=== PATIENT | female | born 1940 | race Caucasian/White ===

== ENCOUNTER 2016-12-08 23:11 | Inpatient (IN) | payer OTHER ==
--- NOTE | 2016-12-08 23:58 | PDOC ---
History of Present Illness - General History Source: Patient Exam Limitations: No Limitations - History of Present Illness Initial Comments: 12/09/16 00:34 The patient is a 76 year old female with significant past medical history of hypertension, hyperlipidemia, diabetes, and COPD who presents to the ED with few days of nonradiating left-sided chest pain with SOB. Patient states her SOB is exacerbated with exertion and alleviated while lying supine with rest. She takes ventolin every night, but for the past few days she felt no improvement with the treatment. She states her SOB is not consistent with her COPD exacerbation. Patient denies lightheadedness, diaphoresis, arm pain, shoulder pain, and jaw pain. Patient reports she is normally active and is able to ambulate with cane. However, for the past days she has been feeling tired and complains of generalized weakness and slight nonproductive cough. Upon arrival patient had one episode of nonbloody vomit. The patient denies fever, chills, abdominal pain and diarrhea. Allergies: NKDA Social History: No alcohol, tobacco, or drug use reported. Past Surgical History: appendectomy, cholecystectomy, right ankle ORIF, umbilical hernia repair PCP: Dr. Cody Adorno <Chrissy Kinsey - Last Filed: 12/09/16 01:53> - General History Source: Patient <Shiraz Green - Last Filed: 12/09/16 01:58> - General Chief Complaint: Shortness of Breath Stated Complaint: SOB Time Seen by Provider: 12/08/16 23:58 Past History <Chrissy Kinsey - Last Filed: 12/09/16 01:53> - Past Medical History Anemia: Yes Asthma: No Cancer: No Cardiac Disorders: No CVA: No COPD: No CHF: No Dementia: No Diabetes: Yes (NIDDM) GI Disorders: Yes (diverticulosis,constipation) Disorders: No HTN: Yes Hypercholesterolemia: Yes Liver Disease: No Seizures: No - Surgical History Abdominal Surgery: Yes (repair umbilical hernia) Appendectomy: Yes Cardiac Surgery: No Cholecystectomy: Yes Lung Surgery: No Neurologic Surgery: No Orthopedic Surgery: Yes (ORIF, RIGHT ANKLE) - Immunization History Immunization Up to Date: Yes - Psycho/Social/Smoking Cessation Hx Anxiety: No Suicidal Ideation: No Smoking History: Never smoked Have you smoked in the past 12 months: No If you are a former smoker, when did you quit?: 2010 Information on smoking cessation initiated: No 'Breaking Loose' booklet given: 05/04/12 Hx Alcohol Use: No Drug/Substance Use Hx: No Substance Use Type: None Hx Substance Use Treatment: No <Jacklyn Greenan - Last Filed: 12/09/16 01:58> - Past Medical History Allergies/Adverse Reactions: Allergies Allergy/AdvReac Type Severity Reaction Status Date / Time No Known Drug Allergies Allergy Verified 12/08/16 23:20 Home Medications: Ambulatory Orders Aspirin Coated [Ecotrin -] 81 mg PO DAILY 05/03/12 Ezetimibe/Simvastatin [Vytorin 10-20 mg Tablet] 1 each PO HS 05/03/12 Ferrous Gluconate 325 mg PO DAILY 05/03/12 Glyburide 2.5 mg PO BID 05/03/12 Metoprolol Succinate [Toprol XL -] 50 mg PO HS 05/03/12 Pregabalin [Lyrica] 100 mg PO HS 05/03/12 Budesonide/Formeterol Fumarate [SYMBICORT 160/4.5mcg -] 2 inh PO DAILY 12/31/13 Metformin HCl [Glucophage -] 500 mg PO DAILY 12/31/13 Meclizine HCl [Antivert -] 25 mg PO Q6H PRN #0 tablet 01/02/14 Tiotropium [place] [Spiriva] 1 inh PO DAILY #1 01/02/14 Cholecalciferol (Vitamin D3) [Vitamin D3] 1,000 unit PO DAILY 06/18/14 Cyanocobalamin [Vitamin B12 -] 1,000 mcg PO DAILY 06/18/14 Review of Systems - Review of Systems Able to Perform ROS?: Yes Comments:: 12/09/16 00:34 CONSTITUTIONAL: +generalized weakness Absent: fever, chills, diaphoresis, malaise, loss of appetite HEENT: Absent: rhinorrhea, nasal congestion, throat pain, throat swelling, difficulty swallowing, mouth swelling, ear pain, eye pain, visual Changes CARDIOVASCULAR: +left-sided chest pain Absent: syncope, palpitations, irregular heart rate, lightheadedness, peripheral edema RESPIRATORY: +SOB, cough Absent: orthopnea, wheezing, stridor, hemoptysis GASTROINTESTINAL: +vomit Absent: abdominal pain, abdominal distension, diarrhea, constipation, melena, hematochezia GENITOURINARY: Absent: dysuria, frequency, urgency, hesitancy, hematuria, flank pain, genital pain MUSCULOSKELETAL: Absent: myalgia, arthralgia, joint swelling SKIN: Absent: rash, itching, pallor NEUROLOGIC: Absent: headache, focal weakness or paresthesias, dizziness, unsteady gait, seizure, mental status changes, bladder or bowel incontinence <Chrissy Kinsey - Last Filed: 12/09/16 01:53> *Physical Exam - Vital Signs Last Vital Signs Temp Pulse Resp BP Pulse Ox 99.7 F H 122 H 20 121/58 95 12/08/16 23:14 12/08/16 23:14 12/08/16 23:14 12/08/16 23:14 12/08/16 23:14 - Physical Exam Comments: 12/09/16 00:34 GENERAL: Well developed, well nourished. Awake and alert. No acute distress. HEENT: Normocephalic, atraumatic. PERRLA, EOMI. No conjunctival pallor. Sclera are non- icteric. Moist mucous membranes. Oropharynx is clear. NECK: Supple. Full ROM. No JVD. Carotid pulses 2+ and symmetric, without bruits. No thyromegaly. No lymphadenopathy. CARDIOVASCULAR: Tachycardia. Regular rhythm. No murmurs, rubs, or gallops. Distal pulses are 2+ and symmetric. PULMONARY: No evidence of respiratory distress. Lungs clear to auscultation bilaterally. No wheezing, rales or rhonchi. ABDOMINAL: Soft. Non-tender. Non-distended. No rebound or guarding. No organomegaly. Normoactive bowel sounds. MUSCULOSKELETAL Normal range of motion at all joints. No bony deformities or tenderness. No CVA tenderness. EXTREMITIES: No cyanosis. No clubbing. No edema. No calf tenderness. SKIN: Warm and dry. Normal capillary refill. No rashes. No jaundice. NEUROLOGICAL: Alert, awake, appropriate. Cranial nerves 2-12 intact. Moving all extremities. No gross focal neurological deficits. PSYCHIATRIC: Cooperative. Good eye contact. Appropriate mood and affect. <Chrissy Kinsey - Last Filed: 12/09/16 01:53> - Vital Signs Last Vital Signs Temp Pulse Resp BP Pulse Ox 99.7 F H 122 H 20 121/58 95 12/08/16 23:14 12/08/16 23:14 12/08/16 23:14 12/08/16 23:14 12/08/16 23:14 <Shiraz Green - Last Filed: 12/09/16 01:58> Heart Score/ECG Review - ECG Impressions Comment:: 12/09/16 01:02 Sinus tachycardia @116bpm RBBB Abnormal ECG <Chrissy Kinsey - Last Filed: 12/09/16 01:53> ED Treatment Course - LABORATORY CBC & Chemistry Diagram: 12/09/16 00:50 12/09/16 00:50 <Chrissy Kinsey - Last Filed: 12/09/16 01:53> - LABORATORY CBC & Chemistry Diagram: 12/09/16 00:50 12/09/16 00:50 <Shiraz Green - Last Filed: 12/09/16 01:58> Medical Decision Making - Medical Decision Making 12/09/16 01:46 Dr. Green: The scribe's documentation has been prepared under my direction and personally reviewed by me in its entirery. I confirm that the note above accurately reflects all work, treatment, procedures, and medical decision making performed by me. patient's H&H are 6.5 and 20.We will admit for transfusion of packed RBCs. <Shiraz Green - Last Filed: 12/09/16 01:58> *DC/Admit/Observation/Transfer - Attestations Scribe Attestion: 12/09/16 00:34 Documentation prepared by Chrissy Kinsey, acting as medical observer for Shiraz Green MD <Chrissy Kinsey - Last Filed: 12/09/16 01:53> - Discharge Dispostion Admit: Yes <Shiraz Green - Last Filed: 12/09/16 01:58> Diagnosis at time of Disposition: SOB (shortness of breath) Anemia Qualifiers: Anemia type: other cause - Discharge Dispostion Condition at time of disposition: Stable - Referrals Referrals: Cody Adorno MD [Primary Care Provider] -
[2016-12-09] MEDS ORDERED: ALBUTEROL SO4 2.5/IPRATROPIUM 0.5 INH SOL 3 ML VIAL.NEB. NEB STA (00:08)
[2016-12-09 01:12] LABS: BASOPHIL 0.4 % (0-2.0); EOSINOPHIL 0.7 % (0-4.5); MCH 33.2 pg (25.7-33.7); MCHC 32.5 g/dl (32.0-36.0); MEAN CELL VOLUME 102.4 fl (80-96); NEUTROPHILS 80.3 % (42.8-82.8); RDW 18.3 % (11.6-15.6)
[2016-12-09 01:28] LABS: INR 1.42 (0.82-1.09); PROTHROMBIN TIME (PATIENT) 15.7 SEC (9.98-11.88)
[2016-12-09 01:41] LABS: ALBUMIN 2.9 g/dl (3.4-5.0); CALCIUM 8.2 mg/dL (8.5-10.1); MAGNESIUM 1.7 mg/dL (1.8-2.4)
[2016-12-09 01:47] LABS: BILIRUBIN,TOTAL 0.7 mg/dL (0.2-1.0); CREATININE 1.2 mg/dL (0.55-1.02); TROPONIN I 0.05 ng/ml (0.00-0.05)
[2016-12-09] MEDS ORDERED: ALBUTEROL SO4 2.5/IPRATROPIUM 0.5 INH SOL 3 ML VIAL.NEB. NEB ONE (02:02)
[2016-12-09 02:13] LABS: MEAN PLT VOLUME 6.7 fl (7.5-11.1); PLATELET COMMENT2 NO CLOTTING DETECTED; PLATELET COUNT 84 K/MM3 (134-434)
[2016-12-09 02:14] LABS: PLATELET ESTIMATE DECREASED (NORMAL)
--- NOTE | 2016-12-09 02:43 | PN ---
<Brittney Zaragoza - Last Filed: 12/09/16 04:20> Teaching Attending Note ATTENDING PHYSICIAN STATEMENT I saw and evaluated the patient. I reviewed the resident's note and discussed the case with the resident. I agree with the resident's findings and plan as documented. Imaging data and chart reviewed SUBJECTIVE: Patient is a 76 yo F with a PMHx of hypertension, hyperlipidemia, diabetes, and COPD who presents with SOB and exercise intolerance which worsened over the past 1-2 days. Patient notes her SOB is exacerbated by exertion and alleviated when she is at rest. She notes that that her SOB is not consistent with her typical COPD symptoms. Patient also reports an associated dry cough. Patient also vomited once upon arrival to the ED. Patient reports there was no blood in the vomit. She denies bleeding anywhere recently. Patient reports chronic arthritic shoulder pain in addition to her chief complaint of SOB. Denies: fever, chills, abdominal pain and diarrhea. Allergies: NKDA Social History: Former smoker, quit 10 years ago, 2 ppd from ages [age] yo. No alcohol, or drug use reported. Past Surgical History: appendectomy, cholecystectomy, right ankle ORIF, umbilical hernia repair, endarterectomy, PCP: Dr. Cody Adorno OBJECTIVE: Last Vital Signs Temp Pulse Resp BP Pulse Ox 98.1 F 122 H 20 121/58 95 12/09/16 04:04 12/08/16 23:14 12/08/16 23:14 12/08/16 23:14 12/08/16 23:14 GENERAL: Awake, alert, and fully oriented, in no acute distress. HEENT: Atraumatic. Moist mucosa. Normocephalic. No sinus tenderness. No LAD. Pale sclera bilaterally. NECK: No JVD. No thyroid masses. Supple. Left oblique neck scar. LUNGS: Slight bilateral crackles L more than R. HEART: Regular rate and rhythm, normal S1 and S2, hollow systolic murmur noted, peripheral pulses normal and equal bilaterally. ABDOMEN: Obese, soft, nontender, normoactive bowel sounds. No guarding, no rebound. No Masses. No hepatosplenomegaly noted. MUSCULOSKELETAL: No joint tenderness or erythema. No muscle tenderness. Normal muscle bulk and tone. EXTREMITIES: Normal inspection, No edema. No clubbing or cyanosis. Moves all extremities. NEUROLOGICAL: Normal speech, no focal sensorimotor deficits. SKIN: Warm, dry, normal turgor, no rashes or lesions noted. CBCD WBC 6.0 K/mm3 (4.0-10.0) D 12/09/16 00:50 RBC 1.95 M/mm3 (3.60-5.2) L D 12/09/16 00:50 Hgb 6.5 GM/dL (10.7-15.3) L* D 12/09/16 00:50 Hct 20.0 % (32.4-45.2) L D 12/09/16 00:50 MCV 102.4 fl (80-96) H 12/09/16 00:50 MCHC 32.5 g/dl (32.0-36.0) 12/09/16 00:50 RDW 18.3 % (11.6-15.6) H D 12/09/16 00:50 Plt Count 84 K/MM3 (134-434) L D 12/09/16 00:50 MPV 6.7 fl (7.5-11.1) L 12/09/16 00:50 CMP Sodium 142 mmol/L (136-145) 12/09/16 00:50 Potassium 3.7 mmol/L (3.5-5.1) 12/09/16 00:50 Chloride 108 mmol/L (98-107) H 12/09/16 00:50 Carbon Dioxide 19 mmol/L (21-32) L D 12/09/16 00:50 Anion Gap 15 (8-16) 12/09/16 00:50 BUN 31 mg/dL (7-18) H D 12/09/16 00:50 Creatinine 1.2 mg/dL (0.55-1.02) H 12/09/16 00:50 Creat Clearance w eGFR 43.56 (>60) 12/09/16 00:50 Calcium 8.2 mg/dL (8.5-10.1) L 12/09/16 00:50 Total Bilirubin 0.7 mg/dL (0.2-1.0) 12/09/16 00:50 AST 21 U/L (15-37) 12/09/16 00:50 ALT 17 U/L (12-78) D 12/09/16 00:50 Alkaline Phosphatase 43 U/L (45-117) L D 12/09/16 00:50 Total Protein 6.0 g/dl (6.4-8.2) L 12/09/16 00:50 Albumin 2.9 g/dl (3.4-5.0) L D 12/09/16 00:50 Chest X-ray Impression: Left small pleural effusion vs atelectasis. No obvious consolidations noted. Pending official report. ASSESSMENT AND PLAN: Patient is a 76 yo F with a PMHx of hypertension, hyperlipidemia, diabetes, and COPD who was admitted for symptomatic anemia. 1.) Symptomatic Macrocytic Anemia uncertain etiology. Denies ETOH abuse or thyroid disorders. -Send Vitamin B12 level -TSH -Send ferritin -Send iron studies -Send haptoglobin -Send josesito test -Peripheral RBC smear -G6 PD level -Send fecal culture blood test in stool -Hematology eval in AM -Vitamin B12 and folate supplementation -Transfuse 1 unit of PRBC 2.) Thrombocytopenia of undetermined etiology should rule out splenomegaly and medication induced causes -Abdominal US -Send hepatitis panel -Send HIV serology if pt agrees 3.) WAYNE -Send urine lytes -UA -Gentle IV fluid hydration 4.) DM -Insulin Sliding scale -Diabetic diet 5.) COPD controlled. No signs of current exacerbation. -Continue albuterol PRN -Continue home meds 6.) DVT ppx avoid heparin in light of thrombocytopenia and anemia. -Intermittent compression stockings Documentation prepared by Brittney Zaragoza, acting as medical doctor for Macario Davies M.D. <Macario Davies - Last Filed: 02/13/17 07:02> Teaching Attending Note Name of Resident: Tiffanie Nunez ATTENDING PHYSICIAN STATEMENT I saw and evaluated the patient. I reviewed the resident's note and discussed the case with the resident. I agree with the resident's findings and plan as documented. SUBJECTIVE: OBJECTIVE: ASSESSMENT AND PLAN:
--- NOTE | 2016-12-09 02:49 | HP ---
CHIEF COMPLAINT: Shortness of breath PCP: Dr. Cody Adorno HISTORY OF PRESENT ILLNESS: Patient is a 76 year old female with a PMHx of HTN, HLD, DMII, and COPD who presents for increasing shortness of breath for the last week that worsened in the last two days. Patient reports the shortness of breath is exacerbated on exertion. Patient states when she walks through the hallway of her house or goes up the stairs, after 7 steps, she begins to have shortness of breath. Patient also reports chronic left neck and shoulder pain due to nerve damage that is causing her to have reproducible left chest soreness. Patient does report she had one episode of nonbloody nonbilious vomiting when arriving to the ED as well as a dry cough. Patient reports these symptoms are not typical COPD symptoms. Otherwise, patient denies any fever, chills, nausea, abdominal pain, palpitations, headaches, diaphoresis, acute visual changes, dizziness, loss of consciousness. ER course was notable for: (1) Chest x-ray (2) DuoNeb x1 (3) Recent Travel: Denies PAST MEDICAL HISTORY: HTN, HLD, DMII, and COPD PAST SURGICAL HISTORY: appendectomy, cholecystectomy, right ankle ORIF, umbilical hernia repair, endarterectomy Social History: Smoking: Former smoker, quit 10 years ago. Smoked 2PPD from age [age]. Alcohol: Denies Drugs: Denies Family History: Denies Allergies: No Known Drug Allergies Allergy (Verified 12/08/16 23:20) HOME MEDICATIONS: Medication Instructions Recorded Aspirin Coated [Ecotrin -] 81 mg PO DAILY 05/03/12 Ezetimibe/Simvastatin [Vytorin 1 each PO HS 05/03/12 10-20 mg Tablet] Ferrous Gluconate 325 mg PO DAILY 05/03/12 Glyburide 2.5 mg PO BID 05/03/12 Metoprolol Succinate [Toprol XL -] 50 mg PO HS 05/03/12 Pregabalin [Lyrica] 100 mg PO HS 05/03/12 Budesonide/Formeterol Fumarate 2 inh PO DAILY 12/31/13 [SYMBICORT 160/4.5mcg -] Metformin HCl [Glucophage -] 500 mg PO DAILY 12/31/13 Meclizine HCl [Antivert -] 25 mg PO Q6H PRN #0 tablet 01/02/14 Tiotropium [place] [Spiriva] 1 inh PO DAILY #1 01/02/14 Cholecalciferol (Vitamin D3) 1,000 unit PO DAILY 06/18/14 [Vitamin D3] Cyanocobalamin [Vitamin B12 -] 1,000 mcg PO DAILY 06/18/14 REVIEW OF SYSTEMS CONSTITUTIONAL: Absent: fever, chills, diaphoresis, generalized weakness, malaise, loss of appetite, weight change HEENT: Absent: rhinorrhea, nasal congestion, throat pain, throat swelling, difficulty swallowing, mouth swelling, ear pain, eye pain, visual changes CARDIOVASCULAR: Absent: chest pain, syncope, palpitations, irregular heart rate, lightheadedness , peripheral edema RESPIRATORY: Absent: cough, shortness of breath, dyspnea with exertion, orthopnea, wheezing, stridor, hemoptysis GASTROINTESTINAL: Absent: abdominal pain, abdominal distension, nausea, vomiting, diarrhea, constipation, melena, hematochezia GENITOURINARY: Absent: dysuria, frequency, urgency, hesitancy, hematuria, flank pain, genital pain MUSCULOSKELETAL: Absent: myalgia, arthralgia, joint swelling, back pain, neck pain SKIN: Absent: rash, itching, pallor HEMATOLOGIC/IMMUNOLOGIC: Absent: easy bleeding, easy bruising, lymphadenopathy, frequent infections ENDOCRINE: Absent: unexplained weight gain, unexplained weight loss, heat intolerance, cold intolerance NEUROLOGIC: Absent: headache, focal weakness or paresthesias, dizziness, unsteady gait, seizure, mental status changes, bladder or bowel incontinence PSYCHIATRIC: Absent: anxiety, depression, suicidal or homicidal ideation, hallucinations. PHYSICAL EXAMINATION Vital Signs - 24 hr 12/08/16 23:14 Temperature 99.7 F H Pulse Rate 122 H Respiratory 20 Rate Blood Pressure 121/58 O2 Sat by Pulse 95 Oximetry (%) GENERAL: Awake, alert, and fully oriented, in no acute distress. HEAD: Normal with no signs of trauma. EYES: Pupils equal, round and reactive to light, extraocular movements intact, sclera anicteric, conjunctiva clear. No lid lag. EARS, NOSE, THROAT: Ears normal, nares patent, oropharynx clear without exudates. Moist mucous membranes. NECK: Supple without lymphadenopathy, thyromegaly, JVD, or masses. LUNGS: Bibasilar crackles, no wheezes. No accessory muscle use. HEART: Regular rate and rhythm, normal S1 and S2 without murmur, rub or gallop. ABDOMEN: Obese, Soft, nontender, not distended, normoactive bowel sounds, no guarding, no rebound, no masses. No hepatomegaly or splenomegaly. . EXTREMITIES: No calf tenderness. No peripheral edema. No clubbing or cyanosis. NEUROLOGICAL: No focal deficits. Normal speech. SKIN: Warm, dry, normal turgor, no rashes or lesions noted. Laboratory Results - last 24 hr 12/09/16 12/09/16 12/09/16 00:50 00:50 00:50 WBC 6.0 D RBC 1.95 L D Hgb 6.5 L* D Hct 20.0 L D MCV 102.4 H MCHC 32.5 RDW 18.3 H D Plt Count 84 L D MPV 6.7 L Neutrophils % 80.3 D Lymphocytes % 11.4 D Monocytes % 7.2 Eosinophils % 0.7 Basophils % 0.4 Platelet Estimate Decreased Platelet Comment No clotting detected INR 1.42 H Sodium 142 Potassium 3.7 Chloride 108 H Carbon Dioxide 19 L D Anion Gap 15 BUN 31 H D Creatinine 1.2 H Creat Clearance w eGFR 43.56 Random Glucose 182 H D Calcium 8.2 L Magnesium 1.7 L Total Bilirubin 0.7 AST 21 ALT 17 D Alkaline Phosphatase 43 L D Creatine Kinase 71 Troponin I 0.05 B-Natriuretic Peptide 205.43 Total Protein 6.0 L Albumin 2.9 L D Crossmatch 12/09/16 02:20 WBC RBC Hgb Hct MCV MCHC RDW Plt Count MPV Neutrophils % Lymphocytes % Monocytes % Eosinophils % Basophils % Platelet Estimate Platelet Comment INR Sodium Potassium Chloride Carbon Dioxide Anion Gap BUN Creatinine Creat Clearance w eGFR Random Glucose Calcium Magnesium Total Bilirubin AST ALT Alkaline Phosphatase Creatine Kinase Troponin I B-Natriuretic Peptide Total Protein Albumin Crossmatch See Detail EKG: Sinus tachycardia @116bpm RBBB Abnormal ECG Chest X-ray: Cardiomegaly with increased pulmonary markings. Left pleural effusion vs. atelectasis ASSESSMENT/PLAN: Patient is a 76 year old female with a PMHx of HTN, HLD, DMII, and COPD who presented to the ED complaining of shortness of breath and was found to have symptomatic anemia with a hemoglobin of 6.5 and thrombocytopenia. Patient admitted to med/surg for further monitoring and management. Symptomatic Macrocytic Anemia -Denies alcohol abuse or thyroid disorder -Ferritin, TIBC, FE, Haptoglobin, Reticulocyte, LDH ordered -TSH ordered -Vitamin B12 ordered -Acute Hepatitis Panel ordered -2 units of PRBC's ordered -Repeat CBC -Recommend ordering peripheral smear -Stool for occult blood ordered -Heme/Onco consult placed Thrombocytopenia of unknown etiology -Abdominal U/S to rule out splenomegaly -HIV panel ordered -Hepatitis panel ordered -Continue to monitor CBC Acute Kidney Injury -Creatinine of 1.2 with baseline of 1.0 -Light hydration with IV NS @50mls/hr -Urine electrolytes -U/A CAD -Continue ASA 81mg HTN -Continue Toprol XL 50mg daily -Continue to monitor BP DMII -Insulin sliding scale -BGM HLD -Continue Vytorin 10-20mg COPD -Continue Spiriva and Symbicort F/E/N -Light hydration with 50mls/hr -Electrolytes wnl -Diabetic and sodium controlled diet Prophylaxis -SCD's for DVT -No GI required Disposition -Full code -Admitted to med/surg. Awaiting Hematology evaluation Visit type - Emergency Visit Emergency Visit: Yes ED Registration Date: 12/09/16 Care time: The patient presented to the Emergency Department on the above date and was hospitalized for further evaluation of their emergent condition. - New Patient This patient is new to me today: Yes Date on this admission: 12/09/16 - Critical Care Critical Care patient: No
[2016-12-09] MEDS ORDERED: SODIUM CHLORIDE 1,000 ML IV SCH (03:00)
[2016-12-09] MEDS ORDERED: LIDOCAINE 5% TOPICAL PATCH TP SCH (04:00)
[2016-12-09 04:34] LABS: FERRITIN 22.868 ng/ml (6.9-282.5); THYROID STIMULATING HORMONE 3.51 uIU/ml (0.358-3.74)
[2016-12-09] MEDS ORDERED: ACETAMINOPHEN 325 MG TABLET (FP) PO PRN (06:34)
[2016-12-09] MEDS: SODIUM CHLORIDE 1,000 ML IV SCH ×2 (08:47→17:22)
[2016-12-09 08:57] LABS: BASOPHIL 0.6 % (0-2.0); EOSINOPHIL 1.4 % (0-4.5); MCH 33.1 pg (25.7-33.7); MCHC 32.7 g/dl (32.0-36.0); MEAN CELL VOLUME 101.4 fl (80-96); MEAN PLT VOLUME 6.7 fl (7.5-11.1); NEUTROPHILS 67.3 % (42.8-82.8); PLATELET COUNT 78 K/MM3 (134-434); RDW 18.3 % (11.6-15.6); WHITE BLOOD COUNT 4.3 K/mm3 (4.0-10.0)
[2016-12-09 09:44] LABS: CALCIUM 7.9 mg/dL (8.5-10.1); CREATININE 1.1 mg/dL (0.55-1.02); TOT PROT 5.8 g/dl (6.4-8.2); TROPONIN I 0.3 ng/ml (0.00-0.05)
[2016-12-09 10:42] LABS: HIV 1 & 2 AB NEGATIVE; HIV 1 AGp24 NEGATIVE
[2016-12-09] MEDS: TIOTROPIUM BROMIDE 18 MCG/INH (DEVICE W/ 5 CAPSULES) IH SCH (12:49)
[2016-12-09] MEDS: ASPIRIN 81 MG CHEWABLE TABLETS PO SCH (12:49)
[2016-12-09] MEDS: BUDESONIDE/FORMETEROL FUMARATE 160/4.5 mcg INHALER IH SCH (12:50)
[2016-12-09 14:07] VITALS: BMI 31.4
--- NOTE | 2016-12-09 14:12 | EKG ---
Test Reason : Blood Pressure : / mmHG Vent. Rate : 116 BPM Atrial Rate : 116 BPM P-R Int : 154 ms QRS Dur : 138 ms QT Int : 376 ms P-R-T Axes : 059 083 032 degrees QTc Int : 522 ms SINUS TACHYCARDIA RIGHT BUNDLE BRANCH BLOCK ABNORMAL ECG WHEN COMPARED WITH ECG OF 16-SEP-2016 18:26, BORDERLINE CRITERIA FOR LATERAL INFARCT ARE NO LONGER PRESENT Confirmed by CHRIS HU MD ([id number]) on 12/09/2016 2:12:11 PM Referred By: Confirmed By:CHRIS HU MD
[2016-12-09] MEDS: INSULIN SLIDING SCALE (NOVOLOG) 1 VIAL SQ SCH ×4 (14:47→21:53)
--- NOTE | 2016-12-09 16:32 | CONSULT ---
Consult - text type - Consultation Consultation Note: The patient is a 76 year old female with significant past medical history of hypertension, hyperlipidemia, diabetes, and COPD who presents to the ED with few days of nonradiating left-sided chest pain with SOB. Patient states her SOB is exacerbated with exertion and alleviated while lying supine with rest. Patient denies lightheadedness, diaphoresis, arm pain, shoulder pain, and jaw pain. Patient reports she is normally active and is able to ambulate with cane. However, for the past days she has been feeling tired and complains of generalized weakness and slight nonproductive cough. The patient denies fever, chills, abdominal pain and diarrhea. Allergies: NKDA Social History: No alcohol, tobacco, or drug use reported. Past Surgical History: appendectomy, cholecystectomy, right ankle ORIF, umbilical hernia repair - Past Medical History Anemia: Yes Diabetes: Yes (NIDDM) GI Disorders: Yes (diverticulosis,constipation) HTN: Yes Hypercholesterolemia: Yes - Surgical History Abdominal Surgery: Yes (repair umbilical hernia) Appendectomy: Yes Cholecystectomy: Yes Orthopedic Surgery: Yes (ORIF, RIGHT ANKLE) - Immunization History Immunization Up to Date: Yes - Psycho/Social/Smoking Cessation Hx Smoking History: Never smoked Allergies/Adverse Reactions: Allergies Allergy/AdvReac Type Severity Reaction Status Date / Time No Known Drug Allergies Allergy Verified 12/08/16 23:20 Home Medications: Ambulatory Orders Aspirin Coated [Ecotrin -] 81 mg PO DAILY 05/03/12 Ezetimibe/Simvastatin [Vytorin 10-20 mg Tablet] 1 each PO HS 05/03/12 Ferrous Gluconate 325 mg PO DAILY 05/03/12 Glyburide 2.5 mg PO BID 05/03/12 Metoprolol Succinate [Toprol XL -] 50 mg PO HS 05/03/12 Pregabalin [Lyrica] 100 mg PO HS 05/03/12 Budesonide/Formeterol Fumarate [SYMBICORT 160/4.5mcg -] 2 inh PO DAILY 12/31/13 Metformin HCl [Glucophage -] 500 mg PO DAILY 12/31/13 Meclizine HCl [Antivert -] 25 mg PO Q6H PRN #0 tablet 01/02/14 Tiotropium [place] [Spiriva] 1 inh PO DAILY #1 01/02/14 Cholecalciferol (Vitamin D3) [Vitamin D3] 1,000 unit PO DAILY 06/18/14 Cyanocobalamin [Vitamin B12 -] 1,000 mcg PO DAILY 06/18/14 Current Medications Acetaminophen (Tylenol -) 650 mg PO Q6H PRN PRN Reason: PAIN Aspirin (Asa -) 81 mg PO DAILY [facility] Last Admin: 12/09/16 12:49 Dose: 81 mg Atorvastatin Calcium (Lipitor -) 10 mg PO HS [facility] Budesonide/Formoterol Fumarate (Symbicort 160/4.5mcg -) 2 puff IH DAILY [facility] Last Admin: 12/09/16 12:50 Dose: 2 inh Ezetimibe (Zetia -) 10 mg PO HS [facility] Sodium Chloride (Normal Saline -) 1,000 mls @ 83 mls/hr IV ASDIR [facility] Last Admin: 12/09/16 07:05 Dose: Not Given Sodium Chloride (Normal Saline -) 1,000 mls @ 50 mls/hr IV ASDIR [facility] Stop: 12/10/16 05:48 Last Admin: 12/09/16 08:47 Dose: Not Given Insulin Aspart (Novolog Vial Sliding Scale -) 1 vial SQ ACHS [facility] PRN Reason: Protocol Last Admin: 12/09/16 14:48 Dose: Not Given Lidocaine (Lidoderm Patch -) 1 patch TP ASDIR [facility] Last Admin: 12/09/16 07:04 Dose: Not Given Metoprolol Succinate (Toprol Xl -) 50 mg PO [facility] Tiotropium [place] (Spiriva -) 1 puff IH DAILY [facility] Last Admin: 12/09/16 12:49 Dose: 1 puff - Vital Signs Last Vital Signs Temp Pulse Resp BP Pulse Ox 99.7 F H 122 H 20 121/58 95 12/08/16 23:14 12/08/16 23:14 12/08/16 23:14 12/08/16 23:14 12/08/16 23:14 HEENT: ALLEN, EOM Intact Cor: RSR, No murmurs, No gallops Lungs: Clear to P&A Abd: Soft, Normal bowel sounds, No organomegaly Ext:No significant edema Skin: No rashes, Integument intact Abnormal Lab Results 12/09/16 12/09/16 12/09/16 00:50 00:50 00:50 RBC 1.95 L D Hgb 6.5 L* D Hct 20.0 L D MCV 102.4 H RDW 18.3 H D Plt Count 84 L D MPV 6.7 L Retic Count INR 1.42 H Chloride 108 H Carbon Dioxide 19 L D BUN 31 H D Creatinine 1.2 H Random Glucose 182 H D Calcium 8.2 L Magnesium 1.7 L Alkaline Phosphatase 43 L D Troponin I Total Protein 6.0 L Albumin 2.9 L D Direct Antiglob Test Crossmatch 12/09/16 12/09/16 12/09/16 00:50 02:20 06:00 RBC 2.13 L Hgb 7.1 L Hct 21.6 L MCV 101.4 H RDW 18.3 H Plt Count 78 L MPV 6.7 L Retic Count 13.28 H* INR Chloride Carbon Dioxide BUN Creatinine Random Glucose Calcium Magnesium Alkaline Phosphatase Troponin I Total Protein Albumin Direct Antiglob Test Crossmatch See Detail 12/09/16 12/09/16 08:15 08:40 RBC Hgb Hct MCV RDW Plt Count MPV Retic Count INR Chloride 112 H Carbon Dioxide 20 L BUN 31 H Creatinine 1.1 H Random Glucose 125 H D Calcium 7.9 L Magnesium Alkaline Phosphatase 42 L Troponin I 0.30 H Total Protein 5.8 L Albumin 3.0 L Direct Antiglob Test Positive H Crossmatch A/P 76 y/o patient with HTN, DM. COPD, comes in with symptomatic anemia Macrocytic anemia-- chronic macrocytosis/new onset anemia acute onset ---nl hemoglobin 11/16 nl B12/TSH Liver U/S -- hepatosplenomegaly with coarse echotexture s/o liver disease vs fatty liver Will check stool occult ferritin --22 await iron saturation LDH--nlhaptoglobin pending. Edilia 1+ IgG/C3 neg. LDH nl hence brisk hemolysis unlikely Reticulocyte production index > 3% suggestive of normal marrow response to severe anemia Suspect liver disease/ and acute onset suggestive of gi bleed MDS in the differential but less likely Would get GI consult Thrombocytopenia -- chronic since 2010 ?--suspect liver disease MDS/ITP is in the differential but less likely Patient refusing any invasive w/u at this time. In the past refused liver biopsy. will follow
[2016-12-09] MEDS ORDERED: INSULIN (NOVOLOG) ASPART 100 UNITS/ML 10ML VIAL ONE (16:41)
--- NOTE | 2016-12-09 17:17 | PN ---
Physical Exam: SUBJECTIVE: Patient seen and examined at bedside in ER. Pt states she has had increasing sob for 1 week that has worsened over last 2 days and is exacerbated with exertion. She had 1 episode on non-bilious, non-bloody vomitus in ED this AM. Currently feels better after receiving 1st of 2 PRBCs. She did feel as though she had tachycardia at times during this week. Currently denies N/V/F/C , SOB at rest, CP, light-headedness, dizziness, palpitations. OBJECTIVE: Vital Signs Temperature 97.9 F 12/09/16 14:04 Pulse Rate 91 H 12/09/16 14:04 Respiratory Rate 16 12/09/16 14:04 Blood Pressure 105/57 12/09/16 14:04 O2 Sat by Pulse Oximetry (%) 97 12/09/16 13:09 GENERAL: The patient is awake, alert, and fully oriented, in no acute distress. HEAD: Normal with no signs of trauma. EYES: PERRL, extraocular movements intact, sclera anicteric, conjunctiva clear. No ptosis. ENT: Ears normal, nares patent, oropharynx clear without exudates, moist mucous membranes. NECK: Trachea midline, full range of motion, supple. LUNGS: Breath sounds equal, clear to auscultation bilaterally, no wheezes, no crackles, no accessory muscle use. HEART: Regular rate and rhythm, S1, S2 without murmur, rub or gallop. ABDOMEN: Soft, nontender, nondistended, normoactive bowel sounds, no guarding, no rebound, no hepatosplenomegaly, no masses. EXTREMITIES: 2+ pulses, warm, well-perfused, no edema. NEUROLOGICAL: . Normal speech, gait not observed. PSYCH: Normal mood, normal affect. SKIN: Warm, dry, normal turgor, no rashes or lesions noted Laboratory Results - last 24 hr 12/09/16 12/09/16 12/09/16 02:20 04:00 04:00 WBC RBC Hgb Hct MCV MCHC RDW Plt Count MPV Neutrophils % Lymphocytes % Monocytes % Eosinophils % Basophils % Haptoglobin Cancelled Sodium Potassium Chloride Carbon Dioxide Anion Gap BUN Creatinine Creat Clearance w eGFR Random Glucose Calcium Ferritin 22.868 Total Bilirubin AST ALT Alkaline Phosphatase LD Total 178 Troponin I Total Protein Albumin Vitamin B12 648 TSH 3.51 HIV 1&2 Antibody Screen HIV P24 Antigen Blood Type A POSITIVE Antibody Screen Negative Direct Antiglob Test Crossmatch See Detail 12/09/16 12/09/16 12/09/16 06:00 08:15 08:40 WBC 4.3 RBC 2.13 L Hgb 7.1 L Hct 21.6 L MCV 101.4 H MCHC 32.7 RDW 18.3 H Plt Count 78 L MPV 6.7 L Neutrophils % 67.3 Lymphocytes % 21.5 D Monocytes % 9.2 Eosinophils % 1.4 D Basophils % 0.6 Haptoglobin Sodium 145 Potassium 4.0 Chloride 112 H Carbon Dioxide 20 L Anion Gap 13 BUN 31 H Creatinine 1.1 H Creat Clearance w eGFR 48.16 Random Glucose 125 H D Calcium 7.9 L Ferritin Total Bilirubin 1.0 D AST 20 ALT 18 Alkaline Phosphatase 42 L LD Total Troponin I 0.30 H Total Protein 5.8 L Albumin 3.0 L Vitamin B12 TSH HIV 1&2 Antibody Screen HIV P24 Antigen Blood Type Antibody Screen Direct Antiglob Test Positive H Crossmatch 12/09/16 08:40 WBC RBC Hgb Hct MCV MCHC RDW Plt Count MPV Neutrophils % Lymphocytes % Monocytes % Eosinophils % Basophils % Haptoglobin Sodium Potassium Chloride Carbon Dioxide Anion Gap BUN Creatinine Creat Clearance w eGFR Random Glucose Calcium Ferritin Total Bilirubin AST ALT Alkaline Phosphatase LD Total Troponin I Total Protein Albumin Vitamin B12 TSH HIV 1&2 Antibody Screen Negative HIV P24 Antigen Negative Blood Type Antibody Screen Direct Antiglob Test Crossmatch Active Medications Generic Name Dose Route Start Last Admin Trade Name Freq PRN Reason Stop Dose Admin Acetaminophen 650 mg 12/09/16 06:34 Tylenol - PO Q6H PRN PAIN Aspirin 81 mg 12/09/16 10:00 12/09/16 12:49 Asa - PO 81 mg DAILY KRIS Administration Atorvastatin Calcium 10 mg 12/09/16 22:00 Lipitor - PO HS KRIS Budesonide/Formoterol Fumarate 2 puff 12/09/16 10:00 12/09/16 12:50 Symbicort 160/4.5mcg - IH 2 inh DAILY KRIS Administration Ezetimibe 10 mg 12/09/16 22:00 Zetia - PO HS KRIS Sodium Chloride 1,000 mls @ 50 mls/hr 12/09/16 06:00 12/09/16 08:47 Normal Saline - IV 12/10/16 05:48 Not Given ASDIR KRIS Insulin Aspart 1 vial 12/09/16 07:00 12/09/16 16:42 Novolog Vial Sliding Scale - SQ 2 units ACHS KRIS Administration Protocol Lidocaine 1 patch 12/09/16 04:00 12/09/16 07:04 Lidoderm Patch - TP Not Given ASDIR KRIS Metoprolol Succinate 50 mg 12/09/16 22:00 Toprol Xl - PO HS KRIS Tiotropium [place] 1 puff 12/09/16 10:00 12/09/16 12:49 Spiriva - IH 1 puff DAILY KRIS Administration ASSESSMENT/PLAN: 76 y/o F with PMH of HTN, HLD, DMII, and COPD who presented to the ED with progressively worsening SOB over 1 week and found to have macrocytic anemia with a Hgb of 6.5 -SOB secondary to macrocytic anemia -2 PRBCs transfused -f/u CBC after 2nd unit -f/u iron studies, haptoglobin, fobt -ferritin 22 -B12, TSH nl -retic 13 -GI consulted -Thrombocytopenia -Pt states she has a baseline of platelets in 70s and follows them with Dr. Adorno -heme/onc on board -abd u/s: hepatosplenomegaly with coarse echotexture s/o liver disease vs fatty liver -secondary to liver disease -HIV negative -f/u hep panel -WAYNE -Cr 1.1, baseline 1 -improving -NS @ 50ml/hr -CAD -c/w asa -HTN -c/w toprol xl 50 mg po qd -DMII -c/w ISS, BGMs -COPD -c/w spiriva and symbicort -HLD -c/w zetia 10 mg po qhs -DVT ppx -SCDs -FEN -NS@50ml/hr -Diabetic and sodium controlled diet Problem List - Problems (1) Anemia Code(s): D64.9 - ANEMIA, UNSPECIFIED Qualifiers: Anemia type: other cause (2) SOB (shortness of breath) Code(s): R06.02 - SHORTNESS OF BREATH (3) CAD (coronary artery disease) Code(s): I25.10 - ATHSCL HEART DISEASE OF [place] CORONARY ARTERY W/O ANG PCTRS Qualifiers: Coronary Disease-Associated Artery/Lesion type: [place] artery [place] vs. transplanted heart: [place] heart Associated angina: without angina Qualified Code(s): I25.10 - Atherosclerotic heart disease of [place] coronary artery without angina pectoris (4) COPD (chronic obstructive pulmonary disease) Code(s): J44.9 - CHRONIC OBSTRUCTIVE PULMONARY DISEASE, UNSPECIFIED Qualifiers : COPD type: unspecified COPD Qualified Code(s): J44.9 - Chronic obstructive pulmonary disease, unspecified (5) Diabetes Code(s): E11.9 - TYPE 2 DIABETES MELLITUS WITHOUT COMPLICATIONS Qualifiers: Diabetes mellitus type: type 2 Diabetes mellitus complication status: without complication Diabetes mellitus nursing home insulin use: without termite treater use Qualified Code(s): E11.9 - Type 2 diabetes mellitus without complications (6) HTN (hypertension) Code(s): I10 - ESSENTIAL (PRIMARY) HYPERTENSION Qualifiers: Hypertension type: essential hypertension Qualified Code(s): I10 - Essential (primary) hypertension (7) Hypercholesterolemia Code(s): E78.0 - PURE HYPERCHOLESTEROLEMIA * DO NOT USE * Visit type - Emergency Visit Emergency Visit: Yes ED Registration Date: 12/09/16 Care time: The patient presented to the Emergency Department on the above date and was hospitalized for further evaluation of their emergent condition. - New Patient This patient is new to me today: Yes Date on this admission: 12/09/16 - Critical Care Critical Care patient: No
[2016-12-09] MEDS ORDERED: LIDOCAINE 5% TOPICAL PATCH TP ONE (17:42)
[2016-12-09 18:07] LABS: URINE APPEARANCE CLEAR; URINE BILIRUBIN NEGATIVE (NEGATIVE); URINE BLOOD NEGATIVE (NEGATIVE); URINE COLOR LTYELLOW; URINE GLUCOSE (UA) NEGATIVE (NEGATIVE); URINE KETONE NEGATIVE (NEGATIVE); URINE NITRITE NEGATIVE (NEGATIVE); URINE PROTEIN NEGATIVE (NEGATIVE); URINE UROBILINOGEN NEGATIVE E.U./dl (0.2-1.0)
[2016-12-09 18:08] LABS: URINE LEUK ESTERASE TRACE (NEGATIVE)
[2016-12-09 18:10] LABS: BASOPHIL 1.1 % (0-2.0); EOSINOPHIL 1.8 % (0-4.5); MEAN CELL VOLUME 99.8 fl (80-96); MEAN PLT VOLUME 7.4 fl (7.5-11.1); NEUTROPHILS 62.2 % (42.8-82.8); PLATELET COUNT 77 K/MM3 (134-434); RDW 17.4 % (11.6-15.6); WHITE BLOOD COUNT 4.4 K/mm3 (4.0-10.0)
[2016-12-09 18:15] LABS: URINE BACTERIA RARE /hpf (NONE SEEN); URINE RBC 1 /hpf (0-3); URINE WBC 1 /hpf (3-5)
[2016-12-09 18:16] LABS: URINE CREATININE 83.8 mg/dL
--- NOTE | 2016-12-09 19:05 | PN ---
Teaching Attending Note Name of Resident: Mc Colon ATTENDING PHYSICIAN STATEMENT I saw and evaluated the patient. I reviewed the resident's note and discussed the case with the resident. I agree with the resident's findings and plan as documented. SUBJECTIVE:currently asymptomatic. denies CP, SOB,fever, chills, N/V/C/D, melena , BRBPR. states shes been having dark stools since shes been placed on iron for "long time". had colonoscopy/EGD several years ago which is negative as per pt. OBJECTIVE: Last Vital Signs Temp Pulse Resp BP Pulse Ox 97.9 F 91 H 16 105/57 97 12/09/16 14:04 12/09/16 14:04 12/09/16 14:04 12/09/16 14:04 12/09/16 13:09 General NAD, CV S1 S2 RRR +systolic murmur Lungs CTA B/L no wheezing/rales/rhonchi Abdomen soft NT/ND no rebound or guarding ASSESSMENT AND PLAN: 76yo F wtih PMH HTN, dyslipidemia, DM, and COPD presented to the ER and was admitted for further evaluation of their emergent condition 1. Symptomatic anemia- s/p 1 unit PRBC without appropriate response. currently transfusing 2nd unit. will check repeat and txn more if necessary. elevated retic count. therefore bone marrow working appropriately. hematology evaluated and full workup pending. will consult GI as FOBT + although low suspicion for GI cause of bleed. 2. Thrombocytopenia- hx of. will obtain old records from PMD to determine what workup has been done. HIV negative 3. WAYNE- dehydration. IVF given now resolved. avoid nephrotoxic medication 4. HTN- controlled 5. DM- controlled. hold oral agents. iss, Bgm 6. COPD- no sign of acute exacerbation. cont inhalers 7. DVT ppx- EAM
[2016-12-09] MEDS ORDERED: PT OWN MED DRAWER 7, Y5N ONE (21:13)
[2016-12-09] MEDS: ATORVASTATIN CA 10 MG TABLET (FP) PO SCH (21:54)
[2016-12-09] MEDS: EZETIMIBE 10 MG TABLET (FP) PO SCH (21:54)
[2016-12-09] MEDS ORDERED: METOPROLOL SUCCINATE 50 MG TAB.SR.24H (FP) PO SCH (22:00)
[2016-12-10] MEDS ORDERED: INSULIN (NOVOLOG) ASPART 100 UNITS/ML 10ML VIAL ONE (05:46)
[2016-12-10] MEDS: INSULIN SLIDING SCALE (NOVOLOG) 1 VIAL SQ SCH ×4 (06:13→22:12)
[2016-12-10 08:10] LABS: HAPTOGLOBIN 79 mg/dL (34-200); SERUM IRON 54 ug/dL (27-139); TOTAL IRON BINDING CAPACITY 424 ug/dL (250-450); UIBC 370 ug/dL (118-369)
[2016-12-10 08:22] LABS: MCHC 33.2 g/dl (32.0-36.0); MEAN CELL VOLUME 99.5 fl (80-96); MEAN PLT VOLUME 7.1 fl (7.5-11.1); PLATELET COUNT 66 K/MM3 (134-434); RDW 17.8 % (11.6-15.6); WHITE BLOOD COUNT 3.8 K/mm3 (4.0-10.0)
[2016-12-10 08:57] LABS: ALBUMIN 2.7 g/dl (3.4-5.0); ALK PHOS 37 U/L (45-117); ANION GAP 9 (8-16); BILIRUBIN,TOTAL 0.6 mg/dL (0.2-1.0); CALCIUM 7.7 mg/dL (8.5-10.1); CO2 22 mmol/L (21-32); CREATININE 0.9 mg/dL (0.55-1.02); GLUCOSE,RANDOM 146 mg/dL (74-106); LDH 153 U/L (84-246); SGOT/AST 20 U/L (15-37); SGPT/ALT 17 U/L (12-78); TOT PROT 5.2 g/dl (6.4-8.2)
[2016-12-10] MEDS ORDERED: PT OWN MED DRAWER 7, Y5N ONE ×2 (09:06→21:00)
[2016-12-10] MEDS: LIDOCAINE 5% TOPICAL PATCH TP SCH ×2 (09:20→22:13)
[2016-12-10] MEDS: BUDESONIDE/FORMETEROL FUMARATE 160/4.5 mcg INHALER IH SCH (09:20)
[2016-12-10] MEDS: TIOTROPIUM BROMIDE 18 MCG/INH (DEVICE W/ 5 CAPSULES) IH SCH (09:20)
--- NOTE | 2016-12-10 09:56 | EKG ---
Test Reason : Blood Pressure : / mmHG Vent. Rate : 081 BPM Atrial Rate : 081 BPM P-R Int : 138 ms QRS Dur : 148 ms QT Int : 422 ms P-R-T Axes : 072 011 025 degrees QTc Int : 490 ms NORMAL SINUS RHYTHM RIGHT BUNDLE BRANCH BLOCK ABNORMAL ECG NO PREVIOUS ECGS AVAILABLE Confirmed by JIMMY GALVEZ MD ([id number]) on 12/10/2016 9:56:29 AM Referred By: ARIEL ETIENNE Confirmed By:JIMMY GALVEZ MD
[2016-12-10 10:02] LABS: TROPONIN I 0.55 ng/ml (0.00-0.05)
--- NOTE | 2016-12-10 11:51 | CON.CARD ---
Consult Consult Specialty:: Cardiology Referred by:: Hospitalist Medicine Reason for Consultation:: Demand ischemia - History of Present Illness Chief Complaint: Chest pain History of Present Illness: The patient is a 76 year old female with significant past medical history of hypertension, hyperlipidemia, CAD s/p [place], diastolic dysfunction, carotid stenosis s/p CEA, diabetes, and COPD who presented to the ED with with SOB, light-headedness and fatigue. Patient states her SOB is exacerbated with exertion and alleviated while lying supine with rest. She reports chronic left shoulder pain which fluctuates with weather, denies true syncope, chest pain, palpitations, orthopnea, PND or LE edema. Found to have profound anemia, Hgb 6.5 denies melena, hematochezia or abd pain, planned for EGD. Allergies: NKDA Social History: No alcohol, tobacco, or drug use reported. 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 No: Alzheimer's, Seizure, Syncope, TIA Cardio/Vascular: Yes: HTN, Hyperlipdemia, [place] Pulmonary: Yes: COPD. 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), in apartment with 20 steps total to enter (3 into building, 4 to lobby, then 7x2 to apartment), previously Independent in ADLs, ambulated with SC) ADL: Independent History of Recent Travel: No Home Medications - Allergies Allergies/Adverse Reactions: Allergies Allergy/AdvReac Type Severity Reaction Status Date / Time No Known Drug Allergies Allergy Verified 12/08/16 23:20 - Home Medications Home Medications: Ambulatory Orders Aspirin Coated [Ecotrin -] 81 mg PO DAILY 05/03/12 Ezetimibe/Simvastatin [Vytorin 10-20 mg Tablet] 1 each PO HS 05/03/12 Ferrous Gluconate 325 mg PO DAILY 05/03/12 Glyburide 2.5 mg PO BID 05/03/12 Metoprolol Succinate [Toprol XL -] 50 mg PO HS 05/03/12 Pregabalin [Lyrica] 100 mg PO HS 05/03/12 Budesonide/Formeterol Fumarate [SYMBICORT 160/4.5mcg -] 2 inh PO DAILY 12/31/13 Metformin HCl [Glucophage -] 500 mg PO DAILY 12/31/13 Meclizine HCl [Antivert -] 25 mg PO Q6H PRN #0 tablet 01/02/14 Tiotropium [place] [Spiriva] 1 inh PO DAILY #1 01/02/14 Cholecalciferol (Vitamin D3) [Vitamin D3] 1,000 unit PO DAILY 06/18/14 Cyanocobalamin [Vitamin B12 -] 1,000 mcg PO DAILY 06/18/14 Acetaminophen [Tylenol] 650 mg PO Q6H PRN 12/09/16 Lidocaine 5% Patch [Lidoderm Patch -] 1 patch TP ASDIR 12/09/16 Review of Systems - Review of Systems Constitutional: reports: Weakness Cardiovascular: reports: Shortness of Breath Vital Signs: Vital Signs Temperature 98.2 F 12/10/16 08:39 Pulse Rate 82 12/10/16 08:39 Respiratory Rate 18 12/10/16 08:39 Blood Pressure 92/55 12/10/16 08:39 O2 Sat by Pulse Oximetry (%) 96 12/10/16 09:00 Constitutional: Yes: No Distress, Calm Neck: Yes: Supple Respiratory: Yes: Regular, CTA Bilaterally Gastrointestinal: Yes: Normal Bowel Sounds, Soft Cardiovascular: Yes: Regular Rate and Rhythm JVD: No Carotid Bruit: No Heart Sounds: Yes: S1, S2 Edema: No - Other Data Labs, Other Data: CBC, BMP 12/10/16 06:30 12/10/16 06:30 INR, PTT INR 1.42 (0.82-1.09) H 12/09/16 00:50 Troponin, BNP 12/10/16 12/10/16 06:30 08:44 Troponin I 0.55 H Cancelled Troponin, BNP 12/10/16 12/10/16 06:30 08:44 Troponin I 0.[address]@116 RBBB Ejection Fraction %: LVEF > or = 40 % Imaging - Results Chest X-ray: Report Reviewed (Right base ATX) Ultrasound: Report Reviewed (Fatty liver) Problem List - Problems (1) Anemia Code(s): D64.9 - ANEMIA, UNSPECIFIED Qualifiers: Anemia type: other cause (2) SOB (shortness of breath) Code(s): R06.02 - SHORTNESS OF BREATH (3) CAD (coronary artery disease) Code(s): I25.10 - ATHSCL HEART DISEASE OF [place] CORONARY ARTERY W/O ANG PCTRS Qualifiers: Coronary Disease-Associated Artery/Lesion type: [place] artery [place] vs. transplanted heart: [place] heart Associated angina: without angina Qualified Code(s): I25.10 - Atherosclerotic heart disease of [place] coronary artery without angina pectoris (4) COPD (chronic obstructive pulmonary disease) Code(s): J44.9 - CHRONIC OBSTRUCTIVE PULMONARY DISEASE, UNSPECIFIED Qualifiers : COPD type: unspecified COPD Qualified Code(s): J44.9 - Chronic obstructive pulmonary disease, unspecified (5) Diabetes Code(s): E11.9 - TYPE 2 DIABETES MELLITUS WITHOUT COMPLICATIONS Qualifiers: Diabetes mellitus type: type 2 Diabetes mellitus complication status: without complication Diabetes mellitus intermodal dispatcher insulin use: without longterm use Qualified Code(s): E11.9 - Type 2 diabetes mellitus without complications (6) HTN (hypertension) Code(s): I10 - ESSENTIAL (PRIMARY) HYPERTENSION Qualifiers: Hypertension type: essential hypertension Qualified Code(s): I10 - Essential (primary) hypertension (7) Hypercholesterolemia Code(s): E78.0 - PURE HYPERCHOLESTEROLEMIA * DO NOT USE * (8) Demand ischemia Code(s): I24.8 - OTHER FORMS OF ACUTE ISCHEMIC HEART DISEASE (9) Diastolic dysfunction without heart failure Code(s): I51.9 - HEART DISEASE, UNSPECIFIED (10) Sinus tachycardia Code(s): R00.0 - TACHYCARDIA, UNSPECIFIED Assessment/Plan 1. Dyspnea, light-headedness, fatigue referable to profound anemia etiology to be determined 2. CAD, demand ischemia 3. HTN/HCVD 4. Chronic neck and shoulder pain - due to osteoarthritis 5. Aortic valve disease/ 6. COPD 7. NIDDM 8. Hypercholesterolemia 9. Carotid artery disease s/p CEA 10. Vitamin D deficiency 11. Thrombocytopenia 12. WAYNE due to #1 improved 13. Diastolic dysfunction 14. Sinus tachycardia due to #1 PLAN: 1. Continue Metoprolol 50 qd as hemodynamics tolerates. 2. ASA 81 qd with caution, continue Lipitor 10 qd, Zetia 10 qd 3. F/u echo to assess LV and valve fxn, trend trops to document peak 4. BD, O2 as you are, DVT and GI prophylaxis 5. Despite evidence of demand ischemic injury due to profound anemia, benefits of diagnosis of persistent anemia despite transfusion via endoscopic w/u outweighs risk of florin-procedure CV events so would proceed. 6. Check post procedure EKG and trops 7. Thank you for consultative opportunity
--- NOTE | 2016-12-10 14:12 | PN ---
Physical Exam: SUBJECTIVE: Patient seen and examined at bedside. Pt denies chest pain, chest pressure, new pain in arms or jaw. Pt states she feels fine and her SOB is improving. Denies N/V/F/C, palpitations, abd pain. Pt states she has pain in her left shoulder and left side of neck (which she attributes to arthritis) but has had that pain chronically and is unchanged. OBJECTIVE: Vital Signs Temperature 98.2 F 12/10/16 08:39 Pulse Rate 82 12/10/16 08:39 Respiratory Rate 18 12/10/16 08:39 Blood Pressure 92/55 12/10/16 08:39 O2 Sat by Pulse Oximetry (%) 96 12/10/16 09:00 GENERAL: The patient is awake, alert, and fully oriented, in no acute distress. HEAD: Normal with no signs of trauma. EYES: PERRL, extraocular movements intact, sclera anicteric, conjunctiva clear. No ptosis. ENT: Ears normal, nares patent, oropharynx clear without exudates, moist mucous membranes. NECK: Trachea midline, full range of motion, supple. LUNGS: Breath sounds equal, clear to auscultation bilaterally, no wheezes, no crackles, no accessory muscle use. HEART: Regular rate and rhythm, S1, S2 without murmur, rub or gallop. ABDOMEN: Soft, nontender, nondistended, normoactive bowel sounds, no guarding, no rebound, no hepatosplenomegaly, no masses. EXTREMITIES: 2+ pulses, warm, well-perfused, no edema. NEUROLOGICAL: . Normal speech, gait not observed. PSYCH: Normal mood, normal affect. SKIN: Warm, dry, normal turgor, no rashes or lesions noted Laboratory Results - last 24 hr 12/09/16 12/09/16 12/09/16 02:20 04:00 08:15 WBC RBC Hgb Hct MCV MCHC RDW Plt Count MPV Neutrophils % Lymphocytes % Monocytes % Eosinophils % Basophils % Haptoglobin 79 Sodium Potassium Chloride Carbon Dioxide Anion Gap BUN Creatinine Creat Clearance w eGFR POC Glucometer Random Glucose Calcium Iron 54 TIBC 424 Iron Saturation 13 L Total Bilirubin AST ALT Alkaline Phosphatase LD Total Creatine Kinase Troponin I Total Protein Albumin Urine Color Urine Appearance Urine pH Ur Specific [place] Urine Protein Urine Glucose (UA) Urine Ketones Urine Blood Urine Nitrite Urine Bilirubin Urine Urobilinogen Ur Leukocyte Esterase Urine RBC Urine WBC Ur Epithelial Cells Urine Bacteria Ur Random Sodium Ur Random Potassium Ur Random Chloride Urine Creatinine Cold Agglutinins Hepatitis A IgM Ab Negative Hep Bs Antigen Negative Hep B Core IgM Ab Negative Blood Type A POSITIVE Antibody Screen Negative Crossmatch See Detail See Detail 12/09/16 12/09/16 12/09/16 16:35 17:30 17:30 WBC RBC Hgb Hct MCV MCHC RDW Plt Count MPV Neutrophils % Lymphocytes % Monocytes % Eosinophils % Basophils % Haptoglobin Sodium Potassium Chloride Carbon Dioxide Anion Gap BUN Creatinine Creat Clearance w eGFR POC Glucometer 197 Random Glucose Calcium Iron TIBC Iron Saturation Total Bilirubin AST ALT Alkaline Phosphatase LD Total Creatine Kinase Troponin I Total Protein Albumin Urine Color Ltyellow Urine Appearance Clear Urine pH 5.0 Ur Specific [place] 1.016 Urine Protein Negative Urine Glucose (UA) Negative Urine Ketones Negative Urine Blood Negative Urine Nitrite Negative Urine Bilirubin Negative Urine Urobilinogen Negative Ur Leukocyte Esterase Trace H D Urine RBC 1 Urine WBC 1 Ur Epithelial Cells Rare Urine Bacteria Rare Ur Random Sodium 51 Ur Random Potassium 19.4 Ur Random Chloride 53 Urine Creatinine 83.8 Cold Agglutinins Hepatitis A IgM Ab Hep Bs Antigen Hep B Core IgM Ab Blood Type Antibody Screen Crossmatch 12/09/16 12/09/16 12/09/16 17:30 17:30 21:03 WBC 4.4 RBC 2.28 L Hgb 7.5 L Hct 22.7 L MCV 99.8 H MCHC 33.0 RDW 17.4 H Plt Count 77 L MPV 7.4 L D Neutrophils % 62.2 Lymphocytes % 28.8 D Monocytes % 6.1 Eosinophils % 1.8 Basophils % 1.1 Haptoglobin Sodium Potassium Chloride Carbon Dioxide Anion Gap BUN Creatinine Creat Clearance w eGFR POC Glucometer 132 Random Glucose Calcium Iron TIBC Iron Saturation Total Bilirubin AST ALT Alkaline Phosphatase LD Total 166 Creatine Kinase Troponin I Total Protein Albumin Urine Color Urine Appearance Urine pH Ur Specific [place] Urine Protein Urine Glucose (UA) Urine Ketones Urine Blood Urine Nitrite Urine Bilirubin Urine Urobilinogen Ur Leukocyte Esterase Urine RBC Urine WBC Ur Epithelial Cells Urine Bacteria Ur Random Sodium Ur Random Potassium Ur Random Chloride Urine Creatinine Cold Agglutinins Hepatitis A IgM Ab Hep Bs Antigen Hep B Core IgM Ab Blood Type Antibody Screen Crossmatch 12/10/16 12/10/16 12/10/16 06:12 06:30 06:30 WBC RBC Hgb Hct MCV MCHC RDW Plt Count MPV Neutrophils % Lymphocytes % Monocytes % Eosinophils % Basophils % Haptoglobin Sodium 146 H Potassium 4.1 Chloride 115 H Carbon Dioxide 22 Anion Gap 9 BUN 27 H Creatinine 0.9 Creat Clearance w eGFR > 60 POC Glucometer 143 Random Glucose 146 H Calcium 7.7 L Iron TIBC Iron Saturation Total Bilirubin 0.6 D AST 20 ALT 17 Alkaline Phosphatase 37 L LD Total 153 Creatine Kinase 54 Troponin I 0.55 H Total Protein 5.2 L Albumin 2.7 L Urine Color Urine Appearance Urine pH Ur Specific [place] Urine Protein Urine Glucose (UA) Urine Ketones Urine Blood Urine Nitrite Urine Bilirubin Urine Urobilinogen Ur Leukocyte Esterase Urine RBC Urine WBC Ur Epithelial Cells Urine Bacteria Ur Random Sodium Ur Random Potassium Ur Random Chloride Urine Creatinine Cold Agglutinins Negative Hepatitis A IgM Ab Hep Bs Antigen Hep B Core IgM Ab Blood Type Antibody Screen Crossmatch 12/10/16 12/10/16 12/10/16 06:30 08:44 11:06 WBC 3.8 L RBC 2.13 L Hgb 7.0 L Hct 21.2 L MCV 99.5 H MCHC 33.2 RDW 17.8 H Plt Count 66 L MPV 7.1 L Neutrophils % Lymphocytes % Monocytes % Eosinophils % Basophils % Haptoglobin Sodium Potassium Chloride Carbon Dioxide Anion Gap BUN Creatinine Creat Clearance w eGFR POC Glucometer 141 Random Glucose Calcium Iron TIBC Iron Saturation Total Bilirubin AST ALT Alkaline Phosphatase LD Total Creatine Kinase Cancelled Troponin I Cancelled Total Protein Albumin Urine Color Urine Appearance Urine pH Ur Specific [place] Urine Protein Urine Glucose (UA) Urine Ketones Urine Blood Urine Nitrite Urine Bilirubin Urine Urobilinogen Ur Leukocyte Esterase Urine RBC Urine WBC Ur Epithelial Cells Urine Bacteria Ur Random Sodium Ur Random Potassium Ur Random Chloride Urine Creatinine Cold Agglutinins Hepatitis A IgM Ab Hep Bs Antigen Hep B Core IgM Ab Blood Type Antibody Screen Crossmatch Laboratory Tests 12/10/16 12/10/16 12/10/16 06:30 06:30 06:30 Hemoglobin A Hemoglobin A2 Hemoglobin C Hemoglobin S Variant Hemoglobin Hemoglobin Interpret Maternal Rh Hemoglobin Solubility Globulin Pending Albumin/Globulin Ratio Pending Uhvuj-0-Ohmotxoph Pending Udckt-1-Eeanmbbuh (%) Pending Hdsfl-6-Myxuivrhg Pending Ugiyb-3-Iotzyjixs (%) Pending Beta Globulins Pending Beta Globulins (%) Pending Gamma Globulins Pending Gamma Globulins (%) Pending M-Vinay % Pending Folate Folate Hemolysate LINA M-Vinay Pending Serum Cryoglobulins Pending Cold Agglutinins Negative Free [place] LC, Quant Pending Free Lambda LC, Quant Pending Free [place]/Lambda Ratio Pending 12/10/16 06:30 Hemoglobin A Pending Hemoglobin A2 Pending Hemoglobin C Pending Hemoglobin S Pending Variant Hemoglobin Pending Hemoglobin Interpret Pending Maternal Rh Pending Hemoglobin Solubility Pending Globulin Albumin/Globulin Ratio [id number]-7-Vlqkcgrou Rbujb-0-Mbfvmaavp (%) Ixzap-9-Olxkablha Frfwl-5-Gfcwhcftz (%) Beta Globulins Beta Globulins (%) Gamma Globulins Gamma Globulins (%) M-Vinay % Folate Pending Folate Hemolysate Pending LINA M-Vinay Serum Cryoglobulins Cold Agglutinins Free [place] LC, Quant Free Lambda LC, Quant Free [place]/Lambda Ratio Active Medications Generic Name Dose Route Start Last Admin Trade Name Freq PRN Reason Stop Dose Admin Acetaminophen 650 mg 12/09/16 06:34 Tylenol - PO Q6H PRN PAIN Aspirin 81 mg 12/09/16 10:00 12/09/16 12:49 Asa - PO 81 mg DAILY KRIS Administration Atorvastatin Calcium 10 mg 12/09/16 22:00 12/09/16 21:54 Lipitor - PO 10 mg HS KRIS Administration Budesonide/Formoterol Fumarate 2 puff 12/09/16 10:00 12/10/16 09:20 Symbicort 160/4.5mcg - IH 2 inh DAILY KRIS Administration Ezetimibe 10 mg 12/09/16 22:00 12/09/16 21:54 Zetia - PO 10 mg HS KRIS Administration Insulin Aspart 1 vial 12/09/16 07:00 12/10/16 11:07 Novolog Vial Sliding Scale - SQ Not Given ACHS [facility] Protocol Lidocaine 1 patch 12/10/16 09:08 12/10/16 09:20 Lidoderm Patch - TP Not Given DAILY KRIS Metoprolol Succinate 50 mg 12/10/16 12:19 Toprol Xl - PO HS KRIS Tiotropium [place] 1 puff 12/09/16 10:00 12/10/16 09:20 Spiriva - IH 1 puff DAILY KRIS Administration ASSESSMENT/PLAN: 76 y/o F with PMH of HTN, HLD, DMII, and COPD who presented to the ED with progressively worsening SOB over 1 week and found to have macrocytic anemia with a Hgb of 6.5 -Elevated trop -last trop 0.55, will continue to trend and monitor -most likely secondary to demand ischemia from anemia -cardiology on board -SOB secondary to macrocytic anemia -Hgb 7.0 today, will transfuse with 2 more units of PRBC today. f/u CBC after 2nd unit -s/p 2 PRBCs transfused already -f/u iron studies, haptoglobin, fobt -f/u heme workup -ferritin 22, iron, tibc wnl; iron sat 13% -B12, TSH nl -retic 13 -GI consulted -cardiology cleared for egd -Thrombocytopenia -Pt states she has a baseline of platelets in 70s and follows them with Dr. Adorno -heme/onc on board -abd u/s: hepatosplenomegaly with coarse echotexture s/o liver disease vs fatty liver -secondary to liver disease -HIV negative -f/u hep panel -WAYNE -improved -Cr 0.9 -NS @ 50ml/hr -CAD -c/w asa -HTN -c/w toprol xl 50 mg po qd -DMII -c/w ISS, BGMs -COPD -c/w spiriva and symbicort -HLD -c/w zetia 10 mg po qhs -DVT ppx -SCDs -FEN -NS@50ml/hr -Diabetic and sodium controlled diet Problem List - Problems (1) Anemia Code(s): D64.9 - ANEMIA, UNSPECIFIED Qualifiers: Anemia type: other cause (2) SOB (shortness of breath) Code(s): R06.02 - SHORTNESS OF BREATH (3) CAD (coronary artery disease) Code(s): I25.10 - ATHSCL HEART DISEASE OF [place] CORONARY ARTERY W/O ANG PCTRS Qualifiers: Coronary Disease-Associated Artery/Lesion type: [place] artery [place] vs. transplanted heart: [place] heart Associated angina: without angina Qualified Code(s): I25.10 - Atherosclerotic heart disease of [place] coronary artery without angina pectoris (4) COPD (chronic obstructive pulmonary disease) Code(s): J44.9 - CHRONIC OBSTRUCTIVE PULMONARY DISEASE, UNSPECIFIED Qualifiers : COPD type: unspecified COPD Qualified Code(s): J44.9 - Chronic obstructive pulmonary disease, unspecified (5) Diabetes Code(s): E11.9 - TYPE 2 DIABETES MELLITUS WITHOUT COMPLICATIONS Qualifiers: Diabetes mellitus type: type 2 Diabetes mellitus complication status: without complication 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: without [place] [facility] use Qualified Code(s): E11.9 - Type 2 diabetes mellitus without complications (6) HTN (hypertension) Code(s): I10 - ESSENTIAL (PRIMARY) HYPERTENSION Qualifiers: Hypertension type: essential hypertension Qualified Code(s): I10 - Essential (primary) hypertension (7) Hypercholesterolemia Code(s): E78.0 - PURE HYPERCHOLESTEROLEMIA * DO NOT USE * Visit type - Emergency Visit Emergency Visit: Yes ED Registration Date: 12/09/16 Care time: The patient presented to the Emergency Department on the above date and was hospitalized for further evaluation of their emergent condition. - New Patient This patient is new to me today: No - Critical Care Critical Care patient: No
--- NOTE | 2016-12-10 14:39 | PN ---
Progress Note (short form) - Note Progress Note: MEDICAL ATTENDING SUBJECTIVELY IMPROVED POST 2 UNITS PRBC'S HGB 6.5 TO 7 GMS POST TRANSFUSIONS MEGALOBLASTIC INDICES AND LOW PLATELETS WORK UP UNDERWAY AWAITING STOOL GUIAC/GI CONSULT HAVE ORDERED CT CHEST/ABD NO CONTRAST TUMOR MARKERS PENDING Sami LEE MD
--- NOTE | 2016-12-10 15:09 | PN ---
Teaching Attending Note Name of Resident: Mc Colon ATTENDING PHYSICIAN STATEMENT I saw and evaluated the patient. I reviewed the resident's note and discussed the case with the resident. I agree with the resident's findings and plan as documented. SUBJECTIVE:remains asymptomatic. states SOB has resolved but has not exerted herself much since arrival. denies CP, SOB,fever, chills, N/V/C/D, melena or BRBPR OBJECTIVE: Last Vital Signs Temp Pulse Resp BP Pulse Ox 98.2 F 82 18 92/55 96 12/10/16 08:39 12/10/16 08:39 12/10/16 08:39 12/10/16 08:39 12/10/16 09:00 General NAD, CV S1 S2 RRR +systolic murmur Lungs CTA B/L no wheezing/rales/rhonchi Abdomen soft NT/ND no rebound or guarding ASSESSMENT AND PLAN: 76yo F wtih PMH HTN, dyslipidemia, DM, and COPD presented to the ER and was admitted for further evaluation of their emergent condition 1. Acute macrocytic anemia- +JOSESITO s/p 2 units PRBC without appropriate response. NPO for EGD today. full workup sent by hematology. will need to consider mycoplasma as well in setting of +josesito. current medications not assoc. check post transfusion hgb. 2. Elevated troponin-possible demand ischemia from anemia. slight uptrend in troponin. repeat EKG obtained with ST changes (NSR with RBBB). check echo, trend troponins. as per pt has negative stress test a few years ago and had echo several months ago. will consult cardiology. 2. Thrombocytopenia- continues to slightly trend down. has workup in the past. has refused liver bx, only consentable if able to give anesthesia for bx. 3. WAYNE- dehydration.resolved. d/c IVF 4. HTN- controlled 5. DM- controlled. hold oral agents. iss, Bgm 6. COPD- no sign of acute exacerbation. cont inhalers 7. DVT ppx- EAM
--- NOTE | 2016-12-10 16:20 | HOSP ---
Subjective - Review of Symptoms Subjective: spoke with Dr Reed and requests to resume care of this patient at this time. Physical Examination Vital Signs: Vital Signs Temperature 98 F 12/10/16 14:00 Pulse Rate 90 12/10/16 14:00 Respiratory Rate 20 12/10/16 14:00 Blood Pressure 113/53 12/10/16 14:00 O2 Sat by Pulse Oximetry (%) 96 12/10/16 09:00 Labs: CBC, BMP 12/10/16 06:30 12/10/16 06:30
--- NOTE | 2016-12-10 17:32 | CON.GI ---
Consult Consult Specialty:: GASTROENTEROLOGY Reason for Consultation:: ANEMIA/THROMBOCYTOPENIA - History of Present Illness Chief Complaint: SOB History of Present Illness: 76 YEAR OLD FEMALE PATIENT THAT I HAVE NOT SEEN SINCE 2013. IN 2013 SHE HAD A COLONOSCOPY THAT REVEALED DIVERTICULOSIS, BENIGN POLYPS AND HEMORRHOIDS. SHE HAS HAD HEPATOSPLENOMEGALY AT THAT TIME AND HER PLATELET COUNT WAS 79 BUT SHE HAD NO ANEMIA. A CT SCAN REVEALED HSM AND THERE WAS A COUPLE OF GRANULOMA IN HER LIVER. AT THAT TIME I SUGGESTED A LIVER BIOPSY AND BONE MARROW BIOPSY BUT SHE REFUSED. SHE HAS BEEN IN HER USOH WHEN SHE DEVELOPED SOB WITH MINIMAL EXERTION AND CAME TO THE ER. IT WAS NOTED THAT SHE HAD A HGB OF 7 AND PLATELET COUNT OF 66! SHE HAS MACROCYTIC INDICES WITH A NORMAL B12. SHE HAS NOT HAD ANY ALCOHOL IN YEARS. ACUTRE AND CHRONIC HEPATITIS WORKUP UP IN 2013 WAS NEGATIVE. SHE DENIES ABDOMINAL PAIN MELENA OR RECTAL BLEEDING. 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 No: Alzheimer's, Seizure, Syncope, TIA Cardio/Vascular: Yes: HTN, Hyperlipdemia, [place] Pulmonary: Yes: COPD. No: O2 Dependent Gastrointestinal: Yes: Diverticulosis, Hemorrhoids Hepatobiliary: Yes: Other (HSM) ...: No Heme/Onc: Yes: Thrombocytopenia Infectious Disease: No: AIDS, C-Diff, Herpes Zoster, HIV, MRSA, STD's, Tuberculosis, VREF, Other Psych: No: Addictions, Anxiety, Bipolar, Depression, Panic, Psychosis, Schizophrenia, Other Musculoskeletal: Yes: Osteoarthritis. No: Bursitis, Chronic low back pain, Hemiparesis, Hemiplegia, Paraplegia, Other Rheumatology: No: Fibromyalgia, Gout, Lupus, Rheumatoid Arthritis, Sarcoidosis, Vasculitis, Other ENT: No: Allergic Rhinitis, Sinusitis, Other Endocrine: Yes: Diabetes Mellitus - Past Surgical History Past Surgical History: Yes: Colonoscopy - Alcohol/Substance Use Hx Alcohol Use: No History of Substance Use: reports: None - Smoking History Smoking history: Never smoked Have you smoked in the past 12 months: No If you are a former smoker, when did you quit?: 2010 - Social History Usual Living Arrangement: With Spouse (lives with who is disabled (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), in apartment with 20 steps total to enter (3 into building, 4 to lobby, then 7x2 to apartment), previously Independent in ADLs, ambulated with [place]) ADL: Independent History of Recent Travel: No Home Medications - Allergies Allergies/Adverse Reactions: Allergies Allergy/AdvReac Type Severity Reaction Status Date / Time No Known Drug Allergies Allergy Verified 12/08/16 23:20 - Home Medications Home Medications: Ambulatory Orders Aspirin Coated [Ecotrin -] 81 mg PO DAILY 05/03/12 Ezetimibe/Simvastatin [Vytorin 10-20 mg Tablet] 1 each PO HS 05/03/12 Ferrous Gluconate 325 mg PO DAILY 05/03/12 Glyburide 2.5 mg PO BID 05/03/12 Metoprolol Succinate [Toprol XL -] 50 mg PO HS 05/03/12 Pregabalin [Lyrica] 100 mg PO HS 05/03/12 Budesonide/Formeterol Fumarate [SYMBICORT 160/4.5mcg -] 2 inh PO DAILY 12/31/13 Metformin HCl [Glucophage -] 500 mg PO DAILY 12/31/13 Meclizine HCl [Antivert -] 25 mg PO Q6H PRN #0 tablet 01/02/14 Tiotropium [place] [Spiriva] 1 inh PO DAILY #1 01/02/14 Cholecalciferol (Vitamin D3) [Vitamin D3] 1,000 unit PO DAILY 06/18/14 Cyanocobalamin [Vitamin B12 -] 1,000 mcg PO DAILY 06/18/14 Acetaminophen [Tylenol] 650 mg PO Q6H PRN 12/09/16 Lidocaine 5% Patch [Lidoderm Patch -] 1 patch TP ASDIR 12/09/16 Family Disease History - Family Disease History Family History: Unremarkable Review of Systems - Review of Systems Constitutional: reports: Weakness Eyes: reports: No Symptoms HENT: reports: No Symptoms Neck: reports: No Symptoms Cardiovascular: reports: Shortness of Breath Respiratory: reports: SOB on Exertion Gastrointestinal: reports: Constipation Genitourinary: reports: No Symptoms Musculoskeletal: reports: No Symptoms Integumentary: reports: No Symptoms Neurological: reports: Dizziness Endocrine: reports: No Symptoms Hematology/Lymphatic: reports: No Symptoms Psychiatric: reports: No Symptoms Physical Exam-GI Vital Signs: Vital Signs Temperature 98 F 12/10/16 14:00 Pulse Rate 90 12/10/16 14:00 Respiratory Rate 20 12/10/16 14:00 Blood Pressure 113/53 12/10/16 14:00 O2 Sat by Pulse Oximetry (%) 96 12/10/16 09:00 Constitutional: Yes: Obese Eyes: Yes: Conjunctiva Clear HENT: Yes: Normocephalic Neck: Yes: Supple Cardiovascular: Yes: Regular Rate and Rhythm, Murmur Respiratory: Yes: WNL Gastrointestinal Inspection: Yes: WNL ...Auscultate: Yes: Normoactive Bowel Sounds ...Palpate: Yes: Hepatomegaly, Soft Musculoskeletal: Yes: WNL Extremities: Yes: WNL Integumentary: Yes: WNL Psychiatric: Yes: Alert, Oriented Labs: CBC, BMP 12/10/16 06:30 12/10/16 06:30 INR, PTT INR 1.42 (0.82-1.09) H 12/09/16 00:50 Laboratory Tests 12/09/16 12/09/16 12/09/16 00:50 04:00 06:00 WBC 4.3 RBC 2.13 L Hgb 7.1 L Hct 21.6 L MCV 101.4 H MCHC 32.7 RDW 18.3 H Plt Count 78 L MPV 6.7 L Neutrophils % 67.3 Lymphocytes % 21.5 D Monocytes % 9.2 Eosinophils % 1.4 D Basophils % 0.6 INR 1.42 H Prot Electrophoresis Serum Total Protein Albumin Globulin Albumin/Globulin Ratio Zkeee-5-Xhynywpdc Urine Blood Urine Total Protein Urine PEP Interpret LINA M-Vinay Serum Cryoglobulins Cold Agglutinins Free [place] LC, Quant Free Lambda LC, Quant Free [place]/Lambda Ratio Hepatitis A IgM Ab Negative Hep Bs Antigen Negative Hep B Core IgM Ab Negative Hepatitis C Antibody Pending HIV 1&2 Antibody Screen HIV P24 Antigen M.pneumoniae IgM Titer 12/09/16 12/09/16 12/10/16 08:40 17:30 06:30 WBC RBC Hgb Hct MCV MCHC RDW Plt Count MPV Neutrophils % Lymphocytes % Monocytes % Eosinophils % Basophils % INR Prot Electrophoresis Serum Total Protein Albumin Globulin Albumin/Globulin Ratio Nxtrl-5-Sklqjkzig Urine Blood Negative Urine Total Protein Urine PEP Interpret LINA M-Vinay Serum Cryoglobulins Pending Cold Agglutinins Free [place] LC, Quant Free Lambda LC, Quant Free [place]/Lambda Ratio Hepatitis A IgM Ab Hep Bs Antigen Hep B Core IgM Ab Hepatitis C Antibody HIV 1&2 Antibody Screen Negative HIV P24 Antigen Negative M.pneumoniae IgM Titer 12/10/16 12/10/16 12/10/16 06:30 06:30 06:30 WBC 3.8 L RBC 2.13 L Hgb 7.0 L Hct 21.2 L MCV 99.5 H MCHC 33.2 RDW 17.8 H Plt Count 66 L MPV 7.1 L Neutrophils % Lymphocytes % Monocytes % Eosinophils % Basophils % INR Prot Electrophoresis Pending Serum Total Protein Pending Albumin Pending Globulin Pending Albumin/Globulin Ratio Pending Lveck-1-Sknkjmbjc Pending Urine Blood Urine Total Protein Pending Urine PEP Interpret Pending LINA M-Vinay Pending Serum Cryoglobulins Cold Agglutinins Negative Free [place] LC, Quant Pending Free Lambda LC, Quant Pending Free [place]/Lambda Ratio Pending Hepatitis A IgM Ab Hep Bs Antigen Hep B Core IgM Ab Hepatitis C Antibody HIV 1&2 Antibody Screen HIV P24 Antigen M.pneumoniae IgM Titer 12/10/16 11:55 WBC RBC Hgb Hct MCV MCHC RDW Plt Count MPV Neutrophils % Lymphocytes % Monocytes % Eosinophils % Basophils % INR Prot Electrophoresis Serum Total Protein Albumin Globulin Albumin/Globulin Ratio Rgppt-2-Jprcktvta Urine Blood Urine Total Protein Urine PEP Interpret LINA M-Vinay Serum Cryoglobulins Cold Agglutinins Free [place] LC, Quant Free Lambda LC, Quant Free [place]/Lambda Ratio Hepatitis A IgM Ab Hep Bs Antigen Hep B Core IgM Ab Hepatitis C Antibody HIV 1&2 Antibody Screen HIV P24 Antigen M.pneumoniae IgM Titer Pending Imaging - Results Ultrasound: Image Reviewed Problem List - Problems (1) Anemia Assessment/Plan: WILL PLACE PATIENT ON SCHEDULE FOR EGD AND COLONOSCOPY ON TUESDAY. I WILL ASK HEMATOLOGY TO HELP BRING PLATELETS UP TO EQUAL OR EXCEED 90 FOR THE EXAMS. I STILL BELIEVE THAT SHE NEEDS A BONE MARROW EXAM I CAN NOT EXPLAIN HER ANEMIA OR SPLENOMEGALY. AGREE WITH BLOOD TRANSFUSIONS. I HAVE STARTED TO FEED THE PATIWNT BUT WILL SEE HER OVER WEEKEND TO START HER ON A PREP FOR TUESDAY. Code(s): D64.9 - ANEMIA, UNSPECIFIED Qualifiers: Anemia type: other cause (2) Thrombocytopenia Code(s): D69.6 - THROMBOCYTOPENIA, UNSPECIFIED (3) Hepatosplenomegaly Code(s): R16.2 - HEPATOMEGALY WITH SPLENOMEGALY, NOT ELSEWHERE CLASSIFIED (4) Demand ischemia Code(s): I24.8 - OTHER FORMS OF ACUTE ISCHEMIC HEART DISEASE (5) Diastolic dysfunction without heart failure Code(s): I51.9 - HEART DISEASE, UNSPECIFIED (6) CAD (coronary artery disease) Code(s): I25.10 - ATHSCL HEART DISEASE OF [place] CORONARY ARTERY W/O ANG PCTRS Qualifiers: Coronary Disease-Associated Artery/Lesion type: [place] artery [place] vs. transplanted heart: [place] heart Associated angina: without angina Qualified Code(s): I25.10 - Atherosclerotic heart disease of [place] coronary artery without angina pectoris (7) COPD (chronic obstructive pulmonary disease) Code(s): J44.9 - CHRONIC OBSTRUCTIVE PULMONARY DISEASE, UNSPECIFIED Qualifiers : COPD type: unspecified COPD Qualified Code(s): J44.9 - Chronic obstructive pulmonary disease, unspecified (8) Diabetes Code(s): E11.9 - TYPE 2 DIABETES MELLITUS WITHOUT COMPLICATIONS Qualifiers: Diabetes mellitus type: type 2 Diabetes mellitus complication status: without complication Diabetes mellitus usp insulin use: 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
--- NOTE | 2016-12-10 18:12 | PN ---
Progress Note (short form) - Note Progress Note: Patient seen and examined Feels better Last Vital Signs Temp Pulse Resp BP Pulse Ox 98 F 90 20 113/53 96 12/10/16 14:00 12/10/16 14:00 12/10/16 14:00 12/10/16 14:00 12/10/16 09:00 HEENT: ALLEN, EOM Intact Oropharynx: No thrush, No mucositis Neck: Supple Nodes: Without adenopathy Breasts: Without masses Cor: RSR, No murmurs, No gallops Lungs: Clear to P&A Abd: Soft, Normal bowel sounds, No organomegaly Ext:No significant edema Skin: No rashes, Integument intact Abnormal Lab Results 12/09/16 12/09/16 12/09/16 02:20 04:00 08:15 WBC RBC Hgb Hct MCV RDW Plt Count MPV Sodium Chloride BUN Random Glucose Calcium Iron Saturation 13 L Alkaline Phosphatase Troponin I Total Protein Albumin Crossmatch See Detail See Detail 12/10/16 12/10/16 06:30 06:30 WBC 3.8 L RBC 2.13 L Hgb 7.0 L Hct 21.2 L MCV 99.5 H RDW 17.8 H Plt Count 66 L MPV 7.1 L Sodium 146 H Chloride 115 H BUN 27 H Random Glucose 146 H Calcium 7.7 L Iron Saturation Alkaline Phosphatase 37 L Troponin I 0.55 H Total Protein 5.2 L Albumin 2.7 L Crossmatch Current Medications Acetaminophen (Tylenol -) 650 mg PO Q6H PRN PRN Reason: PAIN Aspirin (Asa -) 81 mg PO DAILY [facility] Last Admin: 12/09/16 12:49 Dose: 81 mg Atorvastatin Calcium (Lipitor -) 10 mg PO HS [facility] Last Admin: 12/09/16 21:54 Dose: 10 mg Budesonide/Formoterol Fumarate (Symbicort 160/4.5mcg -) 2 puff IH DAILY [facility] Last Admin: 12/10/16 09:20 Dose: 2 inh Ezetimibe (Zetia -) 10 mg PO HS [facility] Last Admin: 12/09/16 21:54 Dose: 10 mg Insulin Aspart (Novolog Vial Sliding Scale -) 1 vial SQ ACHS [facility] PRN Reason: Protocol Last Admin: 12/10/16 16:28 Dose: Not Given Lidocaine (Lidoderm Patch -) 1 patch TP DAILY [facility] Last Admin: 12/10/16 09:20 Dose: Not Given Metoprolol Succinate (Toprol Xl -) 50 mg PO HS [facility] Tiotropium [place] (Spiriva -) 1 puff IH DAILY [facility] Last Admin: 12/10/16 09:20 Dose: 1 puff A/P 6 y/o patient with HTN, DM. COPD, comes in with symptomatic anemia Macrocytic anemia-- chronic macrocytosis/new onset anemia acute onset ---nl hemoglobin 09/29 nl B12/TSH Liver U/S -- hepatosplenomegaly with coarse echotexture s/o liver disease vs fatty liver stool occult + ferritin --22 await iron saturation LDH--nlhaptoglobin pending. Edilia 1+ IgG/C3 neg. LDH nl hence brisk hemolysis unlikely Poor response to blood transfusion due to splenic sequestration? Reticulocyte production index > 3% suggestive of adequate marrow response to severe anemia Suspect liver disease/ and acute onset suggestive of gi bleed MDS in the differential but less likely Would get GI consult Thrombocytopenia -- chronic since 2010 ?--suspect liver disease MDS/ITP is in the differential but less likely GI consult appreciated For EGD/colonoscopy on Tuesday suspect liver disease and splenic sequestration . Poor response to transfusion due to splenic sequestration Will transfuse platelets prior to procedures on Tuesday but unsure if she will respond due to splenic sequestration
--- NOTE | 2016-12-10 19:53 | CONSULT ---
Consult - text type - Consultation Consultation Note: NEUROLOGY CONSULTATION is greatly appreciated: This 76 yo RH woman lives with her (disabled from Right arm fracture.) PMH sig for HTN, Chol, Diabetes (x 10 years) and COPD. On symbicort, spiriva, toprol, zetia, lipitor, insulin and meclizine at home. Now admitted after 1 week of worsening dyspnea and 3 days of weakness, lightheadedness, and tachycardia. Found to have profound macrocytic anemia. Much improved after 3 units pRBC's. Chronic dizziness for which she has been evaluated by Dr. Iglesias. Told "not vertigo." However, the patient does describe episodic spinning sometimes associated with head movements. Can occur turning in bed. Can feel like a "washing machine in her head." Few weeks of whooshing tinnitus, now improved. Meclizine +/- benefit. No hearing loss. ROS: Chronic R Ptosis (Dr. Felipe); s/p B/L Carpal tunnel repair; Chronic gait difficulty requiring cane. LION: No bruits. No head trauma, Cor Reg. Barrel chest. Reduced neck ROM. NEURO: MS/speech: Normal CN: R ptosis without fatigue. Full EOM's without Nystagmus. No facial. Hearing OK. Gag OK. Motor: No drift or tremor. Min cogwheeling. CHANTELL's OK. Absent AJ's. Toes downgoing Coord: No FTN dystaxia Sensory: Decreased vibration both feet. Romberg +/- Gait: Wide-based, shuffling, shortened strides. IMP: 1. Diabetic peripheral neuropathy. 2. Chronic ataxia. Exam suggests [employer] microvascular disease or midline cerebellar degeneration. 3. Chronic R ptosis, etiology uncertain. No fatigue to suggest Myasthenia gravis. Did prior w/u include [place]? 4. Chronic dizziness with features of labyrinthitis. R/o vertebrobasilar insufficiency. SUGGEST: Review prior neuroimaging, Ophthalmology and ENT evals. Repeat B12 with homocysteine and methylmalonic acid levels Consider MRI of cervical spine to r/o myelopathy Out patient EMG/NCS for neuropathy. PT for gait with walker. Thank you very much, Pete Stover MD
[2016-12-10 20:48] LABS: BASOPHIL 0.8 % (0-2.0); EOSINOPHIL 2.3 % (0-4.5); MCH 31.8 pg (25.7-33.7); MCHC 32.5 g/dl (32.0-36.0); MEAN CELL VOLUME 97.8 fl (80-96); MEAN PLT VOLUME 7.6 fl (7.5-11.1); NEUTROPHILS 66.3 % (42.8-82.8); PLATELET COUNT 74 K/MM3 (134-434); RDW 18.8 % (11.6-15.6); WHITE BLOOD COUNT 4.8 K/mm3 (4.0-10.0)
[2016-12-10] MEDS: ATORVASTATIN CA 10 MG TABLET (FP) PO SCH (22:11)
[2016-12-10] MEDS: METOPROLOL SUCCINATE 50 MG TAB.SR.24H (FP) PO SCH (22:11)
[2016-12-10] MEDS: EZETIMIBE 10 MG TABLET (FP) PO SCH (22:11)
[2016-12-11] MEDS: INSULIN SLIDING SCALE (NOVOLOG) 1 VIAL SQ SCH ×4 (06:34→21:40)
[2016-12-11 08:12] LABS: MCH 32.5 pg (25.7-33.7); MCHC 33.1 g/dl (32.0-36.0); MEAN CELL VOLUME 98.2 fl (80-96); MEAN PLT VOLUME 7.1 fl (7.5-11.1); PLATELET COUNT 63 K/MM3 (134-434); RDW 19.4 % (11.6-15.6); WHITE BLOOD COUNT 3.5 K/mm3 (4.0-10.0)
[2016-12-11 08:29] LABS: INR 1.45 (0.82-1.09); PROTHROMBIN TIME (PATIENT) 16.1 SEC (9.98-11.88)
[2016-12-11 08:58] LABS: CALCIUM 7.8 mg/dL (8.5-10.1)
[2016-12-11 09:00] LABS: CREATININE 0.9 mg/dL (0.55-1.02)
[2016-12-11] MEDS: LIDOCAINE 5% TOPICAL PATCH TP SCH ×2 (11:18→21:35)
--- NOTE | 2016-12-11 11:18 | PN ---
Progress Note (short form) - Note Progress Note: MEDICAL ATTENDING APPEARS STABLE HGB 6.5 TO 7.2 GMS POST 3 UNITS TRANSFUSED MACROCYTIC INDICES AND LOW PLATELETS WORK UP UNDERWAY STOOL GUIAC POSITIVE ECHO NOTED WILL HAVE EGD/COLONOSCOPY TUESDAY TUMOR MARKERS PENDING Sami LEE MD
[2016-12-11] MEDS ORDERED: INSULIN (NOVOLOG) ASPART 100 UNITS/ML 10ML VIAL ONE ×2 (11:19→17:37)
[2016-12-11] MEDS ORDERED: PT OWN MED DRAWER 7, Y5N ONE ×2 (11:20→20:55)
[2016-12-11] MEDS: TIOTROPIUM BROMIDE 18 MCG/INH (DEVICE W/ 5 CAPSULES) IH SCH (11:24)
[2016-12-11] MEDS: BUDESONIDE/FORMETEROL FUMARATE 160/4.5 mcg INHALER IH SCH (11:24)
--- NOTE | 2016-12-11 12:42 | PN ---
GI Progress Note Subjective: GASTROENTEROLOGY HGB STILL 7.0 DESPITE TRANSFUSIONS, HAD BM YESTERDAY WITH SMALL AMOUNT BLOOD ON STOOL THAT DID NOT TURN TOILET WATER RED OR PINK. SCHEDULE FOR EGD AND COLONOSCOPY TUESDAY AM - Objective Vital Signs: Vital Signs Temperature 97.8 F 12/11/16 06:00 Pulse Rate 85 12/11/16 06:00 Respiratory Rate 24 12/11/16 06:00 Blood Pressure 99/51 12/11/16 06:00 O2 Sat by Pulse Oximetry (%) 96 12/10/16 21:00 Constitutional: No Distress Eyes: Yes: Conjunctiva Clear HENT: Yes: Normocephalic Neck: Yes: Supple Cardiovascular: Yes: Regular Rate and Rhythm Respiratory: Yes: Regular Gastrointestinal Inspection: Yes: WNL ...Auscultate: Yes: Normoactive Bowel Sounds ...Palpate: Yes: Soft Extremities: Yes: WNL Labs: CBC, BMP 12/11/16 07:30 12/11/16 07:30 INR, PTT INR 1.45 (0.82-1.09) H 12/11/16 07:30 Fibrinogen 201.0 mg/dL (238-498) L 12/11/16 07:30 Laboratory Tests 12/09/16 12/09/16 12/10/16 00:50 17:30 06:30 WBC RBC Hgb Hct MCV MCHC RDW Plt Count MPV INR 1.42 H Sodium Potassium Chloride Carbon Dioxide Anion Gap BUN Creatinine POC Glucometer Random Glucose Calcium Troponin I Urine Blood Negative Stool Occult Blood LINA M-Vinay Serum Cryoglobulins Pending Cold Agglutinins Free [place] LC, Quant Free Lambda LC, Quant Free [place]/Lambda Ratio 12/10/16 12/10/16 12/10/16 06:30 06:30 20:15 WBC 4.8 RBC 2.48 L Hgb 7.9 L D Hct 24.3 L MCV 97.8 H MCHC 32.5 RDW 18.8 H Plt Count 74 L MPV INR Sodium Potassium Chloride Carbon Dioxide Anion Gap BUN Creatinine POC Glucometer Random Glucose Calcium Troponin I Urine Blood Stool Occult Blood LINA M-Vinay Pending Serum Cryoglobulins Cold Agglutinins Negative Free [place] LC, Quant Pending Free Lambda LC, Quant Pending Free [place]/Lambda Ratio Pending 12/10/16 12/11/16 12/11/16 21:00 01:00 06:33 WBC RBC Hgb Hct MCV MCHC RDW Plt Count MPV INR Sodium Potassium Chloride Carbon Dioxide Anion Gap BUN Creatinine POC Glucometer 148 Random Glucose Calcium Troponin I 0.34 H Urine Blood Stool Occult Blood Positive LINA M-Vinay Serum Cryoglobulins Cold Agglutinins Free [place] LC, Quant Free Lambda LC, Quant Free [place]/Lambda Ratio 12/11/16 12/11/16 12/11/16 07:30 07:30 07:30 WBC 3.5 L RBC 2.22 L Hgb 7.2 L Hct 21.7 L MCV 98.2 H MCHC 33.1 RDW 19.4 H Plt Count 63 L MPV 7.1 L INR 1.45 H Sodium 145 Potassium 3.8 Chloride 112 H Carbon Dioxide 23 Anion Gap 10 BUN 24 H Creatinine 0.9 POC Glucometer Random Glucose 150 H Calcium 7.8 L Troponin I Urine Blood Stool Occult Blood LINA M-Vinay Serum Cryoglobulins Cold Agglutinins Free [place] LC, Quant Free Lambda LC, Quant Free [place]/Lambda Ratio 12/11/16 12/11/16 07:30 11:27 WBC RBC Hgb Hct MCV MCHC RDW Plt Count MPV INR Sodium Potassium Chloride Carbon Dioxide Anion Gap BUN Creatinine POC Glucometer 130 Random Glucose Calcium Troponin I 0.24 H Urine Blood Stool Occult Blood LINA M-Vinay Serum Cryoglobulins Cold Agglutinins Free [place] LC, Quant Free Lambda LC, Quant Free [place]/Lambda Ratio Problem List - Problems (1) Anemia Assessment/Plan: WILL PLACE PATIENT ON SCHEDULE FOR EGD AND COLONOSCOPY ON TUESDAY. SPOKE WITH HEMATOLOGY ABOUT HELPING US IMPROVE PLT COUNT DURING PROCEDURES. I STILL BELIEVE THAT SHE NEEDS A BONE MARROW EXAM I CAN NOT EXPLAIN HER ANEMIA OR SPLENOMEGALY. SHE HAS REFUSED A RECTAL EXAM TODAY BUT SHE DESCRIBES THE RECTAL BLEEDING MINIMAL; AND BLOOD ON STOOL. THERE WAS NO RED OR PINK TOILET WATER. CLEAR LIQUID DIET TOMORROW, BOWEL PREP TUESDAY, EGD/COLONOSCOPY ABOUT 11:00 AM TUESDAY Code(s): D64.9 - ANEMIA, UNSPECIFIED Qualifiers: Anemia type: other cause (2) Thrombocytopenia Code(s): D69.6 - THROMBOCYTOPENIA, UNSPECIFIED (3) Hepatosplenomegaly Code(s): R16.2 - HEPATOMEGALY WITH SPLENOMEGALY, NOT ELSEWHERE CLASSIFIED (4) Demand ischemia Code(s): I24.8 - OTHER FORMS OF ACUTE ISCHEMIC HEART DISEASE (5) Diastolic dysfunction without heart failure Code(s): I51.9 - HEART DISEASE, UNSPECIFIED (6) CAD (coronary artery disease) Code(s): I25.10 - ATHSCL HEART DISEASE OF [place] CORONARY ARTERY W/O ANG PCTRS Qualifiers: Coronary Disease-Associated Artery/Lesion type: [place] artery [place] vs. transplanted heart: [place] heart Associated angina: without angina Qualified Code(s): I25.10 - Atherosclerotic heart disease of [place] coronary artery without angina pectoris (7) COPD (chronic obstructive pulmonary disease) Code(s): J44.9 - CHRONIC OBSTRUCTIVE PULMONARY DISEASE, UNSPECIFIED Qualifiers : COPD type: unspecified COPD Qualified Code(s): J44.9 - Chronic obstructive pulmonary disease, unspecified (8) Diabetes Code(s): E11.9 - TYPE 2 DIABETES MELLITUS WITHOUT COMPLICATIONS Qualifiers: Diabetes mellitus type: type 2 Diabetes mellitus complication status: without complication Diabetes mellitus intermediate manager insulin use: without intermediate manager use Qualified Code(s): E11.9 - Type 2 diabetes mellitus without complications (9) Dizziness Code(s): R42 - DIZZINESS AND GIDDINESS (10) HTN (hypertension) Code(s): I10 - ESSENTIAL (PRIMARY) HYPERTENSION Qualifiers: Hypertension type: essential hypertension Qualified Code(s): I10 - Essential (primary) hypertension (11) Hypercholesterolemia Code(s): E78.0 - PURE HYPERCHOLESTEROLEMIA * DO NOT USE * (12) Vertigo Code(s): R42 - DIZZINESS AND GIDDINESS
[2016-12-11] MEDS ORDERED: PHYTONADIONE 5 MG TABLET PO ONE ×2 (12:45→13:15)
--- NOTE | 2016-12-11 13:03 | PN ---
Progress Note (short form) - Note Progress Note: Patient seen and examined She reports of blood in stools Planning for an EGD/ Colonoscopy on Tuesday Vital Signs Period Temp Pulse Resp BP Sys/Rider Pulse Ox Last 24 Hr 97.2 F-98.1 F 85-92 20-24 99-115/49-59 96 HEENT: ALLEN, EOM Intact Oropharynx: No thrush, No mucositis Neck: Supple Nodes: Without adenopathy Breasts: Without masses Cor: RSR, No murmurs, No gallops Lungs: Clear to P&A Abd: Soft, Normal bowel sounds, No organomegaly Ext:No significant edema Skin: No rashes, Integument intact Active Medications Generic Name Dose Route Start Last Admin Trade Name Freq PRN Reason Stop Dose Admin Acetaminophen 650 mg 12/09/16 06:34 Tylenol - PO Q6H PRN PAIN Aspirin 81 mg 12/09/16 10:00 12/09/16 12:49 Asa - PO 81 mg DAILY [facility] Administration Atorvastatin Calcium 10 mg 12/09/16 22:00 12/10/16 22:11 Lipitor - PO 10 mg HS [facility] Administration Bisacodyl 20 mg 12/12/16 19:00 Dulcolax - PO 12/12/16 19:01 ONCE ONE Budesonide/Formoterol Fumarate 2 puff 12/09/16 10:00 12/11/16 11:24 Symbicort 160/4.5mcg - IH 2 inh DAILY [facility] Administration Ezetimibe 10 mg 12/09/16 22:00 12/10/16 22:11 Zetia - PO 10 mg HS [facility] Administration Insulin Aspart 1 vial 12/09/16 07:00 12/11/16 11:31 Novolog Vial Sliding Scale - SQ Not Given ACHS [facility] Protocol Lidocaine 1 patch 12/10/16 09:08 12/11/16 11:18 Lidoderm Patch - TP Not Given DAILY [facility] Metoprolol Succinate 50 mg 12/10/16 12:19 12/10/16 22:11 Toprol Xl - PO 50 mg HS [facility] Administration Polyethylene Glycol 255 gm 12/12/16 13:00 Miralax (For Bowel Prep) - PO 12/12/16 13:01 ONCE ONE Tiotropium [place] 1 puff 12/09/16 10:00 12/11/16 11:24 Spiriva - IH 1 puff DAILY [facility] Administration CBC, BMP 12/11/16 07:30 12/11/16 07:30 A/P 6 y/o patient with HTN, DM. COPD, comes in with symptomatic anemia Macrocytic anemia-- chronic macrocytosis/new onset anemia acute onset ---nl hemoglobin 09/29 nl B12/TSH Liver U/S -- hepatosplenomegaly with coarse echotexture s/o liver disease vs fatty liver stool occult + ferritin --22 await iron saturation LDH--nlhaptoglobin pending. Edilia 1+ IgG/C3 neg. LDH nl hence brisk hemolysis unlikely Poor response to blood transfusion due to splenic sequestration? Reticulocyte production index > 3% suggestive of adequate marrow response to severe anemia Suspect acute onset suggestive of gi bleed MDS in the differential but less likely Thrombocytopenia -- chronic since 2010 ?--suspect liver disease May be due to splenomegaly but ? hepatosplenomegaly GI consult appreciated For EGD/colonoscopy on Tuesday suspect liver disease and splenic sequestration . Poor response to transfusion due to splenic sequestration Will transfuse platelets prior to procedures on Tuesday but unsure if she will respond due to splenic sequestration can hold transfusions if Hb greater than 7 and hemodynamically stable as she is having a poor respose to blood transfusion Transfuse 1 unit of platelets on tuesday before and during the procedure to enable biopsies
[2016-12-11] MEDS ORDERED: PHYTONADIONE 5 MG TABLET PO SCH (13:15)
[2016-12-11] MEDS: ATORVASTATIN CA 10 MG TABLET (FP) PO SCH (21:34)
[2016-12-11] MEDS: EZETIMIBE 10 MG TABLET (FP) PO SCH (21:34)
[2016-12-11] MEDS: METOPROLOL SUCCINATE 50 MG TAB.SR.24H (FP) PO SCH (21:34)
[2016-12-12 02:47] LABS: TROPONIN I 0.22 ng/ml (0.00-0.05)
[2016-12-12 06:36] LABS: HEMATOCRIT 21.7 % (34.0-46.6)
[2016-12-12] MEDS: INSULIN SLIDING SCALE (NOVOLOG) 1 VIAL SQ SCH ×4 (07:39→22:04)
[2016-12-12] MEDS: LIDOCAINE 5% TOPICAL PATCH TP SCH ×2 (09:44→22:06)
[2016-12-12] MEDS: ASPIRIN 81 MG CHEWABLE TABLETS PO SCH (09:44)
[2016-12-12] MEDS ORDERED: PT OWN MED DRAWER 7, Y5N ONE ×2 (09:46→21:13)
[2016-12-12] MEDS: BUDESONIDE/FORMETEROL FUMARATE 160/4.5 mcg INHALER IH SCH (09:46)
[2016-12-12] MEDS: TIOTROPIUM BROMIDE 18 MCG/INH (DEVICE W/ 5 CAPSULES) IH SCH (09:46)
--- NOTE | 2016-12-12 10:33 | PN ---
Progress Note (short form) - Note Progress Note: Patient seen and examined She is fine today Planning for an EGD/ Colonoscopy on Tuesday Vital Signs Period Temp Pulse Resp BP Sys/Rider Pulse Ox Last 24 Hr 97.7 F-99 F 63-106 18-20 98-142/52-72 90 HEENT: ALLEN, EOM Intact Cor: RSR, No murmurs, No gallops Lungs: Clear to P&A Abd: Soft, Normal bowel sounds, No organomegaly Ext:No significant edema Skin: No rashes, Integument intact Active Medications Generic Name Dose Route Start Last Admin Trade Name Freq PRN Reason Stop Dose Admin Acetaminophen 650 mg 12/09/16 06:34 Tylenol - PO Q6H PRN PAIN Aspirin 81 mg 12/09/16 10:00 12/12/16 09:44 Asa - PO Not Given DAILY [facility] Atorvastatin Calcium 10 mg 12/09/16 22:00 12/11/16 21:34 Lipitor - PO 10 mg HS [facility] Administration Bisacodyl 20 mg 12/12/16 19:00 Dulcolax - PO 12/12/16 19:01 ONCE ONE Budesonide/Formoterol Fumarate 2 puff 12/09/16 10:00 12/12/16 09:46 Symbicort 160/4.5mcg - IH 2 inh DAILY [facility] Administration Ezetimibe 10 mg 12/09/16 22:00 12/11/16 21:34 Zetia - PO 10 mg HS [facility] Administration Insulin Aspart 1 vial 12/09/16 07:00 12/12/16 07:39 Novolog Vial Sliding Scale - SQ 2 units ACHS [facility] Administration Protocol Lidocaine 1 patch 12/10/16 09:08 12/12/16 09:44 Lidoderm Patch - TP Not Given DAILY [facility] Metoprolol Succinate 50 mg 12/10/16 12:19 12/11/16 21:34 Toprol Xl - PO 50 mg HS [facility] Administration Polyethylene Glycol 255 gm 12/12/16 13:00 Miralax (For Bowel Prep) - PO 12/12/16 13:01 ONCE ONE Tiotropium [place] 1 puff 12/09/16 10:00 12/12/16 09:46 Spiriva - IH 1 puff DAILY [facility] Administration CBC, BMP 12/11/16 07:30 12/11/16 07:30 A/P 6 y/o patient with HTN, DM. COPD, comes in with symptomatic anemia Macrocytic anemia-- chronic macrocytosis/new onset anemia acute onset ---nl hemoglobin 11/16 nl B12/TSH Liver U/S -- hepatosplenomegaly with coarse echotexture s/o liver disease vs fatty liver stool occult + ferritin --22 await iron saturation LDH--nlhaptoglobin pending. Edilia 1+ IgG/C3 neg. LDH nl hence brisk hemolysis unlikely I agree that a BM is indicated. She told me that proposed a BM biopsy 4 years ago and she declined. She still doesnt want to do it now as well. I will defer it to the primary hematologists /[place] to decide about this. Poor response to blood transfusion due to splenic sequestration? Reticulocyte production index > 3% suggestive of adequate marrow response to severe anemia Suspect acute onset suggestive of gi bleed MDS in the differential but less likely Thrombocytopenia -- chronic since 2010 ?--suspect liver disease May be due to splenomegaly but ? hepatosplenomegaly GI consult appreciated For EGD/colonoscopy on Tuesday suspect liver disease and splenic sequestration . Poor response to transfusion due to splenic sequestration Will transfuse platelets prior to procedures on Tuesday but unsure if she will respond due to splenic sequestration can hold transfusions if Hb greater than 7 and hemodynamically stable as she is having a poor respose to blood transfusion Transfuse 1 unit of platelets on tuesday before and during the procedure to enable biopsies
[2016-12-12] MEDS ORDERED: INSULIN (NOVOLOG) ASPART 100 UNITS/ML 10ML VIAL ONE ×2 (10:43→15:48)
--- NOTE | 2016-12-12 12:17 | PN ---
Progress Note (short form) - Note Progress Note: Chief Complaint: Events noted, notes reviewed, denies any chest pain or dyspnea History of Present Illness: Seen and examined. Events noted, notes reviewed, denies any chest pain or dyspnea To proceed with EGD and colonoscopy on Tuesday Echocardiography performed 12/10/16 revealed LVH with normal LV systolic function , LA dilatation, MAC, moderate with LUIS of 1.1 cm2, mild MR, moderate TR with RVSP of 40-50 mmHg Medications: Current Medications Acetaminophen (Tylenol -) 650 mg PO Q6H PRN PRN Reason: PAIN Aspirin (Asa -) 81 mg PO DAILY [facility] Last Admin: 12/12/16 09:44 Dose: Not Given Atorvastatin Calcium (Lipitor -) 10 mg PO [facility] Last Admin: 12/11/16 21:34 Dose: 10 mg Bisacodyl (Dulcolax -) 20 mg PO ONCE ONE Stop: 12/12/16 19:01 Budesonide/Formoterol Fumarate (Symbicort 160/4.5mcg -) 2 puff IH DAILY [facility] Last Admin: 12/12/16 09:46 Dose: 2 inh Ezetimibe (Zetia -) 10 mg PO [facility] Last Admin: 12/11/16 21:34 Dose: 10 mg Insulin Aspart (Novolog Vial Sliding Scale -) 1 vial SQ ACHS [facility] PRN Reason: Protocol Last Admin: 12/12/16 10:49 Dose: Not Given Lidocaine (Lidoderm Patch -) 1 patch TP DAILY [facility] Last Admin: 12/12/16 09:44 Dose: Not Given Metoprolol Succinate (Toprol Xl -) 50 mg PO [facility] Last Admin: 12/11/16 21:34 Dose: 50 mg Polyethylene Glycol (Miralax (For Bowel Prep) -) 255 gm PO ONCE ONE Stop: 12/12/16 13:01 Tiotropium [place] (Spiriva -) 1 puff IH DAILY [facility] Last Admin: 12/12/16 09:46 Dose: 1 puff Vital Signs: Last Vital Signs Temp Pulse Resp BP Pulse Ox 97.9 F 80 18 98/52 90 L 12/12/16 05:30 12/12/16 05:30 12/12/16 05:30 12/12/16 05:30 12/11/16 21:00 Constitutional: No Distress, Calm Neck: Supple Negative JVD Respiratory: Clear A&P Bilaterally Cardiovascular: S1 S2 Regular Rate and Rhythm Grade 2-3/6 JOSE Gastrointestinal: Soft Benign Normal Bowel Sounds Ext: No Edema Labs: CBC, BMP 12/11/16 07:30 12/11/16 07:30 Assessment/Plan ASSESSMENT: 1. Dyspnea and progressive fatigue referable to profound anemia etiology to be determined 2. CAD angina pectoris with evidence of demand ischemia 3. Diastolic dysfunction with class I NYHA classifiaction LV failure, compensated 4. Aortic valve disease/Aortic stenosis, moderate in severity 5. HTN 6. NIDDM 7. Hypercholesterolemia 8. Carotid artery disease post CEA 9. COPD 10. Thrombocytopenia 11. Acute renal insufficiency, resolved PLAN: 1. Continue Toprol XL 2. Continue ASA with caution 3. Continue Lipitor and Zetia 4. There are no absolute contraindications in proceeding with planned GI evaluation including EGD and colonoscopy despite evidence of a recent myocardial demand ischemic events related to the urgency involved in diagnosing source of symptomatic transfusion refractory anemia, source of bleed Mykel Cobb MD
[2016-12-12] MEDS ORDERED: POLYETHYLENE GLYCOL 3350 255 GM BTL PO ONE (13:00)
--- NOTE | 2016-12-12 13:39 | PN ---
Progress Note (short form) - Note Progress Note: MEDICAL ATTENDING APPEARS STABLE CBC PENDING FOR TODAY 4 UNITS TRANSFUSED MACROCYTIC INDICES AND LOW PLATELETS WORK UP UNDERWAY STOOL GUIAC POSITIVE ECHO NOTED WILL HAVE EGD/COLONOSCOPY TUESDAY TUMOR MARKERS PENDING Sami LEE MD
[2016-12-12 13:55] LABS: MCH 31.7 pg (25.7-33.7); MCHC 32.4 g/dl (32.0-36.0)
[2016-12-12 13:58] LABS: MEAN CELL VOLUME 97.7 fl (80-96); MEAN PLT VOLUME 7.7 fl (7.5-11.1); PLATELET COUNT 60 K/MM3 (134-434); RDW 19.9 % (11.6-15.6); WHITE BLOOD COUNT 3.4 K/mm3 (4.0-10.0)
[2016-12-12 14:08] LABS: INR 1.33 (0.82-1.09); PROTHROMBIN TIME (PATIENT) 14.7 SEC (9.98-11.88)
[2016-12-12 14:35] LABS: ANISOCYTOSIS 2+; HYPOCHROMIA 2+; MICROCYTOSIS 1+; POIKILOCYTOSIS 1+; POLYCHROMASIA 2+; TARGET CELLS 2+; TEAR DROP CELLS 1+
[2016-12-12] MEDS ORDERED: PHYTONADIONE 5 MG TABLET PO ONE (15:04)
--- NOTE | 2016-12-12 15:10 | PN ---
GI Progress Note Subjective: GASTROENTEROLOGY BOWEL PREP HAVING EFFECT, SHE IS TOLERATEING IT WELL, THERE IS NO BLEEDING SEEN. REPEAT CBC AND PLT STILL LOW , PLATELETS ORDERED BY HEMEATOLOGY, NEED FOR TRANSFUSION TODAY CALL OUT TO [facility] FOR EGD/COLON TUESDAY - Objective Vital Signs: Vital Signs Temperature 97.9 F 12/12/16 14:21 Pulse Rate 90 12/12/16 14:21 Respiratory Rate 20 12/12/16 08:00 Blood Pressure 114/52 12/12/16 14:21 O2 Sat by Pulse Oximetry (%) 94 L 12/12/16 08:00 Constitutional: No Distress HENT: Yes: WNL Neck: Yes: WNL Cardiovascular: Yes: WNL Respiratory: Yes: WNL Gastrointestinal Inspection: Yes: WNL ...Auscultate: Yes: Normoactive Bowel Sounds ...Palpate: Yes: Soft Extremities: Yes: WNL Labs: CBC, BMP 12/12/16 13:05 12/11/16 07:30 INR, PTT INR 1.33 (0.82-1.09) H 12/12/16 13:05 Fibrinogen 201.0 mg/dL (238-498) L 12/11/16 07:30 Laboratory Tests 12/09/16 12/11/16 12/12/16 00:50 07:30 13:05 WBC 3.4 L RBC 2.17 L Hgb 6.9 L* Hct 21.2 L MCV 97.7 H MCHC 32.4 RDW 19.9 H Plt Count 60 L INR 1.42 H 1.45 H 12/12/16 13:05 WBC RBC Hgb Hct MCV MCHC RDW Plt Count INR 1.33 H Problem List - Problems (1) Anemia Assessment/Plan: FOR EGD AND COLONOSCOPY TUESDAY [facility] ON BOARD AND ADJUSTING PLATELETS REPEAT LABS IN AM, GIVE ANOTHER DOSE OF ORAL VIT K TO IMPROVE INR REFRACTORY ANEMIA SECONDARY HYPERSPLENISM?? FURTHER WORKUP POST EGD AND COLONOSCOPY PATIENT HAS HAD THESE STUDIES BEFORE. RISKS AND BENEFIT S EXPLAINED AND SHE AGREES TO THE PROCEDURE AND SEDATION Code(s): D64.9 - ANEMIA, UNSPECIFIED Qualifiers: Anemia type: other cause (2) Thrombocytopenia Assessment/Plan: HYPERSPLENISM?? DOUBT PORTAL HTN Code(s): D69.6 - THROMBOCYTOPENIA, UNSPECIFIED (3) Hepatosplenomegaly Assessment/Plan: SEND OF FIBROSURE TESTING OUTPATIENT Code(s): R16.2 - HEPATOMEGALY WITH SPLENOMEGALY, NOT ELSEWHERE CLASSIFIED (4) Demand ischemia Code(s): I24.8 - OTHER FORMS OF ACUTE ISCHEMIC HEART DISEASE (5) Diastolic dysfunction without heart failure Code(s): I51.9 - HEART DISEASE, UNSPECIFIED (6) CAD (coronary artery disease) Code(s): I25.10 - ATHSCL HEART DISEASE OF [place] CORONARY ARTERY W/O ANG PCTRS Qualifiers: Coronary Disease-Associated Artery/Lesion type: [place] artery [place] vs. transplanted heart: [place] heart Associated angina: without angina Qualified Code(s): I25.10 - Atherosclerotic heart disease of [place] coronary artery without angina pectoris (7) COPD (chronic obstructive pulmonary disease) Code(s): J44.9 - CHRONIC OBSTRUCTIVE PULMONARY DISEASE, UNSPECIFIED Qualifiers : COPD type: unspecified COPD Qualified Code(s): J44.9 - Chronic obstructive pulmonary disease, unspecified (8) Diabetes Code(s): E11.9 - TYPE 2 DIABETES MELLITUS WITHOUT COMPLICATIONS Qualifiers: Diabetes mellitus type: type 2 Diabetes mellitus complication status: without complication Diabetes mellitus care home insulin use: without care home use Qualified Code(s): E11.9 - Type 2 diabetes mellitus without complications (9) Dizziness Code(s): R42 - DIZZINESS AND GIDDINESS (10) HTN (hypertension) Code(s): I10 - ESSENTIAL (PRIMARY) HYPERTENSION Qualifiers: Hypertension type: essential hypertension Qualified Code(s): I10 - Essential (primary) hypertension (11) Hypercholesterolemia Code(s): E78.0 - PURE HYPERCHOLESTEROLEMIA * DO NOT USE * (12) Vertigo Code(s): R42 - DIZZINESS AND GIDDINESS
[2016-12-12] MEDS ORDERED: BISACODYL 5 MG TABLET.DR (FP) PO ONE (19:00)
[2016-12-12] MEDS: EZETIMIBE 10 MG TABLET (FP) PO SCH (22:04)
[2016-12-12] MEDS: ATORVASTATIN CA 10 MG TABLET (FP) PO SCH (22:04)
[2016-12-12] MEDS: METOPROLOL SUCCINATE 50 MG TAB.SR.24H (FP) PO SCH (22:04)
[2016-12-13] MEDS: INSULIN SLIDING SCALE (NOVOLOG) 1 VIAL SQ SCH ×4 (06:17→21:23)
[2016-12-13 08:10] LABS: EOSINOPHIL 2.7 % (0-4.5); MCH 31.4 pg (25.7-33.7); MEAN CELL VOLUME 95.1 fl (80-96); MEAN PLT VOLUME 7.5 fl (7.5-11.1); NEUTROPHILS 66.5 % (42.8-82.8); PLATELET COUNT 68 K/MM3 (134-434); WHITE BLOOD COUNT 4.6 K/mm3 (4.0-10.0)
[2016-12-13 08:21] LABS: INR 1.32 (0.82-1.09); PROTHROMBIN TIME (PATIENT) 14.6 SEC (9.98-11.88)
[2016-12-13 08:55] LABS: CALCIUM 8.2 mg/dL (8.5-10.1); CREATININE 0.8 mg/dL (0.55-1.02)
[2016-12-13] MEDS: LIDOCAINE 5% TOPICAL PATCH TP SCH ×2 (09:33→21:24)
[2016-12-13] MEDS: BUDESONIDE/FORMETEROL FUMARATE 160/4.5 mcg INHALER IH SCH (09:34)
[2016-12-13] MEDS: TIOTROPIUM BROMIDE 18 MCG/INH (DEVICE W/ 5 CAPSULES) IH SCH (09:34)
[2016-12-13] MEDS ORDERED: LIDOCAINE HCL/PF 1% SDV 5ML VIAL ONE (10:25)
[2016-12-13] MEDS ORDERED: PROPOFOL 20 ML ONE ×2 (10:26)
--- NOTE | 2016-12-13 11:54 | PN ---
Progress Note (short form) - Note Progress Note: GASTROENTEROLOGY SEE ENDO NOTES DESPITE TRANSFUSION OF PLATELETS BRISK BLEEDING IN DUODENUM, S/P ENDOSCOPY NOW WITH GOOD HEMOSTASIS TRANSFUSE ON EUNIT BLOOD IV PROTONIX FULL LIQUID DIET FOLLOW CBC TODAY AND IN AM JOSE MARTEL MD Problem List - Problems (1) Anemia Code(s): D64.9 - ANEMIA, UNSPECIFIED Qualifiers: Anemia type: other cause (2) Thrombocytopenia Code(s): D69.6 - THROMBOCYTOPENIA, UNSPECIFIED (3) Hepatosplenomegaly Code(s): R16.2 - HEPATOMEGALY WITH SPLENOMEGALY, NOT ELSEWHERE CLASSIFIED (4) Demand ischemia Code(s): I24.8 - OTHER FORMS OF ACUTE ISCHEMIC HEART DISEASE (5) Diastolic dysfunction without heart failure Code(s): I51.9 - HEART DISEASE, UNSPECIFIED (6) CAD (coronary artery disease) Code(s): I25.10 - ATHSCL HEART DISEASE OF [place] CORONARY ARTERY W/O ANG PCTRS Qualifiers: Coronary Disease-Associated Artery/Lesion type: [place] artery [place] vs. transplanted heart: [place] heart Associated angina: without angina Qualified Code(s): I25.10 - Atherosclerotic heart disease of [place] coronary artery without angina pectoris (7) COPD (chronic obstructive pulmonary disease) Code(s): J44.9 - CHRONIC OBSTRUCTIVE PULMONARY DISEASE, UNSPECIFIED Qualifiers : COPD type: unspecified COPD Qualified Code(s): J44.9 - Chronic obstructive pulmonary disease, unspecified (8) Diabetes Code(s): E11.9 - TYPE 2 DIABETES MELLITUS WITHOUT COMPLICATIONS Qualifiers: Diabetes mellitus type: type 2 Diabetes mellitus complication status: without complication Diabetes mellitus detention insulin use: without intermediate project manager use Qualified Code(s): E11.9 - Type 2 diabetes mellitus without complications (9) Dizziness Code(s): R42 - DIZZINESS AND GIDDINESS (10) HTN (hypertension) Code(s): I10 - ESSENTIAL (PRIMARY) HYPERTENSION Qualifiers: Hypertension type: essential hypertension Qualified Code(s): I10 - Essential (primary) hypertension (11) Hypercholesterolemia Code(s): E78.0 - PURE HYPERCHOLESTEROLEMIA * DO NOT USE * (12) Vertigo Code(s): R42 - DIZZINESS AND GIDDINESS
--- NOTE | 2016-12-13 12:43 | PN ---
Progress Note, Physician History of Present Illness: Tolerated EGD and colonoscopy for anemia w/u without clinical sequelae, duodenal bleeding noted, epi injections, ASA d/lizzeth. - Current Medication List Current Medications: Active Medications Acetaminophen (Tylenol -) 650 mg PO Q6H PRN PRN Reason: PAIN Atorvastatin Calcium (Lipitor -) 10 mg PO HS [facility] Last Admin: 12/12/16 22:04 Dose: 10 mg Budesonide/Formoterol Fumarate (Symbicort 160/4.5mcg -) 2 puff IH DAILY [facility] Last Admin: 12/13/16 09:34 Dose: Not Given Ezetimibe (Zetia -) 10 mg PO HS [facility] Last Admin: 12/12/16 22:04 Dose: 10 mg Pantoprazole Sodium (Protonix 40mg Ivpb (Pre-Docked)) 100 mls @ 200 mls/hr IVPB BID [facility] Insulin Aspart (Novolog Vial Sliding Scale -) 1 vial SQ ACHS [facility] PRN Reason: Protocol Last Admin: 12/13/16 06:17 Dose: Not Given Lidocaine (Lidoderm Patch -) 1 patch TP DAILY [facility] Last Admin: 12/13/16 09:33 Dose: Not Given Metoprolol Succinate (Toprol Xl -) 50 mg PO HS [facility] Last Admin: 12/12/16 22:04 Dose: 50 mg Tiotropium [place] (Spiriva -) 1 puff IH DAILY [facility] Last Admin: 12/13/16 09:34 Dose: Not Given - Objective Vital Signs: Vital Signs Temperature 98.7 F 12/13/16 12:17 Pulse Rate 92 H 12/13/16 12:17 Respiratory Rate 20 12/13/16 12:17 Blood Pressure 118/47 12/13/16 12:17 O2 Sat by Pulse Oximetry (%) 100 12/13/16 12:17 Constitutional: Yes: No Distress, Calm Neck: Yes: Supple Cardiovascular: Yes: Regular Rate and Rhythm Respiratory: Yes: Regular, Diminished Gastrointestinal: Yes: Soft, Hypoactive Bowel Sounds Edema: No Labs: CBC, BMP 12/13/16 07:15 12/13/16 07:15 INR, PTT INR 1.32 (0.82-1.09) H 12/13/16 07:15 Fibrinogen 201.0 mg/dL (238-498) L 12/11/16 07:30 Problem List - Problems (1) Anemia Code(s): D64.9 - ANEMIA, UNSPECIFIED Qualifiers: Anemia type: iron deficiency Iron deficiency anemia type: chronic blood loss Qualified Code(s): D50.0 - Iron deficiency anemia secondary to blood loss (chronic) (2) SOB (shortness of breath) Code(s): R06.02 - SHORTNESS OF BREATH (3) CAD (coronary artery disease) Code(s): I25.10 - ATHSCL HEART DISEASE OF [place] CORONARY ARTERY W/O ANG PCTRS Qualifiers: Coronary Disease-Associated Artery/Lesion type: [place] artery [place] vs. transplanted heart: [place] heart Associated angina: without angina Qualified Code(s): I25.10 - Atherosclerotic heart disease of [place] coronary artery without angina pectoris (4) COPD (chronic obstructive pulmonary disease) Code(s): J44.9 - CHRONIC OBSTRUCTIVE PULMONARY DISEASE, UNSPECIFIED Qualifiers : COPD type: unspecified COPD Qualified Code(s): J44.9 - Chronic obstructive pulmonary disease, unspecified (5) Diabetes Code(s): E11.9 - TYPE 2 DIABETES MELLITUS WITHOUT COMPLICATIONS Qualifiers: Diabetes mellitus type: type 2 Diabetes mellitus complication status: without complication Diabetes mellitus usp insulin use: without termite treater use Qualified Code(s): E11.9 - Type 2 diabetes mellitus without complications (6) HTN (hypertension) Code(s): I10 - ESSENTIAL (PRIMARY) HYPERTENSION Qualifiers: Hypertension type: essential hypertension Qualified Code(s): I10 - Essential (primary) hypertension (7) Hypercholesterolemia Code(s): E78.0 - PURE HYPERCHOLESTEROLEMIA * DO NOT USE * (8) Demand ischemia Code(s): I24.8 - OTHER FORMS OF ACUTE ISCHEMIC HEART DISEASE (9) Diastolic dysfunction without heart failure Code(s): I51.9 - HEART DISEASE, UNSPECIFIED Assessment/Plan F/u echo to assess LV and valve fxn, trend trops to document peak 1. Dyspnea, light-headedness, fatigue referable to profound anemia -> duodenal bleeding post-epinephrine injections stable CV bryant post-procedure 2. CAD, demand ischemia 3. HTN/HCVD 4. Chronic neck and shoulder pain - due to osteoarthritis 5. Aortic valve disease/ - moderate 6. COPD 7. NIDDM 8. Hypercholesterolemia 9. Carotid artery disease s/p CEA 10. Vitamin D deficiency 11. Thrombocytopenia 12. WAYNE due to #1 resolved 13. Diastolic dysfunction PLAN: 1. Continue Metoprolol 50 qd as hemodynamics tolerates, monitor Hgb, advance diet as tolerated 2. Continue Lipitor 10 qd, Zetia 10 qd, ASA d/lizzeth. 3. BD, O2 as you are, DVT and protonix gtt
[2016-12-13] MEDS: PANTOPRAZOLE SODIUM 100 ML IVPB SCH ×2 (12:56→21:23)
--- NOTE | 2016-12-13 14:37 | PN ---
Progress Note (short form) - Note Progress Note: PULMONARY/MED s/p EGD/colonoscopy showing gastritis, duodenal AVMs s/p epinephrine injections and cautery. Last Vital Signs Temp Pulse Resp BP Pulse Ox 97.2 F L 95 H 20 125/64 94 L 12/13/16 12:45 12/13/16 12:45 12/13/16 12:45 12/13/16 12:45 12/13/16 12:45 Gen: NAD at rest Heart: RRR Lung: decreased breath sounds at the bases Abd: soft, nontender Ext: no edema CBC, BMP 12/13/16 07:15 12/13/16 07:15 Active Medications Acetaminophen (Tylenol -) 650 mg PO Q6H PRN PRN Reason: PAIN Atorvastatin Calcium (Lipitor -) 10 mg PO HS [facility] Last Admin: 12/12/16 22:04 Dose: 10 mg Budesonide/Formoterol Fumarate (Symbicort 160/4.5mcg -) 2 puff IH DAILY [facility] Last Admin: 12/13/16 09:34 Dose: Not Given Ezetimibe (Zetia -) 10 mg PO HS [facility] Last Admin: 12/12/16 22:04 Dose: 10 mg Pantoprazole Sodium (Protonix 40mg Ivpb (Pre-Docked)) 100 mls @ 200 mls/hr IVPB BID [facility] Last Admin: 12/13/16 12:56 Dose: 200 mls/hr Insulin Aspart (Novolog Vial Sliding Scale -) 1 vial SQ ACHS [facility] PRN Reason: Protocol Last Admin: 12/13/16 12:52 Dose: Not Given Lidocaine (Lidoderm Patch -) 1 patch TP DAILY [facility] Last Admin: 12/13/16 09:33 Dose: Not Given Metoprolol Succinate (Toprol Xl -) 50 mg PO HS [facility] Last Admin: 12/12/16 22:04 Dose: 50 mg Tiotropium [place] (Spiriva -) 1 puff IH DAILY [facility] Last Admin: 12/13/16 09:34 Dose: Not Given A/P GI Bleed from AVM s/p cautery/epi injections Acute Blood Loss Anemia CAD Aortic Stenosis HTN COPD DM Hypercholesterolemia LV Diastolic Dysfunction - monitor H/H - transfuse as needed - protonix - O2 as needed - PO per GI - inhaled bronchodilators - DVT prophylaxis
--- NOTE | 2016-12-13 14:44 | PN ---
Progress Note (short form) - Note Progress Note: Patient seen and examined Feels better Last Vital Signs Temp Pulse Resp BP Pulse Ox 98 F 90 20 113/53 96 12/10/16 14:00 12/10/16 14:00 12/10/16 14:00 12/10/16 14:00 12/10/16 09:00 HEENT: [place], EOM Intact Oropharynx: No thrush, No mucositis Cor: RSR, No murmurs, No gallops Lungs: Clear to P&A Abd: Soft, Normal bowel sounds, No organomegaly Ext:No significant edema Abnormal Lab Results 12/09/16 12/09/16 12/12/16 02:20 08:15 14:46 RBC Hgb Hct RDW Plt Count INR Chloride BUN Random Glucose Calcium Crossmatch See Detail See Detail See Detail 12/13/16 12/13/16 12/13/16 07:15 07:15 07:15 RBC 2.51 L Hgb 7.9 L D Hct 23.9 L RDW 18.0 H Plt Count 68 L INR 1.32 H Chloride 108 H BUN 23 H Random Glucose 154 H Calcium 8.2 L Crossmatch Current Medications Acetaminophen (Tylenol -) 650 mg PO Q6H PRN PRN Reason: PAIN Atorvastatin Calcium (Lipitor -) 10 mg PO HS [facility] Last Admin: 12/12/16 22:04 Dose: 10 mg Budesonide/Formoterol Fumarate (Symbicort 160/4.5mcg -) 2 puff IH DAILY [facility] Last Admin: 12/13/16 09:34 Dose: Not Given Ezetimibe (Zetia -) 10 mg PO HS [facility] Last Admin: 12/12/16 22:04 Dose: 10 mg Pantoprazole Sodium (Protonix 40mg Ivpb (Pre-Docked)) 100 mls @ 200 mls/hr IVPB BID [facility] Last Admin: 12/13/16 12:56 Dose: 200 mls/hr Insulin Aspart (Novolog Vial Sliding Scale -) 1 vial SQ ACHS [facility] PRN Reason: Protocol Last Admin: 12/13/16 12:52 Dose: Not Given Lidocaine (Lidoderm Patch -) 1 patch TP DAILY [facility] Last Admin: 12/13/16 09:33 Dose: Not Given Metoprolol Succinate (Toprol Xl -) 50 mg PO HS [facility] Last Admin: 12/12/16 22:04 Dose: 50 mg Tiotropium [place] (Spiriva -) 1 puff IH DAILY [facility] Last Admin: 12/13/16 09:34 Dose: Not Given A/P 76 y/o patient with HTN, DM. COPD, comes in with symptomatic anemia Macrocytic anemia-- chronic macrocytosis/new onset anemia acute onset ---nl hemoglobin 11/16 nl B12/TSH Liver U/S -- hepatosplenomegaly with coarse echotexture s/o liver disease vs fatty liver stool occult + ferritin --22 await iron saturation LDH--nlhaptoglobin pending. Edilia 1+ IgG/C3 neg. LDH nl hence brisk hemolysis unlikely Poor response to blood transfusion due to splenic sequestration? Reticulocyte production index > 3% suggestive of adequate marrow response to severe anemia Suspect liver disease/ and acute onset suggestive of gi bleed Thrombocytopenia -- chronic since 2010 ?--suspect liver disease MDS/ITP is in the differential but less likely GI consult appreciated s/p 2 units monodonor platelets s/p EGD today and clipping of bleeding AVM. hemostasis achieved Getting 1 unit PRBCs discussed with Dr. Reinoso Low fibrinogen also c/w liver disease--most likely fatty liver patient refusing invasive w/u at this time flowcytometry is pending but suspect liver disease
--- NOTE | 2016-12-13 16:15 | PATH ---
Surgical Pathology Report Patient Name: REINIER MOORE [facility]. Rec. #: [id number] /Age/Gender: 1940 (Age: 76) / F Account: [id number] Location: [address] [place] [address] Taken: 12/10/2016 Received: 12/10/2016 Reported: 12/13/2016 Physicians: Guerline Cloud M.D. Specimen(s) Received PERIPHERAL BLOOD Clinical History Macrocytic anemia Final Diagnosis FLOW CYTOMETRY PERFORMED AND INTERPRETED [facility] [place] ([id number]) SHOWED THE FOLLOWING: INTERPRETATION: In the sample analyzed there is no evidence of B or T-cell proliferative disorders or increased blasts. Phenotype: In the sample analyzed, there is a mixed population of granulocytes, monocytes and lymphoid cells. CD34+ myeloblasts are < 0.1%. Granulocytes are 63% of total cells. Monocytes are 8% of total cells. There is no overt abnormal myeloid antigen expression. The B-cells (6% of total) appear polytypic. The T-cells (19% of total) show no [place]illa T-cell antigenic deletion. The TLGLs are 2% of total, the NK cells are 2% of total events. MDS AND MPN FISH STUDIES PERFORMED AND INTERPRETED AT [place], [place] ([id number]) ARE FOLLOWS: INTERPRETATION: No evidence of deletion 5q or monosomy 5 is present. No evidence of deletion 7q or monosomy 7 is present. No evidence of trisomy8 (+8) is present. No evidence of deletion 13q14 is present. No evidence of a rearrangement of 11q23. No evidence of a deletion of the p53 (17p13) locus. No evidence of deletion 20q12 is present. No BCR/ABL1 t(9;22) translocation is detected. Comments: The study is negative for many of the most common recurrent genetic abnormalities in Myelodysplastic Syndrome. Correlation with pending cytogenetics ([id number]) is recommended. Electronically Signed Tuan Vieyra M.D. Addendum Reported: 12/15/2016 Addendum Diagnosis JAK2 V617F MUTATION ANALYSIS BY PCR PERFORMED AND INTERPRETED AT [employer] [place], [place] ([id number]) SHOWED THE FOLLOWING: RESULTS: ONLY THE WILD-TYPE JAK2 SEQUENCE WAS DETECTED. INTERPRETATION: NEGATIVE FOR JAK2 V617F MUTATION. BCR-ABL GENE REARRANGEMENT-QUANTITATIVE REAL TIME PCR ANALYSIS (IS) PERFORMED AND INTERPRETED AT [facility], [place], [place] ([id number]) SHOWED THE FOLLOWING: RESULTS: NEGATIVE BCR/ABL MAJOR BREAKPOINTS (b2a2 AND b3a2): NOT DETECTED. BCR/ABL MINOR BREAKPOINT (e1a2): NOT DETECTED. INTERPRETATION: NO BCR-ABL TRANSLOCATION WAS DETECTED IN THIS SAMPLE. Tuan Vieyra M.D. Gross Description Received are 2 purple top tubes and 2 green top tubes of blood which are sent to [facility]. 12/10/2016 saudi12/10/2016
[2016-12-13] MEDS ORDERED: PT OWN MED DRAWER 7, Y5N ONE (20:37)
[2016-12-13 20:39] LABS: MCHC 32.4 g/dl (32.0-36.0); MEAN CELL VOLUME 95.6 fl (80-96); MEAN PLT VOLUME 8.1 fl (7.5-11.1); PLATELET COUNT 85 K/MM3 (134-434); RDW 17.6 % (11.6-15.6); WHITE BLOOD COUNT 3.9 K/mm3 (4.0-10.0)
[2016-12-13] MEDS: ATORVASTATIN CA 10 MG TABLET (FP) PO SCH (21:23)
[2016-12-13] MEDS: EZETIMIBE 10 MG TABLET (FP) PO SCH (21:23)
[2016-12-13] MEDS: METOPROLOL SUCCINATE 50 MG TAB.SR.24H (FP) PO SCH (21:24)
[2016-12-14 00:06] LABS: A/G RATIO 1.2 (0.7-1.7); ALBUMIN 2.8 g/dL (2.9-4.4); GLOBULIN, TOTAL 2.4 g/dL (2.2-3.9); M-SPIKE Not Observed g/dL (Not Observed); TOTAL PROTEIN 5.2 g/dL (6.0-8.5)
[2016-12-14] MEDS: INSULIN SLIDING SCALE (NOVOLOG) 1 VIAL SQ SCH ×4 (06:05→22:45)
[2016-12-14 07:55] LABS: MCH 31.7 pg (25.7-33.7); MCHC 33.3 g/dl (32.0-36.0); MEAN CELL VOLUME 95.1 fl (80-96); PLATELET COUNT 76 K/MM3 (134-434); RDW 18.2 % (11.6-15.6); WHITE BLOOD COUNT 3.6 K/mm3 (4.0-10.0)
[2016-12-14] MEDS: PANTOPRAZOLE SODIUM 100 ML IVPB SCH (09:02)
[2016-12-14] MEDS: LIDOCAINE 5% TOPICAL PATCH TP SCH ×2 (09:08→21:37)
[2016-12-14 09:09] LABS: CREATININE 0.9 mg/dL (0.55-1.02); MAGNESIUM 1.9 mg/dL (1.8-2.4); PHOSPHOROUS 4.3 mg/dL (2.5-4.9)
--- NOTE | 2016-12-14 11:06 | PN ---
Progress Note (short form) - Note Progress Note: Results of EGD/colonoscopy noted : gastritis/duodenal AVMs -> S/P epinephrine injections and cautery. H/H stable from post-procedure CBC. Intake & Output 12/11/16 12/12/16 12/13/16 12/14/16 23:59 23:59 23:59 23:59 Intake Total 3100 1700 1928 200 Balance 3100 1700 1928 200 Last Vital Signs Temp Pulse Resp BP Pulse Ox 98.3 F 81 20 92/44 94 L 12/14/16 05:53 12/14/16 05:53 12/14/16 05:53 12/14/16 05:53 12/13/16 21:00 Active Medications Acetaminophen (Tylenol -) 650 mg PO Q6H PRN PRN Reason: PAIN Atorvastatin Calcium (Lipitor -) 10 mg PO HS [facility] Last Admin: 12/13/16 21:23 Dose: 10 mg Budesonide/Formoterol Fumarate (Symbicort 160/4.5mcg -) 2 puff IH DAILY [facility] Last Admin: 12/13/16 09:34 Dose: Not Given Ezetimibe (Zetia -) 10 mg PO HS [facility] Last Admin: 12/13/16 21:23 Dose: 10 mg Pantoprazole Sodium (Protonix 40mg Ivpb (Pre-Docked)) 100 mls @ 200 mls/hr IVPB BID [facility] Last Admin: 12/14/16 09:02 Dose: 200 mls/hr Insulin Aspart (Novolog Vial Sliding Scale -) 1 vial SQ ACHS [facility] PRN Reason: Protocol Last Admin: 12/14/16 06:05 Dose: Not Given Lidocaine (Lidoderm Patch -) 1 patch TP DAILY [facility] Last Admin: 12/14/16 09:08 Dose: Not Given Metoprolol Succinate (Toprol Xl -) 50 mg PO HS [facility] Last Admin: 12/13/16 21:24 Dose: 50 mg Tiotropium [place] (Spiriva -) 1 puff IH DAILY [facility] Last Admin: 12/13/16 09:34 Dose: Not Given Gen: NAD at rest Heart: RRR Lung: decreased breath sounds at the bases Abd: soft, nontender Ext: no edema Laboratory Results - last 24 hr 12/09/16 12/10/16 12/10/16 02:20 06:30 11:55 WBC RBC Hgb Hct MCV MCHC RDW Plt Count MPV Sodium Potassium Chloride Carbon Dioxide Anion Gap BUN Creatinine POC Glucometer Random Glucose Calcium Phosphorus Magnesium Prot Electrophoresis Serum Total Protein 5.2 L Albumin 2.8 L Globulin 2.4 Albumin/Globulin Ratio 1.2 Odvad-4-Emlmswkew 0.2 Fnift-5-Hjqstgsxs 0.5 Beta Globulins 0.8 Gamma Globulins 0.9 LINA M-Vinay Not observed M.pneumoniae IgM Titer <770 Blood Type A POSITIVE Antibody Screen Negative Crossmatch See Detail Spec Expiration Date 12/12/16 12/13/16 12/13/16 14:46 17:13 20:15 WBC 3.9 L RBC 2.48 L Hgb 7.7 L Hct 23.8 L MCV 95.6 MCHC 32.4 RDW 17.6 H Plt Count 85 L D MPV 8.1 Sodium Potassium Chloride Carbon Dioxide Anion Gap BUN Creatinine POC Glucometer 121 Random Glucose Calcium Phosphorus Magnesium Prot Electrophoresis Serum Total Protein Albumin Globulin Albumin/Globulin Ratio Umqby-8-Swgpniaak Keqnb-3-Zrtgrunep Beta Globulins Gamma Globulins LINA M-Vinay M.pneumoniae IgM Titer Blood Type A POSITIVE Antibody Screen Negative Crossmatch See Detail Spec Expiration Date 12/13/16 12/14/16 12/14/16 21:21 05:30 05:30 WBC 3.6 L RBC 2.42 L Hgb 7.7 L Hct 23.1 L MCV 95.1 MCHC 33.3 RDW 18.2 H Plt Count 76 L MPV 8.0 Sodium 144 Potassium 3.7 Chloride 109 H Carbon Dioxide 24 Anion Gap 11 BUN 15 D Creatinine 0.9 POC Glucometer 113 Random Glucose 129 H Calcium 8.0 L Phosphorus 4.3 Magnesium 1.9 Prot Electrophoresis Serum Total Protein Albumin Globulin Albumin/Globulin Ratio Alcrc-3-Ygcazplch Wwdtf-9-Hykcmeqgg Beta Globulins Gamma Globulins LINA M-Vinay M.pneumoniae IgM Titer Blood Type Antibody Screen Crossmatch Spec Expiration Date 12/14/16 06:04 WBC RBC Hgb Hct MCV MCHC RDW Plt Count MPV Sodium Potassium Chloride Carbon Dioxide Anion Gap BUN Creatinine POC Glucometer 144 Random Glucose Calcium Phosphorus Magnesium Prot Electrophoresis Serum Total Protein Albumin Globulin Albumin/Globulin Ratio Vawoc-9-Hghueweaq Cexgo-2-Weirtlycg Beta Globulins Gamma Globulins LINA M-Vinay M.pneumoniae IgM Titer Blood Type Antibody Screen Crossmatch Spec Expiration Date A/P GI Bleed due to gastritis/duodenal AVM -> S/P Cautery/epinephrine injections Acute Blood Loss Anemia CAD Aortic Stenosis HTN COPD DM Hypercholesterolemia LV Diastolic Dysfunction - monitor H/H - transfuse as needed - protonix - O2 as needed - PO as tolerated -> will advance when ok with GI - inhaled bronchodilators - SCDs Dr Marks
[2016-12-14] MEDS: TIOTROPIUM BROMIDE 18 MCG/INH (DEVICE W/ 5 CAPSULES) IH SCH (12:05)
[2016-12-14] MEDS: BUDESONIDE/FORMETEROL FUMARATE 160/4.5 mcg INHALER IH SCH (12:05)
[2016-12-14 14:22] LABS: Hgb A2 2.3 % (0.7-3.1)
[2016-12-14] MEDS ORDERED: PANTOPRAZOLE SODIUM 100 ML IVPB SCH (14:41)
--- NOTE | 2016-12-14 14:48 | PN ---
GI Progress Note Subjective: GASTROENTEROLOGY NO PAIN, NAUSEA, VOMITING NO BM H&H STABLE - Objective Vital Signs: Vital Signs Temperature 97.8 F 12/14/16 14:00 Pulse Rate 78 12/14/16 14:00 Respiratory Rate 18 12/14/16 14:00 Blood Pressure 90/50 12/14/16 09:00 O2 Sat by Pulse Oximetry (%) 94 L 12/13/16 21:00 Constitutional: No Distress Eyes: Yes: Conjunctiva Clear HENT: Yes: WNL Cardiovascular: Yes: WNL Respiratory: Yes: WNL Gastrointestinal Inspection: Yes: WNL ...Auscultate: Yes: Normoactive Bowel Sounds ...Palpate: Yes: Soft Extremities: Yes: WNL Labs: CBC, BMP 12/14/16 05:30 12/14/16 05:30 INR, PTT INR 1.32 (0.82-1.09) H 12/13/16 07:15 Fibrinogen 201.0 mg/dL (238-498) L 12/11/16 07:30 Laboratory Tests 12/10/16 12/11/16 12/12/16 20:15 07:30 13:05 Hgb 7.9 L D 7.2 L 6.9 L* Hct 24.3 L 21.7 L 21.2 L Plt Count 12/13/16 12/13/16 12/14/16 07:15 20:15 05:30 Hgb 7.9 L D 7.7 L 7.7 L Hct 23.9 L 23.8 L 23.1 L Plt Count 68 L 85 L D 76 L Problem List - Problems (1) GI (gastrointestinal hemorrhage) Assessment/Plan: GI BLEEDING FROM RECURRENT ARTERY IN THE DUODENUM NOW CAUTERIZED, INJECTED AND CLIPPED. IT SEEMS TO HAVE STOPPED BLEEDING. ADVANCE TO SOFT DIET TONIGHT, PROTONIX PO BID IN AM AND CONTINUE FOR TWO WEEKS THEN Q DAY. FOLLOW UP WITH PMD 2 WEEKS AND ME IN 4 WEEKS. CBC IN ONE WEEK OUTPATIENT Code(s): K92.2 - GASTROINTESTINAL HEMORRHAGE, UNSPECIFIED (2) Anemia Code(s): D64.9 - ANEMIA, UNSPECIFIED Qualifiers: Anemia type: iron deficiency Iron deficiency anemia type: chronic blood loss Qualified Code(s): D50.0 - Iron deficiency anemia secondary to blood loss (chronic) (3) Thrombocytopenia Code(s): D69.6 - THROMBOCYTOPENIA, UNSPECIFIED (4) Hepatosplenomegaly Code(s): R16.2 - HEPATOMEGALY WITH SPLENOMEGALY, NOT ELSEWHERE CLASSIFIED (5) Demand ischemia Code(s): I24.8 - OTHER FORMS OF ACUTE ISCHEMIC HEART DISEASE (6) Diastolic dysfunction without heart failure Code(s): I51.9 - HEART DISEASE, UNSPECIFIED (7) CAD (coronary artery disease) Code(s): I25.10 - ATHSCL HEART DISEASE OF [place] CORONARY ARTERY W/O ANG PCTRS Qualifiers: Coronary Disease-Associated Artery/Lesion type: [place] artery [place] vs. transplanted heart: [place] heart Associated angina: without angina Qualified Code(s): I25.10 - Atherosclerotic heart disease of [place] coronary artery without angina pectoris (8) COPD (chronic obstructive pulmonary disease) Code(s): J44.9 - CHRONIC OBSTRUCTIVE PULMONARY DISEASE, UNSPECIFIED Qualifiers : COPD type: unspecified COPD Qualified Code(s): J44.9 - Chronic obstructive pulmonary disease, unspecified (9) Diabetes Code(s): E11.9 - TYPE 2 DIABETES MELLITUS WITHOUT COMPLICATIONS Qualifiers: Diabetes mellitus type: type 2 Diabetes mellitus complication status: without complication Diabetes mellitus watermaster insulin use: without chcf use Qualified Code(s): E11.9 - Type 2 diabetes mellitus without complications (10) Dizziness Code(s): R42 - DIZZINESS AND GIDDINESS (11) HTN (hypertension) Code(s): I10 - ESSENTIAL (PRIMARY) HYPERTENSION Qualifiers: Hypertension type: essential hypertension Qualified Code(s): I10 - Essential (primary) hypertension (12) Hypercholesterolemia Code(s): E78.0 - PURE HYPERCHOLESTEROLEMIA * DO NOT USE * (13) Vertigo Code(s): R42 - DIZZINESS AND GIDDINESS
[2016-12-14] MEDS ORDERED: PT OWN MED DRAWER 7, Y5N ONE (20:52)
[2016-12-14] MEDS: EZETIMIBE 10 MG TABLET (FP) PO SCH (21:34)
[2016-12-14] MEDS: METOPROLOL SUCCINATE 50 MG TAB.SR.24H (FP) PO SCH (21:34)
[2016-12-14] MEDS: ATORVASTATIN CA 10 MG TABLET (FP) PO SCH (21:34)
--- NOTE | 2016-12-14 22:45 | PN ---
Progress Note, Physician Chief Complaint: Not in distress History of Present Illness: Patient was seen and examined. Awake and alert. Chart was reviewed Denies chest pain, SOB or palpitation GI input noted - Current Medication List Current Medications: Active Medications Acetaminophen (Tylenol -) 650 mg PO Q6H PRN PRN Reason: PAIN Atorvastatin Calcium (Lipitor -) 10 mg PO HS [facility] Last Admin: 12/14/16 21:34 Dose: 10 mg Budesonide/Formoterol Fumarate (Symbicort 160/4.5mcg -) 2 puff IH DAILY [facility] Last Admin: 12/14/16 12:05 Dose: Not Given Ezetimibe (Zetia -) 10 mg PO HS [facility] Last Admin: 12/14/16 21:34 Dose: 10 mg Pantoprazole Sodium (Protonix 40mg Ivpb (Pre-Docked)) 100 mls @ 200 mls/hr IVPB BID [facility] Stop: 12/15/16 10:00 Last Admin: 12/14/16 22:01 Dose: 200 mls/hr Insulin Aspart (Novolog Vial Sliding Scale -) 1 vial SQ ACHS [facility] PRN Reason: Protocol Last Admin: 12/14/16 17:04 Dose: 2 units Lidocaine (Lidoderm Patch -) 1 patch TP DAILY [facility] Last Admin: 12/14/16 21:37 Dose: 1 patch Metoprolol Succinate (Toprol Xl -) 50 mg PO HS [facility] Last Admin: 12/14/16 21:34 Dose: 50 mg Pantoprazole Sodium (Protonix -) 40 mg PO BID [facility] Tiotropium [place] (Spiriva -) 1 puff IH DAILY [facility] Last Admin: 12/14/16 12:05 Dose: Not Given - Objective Vital Signs: Vital Signs Temperature 97.8 F 12/14/16 14:00 Pulse Rate 78 12/14/16 14:00 Respiratory Rate 18 12/14/16 14:00 Blood Pressure 90/50 12/14/16 09:00 O2 Sat by Pulse Oximetry (%) 94 L 12/13/16 21:00 Neck: Yes: Supple Cardiovascular: Yes: Regular Rate and Rhythm, S1, S2 Respiratory: Yes: CTA Bilaterally Gastrointestinal: Yes: Normal Bowel Sounds, Soft. No: Tenderness Edema: No Labs: CBC, BMP 12/14/16 05:30 12/14/16 05:30 INR, PTT INR 1.32 (0.82-1.09) H 12/13/16 07:15 Fibrinogen 201.0 mg/dL (238-498) L 12/11/16 07:30 Problem List - Problems (1) Anemia Code(s): D64.9 - ANEMIA, UNSPECIFIED Qualifiers: Anemia type: iron deficiency Iron deficiency anemia type: chronic blood loss Qualified Code(s): D50.0 - Iron deficiency anemia secondary to blood loss (chronic) (2) Demand ischemia Code(s): I24.8 - OTHER FORMS OF ACUTE ISCHEMIC HEART DISEASE (3) Diastolic dysfunction without heart failure Code(s): I51.9 - HEART DISEASE, UNSPECIFIED (4) Thrombocytopenia Code(s): D69.6 - THROMBOCYTOPENIA, UNSPECIFIED (5) CAD (coronary artery disease) Code(s): I25.10 - ATHSCL HEART DISEASE OF [place] CORONARY ARTERY W/O ANG PCTRS Qualifiers: Coronary Disease-Associated Artery/Lesion type: [place] artery [place] vs. transplanted heart: [place] heart Associated angina: without angina Qualified Code(s): I25.10 - Atherosclerotic heart disease of [place] coronary artery without angina pectoris (6) COPD (chronic obstructive pulmonary disease) Code(s): J44.9 - CHRONIC OBSTRUCTIVE PULMONARY DISEASE, UNSPECIFIED Qualifiers : COPD type: unspecified COPD Qualified Code(s): J44.9 - Chronic obstructive pulmonary disease, unspecified (7) Diabetes Code(s): E11.9 - TYPE 2 DIABETES MELLITUS WITHOUT COMPLICATIONS Qualifiers: Diabetes mellitus type: type 2 Diabetes mellitus complication status: without complication Diabetes mellitus fpc insulin use: without roasterman use Qualified Code(s): E11.9 - Type 2 diabetes mellitus without complications (8) HTN (hypertension) Code(s): I10 - ESSENTIAL (PRIMARY) HYPERTENSION Qualifiers: Hypertension type: essential hypertension Qualified Code(s): I10 - Essential (primary) hypertension (9) Hypercholesterolemia Code(s): E78.0 - PURE HYPERCHOLESTEROLEMIA * DO NOT USE * Assessment/Plan 1. Dyspnea, light-headedness, fatigue referable to profound anemia - duodenal bleeding post-epinephrine injections 2. CAD with demand ischemia 3. HTN/HCVD 4. Chronic neck and shoulder pain - due to osteoarthritis 5. Aortic valve disease - - moderate 6. COPD 7. NIDDM 8. Hypercholesterolemia 9. Carotid artery disease s/p CEA 10. Vitamin D deficiency 11. Thrombocytopenia 12. WAYNE due to #1 resolved 13. Diastolic dysfunction PLAN: 1. Continue Metoprolol 50 mg QD as hemodynamics tolerates 2. Monitor CBC (H/H) and transfuse as needed. GI input noted as she had GI work up yesterday 3. Continue Lipitor and Zetia. ASA was stopped 4. Bronchodilator, O2, DVT and GI prophylaxis Further plans are to follow Noam Pereira MD
[2016-12-15] MEDS: INSULIN SLIDING SCALE (NOVOLOG) 1 VIAL SQ SCH (06:46)
[2016-12-15] MEDS ORDERED: PT OWN MED DRAWER 7, Y5N ONE (07:11)
[2016-12-15 07:59] LABS: MCH 31.3 pg (25.7-33.7); MCHC 32.1 g/dl (32.0-36.0); MEAN CELL VOLUME 97.3 fl (80-96); MEAN PLT VOLUME 7.7 fl (7.5-11.1); PLATELET COUNT 63 K/MM3 (134-434); RDW 17.9 % (11.6-15.6); WHITE BLOOD COUNT 2.9 K/mm3 (4.0-10.0)
[2016-12-15 08:06] VITALS: BP 108/50
[2016-12-15] MEDS: LIDOCAINE 5% TOPICAL PATCH TP SCH (09:14)
[2016-12-15] MEDS: BUDESONIDE/FORMETEROL FUMARATE 160/4.5 mcg INHALER IH SCH (09:29)
[2016-12-15] MEDS: TIOTROPIUM BROMIDE 18 MCG/INH (DEVICE W/ 5 CAPSULES) IH SCH (09:29)
[2016-12-15] MEDS ORDERED: PANTOPRAZOLE 40 MG TABLET (FP) PO SCH (10:00)
--- NOTE | 2016-12-15 11:40 | PN ---
Progress Note, Physician History of Present Illness: Tolerated EGD and colonoscopy for anemia w/u without clinical sequelae, duodenal bleeding noted, epi injections, ASA d/lizzeth. - Current Medication List Current Medications: Active Medications Acetaminophen (Tylenol -) 650 mg PO Q6H PRN PRN Reason: PAIN Atorvastatin Calcium (Lipitor -) 10 mg PO HS [facility] Last Admin: 12/14/16 21:34 Dose: 10 mg Budesonide/Formoterol Fumarate (Symbicort 160/4.5mcg -) 2 puff IH DAILY [facility] Last Admin: 12/15/16 09:29 Dose: 2 inh Ezetimibe (Zetia -) 10 mg PO HS [facility] Last Admin: 12/14/16 21:34 Dose: 10 mg Insulin Aspart (Novolog Vial Sliding Scale -) 1 vial SQ ACHS [facility] PRN Reason: Protocol Last Admin: 12/15/16 06:46 Dose: Not Given Lidocaine (Lidoderm Patch -) 1 patch TP DAILY [facility] Last Admin: 12/15/16 09:14 Dose: Not Given Metoprolol Succinate (Toprol Xl -) 50 mg PO HS [facility] Last Admin: 12/14/16 21:34 Dose: 50 mg Pantoprazole Sodium (Protonix -) 40 mg PO BID [facility] Last Admin: 12/15/16 09:13 Dose: 40 mg Tiotropium [place] (Spiriva -) 1 puff IH DAILY [facility] Last Admin: 12/15/16 09:29 Dose: 1 puff - Objective Vital Signs: Vital Signs Temperature 97.9 F 12/15/16 06:00 Pulse Rate 77 12/15/16 06:00 Respiratory Rate 20 12/15/16 06:00 Blood Pressure 108/50 12/15/16 06:00 O2 Sat by Pulse Oximetry (%) 94 L 12/14/16 21:00 Constitutional: Yes: No Distress, Calm Neck: Yes: Supple Cardiovascular: Yes: Regular Rate and Rhythm Respiratory: Yes: Regular, CTA Bilaterally Gastrointestinal: Yes: Normal Bowel Sounds, Soft, Abdomen, Obese Edema: No Labs: CBC, BMP 12/15/16 07:15 12/14/16 05:30 INR, PTT INR 1.32 (0.82-1.09) H 12/13/16 07:15 Fibrinogen 201.0 mg/dL (238-498) L 12/11/16 07:30 Problem List - Problems (1) Anemia Code(s): D64.9 - ANEMIA, UNSPECIFIED Qualifiers: Anemia type: iron deficiency Iron deficiency anemia type: chronic blood loss Qualified Code(s): D50.0 - Iron deficiency anemia secondary to blood loss (chronic) (2) SOB (shortness of breath) Code(s): R06.02 - SHORTNESS OF BREATH (3) CAD (coronary artery disease) Code(s): I25.10 - ATHSCL HEART DISEASE OF [place] CORONARY ARTERY W/O ANG PCTRS Qualifiers: Coronary Disease-Associated Artery/Lesion type: [place] artery [place] vs. transplanted heart: [place] heart Associated angina: without angina Qualified Code(s): I25.10 - Atherosclerotic heart disease of [place] coronary artery without angina pectoris (4) COPD (chronic obstructive pulmonary disease) Code(s): J44.9 - CHRONIC OBSTRUCTIVE PULMONARY DISEASE, UNSPECIFIED Qualifiers : COPD type: unspecified COPD Qualified Code(s): J44.9 - Chronic obstructive pulmonary disease, unspecified (5) Diabetes Code(s): E11.9 - TYPE 2 DIABETES MELLITUS WITHOUT COMPLICATIONS Qualifiers: Diabetes mellitus type: type 2 Diabetes mellitus complication status: without complication 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: without termite control service representative use Qualified Code(s): E11.9 - Type 2 diabetes mellitus without complications (6) HTN (hypertension) Code(s): I10 - ESSENTIAL (PRIMARY) HYPERTENSION Qualifiers: Hypertension type: essential hypertension Qualified Code(s): I10 - Essential (primary) hypertension (7) Hypercholesterolemia Code(s): E78.0 - PURE HYPERCHOLESTEROLEMIA * DO NOT USE * (8) Demand ischemia Code(s): I24.8 - OTHER FORMS OF ACUTE ISCHEMIC HEART DISEASE (9) Diastolic dysfunction without heart failure Code(s): I51.9 - HEART DISEASE, UNSPECIFIED Assessment/Plan 12/10/2015 Echo: Normal LV size and fxn, mild MR, mod TR, mild , mild PS, RVSO 40-50 mmHg 1. Dyspnea, light-headedness, fatigue referable to profound anemia -> duodenal bleeding post-epinephrine injections, cautery and endoclipping 2. CAD, demand ischemia 3. HTN/HCVD 4. Chronic neck and shoulder pain - due to osteoarthritis 5. Aortic valve disease/ - moderate 6. COPD 7. NIDDM 8. Hypercholesterolemia 9. Carotid artery disease s/p CEA 10. Vitamin D deficiency 11. Thrombocytopenia 12. WAYNE due to #1 resolved 13. Diastolic dysfunction PLAN: 1. Continue Metoprolol 50 qd as hemodynamics tolerates, monitor Hgb, advance diet as tolerated 2. Continue Lipitor 10 qd, Zetia 10 qd, ASA d/lizzeth. 3. BD as needed and protonix, d/c planning
--- NOTE | 2016-12-15 13:45 | PN ---
Progress Note, Physician History of Present Illness: PULMONARY ALERT,NAD,-SOB,-ABD PAIN,TOLERATING PO,H+H STABLE - Current Medication List Current Medications: Active Medications Acetaminophen (Tylenol -) 650 mg PO Q6H PRN PRN Reason: PAIN Atorvastatin Calcium (Lipitor -) 10 mg PO HS [facility] Last Admin: 12/14/16 21:34 Dose: 10 mg Budesonide/Formoterol Fumarate (Symbicort 160/4.5mcg -) 2 puff IH DAILY [facility] Last Admin: 12/15/16 09:29 Dose: 2 inh Ezetimibe (Zetia -) 10 mg PO HS [facility] Last Admin: 12/14/16 21:34 Dose: 10 mg Insulin Aspart (Novolog Vial Sliding Scale -) 1 vial SQ ACHS [facility] PRN Reason: Protocol Last Admin: 12/15/16 06:46 Dose: Not Given Lidocaine (Lidoderm Patch -) 1 patch TP DAILY [facility] Last Admin: 12/15/16 09:14 Dose: Not Given Metoprolol Succinate (Toprol Xl -) 50 mg PO [facility] Last Admin: 12/14/16 21:34 Dose: 50 mg Pantoprazole Sodium (Protonix -) 40 mg PO BID [facility] Last Admin: 12/15/16 09:13 Dose: 40 mg Tiotropium [place] (Spiriva -) 1 puff IH DAILY [facility] Last Admin: 12/15/16 09:29 Dose: 1 puff - Objective Vital Signs: Vital Signs Temperature 97.9 F 12/15/16 06:00 Pulse Rate 77 12/15/16 06:00 Respiratory Rate 20 12/15/16 06:00 Blood Pressure 108/50 12/15/16 06:00 O2 Sat by Pulse Oximetry (%) 94 L 12/14/16 21:00 Constitutional: Yes: Well Nourished, Calm Eyes: Yes: WNL HENT: Yes: WNL Neck: Yes: WNL Cardiovascular: Yes: Regular Rate and Rhythm, S1, S2 Respiratory: Yes: CTA Bilaterally Gastrointestinal: Yes: Normal Bowel Sounds, Soft Extremities: Yes: WNL Edema: No Labs: CBC, BMP 12/15/16 07:15 12/14/16 05:30 INR, PTT INR 1.32 (0.82-1.09) H 12/13/16 07:15 Fibrinogen 201.0 mg/dL (238-498) L 12/11/16 07:30 Assessment/Plan A/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
[2016-12-15 13:58] VITALS: PULSE 81; TEMP 98.1
== END 2016-12-15 15:17 | disposition home or self-care (01) | DRG 326 ==
LOC: JER 23:11 → JERBED 12-09 02:14 → J6S 12-09 13:45
PROVIDERS: ADMIT Specialist; ATTEND Specialist
PROC: 30233N1 Transfusion of Nonautologous Red Blood Cells into Peripheral Vein, Percutaneous Approach (ICD-10-PCS; 2016-12-10)
PROC: 0D598ZZ Destruction of Duodenum, Via Natural or Artificial Opening Endoscopic (ICD-10-PCS; 2016-12-13)
PROC: 3E0G8GC Introduction of Other Therapeutic Substance into Upper GI, Via Natural or Artificial Opening Endoscopic (ICD-10-PCS; 2016-12-13)
PROC: 0DJD8ZZ Inspection of Lower Intestinal Tract, Via Natural or Artificial Opening Endoscopic (ICD-10-PCS; 2016-12-13)
PROC: 30233R1 Transfusion of Nonautologous Platelets into Peripheral Vein, Percutaneous Approach (ICD-10-PCS; 2016-12-13)
PROC: 0DQ98ZZ Repair Duodenum, Via Natural or Artificial Opening Endoscopic (ICD-10-PCS; principal; 2016-12-13 10:00)
DX: K31.82 Dieulafoy lesion (hemorrhagic) of stomach and duodenum (principal); K29.61 Other gastritis with bleeding; N17.9 Acute kidney failure, unspecified; D62 Acute posthemorrhagic anemia; E78.5 Hyperlipidemia, unspecified; J44.9 Chronic obstructive pulmonary disease, unspecified; D69.6 Thrombocytopenia, unspecified; Z87.891 Personal history of nicotine dependence; D53.9 Nutritional anemia, unspecified; I25.10 Atherosclerotic heart disease of native coronary artery without angina pectoris; E86.0 Dehydration; I25.2 Old myocardial infarction; I35.0 Nonrheumatic aortic (valve) stenosis; E55.9 Vitamin D deficiency, unspecified; R00.0 Tachycardia, unspecified; I11.9 Hypertensive heart disease without heart failure; M19.019 Primary osteoarthritis, unspecified shoulder; M54.2 Cervicalgia; R16.2 Hepatomegaly with splenomegaly, not elsewhere classified; Z79.4 Long term (current) use of insulin; E11.40 Type 2 diabetes mellitus with diabetic neuropathy, unspecified; R27.0 Ataxia, unspecified; K44.9 Diaphragmatic hernia without obstruction or gangrene; K57.30 Diverticulosis of large intestine without perforation or abscess without bleeding; K64.8 Other hemorrhoids; K55.20 Angiodysplasia of colon without hemorrhage
CPT/HCPCS: 36415; 36430; 71010-TC; 76700-TC; 80048; 80053; 80074; 81003; 81015; 82136; 82272; 82378; 82436; 82550; 82570; 82595; 82607; 82728; 82747; 83010; 83021; 83540; 83550; 83615; 83735; 83880; 83883; 83918; 84100; 84133; 84155; 84156; 84157; 84165; 84300; 84443; 84484; 85014; 85025; 85027; 85044; 85384; 85610; 85660; 86157; 86301; 86304; 86738; 86850; 86880; 86900; 86901; 86922; 87389; 88300-TC; 93005; 93010; 93306-TC; 99284-25; P9034; P9038; P9058

== ENCOUNTER 2017-01-13 15:13 | Inpatient (IN) | payer OTHER ==
--- NOTE | 2017-01-13 15:21 | PDOC ---
Rapid Medical Evaluation Time Seen by Provider: 01/13/17 15:18 Medical Evaluation: Allergies Allergy/AdvReac Type Severity Reaction Status Date / Time No Known Drug Allergies Allergy Verified 12/08/16 23:20 01/13/17 15:19 I have performed a brief in-person evaluation of this patient. The patient presents from doctor's office with increase SOB and hypoxia for 2 weeks. After colonscopy had bleeding and transfusion Pertinent physical finding decreased breath sounds, VS noted I have ordered labs and CXR The patient will proceed to the ED for further evaluation
--- NOTE | 2017-01-13 15:43 | PDOC ---
History of Present Illness - General History Source: Patient Exam Limitations: No Limitations - History of Present Illness Initial Comments: 01/13/17 17:28 The patient is a 76-year-old female sent by Dr. Adorno with a significant past medical history of diabetes, HTN, HLD, COPD, and presents to the emergency department with intermittent shortness of breath for one month and left calf swelling. The patient reports that the shortness of breath started at the end of November s/p a colonoscopy and splenic laceration (given 7 units of blood, 2 units of platelets), and she was discharged early December. She states that the dyspnea is worsening, present at rest, and exacerbated by physical exertion. The severity of the dyspnea waxes and wanes, and she occasionally reaches 73% saturation. She uses inhalers once every morning, with some relief. She reports left calf swelling for one week, but denies any calf pain. She is experiencing a non-productive cough but feels sputum in her throat. She does not use any oxygen at home and denies any sick contacts. The patient denies chest pain, headache and dizziness. The patient denies fever , chills, nausea, vomit, diarrhea and constipation. The patient denies dysuria, frequency, urgency and hematuria. Allergies: NKDA Past Surgical History: appendectomy, cholecystectomy, right ankle ORIF, umbilical hernia repair Social History: former smoker (2 packs a day since age 12) Family PMHx: possible phlebitis (mother and sister) <Maame Mae - Last Filed: 01/13/17 18:31> - General History Source: Patient Exam Limitations: No Limitations <Rekha Jose - Last Filed: 01/14/17 19:33> - General Chief Complaint: Shortness of Breath Stated Complaint: PCP SENT FOR ADMIN, SOB Time Seen by Provider: 01/13/17 15:18 Past History <Maame Mae - Last Filed: 01/13/17 18:31> - Past Medical History Anemia: Yes Asthma: No Cancer: No Cardiac Disorders: No CVA: No COPD: No CHF: No Dementia: No Diabetes: Yes (NIDDM) GI Disorders: Yes (diverticulosis,constipation) Disorders: No HTN: Yes Hypercholesterolemia: Yes Liver Disease: No Seizures: No - Surgical History Abdominal Surgery: Yes (repair umbilical hernia) Appendectomy: Yes Cardiac Surgery: No Cholecystectomy: Yes Lung Surgery: No Neurologic Surgery: No Orthopedic Surgery: Yes (ORIF, RIGHT ANKLE) - Immunization History Immunization Up to Date: Yes - Psycho/Social/Smoking Cessation Hx Anxiety: No Suicidal Ideation: No Smoking History: Former smoker Have you smoked in the past 12 months: No If you are a former smoker, when did you quit?: 2010 Information on smoking cessation initiated: No 'Breaking Loose' booklet given: 05/04/12 Hx Alcohol Use: No Drug/Substance Use Hx: No Substance Use Type: None Hx Substance Use Treatment: No <Rekha Jose - Last Filed: 01/14/17 19:33> - Past Medical History Allergies/Adverse Reactions: Allergies Allergy/AdvReac Type Severity Reaction Status Date / Time No Known Drug Allergies Allergy Verified 01/13/17 15:20 Home Medications: Ambulatory Orders Aspirin Coated [Ecotrin -] 81 mg PO DAILY 05/03/12 Ezetimibe/Simvastatin [Vytorin 10-20 mg Tablet] 1 each PO HS 05/03/12 Ferrous Gluconate 325 mg PO DAILY 05/03/12 Glyburide 2.5 mg PO BID 05/03/12 Metoprolol Succinate [Toprol XL -] 50 mg PO HS 05/03/12 Pregabalin [Lyrica] 100 mg PO HS 05/03/12 Budesonide/Formeterol Fumarate [SYMBICORT 160/4.5mcg -] 2 inh PO DAILY 12/31/13 Metformin HCl [Glucophage -] 500 mg PO DAILY 12/31/13 Meclizine HCl [Antivert -] 25 mg PO Q6H PRN #0 tablet 01/02/14 Tiotropium [place] [Spiriva] 1 inh PO DAILY #1 01/02/14 Cholecalciferol (Vitamin D3) [Vitamin D3] 1,000 unit PO DAILY 06/18/14 Cyanocobalamin [Vitamin B12 -] 1,000 mcg PO DAILY 06/18/14 Acetaminophen [Tylenol] 650 mg PO Q6H PRN 12/09/16 Lidocaine 5% Patch [Lidoderm Patch -] 1 patch TP HS 12/09/16 Ascorbate Calcium [Vitamin C] 500 mg PO DAILY 01/13/17 Losartan Potassium 50 mg PO DAILY 01/13/17 Pantoprazole Sodium 40 mg PO DAILY 01/13/17 Review of Systems - Review of Systems Able to Perform ROS?: Yes Comments:: 01/13/17 17:28 GENERAL/CONSTITUTIONAL: No fever or chills. No weakness. HEAD, EYES, EARS, NOSE AND THROAT: No change in vision. No ear pain or discharge. No sore throat. CARDIOVASCULAR: No chest pain. RESPIRATORY: (+) Shortness of breath. (+) Cough. No wheezing, or hemoptysis. GASTROINTESTINAL: No nausea, vomiting, diarrhea or constipation. GENITOURINARY: No dysuria, frequency, or change in urination. MUSCULOSKELETAL: No joint or muscle pain. No neck or back pain. EXTREMITIES: (+) Left leg swelling. SKIN: No rash NEUROLOGIC: No headache, vertigo, loss of consciousness, or change in strength/ sensation. ENDOCRINE: No increased thirst. No abnormal weight change. HEMATOLOGIC/LYMPHATIC: No anemia, easy bleeding, or history of blood clots. ALLERGIC/IMMUNOLOGIC: No hives or skin allergy. <TuMaame - Last Filed: 01/13/17 18:31> *Physical Exam - Vital Signs Last Vital Signs Temp Pulse Resp BP Pulse Ox 97.9 F 104 H 18 156/72 95 01/13/17 15:20 01/13/17 15:20 01/13/17 16:00 01/13/17 15:20 01/13/17 16:00 - Physical Exam Comments: 01/13/17 18:08 GENERAL: Awake, alert, and fully oriented, in no acute distress HEAD: No signs of trauma EYES: PERRLA, EOMI, sclera anicteric, conjunctiva clear ENT: Auricles normal inspection, hearing grossly normal, nares patent, oropharynx clear without exudates. Moist mucosa NECK: Normal ROM, supple, no lymphadenopathy, JVD, or masses LUNGS: (+) Occasional wheezes on expiration in right lung more than the left. (+ ) Minor crackles at the right lower lung base. (+) Bibasilar rales. HEART: (+) Systolic murmur. Regular rhythm, normal S1 and S2, no rubs or gallops ABDOMEN: Soft, nontender, normoactive bowel sounds. No guarding, no rebound. No masses EXTREMITIES: (+) 1+ pitting edema in the left leg. Normal range of motion. No clubbing or cyanosis. No cords, erythema, or tenderness NEUROLOGICAL: Cranial nerves II through XII grossly intact. Normal speech, normal gait SKIN: Warm, Dry, normal turgor, no rashes or lesions noted. <TuMaame - Last Filed: 01/13/17 18:31> - Vital Signs Last Vital Signs Temp Pulse Resp BP Pulse Ox 97.9 F 104 H 18 156/72 93 L 01/13/17 15:20 01/13/17 15:20 01/13/17 15:20 01/13/17 15:20 01/13/17 15:20 <Rekha Jose - Last Filed: 01/14/17 19:33> Heart Score/ECG Review #1 ECG reviewed & interpreted by me at: 18:49 01/13/17 18:49 Twelve-lead EKG was performed and reviewed by me. There is normal sinus rhythm with a normal rate of 98 bpm. Right axis deviation. The intervals are normal - pr:136ms, QRS:132ms (prolonged), QTc:497ms. There are no ST elevations or depressions. RBBB. T waves nml. <Rekha Jose - Last Filed: 01/14/17 19:33> ED Treatment Course - LABORATORY CBC & Chemistry Diagram: 01/13/17 15:39 01/13/17 15:39 - ADDITIONAL ORDERS Additional order review: Laboratory Results 01/13/17 01/13/17 01/13/17 16:40 15:40 15:39 INR 1.28 H PTT (Actin FS) 40.0 H D-Dimer 2301 H Sodium 145 Potassium 3.4 L Chloride 106 Carbon Dioxide 26 Anion Gap 13 BUN 9 D Creatinine 0.9 Creat Clearance w eGFR > 60 Random Glucose 120 H Calcium 8.4 L Total Bilirubin 0.7 AST 20 ALT 12 D Alkaline Phosphatase 68 D Creatine Kinase 34 Troponin I 0.03 B-Natriuretic Peptide 774.89 H Total Protein 7.0 D Albumin 3.3 L D 01/13/17 15:39 RBC 3.61 D MCV 90.2 MCHC 31.1 L RDW 17.1 H MPV 7.8 Neutrophils % 78.2 Lymphocytes % 10.4 D Monocytes % 8.6 Eosinophils % 1.8 Basophils % 1.0 - RADIOLOGY Radiograph Interpretation: 01/13/17 17:44 CHEST XR portable Reviewed by: Dr. Rekha Jose Interpreted by: Dr. Dena Powers IMPRESSION: Interval mild pulmonary venous congestion with bibasal airspace disease, left more than right and small bilateral pleural effusion. 01/13/17 18:31 CHEST/ THORAX CTA Reviewed by: Dr. Rekha Jose Interpreted by: Dr. Carlos Kumar IMPRESSION: Interstitial pulmonary vascular congestion is noted. Small right and trace left pleural effusions are seen. Cardiomegaly. Dilated central pulmonary arterial vasculature suggestive of increased pulmonary arterial pressure. There is mild right basilar subpleural opacity posteriorly probably representing atelectasis, less likely a small infiltrate. Correlate clinically. In comparison to a [address] study interval development of a small to moderate amount of free fluid is noted within the upper abdomen bilaterally. 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 Splenomegaly is again seen. Small hepatic and splenic calcifications are noted consistent with granulomas. <Maame Mae - Last Filed: 01/13/17 18:31> - LABORATORY CBC & Chemistry Diagram: 01/13/17 15:39 01/13/17 15:39 <Rekha Jose - Last Filed: 01/14/17 19:33> Medical Decision Making - Medical Decision Making 01/13/17 15:43 A portion of this note was documented by scribe services under my direction. I have reviewed the details of the note, within reason, and agree with the documentation with the following case summary and management plan written by me. Nursing documentation reviewed and incorporated into medical decision making 01/13/17 17:03 This is a 76 yo F with a history of COPD, recent colonoscopy complicated by splenic laceration and GI bleed s/p 7 units PRBCs and 2 units Plts Pt was discharged on Since being in the hospital, pt states she became short of breath Pt states she has been weak, particularly with exertion She denies chest pain Has a cough, no wheezing, no sputum production Pt has had left lower extremity edema No palpitations DD: pneumonia, PE, ACS, CHF, Laboratory Tests 12/15/16 01/13/17 01/13/17 07:15 15:39 15:39 WBC 2.9 L 4.1 D Hgb 7.7 L 10.1 L D Hct 23.8 L 32.5 D Plt Count 63 L 95 L D Sodium 145 Potassium 3.4 L Chloride 106 Carbon Dioxide 26 BUN 9 D Creatinine 0.9 Random Glucose 120 H Creatine Kinase 34 Troponin I 0.03 B-Natriuretic Peptide 774.89 H 01/13/17 17:13 CXR: bilateral pleural effusion Pt was seen by Dr Adorno in the office today PT sent to the ER for admission Awaiting D Dimer Pt may need CTA Will admit to med surg CTA negative for PE Clinical impression: shortness of breath, effusion <Rekha Jose - Last Filed: 01/14/17 19:33> *DC/Admit/Observation/Transfer - Attestations Scribe Attestion: 01/13/17 17:30 Documentation prepared by Maame Mae, acting as medical management specialist for Rekha Jose MD. <Maame Mae - Last Filed: 01/13/17 18:31> - Discharge Dispostion Admit: Yes <Rekha Jose - Last Filed: 01/14/17 19:33> Diagnosis at time of Disposition: SOB (shortness of breath) - Discharge Dispostion Condition at time of disposition: Stable - Referrals
[2017-01-13 16:13] LABS: EOSINOPHIL 1.8 % (0-4.5); MCHC 31.1 g/dl (32.0-36.0); MEAN CELL VOLUME 90.2 fl (80-96); MEAN PLT VOLUME 7.8 fl (7.5-11.1); NEUTROPHILS 78.2 % (42.8-82.8); PLATELET COUNT 95 K/MM3 (134-434); RDW 17.1 % (11.6-15.6); WHITE BLOOD COUNT 4.1 K/mm3 (4.0-10.0)
--- NOTE | 2017-01-13 16:23 | EKG ---
Test Reason : Blood Pressure : / mmHG Vent. Rate : 098 BPM Atrial Rate : 098 BPM P-R Int : 136 ms QRS Dur : 132 ms QT Int : 390 ms P-R-T Axes : 049 100 000 degrees QTc Int : 497 ms NORMAL SINUS RHYTHM RIGHT BUNDLE BRANCH BLOCK INFERIOR INFARCT , AGE UNDETERMINED ABNORMAL ECG WHEN COMPARED WITH ECG OF 10-DEC-2016 08:57, NO SIGNIFICANT CHANGE WAS FOUND Confirmed by FRITZ SUTTON, CHRIS ([id number]) on 01/13/2017 4:22:52 PM Referred By: Confirmed By:CHRIS HU MD
[2017-01-13 16:28] LABS: ALBUMIN 3.3 g/dl (3.4-5.0); ANION GAP 13 (8-16); BILIRUBIN,TOTAL 0.7 mg/dL (0.2-1.0); CALCIUM 8.4 mg/dL (8.5-10.1); CO2 26 mmol/L (21-32); CREATININE 0.9 mg/dL (0.55-1.02); GLUCOSE,RANDOM 120 mg/dL (74-106); SGOT/AST 20 U/L (15-37); SGPT/ALT 12 U/L (12-78)
[2017-01-13 16:31] LABS: ALK PHOS 68 U/L (45-117); TROPONIN I 0.03 ng/ml (0.00-0.05)
[2017-01-13 16:37] LABS: INR 1.28 (0.82-1.09); PROTHROMBIN TIME (PATIENT) 14.2 SEC (9.98-11.88)
[2017-01-13] MEDS ORDERED: ACETAMINOPHEN 325 MG TABLET (FP) PO PRN (17:35)
[2017-01-13] MEDS ORDERED: MECLIZINE HCL 25 MG TABLET (FP) PO PRN (17:35)
[2017-01-13] MEDS ORDERED: TIOTROPIUM BROMIDE 18 MCG/INH (DEVICE W/ 30 CAPSULES) IH SCH (17:45)
[2017-01-13] MEDS ORDERED: LIDOCAINE 5% TOPICAL PATCH TP SCH (17:45)
[2017-01-13] MEDS ORDERED: glyBURIDE 2.5 MG TABLET (FP) PO SCH (22:00)
[2017-01-13 23:00] VITALS: BMI 32.8
[2017-01-13] MEDS: PREGABALIN 50 MG CAPSULE PO SCH (23:09)
[2017-01-13] MEDS: EZETIMIBE 10 MG TABLET (FP) PO SCH (23:10)
[2017-01-13] MEDS: ATORVASTATIN CA 10 MG TABLET (FP) PO SCH (23:10)
[2017-01-13] MEDS: METOPROLOL SUCCINATE 50 MG TAB.SR.24H (FP) PO SCH (23:10)
[2017-01-13] MEDS: BUDESONIDE/FORMETEROL FUMARATE 160/4.5 mcg INHALER IH SCH (23:11)
[2017-01-13] MEDS: LIDOCAINE 5% TOPICAL PATCH TP SCH (23:12)
[2017-01-13] MEDS: ACLIDINIUM BROMIDE 400 MCG/INH AERO.POWD IH SCH (23:12)
[2017-01-13] MEDS: FUROSEMIDE 40 MG TABLET (FP) PO SCH (23:13)
--- NOTE | 2017-01-14 07:12 | HP ---
Admitting History and Physical - Admission Chief Complaint: sob History of Present Illness: [place] MINIMAL EXERTION PROGRESSIVE SINCE BEING DISCHARGED FROM [facility] LAST MONTH. 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 No: Alzheimer's, Seizure, Syncope, TIA Cardiovascular: Yes: HTN, Hyperlipdemia, [place] Pulmonary: Yes: COPD. No: O2 Dependent Gastrointestinal: Yes: Diverticulosis, Hemorrhoids Hepatobiliary: Yes: Other (HSM) Heme/Onc: Yes: Thrombocytopenia Musculoskeletal: Yes: Osteoarthritis. No: Bursitis, Chronic low back pain, Hemiparesis, Hemiplegia, Paraplegia, Other Endocrine: Yes: Diabetes Mellitus - Past Surgical History Past Surgical History: Yes: Colonoscopy - Smoking History Smoking history: Former smoker Have you smoked in the past 12 months: No If you are a former smoker, when did you quit?: 2010 - Alcohol/Substance Use Hx Alcohol Use: No History of Substance Use: reports: None - Social History ADL: Independent History of Recent Travel: No Home Medications - Allergies Allergies/Adverse Reactions: Allergies Allergy/AdvReac Type Severity Reaction Status Date / Time No Known Drug Allergies Allergy Verified 01/13/17 15:20 - Home Medications Home Medications: Ambulatory Orders Aspirin Coated [Ecotrin -] 81 mg PO DAILY 05/03/12 Ezetimibe/Simvastatin [Vytorin 10-20 mg Tablet] 1 each PO HS 05/03/12 Ferrous Gluconate 325 mg PO DAILY 05/03/12 Glyburide 2.5 mg PO BID 05/03/12 Metoprolol Succinate [Toprol XL -] 50 mg PO HS 05/03/12 Pregabalin [Lyrica] 100 mg PO HS 05/03/12 Budesonide/Formeterol Fumarate [SYMBICORT 160/4.5mcg -] 2 inh PO DAILY 12/31/13 Metformin HCl [Glucophage -] 500 mg PO DAILY 12/31/13 Meclizine HCl [Antivert -] 25 mg PO Q6H PRN #0 tablet 01/02/14 Tiotropium [place] [Spiriva] 1 inh PO DAILY #1 01/02/14 Cholecalciferol (Vitamin D3) [Vitamin D3] 1,000 unit PO DAILY 06/18/14 Cyanocobalamin [Vitamin B12 -] 1,000 mcg PO DAILY 06/18/14 Acetaminophen [Tylenol] 650 mg PO Q6H PRN 12/09/16 Lidocaine 5% Patch [Lidoderm Patch -] 1 patch TP HS 12/09/16 Ascorbate Calcium [Vitamin C] 500 mg PO DAILY 01/13/17 Losartan Potassium 50 mg PO DAILY 01/13/17 Pantoprazole Sodium 40 mg PO DAILY 01/13/17 Family Disease History - Family Disease History Family History: Unremarkable Review of Systems - Review of Systems Constitutional: reports: Lethargy. denies: Fever, Unintentional Wgt. Loss Eyes: reports: No Symptoms HENT: reports: No Symptoms Neck: reports: No Symptoms Cardiovascular: reports: Shortness of Breath. denies: Chest Pain Respiratory: reports: Cough, SOB on Exertion. denies: Hemoptysis, Wheezing Gastrointestinal: reports: No Symptoms. denies: Melena, Rectal Bleeding Genitourinary: reports: No Symptoms Breasts: reports: No Symptoms Reported Musculoskeletal: reports: Back Pain Psychiatric: denies: No Symptoms Physical Examination Vital Signs: Vital Signs Temperature 98.0 F 01/13/17 18:55 Pulse Rate 97 H 01/13/17 18:55 Respiratory Rate 18 01/14/17 00:51 Blood Pressure 132/75 01/13/17 18:55 O2 Sat by Pulse Oximetry (%) 92 L 01/14/17 00:51 Constitutional: Yes: Calm Eyes: Yes: EOM Intact HENT: Yes: Normocephalic Neck: Yes: Trachea Midline Cardiovascular: Yes: Regular Rate and Rhythm Respiratory: Yes: Diminished Gastrointestinal: Yes: Normal Bowel Sounds ...Rectal Exam: Yes: Deferred Renal/: Yes: WNL Musculoskeletal: Yes: WNL Extremities: Yes: WNL Edema: No Imaging - Results Cat Scan: Report Reviewed Problem List - Problems (1) SOB (shortness of breath) Code(s): R06.02 - SHORTNESS OF BREATH (2) Anemia Code(s): D64.9 - ANEMIA, UNSPECIFIED Qualifiers: (3) CAD (coronary artery disease) Code(s): I25.10 - ATHSCL HEART DISEASE OF [place] CORONARY ARTERY W/O ANG PCTRS Qualifiers: (4) COPD (chronic obstructive pulmonary disease) Code(s): J44.9 - CHRONIC OBSTRUCTIVE PULMONARY DISEASE, UNSPECIFIED Qualifiers : (5) Diabetes Code(s): E11.9 - TYPE 2 DIABETES MELLITUS WITHOUT COMPLICATIONS Qualifiers: Assessment/Plan O2 SUPPLEMENTATION BRONCHODILATION CONTINUE HOME MEDS CARDIOLOGY EVALUATION PRE/POST AMB SPO2 ON R/A WILL LIKELY NEED HOME O2 Sami LEE MD
[2017-01-14] MEDS: glyBURIDE 2.5 MG TABLET (FP) PO SCH ×2 (08:31→17:12)
[2017-01-14] MEDS: metFORMIN HCL 500 MG TABLET (FP) PO SCH (08:45)
[2017-01-14] MEDS ORDERED: PT OWN MED DRAWER 7, Y5N ONE ×3 (08:47→17:11)
[2017-01-14] MEDS ORDERED: PATIENT'S OWN MEDICATION (NON-FORMULARY) (Ascorbate Calcium [Vitamin C] 500 MG) PO SCH (10:00)
[2017-01-14] MEDS ORDERED: metFORMIN HCL 500 MG TABLET (FP) PO SCH (10:00)
[2017-01-14] MEDS ORDERED: FERROUS GLUCONATE 325 MG PO SCH (10:00)
[2017-01-14] MEDS: LOSARTAN POTASSIUM 50 MG TABLET (FP) PO SCH (10:05)
[2017-01-14] MEDS: ASPIRIN 325 MG ENTERIC COATED TABLET (FP) PO SCH (10:06)
[2017-01-14] MEDS: CYANOCOBALAMIN 1,000 MCG TABLET (FP) PO SCH (10:07)
[2017-01-14] MEDS: FUROSEMIDE 40 MG TABLET (FP) PO SCH (10:07)
[2017-01-14] MEDS: CHOLECALCIFEROL (VITAMIN D3) 1,000 UNIT TABLET (FP) PO SCH (10:07)
[2017-01-14] MEDS: ASCORBIC ACID 500 MG TABLET (FP) PO SCH (10:07)
[2017-01-14] MEDS: LIDOCAINE 5% TOPICAL PATCH TP SCH (10:08)
[2017-01-14] MEDS: FERROUS GLUCONATE 324 MG TAB (FP) PO SCH (10:10)
[2017-01-14] MEDS: ACLIDINIUM BROMIDE 400 MCG/INH AERO.POWD IH SCH ×2 (10:11→21:30)
[2017-01-14] MEDS: BUDESONIDE/FORMETEROL FUMARATE 160/4.5 mcg INHALER IH SCH (10:11)
--- NOTE | 2017-01-14 15:39 | PN ---
Progress Note, Physician History of Present Illness: PULMONARY ALERT,LESS DYSPNEIC,O2 SAT 93% ON NASAL O2 - Current Medication List Current Medications: Active Medications Acetaminophen (Tylenol -) 650 mg PO Q6H PRN PRN Reason: PAIN Aclidinium [place] (Tudorza -) 1 puff IH BID [facility] Last Admin: 01/14/17 10:11 Dose: 1 puff Ascorbic Acid (Vitamin C -) 500 mg PO DAILY [facility] Last Admin: 01/14/17 10:07 Dose: 500 mg Aspirin (Ecotrin -) 81 mg PO DAILY [facility] Last Admin: 01/14/17 10:06 Dose: 81 mg Atorvastatin Calcium (Lipitor -) 10 mg PO HS [facility] Last Admin: 01/13/17 23:10 Dose: 10 mg Budesonide/Formoterol Fumarate (Symbicort 160/4.5mcg -) 2 puff IH DAILY [facility] Last Admin: 01/14/17 10:11 Dose: 2 puff Cholecalciferol (Vitamin D3 -) 1,000 unit PO DAILY [facility] Last Admin: 01/14/17 10:07 Dose: 1,000 unit Cyanocobalamin (Vitamin B12 -) 1,000 mcg PO DAILY [facility] Last Admin: 01/14/17 10:07 Dose: 1,000 mcg Ezetimibe (Zetia -) 10 mg PO HS [facility] Last Admin: 01/13/17 23:10 Dose: 10 mg Ferrous Gluconate (Fergon -) 324 mg PO DAILY [facility] Last Admin: 01/14/17 10:10 Dose: 324 mg Furosemide (Lasix -) 40 mg PO DAILY [facility] Last Admin: 01/14/17 10:07 Dose: 40 mg Glyburide (Diabeta -) 2.5 mg PO BIDAC [facility] Last Admin: 01/14/17 08:31 Dose: 2.5 mg Lidocaine (Lidoderm Patch -) 1 patch TP DAILY [facility] Last Admin: 01/14/17 10:08 Dose: 1 patch Losartan Potassium (Cozaar -) 50 mg PO DAILY [facility] Last Admin: 01/14/17 10:05 Dose: 50 mg Meclizine HCl (Antivert -) 25 mg PO Q6H PRN PRN Reason: BACK PAIN Metformin HCl (Glucophage -) 500 mg PO DAILY@0700 [facility] Last Admin: 01/14/17 08:45 Dose: Not Given Metoprolol Succinate (Toprol Xl -) [address] [facility] Last Admin: 01/13/17 23:10 Dose: 50 mg Pregabalin (Lyrica -) [address] [facility] Last Admin: 01/13/17 23:09 Dose: 100 mg - Objective Vital Signs: Vital Signs Temperature 98.3 F 01/14/17 14:11 Pulse Rate 83 01/14/17 14:11 Respiratory Rate 20 01/14/17 14:11 Blood Pressure 123/62 01/14/17 14:11 O2 Sat by Pulse Oximetry (%) 90 L 01/14/17 09:00 Constitutional: Yes: Well Nourished, Calm Eyes: Yes: WNL HENT: Yes: WNL Neck: Yes: WNL Cardiovascular: Yes: Regular Rate and Rhythm, S1, S2 Respiratory: Yes: Diminished Gastrointestinal: Yes: Normal Bowel Sounds, Soft Extremities: Yes: WNL Edema: Yes Edema: LLE: Trace Labs: INR, PTT INR 1.28 (0.82-1.09) H 01/13/17 15:40 - ....Imaging Cat Scan: Report Reviewed, Image Reviewed (+CONGESTION,JORDY EFFUSIONS) Assessment/Plan Problem List - Problems (1) SOB (shortness of breath) Code(s): R06.02 - SHORTNESS OF BREATH (2) Anemia Code(s): D64.9 - ANEMIA, UNSPECIFIED Qualifiers: (3) CAD (coronary artery disease) Code(s): I25.10 - ATHSCL HEART DISEASE OF [place] CORONARY ARTERY W/O ANG PCTRS Qualifiers: (4) COPD (chronic obstructive pulmonary disease) Code(s): J44.9 - CHRONIC OBSTRUCTIVE PULMONARY DISEASE, UNSPECIFIED Qualifiers : (5) Diabetes Code(s): E11.9 - TYPE 2 DIABETES MELLITUS WITHOUT COMPLICATIONS Qualifiers: CHF Assessment/Plan O2 SUPPLEMENTATION INHALED BRONCHODILATORS CONTINUE HOME MEDS PRE/POST AMB SPO2 ON R/A WILL LIKELY NEED HOME O2 CONSULT DR TIMMY SMITH
--- NOTE | 2017-01-14 16:20 | CON.CARD ---
Consult Consult Specialty:: Cardiology Referred by:: Cody Adorno MD Reason for Consultation:: Dyspnea - History of Present Illness Chief Complaint: Dyspnea History of Present Illness: The patient is a 76 year old female with significant past medical history of hypertension, hyperlipidemia, CAD s/p MS, diastolic dysfunction, carotid stenosis s/p CEA, diabetes, COPD recent admission for anemia referable to duodenal bleeding post cautery presented to the ED with with SOB exacerbated by exertion and orthopnea. She denies true syncope, chest pain, palpitations, PND or LE edema. CT scan shows pulm vascular congestion and pleural effusions. 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 No: Alzheimer's, Seizure, Syncope, TIA Cardio/Vascular: Yes: HTN, Hyperlipdemia, [place] Pulmonary: Yes: COPD. No: O2 Dependent Gastrointestinal: Yes: Diverticulosis, Hemorrhoids Hepatobiliary: Yes: Other (HSM) Musculoskeletal: Yes: Osteoarthritis. 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), in apartment with 20 steps total to enter (3 into building, 4 to lobby, then 7x2 to apartment), previously Independent in ADLs, ambulated with [place]) ADL: Independent History of Recent Travel: No Home Medications - Allergies Allergies/Adverse Reactions: Allergies Allergy/AdvReac Type Severity Reaction Status Date / Time No Known Drug Allergies Allergy Verified 01/13/17 15:20 - Home Medications Home Medications: Ambulatory Orders Aspirin Coated [Ecotrin -] 81 mg PO DAILY 05/03/12 Ezetimibe/Simvastatin [Vytorin 10-20 mg Tablet] 1 each PO HS 05/03/12 Ferrous Gluconate 325 mg PO DAILY 05/03/12 Glyburide 2.5 mg PO BID 05/03/12 Metoprolol Succinate [Toprol XL -] 50 mg PO HS 05/03/12 Pregabalin [Lyrica] 100 mg PO HS 05/03/12 Budesonide/Formeterol Fumarate [SYMBICORT 160/4.5mcg -] 2 inh PO DAILY 12/31/13 Metformin HCl [Glucophage -] 500 mg PO DAILY 12/31/13 Meclizine HCl [Antivert -] 25 mg PO Q6H PRN #0 tablet 01/02/14 Tiotropium [place] [Spiriva] 1 inh PO DAILY #1 01/02/14 Cholecalciferol (Vitamin D3) [Vitamin D3] 1,000 unit PO DAILY 06/18/14 Cyanocobalamin [Vitamin B12 -] 1,000 mcg PO DAILY 06/18/14 Acetaminophen [Tylenol] 650 mg PO Q6H PRN 12/09/16 Lidocaine 5% Patch [Lidoderm Patch -] 1 patch TP HS 12/09/16 Ascorbate Calcium [Vitamin C] 500 mg PO DAILY 01/13/17 Losartan Potassium 50 mg PO DAILY 01/13/17 Pantoprazole Sodium 40 mg PO DAILY 01/13/17 Review of Systems - Review of Systems Respiratory: reports: SOB on Exertion Vital Signs: Vital Signs Temperature 98.3 F 01/14/17 14:11 Pulse Rate 83 01/14/17 14:11 Respiratory Rate 20 01/14/17 14:11 Blood Pressure 123/62 01/14/17 14:11 O2 Sat by Pulse Oximetry (%) 90 L 01/14/17 09:00 Constitutional: Yes: No Distress, Calm Neck: Yes: Supple Respiratory: Yes: Regular, Diminished, On Nasal O2 Gastrointestinal: Yes: Normal Bowel Sounds, Soft, Abdomen, Obese Cardiovascular: Yes: Regular Rate and Rhythm JVD: No Carotid Bruit: No Heart Sounds: Yes: S1, S2 Edema: No - Other Data Labs, Other Data: INR, PTT INR 1.28 (0.82-1.09) H 01/13/17 15:40 NSR 98 RBBB Imaging - Results Cat Scan: Report Reviewed (Vascular congestion, small right effusion, cardiomegaly, pulm HTN, right basilar ATX, hepatic cirrhosis and splenomagaly) Problem List - Problems (1) SOB (shortness of breath) Code(s): R06.02 - SHORTNESS OF BREATH (2) CAD (coronary artery disease) Code(s): I25.10 - ATHSCL HEART DISEASE OF [place] CORONARY ARTERY W/O ANG PCTRS Qualifiers: Coronary Disease-Associated Artery/Lesion type: [place] artery [place] vs. transplanted heart: [place] heart Associated angina: without angina Qualified Code(s): I25.10 - Atherosclerotic heart disease of [place] coronary artery without angina pectoris (3) COPD (chronic obstructive pulmonary disease) Code(s): J44.9 - CHRONIC OBSTRUCTIVE PULMONARY DISEASE, UNSPECIFIED Qualifiers : Chronic bronchitis type: unspecified (4) Diabetes Code(s): E11.9 - TYPE 2 DIABETES MELLITUS WITHOUT COMPLICATIONS Qualifiers: Diabetes mellitus type: type 2 (5) HTN (hypertension) Code(s): I10 - ESSENTIAL (PRIMARY) HYPERTENSION Qualifiers: Hypertension type: essential hypertension Qualified Code(s): I10 - Essential (primary) hypertension (6) Hypercholesterolemia Code(s): E78.0 - PURE HYPERCHOLESTEROLEMIA * DO NOT USE * (7) Acute on chronic diastolic (congestive) heart failure Code(s): I50.33 - ACUTE ON CHRONIC DIASTOLIC (CONGESTIVE) HEART FAILURE Assessment/Plan 12/10/2015 Echo: Normal LV size and fxn, mild MR, mod TR, mild , mild PS, RVSO 40-50 mmHg 12/10/2016 Echo: Mod cLVH, normal LV fxn, mild LAE, mod TR, mild MR, mod , mild PS, RVSP 40-50 mmHg 1. Acute on chronic diastolic failure 2. Recent anemia referable to duodenal bleeding post-epinephrine injections, cautery and endoclipping 2. CAD h/o demand ischemia 3. HTN/HCVD 4. Aortic valve disease/ - moderate 5. COPD 6. NIDDM 7. Hypercholesterolemia 8. Carotid artery disease s/p CEA 9. Vitamin D deficiency 10. Thrombocytopenia PLAN: 1. IV diuresis with monitor diuretic response, renal fxn and electrolytes, replete K 2. Continue Metoprolol 50 qd and Losartan 50 qd as hemodynamics tolerates 3. Continue Lipitor 10 qd, Zetia 10 qd 4. BD as needed, O2 5. Thank you for consultative opportunity
[2017-01-14] MEDS: FUROSEMIDE 40 MG/4 ML INJECTABLE VIAL IVPUSH SCH (17:56)
[2017-01-14] MEDS: PREGABALIN 50 MG CAPSULE PO SCH (21:30)
[2017-01-14] MEDS: ATORVASTATIN CA 10 MG TABLET (FP) PO SCH (21:30)
[2017-01-14] MEDS: METOPROLOL SUCCINATE 50 MG TAB.SR.24H (FP) PO SCH (21:30)
[2017-01-14] MEDS: EZETIMIBE 10 MG TABLET (FP) PO SCH (21:30)
[2017-01-15] MEDS: glyBURIDE 2.5 MG TABLET (FP) PO SCH ×2 (06:45→19:03)
[2017-01-15] MEDS: FUROSEMIDE 40 MG/4 ML INJECTABLE VIAL IVPUSH SCH ×2 (06:45→14:00)
[2017-01-15] MEDS: metFORMIN HCL 500 MG TABLET (FP) PO SCH (06:46)
[2017-01-15 07:57] LABS: CALCIUM 8.3 mg/dL (8.5-10.1)
[2017-01-15 08:01] LABS: CREATININE 0.8 mg/dL (0.55-1.02); MAGNESIUM 1.7 mg/dL (1.8-2.4)
[2017-01-15] MEDS: CHOLECALCIFEROL (VITAMIN D3) 1,000 UNIT TABLET (FP) PO SCH (09:58)
[2017-01-15] MEDS: LIDOCAINE 5% TOPICAL PATCH TP SCH (09:58)
[2017-01-15] MEDS: POTASSIUM CHLORIDE TABS 10 MEQ TABLET.ER (FP) PO SCH (09:58)
[2017-01-15] MEDS: ASCORBIC ACID 500 MG TABLET (FP) PO SCH (09:58)
[2017-01-15] MEDS: BUDESONIDE/FORMETEROL FUMARATE 160/4.5 mcg INHALER IH SCH (10:04)
[2017-01-15] MEDS: CYANOCOBALAMIN 1,000 MCG TABLET (FP) PO SCH (10:04)
[2017-01-15] MEDS: LOSARTAN POTASSIUM 50 MG TABLET (FP) PO SCH (10:04)
[2017-01-15] MEDS: FERROUS GLUCONATE 324 MG TAB (FP) PO SCH (10:04)
[2017-01-15] MEDS: ASPIRIN 325 MG ENTERIC COATED TABLET (FP) PO SCH (10:04)
[2017-01-15] MEDS: ACLIDINIUM BROMIDE 400 MCG/INH AERO.POWD IH SCH ×2 (10:04→21:08)
--- NOTE | 2017-01-15 11:38 | PN ---
Progress Note (short form) - Note Progress Note: Breathing feels a little better today. Less SOB and cough. No CP. (+) frequent urination from Lasix. Intake & Output 01/12/17 01/13/17 01/14/17 01/15/17 23:59 23:59 23:59 23:59 Intake Total 300 1100 300 Balance 300 1100 300 Weight 209 lb 11.2 oz Last Vital Signs Temp Pulse Resp BP Pulse Ox 98.6 F 93 H 20 125/64 91 L 01/14/17 18:12 01/14/17 18:12 01/15/17 04:00 01/14/17 18:12 01/15/17 04:00 Active Medications Acetaminophen (Tylenol -) 650 mg PO Q6H PRN PRN Reason: PAIN Aclidinium [place] (Tudorza -) 1 puff IH BID [facility] Last Admin: 01/15/17 10:04 Dose: 1 puff Ascorbic Acid (Vitamin C -) 500 mg PO DAILY [facility] Last Admin: 01/15/17 09:58 Dose: 500 mg Aspirin (Ecotrin -) 81 mg PO DAILY [facility] Last Admin: 01/15/17 10:04 Dose: 81 mg Atorvastatin Calcium (Lipitor -) 10 mg PO HS [facility] Last Admin: 01/14/17 21:30 Dose: 10 mg Budesonide/Formoterol Fumarate (Symbicort 160/4.5mcg -) 2 puff IH DAILY [facility] Last Admin: 01/15/17 10:04 Dose: 2 puff Cholecalciferol (Vitamin D3 -) 1,000 unit PO DAILY [facility] Last Admin: 01/15/17 09:58 Dose: 1,000 unit Cyanocobalamin (Vitamin B12 -) 1,000 mcg PO DAILY [facility] Last Admin: 01/15/17 10:04 Dose: 1,000 mcg Ezetimibe (Zetia -) 10 mg PO HS [facility] Last Admin: 01/14/17 21:30 Dose: 10 mg Ferrous Gluconate (Fergon -) 324 mg PO DAILY [facility] Last Admin: 01/15/17 10:04 Dose: 324 mg Furosemide (Lasix Injection -) 40 mg IVPUSH BID@0600,1400 [facility] Last Admin: 01/15/17 06:45 Dose: 40 mg Glyburide (Diabeta -) 2.5 mg PO BIDAC [facility] Last Admin: 01/15/17 06:45 Dose: 2.5 mg Lidocaine (Lidoderm Patch -) 1 patch TP DAILY [facility] Last Admin: 01/15/17 09:58 Dose: 1 patch Losartan Potassium (Cozaar -) 50 mg PO DAILY [facility] Last Admin: 01/15/17 10:04 Dose: 50 mg Meclizine HCl (Antivert -) 25 mg PO Q6H PRN PRN Reason: BACK PAIN Metformin HCl (Glucophage -) 500 mg PO DAILY@0700 [facility] Last Admin: 01/15/17 06:46 Dose: Not Given Metoprolol Succinate (Toprol Xl -) 50 mg PO [facility] Last Admin: 01/14/17 21:30 Dose: 50 mg Potassium Chloride (K-Dur -) 30 meq PO DAILY [facility] Last Admin: 01/15/17 09:58 Dose: 30 meq Pregabalin (Lyrica -) 100 mg PO [facility] Last Admin: 01/14/17 21:30 Dose: 100 mg Constitutional: Yes: Well Nourished, NAD Eyes: Yes: WNL HENT: Yes: WNL Neck: Yes: WNL Cardiovascular: Yes: Regular Rate and Rhythm, S1, S2 Respiratory: Yes: Diminished, few rhonchi Gastrointestinal: Yes: Normal Bowel Sounds, Soft Extremities: Yes: WNL Edema: Yes Edema: LLE: Trace Labs: Laboratory Results - last 24 hr 01/14/17 01/15/17 01/15/17 21:35 06:00 06:16 Sodium 146 H Potassium 3.1 L Chloride 104 Carbon Dioxide 34 H D Anion Gap 8 BUN 9 Creatinine 0.8 POC Glucometer 121 140 Random Glucose 137 H Calcium 8.3 L Magnesium 1.7 L Assessment/Plan Problem List - Problems (1) SOB (shortness of breath) Code(s): R06.02 - SHORTNESS OF BREATH (2) Anemia Code(s): D64.9 - ANEMIA, UNSPECIFIED Qualifiers: (3) CAD (coronary artery disease) Code(s): I25.10 - ATHSCL HEART DISEASE OF [place] CORONARY ARTERY W/O ANG PCTRS Qualifiers: (4) COPD (chronic obstructive pulmonary disease) Code(s): J44.9 - CHRONIC OBSTRUCTIVE PULMONARY DISEASE, UNSPECIFIED Qualifiers : (5) Diabetes Code(s): E11.9 - TYPE 2 DIABETES MELLITUS WITHOUT COMPLICATIONS Qualifiers: CHF Assessment/Plan O2 SUPPLEMENTATION INHALED BRONCHODILATORS CONTINUE HOME MEDS PRE/POST AMB SPO2 ON R/A WILL LIKELY NEED HOME O2 CONSULT DR TIMMY Marks
[2017-01-15] MEDS ORDERED: MAGNESIUM SULF 50% (8.12 MEQ/2 ML-1 GM VIAL) IVPB ONE (12:00)
--- NOTE | 2017-01-15 13:42 | PN ---
Progress Note, Physician Chief Complaint: Events noted Feels better History of Present Illness: Patient was seen and examined. Awake and alert. Chart was reviewed Denies chest pain, less SOB , no palpitations - Current Medication List Current Medications: Active Medications Acetaminophen (Tylenol -) 650 mg PO Q6H PRN PRN Reason: PAIN Aclidinium [place] (Tudorza -) 1 puff IH BID [facility] Last Admin: 01/15/17 10:04 Dose: 1 puff Ascorbic Acid (Vitamin C -) 500 mg PO DAILY [facility] Last Admin: 01/15/17 09:58 Dose: 500 mg Aspirin (Ecotrin -) 81 mg PO DAILY [facility] Last Admin: 01/15/17 10:04 Dose: 81 mg Atorvastatin [place] (Lipitor -) 10 mg PO HS [facility] Last Admin: 01/14/17 21:30 Dose: 10 mg Budesonide/Formoterol Fumarate (Symbicort 160/4.5mcg -) 2 puff IH DAILY [facility] Last Admin: 01/15/17 10:04 Dose: 2 puff Cholecalciferol (Vitamin D3 -) 1,000 unit PO DAILY [facility] Last Admin: 01/15/17 09:58 Dose: 1,000 unit Cyanocobalamin (Vitamin B12 -) 1,000 mcg PO DAILY [facility] Last Admin: 01/15/17 10:04 Dose: 1,000 mcg Ezetimibe (Zetia -) 10 mg PO HS [facility] Last Admin: 01/14/17 21:30 Dose: 10 mg Ferrous Gluconate (Fergon -) 324 mg PO DAILY [facility] Last Admin: 01/15/17 10:04 Dose: 324 mg Furosemide (Lasix Injection -) 40 mg IVPUSH BID@0600,1400 [facility] Last Admin: 01/15/17 06:45 Dose: 40 mg Glyburide (Diabeta -) 2.5 mg PO BIDAC [facility] Last Admin: 01/15/17 06:45 Dose: 2.5 mg Lidocaine (Lidoderm Patch -) 1 patch TP DAILY [facility] Last Admin: 01/15/17 09:58 Dose: 1 patch Losartan Potassium (Cozaar -) 50 mg PO DAILY [facility] Last Admin: 01/15/17 10:04 Dose: 50 mg Meclizine HCl (Antivert -) 25 mg PO Q6H PRN PRN Reason: BACK PAIN Metformin HCl (Glucophage -) 500 mg PO DAILY@0700 [facility] Last Admin: 01/15/17 06:46 Dose: Not Given Metoprolol Succinate (Toprol Xl -) 50 mg PO [facility] Last Admin: 01/14/17 21:30 Dose: 50 mg Potassium Chloride (K-Dur -) 30 meq PO DAILY [facility] Last Admin: 01/15/17 09:58 Dose: 30 meq Potassium Chloride (K-Dur -) 40 meq PO ONCE ONE Stop: 01/15/17 18:01 Pregabalin (Lyrica -) 100 mg PO [facility] Last Admin: 01/14/17 21:30 Dose: 100 mg - Objective Vital Signs: Vital Signs Temperature 98.6 F 01/14/17 18:12 Pulse Rate 93 H 01/14/17 18:12 Respiratory Rate 20 01/15/17 04:00 Blood Pressure 125/64 01/14/17 18:12 O2 Sat by Pulse Oximetry (%) 91 L 01/15/17 04:00 Neck: Yes: Supple Cardiovascular: Yes: Regular Rate and Rhythm, S1, S2 Respiratory: Yes: Diminished Gastrointestinal: Yes: Normal Bowel Sounds, Soft. No: Tenderness Edema: No Labs: CBC, BMP 01/15/17 06:00 INR, PTT INR 1.28 (0.82-1.09) H 01/13/17 15:40 Problem List - Problems (1) Acute on chronic diastolic (congestive) heart failure Code(s): I50.33 - ACUTE ON CHRONIC DIASTOLIC (CONGESTIVE) HEART FAILURE (2) SOB (shortness of breath) Code(s): R06.02 - SHORTNESS OF BREATH (3) Anemia Code(s): D64.9 - ANEMIA, UNSPECIFIED Qualifiers: (4) CAD (coronary artery disease) Code(s): I25.10 - ATHSCL HEART DISEASE OF [place] CORONARY ARTERY W/O ANG PCTRS Qualifiers: Coronary Disease-Associated Artery/Lesion type: [place] artery [place] vs. transplanted heart: [place] heart Associated angina: without angina Qualified Code(s): I25.10 - Atherosclerotic heart disease of [place] coronary artery without angina pectoris (5) COPD (chronic obstructive pulmonary disease) Code(s): J44.9 - CHRONIC OBSTRUCTIVE PULMONARY DISEASE, UNSPECIFIED Qualifiers : Chronic bronchitis type: unspecified (6) Demand ischemia Code(s): I24.8 - OTHER FORMS OF ACUTE ISCHEMIC HEART DISEASE (7) Diabetes Code(s): E11.9 - TYPE 2 DIABETES MELLITUS WITHOUT COMPLICATIONS Qualifiers: Diabetes mellitus type: type 2 (8) HTN (hypertension) Code(s): I10 - ESSENTIAL (PRIMARY) HYPERTENSION Qualifiers: Hypertension type: essential hypertension Qualified Code(s): I10 - Essential (primary) hypertension (9) Hypercholesterolemia Code(s): E78.0 - PURE HYPERCHOLESTEROLEMIA * DO NOT USE * Assessment/Plan 1. Acute on chronic diastolic failure 2. Recent anemia referable to duodenal bleeding post-epinephrine injections, cautery and endoclipping 2. CAD h/o demand ischemia 3. HTN/HCVD 4. Aortic valve disease/ - moderate 5. COPD 6. NIDDM 7. Hypercholesterolemia 8. Carotid artery disease s/p CEA 9. Vitamin D deficiency 10. Thrombocytopenia PLAN: 1. IV diuresis with monitoring renal function and electrolytes and replete K 2. Continue Metoprolol 50 qd and Losartan 50 qd as hemodynamics tolerates 3. Continue Lipitor 10 qd and Zetia 10 qd 4. Bronchodilators as needed and O2 Further plans are to follow Noam Pereira MD
[2017-01-15] MEDS ORDERED: ASPIRIN COATED 81 MG TABLET.EC PO SCH (14:12)
[2017-01-15] MEDS ORDERED: POTASSIUM CHLORIDE TABS 20 MEQ TABLET.ER (FP) PO ONE (18:00)
[2017-01-15] MEDS: ASPIRIN COATED 81 MG TABLET.EC PO SCH (18:53)
[2017-01-15] MEDS: PREGABALIN 50 MG CAPSULE PO SCH (21:06)
[2017-01-15] MEDS: EZETIMIBE 10 MG TABLET (FP) PO SCH (21:06)
[2017-01-15] MEDS: METOPROLOL SUCCINATE 50 MG TAB.SR.24H (FP) PO SCH (21:06)
[2017-01-15] MEDS: ATORVASTATIN CA 10 MG TABLET (FP) PO SCH (21:06)
[2017-01-16] MEDS: metFORMIN HCL 500 MG TABLET (FP) PO SCH (06:50)
[2017-01-16] MEDS: FUROSEMIDE 40 MG/4 ML INJECTABLE VIAL IVPUSH SCH ×2 (06:50→17:43)
[2017-01-16] MEDS: glyBURIDE 2.5 MG TABLET (FP) PO SCH ×2 (06:50→17:36)
[2017-01-16 08:04] LABS: CALCIUM 8.2 mg/dL (8.5-10.1); CREATININE 0.7 mg/dL (0.55-1.02)
[2017-01-16] MEDS: CYANOCOBALAMIN 1,000 MCG TABLET (FP) PO SCH (09:45)
[2017-01-16] MEDS: POTASSIUM CHLORIDE TABS 10 MEQ TABLET.ER (FP) PO SCH (09:45)
[2017-01-16] MEDS: CHOLECALCIFEROL (VITAMIN D3) 1,000 UNIT TABLET (FP) PO SCH (09:45)
[2017-01-16] MEDS: ASPIRIN COATED 81 MG TABLET.EC PO SCH (09:45)
[2017-01-16] MEDS: ASCORBIC ACID 500 MG TABLET (FP) PO SCH (09:45)
[2017-01-16] MEDS: LOSARTAN POTASSIUM 50 MG TABLET (FP) PO SCH (09:46)
[2017-01-16] MEDS: FERROUS GLUCONATE 324 MG TAB (FP) PO SCH (09:46)
[2017-01-16] MEDS: LIDOCAINE 5% TOPICAL PATCH TP SCH (09:47)
[2017-01-16] MEDS: BUDESONIDE/FORMETEROL FUMARATE 160/4.5 mcg INHALER IH SCH (09:48)
[2017-01-16] MEDS: ACLIDINIUM BROMIDE 400 MCG/INH AERO.POWD IH SCH ×2 (09:48→21:01)
--- NOTE | 2017-01-16 11:10 | PN ---
Progress Note (short form) - Note Progress Note: Breathing feels a little better today. Less SOB and cough. No CP. Reports that saturation went down to 78% while ambulating on RA yesterday. Intake & Output 01/13/17 01/14/17 01/15/17 01/16/17 23:59 23:59 23:59 23:59 Intake Total 300 1100 300 Balance 300 1100 300 Weight 209 lb 11.2 oz Last Vital Signs Temp Pulse Resp BP Pulse Ox 98.2 F 77 20 102/61 92 L 01/16/17 07:52 01/16/17 07:52 01/16/17 07:52 01/16/17 07:52 01/16/17 06:00 Active Medications Acetaminophen (Tylenol -) 650 mg PO Q6H PRN PRN Reason: PAIN Aclidinium [place] (Tudorza -) 1 puff IH BID [facility] Last Admin: 01/16/17 09:48 Dose: 1 puff Ascorbic Acid (Vitamin C -) 500 mg PO DAILY [facility] Last Admin: 01/16/17 09:45 Dose: 500 mg Aspirin (Ecotrin -) 81 mg PO DAILY [facility] Last Admin: 01/16/17 09:45 Dose: 81 mg Atorvastatin Calcium (Lipitor -) 10 mg PO HS [facility] Last Admin: 01/15/17 21:06 Dose: 10 mg Budesonide/Formoterol Fumarate (Symbicort 160/4.5mcg -) 2 puff IH DAILY [facility] Last Admin: 01/16/17 09:48 Dose: 2 puff Cholecalciferol (Vitamin D3 -) 1,000 unit PO DAILY [facility] Last Admin: 01/16/17 09:45 Dose: 1,000 unit Cyanocobalamin (Vitamin B12 -) 1,000 mcg PO DAILY [facility] Last Admin: 01/16/17 09:45 Dose: 1,000 mcg Ezetimibe (Zetia -) 10 mg PO HS [facility] Last Admin: 01/15/17 21:06 Dose: 10 mg Ferrous Gluconate (Fergon -) 324 mg PO DAILY [facility] Last Admin: 01/16/17 09:46 Dose: 324 mg Furosemide (Lasix Injection -) 40 mg IVPUSH BID@0600,1400 [facility] Last Admin: 01/16/17 06:50 Dose: 40 mg Glyburide (Diabeta -) 2.5 mg PO BIDAC [facility] Last Admin: 01/16/17 06:50 Dose: 2.5 mg Lidocaine (Lidoderm Patch -) 1 patch TP DAILY [facility] Last Admin: 01/16/17 09:47 Dose: 1 patch Losartan Potassium (Cozaar -) 50 mg PO DAILY [facility] Last Admin: 01/16/17 09:46 Dose: 50 mg Meclizine HCl (Antivert -) 25 mg PO Q6H PRN PRN Reason: BACK PAIN Metformin HCl (Glucophage -) 500 mg PO DAILY@0700 [facility] Last Admin: 01/16/17 06:50 Dose: Not Given Metoprolol Succinate (Toprol Xl -) 50 mg PO HS [facility] Last Admin: 01/15/17 21:06 Dose: 50 mg Potassium Chloride (K-Dur -) 30 meq PO DAILY [facility] Last Admin: 01/16/17 09:45 Dose: 30 meq Pregabalin (Lyrica -) 100 mg PO HS [facility] Last Admin: 01/15/17 21:06 Dose: 100 mg Constitutional: Yes: Well Nourished, NAD Eyes: Yes: WNL HENT: Yes: WNL Neck: Yes: WNL Cardiovascular: Yes: Regular Rate and Rhythm, S1, S2 Respiratory: Yes: Diminished, few rhonchi Gastrointestinal: Yes: Normal Bowel Sounds, Soft Extremities: Yes: WNL Edema: Yes Edema: LLE: Trace Labs: Laboratory Results - last 24 hr 01/15/17 01/16/17 01/16/17 21:06 06:15 06:49 Sodium 147 H Potassium 3.5 Chloride 104 Carbon Dioxide 35 H Anion Gap 8 BUN 7 D Creatinine 0.7 POC Glucometer 142 127 Random Glucose 128 H Calcium 8.2 L Assessment/Plan Problem List - Problems (1) SOB (shortness of breath) Code(s): R06.02 - SHORTNESS OF BREATH (2) Anemia Code(s): D64.9 - ANEMIA, UNSPECIFIED Qualifiers: (3) CAD (coronary artery disease) Code(s): I25.10 - ATHSCL HEART DISEASE OF [place] CORONARY ARTERY W/O ANG PCTRS Qualifiers: (4) COPD (chronic obstructive pulmonary disease) Code(s): J44.9 - CHRONIC OBSTRUCTIVE PULMONARY DISEASE, UNSPECIFIED Qualifiers : (5) Diabetes Code(s): E11.9 - TYPE 2 DIABETES MELLITUS WITHOUT COMPLICATIONS Qualifiers: CHF Assessment/Plan O2 SUPPLEMENTATION SYMBICORT BID TUDORZA BID INHALED BRONCHODILATORS PRN CONTINUE HOME MEDS WILL LIKELY NEED HOME O2 LASIX BID SCDS DR CHAN
--- NOTE | 2017-01-16 16:09 | PN ---
Progress Note, Physician Chief Complaint: Events noted Clinically improving History of Present Illness: Patient was seen and examined. Awake and alert. Chart was reviewed Denies chest pain, less SOB and no palpitations - Current Medication List Current Medications: Active Medications Acetaminophen (Tylenol -) 650 mg PO Q6H PRN PRN Reason: PAIN Aclidinium [place] (Tudorza -) 1 puff IH BID [facility] Last Admin: 01/16/17 09:48 Dose: 1 puff Ascorbic Acid (Vitamin C -) 500 mg PO DAILY [facility] Last Admin: 01/16/17 09:45 Dose: 500 mg Aspirin (Ecotrin -) 81 mg PO DAILY [facility] Last Admin: 01/16/17 09:45 Dose: 81 mg Atorvastatin Calcium (Lipitor -) 10 mg PO HS [facility] Last Admin: 01/15/17 21:06 Dose: 10 mg Budesonide/Formoterol Fumarate (Symbicort 160/4.5mcg -) 2 puff IH DAILY [facility] Last Admin: 01/16/17 09:48 Dose: 2 puff Cholecalciferol (Vitamin D3 -) 1,000 unit PO DAILY [facility] Last Admin: 01/16/17 09:45 Dose: 1,000 unit Cyanocobalamin (Vitamin B12 -) 1,000 mcg PO DAILY [facility] Last Admin: 01/16/17 09:45 Dose: 1,000 mcg Ezetimibe (Zetia -) 10 mg PO HS [facility] Last Admin: 01/15/17 21:06 Dose: 10 mg Ferrous Gluconate (Fergon -) 324 mg PO DAILY [facility] Last Admin: 01/16/17 09:46 Dose: 324 mg Furosemide (Lasix Injection -) 40 mg IVPUSH BID@0600,1400 [facility] Last Admin: 01/16/17 06:50 Dose: 40 mg Glyburide (Diabeta -) 2.5 mg PO BIDAC [facility] Last Admin: 01/16/17 06:50 Dose: 2.5 mg Lidocaine (Lidoderm Patch -) 1 patch TP DAILY [facility] Last Admin: 01/16/17 09:47 Dose: 1 patch Losartan Potassium (Cozaar -) 50 mg PO DAILY [facility] Last Admin: 01/16/17 09:46 Dose: 50 mg Meclizine HCl (Antivert -) 25 mg PO Q6H PRN PRN Reason: BACK PAIN Metformin HCl (Glucophage -) 500 mg PO DAILY@0700 [facility] Last Admin: 01/16/17 06:50 Dose: Not Given Metoprolol Succinate (Toprol Xl -) 50 mg PO [facility] Last Admin: 01/15/17 21:06 Dose: 50 mg Potassium Chloride (K-Dur -) 30 meq PO DAILY [facility] Last Admin: 01/16/17 09:45 Dose: 30 meq Pregabalin (Lyrica -) 100 mg PO [facility] Last Admin: 01/15/17 21:06 Dose: 100 mg - Objective Vital Signs: Vital Signs Temperature 97.8 F 01/16/17 14:54 Pulse Rate 76 01/16/17 14:54 Respiratory Rate 20 01/16/17 14:54 Blood Pressure 126/74 01/16/17 14:54 O2 Sat by Pulse Oximetry (%) 92 L 01/16/17 10:00 Neck: Yes: Supple Cardiovascular: Yes: Regular Rate and Rhythm, S1, S2 Respiratory: Yes: CTA Bilaterally, Diminished Gastrointestinal: Yes: Normal Bowel Sounds, Soft. No: Tenderness Edema: No Labs: CBC, BMP 01/16/17 06:15 INR, PTT INR 1.28 (0.82-1.09) H 01/13/17 15:40 Problem List - Problems (1) Acute on chronic diastolic (congestive) heart failure Code(s): I50.33 - ACUTE ON CHRONIC DIASTOLIC (CONGESTIVE) HEART FAILURE (2) SOB (shortness of breath) Code(s): R06.02 - SHORTNESS OF BREATH (3) Anemia Code(s): D64.9 - ANEMIA, UNSPECIFIED Qualifiers: (4) CAD (coronary artery disease) Code(s): I25.10 - ATHSCL HEART DISEASE OF [place] CORONARY ARTERY W/O ANG PCTRS Qualifiers: Coronary Disease-Associated Artery/Lesion type: [place] artery [place] vs. transplanted heart: [place] heart Associated angina: without angina Qualified Code(s): I25.10 - Atherosclerotic heart disease of [place] coronary artery without angina pectoris (5) COPD (chronic obstructive pulmonary disease) Code(s): J44.9 - CHRONIC OBSTRUCTIVE PULMONARY DISEASE, UNSPECIFIED Qualifiers : Chronic bronchitis type: unspecified (6) Demand ischemia Code(s): I24.8 - OTHER FORMS OF ACUTE ISCHEMIC HEART DISEASE (7) Diabetes Code(s): E11.9 - TYPE 2 DIABETES MELLITUS WITHOUT COMPLICATIONS Qualifiers: Diabetes mellitus type: type 2 (8) HTN (hypertension) Code(s): I10 - ESSENTIAL (PRIMARY) HYPERTENSION Qualifiers: Hypertension type: essential hypertension Qualified Code(s): I10 - Essential (primary) hypertension (9) Hypercholesterolemia Code(s): E78.0 - PURE HYPERCHOLESTEROLEMIA * DO NOT USE * Assessment/Plan 1. Acute on chronic diastolic failure 2. Recent anemia referable to duodenal bleeding post-epinephrine injections, cautery and endoclipping 2. CAD h/o demand ischemia 3. HTN/HCVD 4. Aortic valve disease/ - moderate 5. COPD 6. NIDDM 7. Hypercholesterolemia 8. Carotid artery disease s/p CEA 9. Vitamin D deficiency 10. Thrombocytopenia PLAN: 1. IV diuresis with monitoring renal function and electrolytes and replete K - cosider switching to PO regimen 2. Continue Metoprolol 50 qd and Losartan 50 qd as hemodynamics tolerates 3. Continue Lipitor 10 qd and Zetia 10 qd 4. Bronchodilators as needed and O2 Further plans are to follow Noam Pereira MD
[2017-01-16] MEDS: ATORVASTATIN CA 10 MG TABLET (FP) PO SCH (21:00)
[2017-01-16] MEDS: EZETIMIBE 10 MG TABLET (FP) PO SCH (21:00)
[2017-01-16] MEDS: PREGABALIN 50 MG CAPSULE PO SCH (21:00)
[2017-01-16] MEDS: METOPROLOL SUCCINATE 50 MG TAB.SR.24H (FP) PO SCH (21:00)
[2017-01-17] MEDS: FUROSEMIDE 40 MG/4 ML INJECTABLE VIAL IVPUSH SCH (06:12)
[2017-01-17] MEDS: metFORMIN HCL 500 MG TABLET (FP) PO SCH (06:16)
[2017-01-17] MEDS: glyBURIDE 2.5 MG TABLET (FP) PO SCH ×2 (06:16→17:19)
[2017-01-17 08:27] LABS: CALCIUM 8.3 mg/dL (8.5-10.1); CREATININE 0.8 mg/dL (0.55-1.02)
--- NOTE | 2017-01-17 10:31 | PN ---
Progress Note, Physician History of Present Illness: Dyspnea, cough and orthopnea improving with diuresis. - Current Medication List Current Medications: Active Medications Acetaminophen (Tylenol -) 650 mg PO Q6H PRN PRN Reason: PAIN Aclidinium [place] (Tudorza -) 1 puff IH BID [facility] Last Admin: 01/16/17 21:01 Dose: 1 puff Ascorbic Acid (Vitamin C -) 500 mg PO DAILY [facility] Last Admin: 01/16/17 09:45 Dose: 500 mg Aspirin (Ecotrin -) 81 mg PO DAILY [facility] Last Admin: 01/16/17 09:45 Dose: 81 mg Atorvastatin Calcium (Lipitor -) 10 mg PO HS [facility] Last Admin: 01/16/17 21:00 Dose: 10 mg Budesonide/Formoterol Fumarate (Symbicort 160/4.5mcg -) 2 puff IH DAILY [facility] Last Admin: 01/16/17 09:48 Dose: 2 puff Cholecalciferol (Vitamin D3 -) 1,000 unit PO DAILY [facility] Last Admin: 01/16/17 09:45 Dose: 1,000 unit Cyanocobalamin (Vitamin B12 -) 1,000 mcg PO DAILY [facility] Last Admin: 01/16/17 09:45 Dose: 1,000 mcg Ezetimibe (Zetia -) 10 mg PO HS [facility] Last Admin: 01/16/17 21:00 Dose: 10 mg Ferrous Gluconate (Fergon -) 324 mg PO DAILY [facility] Last Admin: 01/16/17 09:46 Dose: 324 mg Furosemide (Lasix Injection -) 40 mg IVPUSH BID@0600,1400 [facility] Last Admin: 01/17/17 06:12 Dose: 40 mg Glyburide (Diabeta -) 2.5 mg PO BIDAC [facility] Last Admin: 01/17/17 06:16 Dose: 2.5 mg Lidocaine (Lidoderm Patch -) 1 patch TP DAILY [facility] Last Admin: 01/16/17 09:47 Dose: 1 patch Losartan Potassium (Cozaar -) 50 mg PO DAILY [facility] Last Admin: 01/16/17 09:46 Dose: 50 mg Meclizine HCl (Antivert -) 25 mg PO Q6H PRN PRN Reason: BACK PAIN Metformin HCl (Glucophage -) 500 mg PO DAILY@0700 [facility] Last Admin: 01/17/17 06:16 Dose: Not Given Metoprolol Succinate (Toprol Xl -) [address] [facility] Last Admin: 01/16/17 21:00 Dose: 50 mg Potassium Chloride (K-Dur -) 30 meq PO DAILY [facility] Last Admin: 01/16/17 09:45 Dose: 30 meq Pregabalin (Lyrica -) [address] [facility] Last Admin: 01/16/17 21:00 Dose: 100 mg - Objective Vital Signs: Vital Signs Temperature 97.8 F 01/17/17 06:00 Pulse Rate 73 01/17/17 06:00 Respiratory Rate 20 01/17/17 06:00 Blood Pressure 108/46 01/17/17 06:00 O2 Sat by Pulse Oximetry (%) 93 L 01/16/17 20:57 Constitutional: Yes: No Distress, Calm Neck: Yes: Supple Cardiovascular: Yes: Regular Rate and Rhythm Respiratory: Yes: Regular, Diminished Gastrointestinal: Yes: Normal Bowel Sounds, Soft Edema: No Labs: CBC, BMP 01/17/17 06:00 INR, PTT INR 1.28 (0.82-1.09) H 01/13/17 15:40 Problem List - Problems (1) SOB (shortness of breath) Code(s): R06.02 - SHORTNESS OF BREATH (2) CAD (coronary artery disease) Code(s): I25.10 - ATHSCL HEART DISEASE OF [place] CORONARY ARTERY W/O ANG PCTRS Qualifiers: Coronary Disease-Associated Artery/Lesion type: [place] artery [place] vs. transplanted heart: [place] heart Associated angina: without angina Qualified Code(s): I25.10 - Atherosclerotic heart disease of [place] coronary artery without angina pectoris (3) COPD (chronic obstructive pulmonary disease) Code(s): J44.9 - CHRONIC OBSTRUCTIVE PULMONARY DISEASE, UNSPECIFIED Qualifiers : Chronic bronchitis type: unspecified (4) Diabetes Code(s): E11.9 - TYPE 2 DIABETES MELLITUS WITHOUT COMPLICATIONS Qualifiers: Diabetes mellitus type: type 2 (5) HTN (hypertension) Code(s): I10 - ESSENTIAL (PRIMARY) HYPERTENSION Qualifiers: Hypertension type: essential hypertension Qualified Code(s): I10 - Essential (primary) hypertension (6) Hypercholesterolemia Code(s): E78.0 - PURE HYPERCHOLESTEROLEMIA * DO NOT USE * (7) Acute on chronic diastolic (congestive) heart failure Code(s): I50.33 - ACUTE ON CHRONIC DIASTOLIC (CONGESTIVE) HEART FAILURE Assessment/Plan 1. Acute on chronic diastolic failure resolving 2. Recent anemia referable to duodenal bleeding post-epinephrine injections, cautery and endoclipping 2. CAD h/o demand ischemia 3. HTN/HCVD 4. Aortic valve disease/ - moderate 5. COPD 6. NIDDM 7. Hypercholesterolemia 8. Carotid artery disease s/p CEA 9. Vitamin D deficiency 10. Thrombocytopenia PLAN: 1. Change to oral diuresis with monitoring renal function and electrolytes 2. Continue Metoprolol 50 qd and Losartan 50 qd as hemodynamics tolerates 3. Continue ASA 81 qd, Lipitor 10 qd and Zetia 10 qd 4. Bronchodilators as needed and O2
[2017-01-17] MEDS: LOSARTAN POTASSIUM 50 MG TABLET (FP) PO SCH (11:04)
[2017-01-17] MEDS: ASPIRIN COATED 81 MG TABLET.EC PO SCH (11:04)
[2017-01-17] MEDS: FERROUS GLUCONATE 324 MG TAB (FP) PO SCH (11:05)
[2017-01-17] MEDS: LIDOCAINE 5% TOPICAL PATCH TP SCH (11:06)
[2017-01-17] MEDS: POTASSIUM CHLORIDE TABS 10 MEQ TABLET.ER (FP) PO SCH (11:06)
[2017-01-17] MEDS: ACLIDINIUM BROMIDE 400 MCG/INH AERO.POWD IH SCH ×2 (11:08→22:10)
[2017-01-17] MEDS: BUDESONIDE/FORMETEROL FUMARATE 160/4.5 mcg INHALER IH SCH (11:08)
[2017-01-17] MEDS: ASCORBIC ACID 500 MG TABLET (FP) PO SCH (11:09)
[2017-01-17] MEDS: CHOLECALCIFEROL (VITAMIN D3) 1,000 UNIT TABLET (FP) PO SCH (11:09)
[2017-01-17] MEDS: CYANOCOBALAMIN 1,000 MCG TABLET (FP) PO SCH (11:10)
[2017-01-17] MEDS: FUROSEMIDE 20 MG TABLET (FP) PO SCH (11:56)
--- NOTE | 2017-01-17 14:58 | PN ---
Progress Note (short form) - Note Progress Note: Breathing feels about the same as yesterday. Less SOB and cough. No CP. Intake & Output 01/14/17 01/15/17 01/16/17 01/17/17 23:59 23:59 23:59 23:59 Intake Total 1100 300 100 500 Balance 1100 300 100 500 Last Vital Signs Temp Pulse Resp BP Pulse Ox 97.9 F 89 20 118/64 93 L 01/17/17 13:52 01/17/17 14:14 01/17/17 13:52 01/17/17 13:52 01/17/17 14:14 Active Medications Acetaminophen (Tylenol -) 650 mg PO Q6H PRN PRN Reason: PAIN Aclidinium [place] (Tudorza -) 1 puff IH BID [facility] Last Admin: 01/17/17 11:08 Dose: 1 puff Ascorbic Acid (Vitamin C -) 500 mg PO DAILY [facility] Last Admin: 01/17/17 11:09 Dose: 500 mg Aspirin (Ecotrin -) 81 mg PO DAILY [facility] Last Admin: 01/17/17 11:04 Dose: 81 mg Atorvastatin Calcium (Lipitor -) 10 mg PO HS [facility] Last Admin: 01/16/17 21:00 Dose: 10 mg Budesonide/Formoterol Fumarate (Symbicort 160/4.5mcg -) 2 puff IH DAILY [facility] Last Admin: 01/17/17 11:08 Dose: 2 puff Cholecalciferol (Vitamin D3 -) 1,000 unit PO DAILY [facility] Last Admin: 01/17/17 11:09 Dose: 1,000 unit Cyanocobalamin (Vitamin B12 -) 1,000 mcg PO DAILY [facility] Last Admin: 01/17/17 11:10 Dose: 1,000 mcg Ezetimibe (Zetia -) 10 mg PO HS [facility] Last Admin: 01/16/17 21:00 Dose: 10 mg Ferrous Gluconate (Fergon -) 324 mg PO DAILY [facility] Last Admin: 01/17/17 11:05 Dose: 324 mg Furosemide (Lasix -) 20 mg PO DAILY [facility] Last Admin: 01/17/17 11:56 Dose: 20 mg Glyburide (Diabeta -) 2.5 mg PO BIDAC [facility] Last Admin: 01/17/17 06:16 Dose: 2.5 mg Lidocaine (Lidoderm Patch -) 1 patch TP DAILY [facility] Last Admin: 01/17/17 11:06 Dose: 1 patch Losartan Potassium (Cozaar -) 50 mg PO DAILY [facility] Last Admin: 01/17/17 11:04 Dose: 50 mg Meclizine HCl (Antivert -) 25 mg PO Q6H PRN PRN Reason: BACK PAIN Metformin HCl (Glucophage -) 500 mg PO DAILY@0700 [facility] Last Admin: 01/17/17 06:16 Dose: Not Given Metoprolol Succinate (Toprol Xl -) [address] [facility] Last Admin: 01/16/17 21:00 Dose: 50 mg Potassium Chloride (K-Dur -) 30 meq PO DAILY [facility] Last Admin: 01/17/17 11:06 Dose: 30 meq Pregabalin (Lyrica -) [address] [facility] Last Admin: 01/16/17 21:00 Dose: 100 mg Constitutional: Yes: Well Nourished, NAD Eyes: Yes: WNL HENT: Yes: WNL Neck: Yes: WNL Cardiovascular: Yes: Regular Rate and Rhythm, S1, S2 Respiratory: Yes: Diminished, few rhonchi Gastrointestinal: Yes: Normal Bowel Sounds, Soft Extremities: Yes: WNL Edema: Yes Edema: LLE: Trace Labs: Laboratory Results - last 24 hr 01/16/17 01/17/17 01/17/17 17:34 06:00 06:15 Sodium 144 Potassium 3.9 Chloride 100 Carbon Dioxide 38 H Anion Gap 6 L BUN 9 D Creatinine 0.8 POC Glucometer 156 129 Random Glucose 118 H Calcium 8.3 L 01/17/17 11:55 Sodium Potassium Chloride Carbon Dioxide Anion Gap BUN Creatinine POC Glucometer 107 Random Glucose Calcium Assessment/Plan Problem List - Problems (1) SOB (shortness of breath) Code(s): R06.02 - SHORTNESS OF BREATH (2) Anemia Code(s): D64.9 - ANEMIA, UNSPECIFIED Qualifiers: (3) CAD (coronary artery disease) Code(s): I25.10 - ATHSCL HEART DISEASE OF [place] CORONARY ARTERY W/O ANG PCTRS Qualifiers: (4) COPD (chronic obstructive pulmonary disease) Code(s): J44.9 - CHRONIC OBSTRUCTIVE PULMONARY DISEASE, UNSPECIFIED Qualifiers : (5) Diabetes Code(s): E11.9 - TYPE 2 DIABETES MELLITUS WITHOUT COMPLICATIONS Qualifiers: CHF Assessment/Plan O2 SUPPLEMENTATION SYMBICORT BID TUDORZA BID INHALED BRONCHODILATORS PRN CONTINUE HOME MEDS WILL LIKELY NEED HOME O2 LASIX SCDS DR CHAN
[2017-01-17] MEDS ORDERED: PT OWN MED DRAWER 7, Y5N ONE (17:18)
[2017-01-17] MEDS: EZETIMIBE 10 MG TABLET (FP) PO SCH (22:09)
[2017-01-17] MEDS: PREGABALIN 50 MG CAPSULE PO SCH (22:09)
[2017-01-17] MEDS: METOPROLOL SUCCINATE 50 MG TAB.SR.24H (FP) PO SCH (22:09)
[2017-01-17] MEDS: ATORVASTATIN CA 10 MG TABLET (FP) PO SCH (22:10)
[2017-01-18] MEDS: glyBURIDE 2.5 MG TABLET (FP) PO SCH (06:31)
[2017-01-18] MEDS: metFORMIN HCL 500 MG TABLET (FP) PO SCH (06:31)
[2017-01-18 08:47] LABS: CALCIUM 8.5 mg/dL (8.5-10.1); CREATININE 0.8 mg/dL (0.55-1.02)
[2017-01-18] MEDS ORDERED: PT OWN MED DRAWER 7, Y5N ONE (09:59)
[2017-01-18] MEDS: POTASSIUM CHLORIDE TABS 10 MEQ TABLET.ER (FP) PO SCH (10:12)
[2017-01-18] MEDS: FUROSEMIDE 20 MG TABLET (FP) PO SCH (10:13)
[2017-01-18] MEDS: LOSARTAN POTASSIUM 50 MG TABLET (FP) PO SCH (10:13)
[2017-01-18] MEDS: ASCORBIC ACID 500 MG TABLET (FP) PO SCH (10:13)
[2017-01-18] MEDS: CHOLECALCIFEROL (VITAMIN D3) 1,000 UNIT TABLET (FP) PO SCH (10:14)
[2017-01-18] MEDS: CYANOCOBALAMIN 1,000 MCG TABLET (FP) PO SCH (10:14)
[2017-01-18] MEDS: FERROUS GLUCONATE 324 MG TAB (FP) PO SCH (10:14)
[2017-01-18] MEDS: ASPIRIN COATED 81 MG TABLET.EC PO SCH (10:15)
[2017-01-18] MEDS: LIDOCAINE 5% TOPICAL PATCH TP SCH (10:15)
[2017-01-18] MEDS: BUDESONIDE/FORMETEROL FUMARATE 160/4.5 mcg INHALER IH SCH (10:17)
[2017-01-18] MEDS: ACLIDINIUM BROMIDE 400 MCG/INH AERO.POWD IH SCH (10:17)
--- NOTE | 2017-01-18 11:08 | DS ---
Physical Examination Vital Signs: Vital Signs Temperature 98.2 F 01/18/17 06:00 Pulse Rate 79 01/18/17 06:00 Respiratory Rate 20 01/18/17 06:00 Blood Pressure 115/56 01/18/17 06:00 O2 Sat by Pulse Oximetry (%) 93 L 01/17/17 21:00 Constitutional: Yes: Well Nourished, No Distress, Calm Eyes: Yes: Conjunctiva Clear, EOM Intact HENT: Yes: Atraumatic, Normocephalic Neck: Yes: Supple, Trachea Midline Cardiovascular: Yes: Regular Rate and Rhythm Respiratory: Yes: Cough, Diminished, Rhonchi. No: Accessory Muscle Use, Rales, SOB on Exertion, Stridor, Tachypnea, Wheezes Gastrointestinal: Yes: Normal Bowel Sounds, Soft, Abdomen, Obese ...Rectal Exam: Yes: Deferred Renal/: Yes: WNL Musculoskeletal: Yes: WNL Extremities: Yes: WNL Edema: No Peripheral Pulses WNL: Yes Integumentary: Yes: WNL Neurological: Yes: WNL, Alert, Oriented ...Motor Strength: WNL Psychiatric: Yes: WNL, Alert, Oriented Labs: CBC, BMP 01/18/17 06:00 Discharge Summary Reason For Visit: SOB Current Active Problems Acute on chronic diastolic (congestive) heart failure (Acute) SOB (shortness of breath) (Acute) Hospital Course: Admitted via the ER due to progressive MULLIGAN and SOB. Found to be in volume overload/retention. Required treatment with IV Lasix. Clinically improved. Will require home O2 due to hypoxemia. Condition: Stable - Instructions Referrals: Cody Adorno MD [Primary Care Provider] - Disposition: HOME - Home Medications Comprehensive Discharge Medication List: Ambulatory Orders Aspirin Coated [Ecotrin -] 81 mg PO DAILY 05/03/12 Ezetimibe/Simvastatin [Vytorin 10-20 mg Tablet] 1 each PO HS 05/03/12 Ferrous Gluconate 325 mg PO DAILY 05/03/12 Glyburide 2.5 mg PO BID 05/03/12 Metoprolol Succinate [Toprol XL -] 50 mg PO HS 05/03/12 Pregabalin [Lyrica] 100 mg PO HS 05/03/12 Budesonide/Formeterol Fumarate [SYMBICORT 160/4.5mcg -] 2 inh PO DAILY 12/31/13 Metformin HCl [Glucophage -] 500 mg PO DAILY 12/31/13 Meclizine HCl [Antivert -] 25 mg PO Q6H PRN #0 tablet 01/02/14 Tiotropium [place] [Spiriva] 1 inh PO DAILY #1 01/02/14 Cholecalciferol (Vitamin D3) [Vitamin D3] 1,000 unit PO DAILY 06/18/14 Cyanocobalamin [Vitamin B12 -] 1,000 mcg PO DAILY 06/18/14 Acetaminophen [Tylenol] 650 mg PO Q6H PRN 12/09/16 Lidocaine 5% Patch [Lidoderm Patch -] 1 patch TP HS 12/09/16 Ascorbate Calcium [Vitamin C] 500 mg PO DAILY 01/13/17 Losartan Potassium 50 mg PO DAILY 01/13/17 Pantoprazole Sodium 40 mg PO DAILY 01/13/17
--- NOTE | 2017-01-18 11:15 | PN ---
Progress Note, Physician Chief Complaint: Events noted Clinically improved History of Present Illness: Patient was seen and examined. Awake and alert. Chart was reviewed Denies chest pain, less SOB and no palpitations - Current Medication List Current Medications: Active Medications Acetaminophen (Tylenol -) 650 mg PO Q6H PRN PRN Reason: PAIN Aclidinium [place] (Tudorza -) 1 puff IH BID [facility] Last Admin: 01/18/17 10:17 Dose: 1 puff Ascorbic Acid (Vitamin C -) 500 mg PO DAILY [facility] Last Admin: 01/18/17 10:13 Dose: 500 mg Aspirin (Ecotrin -) 81 mg PO DAILY [facility] Last Admin: 01/18/17 10:15 Dose: 81 mg Atorvastatin Calcium (Lipitor -) 10 mg PO HS [facility] Last Admin: 01/17/17 22:10 Dose: 10 mg Budesonide/Formoterol Fumarate (Symbicort 160/4.5mcg -) 2 puff IH DAILY [facility] Last Admin: 01/18/17 10:17 Dose: 2 puff Cholecalciferol (Vitamin D3 -) 1,000 unit PO DAILY [facility] Last Admin: 01/18/17 10:14 Dose: 1,000 unit Cyanocobalamin (Vitamin B12 -) 1,000 mcg PO DAILY [facility] Last Admin: 01/18/17 10:14 Dose: 1,000 mcg Ezetimibe (Zetia -) 10 mg PO HS [facility] Last Admin: 01/17/17 22:09 Dose: 10 mg Ferrous Gluconate (Fergon -) 324 mg PO DAILY [facility] Last Admin: 01/18/17 10:14 Dose: 324 mg Furosemide (Lasix -) 20 mg PO DAILY [facility] Last Admin: 01/18/17 10:13 Dose: 20 mg Glyburide (Diabeta -) 2.5 mg PO BIDAC [facility] Last Admin: 01/18/17 06:31 Dose: 2.5 mg Lidocaine (Lidoderm Patch -) 1 patch TP DAILY [facility] Last Admin: 01/18/17 10:15 Dose: 1 patch Losartan Potassium (Cozaar -) 50 mg PO DAILY [facility] Last Admin: 01/18/17 10:13 Dose: 50 mg Meclizine HCl (Antivert -) 25 mg PO Q6H PRN PRN Reason: BACK PAIN Metformin HCl (Glucophage -) 500 mg PO DAILY@0700 [facility] Last Admin: 01/18/17 06:31 Dose: 500 mg Metoprolol Succinate (Toprol Xl -) 50 mg PO HS [facility] Last Admin: 01/17/17 22:09 Dose: 50 mg Potassium Chloride (K-Dur -) 30 meq PO DAILY [facility] Last Admin: 01/18/17 10:12 Dose: 30 meq Pregabalin (Lyrica -) 100 mg PO HS [facility] Last Admin: 01/17/17 22:09 Dose: 100 mg - Objective Vital Signs: Vital Signs Temperature 98.2 F 01/18/17 06:00 Pulse Rate 79 01/18/17 06:00 Respiratory Rate 20 01/18/17 06:00 Blood Pressure 115/56 01/18/17 06:00 O2 Sat by Pulse Oximetry (%) 93 L 01/17/17 21:00 Neck: Yes: Supple Cardiovascular: Yes: Regular Rate and Rhythm, S1, S2 Respiratory: Yes: CTA Bilaterally Gastrointestinal: Yes: Normal Bowel Sounds, Soft. No: Tenderness Edema: No Labs: CBC, BMP 01/18/17 06:00 Problem List - Problems (1) Acute on chronic diastolic (congestive) heart failure Code(s): I50.33 - ACUTE ON CHRONIC DIASTOLIC (CONGESTIVE) HEART FAILURE (2) SOB (shortness of breath) Code(s): R06.02 - SHORTNESS OF BREATH (3) Anemia Code(s): D64.9 - ANEMIA, UNSPECIFIED Qualifiers: Anemia type: unspecified type Qualified Code(s): D64.9 - Anemia, unspecified (4) CAD (coronary artery disease) Code(s): I25.10 - ATHSCL HEART DISEASE OF [place] CORONARY ARTERY W/O ANG PCTRS Qualifiers: Coronary Disease-Associated Artery/Lesion type: [place] artery [place] vs. transplanted heart: [place] heart Associated angina: without angina Qualified Code(s): I25.10 - Atherosclerotic heart disease of [place] coronary artery without angina pectoris (5) COPD (chronic obstructive pulmonary disease) Code(s): J44.9 - CHRONIC OBSTRUCTIVE PULMONARY DISEASE, UNSPECIFIED Qualifiers : Chronic bronchitis type: unspecified (6) Demand ischemia Code(s): I24.8 - OTHER FORMS OF ACUTE ISCHEMIC HEART DISEASE (7) Diabetes Code(s): E11.9 - TYPE 2 DIABETES MELLITUS WITHOUT COMPLICATIONS Qualifiers: Diabetes mellitus type: type 2 (8) HTN (hypertension) Code(s): I10 - ESSENTIAL (PRIMARY) HYPERTENSION Qualifiers: Hypertension type: essential hypertension Qualified Code(s): I10 - Essential (primary) hypertension (9) Hypercholesterolemia Code(s): E78.0 - PURE HYPERCHOLESTEROLEMIA * DO NOT USE * Assessment/Plan 1. Acute on chronic diastolic failure - improved 2. Recent anemia referable to duodenal bleeding post-epinephrine injections, cautery and endoclipping 2. CAD h/o demand ischemia 3. HTN/HCVD 4. Aortic valve disease/ - moderate 5. COPD 6. NIDDM 7. Hypercholesterolemia 8. Carotid artery disease s/p CEA 9. Vitamin D deficiency 10. Thrombocytopenia PLAN: 1. PO diuretic 2. Continue Metoprolol 50 qd and Losartan 50 qd as hemodynamics tolerates 3. Continue Lipitor 10 qd and Zetia 10 qd 4. Bronchodilators as needed and O2 May discharge home cardiac standpoint Further plans are to follow Noam Pereira MD
[2017-01-18 14:05] VITALS: BP 101/64; PULSE 70; TEMP 98.3
== END 2017-01-18 14:08 | disposition home health service (06) | DRG 292 ==
LOC: JER 15:13 → JERBED 17:18 → J7W 19:12
PROVIDERS: ADMIT Specialist; ATTEND Specialist
DX: I11.0 Hypertensive heart disease with heart failure (principal); I24.8 Other forms of acute ischemic heart disease; J98.11 Atelectasis; I50.33 Acute on chronic diastolic (congestive) heart failure; Z87.891 Personal history of nicotine dependence; I25.10 Atherosclerotic heart disease of native coronary artery without angina pectoris; I35.0 Nonrheumatic aortic (valve) stenosis; E11.9 Type 2 diabetes mellitus without complications; E78.00 Pure hypercholesterolemia, unspecified; M19.90 Unspecified osteoarthritis, unspecified site; I25.2 Old myocardial infarction; I27.2 Other secondary pulmonary hypertension; E55.9 Vitamin D deficiency, unspecified; D69.6 Thrombocytopenia, unspecified; Z79.84 Long term (current) use of oral hypoglycemic drugs
CPT/HCPCS: 36415; 71010-TC; 71275-TC; 80048; 80053; 82550; 83735; 83880; 84484; 85025; 85379; 85610; 85730; 93005; 93010; 94761; 99284-25

== ENCOUNTER 2017-08-01 13:54 | Emergency (ER) | payer OTHER ==
[2017-08-01 14:02] VITALS: BP 148/62; PULSE 85; TEMP 98.6; BMI 31.3
[2017-08-01] MEDS ORDERED: morphine CARPU-JECT 2 MG/1 ML DISP.SYRIN IVPUSH ONE (15:39)
[2017-08-01] MEDS ORDERED: morphine CARPU-JECT 2 MG/1 ML DISP.SYRIN ONE (16:00)
[2017-08-01 16:05] LABS: BASOPHIL 1.1 % (0-2.0); EOSINOPHIL 2.4 % (0-4.5); MCH 33.9 pg (25.7-33.7); MCHC 34.1 g/dl (32.0-36.0); MEAN CELL VOLUME 99.6 fl (80-96); MEAN PLT VOLUME 7.5 fl (7.5-11.1); NEUTROPHILS 66.9 % (42.8-82.8); PLATELET COUNT 103 K/MM3 (134-434); RDW 14.9 % (11.6-15.6); WHITE BLOOD COUNT 5.2 K/mm3 (4.0-10.0)
--- NOTE | 2017-08-01 16:16 | PDOC ---
Attending Attestation - Resident Resident Name: CristobalBrynn - ED Attending Attestation I have performed the following: I have examined & evaluated the patient, The case was reviewed & discussed with the resident, I agree w/resident's findings & plan, Exceptions are as noted - Medical Decision Making 08/01/17 16:09 Vital Signs Temp Pulse Resp BP Pulse Ox 98.6 F 85 20 148/62 97 08/01/17 14:00 08/01/17 14:00 08/01/17 14:00 08/01/17 14:00 08/01/17 14:00 76 year old female with CHF, HTN, DM, COPD presents with lower back pain. Patient reports in the last two days of having thoracic and left flank pain. Pt denies any trauma or injury. States that she felt this pain worsening with lying down and improved with standing up. Denies dysuria, hematuria or fevers. Denies abdominal pain. Pt denies any prior history of known back history. Differential includes pyelonephritis, renal colic, muscle spasm, herniated thoracic disc. I agree with plan for labs, UA/UC, spiral CT and thoracic CT. Will attempt to control pain. If pain is uncontrollable, consider admission. <Partha Mccracken - Last Filed: 08/01/17 16:08> - HPI HPI: 08/01/17 16:20 76 year old female with CHF, HTN, DM, COPD presents with lower back pain. Patient reports in the last two days of having thoracic and left flank pain. Pt denies any trauma or injury. States that she felt this pain worsening with lying down and improved with standing up. Denies dysuria, hematuria or fevers. Denies abdominal pain. Pt denies any prior history of known back history. - Physicial Exam PE: 08/01/17 16:21 GENERAL: Awake, alert, and fully oriented, in no acute distress HEAD: No signs of trauma EYES: PERRLA, EOMI, sclera anicteric, conjunctiva clear ENT: Auricles normal inspection, hearing grossly normal, nares patent, oropharynx clear without exudates. Moist mucosa NECK: Normal ROM, supple, no lymphadenopathy, JVD, or masses LUNGS: Breath sounds equal, clear to auscultation bilaterally. No wheezes, and no crackles HEART: Regular rate and rhythm, normal S1 and S2, no murmurs, rubs or gallops ABDOMEN: +L CVA tenderness. Soft, nontender, normoactive bowel sounds. No guarding, no rebound. No masses EXTREMITIES: Normal range of motion, no edema. No clubbing or cyanosis. No cords, erythema, or tenderness. +T9-T11 tenderness to palpation.+No step off NEUROLOGICAL: Cranial nerves II through XII grossly intact. Normal speech, normal gait SKIN: Warm, Dry, normal turgor, no rashes or lesions noted. - Medical Decision Making 08/01/17 16:22 Documentation prepared by Bere Vazquez, acting as medical engineer for Partha Mccracken MD <Bere Vazquez - Last Filed: 08/01/17 16:22>
[2017-08-01 16:28] LABS: ALBUMIN 3.6 g/dl (3.4-5.0); ALK PHOS 59 U/L (45-117); ANION GAP 11 (8-16); BILIRUBIN,TOTAL 0.5 mg/dL (0.2-1.0); CALCIUM 8.9 mg/dL (8.5-10.1); CO2 23 mmol/L (21-32); CREATININE 1.2 mg/dL (0.55-1.02); GLUCOSE,RANDOM 108 mg/dL (74-106); SGOT/AST 20 U/L (15-37); SGPT/ALT 20 U/L (12-78); TOT PROT 6.6 g/dl (6.4-8.2)
[2017-08-01 17:46] LABS: URINE APPEARANCE CLEAR; URINE BILIRUBIN NEGATIVE (NEGATIVE); URINE BLOOD NEGATIVE (NEGATIVE); URINE COLOR YELLOW; URINE GLUCOSE (UA) NEGATIVE (NEGATIVE); URINE KETONE NEGATIVE (NEGATIVE); URINE NITRITE NEGATIVE (NEGATIVE); URINE PROTEIN NEGATIVE (NEGATIVE); URINE UROBILINOGEN NEGATIVE mg/dL (0.2-1.0)
[2017-08-01 17:51] LABS: URINE LEUK ESTERASE 1+ (NEGATIVE)
[2017-08-01 17:52] LABS: URINE BACTERIA RARE /hpf (NONE SEEN); URINE HYALINE CAST 1 /lpf; URINE RBC <1 /hpf (0-3); URINE WBC 3 /hpf (3-5)
[2017-08-01] MEDS ORDERED: IBUPROFEN 600 MG TABLET (FP) PO ONE ×2 (20:54→21:07)
--- NOTE | 2017-08-01 20:57 | PDOC ---
History of Present Illness - General Chief Complaint: Back Pain Stated Complaint: SENT BY PCP FOR WEANKESS Time Seen by Provider: 08/01/17 14:53 History Source: Patient Exam Limitations: No Limitations - History of Present Illness Initial Comments: 76yo F with PMH of dm, chf, hld, presents c/o Left mid-back pain x 2 days. Pain is intermittent, in the lower thoracic spine radiating to the Left flank, rated 9/10. Pain is worse with lying down. Pt took NSAIDs, Tylenol and her Lyrica which did not relieve the pain. Pt's PCP (Dr. Adorno) advised her to come to the ER. 08/02/17 00:38 Associated Symptoms: denies: chest pain, cough, diaphoresis, fever/chills, headaches, nausea/vomiting, rash, shortness of breath, syncope, weakness Past History - Past Medical History Allergies/Adverse Reactions: Allergies Allergy/AdvReac Type Severity Reaction Status Date / Time No Known Drug Allergies Allergy Verified 08/01/17 14:00 Home Medications: Ambulatory Orders Ezetimibe/Simvastatin [Vytorin 10-20 mg Tablet] 1 each PO HS 05/03/12 Ferrous Gluconate 325 mg PO DAILY 05/03/12 Glyburide 2.5 mg PO BID 05/03/12 Metoprolol Succinate [Toprol XL -] 50 mg PO HS 05/03/12 Pregabalin [Lyrica] 100 mg PO HS 05/03/12 Budesonide/Formeterol Fumarate [SYMBICORT 160/4.5mcg -] 2 inh PO DAILY 12/31/13 Metformin HCl [Glucophage -] 500 mg PO DAILY 12/31/13 Tiotropium [place] [Spiriva] 1 inh PO DAILY #1 01/02/14 Cholecalciferol (Vitamin D3) [Vitamin D3] 1,000 unit PO DAILY 06/18/14 Cyanocobalamin [Vitamin B12 -] 1,000 mcg PO DAILY 06/18/14 Ascorbate Calcium [Vitamin C] 500 mg PO DAILY 01/13/17 Aspirin Coated [Ecotrin -] 81 mg PO DAILY tablet.ec 01/18/17 Losartan Potassium [Cozaar -] 50 mg PO DAILY tablet 01/18/17 Acetaminophen [Tylenol] 650 mg PO PRN PRN 08/01/17 Folic Acid 1 mg PO DAILY 08/01/17 Furosemide [Lasix] 20 mg PO DAILY 08/01/17 Pantoprazole Sodium 40 mg PO DAILY 08/01/17 Anemia: Yes Asthma: No Cancer: No Cardiac Disorders: No CVA: No COPD: Yes CHF: No Dementia: No Diabetes: Yes (NIDDM) GI Disorders: Yes (diverticulosis,constipation) Disorders: No HTN: Yes Hypercholesterolemia: Yes Liver Disease: No Seizures: No Other medical history: shingles, thrombocytopenia - Surgical History Abdominal Surgery: Yes (repair umbilical hernia) Appendectomy: Yes Cardiac Surgery: No Cholecystectomy: Yes Lung Surgery: No Neurologic Surgery: No Orthopedic Surgery: Yes (ORIF, RIGHT ANKLE) - Immunization History Immunization Up to Date: Yes - Suicide/Smoking/Psychosocial Hx Smoking History: Former smoker Have you smoked in the past 12 months: No If you are a former smoker, when did you quit?: 2010 Information on smoking cessation initiated: No 'Breaking Loose' booklet given: 05/04/12 Hx Alcohol Use: No Drug/Substance Use Hx: No Substance Use Type: None Hx Substance Use Treatment: No Review of Systems - Review of Systems Able to Perform ROS?: Yes Is the patient limited Romanian proficient: No Constitutional: No: Chills, Diaphoresis, Fever HEENTM: No: Recent change in vision, Ear Pain, Nose Pain, Throat Pain Respiratory: Yes: Productive cough (sometimes brings up yellowish or clear phlegm). No: Cough, Shortness of Breath, Stridor, Wheezing, Hemoptysis Cardiac (ROS): No: Chest Pain, Edema, Irregular Heart Rate, Lightheadedness, Palpitations, Syncope, Chest Tightness ABD/GI: No: Abdominal Distended, Constipated, Diarrhea, Nausea, Rectal Bleeding , Vomiting, Abdominal cramping : No: Burning, Dysuria, Hematuria Musculoskeletal: Yes: Back Pain. No: Neck Pain Integumentary: No: Bruising, Lesions, Rash Neurological: No: Headache, Paresthesia, Unsteady Gait, Dizziness *Physical Exam - Vital Signs Last Vital Signs Temp Pulse Resp BP Pulse Ox 98.6 F 85 20 148/62 97 08/01/17 14:00 08/01/17 14:00 08/01/17 14:00 08/01/17 14:00 08/01/17 14:00 - Physical Exam General Appearance: Yes: Nourished, Appropriately Dressed. No: Apparent Distress HEENT: positive: EOMI, Normal Voice, Other (moist mucous membranes). negative: Pale Conjunctivae, Scleral Icterus (R), Scleral Icterus (L), Nasal Congestion, Rhinorrhea Neck: positive: Trachea midline, Supple Respiratory/Chest: positive: Lungs Clear, Normal Breath Sounds. negative: Respiratory Distress, Accessory Muscle Use Cardiovascular: positive: Regular Rhythm, Regular Rate, S1, S2. negative: Murmur Gastrointestinal/Abdominal: positive: Soft. negative: Distended, Guarding, Rebound, Tenderness Musculoskeletal: positive: CVA Tenderness (L), Vertebral Tenderness (T9-T11, no step off appreciated). negative: Decreased Range of Motion Extremity: negative: Swelling, Calf Tenderness, Erythema Integumentary: positive: Normal Color, Dry, Warm Neurologic: positive: Fully Oriented, Alert, Normal Mood/Affect, Normal Response , Motor Strength 03/18 ED Treatment Course - LABORATORY CBC & Chemistry Diagram: 08/01/17 15:45 08/01/17 15:45 - ADDITIONAL ORDERS Additional order review: Laboratory Results 08/01/17 08/01/17 17:35 15:45 Sodium 138 Potassium 4.9 D Chloride 104 Carbon Dioxide 23 D Anion Gap 11 BUN 26 H D Creatinine 1.2 H D Creat Clearance w eGFR 43.56 Random Glucose 108 H Calcium 8.9 Total Bilirubin 0.5 D AST 20 ALT 20 D Alkaline Phosphatase 59 Total Protein 6.6 Albumin 3.6 Urine Color Yellow Urine Appearance Clear Urine pH 5.0 Urine Protein Negative Urine Glucose (UA) Negative Urine Ketones Negative Urine Blood Negative Urine Nitrite Negative Urine Bilirubin Negative Urine Urobilinogen Negative Urine RBC <1 Urine WBC 3 Ur Epithelial Cells Rare Urine Bacteria Rare Hyaline Casts 1 08/01/17 15:45 RBC 2.51 L D MCV 99.6 H MCHC 34.1 RDW 14.9 D MPV 7.5 Neutrophils % 66.9 Lymphocytes % 21.0 D Monocytes % 8.6 Eosinophils % 2.4 Basophils % 1.1 - RADIOLOGY Radiology Studies Ordered: Category Date Time Status SPIRAL- RENAL-STONE CT [CT] Stat CT Scan 08/01/17 15:[address] W/O CONTRAST [CT] Stat CT Scan 08/01/17 15:40 Completed - Medications Given in the ED: ED Medications Discontinued Medications Generic Name Dose Route Start Last Admin Trade Name Freq PRN Reason Stop Dose Admin Morphine Sulfate 2 mg 08/01/17 15:39 08/01/17 16:03 Morphine Injection - IVPUSH 08/01/17 15:40 2 mg ONCE ONE Administration Medical Decision Making - Medical Decision Making 76yo F with PMH of dm, chf, hld, presets c/o Left mid-back pain x [address] sprial non-contrast -> no urolithiasis or obstructing uropathy. CT thoracic spine non-contrast -> no gross disc herniation. UA -> (-) for UTI urine culture CBC with diff -> anemia (H/H 8.5/25.0), thrombocytopenia (hx of, improved compared to baseline) CMP -> BUN/Cr slightly elevated Morphine 2mg given for pain Upon reassessment, pt ready to go home. Case discussed with Dr. Adorno, who agrees pt can go home. 08/02/17 01:01 *DC/Admit/Observation/Transfer Diagnosis at time of Disposition: Back pain - Discharge Dispostion Disposition: HOME Condition at time of disposition: Improved Admit: No - Referrals Referrals: Cody Adorno MD [Primary Care Provider] - - Patient Instructions Printed Discharge Instructions: DI for Thoracic Back Pain Additional Instructions: Please follow-up with your Primary Care Doctor. Please return to the hospital for persistent or worsening pain, or for any medical emergency such as chest pain, palpitations, difficulty breathing.
== END 2017-08-01 21:17 | disposition home or self-care (01) ==
LOC: JER 13:54
DX: M54.6 Pain in thoracic spine (principal); I10 Essential (primary) hypertension; E11.9 Type 2 diabetes mellitus without complications; Z79.84 Long term (current) use of oral hypoglycemic drugs; E78.00 Pure hypercholesterolemia, unspecified; D69.6 Thrombocytopenia, unspecified; I50.9 Heart failure, unspecified; K57.90 Diverticulosis of intestine, part unspecified, without perforation or abscess without bleeding; J44.9 Chronic obstructive pulmonary disease, unspecified; Z87.891 Personal history of nicotine dependence
CPT/HCPCS: 36415; 72128-TC; 74176; 80053; 81003; 81015; 85025; 87086; 99284-25

== ENCOUNTER 2017-08-05 18:29 | Inpatient (IN) | payer OTHER ==
[2017-08-05 18:39] VITALS: BMI 31.3
--- NOTE | 2017-08-05 19:26 | PDOC ---
Attending Attestation - Resident Resident Name: Brynn Jain - ED Attending Attestation I have performed the following: I have examined & evaluated the patient, The case was reviewed & discussed with the resident, I agree w/resident's findings & plan, Exceptions are as noted - HPI HPI: 08/05/17 19:24 Dyspnea on Exertion (new), Low Back pain more remote, recently evaluated and treated it this ED for it. - Physicial Exam PE: 08/05/17 19:25 No Acute or Respiratory Distress VSS - Medical Decision Making 08/05/17 19:[address] Jain's Assessment and Plan
[2017-08-05] MEDS ORDERED: SODIUM CHLORIDE 500 ML IV STA (19:47)
[2017-08-05] MEDS ORDERED: METHOCARBAMOL 500 MG TABLET PO ONE (19:52)
--- NOTE | 2017-08-05 20:01 | PDOC ---
History of Present Illness - General Chief Complaint: Pain Stated Complaint: WEAKNESS Time Seen by Provider: 08/05/17 19:15 History Source: Patient, Family (son at bedside) Exam Limitations: No Limitations - History of Present Illness Initial Comments: 76yo F with PMH of anemia, COPD, thrombocytopenia, niddm, presents c/o continued back and neck pain. Pt was in ER on Tuesday for same complaint. Pain started Tuesday and has been getting worse. On Tuesday in ER pt described pain in the thoracic spine radiating to the Left flank, she reports this pain persists. She also c/o of neck pain now, localized to the trapesius muscle in the suprascapular region. Pain is described as sharp, intermittent, non- radiating, rated 9/10. Pain is worse with movement. Pt took Acetaminophen/ Codeine prescribed by PCP (Dr. Adorno), but did not eat much today (toast and coffee) and is now having nausea and nbnb vomiting. PCP also prescribed Carisoprodol, but pt did not take this medication yet. Pt sleeps with air conditioner aimed at her back. Pt c/o dyspnea and dizziness on exertion. PCP: Dr. Adorno 08/05/17 19:55 Timing/Duration: 1 week Severity: severe Associated Symptoms: reports: nausea/vomiting. denies: chest pain, cough, diaphoresis, fever/chills, headaches, rash Past History - Past Medical History Allergies/Adverse Reactions: Allergies Allergy/AdvReac Type Severity Reaction Status Date / Time No Known Drug Allergies Allergy Verified 08/05/17 18:39 Home Medications: Ambulatory Orders Ezetimibe/Simvastatin [Vytorin 10-20 mg Tablet] 1 each PO HS 05/03/12 Ferrous Gluconate 325 mg PO DAILY 05/03/12 Glyburide 2.5 mg PO BID 05/03/12 Metoprolol Succinate [Toprol XL -] 50 mg PO HS 05/03/12 Pregabalin [Lyrica] 100 mg PO HS 05/03/12 Budesonide/Formeterol Fumarate [SYMBICORT 160/4.5mcg -] 2 inh PO DAILY 12/31/13 Metformin HCl [Glucophage -] 500 mg PO DAILY 12/31/13 Tiotropium [place] [Spiriva] 1 inh PO DAILY #1 01/02/14 Cholecalciferol (Vitamin D3) [Vitamin D3] 1,000 unit PO DAILY 06/18/14 Cyanocobalamin [Vitamin B12 -] 1,000 mcg PO DAILY 06/18/14 Ascorbate Calcium [Vitamin C] 500 mg PO DAILY 01/13/17 Aspirin Coated [Ecotrin -] 81 mg PO DAILY tablet.ec 01/18/17 Losartan Potassium [Cozaar -] 50 mg PO DAILY tablet 01/18/17 Acetaminophen [Tylenol] 650 mg PO PRN PRN 08/01/17 Folic Acid 1 mg PO DAILY 08/01/17 Furosemide [Lasix] 20 mg PO DAILY 08/01/17 Pantoprazole Sodium 40 mg PO DAILY 08/01/17 Anemia: Yes Asthma: No Cancer: No Cardiac Disorders: No CVA: No COPD: Yes CHF: No Dementia: No Diabetes: Yes (NIDDM) GI Disorders: Yes (diverticulosis,constipation) Disorders: No HTN: Yes Hypercholesterolemia: Yes Liver Disease: No Seizures: No Other medical history: shingles, thrombocytopenia - Surgical History Abdominal Surgery: Yes (repair umbilical hernia) Appendectomy: Yes Cardiac Surgery: No Cholecystectomy: Yes Lung Surgery: No Neurologic Surgery: No Orthopedic Surgery: Yes (ORIF, RIGHT ANKLE) - Immunization History Immunization Up to Date: Yes - Suicide/Smoking/Psychosocial Hx Smoking History: Former smoker Have you smoked in the past 12 months: No If you are a former smoker, when did you quit?: 14 yrs Information on smoking cessation initiated: No 'Breaking Loose' booklet given: 05/04/12 Hx Alcohol Use: No Drug/Substance Use Hx: No Substance Use Type: None Hx Substance Use Treatment: No Review of Systems - Review of Systems Able to Perform ROS?: Yes Is the patient limited Mexican proficient: No Constitutional: No: Chills, Diaphoresis, Fever HEENTM: No: Nose Congestion, Throat Pain Respiratory: Yes: SOB with Exertion. No: Cough, Stridor, Wheezing, Hemoptysis Cardiac (ROS): No: Chest Pain, Edema, Lightheadedness, Palpitations, Chest Tightness ABD/GI: No: Abdominal Distended, Constipated, Diarrhea, Nausea, Rectal Bleeding , Vomiting, Abdominal cramping : No: Dysuria, Hematuria Musculoskeletal: Yes: Back Pain, Neck Pain Integumentary: Yes: Bruising (eccymosis to lower abdomen where she accidentally hit herself with a door). No: Rash Neurological: Yes: Dizziness (on exertion). No: Headache Hematologic/Lymphatic: Yes: Easy Bruising. No: Easy Bleeding *Physical Exam - Vital Signs Last Vital Signs Temp Pulse Resp BP Pulse Ox 98.4 F 99 H 20 112/72 94 L 08/05/17 18:30 08/05/17 18:30 08/05/17 18:30 08/05/17 18:30 08/05/17 18:30 - Physical Exam General Appearance: Yes: Nourished, Appropriately Dressed, Moderate Distress HEENT: positive: EOMI, Normal Voice, Pale Conjunctivae, Other (moist mucous membranes). negative: Scleral Icterus (R), Scleral Icterus (L), Nasal Congestion, Rhinorrhea Neck: positive: Trachea midline, Supple Respiratory/Chest: positive: Lungs Clear, Normal Breath Sounds. negative: Respiratory Distress, Accessory Muscle Use Cardiovascular: positive: Regular Rhythm, Regular Rate, S1, S2 Gastrointestinal/Abdominal: positive: Soft. negative: Distended, Guarding, Rebound, Tenderness Musculoskeletal: positive: Normal Inspection. negative: Decreased Range of Motion Extremity: positive: Normal Inspection. negative: Swelling, Calf Tenderness, Erythema Integumentary: positive: Normal Color, Dry, Warm Neurologic: positive: Fully Oriented, Alert, Normal Mood/Affect, Normal Response , Motor Strength 5/5 ED Treatment Course - LABORATORY CBC & Chemistry Diagram: 08/05/17 20:08/05/17 20:25 Medical Decision Making - Medical Decision Making 76yo F with PMH of anemia, COPD, thrombocytopenia, niddm, presents c/o continued back and neck pain. On exam, muscle knots are appreciated to Left trapesius muscle in suprascapular region. Pt was in ER on Tuesday for back pain , localized to the thoracic spine radiating to the Left flank. Spiral CT on Tuesday revealed no obstructive uropathy or urolithiasis. Thoracic spine CT on Tuesday revealed no disk herniation. 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 CMP -> unremarkable CBC with diff -> Hgb 6.3, Hct 19.2, platelets 72 (hx of thrombocytopenia noted) Pt needs to be admitted for blood transfusion. PRBCs 2U ordered. Dr. Adorno's service called. Dr. Espinal premium cancellation clerk. Per Dr. Espinal admission should go to hospitalists. [facility] accepted adm. *DC/Admit/Observation/Transfer Diagnosis at time of Disposition: Thrombocytopenia Anemia Qualifiers: Anemia type: unspecified type Qualified Code(s): D64.9 - Anemia, unspecified - Discharge Dispostion Condition at time of disposition: Guarded Admit: Yes - Referrals Referrals: Cody Adorno MD [Primary Care Provider] -
[2017-08-05] MEDS ORDERED: METHOCARBAMOL 500 MG TABLET ONE (20:11)
[2017-08-05 20:35] LABS: BASOPHIL 0.9 % (0-2.0); EOSINOPHIL 1.2 % (0-4.5); MCH 34.4 pg (25.7-33.7); MCHC 32.9 g/dl (32.0-36.0); MEAN CELL VOLUME 104.4 fl (80-96); MEAN PLT VOLUME 6.6 fl (7.5-11.1); NEUTROPHILS 74.8 % (42.8-82.8); PLATELET COUNT 72 K/MM3 (134-434); RDW 18.1 % (11.6-15.6); WHITE BLOOD COUNT 4.5 K/mm3 (4.0-10.0)
[2017-08-05] MEDS ORDERED: ONDANSETRON 4 MG/2 ML VIAL IVPUSH ONE (20:35)
[2017-08-05 21:13] LABS: ANION GAP 6 (8-16); CALCIUM 8.5 mg/dL (8.5-10.1); CO2 23 mmol/L (21-32); GLUCOSE,RANDOM 133 mg/dL (74-106); SGOT/AST 20 U/L (15-37); SGPT/ALT 18 U/L (12-78)
[2017-08-05 21:15] LABS: ALK PHOS 51 U/L (45-117); BILIRUBIN,TOTAL 0.6 mg/dL (0.2-1.0); TOT PROT 5.9 g/dl (6.4-8.2)
--- NOTE | 2017-08-05 22:27 | HP ---
CHIEF COMPLAINT: low hemoglobin, neck pain and shoulder pain PCP: Dr. Adorno HISTORY OF PRESENT ILLNESS: 76yo F with PMH of anemia, HTN,COPD, thrombocytopenia, NIDDM,duodenal ulcer presents c/o continued back and neck pain. Pt was in ER on Tuesday for same complaint. Pain started Tuesday and has been getting worse. On Tuesday in ER pt described pain in the thoracic spine radiating to the Left flank, she reports this pain persists. She also c/o of neck pain now, localized to the trapesius muscle in the suprascapular region. Pain is described as sharp, intermittent, non-radiating, rated 9/10. Pain is worse with movement. Pt took Acetaminophen/ Codeine prescribed by PCP (Dr. Adorno), but did not eat much today (toast and coffee) and is now having nausea and nbnb vomiting. PCP also prescribed Carisoprodol, but pt did not take this medication yet. Pt sleeps with air conditioner aimed at her back. Pt c/o dyspnea and dizziness on exertion. ER course was notable for: (1) NS 500ml bolus,Zofran 4mg IVpush for nausea, Robaxin 1,000mg PO for muscle relaxant (2)2 PRBCP transfusion, (3)EKG:NSR, RBBB with new Left anterior fascicular block Recent Travel:No PAST MEDICAL HISTORY: anemia, COPD, thrombocytopenia, NIDDM,HTN, dCHF, duodenal ulcer( s/p epi injection, cautery and endoclipping), 5 units of PRBCs, and 2 Units Platelets. PAST SURGICAL HISTORY: Cataract, Hernia, cholecystectomy, duodenal ulcer( s/p epi injection, cautery and endoclipping). Social History: Smokinpack/year, quit 14 years ago Alcohol:socially Drugs: never Family History: Non contributory Allergies No Known Drug Allergies Allergy (Verified 08/05/17 18:39) HOME MEDICATIONS: Home Medications Medication Instructions Recorded Ezetimibe/Simvastatin [Vytorin 1 each PO HS 05/03/12 10-20 mg Tablet] Ferrous Gluconate 325 mg PO DAILY 05/03/12 Glyburide 2.5 mg PO BID 05/03/12 Metoprolol Succinate [Toprol XL -] 50 mg PO HS 05/03/12 Pregabalin [Lyrica] 100 mg PO HS 05/03/12 Budesonide/Formeterol Fumarate 2 inh PO DAILY 12/31/13 [SYMBICORT 160/4.5mcg -] Metformin HCl [Glucophage -] 500 mg PO DAILY 12/31/13 Tiotropium [place] [Spiriva] 1 inh PO DAILY #1 01/02/14 Cholecalciferol (Vitamin D3) 1,000 unit PO DAILY 06/18/14 [Vitamin D3] Cyanocobalamin [Vitamin B12 -] 1,000 mcg PO DAILY 06/18/14 Ascorbate Calcium [Vitamin C] 500 mg PO DAILY 01/13/17 Aspirin Coated [Ecotrin -] 81 mg PO DAILY tablet.ec 01/18/17 Losartan Potassium [Cozaar -] 50 mg PO DAILY tablet 01/18/17 Acetaminophen [Tylenol] 650 mg PO PRN PRN 08/01/17 Folic Acid 1 mg PO DAILY 08/01/17 Furosemide [Lasix] 20 mg PO DAILY 08/01/17 Pantoprazole Sodium 40 mg PO DAILY 08/01/17 REVIEW OF SYSTEMS CONSTITUTIONAL: Absent: fever, chills, diaphoresis, generalized weakness, malaise, loss of appetite, weight change HEENT: Absent: rhinorrhea, nasal congestion, throat pain, throat swelling, difficulty swallowing, mouth swelling, ear pain, eye pain, visual changes CARDIOVASCULAR: Absent: chest pain, syncope, palpitations, irregular heart rate, lightheadedness , peripheral edema RESPIRATORY: Absent: cough, shortness of breath, dyspnea with exertion, orthopnea, wheezing, stridor, hemoptysis GASTROINTESTINAL: Absent: abdominal pain, abdominal distension, nausea, vomiting, diarrhea, constipation, melena, hematochezia, dark stool GENITOURINARY: Absent: dysuria, frequency, urgency, hesitancy, hematuria, flank pain, genital pain MUSCULOSKELETAL: Absent: myalgia, arthralgia, joint swelling, back pain, neck pain SKIN: Absent: rash, itching, pallor HEMATOLOGIC/IMMUNOLOGIC: Absent: easy bleeding, easy bruising, lymphadenopathy, frequent infections ENDOCRINE: Absent: unexplained weight gain, unexplained weight loss, heat intolerance, cold intolerance NEUROLOGIC: Absent: headache, focal weakness or paresthesias, dizziness, unsteady gait, seizure, mental status changes, bladder or bowel incontinence PSYCHIATRIC: Absent: anxiety, depression, suicidal or homicidal ideation, hallucinations. PHYSICAL EXAMINATION Vital Signs - 24 hr 08/05/17 18:30 Temperature 98.4 F Pulse Rate 99 H Respiratory 20 Rate Blood Pressure 112/72 O2 Sat by Pulse 94 L Oximetry (%) GENERAL: Awake, alert, and fully oriented, in no acute distress. HEAD: Normal with no signs of trauma. EYES: Pupils equal, round and reactive to light, sclera anicteric, conjunctiva pallor. EARS, Dry mucous membranes. NECK: Normal range of motion, supple without lymphadenopathy, JVD, or masses. LUNGS: Breath sounds equal, clear to auscultation bilaterally. No wheezes, and no crackles. No accessory muscle use. HEART: Regular rate and rhythm, normal S1 and S2, 2/6 blowing murmur radiated to neck ,no rub or gallop. ABDOMEN: Obese,soft, nontender, not distended, normoactive bowel sounds, no guarding, no rebound. MUSCULOSKELETAL: Normal range of motion at all joints. No bony deformities or tenderness. No CVA tenderness. UPPER EXTREMITIES: warm, well-perfused. No cyanosis. No clubbing. No peripheral edema. LOWER EXTREMITIES: warm, well-perfused. No calf tenderness. No peripheral edema. NEUROLOGICAL: Cranial nerves II-XII intact. Normal speech. Normal gait. PSYCHIATRIC: Cooperative. Good eye contact. Appropriate mood and affect. SKIN: Warm, dry, no rashes or lesions noted, normal capillary refill. Laboratory Results - last 24 hr 08/05/17 08/05/17 20:09 20:25 WBC 4.5 RBC 1.84 L D Hgb 6.3 L* D Hct 19.2 L D MCV 104.4 H MCH 34.4 H MCHC 32.9 RDW 18.1 H D Plt Count 72 L D MPV 6.6 L D Neutrophils % 74.8 Lymphocytes % 14.1 D Monocytes % 9.0 Eosinophils % 1.2 Basophils % 0.9 Sodium 140 Potassium 4.6 Chloride 111 H Carbon Dioxide 23 Anion Gap 6 L BUN 24 H Creatinine 1.0 Creat Clearance w eGFR 53.76 Random Glucose 133 H D Calcium 8.5 Total Bilirubin 0.6 AST 20 ALT 18 Alkaline Phosphatase 51 Total Protein 5.9 L Albumin 3.0 L CBC, [facility] 08/05/17 20:09 08/05/17 20:25 ASSESSMENT/PLAN: 76yo F with PMH of anemia, HTN, DCHF, ,COPD (on home O2 2L), thrombocytopenia , NIDDM,duodenal ulcer( s/p epi injection, cautery and endoclipping)chronic neck and shoulder pain, cirrhosis presents with c/o acute exacerbation of back and neck pain.She was found in Ed to have Hemoglobin of 6.3 and was admitted to med-surg for further evaluation. # sever symptomatic anemia, acute on chronic , * Likely secondary to acute blood loss from GI system ( duodenal ulcer vs AVM, VS diverticulosis) most likely vs anemia of chronic disease vs iron deficiency anemia * 2 large IV pore * 2 units PRBCPs, started in ED, consider lasix for more transfusion. * GI consult, consider EGD/colonoscopy * Protonix drip * b12 , Folate WNL from previous studies * check [place] , * refuse GURJIT * Check coags now * Check orthostatic vital signs * Follow post-transfusion CBC * Avoid ASA, Nsaids * * #elevated troponin, * likely troponin leak in setting of acute anemia. 0.1. * no signs of chest pain. * unlikely cardiac event. will check 2nd troponin * repeat cbc # lower back pain , neck Pain , Acute on chronic likely 2/2 degenerative arthritis * Physical exam WNL * Pain killer , muscle relaxant * monitor clinically * Improved in ER after robaxan # Constipation , * Last BM * Start Miralax #Thrombocytopenia, * PLT 72 * Chronic,had h/O platelets transfusion last November in setting of GI bleeding * Likely 2/2 liver cirrhosis * consider platelet transfusion * Monitor CBC # DM2, * Hold home meds * ISS * BGM * * # COPD, stable * no acute exacerbation * Duoneb * 2L O2 NC at home #CHF, diastolic, * Stable, no sign of volum overloaded * Strict I/O , daily weight * evaluate fluid volum after transfusion * consider lasix if more transfusion is needed * # HTN, * continue toprol 25 PO per her PCP (half of original dose 50 PO daily ) * hold other BP med valsartan, furosemide per PCP * # FEN * F: IV fluids 500 CC bolus ,hold fluids due to DCHF * E monitor * N: NPO till GI see her * # Proph: * DVT : High risk , SCDs , hold pharmalogical anticoagulation due to possible GI bleed * GI: Protonix drip * # Dispo * Admit to med-surg * Visit type - Emergency Visit Emergency Visit: Yes ED Registration Date: 08/06/17 Care time: The patient presented to the Emergency Department on the above date and was hospitalized for further evaluation of their emergent condition. - New Patient This patient is new to me today: Yes Date on this admission: 08/06/17 - Critical Care Critical Care patient: No
--- NOTE | 2017-08-05 22:27 | HP ---
Admitting History and Physical - Primary Care Physician PCP: Cody Adorno - Admission Chief Complaint: Neck and Back pain History of Present Illness: Briefly, 76 yo F h/o anemia, duodenal bleed s/p epi injection, cautery and endoclipping, liver cirrhosis, CAD, diastolic CHF, HTN, Chronic neck and shoulder pain, Aortic stenosis, COPD home O2 2L presented to the ED with worsening neck and back pain. The pain has been chronic but worsening. Prior imaging workup including thoracic spine CT and shoulder X-ray show degenerative changes but no acute pathology. In the ED, patient's symptom is greatly relieved with robaxin. However, Hgb was found to be 6.3 requiring admission for PRBC transfusion. - Past Medical History AND [employer]: Yes: Vertigo. No: Alzheimer's, Seizure, Syncope, TIA Cardiovascular: Yes: HTN, Hyperlipdemia, [place] Pulmonary: Yes: COPD. No: O2 Dependent Gastrointestinal: Yes: Diverticulosis, Hemorrhoids Hepatobiliary: Yes: Other (HSM) Heme/Onc: Yes: Thrombocytopenia Musculoskeletal: Yes: Osteoarthritis. No: Bursitis, Chronic low back pain, Hemiparesis, Hemiplegia, Paraplegia, Other Endocrine: Yes: Diabetes Mellitus - Past Surgical History Past Surgical History: Yes: Colonoscopy - Smoking History Smoking history: Former smoker Have you smoked in the past 12 months: No If you are a former smoker, when did you quit?: 14 yrs - Alcohol/Substance Use Hx Alcohol Use: No History of Substance Use: reports: None - Social History ADL: Independent History of Recent Travel: No Home Medications - Allergies Allergies/Adverse Reactions: Allergies Allergy/AdvReac Type Severity Reaction Status Date / Time No Known Drug Allergies Allergy Verified 08/05/17 18:39 - Home Medications Home Medications: Ambulatory Orders Ezetimibe/Simvastatin [Vytorin 10-20 mg Tablet] 1 each PO HS 05/03/12 Ferrous Gluconate 325 mg PO DAILY 05/03/12 Glyburide 2.5 mg PO BID 05/03/12 Metoprolol Succinate [Toprol XL -] 50 mg PO HS 05/03/12 Pregabalin [Lyrica] 100 mg PO HS 05/03/12 Budesonide/Formeterol Fumarate [SYMBICORT 160/4.5mcg -] 2 inh PO DAILY 12/31/13 Metformin HCl [Glucophage -] 500 mg PO DAILY 12/31/13 Tiotropium [place] [Spiriva] 1 inh PO DAILY #1 01/02/14 Cholecalciferol (Vitamin D3) [Vitamin D3] 1,000 unit PO DAILY 06/18/14 Cyanocobalamin [Vitamin B12 -] 1,000 mcg PO DAILY 06/18/14 Ascorbate Calcium [Vitamin C] 500 mg PO DAILY 01/13/17 Aspirin Coated [Ecotrin -] 81 mg PO DAILY tablet.ec 01/18/17 Losartan Potassium [Cozaar -] 50 mg PO DAILY tablet 01/18/17 Acetaminophen [Tylenol] 650 mg PO PRN PRN 08/01/17 Folic Acid 1 mg PO DAILY 08/01/17 Furosemide [Lasix] 20 mg PO DAILY 08/01/17 Pantoprazole Sodium 40 mg PO DAILY 08/01/17 Review of Systems - Review of Systems Constitutional: reports: No Symptoms Cardiovascular: reports: Shortness of Breath Respiratory: reports: SOB on Exertion Musculoskeletal: reports: Back Pain Neurological: reports: Dizziness. denies: Syncope Physical Examination Vital Signs: Vital Signs Temperature 98.4 F 08/05/17 18:30 Pulse Rate 99 H 08/05/17 18:30 Respiratory Rate 20 08/05/17 18:30 Blood Pressure 112/72 08/05/17 18:30 O2 Sat by Pulse Oximetry (%) 94 L 08/05/17 18:30 Constitutional: Yes: No Distress, Calm Cardiovascular: Yes: Regular Rate and Rhythm, S1, S2. No: JVD Respiratory: Yes: CTA Bilaterally Gastrointestinal: Yes: Normal Bowel Sounds, Soft Extremities: Yes: WNL Edema: No Peripheral Pulses WNL: Yes Neurological: Yes: Alert, Oriented Labs: CBC, BMP 08/05/17 20:09 08/05/17 20:25 Assessment/Plan 76 yo F h/o anemia, duodenal bleed s/p epi injection, cautery and endoclipping, liver cirrhosis, CAD, diastolic CHF, Chronic neck and shoulder pain, Aortic stenosis, COPD home O2 2L admitted for symptomatic anemia. Acute on chronic anemia - Symptomatic - Likely new duodenal bleed in the setting of chronic macrocytic anemia * normal B12/folate level and retic count on previous workup - Protonix gtt - Received 500ml IVF in ED - Maintain IV accesses - T&T and coag - Transfuse 2 PRBC - GI consult Neck/shoulder/back pain - Chronic 2/2 arthritic change - Resolved in ED after robaxin Thrombocytopenia - Chronic - Likely 2/2 liver cirrhosis NIDDM - BGM and SSI CHF, diastolic - Stable - Strict I/O and daily weight - Reassess fluid status after blood transfusion COPD - Stable - On home O2 2L FEN - High treshold for IVF due to dCHF - Cont. to monitor lytes - NPO Prophylaxis - DVT: SCDs - GI: on home PPI Dispo - Cont. to monitor on med-surg Yusuf Boyd Medicine PGY2 Pager:[phone] Visit type - Emergency Visit Emergency Visit: Yes ED Registration Date: 08/06/17 Care time: The patient presented to the Emergency Department on the above date and was hospitalized for further evaluation of their emergent condition. - New Patient This patient is new to me today: Yes Date on this admission: 08/06/17 - Critical Care Critical Care patient: No
[2017-08-06] MEDS ORDERED: ACETAMINOPHEN 325 MG TABLET (FP) PO PRN (00:30)
[2017-08-06] MEDS ORDERED: PANTOPRAZOLE SODIUM 80 MG in SODIUM CHLORIDE 100 ML IVPB SCH (00:30)
[2017-08-06] MEDS ORDERED: ONDANSETRON 8 MG TABLET (FP) PO PRN (01:37)
[2017-08-06] MEDS ORDERED: METHOCARBAMOL 500 MG TABLET PO ONE (01:39)
[2017-08-06] MEDS: PANTOPRAZOLE SODIUM 80 MG in SODIUM CHLORIDE 100 ML IVPB SCH ×4 (03:15→23:35)
--- NOTE | 2017-08-06 03:32 | PN ---
Teaching Attending Note Name of Resident: Yusuf Boyd ATTENDING PHYSICIAN STATEMENT I saw and evaluated the patient. I reviewed the resident's note and discussed the case with the resident. I agree with the resident's findings and plan as documented. OBJECTIVE: Last Vital Signs Temp Pulse Resp BP Pulse Ox 97.9 F 91 H 16 104/72 100 08/06/17 01:50 08/06/17 01:50 08/06/17 01:50 08/06/17 01:50 08/06/17 01:50 Laboratory Tests 01/13/17 08/01/17 08/05/17 15:39 15:45 20:09 WBC 4.1 D 5.2 4.5 RBC 3.61 D Hgb 10.1 L D 8.5 L D 6.3 L* D Hct 25.0 L D 19.2 L D Plt Count 95 L D 103 L 72 L D Room has melanic smell ASSESSMENT AND PLAN: The patient is a 76 year old female with a significant past medical history of chronic anemia, UGIB (duodenal bleed s/p epi injection, cautery and endoclipping ) CAD, HTN, diastolic CHF, aortic stenosis, chronic neck and shoulder pain, COPD (on home O2 2L), cirrhosis, who presented to the ED with an acute exacerbation of her chronic shoulder pain and was found to be anemic with compaints of increased chronic dyspnea. She is being admitted to inpatient services with symptomatic anemia. #Symptomatic anemia Suspected UGIB She is hemodynamically stable She has a chronic thrombocytopenia Transfuse 2 units now (already started in ED) Guiac stools now -- she adamantly refused rectal exam but will provide stool specimen Check coags now Check orthostatic vital signs Follow post-transfusion CBC NPO GI consult Protonix #Chronic pain Resolved in ED after Robaxin See resident note for full details
[2017-08-06] MEDS ORDERED: SENNOSIDES 8.6MG TABLET (FP) PO PRN (04:10)
[2017-08-06 07:22] LABS: MCH 33.6 pg (25.7-33.7); MCHC 33.1 g/dl (32.0-36.0); MEAN CELL VOLUME 101.6 fl (80-96); MEAN PLT VOLUME 6.9 fl (7.5-11.1); PLATELET COUNT 65 K/MM3 (134-434); RDW 17.6 % (11.6-15.6); WHITE BLOOD COUNT 3.4 K/mm3 (4.0-10.0)
[2017-08-06 07:52] LABS: INR 1.28 (0.82-1.09); PROTHROMBIN TIME (PATIENT) 14.1 SEC (9.98-11.88)
[2017-08-06] MEDS: INSULIN SLIDING SCALE (NOVOLOG) 1 VIAL SQ SCH ×4 (08:13→22:31)
[2017-08-06 08:26] LABS: ANION GAP 6 (8-16); CALCIUM 8.2 mg/dL (8.5-10.1); CO2 22 mmol/L (21-32); GLUCOSE,RANDOM 135 mg/dL (74-106); MAGNESIUM 1.8 mg/dL (1.8-2.4); PHOSPHOROUS 4.2 mg/dL (2.5-4.9); SGPT/ALT 18 U/L (12-78)
[2017-08-06 08:31] LABS: ALK PHOS 50 U/L (45-117); BILIRUBIN,TOTAL 0.6 mg/dL (0.2-1.0); CPK 49 IU/L (26-192); CREATININE 0.9 mg/dL (0.55-1.02); SGOT/AST 19 U/L (15-37); TOT PROT 5.8 g/dl (6.4-8.2)
[2017-08-06] MEDS: ACETAMINOPHEN 325 MG TABLET (FP) PO PRN (08:59)
[2017-08-06] MEDS: CYANOCOBALAMIN 1,000 MCG TABLET (FP) PO SCH (09:00)
[2017-08-06] MEDS: FOLIC ACID 1 MG TABLET (FP) PO SCH (09:00)
[2017-08-06] MEDS: ASCORBIC ACID 500 MG TABLET (FP) PO SCH (09:00)
[2017-08-06] MEDS: CHOLECALCIFEROL (VITAMIN D3) 1,000 UNIT TABLET (FP) PO SCH (09:00)
[2017-08-06] MEDS ORDERED: FLU VACCINE QUAD 60 MCG/0.5 ML (MDV 17-18) IM ONE (09:00)
--- NOTE | 2017-08-06 09:47 | PN ---
Progress Note (short form) - Note Progress Note: currently asymptomatic. s/p she was feeling short of breath the past week but contributed it to her shoulder pain. states this resolved with the blood transfusion. states her shoulder pain was bothering her all week which prompted her to take aleive 200mg x3 and asa 325mg x1 on top of her daily baby asa. did have a black BM on but is also on iron supplements and does experience intermittent black BM. states she has intermittent constipation and has intermittent straining. denies CP, SOB< fever, chills, N/V/C/D, BRBPR, hemoptysis, hemetemesis or hematuria, or fatigue. no BM since . has not had repeat EGD since 11/2016 Current Medications Generic Name Dose Route Start Last Admin Trade Name Freq PRN Reason Stop Dose Admin Acetaminophen 650 mg 08/06/17 04:44 08/06/17 08:59 Tylenol - PO 650 mg Q6H PRN Administration PAIN Aclidinium [place] 1 puff 08/06/17 10:00 Tudorza - IH BID KRIS Ascorbic Acid 500 mg 08/06/17 10:00 08/06/17 09:00 Vitamin C - PO 500 mg DAILY KRIS Administration Atorvastatin Calcium 10 mg 08/06/17 22:00 Lipitor - PO HS KRIS Budesonide/Formoterol Fumarate 2 puff 08/06/17 10:00 Symbicort 160/4.5mcg - IH BID KRIS Cholecalciferol 1,000 unit 08/06/17 10:00 08/06/17 09:00 Vitamin D3 - PO 1,000 unit DAILY KRIS Administration Cyanocobalamin 1,000 mcg 08/06/17 10:00 08/06/17 09:00 Vitamin B12 - PO 1,000 mcg DAILY KRIS Administration Ezetimibe 10 mg 08/06/17 22:00 Zetia - PO HS KRIS Ferrous Gluconate 324 mg 08/06/17 10:00 Fergon - PO DAILY KRIS Folic Acid 1 mg 08/06/17 10:00 08/06/17 09:00 Folic Acid - PO 1 mg DAILY KRIS Administration Pantoprazole Sodium 80 mg/ 100 mls @ 10 mls/hr 08/06/17 00:45 08/06/17 03:15 Sodium Chloride IVPB Not Given Q10H KRIS 8 MG/HR Insulin Aspart 1 vial 08/06/17 07:00 08/06/17 08:13 Novolog Vial Sliding Scale - SQ Not Given ACHS KRIS Protocol Metoprolol Succinate 25 mg 08/06/17 22:00 Toprol Xl - PO HS KRIS Ondansetron HCl 8 mg 08/06/17 01:37 Zofran - PO Q8H PRN NAUSEA AND/OR VOMITING Pregabalin 100 mg 08/06/17 22:00 Lyrica - PO HS KRIS Senna 2 tab 08/06/17 04:10 Senna - PO HS PRN CONSTIPATION Last Vital Signs Temp Pulse Resp BP Pulse Ox 97.5 F L 92 H 18 125/67 100 08/06/17 09:10 08/06/17 09:10 08/06/17 09:10 08/06/17 09:10 08/06/17 03:00 General NAD CV S1 S2 +mumur Lungs CTA B/L no wheezing/rales/rhonchi Abdomen soft NT/ND obese Extremities no pedal edema CBCD WBC 3.4 K/mm3 (4.0-10.0) L 08/06/17 06:00 RBC 2.12 M/mm3 (3.60-5.2) L 08/06/17 06:00 Hgb 7.1 GM/dL (10.7-15.3) L D 08/06/17 06:00 Hct 21.5 % (32.4-45.2) L 08/06/17 06:00 MCV 101.6 fl (80-96) H 08/06/17 06:00 MCHC 33.1 g/dl (32.0-36.0) 08/06/17 06:00 RDW 17.6 % (11.6-15.6) H 08/06/17 06:00 Plt Count 65 K/MM3 (134-434) L 08/06/17 06:00 MPV 6.9 fl (7.5-11.1) L 08/06/17 06:00 CMP Sodium 142 mmol/L (136-145) 08/06/17 06:00 Potassium 4.8 mmol/L (3.5-5.1) 08/06/17 06:00 Chloride 114 mmol/L (98-107) H 08/06/17 06:00 Carbon Dioxide 22 mmol/L (21-32) 08/06/17 06:00 Anion Gap 6 (8-16) L 08/06/17 06:00 BUN 21 mg/dL (7-18) H 08/06/17 06:00 Creatinine 0.9 mg/dL (0.55-1.02) 08/06/17 06:00 Creat Clearance w eGFR > 60 (>60) 08/06/17 06:00 Random Glucose 135 mg/dL (74-106) H 08/06/17 06:00 Calcium 8.2 mg/dL (8.5-10.1) L 08/06/17 06:00 Total Bilirubin 0.6 mg/dL (0.2-1.0) 08/06/17 06:00 AST 19 U/L (15-37) 08/06/17 06:00 ALT 18 U/L (12-78) 08/06/17 06:00 Alkaline Phosphatase 50 U/L (45-117) 08/06/17 06:00 Total Protein 5.8 g/dl (6.4-8.2) L 08/06/17 06:00 Albumin 3.0 g/dl (3.4-5.0) L 08/06/17 06:00 CARDIAC ENZYMES Creatine Kinase 49 IU/L (26-192) 08/06/17 06:00 Troponin I 0.10 ng/ml (0.00-0.05) H 08/06/17 06:00 76 year old female with a significant past medical history of chronic anemia, UGIB (duodenal bleed s/p epi injection, cautery and endoclipping) CAD, HTN, diastolic CHF, aortic stenosis, chronic neck and shoulder pain, COPD (on home O2 2L), cirrhosis, who presented to the ED with an acute exacerbation of her chronic shoulder pain and was found to be anemic with complaints of increased chronic dyspnea. 1. symptomatic anemia- currently transfusing 2nd PRBC. will check CBC post-txn. if more blood products needed will consider lasix prior. concern for re- bleeding dieulafoy lesion from November 2016 vs gastric ulcer with increase NSAID use however did not take significant amount. NPO, PPI ggt, GI evaluation for possible repeat EGD. pt adamantly refused GURJIT or evaluation. offers to give stool sample. check FOBT. hold asa and NSAID products 2. Constipation- miralax x1. 3. Chronic thrombocytopenia- lower than previous baseline. as per pt was recently checked in office and told it was "higher than usual". in setting of bleeding opted to transfuse but will check on repeat cbc if needed 4. elevated troponin-likely troponin leak in setting of acute anemia. 0.1. no signs of chest pain. had elevated troponin during previous hospital course with no intervention. unlikely cardiac event. will check 2nd troponin with repeat cbc 5. Shoulder pain- chronic pain worse this past week. now resolved. cont muscle relaxer prn 6. COPD on home O2- no signs of exacerbation. cont inhalers. supplemental o2 7. diastolic CHF- no sign of volume overload. monitor closely with blood transfusions. lasix prn. hold asa 8. DVT ppx- SCD Visit type - Emergency Visit Emergency Visit: Yes ED Registration Date: 08/06/17 Care time: The patient presented to the Emergency Department on the above date and was hospitalized for further evaluation of their emergent condition. - New Patient This patient is new to me today: Yes Date on this admission: 08/06/17 - Critical Care Critical Care patient: No - Discharge Referral [facility]erred to [facility] No
[2017-08-06] MEDS ORDERED: POLYETHYLENE GLYCOL 3350 119 GM BTL PO ONE (10:10)
[2017-08-06] MEDS: FERROUS GLUCONATE 324 MG TAB (FP) PO SCH (12:00)
[2017-08-06] MEDS: ACLIDINIUM BROMIDE 400 MCG/INH AERO.POWD IH SCH ×2 (12:44→22:31)
[2017-08-06] MEDS: BUDESONIDE/FORMETEROL FUMARATE 160/4.5 mcg INHALER IH SCH ×2 (12:45→22:31)
--- NOTE | 2017-08-06 12:54 | CON.GI ---
Consult Consult Specialty:: Gastroenterology ( covering Dr Reinoso) Referred by:: Dr Adorno Reason for Consultation:: Anemia - History of Present Illness Chief Complaint: Back pain History of Present Illness: 76F is admitted for neck and back pain and is found to have Hb 6. 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 Colonoscopy on 12/13/16 revealed a right colon angiodysplasia and left colon diverticulosis. She has not had a BM since 08/04 which was dark. She is taking iron and didn't think it looked any different than her other recent stools. She did vomit bilious material yesterday after getting a narcotic analgesic but not since. 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), Cholecystitis (had GB surgery), Other (HSM) ...: No Heme/Onc: Yes: Anemia, Thrombocytopenia Musculoskeletal: Yes: Osteoarthritis Endocrine: Yes: Diabetes Mellitus - Past Surgical History Past Surgical History: Yes: Appendectomy (during cholecystectomy ?), Carotid Endarterectomy (left), Cataract Removal, Cholecystectomy, Colonoscopy, Hernia Repair (Umbilical hernia repair), Tonsillectomy, Upper Endoscopy Additional Surgical History: Left carotid endarterectomy - Alcohol/Substance Use Hx Alcohol Use: No History of Substance Use: reports: None - Smoking History Smoking history: Former smoker Have you smoked in the past 12 months: No If you are a former smoker, when did you quit?: 14 yrs- 2002 - Social History Usual Living Arrangement: With Spouse (lives with who is disabled (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), in apartment with 20 steps total to enter (3 into building, 4 to lobby, then 7x2 to apartment), previously Independent in ADLs, ambulated with SC) ADL: Independent 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 Place of : [place] History of Recent Travel: No Home Medications - Allergies Allergies/Adverse Reactions: Allergies Allergy/AdvReac Type Severity Reaction Status Date / Time No Known Drug Allergies Allergy Verified 08/05/17 18:39 - Home Medications Home Medications: Ambulatory Orders Ezetimibe/Simvastatin [Vytorin 10-20 mg Tablet] 1 each PO HS 05/03/12 Ferrous Gluconate 325 mg PO DAILY 05/03/12 Glyburide 2.5 mg PO BID 05/03/12 Metoprolol Succinate [Toprol XL -] 50 mg PO HS 05/03/12 Pregabalin [Lyrica] 100 mg PO HS 05/03/12 Budesonide/Formeterol Fumarate [SYMBICORT 160/4.5mcg -] 2 inh PO DAILY 12/31/13 Metformin HCl [Glucophage -] 500 mg PO DAILY 12/31/13 Tiotropium [place] [Spiriva] 1 inh PO DAILY #1 01/02/14 Cholecalciferol (Vitamin D3) [Vitamin D3] 1,000 unit PO DAILY 06/18/14 Cyanocobalamin [Vitamin B12 -] 1,000 mcg PO DAILY 06/18/14 Ascorbate Calcium [Vitamin C] 500 mg PO DAILY 01/13/17 Aspirin Coated [Ecotrin -] 81 mg PO DAILY tablet.ec 01/18/17 Losartan Potassium [Cozaar -] 50 mg PO DAILY tablet 01/18/17 Acetaminophen [Tylenol] 650 mg PO PRN PRN 08/01/17 Folic Acid 1 mg PO DAILY 08/01/17 Furosemide [Lasix] 20 mg PO DAILY 08/01/17 Pantoprazole Sodium 40 mg PO DAILY 08/01/17 Family Disease History - Family Disease History Family Disease History: CA: Father (asbestos related lung cancer), Other: Mother ( don her 80s on inanition) Review of Systems - Review of Systems Constitutional: reports: No Symptoms Eyes: reports: No Symptoms HENT: reports: Other (neck pain) Neck: reports: No Symptoms Cardiovascular: reports: No Symptoms Respiratory: reports: No Symptoms Gastrointestinal: reports: No Symptoms Genitourinary: reports: No Symptoms Musculoskeletal: reports: Back Pain Neurological: reports: No Symptoms Physical Exam-GI Vital Signs: Vital Signs Temperature 97.5 F L 08/06/17 09:10 Pulse Rate 92 H 08/06/17 09:10 Respiratory Rate 18 08/06/17 09:10 Blood Pressure 125/67 08/06/17 09:10 O2 Sat by Pulse Oximetry (%) 100 08/06/17 03:00 CBC,CMP WBC 3.4 K/mm3 (4.0-10.0) L 08/06/17 06:00 RBC 2.12 M/mm3 (3.60-5.2) L 08/06/17 06:00 Hgb 7.1 GM/dL (10.7-15.3) L D 08/06/17 06:00 Hct 21.5 % (32.4-45.2) L 08/06/17 06:00 MCV 101.6 fl (80-96) H 08/06/17 06:00 MCH 33.6 pg (25.7-33.7) 08/06/17 06:00 MCHC 33.1 g/dl (32.0-36.0) 08/06/17 06:00 RDW 17.6 % (11.6-15.6) H 08/06/17 06:00 Plt Count 65 K/MM3 (134-434) L 08/06/17 06:00 MPV 6.9 fl (7.5-11.1) L 08/06/17 06:00 Neutrophils % 74.8 % (42.8-82.8) 08/05/17 20:09 Lymphocytes % 14.1 % (8-40) D 08/05/17 20:09 Monocytes % 9.0 % (3.8-10.2) 08/05/17 20:09 Eosinophils % 1.2 % (0-4.5) 08/05/17 20:09 Basophils % 0.9 % (0-2.0) 08/05/17 20:09 Sodium 142 mmol/L (136-145) 08/06/17 06:00 Potassium 4.8 mmol/L (3.5-5.1) 08/06/17 06:00 Chloride 114 mmol/L (98-107) H 08/06/17 06:00 Carbon Dioxide 22 mmol/L (21-32) 08/06/17 06:00 Anion Gap 6 (8-16) L 08/06/17 06:00 BUN 21 mg/dL (7-18) H 08/06/17 06:00 Creatinine 0.9 mg/dL (0.55-1.02) 08/06/17 06:00 Creat Clearance w eGFR > 60 (>60) 08/06/17 06:00 POC Glucometer 164 UNITS (()) 08/06/17 08:12 Random Glucose 135 mg/dL (74-106) H 08/06/17 06:00 Calcium 8.2 mg/dL (8.5-10.1) L 08/06/17 06:00 Phosphorus 4.2 mg/dL (2.5-4.9) 08/06/17 06:00 Magnesium 1.8 mg/dL (1.8-2.4) 08/06/17 06:00 Total Bilirubin 0.6 mg/dL (0.2-1.0) 08/06/17 06:00 AST 19 U/L (15-37) 08/06/17 06:00 ALT 18 U/L (12-78) 08/06/17 06:00 Alkaline Phosphatase 50 U/L (45-117) 08/06/17 06:00 Creatine Kinase 49 IU/L (26-192) 08/06/17 06:00 Troponin I 0.10 ng/ml (0.00-0.05) H 08/06/17 06:00 Total Protein 5.8 g/dl (6.4-8.2) L 08/06/17 06:00 Albumin 3.0 g/dl (3.4-5.0) L 08/06/17 06:00 Current Medications Generic Name Dose Route Start Last Admin Trade Name Freq PRN Reason Stop Dose Admin Acetaminophen 650 mg 08/06/17 04:44 08/06/17 08:59 Tylenol - PO 650 mg Q6H PRN Administration PAIN Aclidinium [place] 1 puff 08/06/17 10:00 08/06/17 12:44 Tudorza - IH 1 puff BID KRIS Administration Ascorbic Acid 500 mg 08/06/17 10:00 08/06/17 09:00 Vitamin C - PO 500 mg DAILY KRIS Administration Atorvastatin Calcium 10 mg 08/06/17 22:00 Lipitor - PO [facility] Budesonide/Formoterol Fumarate 2 puff 08/06/17 10:00 08/06/17 12:45 Symbicort 160/4.5mcg - IH 2 puff BID KRIS Administration Cholecalciferol 1,000 unit 08/06/17 10:00 08/06/17 09:00 Vitamin D3 - PO 1,000 unit DAILY KRIS Administration Cyanocobalamin 1,000 mcg 08/06/17 10:00 08/06/17 09:00 Vitamin B12 - PO 1,000 mcg DAILY KRIS Administration Ezetimibe 10 mg 08/06/17 22:00 Zetia - PO HS KRIS Ferrous Gluconate 324 mg 08/06/17 10:00 Fergon - PO DAILY KRIS Folic Acid 1 mg 08/06/17 10:00 08/06/17 09:00 Folic Acid - PO 1 mg DAILY KRIS Administration Pantoprazole Sodium 80 mg/ 100 mls @ 10 mls/hr 08/06/17 00:45 08/06/17 03:15 Sodium Chloride IVPB Not Given Q10H KRIS 8 MG/HR Insulin Aspart 1 vial 08/06/17 07:00 08/06/17 12:49 Novolog Vial Sliding Scale - SQ Not Given ACHS [facility] Protocol Metoprolol Succinate 25 mg 08/06/17 22:00 Toprol Xl - PO HS KRIS Ondansetron HCl 8 mg 08/06/17 01:37 Zofran - PO Q8H PRN NAUSEA AND/OR VOMITING Pregabalin 100 mg 08/06/17 22:00 Lyrica - PO HS KRIS Senna 2 tab 08/06/17 04:10 Senna - PO HS PRN CONSTIPATION Constitutional: Yes: No Distress Eyes: Yes: Conjunctiva Clear HENT: Yes: Normocephalic Neck: Yes: Trachea Midline, Other (left neck inicison and bruit) Cardiovascular: Yes: Regular Rate and Rhythm, Murmur (3/6 JOSE at Base and 2/6 holosystolic murmur at apex) Respiratory: Yes: CTA Bilaterally Gastrointestinal Inspection: Yes: Scars (periumbilical and oblique RUQ) ...Auscultate: Yes: Normoactive Bowel Sounds ...Palpate: Yes: Soft, Other (nontender) ...Rectal Exam: Yes: Guaiac Positive (black pasty strongly guaiaic positive stool) Edema: No Neurological: Yes: Alert, Oriented Psychiatric: Yes: Alert Labs: CBC, BMP 08/06/17 06:00 08/06/17 06:00 INR, PTT INR 1.28 (0.82-1.09) H 08/06/17 06:00 Laboratory Tests 08/05/17 08/05/17 08/06/17 20:09 20:25 06:00 Hgb 6.3 L* D MCV 104.4 H Plt Count 72 L D BUN 24 H Creatinine 1.0 Total Bilirubin 0.6 AST 19 ALT 18 Alkaline Phosphatase 50 Albumin 3.0 L 08/06/17 06:00 Hgb 7.1 L D MCV Plt Count 65 L BUN Creatinine Total Bilirubin AST ALT Alkaline Phosphatase Albumin Problem List - Problems (1) Dieulafoy lesion of duodenum Code(s): K31.82 - DIEULAFOY LESION (HEMORRHAGIC) OF STOMACH AND DUODENUM (2) Cirrhosis of liver Code(s): K74.60 - UNSPECIFIED CIRRHOSIS OF LIVER (3) Diverticulosis of colon Code(s): K57.30 - DVRTCLOS OF LG INT W/O PERFORATION OR ABSCESS W/O BLEEDING (4) Angiodysplasia of colon Code(s): K55.20 - ANGIODYSPLASIA OF COLON WITHOUT HEMORRHAGE Assessment/Plan Bev's anemia is due to recurrent bleeding. Will need to stop her aspirin and repeat an EGD to exclude recurrent Dieulafoy, portal gastropathy and varices. Will do emergently if necessary but given indolent nature of bleeding hope to defer until Dr Reinoso returns on 08/08.
[2017-08-06 13:35] LABS: MCH 32.8 pg (25.7-33.7); MCHC 32.9 g/dl (32.0-36.0); MEAN CELL VOLUME 99.7 fl (80-96); MEAN PLT VOLUME 6.6 fl (7.5-11.1); PLATELET COUNT 75 K/MM3 (134-434); RDW 17.5 % (11.6-15.6); WHITE BLOOD COUNT 4.6 K/mm3 (4.0-10.0)
[2017-08-06] MEDS ORDERED: LIDOCAINE 5% TOPICAL PATCH TP ONE (18:44)
[2017-08-06] MEDS ORDERED: PREGABALIN 100 MG CAPSULE PO SCH (22:00)
[2017-08-06] MEDS ORDERED: LIDOCAINE PATCH REMOVAL MC SCH (22:00)
[2017-08-06] MEDS ORDERED: PT OWN MED DRAWER 7, Y5N ONE (22:13)
[2017-08-06] MEDS: PREGABALIN 50 MG CAPSULE PO SCH (22:26)
[2017-08-06] MEDS: EZETIMIBE 10 MG TABLET (FP) PO SCH (22:26)
[2017-08-06] MEDS: ATORVASTATIN CA 10 MG TABLET (FP) PO SCH (22:26)
[2017-08-06] MEDS: METOPROLOL SUCCINATE 25 MG TAB.SR.24H (FP) PO SCH (22:26)
[2017-08-07] MEDS: INSULIN SLIDING SCALE (NOVOLOG) 1 VIAL SQ SCH ×4 (06:58→22:50)
[2017-08-07] MEDS: PANTOPRAZOLE SODIUM 80 MG in SODIUM CHLORIDE 100 ML IVPB SCH ×2 (06:59→16:58)
[2017-08-07 07:22] LABS: FIBROSURE ASH COMMENT SEE FILE COPY
[2017-08-07 07:39] LABS: EOSINOPHIL 3.8 % (0-4.5); MCH 33.7 pg (25.7-33.7); MCHC 33.8 g/dl (32.0-36.0); MEAN CELL VOLUME 99.4 fl (80-96); MEAN PLT VOLUME 6.8 fl (7.5-11.1); NEUTROPHILS 60.1 % (42.8-82.8); PLATELET COUNT 57 K/MM3 (134-434); RDW 19.3 % (11.6-15.6); WHITE BLOOD COUNT 2.7 K/mm3 (4.0-10.0)
[2017-08-07 07:47] LABS: INR 1.29 (0.82-1.09); PROTHROMBIN TIME (PATIENT) 14.3 SEC (9.98-11.88)
[2017-08-07 08:15] LABS: ANION GAP 5 (8-16); CALCIUM 8.3 mg/dL (8.5-10.1); CO2 25 mmol/L (21-32); CREATININE 0.9 mg/dL (0.55-1.02); FERRITIN 32.777 ng/ml (6.9-282.5); GLUCOSE,RANDOM 140 mg/dL (74-106)
--- NOTE | 2017-08-07 08:44 | EKG ---
Test Reason : Blood Pressure : / mmHG Vent. Rate : 094 BPM Atrial Rate : 094 BPM P-R Int : 140 ms QRS Dur : 146 ms QT Int : 394 ms P-R-T Axes : 073 -63 051 degrees QTc Int : 492 ms NORMAL SINUS RHYTHM RIGHT BUNDLE BRANCH BLOCK LEFT ANTERIOR FASCICULAR BLOCK BIFASCICULAR BLOCK ABNORMAL ECG Confirmed by MD SAI, JAMES ([id number]) on 08/07/2017 8:44:05 AM Referred By: Confirmed By:JAMES GIBBS MD
[2017-08-07] MEDS: ASCORBIC ACID 500 MG TABLET (FP) PO SCH (10:53)
[2017-08-07] MEDS: FERROUS GLUCONATE 324 MG TAB (FP) PO SCH (10:53)
[2017-08-07] MEDS: CHOLECALCIFEROL (VITAMIN D3) 1,000 UNIT TABLET (FP) PO SCH (10:53)
[2017-08-07] MEDS: ACETAMINOPHEN 325 MG TABLET (FP) PO PRN ×2 (10:53→20:57)
[2017-08-07] MEDS: CYANOCOBALAMIN 1,000 MCG TABLET (FP) PO SCH (10:54)
[2017-08-07] MEDS: FOLIC ACID 1 MG TABLET (FP) PO SCH (10:54)
[2017-08-07] MEDS: ACLIDINIUM BROMIDE 400 MCG/INH AERO.POWD IH SCH ×2 (10:55→22:25)
[2017-08-07] MEDS: BUDESONIDE/FORMETEROL FUMARATE 160/4.5 mcg INHALER IH SCH ×2 (10:56→22:25)
--- NOTE | 2017-08-07 11:24 | PN ---
Physical Exam: SUBJECTIVE: Patient seen and examined She has no new complaints. Denies new episodes of vomiting , denies blood in stool . Denies dizziness OBJECTIVE: Vital Signs Period Temp Pulse Resp BP Sys/Rider Pulse Ox Last 24 Hr 97.5 F-98.2 F 84-89 20-20 109-126/61-73 94 GENERAL: The patient is awake, alert, and fully oriented, in no acute distress. HEAD: Normal with no signs of trauma. EYES: PERRL, extraocular movements intact, sclera anicteric, conjunctiva clear. No ptosis. ENT: Ears normal, nares patent, oropharynx clear without exudates, moist mucous membranes. NECK: Trachea midline, full range of motion, supple. LUNGS: Breath sounds equal, clear to auscultation bilaterally, no wheezes, no crackles, no accessory muscle use. HEART: Regular rate and rhythm, S1, S2 without murmur, rub or gallop. ABDOMEN: Soft, nontender, nondistended, normoactive bowel sounds, no guarding, no rebound, no hepatosplenomegaly, no masses. EXTREMITIES: 2+ pulses, warm, well-perfused, no edema. NEUROLOGICAL: Cranial nerves II through XII grossly intact. Normal speech, gait not observed. PSYCH: Normal mood, normal affect. SKIN: Warm, dry, normal turgor, no rashes or lesions noted Laboratory Results - last 24 hr 08/06/17 08/06/17 08/06/17 11:18 13:30 13:30 WBC 4.6 D RBC 2.62 L D Hgb 8.6 L D Hct 26.1 L D MCV 99.7 H MCH 32.8 MCHC 32.9 RDW 17.5 H Plt Count 75 L MPV 6.6 L Neutrophils % Lymphocytes % Monocytes % Eosinophils % Basophils % Retic Count PT with INR INR Sodium Potassium Chloride Carbon Dioxide Anion Gap BUN Creatinine POC Glucometer 153 Random Glucose Calcium Ferritin Troponin I 0.09 H 08/06/17 08/06/17 08/07/17 17:10 22:30 06:20 WBC 2.7 L D RBC 2.37 L Hgb 8.0 L Hct 23.6 L MCV 99.4 H MCH 33.7 MCHC 33.8 RDW 19.3 H D Plt Count 57 L D MPV 6.8 L Neutrophils % 60.1 Lymphocytes % 26.0 D Monocytes % 9.1 Eosinophils % 3.8 D Basophils % 1.0 Retic Count 9.06 H D PT with INR INR Sodium Potassium Chloride Carbon Dioxide Anion Gap BUN Creatinine POC Glucometer 134 111 Random Glucose Calcium Ferritin Troponin I 08/07/17 08/07/17 08/07/17 06:20 06:20 06:58 WBC RBC Hgb Hct MCV MCH MCHC RDW Plt Count MPV Neutrophils % Lymphocytes % Monocytes % Eosinophils % Basophils % Retic Count PT with INR 14.30 H INR 1.29 H Sodium 144 Potassium 4.5 Chloride 114 H Carbon Dioxide 25 Anion Gap 5 L BUN 16 D Creatinine 0.9 POC Glucometer 148 Random Glucose 140 H Calcium 8.3 L Ferritin 32.777 Troponin I Active Medications Generic Name Dose Route Start Last Admin Trade Name Freq PRN Reason Stop Dose Admin Acetaminophen 650 mg 08/06/17 04:44 08/07/17 10:53 Tylenol - PO 650 mg Q6H PRN Administration PAIN Aclidinium [place] 1 puff 08/06/17 10:00 08/07/17 10:55 Tudorza - IH 1 puff BID KRIS Administration Ascorbic Acid 500 mg 08/06/17 10:00 08/07/17 10:53 Vitamin C - PO 500 mg DAILY KRIS Administration Atorvastatin Calcium 10 mg 08/06/17 22:00 08/06/17 22:26 Lipitor - PO 10 mg HS KRIS Administration Budesonide/Formoterol Fumarate 2 puff 08/06/17 10:00 08/07/17 10:56 Symbicort 160/4.5mcg - IH 2 puff BID KRIS Administration Cholecalciferol 1,000 unit 08/06/17 10:00 08/07/17 10:53 Vitamin D3 - PO 1,000 unit DAILY KRIS Administration Cyanocobalamin 1,000 mcg 08/06/17 10:00 08/07/17 10:54 Vitamin B12 - PO 1,000 mcg DAILY KRIS Administration Ezetimibe 10 mg 08/06/17 22:00 08/06/17 22:26 Zetia - PO 10 mg HS KRIS Administration Ferrous Gluconate 324 mg 08/06/17 10:00 08/07/17 10:53 Fergon - PO 324 mg DAILY KRIS Administration Folic Acid 1 mg 08/06/17 10:00 08/07/17 10:54 Folic Acid - PO 1 mg DAILY KRIS Administration Pantoprazole Sodium 80 mg/ 100 mls @ 10 mls/hr 08/06/17 00:45 08/07/17 06:59 Sodium Chloride IVPB Not Given Q10H KRIS 8 MG/HR Insulin Aspart 1 vial 08/06/17 07:00 08/07/17 11:01 Novolog Vial Sliding Scale - SQ Not Given ACHS KRIS Protocol Metoprolol Succinate 25 mg 08/06/17 22:00 08/06/17 22:26 Toprol Xl - PO 25 mg HS KRIS Administration Miscellaneous 1 each 08/06/17 22:00 08/06/17 23:02 Lidoderm Patch Removal MC Not Given DAILY@2200 KRIS Ondansetron HCl 8 mg 08/06/17 01:37 Zofran - PO Q8H PRN NAUSEA AND/OR VOMITING Pregabalin 100 mg 08/06/17 22:30 08/06/17 22:26 Lyrica - PO 100 mg HS KRIS Administration Senna 2 tab 08/06/17 04:10 Senna - PO HS PRN CONSTIPATION ASSESSMENT/PLAN: 76 year old female with prior history of Dieulafoy lesion of the duodenum and colonic angiodysplasia diagnosed in 11/2016 that presented on 08/05 with back pain and was found to have HB pf 6.2. 1. GI bleed - possibly due to bleeding Dieulafoy lesion. S/p 2 units of PRBC - for endoscopy in AM - hold aspirin 2. Constipation - resolved 3. Back and shoulder pain - improved on muscle relaxants 4. COPD - stable Dispo : EGD on 08/08 Visit type - Emergency Visit Emergency Visit: No - New Patient This patient is new to me today: Yes Date on this admission: 08/07/17 - Critical Care Critical Care patient: No
--- NOTE | 2017-08-07 17:48 | PN ---
GI Progress Note Subjective: GI NOte( covering Dr Reinoso) Hb slightly decreased but no BM overnight. NO vomiting. - Objective Vital Signs: Vital Signs Temperature 98 F 08/07/17 14:31 Pulse Rate 78 08/07/17 14:31 Respiratory Rate 20 08/07/17 14:31 Blood Pressure 121/70 08/07/17 14:31 O2 Sat by Pulse Oximetry (%) 94 L 08/06/17 21:00 Laboratory Tests 08/05/17 08/06/17 08/06/17 20:09 06:00 13:30 Hgb 6.3 L* D 7.1 L D 8.6 L D Retic Count 08/07/17 06:20 Hgb 8.0 L Retic Count 9.06 H D Constitutional: Calm ...Auscultate: Yes: Normoactive Bowel Sounds ...Palpate: Yes: Soft, Other (nontender) Labs: CBC, BMP 08/07/17 06:20 08/07/17 06:20 INR, PTT INR 1.29 (0.82-1.09) H 08/07/17 06:20 Assessment/Plan Bev's anemia is due to recurrent bleeding. Anticipate EGD to exclude recurrent Dieulafoy, portal gastropathy and varices when Dr Reinoso returns on 08/08. Continue PPI Problem List - Problems (1) Dieulafoy lesion of duodenum Code(s): K31.82 - DIEULAFOY LESION (HEMORRHAGIC) OF STOMACH AND DUODENUM (2) Cirrhosis of liver Code(s): K74.60 - UNSPECIFIED CIRRHOSIS OF LIVER (3) Diverticulosis of colon Code(s): K57.30 - DVRTCLOS OF LG INT W/O PERFORATION OR ABSCESS W/O BLEEDING (4) Angiodysplasia of colon Code(s): K55.20 - ANGIODYSPLASIA OF COLON WITHOUT HEMORRHAGE
[2017-08-07] MEDS ORDERED: PT OWN MED DRAWER 7, Y5N ONE (20:23)
[2017-08-07] MEDS ORDERED: LIDOCAINE 5% TOPICAL PATCH TP ONE (21:54)
[2017-08-07] MEDS: METOPROLOL SUCCINATE 25 MG TAB.SR.24H (FP) PO SCH (22:12)
[2017-08-07] MEDS: ATORVASTATIN CA 10 MG TABLET (FP) PO SCH (22:12)
[2017-08-07] MEDS: EZETIMIBE 10 MG TABLET (FP) PO SCH (22:12)
[2017-08-07] MEDS: PREGABALIN 50 MG CAPSULE PO SCH (22:12)
[2017-08-08] MEDS: PANTOPRAZOLE SODIUM 80 MG in SODIUM CHLORIDE 100 ML IVPB SCH ×4 (03:09→23:00)
[2017-08-08] MEDS: INSULIN SLIDING SCALE (NOVOLOG) 1 VIAL SQ SCH ×4 (06:06→21:37)
[2017-08-08 08:11] LABS: SERUM IRON 20 ug/dL (27-139); TOTAL IRON BINDING CAPACITY 357 ug/dL (250-450); UIBC 337 ug/dL (118-369)
[2017-08-08 09:17] LABS: MCH 33.1 pg (25.7-33.7); MEAN CELL VOLUME 100.1 fl (80-96); MEAN PLT VOLUME 7.2 fl (7.5-11.1); PLATELET COUNT 50 K/MM3 (134-434); RDW 18.6 % (11.6-15.6); WHITE BLOOD COUNT 2.8 K/mm3 (4.0-10.0)
[2017-08-08] MEDS ORDERED: PROPOFOL 20 ML ONE (09:42)
[2017-08-08] MEDS ORDERED: LIDOCAINE PATCH REMOVAL MC SCH ×2 (10:00→22:00)
[2017-08-08] MEDS ORDERED: PT OWN MED DRAWER 7, Y5N ONE ×2 (12:07→22:55)
[2017-08-08] MEDS: FOLIC ACID 1 MG TABLET (FP) PO SCH (12:13)
[2017-08-08] MEDS: FERROUS GLUCONATE 324 MG TAB (FP) PO SCH (12:13)
[2017-08-08] MEDS: BUDESONIDE/FORMETEROL FUMARATE 160/4.5 mcg INHALER IH SCH ×2 (12:13→21:35)
[2017-08-08] MEDS: ACLIDINIUM BROMIDE 400 MCG/INH AERO.POWD IH SCH ×2 (12:14→21:35)
[2017-08-08] MEDS: CYANOCOBALAMIN 1,000 MCG TABLET (FP) PO SCH (12:15)
[2017-08-08] MEDS: ASCORBIC ACID 500 MG TABLET (FP) PO SCH (12:15)
[2017-08-08] MEDS: CHOLECALCIFEROL (VITAMIN D3) 1,000 UNIT TABLET (FP) PO SCH (12:15)
--- NOTE | 2017-08-08 13:38 | PN ---
Teaching Attending Note Name of Resident: Seven Durbin ATTENDING PHYSICIAN STATEMENT I saw and evaluated the patient. I reviewed the resident's note and discussed the case with the resident. I agree with the resident's findings and plan as documented. SUBJECTIVE:states she feels nauseated since EGD this AM. but denies pain. reports no BM since tuesday. denies CP, SOB< fever, chills, N/V/C/D OBJECTIVE: Last Vital Signs Temp Pulse Resp BP Pulse Ox 98.4 F 82 18 132/59 100 08/08/17 10:27 08/08/17 10:59 08/08/17 10:59 08/08/17 10:59 08/08/17 10:59 refused physical exam at this time as she is nauseated ASSESSMENT AND PLAN: 76 year old female with a significant past medical history of chronic anemia, UGIB (duodenal bleed s/p epi injection, cautery and endoclipping) CAD, HTN, diastolic CHF, aortic stenosis, chronic neck and shoulder pain, COPD (on home O2 2L), cirrhosis, who presented to the ED with an acute exacerbation of her chronic shoulder pain and was found to be anemic with complaints of increased chronic dyspnea. 1. symptomatic anemia- s/p 2 units PRBC. S/p EGD this AM. as per RN report showed esophagitis/gastritis/dieulafoy lesion which was treated with epi and clipping x2. (same as In November 2016) Hgb has dropped this AM. will tranfuse 1 unit PRBC. and repeat. diet advance to clear liquid diet. txn as needed. iron studies pending. GI on board. hold asa and NSAID products 2. Constipation- resolved. stool softeners prn. 3. Chronic thrombocytopenia- lower than previous baseline. states she has had full workup with Dr Ramsey in the past and that all her workup was negative. that next step was bone marrow bx which she adamantly refuses. suggested getting different referral rn to evaluate to get 2nd opinion adn she refuses. states "whatever the workup shows I do not want chemo or surgery". will not consult hematology at this time. 4. elevated troponin-likely troponin leak in setting of acute anemia. no signs of chest pain. tropnin stable. 5. Shoulder pain- chronic pain worse this past week. now resolved. cont muscle relaxer prn 6. COPD on home O2- no signs of exacerbation. cont inhalers. supplemental o2 7. diastolic CHF- no sign of volume overload. monitor closely with blood transfusions. lasix prn. hold asa 8. DVT ppx- SCD 9. will monitor overnight and monitor that Hgb remains stable.
--- NOTE | 2017-08-08 20:19 | PN ---
Physical Exam: SUBJECTIVE: Patient seen and examined at bedside. NO acute events over night. She is NPO for EGD today . She kia any fever, chills, lightheadedness, dizziness, plapitation, sob , fatigue, N/V/D/C. OBJECTIVE: Vital Signs Period Temp Pulse Resp BP Sys/Rider Pulse Ox Last 24 Hr 97.4 F-98.4 F 66-89 16-20 106-148/57-76 93-100 GENERAL: The patient is awake, alert, and fully oriented, in no acute distress. HEAD: Normal with no signs of trauma. EYES: sclera anicteric, conjunctiva pallor.. ENT: dry mucous membranes. LUNGS: Breath sounds equal, clear to auscultation bilaterally, no wheezes, no crackles, no accessory muscle use. HEART: Regular rate and rhythm, S1, S2, 2/6 blowing murmur on RSB radiat to carotid ,no rub or gallop. ABDOMEN: Soft, nontender, nondistended, normoactive bowel sounds, no guarding, no rebound. EXTREMITIES: warm, well-perfused, no edema. NEUROLOGICAL: with good mentation SKIN: Warm, dry, no rashes or lesions noted Laboratory Results - last 24 hr 08/07/17 08/07/17 08/08/17 06:20 22:18 06:06 WBC RBC Hgb Hct MCV MCH MCHC RDW Plt Count MPV POC Glucometer 108 154 Iron 20 L TIBC 357 Iron Saturation 6 L 08/08/17 08/08/17 08/08/17 08:10 11:53 17:00 WBC 2.8 L RBC 2.26 L Hgb 7.5 L Hct 22.6 L MCV 100.1 H MCH 33.1 MCHC 33.0 RDW 18.6 H Plt Count 50 L MPV 7.2 L POC Glucometer 151 158 Iron TIBC Iron Saturation Active Medications Generic Name Dose Route Start Last Admin Trade Name Freq PRN Reason Stop Dose Admin Acetaminophen 650 mg 08/06/17 04:44 08/07/17 20:57 Tylenol - PO 650 mg Q6H PRN Administration PAIN Aclidinium Leon 1 puff 08/06/17 10:00 08/08/17 12:14 Tudorza - IH 1 puff BID KRIS Administration Ascorbic Acid 500 mg 08/06/17 10:00 08/08/17 12:15 Vitamin C - PO 500 mg DAILY KRIS Administration Atorvastatin Calcium 10 mg 08/06/17 22:00 08/07/17 22:12 Lipitor - PO 10 mg HS KRIS Administration Budesonide/Formoterol Fumarate 2 puff 08/06/17 10:00 08/08/17 12:13 Symbicort 160/4.5mcg - IH 2 puff BID KRIS Administration Cholecalciferol 1,000 unit 08/06/17 10:00 08/08/17 12:15 Vitamin D3 - PO 1,000 unit DAILY KRIS Administration Cyanocobalamin 1,000 mcg 08/06/17 10:00 08/08/17 12:15 Vitamin B12 - PO 1,000 mcg DAILY KRIS Administration Ezetimibe 10 mg 08/06/17 22:00 08/07/17 22:12 Zetia - PO 10 mg HS KRIS Administration Ferrous Gluconate 324 mg 08/06/17 10:00 08/08/17 12:13 Fergon - PO 324 mg DAILY KRIS Administration Folic Acid 1 mg 08/06/17 10:00 08/08/17 12:13 Folic Acid - PO 1 mg DAILY KRIS Administration Pantoprazole Sodium 80 mg/ 100 mls @ 10 mls/hr 08/06/17 00:45 08/08/17 13:00 Sodium Chloride IVPB Not Given Q10H KRIS 8 MG/HR Insulin Aspart 1 vial 08/06/17 07:00 08/08/17 17:01 Novolog Vial Sliding Scale - SQ Not Given ACHS [facility] Protocol Metoprolol Succinate 25 mg 08/06/17 22:00 08/07/17 22:12 Toprol Xl - PO 25 mg HS KRIS Administration Ondansetron HCl 8 mg 08/06/17 01:37 Zofran - PO Q8H PRN NAUSEA AND/OR VOMITING Pregabalin 100 mg 08/06/17 22:30 08/07/17 22:12 Lyrica - PO 100 mg HS KRIS Administration Senna 2 tab 08/06/17 04:10 Senna - PO HS PRN CONSTIPATION CBC, BMP 08/08/17 08:10 08/07/17 06:20 ASSESSMENT/PLAN: 76yo F with PMH of anemia, HTN, DCHF, ,COPD (on home O2 2L), thrombocytopenia , NIDDM,duodenal ulcer( s/p epi injection, cautery and endoclipping)chronic neck and shoulder pain, cirrhosis presents with c/o acute exacerbation of back and neck pain.She was found in Ed to have Hemoglobin of 6.3 and was admitted to med-surg for further evaluation. # sever symptomatic anemia, acute on chronic , * Likely secondary to acute blood loss from GI system ( duodenal ulcer vs AVM, VS diverticulosis vs recurrent Dieulafoy ) most likely vs anemia of chronic disease vs iron deficiency anemia * 2 large IV pore * S/P 2 units PRBCPs, started in ED, consider lasix for more transfusion. * GI consult, EGD today morning showed esophagitis/gastritis/dieulafoy lesion which was treated with epi and clipping x2 * transfuse another unit of blood with H/H 7.5/22.6 after transfusion * Protonix drip * b12 , Folate WNL from previous studies * Iron studies * check Guiack , * refuse GURJIT * Check coags now * Check orthostatic vital signs * Follow post-transfusion CBC * Avoid ASA, NSAIDS * Repeat CBC and 8 pm and transfuse PLT if less than 80 and PRBC if Hgb less than 7 * # Constipation ,resolved * Last BM * Start Miralax PRN * had BM last night #Thrombocytopenia, * PLT 72 drop to 50 * Chronic,had h/O platelets transfusion last November in setting of GI bleeding * Likely 2/2 liver cirrhosis vs malignancy * consider platelet transfusion as needed * Monitor CBC * had previous work up with but she refused any 2nd opinion , bone biopsy or any malignancy work up (I am 76 i don't want to deal with any chemo or surgery patient answer) #elevated troponin, * likely troponin leak in setting of acute anemia. * no signs of chest pain. trend trop * unlikely cardiac event. * repeat cbc # lower back pain , neck Pain , Sholder pain Acute on chronic likely 2/2 degenerative arthritis * Physical exam WNL * Pain killer , muscle relaxant * monitor clinically * Improved in ER after robaxan # DM2, * Hold home meds * ISS * BGM * * # COPD, stable * no acute exacerbation * Duoneb * 2L O2 NC at home #CHF, diastolic, * Stable, no sign of volum overloaded * Strict I/O , daily weight * evaluate fluid volum after transfusion * consider lasix if more transfusion is needed * Hold ASA * # HTN, * continue toprol 25 PO per her PCP (half of original dose 50 PO daily ) * hold other BP med valsartan, furosemide per PCP * # FEN * F: IV fluids 500 CC bolus in ED ,hold fluids due to DCHF * E monitor * N: on clear liquid diet * # Proph: * DVT : High risk , SCDs , hold pharmalogical anticoagulation due to possible GI bleed * GI: Protonix drip * # Dispo * Admit to med-surg * Visit type - Emergency Visit Emergency Visit: Yes ED Registration Date: 08/06/17 Care time: The patient presented to the Emergency Department on the above date and was hospitalized for further evaluation of their emergent condition. - New Patient This patient is new to me today: No - Critical Care Critical Care patient: No
[2017-08-08] MEDS: ATORVASTATIN CA 10 MG TABLET (FP) PO SCH (21:28)
[2017-08-08] MEDS: EZETIMIBE 10 MG TABLET (FP) PO SCH (21:28)
[2017-08-08] MEDS: PREGABALIN 50 MG CAPSULE PO SCH (21:28)
[2017-08-08] MEDS: METOPROLOL SUCCINATE 25 MG TAB.SR.24H (FP) PO SCH (21:29)
[2017-08-08 21:48] LABS: MCH 32.6 pg (25.7-33.7); MCHC 32.8 g/dl (32.0-36.0); MEAN CELL VOLUME 99.3 fl (80-96); PLATELET COUNT 58 K/MM3 (134-434); RDW 18.5 % (11.6-15.6); WHITE BLOOD COUNT 3.7 K/mm3 (4.0-10.0)
[2017-08-08] MEDS ORDERED: LIDOCAINE 5% TOPICAL PATCH TP ONE (21:48)
[2017-08-08] MEDS: LIDOCAINE 5% TOPICAL PATCH TP SCH (22:16)
[2017-08-09] MEDS: INSULIN SLIDING SCALE (NOVOLOG) 1 VIAL SQ SCH ×4 (06:25→21:32)
[2017-08-09 07:56] LABS: MCH 31.9 pg (25.7-33.7); MCHC 32.5 g/dl (32.0-36.0); MEAN CELL VOLUME 98.3 fl (80-96); PLATELET COUNT 49 K/MM3 (134-434); RDW 17.8 % (11.6-15.6); WHITE BLOOD COUNT 2.8 K/mm3 (4.0-10.0)
--- NOTE | 2017-08-09 08:20 | PN ---
Physical Exam: SUBJECTIVE: Patient seen and examined at bedside. NO acute events over night. She is NPO for EGD today . She kia any fever, chills, lightheadedness, dizziness, palpitation, sob , fatigue, N/V/C. She had multiple episode of bloody diarrhea. OBJECTIVE: Vital Signs Period Temp Pulse Resp BP Sys/Rider Pulse Ox Last 24 Hr 97.4 F-98.8 F 64-89 16-20 98-148/44-76 93-100 GENERAL: The patient is awake, alert, and fully oriented, in no acute distress. HEAD: Normal with no signs of trauma. EYES: sclera anicteric, conjunctiva pallor.. ENT: dry mucous membranes. LUNGS: Breath sounds equal, clear to auscultation bilaterally, no wheezes, no crackles, no accessory muscle use. HEART: Regular rate and rhythm, S1, S2, 2/6 blowing murmur on RSB radiat to carotid ,no rub or gallop. ABDOMEN: Soft, nontender, nondistended, normoactive bowel sounds, no guarding, no rebound. EXTREMITIES: warm, well-perfused, no edema. NEUROLOGICAL: with good mentation SKIN: Warm, dry, no rashes or lesions noted Laboratory Results - last 24 hr 08/07/17 08/08/17 08/08/17 06:20 08:10 11:53 WBC 2.8 L RBC 2.26 L Hgb 7.5 L Hct 22.6 L MCV 100.1 H MCH 33.1 MCHC 33.0 RDW 18.6 H Plt Count 50 L MPV 7.2 L POC Glucometer 151 Iron 20 L TIBC 357 Iron Saturation 6 L Tumor Marker AFP 1.9 08/08/17 08/08/17 08/08/17 17:00 21:30 21:36 WBC 3.7 L D RBC 2.67 L Hgb 8.7 L D Hct 26.5 L D MCV 99.3 H MCH 32.6 MCHC 32.8 RDW 18.5 H Plt Count 58 L MPV 7.0 L POC Glucometer 158 120 Iron TIBC Iron Saturation Tumor Marker AFP 08/09/17 08/09/17 06:24 07:30 WBC 2.8 L RBC 2.46 L Hgb 7.8 L D Hct 24.2 L MCV 98.3 H MCH 31.9 MCHC 32.5 RDW 17.8 H Plt Count 49 L MPV 7.0 L POC Glucometer 140 Iron TIBC Iron Saturation Tumor Marker AFP Active Medications Generic Name Dose Route Start Last Admin Trade Name Francisco PRN Reason Stop Dose Admin Acetaminophen 650 mg 08/06/17 04:44 08/07/17 20:57 Tylenol - PO 650 mg Q6H PRN Administration PAIN Aclidinium Edison 1 puff 08/06/17 10:00 08/08/17 21:35 Tudorza - IH 1 puff BID KRIS Administration Ascorbic Acid 500 mg 08/06/17 10:00 08/08/17 12:15 Vitamin C - PO 500 mg DAILY KRIS Administration Atorvastatin Calcium 10 mg 08/06/17 22:00 08/08/17 21:28 Lipitor - PO 10 mg HS KRIS Administration Budesonide/Formoterol Fumarate 2 puff 08/06/17 10:00 08/08/17 21:35 Symbicort 160/4.5mcg - IH 2 puff BID KRIS Administration Cholecalciferol 1,000 unit 08/06/17 10:00 08/08/17 12:15 Vitamin D3 - PO 1,000 unit DAILY KRIS Administration Cyanocobalamin 1,000 mcg 08/06/17 10:00 08/08/17 12:15 Vitamin B12 - PO 1,000 mcg DAILY KRIS Administration Ezetimibe 10 mg 08/06/17 22:00 08/08/17 21:28 Zetia - PO 10 mg HS KRIS Administration Ferrous Gluconate 324 mg 08/06/17 10:00 08/08/17 12:13 Fergon - PO 324 mg DAILY KRIS Administration Folic Acid 1 mg 08/06/17 10:00 08/08/17 12:13 Folic Acid - PO 1 mg DAILY KRIS Administration Pantoprazole Sodium 80 mg/ 100 mls @ 10 mls/hr 08/06/17 00:45 08/08/17 23:00 Sodium Chloride IVPB 10 mls/hr Q10H KRIS Administration 8 MG/HR Insulin Aspart 1 vial 08/06/17 07:00 08/09/17 06:25 Novolog Vial Sliding Scale - SQ Not Given ACHS KRIS Protocol Lidocaine 1 patch 08/08/17 22:15 08/08/17 22:16 Lidoderm Patch - TP 1 patch HS KRIS Administration Metoprolol Succinate 25 mg 08/06/17 22:00 08/08/17 21:29 Toprol Xl - PO Not Given HS KRIS Miscellaneous 1 each 08/09/17 10:00 Lidoderm Patch Removal MC DAILY KRIS Ondansetron HCl 8 mg 08/06/17 01:37 Zofran - PO Q8H PRN NAUSEA AND/OR VOMITING Pregabalin 100 mg 08/06/17 22:30 08/08/17 21:28 Lyrica - PO 100 mg HS KRIS Administration Senna 2 tab 08/06/17 04:10 Senna - PO HS PRN CONSTIPATION CBC, BMP 08/09/17 15:30 08/09/17 07:30 ASSESSMENT/PLAN: 76yo F with PMH of anemia, HTN, DCHF, ,COPD (on home O2 2L), thrombocytopenia , NIDDM,duodenal ulcer( s/p epi injection, cautery and endoclipping)chronic neck and shoulder pain, cirrhosis presents with c/o acute exacerbation of back and neck pain.She was found in Ed to have Hemoglobin of 6.3 and was admitted to med-surg for further evaluation. # sever symptomatic anemia, acute on chronic , * Likely secondary to acute blood loss from GI system ( duodenal ulcer vs AVM, VS diverticulosis vs recurrent Dieulafoy ) most likely vs anemia of chronic disease vs iron deficiency anemia * 2 large IV pore * S/P 2 units PRBCPs, started in ED, consider lasix for more transfusion. * GI consult, EGD today morning showed esophagitis/gastritis/dieulafoy lesion which was treated with epi and clipping x2 * transfuse another unit of blood with H/H 7.5/22.6 after transfusion * Protonix drip * b12 , Folate WNL from previous studies * Iron studies * check Guiack , * refuse GURJIT * Check coags now * Check orthostatic vital signs * Follow post-transfusion CBC * Avoid ASA, NSAIDS * transfuse one unit PLT and then repeat CBC * # Constipation ,resolved * Last BM * Start Miralax PRN * had BM last night #Thrombocytopenia, * PLT 72 drop to 50 * Chronic,had h/O platelets transfusion last November in setting of GI bleeding * Likely 2/2 liver cirrhosis vs malignancy * consider platelet transfusion as needed * Monitor CBC * had previous work up with but she refused any 2nd opinion , bone biopsy or any malignancy work up (I am 76 i don't want to deal with any chemo or surgery patient answer) #elevated troponin, * likely troponin leak in setting of acute anemia. * no signs of chest pain. trend trop * unlikely cardiac event. * repeat cbc # lower back pain , neck Pain , Sholder pain Acute on chronic likely 2/2 degenerative arthritis * Physical exam WNL * Pain killer Tylenol 650 mg PO Q6hr , muscle relaxant Robaxan * monitor clinically * Improved in ER after robaxan # DM2, * Hold home meds * ISS * BGM * * # COPD, stable * no acute exacerbation * Duoneb * 2L O2 NC at home #CHF, diastolic, * Stable, no sign of volum overloaded * Strict I/O , daily weight * evaluate fluid volum after transfusion * consider lasix if more transfusion is needed * Hold ASA * # HTN, * continue toprol 25 PO per her PCP (half of original dose 50 PO daily ) * hold other BP med valsartan, furosemide per PCP * # FEN * F: IV fluids 500 CC bolus in ED ,hold fluids due to DCHF * E monitor * N: on clear liquid diet * # Proph: * DVT : High risk , SCDs , hold pharmalogical anticoagulation due to possible GI bleed * GI: Protonix drip * # Dispo * Admit to med-surg * Visit type - Emergency Visit Emergency Visit: Yes ED Registration Date: 08/06/17 Care time: The patient presented to the Emergency Department on the above date and was hospitalized for further evaluation of their emergent condition. - New Patient This patient is new to me today: No - Critical Care Critical Care patient: No
[2017-08-09 08:47] LABS: CREATININE 0.8 mg/dL (0.55-1.02); GLUCOSE,RANDOM 129 mg/dL (74-106)
[2017-08-09 08:48] LABS: ANION GAP 8 (8-16); CALCIUM 7.9 mg/dL (8.5-10.1); CO2 25 mmol/L (21-32)
[2017-08-09] MEDS: PANTOPRAZOLE SODIUM 80 MG in SODIUM CHLORIDE 100 ML IVPB SCH ×2 (09:05→20:44)
--- NOTE | 2017-08-09 09:58 | PN ---
GI Progress Note Subjective: GASTROENTEROLOGY S/P EGD AND CONTROL BLEEDING LARGE BM LAST NIGHT WITH BLOOD, BROWN STOOL THIS AM WITH TRACES OF BLOOD, PLT COUNT LESS THAN 50 THIS AM, HGB 7.8, STILL NPO ON IV PROTONIX DRIP, FEELS GOOD WANTS TO GO HOME - Objective Vital Signs: Vital Signs Temperature 98 F 08/09/17 05:47 Pulse Rate 64 08/09/17 05:47 Respiratory Rate 20 08/09/17 05:47 Blood Pressure 98/52 08/09/17 05:47 O2 Sat by Pulse Oximetry (%) 96 08/08/17 21:00 Constitutional: No Distress, Calm Eyes: Yes: Conjunctiva Clear Neck: Yes: Supple Cardiovascular: Yes: Regular Rate and Rhythm Respiratory: Yes: Regular Gastrointestinal Inspection: Yes: WNL ...Auscultate: Yes: Normoactive Bowel Sounds ...Palpate: Yes: Soft, Other (NIONTENDER) Extremities: Yes: WNL Labs: CBC, BMP 08/09/17 07:30 08/09/17 07:30 INR, PTT INR 1.29 (0.82-1.09) H 08/07/17 06:20 Problem List - Problems (1) GI (gastrointestinal hemorrhage) Assessment/Plan: STILL WITH SOME BLEEDING , HGB 7.8 PLT LESS THAN 50 HEMATOLOGY CONSULT? CONSIDER TRANSFUSON OF PLT IF CONTINUED BLEEDING NPO X MEDS, NO ASA, NO NSAIDS IV PROTONIX DRIP CBC LATER TODAY IF STABLE OR IMPROVED START CLEAR LIQUID DIET BLEEDING MAY NOT BE FROM LESION IN DUODENUM CAN BE DIVERTICULAR OR AVM IN OTHER AREA OF GI TRACT NEXT LARGE BLEEDING EPISODE SUGGEST CTA Code(s): K92.2 - GASTROINTESTINAL HEMORRHAGE, UNSPECIFIED (2) Anemia due to blood loss, acute Code(s): D62 - ACUTE POSTHEMORRHAGIC ANEMIA (3) Dieulafoy lesion of duodenum Code(s): K31.82 - DIEULAFOY LESION (HEMORRHAGIC) OF STOMACH AND DUODENUM (4) Diverticulosis of colon Code(s): K57.30 - DVRTCLOS OF LG INT W/O PERFORATION OR ABSCESS W/O BLEEDING (5) Thrombocytopenia Code(s): D69.6 - THROMBOCYTOPENIA, UNSPECIFIED
[2017-08-09 10:04] LABS: EOSINOPHIL 4.8 % (0-4.5); MCH 32.5 pg (25.7-33.7); MCHC 32.9 g/dl (32.0-36.0); MEAN CELL VOLUME 98.8 fl (80-96); MEAN PLT VOLUME 7.4 fl (7.5-11.1); NEUTROPHILS 57.8 % (42.8-82.8); PLATELET COUNT 51 K/MM3 (134-434); RDW 17.7 % (11.6-15.6); WHITE BLOOD COUNT 2.8 K/mm3 (4.0-10.0)
[2017-08-09] MEDS ORDERED: PT OWN MED DRAWER 7, Y5N ONE ×2 (10:19→21:18)
[2017-08-09] MEDS: FOLIC ACID 1 MG TABLET (FP) PO SCH (10:21)
[2017-08-09] MEDS: CHOLECALCIFEROL (VITAMIN D3) 1,000 UNIT TABLET (FP) PO SCH (10:21)
[2017-08-09] MEDS: ASCORBIC ACID 500 MG TABLET (FP) PO SCH (10:21)
[2017-08-09] MEDS: BUDESONIDE/FORMETEROL FUMARATE 160/4.5 mcg INHALER IH SCH ×2 (10:21→21:32)
[2017-08-09] MEDS: CYANOCOBALAMIN 1,000 MCG TABLET (FP) PO SCH (10:21)
[2017-08-09] MEDS: FERROUS GLUCONATE 324 MG TAB (FP) PO SCH (10:21)
[2017-08-09] MEDS: LIDOCAINE PATCH REMOVAL MC SCH (10:22)
[2017-08-09] MEDS: ACLIDINIUM BROMIDE 400 MCG/INH AERO.POWD IH SCH ×2 (10:22→21:32)
[2017-08-09 16:40] LABS: MCH 32.5 pg (25.7-33.7); MCHC 33.1 g/dl (32.0-36.0); MEAN PLT VOLUME 6.8 fl (7.5-11.1); PLATELET COUNT 67 K/MM3 (134-434); WHITE BLOOD COUNT 3.1 K/mm3 (4.0-10.0)
--- NOTE | 2017-08-09 18:12 | PN ---
Teaching Attending Note Name of Resident: Seven Durbin ATTENDING PHYSICIAN STATEMENT I saw and evaluated the patient. I reviewed the resident's note and discussed the case with the resident. I agree with the resident's findings and plan as documented. SUBJECTIVE: Patient reports having rectal bleeding last night and this morning. OBJECTIVE: Vital Signs Period Temp Pulse Resp BP Sys/Rider Pulse Ox Last 24 Hr 97.9 F-98.8 F 64-93 20-20 98-148/44-72 96-96 HEART: S1S2, RRR LUNGS: Clear ABDOMEN: Soft, non-tender, non-distended, normal BS EXTREMITIES: No edema Current Medications Generic Name Dose Route Start Last Admin Trade Name Freq PRN Reason Stop Dose Admin Acetaminophen 650 mg 08/06/17 04:44 08/07/17 20:57 Tylenol - PO 650 mg Q6H PRN Administration PAIN Aclidinium Chamberlain 1 puff 08/06/17 10:00 08/09/17 10:22 Tudorza - IH 1 puff BID KRIS Administration Ascorbic Acid 500 mg 08/06/17 10:00 08/09/17 10:21 Vitamin C - PO 500 mg DAILY KRIS Administration Atorvastatin Calcium 10 mg 08/06/17 22:00 08/08/17 21:28 Lipitor - PO 10 mg HS KRIS Administration Budesonide/Formoterol Fumarate 2 puff 08/06/17 10:00 08/09/17 10:21 Symbicort 160/4.5mcg - IH 2 puff BID KRIS Administration Cholecalciferol 1,000 unit 08/06/17 10:00 08/09/17 10:21 Vitamin D3 - PO 1,000 unit DAILY KRIS Administration Cyanocobalamin 1,000 mcg 08/06/17 10:00 08/09/17 10:21 Vitamin B12 - PO 1,000 mcg DAILY KRIS Administration Ezetimibe 10 mg 08/06/17 22:00 08/08/17 21:28 Zetia - PO 10 mg HS KRIS Administration Ferrous Gluconate 324 mg 08/06/17 10:00 08/09/17 10:21 Fergon - PO 324 mg DAILY KRIS Administration Folic Acid 1 mg 08/06/17 10:00 08/09/17 10:21 Folic Acid - PO 1 mg DAILY KRIS Administration Pantoprazole Sodium 80 mg/ 100 mls @ 10 mls/hr 08/06/17 00:45 08/09/17 09:05 Sodium Chloride IVPB 10 mls/hr Q10H KRIS Administration 8 MG/HR Insulin Aspart 1 vial 08/06/17 07:00 08/09/17 17:34 Novolog Vial Sliding Scale - SQ Not Given ACHS KRIS Protocol Lidocaine 1 patch 08/08/17 22:15 08/08/17 22:16 Lidoderm Patch - TP 1 patch HS KRIS Administration Metoprolol Succinate 25 mg 08/06/17 22:00 08/08/17 21:29 Toprol Xl - PO Not Given HS KRIS Miscellaneous 1 each 08/09/17 10:00 08/09/17 10:22 Lidoderm Patch Removal MC 1 each DAILY KRIS Administration Ondansetron HCl 8 mg 08/06/17 01:37 Zofran - PO Q8H PRN NAUSEA AND/OR VOMITING Pregabalin 100 mg 08/06/17 22:30 08/08/17 21:28 Lyrica - PO 100 mg HS KRIS Administration Senna 2 tab 08/06/17 04:10 Senna - PO HS PRN CONSTIPATION ASSESSMENT AND PLAN: This is a 76 year old woman with a history of anemia, duodenal upper GI bleed, CAD, HTN, diastolic HF, aortic stenosis, type 2 DM, chronic neck and shoulder pain, oxygen dependent COPD, cirrhosis who presented to the ED with shoulder pain and was found to be anemic. 1. Symptomatic anemia - Transfused 2 units PRBCs - EGD 08/08 showed distal esophagitis, antral gastritis, Dieulafoy lesion which was injected with epinephrine and clipped - No aspirin, NSAIDs - Continue iron, folate, B12 supplementation - Continue to monitor hemoglobin 2. Chronic thrombocytopenia - Transfuse 1 unit platelets as platelet count continues to decrease and patient is noting rectal bleeding - Refuses bone marrow biopsy as she does not want any treatment 3. Chronic hypoxic respiratory failure secondary to COPD - Stable - Continue oxygen, Symbicort, Tudorza 4. Chronic diastolic heart failure - Stable 5. CAD - Continue Toprol XL, Lipitor, Zetia - No aspirin secondary to GI bleeding 6. Esophagitis/gastritis - Continue Protonix 7. HTN - Continue Toprol XL 8. Type 2 DM - Continue Novolog sliding scale
[2017-08-09] MEDS ORDERED: INSULIN (NOVOLOG) ASPART 100 UNITS/ML 10ML VIAL ONE (21:17)
[2017-08-09] MEDS: PREGABALIN 50 MG CAPSULE PO SCH (21:25)
[2017-08-09] MEDS: EZETIMIBE 10 MG TABLET (FP) PO SCH (21:26)
[2017-08-09] MEDS: ATORVASTATIN CA 10 MG TABLET (FP) PO SCH (21:26)
[2017-08-09] MEDS: ACETAMINOPHEN 325 MG TABLET (FP) PO PRN (21:28)
[2017-08-09] MEDS: LIDOCAINE 5% TOPICAL PATCH TP SCH (21:28)
[2017-08-09] MEDS: METOPROLOL SUCCINATE 25 MG TAB.SR.24H (FP) PO SCH (21:32)
[2017-08-10] MEDS: INSULIN SLIDING SCALE (NOVOLOG) 1 VIAL SQ SCH ×4 (06:11→22:09)
[2017-08-10] MEDS: PANTOPRAZOLE SODIUM 80 MG in SODIUM CHLORIDE 100 ML IVPB SCH ×3 (06:11→15:17)
[2017-08-10 07:43] LABS: MCH 32.4 pg (25.7-33.7); MCHC 32.9 g/dl (32.0-36.0); MEAN CELL VOLUME 98.6 fl (80-96); MEAN PLT VOLUME 7.1 fl (7.5-11.1); PLATELET COUNT 62 K/MM3 (134-434); RDW 17.8 % (11.6-15.6); WHITE BLOOD COUNT 2.5 K/mm3 (4.0-10.0)
[2017-08-10 08:07] LABS: ALPHA 2 MACROGLOBULINS,QN 172 mg/dL (110-276); BILIRUBIN TOTAL 0.3 mg/dL (0.0-1.2); FIBROSIS STAGE F1-F2 (.); GGT= 17 IU/L (0-60); GLUCOSE SERUM 143 mg/dL (65-99); HAPTOGLOBIN= 74 mg/dL (34-200); HEIGHT 67 Inches (.); TRIGLYCERIDES= 164 mg/dL (0-149)
[2017-08-10] MEDS: ASCORBIC ACID 500 MG TABLET (FP) PO SCH (09:35)
[2017-08-10] MEDS: FOLIC ACID 1 MG TABLET (FP) PO SCH (09:35)
[2017-08-10] MEDS: CHOLECALCIFEROL (VITAMIN D3) 1,000 UNIT TABLET (FP) PO SCH (09:35)
[2017-08-10] MEDS: CYANOCOBALAMIN 1,000 MCG TABLET (FP) PO SCH (09:36)
[2017-08-10] MEDS: BUDESONIDE/FORMETEROL FUMARATE 160/4.5 mcg INHALER IH SCH ×2 (09:36→22:05)
[2017-08-10] MEDS: ACLIDINIUM BROMIDE 400 MCG/INH AERO.POWD IH SCH ×2 (09:36→22:05)
[2017-08-10] MEDS: FERROUS GLUCONATE 324 MG TAB (FP) PO SCH (09:36)
[2017-08-10] MEDS: LIDOCAINE PATCH REMOVAL MC SCH (09:37)
--- NOTE | 2017-08-10 10:33 | PN ---
Physical Exam: SUBJECTIVE: Patient seen and examined at bedside. NO acute events over night. She is still on clear liquid . She kia any fever, chills, lightheadedness, dizziness, palpitation, sob , fatigue, N/V/C. She had multiple episode of bloody diarrhea. OBJECTIVE: Vital Signs Period Temp Pulse Resp BP Sys/Rider Pulse Ox Last 24 Hr 97.9 F-97.9 F 79-93 20-20 94-127/49-57 97 GENERAL: The patient is awake, alert, and fully oriented, in no acute distress. HEAD: Normal with no signs of trauma. EYES: sclera anicteric, conjunctiva pallor.. ENT: dry mucous membranes. LUNGS: Breath sounds equal, clear to auscultation bilaterally, no wheezes, no crackles, no accessory muscle use. HEART: Regular rate and rhythm, S1, S2, 2/6 blowing murmur on RSB radiated to carotid ,no rub or gallop. ABDOMEN: Soft, nontender, nondistended, normoactive bowel sounds, no guarding, no rebound. EXTREMITIES: warm, well-perfused, no edema. NEUROLOGICAL: with good mentation SKIN: Warm, dry, no rashes or lesions noted Laboratory Results - last 24 hr 08/07/17 08/09/17 08/09/17 06:20 11:36 15:30 WBC 3.1 L RBC 2.55 L Hgb 8.3 L Hct 25.0 L MCV 98.0 H MCH 32.5 MCHC 33.1 RDW 18.0 H Plt Count 67 L D MPV 6.8 L Haptoglobin 74 Glucose 143 H POC Glucometer 124 Iron 20 L TIBC 357 Iron Saturation 6 L Total Bilirubin 0.3 GGT 17 AST 22 ALT 13 Liver Fibrosis Score 0.31 H Liver Fibrosis Stage F1-f2 Lcucb-8-[id number] 172 Triglycerides 164 H Cholesterol 104 Apolipoprotein A-1 97 L Tumor Marker AFP 1.9 Patient Height (cm) 67 Patient Weight (kg) 200 CSF IgG Interpretation 08/09/17 08/09/17 08/10/17 16:53 21:22 06:00 WBC 2.5 L RBC 2.34 L Hgb 7.6 L Hct 23.1 L MCV 98.6 H MCH 32.4 MCHC 32.9 RDW 17.8 H Plt Count 62 L MPV 7.1 L Haptoglobin Glucose POC Glucometer 116 121 Iron TIBC Iron Saturation Total Bilirubin GGT AST ALT Liver Fibrosis Score Liver Fibrosis Stage Qfzbg-5-[id number] Triglycerides Cholesterol Apolipoprotein A-1 Tumor Marker AFP Patient Height (cm) Patient Weight (kg) CSF IgG Interpretation 08/10/17 06:04 WBC RBC Hgb Hct MCV MCH MCHC RDW Plt Count MPV Haptoglobin Glucose POC Glucometer 145 Iron TIBC Iron Saturation Total Bilirubin GGT AST ALT Liver Fibrosis Score Liver Fibrosis Stage Nbhgh-6-Xwympcfmtjfob Triglycerides Cholesterol Apolipoprotein A-1 Tumor Marker AFP Patient Height (cm) Patient Weight (kg) CSF IgG Interpretation Active Medications Generic Name Dose Route Start Last Admin Trade Name Freq PRN Reason Stop Dose Admin Acetaminophen 650 mg 08/06/17 04:44 08/09/17 21:28 Tylenol - PO 650 mg Q6H PRN Administration PAIN Aclidinium [place] 1 puff 08/06/17 10:00 08/10/17 09:36 Tudorza - IH 1 puff BID KRIS Administration Ascorbic Acid 500 mg 08/06/17 10:00 08/10/17 09:35 Vitamin C - PO 500 mg DAILY KRIS Administration Atorvastatin Calcium 10 mg 08/06/17 22:00 08/09/17 21:26 Lipitor - PO 10 mg HS KRIS Administration Budesonide/Formoterol Fumarate 2 puff 08/06/17 10:00 08/10/17 09:36 Symbicort 160/4.5mcg - IH 2 puff BID KRIS Administration Cholecalciferol 1,000 unit 08/06/17 10:00 08/10/17 09:35 Vitamin D3 - PO 1,000 unit DAILY KRIS Administration Cyanocobalamin 1,000 mcg 08/06/17 10:00 08/10/17 09:36 Vitamin B12 - PO 1,000 mcg DAILY KRIS Administration Ezetimibe 10 mg 08/06/17 22:00 08/09/17 21:26 Zetia - PO 10 mg HS KRIS Administration Ferrous Gluconate 324 mg 08/06/17 10:00 08/10/17 09:36 Fergon - PO 324 mg DAILY KRIS Administration Folic Acid 1 mg 08/06/17 10:00 08/10/17 09:35 Folic Acid - PO 1 mg DAILY KRIS Administration Pantoprazole Sodium 80 mg/ 100 mls @ 10 mls/hr 08/06/17 00:45 08/10/17 09:35 Sodium Chloride IVPB 10 mls/hr Q10H KRIS Administration 8 MG/HR Insulin Aspart 1 vial 08/06/17 07:00 08/10/17 06:11 Novolog Vial Sliding Scale - SQ Not Given ACHS KRIS Protocol Lidocaine 1 patch 08/08/17 22:15 08/09/17 21:28 Lidoderm Patch - TP 1 patch HS KRIS Administration Metoprolol Succinate 25 mg 08/06/17 22:00 08/09/17 21:32 Toprol Xl - PO Not Given HS KRIS Miscellaneous 1 each 08/09/17 10:00 08/10/17 09:37 Lidoderm Patch Removal MC 1 each DAILY KRIS Administration Ondansetron HCl 8 mg 08/06/17 01:37 Zofran - PO Q8H PRN NAUSEA AND/OR VOMITING Pregabalin 100 mg 08/06/17 22:30 08/09/17 21:25 Lyrica - PO 100 mg HS KRIS Administration Senna 2 tab 08/06/17 04:10 Senna - PO HS PRN CONSTIPATION CBC, BMP 08/10/17 06:00 08/09/17 07:30 ASSESSMENT/PLAN: 76yo F with PMH of anemia, HTN, DCHF, ,COPD (on home O2 2L), thrombocytopenia , NIDDM,duodenal ulcer( s/p epi injection, cautery and endoclipping)chronic neck and shoulder pain, cirrhosis presents with c/o acute exacerbation of back and neck pain.She was found in Ed to have Hemoglobin of 6.3 and was admitted to med-surg for further evaluation. # sever symptomatic anemia, acute on chronic , * Likely secondary to acute blood loss from GI system ( duodenal ulcer vs AVM, VS diverticulosis vs recurrent Dieulafoy ) most likely vs anemia of chronic disease vs iron deficiency anemia * 2 large IV pore * S/P PRBCPs, ,total of 2 units in ED consider lasix for more transfusion. * GI consult, EGD today morning showed esophagitis/gastritis/dieulafoy lesion which was treated with epi and clipping x2 * transfuse another unit of blood with H/H 7.5/22.6 after transfusion * Protonix 40 mg BID for 2 weeks , then once a day * b12 , Folate, WNL from previous studies * Iron studies * [place] + * refuse GURJIT * Check coags now * Check orthostatic vital signs * Follow post-transfusion CBC * Avoid ASA, NSAIDS * one unit PLT transfused, consider to transfuse other if continue to bleed * consider CTA if continue to bleed * Advance to soft high fiber diet per GI * # Constipation ,resolved * multiple bloody BM * continue Miralax PRN * #Thrombocytopenia, * PLT 72 drop to 50 * Chronic,had h/O platelets transfusion last November in setting of GI bleeding * Likely 2/2 liver cirrhosis vs malignancy * consider platelet transfusion as needed * Monitor CBC * had previous work up with but she refused any 2nd opinion , bone biopsy or any malignancy work up (I am 76 i don't want to deal with any chemo or surgery patient answer) #elevated troponin, * likely troponin leak in setting of acute anemia. * no signs of chest pain. trend trop * unlikely cardiac event. * repeat cbc # lower back pain , neck Pain , Sholder pain Acute on chronic likely 2/2 degenerative arthritis * Physical exam WNL * Pain killer Tylenol 650 mg PO Q6hr , muscle relaxant Robaxan * monitor clinically * Improved in ER after robaxan # DM2, * Hold home meds * ISS * BGM * * # COPD, stable * no acute exacerbation * Duoneb * 2L O2 NC at home #CHF, diastolic, * Stable, no sign of volum overloaded * Strict I/O , daily weight * evaluate fluid volum after transfusion * consider lasix if more transfusion is needed * Hold ASA * # HTN, * continue toprol 25 PO per her PCP (half of original dose 50 PO daily ) * hold other BP med valsartan, furosemide per PCP * # FEN * F: IV fluids 500 CC bolus in ED ,hold fluids due to DCHF * E monitor * N: on clear liquid diet * # Proph: * DVT : High risk , SCDs , hold pharmalogical anticoagulation due to possible GI bleed * GI: Protonix drip * # Dispo * Admit to med-surg * Visit type - Emergency Visit Emergency Visit: Yes ED Registration Date: 08/06/17 Care time: The patient presented to the Emergency Department on the above date and was hospitalized for further evaluation of their emergent condition. - New Patient This patient is new to me today: No - Critical Care Critical Care patient: No - Discharge Referral Referred to [facility] Med [facility] No
[2017-08-10 11:31] LABS: MCH 32.3 pg (25.7-33.7); MCHC 32.6 g/dl (32.0-36.0); MEAN CELL VOLUME 99.2 fl (80-96); MEAN PLT VOLUME 6.9 fl (7.5-11.1); PLATELET COUNT 77 K/MM3 (134-434); RDW 17.4 % (11.6-15.6); WHITE BLOOD COUNT 3.8 K/mm3 (4.0-10.0)
--- NOTE | 2017-08-10 13:23 | PN ---
Progress Note (short form) - Note Progress Note: PULMONARY PATIENT KNOWN TO OUR SERVICE FORMED STOOL WITH SOME BLOOD VSS ANICTERIC DISTANT BUT CLEAR BREATH SOUNDS S1S2 BS+ SOFT NO EDEMA LABS/MEDS/NOTES/PROCEDURES REVIEWED UGI BLEEDING WITH H/O THROMBOCYTOPENIA/HYPERSPLENISM MULTIPLE CO-MORBID CONDITIONS LISTED IN H/P HGB STEADY/PLTS ARE RISING WOULD CONTINUE TO MONITOR PARAMETERS PATIENT WANTS TO GO HOME (NOT ADVISABLE AT THE MOMENT) Sami LEE MD
--- NOTE | 2017-08-10 14:47 | PN ---
GI Progress Note Subjective: GASTROENTEROLOGY MINIMAL BLEEDING (PROBABLY RESIDUAL) BROWN STOOL CBC AND PLT IMPROVED PLT TRANSFUSION YESTERDAY STILL ON LIQUID DIET - Objective Vital Signs: Vital Signs Temperature 97.9 F 08/10/17 14:27 Pulse Rate 99 H 08/10/17 14:27 Respiratory Rate 18 08/10/17 14:27 Blood Pressure 105/51 08/10/17 14:27 O2 Sat by Pulse Oximetry (%) 96 08/10/17 09:00 Constitutional: No Distress Eyes: Yes: Conjunctiva Clear HENT: Yes: Normocephalic Neck: Yes: Supple Cardiovascular: Yes: Regular Rate and Rhythm Respiratory: Yes: Regular Gastrointestinal Inspection: Yes: WNL ...Auscultate: Yes: Normoactive Bowel Sounds ...Palpate: Yes: Soft Extremities: Yes: WNL Labs: CBC, BMP 08/10/17 11:17 08/09/17 07:30 INR, PTT INR 1.29 (0.82-1.09) H 08/07/17 06:20 Problem List - Problems (1) GI (gastrointestinal hemorrhage) Assessment/Plan: STILL WITH SOME BLEEDING , HGB 7.8 PLT LESS THAN 50 HEMATOLOGY CONSULT? CONSIDER TRANSFUSON OF PLT IF CONTINUED BLEEDING ABSOLUTLEY NO ASA, NO NSAIDS PROTONIX 40 MG PO BID FOR 2 WEEKS THEN ONCE A DAY SOFT DIET HIGH FIBER BLEEDING MAY NOT BE FROM LESION IN DUODENUM CAN BE DIVERTICULAR OR AVM IN OTHER AREA OF GI TRACT NEXT LARGE BLEEDING EPISODE SUGGEST CTA Code(s): K92.2 - GASTROINTESTINAL HEMORRHAGE, UNSPECIFIED (2) Anemia due to blood loss, acute Code(s): D62 - ACUTE POSTHEMORRHAGIC ANEMIA (3) Dieulafoy lesion of duodenum Code(s): K31.82 - DIEULAFOY LESION (HEMORRHAGIC) OF STOMACH AND DUODENUM (4) Diverticulosis of colon Code(s): K57.30 - DVRTCLOS OF LG INT W/O PERFORATION OR ABSCESS W/O BLEEDING (5) Thrombocytopenia Code(s): D69.6 - THROMBOCYTOPENIA, UNSPECIFIED
--- NOTE | 2017-08-10 17:44 | PN ---
Teaching Attending Note Name of Resident: Seven Durbin ATTENDING PHYSICIAN STATEMENT I saw and evaluated the patient. I reviewed the resident's note and discussed the case with the resident. I agree with the resident's findings and plan as documented. SUBJECTIVE: Patient continues to report having bloody bowel movements. OBJECTIVE: Vital Signs Period Temp Pulse Resp BP Sys/Rider Pulse Ox Last 24 Hr 97.9 F-98.0 F 79-99 18-20 94-121/49-66 96-97 HEART: S1S2, RRR LUNGS: Clear ABDOMEN: Soft, non-tender, non-distended, normal BS EXTREMITIES: No edema Current Medications Generic Name Dose Route Start Last Admin Trade Name Freq PRN Reason Stop Dose Admin Acetaminophen 650 mg 08/06/17 04:44 08/09/17 21:28 Tylenol - PO 650 mg Q6H PRN Administration PAIN Aclidinium [place] 1 puff 08/06/17 10:00 08/10/17 09:36 Tudorza - IH 1 puff BID KRIS Administration Ascorbic Acid 500 mg 08/06/17 10:00 08/10/17 09:35 Vitamin C - PO 500 mg DAILY KRIS Administration Atorvastatin Calcium 10 mg 08/06/17 22:00 08/09/17 21:26 Lipitor - PO 10 mg HS KRIS Administration Budesonide/Formoterol Fumarate 2 puff 08/06/17 10:00 08/10/17 09:36 Symbicort 160/4.5mcg - IH 2 puff BID KRIS Administration Cholecalciferol 1,000 unit 08/06/17 10:00 08/10/17 09:35 Vitamin D3 - PO 1,000 unit DAILY KRIS Administration Cyanocobalamin 1,000 mcg 08/06/17 10:00 08/10/17 09:36 Vitamin B12 - PO 1,000 mcg DAILY KRIS Administration Docusate Sodium 300 mg 08/10/17 22:00 Colace - PO HS KRIS Ezetimibe 10 mg 08/06/17 22:00 08/09/17 21:26 Zetia - PO 10 mg HS KRIS Administration Ferrous Gluconate 324 mg 08/06/17 10:00 08/10/17 09:36 Fergon - PO 324 mg DAILY KRIS Administration Folic Acid 1 mg 08/06/17 10:00 08/10/17 09:35 Folic Acid - PO 1 mg DAILY KRIS Administration Insulin Aspart 1 vial 08/06/17 07:00 08/10/17 17:37 Novolog Vial Sliding Scale - SQ Not Given ACHS [facility] Protocol Lidocaine 1 patch 08/08/17 22:15 08/09/17 21:28 Lidoderm Patch - TP 1 patch HS KRIS Administration Metoprolol Succinate 25 mg 08/06/17 22:00 08/09/17 21:32 Toprol Xl - PO Not Given HS KRIS Miscellaneous 1 each 08/09/17 10:00 08/10/17 09:37 Lidoderm Patch Removal MC 1 each DAILY KRIS Administration Ondansetron HCl 8 mg 08/06/17 01:37 Zofran - PO Q8H PRN NAUSEA AND/OR VOMITING Pantoprazole Sodium 40 mg 08/10/17 22:00 Protonix - PO BID KRIS Pregabalin 100 mg 08/06/17 22:30 08/09/17 21:25 Lyrica - PO 100 mg HS KRIS Administration ASSESSMENT AND PLAN: This is a 76 year old woman with a history of anemia, duodenal upper GI bleed, CAD, HTN, diastolic HF, aortic stenosis, type 2 DM, chronic neck and shoulder pain, oxygen dependent COPD, cirrhosis who presented to the ED with shoulder pain and was found to be anemic. 1. Symptomatic anemia - Transfused 2 units PRBCs - EGD 08/08 showed distal esophagitis, antral gastritis, Dieulafoy lesion which was injected with epinephrine and clipped - No aspirin, NSAIDs - Continue iron, folate, B12 supplementation - Continue to monitor hemoglobin 2. Chronic thrombocytopenia - Transfused 1 unit platelets - Refuses bone marrow biopsy as she does not want any treatment 3. Chronic hypoxic respiratory failure secondary to COPD - Stable - Continue oxygen, Symbicort, Tudorza 4. Chronic diastolic heart failure - Stable 5. CAD - Continue Toprol XL, Lipitor, Zetia - No aspirin secondary to GI bleeding 6. Esophagitis/gastritis - Continue Protonix - No aspirin, NSAIDs 7. HTN - Continue Toprol XL 8. Type 2 DM - Continue Novolog sliding scale 9. Hyperlipidemia - Continue Lipitor, Zetia
[2017-08-10] MEDS: DOCUSATE SODIUM 100 MG CAPSULE (FP) PO SCH (21:51)
[2017-08-10] MEDS: ACETAMINOPHEN 325 MG TABLET (FP) PO PRN (22:06)
[2017-08-10] MEDS: LIDOCAINE 5% TOPICAL PATCH TP SCH (22:07)
[2017-08-10] MEDS: PREGABALIN 50 MG CAPSULE PO SCH (22:09)
[2017-08-10] MEDS: ATORVASTATIN CA 10 MG TABLET (FP) PO SCH (22:09)
[2017-08-10] MEDS: EZETIMIBE 10 MG TABLET (FP) PO SCH (22:09)
[2017-08-10] MEDS: PANTOPRAZOLE 40 MG TABLET (FP) PO SCH (22:09)
[2017-08-10] MEDS: METOPROLOL SUCCINATE 25 MG TAB.SR.24H (FP) PO SCH (22:09)
[2017-08-11] MEDS: INSULIN SLIDING SCALE (NOVOLOG) 1 VIAL SQ SCH ×4 (06:21→23:03)
[2017-08-11 07:23] LABS: MCH 32.4 pg (25.7-33.7); MCHC 32.5 g/dl (32.0-36.0); MEAN CELL VOLUME 99.7 fl (80-96); MEAN PLT VOLUME 7.7 fl (7.5-11.1); PLATELET COUNT 63 K/MM3 (134-434); WHITE BLOOD COUNT 3.2 K/mm3 (4.0-10.0)
[2017-08-11] MEDS ORDERED: PT OWN MED DRAWER 7, Y5N ONE (09:07)
[2017-08-11] MEDS: PANTOPRAZOLE 40 MG TABLET (FP) PO SCH ×2 (09:15→22:56)
[2017-08-11] MEDS: CHOLECALCIFEROL (VITAMIN D3) 1,000 UNIT TABLET (FP) PO SCH (09:15)
[2017-08-11] MEDS: FOLIC ACID 1 MG TABLET (FP) PO SCH (09:16)
[2017-08-11] MEDS: CYANOCOBALAMIN 1,000 MCG TABLET (FP) PO SCH (09:16)
[2017-08-11] MEDS: FERROUS GLUCONATE 324 MG TAB (FP) PO SCH (09:16)
[2017-08-11] MEDS: LIDOCAINE PATCH REMOVAL MC SCH (09:16)
[2017-08-11] MEDS: ASCORBIC ACID 500 MG TABLET (FP) PO SCH (09:16)
[2017-08-11] MEDS: BUDESONIDE/FORMETEROL FUMARATE 160/4.5 mcg INHALER IH SCH ×2 (09:17→22:56)
[2017-08-11] MEDS: ACLIDINIUM BROMIDE 400 MCG/INH AERO.POWD IH SCH ×2 (09:17→23:02)
[2017-08-11] MEDS ORDERED: INSULIN (NOVOLOG) ASPART 100 UNITS/ML 10ML VIAL ONE (12:03)
--- NOTE | 2017-08-11 14:51 | PN ---
Progress Note (short form) - Note Progress Note: Patient seen and examined 76yo F with PMH of anemia, COPD, thrombocytopenia, niddm, presents c/o continued back and neck pain. Pt took Acetaminophen/Codeine and NSAIDS and comes in with nausea/vomiting and bleeding per rectum Patient with pancytopenia , chronic, presumed cirrhosis - Past Medical History Allergies/Adverse Reactions: Allergies Allergy/AdvReac Type Severity Reaction Status Date / Time No Known Drug Allergies Allergy Verified 08/05/17 18:39 Home Medications: Ambulatory Order Ezetimibe/Simvastatin [Vytorin 10-20 mg Tablet] 1 each PO HS 05/03/12 Ferrous Gluconate 325 mg PO DAILY 05/03/12 Glyburide 2.5 mg PO BID 05/03/12 Metoprolol Succinate [Toprol XL -] 50 mg PO HS 05/03/12 Pregabalin [Lyrica] 100 mg PO HS 05/03/12 Budesonide/Formeterol Fumarate [SYMBICORT 160/4.5mcg -] 2 inh PO DAILY 12/31/13 Metformin HCl [Glucophage -] 500 mg PO DAILY 12/31/13 Tiotropium [place] [Spiriva] 1 inh PO DAILY #1 01/02/14 Cholecalciferol (Vitamin D3) [Vitamin D3] 1,000 unit PO DAILY 06/18/14 Cyanocobalamin [Vitamin B12 -] 1,000 mcg PO DAILY 06/18/14 Ascorbate Calcium [Vitamin C] 500 mg PO DAILY 01/13/17 Aspirin Coated [Ecotrin -] 81 mg PO DAILY tablet.ec 01/18/17 Losartan Potassium [Cozaar -] 50 mg PO DAILY tablet 01/18/17 Acetaminophen [Tylenol] 650 mg PO PRN PRN 08/01/17 Folic Acid 1 mg PO DAILY 08/01/17 Furosemide [Lasix] 20 mg PO DAILY 08/01/17 Pantoprazole Sodium 40 mg PO DAILY 08/01/17 Past medical History Anemia: Yes COPD: Yes Diabetes: Yes (NIDDM) GI Disorders: Yes (diverticulosis,constipation) HTN: Yes Hypercholesterolemia: Yes Other medical history: shingles, thrombocytopenia - Surgical History Abdominal Surgery: Yes (repair umbilical hernia) Appendectomy: Yes Cholecystectomy: Yes Orthopedic Surgery: Yes (ORIF, RIGHT ANKLE) - Suicide/Smoking/Psychosocial Hx Smoking History: Former smoker - Vital Signs AFVSS Cor: RSR, No murmurs, No gallops Lungs: Clear to P&A Abd: Soft, Normal bowel sounds, No organomegaly Ext:No significant edema Skin: No rashes, Integument intact A/P 76 y/o patient with cirrhosis/splenomegaly on CT scan, h/o colonic AVMS, duodenal dileaufoy,HTN, CAD, ,CHF, COPD, pancytopenia comes in with upper GI bleed Transfuse PRBCs/platelets Transfuse cryoprecipitate/FFP as needed Monitor CBC/PT/PTT/fibrinogen Pancytopenia: suspect cirrhosis/splenomegaly given coexisting coagulopathy previously flow showed no e/o B/T cell lymphoproliferative disorder. increase TLGLs/NK cells. Nl FISH for MDS. JAK2/bcr;abl were negative will follow
--- NOTE | 2017-08-11 14:51 | PN ---
Progress Note (short form) - Note Progress Note: PULMONARY Had dark maroon bowel movement overnight. No shortness of breath or chest pain. Denies abdominal pain, nausea or vomiting. Last Vital Signs Temp Pulse Resp BP Pulse Ox 97.9 F 82 18 120/48 95 08/11/17 14:31 08/11/17 14:31 08/11/17 14:31 08/11/17 14:31 08/11/17 09:00 Gen: NAD at rest Heart: RRR, +systolic murmur Lung: decreased breath sounds at the bases Abd: soft, nontender Ext: no edema CBC, BMP 08/11/17 06:00 08/09/17 07:30 Active Medications Acetaminophen (Tylenol -) 650 mg PO Q6H PRN PRN Reason: PAIN Last Admin: 08/10/17 22:06 Dose: 650 mg Aclidinium [place] (Tudorza -) 1 puff IH BID [facility] Last Admin: 08/11/17 09:17 Dose: 1 puff Ascorbic Acid (Vitamin C -) 500 mg PO DAILY [facility] Last Admin: 08/11/17 09:16 Dose: 500 mg Atorvastatin Calcium (Lipitor -) 10 mg PO HS [facility] Last Admin: 08/10/17 22:09 Dose: 10 mg Budesonide/Formoterol Fumarate (Symbicort 160/4.5mcg -) 2 puff IH BID [facility] Last Admin: 08/11/17 09:17 Dose: 2 puff Cholecalciferol (Vitamin D3 -) 1,000 unit PO DAILY [facility] Last Admin: 08/11/17 09:15 Dose: 1,000 unit Cyanocobalamin (Vitamin B12 -) 1,000 mcg PO DAILY [facility] Last Admin: 08/11/17 09:16 Dose: 1,000 mcg Docusate Sodium (Colace -) 300 mg PO HS [facility] Last Admin: 08/10/17 21:51 Dose: Not Given Ezetimibe (Zetia -) 10 mg PO [facility] Last Admin: 08/10/17 22:09 Dose: 10 mg Ferrous Gluconate (Fergon -) 324 mg PO DAILY [facility] Last Admin: 08/11/17 09:16 Dose: 324 mg Folic Acid (Folic Acid -) 1 mg PO DAILY [facility] Last Admin: 08/11/17 09:16 Dose: 1 mg Insulin Aspart (Novolog Vial Sliding Scale -) 1 vial SQ ACHS [facility] PRN Reason: Protocol Last Admin: 08/11/17 12:15 Dose: 2 units Lidocaine (Lidoderm Patch -) 1 patch TP HS [facility] Last Admin: 08/10/17 22:07 Dose: 1 patch Metoprolol Succinate (Toprol Xl -) 25 mg PO HS [facility] Last Admin: 08/10/17 22:09 Dose: 25 mg Miscellaneous (Lidoderm Patch Removal) 1 each MC DAILY [facility] Last Admin: 08/11/17 09:16 Dose: 1 each Ondansetron HCl (Zofran -) 8 mg PO Q8H PRN PRN Reason: NAUSEA AND/OR VOMITING Pantoprazole Sodium (Protonix -) 40 mg PO BID [facility] Last Admin: 08/11/17 09:15 Dose: 40 mg Pregabalin (Lyrica -) 100 mg PO [facility] Last Admin: 08/10/17 22:09 Dose: 100 mg A/P Upper GI Bleed Duodenal Dieulafoy Lesion s/p endoclipping Acute Blood Loss Anemia Thrombocytopenia COPD LV Diastolic Dysfunction Aortic Stenosis HTN CAD - transfuse PRBC, platelets - monitor CBC - protonix - GI f/u - inhaled bronchodilators - PO per GI - DVT prophylaxis
--- NOTE | 2017-08-11 15:56 | PN ---
Physical Exam: SUBJECTIVE: Patient seen and examined at bedside. She has 2 episode of bloody diarrhea, she denies any fever, chills, N/V/ palpitation , fatigue, SOB, lightheadedness, dizziness. She is asking to go home. She is on soft diet with high fiber. she received another unit of blood today. OBJECTIVE: Vital Signs Period Temp Pulse Resp BP Sys/Rider Pulse Ox Last 24 Hr 97.8 F-98.8 F 74-95 18-18 95-122/48-60 94-95 GENERAL: The patient is awake, alert, and fully oriented, in no acute distress. HEAD: Normal with no signs of trauma. EYES: sclera anicteric, conjunctiva pallor.. ENT: dry mucous membranes. LUNGS: Breath sounds equal, clear to auscultation bilaterally, no wheezes, no crackles, no accessory muscle use. HEART: Regular rate and rhythm, S1, S2, 2/6 blowing murmur on RSB radiated to carotid ,no rub or gallop. ABDOMEN: Soft, nontender, nondistended, normoactive bowel sounds, no guarding, no rebound. EXTREMITIES: warm, well-perfused, no edema. NEUROLOGICAL: with good mentation SKIN: Warm, dry, no rashes or lesions noted Laboratory Results - last 24 hr 08/09/17 08/10/17 08/10/17 08:18 16:48 22:04 WBC RBC Hgb Hct MCV MCH MCHC RDW Plt Count MPV POC Glucometer 114 146 Blood Type TNP Antibody Screen TNP Crossmatch See Detail 08/11/17 08/11/17 08/11/17 06:00 11:55 14:30 WBC 3.2 L RBC 2.24 L Hgb 7.3 L D Hct 22.3 L MCV 99.7 H MCH 32.4 MCHC 32.5 RDW 18.0 H Plt Count 63 L MPV 7.7 D POC Glucometer 151 Blood Type Antibody Screen Crossmatch See Detail Active Medications Generic Name Dose Route Start Last Admin Trade Name Freq PRN Reason Stop Dose Admin Acetaminophen 650 mg 08/06/17 04:44 08/10/17 22:06 Tylenol - PO 650 mg Q6H PRN Administration PAIN Aclidinium [place] 1 puff 08/06/17 10:00 09/28/17 09:17 Tudorza - IH 1 puff BID KRIS Administration Ascorbic Acid 500 mg 08/06/17 10:00 08/11/17 09:16 Vitamin C - PO 500 mg DAILY KRIS Administration Atorvastatin Calcium 10 mg 08/06/17 22:00 08/10/17 22:09 Lipitor - PO 10 mg HS KRIS Administration Budesonide/Formoterol Fumarate 2 puff 08/06/17 10:00 08/11/17 09:17 Symbicort 160/4.5mcg - IH 2 puff BID KRIS Administration Cholecalciferol 1,000 unit 08/06/17 10:00 08/11/17 09:15 Vitamin D3 - PO 1,000 unit DAILY KRIS Administration Cyanocobalamin 1,000 mcg 08/06/17 10:00 08/11/17 09:16 Vitamin B12 - PO 1,000 mcg DAILY KRIS Administration Docusate Sodium 300 mg 08/10/17 22:00 08/10/17 21:51 Colace - PO Not Given HS KRIS Ezetimibe 10 mg 08/06/17 22:00 08/10/17 22:09 Zetia - PO 10 mg HS KRIS Administration Ferrous Gluconate 324 mg 08/06/17 10:00 08/11/17 09:16 Fergon - PO 324 mg DAILY KRIS Administration Folic Acid 1 mg 08/06/17 10:00 08/11/17 09:16 Folic Acid - PO 1 mg DAILY KRIS Administration Insulin Aspart 1 vial 08/06/17 07:00 08/11/17 12:15 Novolog Vial Sliding Scale - SQ 2 units ACHS KRIS Administration Protocol Lidocaine 1 patch 08/08/17 22:15 08/10/17 22:07 Lidoderm Patch - TP 1 patch HS KRIS Administration Metoprolol Succinate 25 mg 08/06/17 22:00 08/10/17 22:09 Toprol Xl - PO 25 mg HS KRIS Administration Miscellaneous 1 each 08/09/17 10:00 08/11/17 09:16 Lidoderm Patch Removal MC 1 each DAILY KRIS Administration Ondansetron HCl 8 mg 08/06/17 01:37 Zofran - PO Q8H PRN NAUSEA AND/OR VOMITING Pantoprazole Sodium 40 mg 08/10/17 22:00 08/11/17 09:15 Protonix - PO 40 mg BID KRIS Administration Pregabalin 100 mg 08/06/17 22:30 08/10/17 22:09 Lyrica - PO 100 mg HS KRIS Administration CBC, BMP 08/11/17 06:00 08/09/17 07:30 ASSESSMENT/PLAN: 76yo F with PMH of anemia, HTN, DCHF, ,COPD (on home O2 2L), thrombocytopenia , NIDDM,duodenal ulcer( s/p epi injection, cautery and endoclipping)chronic neck and shoulder pain, cirrhosis presents with c/o acute exacerbation of back and neck pain.She was found in Ed to have Hemoglobin of 6.3 and was admitted to med-surg for further evaluation. # sever symptomatic anemia, acute on chronic , * Likely secondary to acute blood loss from GI system ( duodenal ulcer vs AVM, VS diverticulosis vs recurrent Dieulafoy ) most likely vs anemia of chronic disease vs iron deficiency anemia * 2 large IV pore * S/P PRBCPs, ,total of 4 units in ED consider lasix for more transfusion. * GI consult, EGD today morning showed esophagitis/gastritis/dieulafoy lesion which was treated with epi and clipping x2 * transfuse another unit of blood today follow cbc * Protonix 40 mg BID for 2 weeks , then once a day * b12 , Folate, WNL from previous studies * Iron studies : ferritine 32.7, Iron sat 6 L, Iron 20, TIBC 357 * [place] + * refuse GURJIT * Check coags now * Check orthostatic vital signs * Follow post-transfusion CBC * Avoid ASA, NSAIDS * one unit PLT transfused, consider to transfuse other if continue to bleed * consider CTA if continue to bleed * Advance to soft high fiber diet per GI * # Constipation ,resolved * multiple bloody BM * continue Miralax PRN * #Thrombocytopenia, * PLT 72 drop to 63 , s/p one unit plt transfusion * Chronic,had h/O platelets transfusion last November in setting of GI bleeding * Likely 2/2 liver cirrhosis vs malignancy * consider platelet transfusion as needed * Monitor CBC * had previous work up with but she refused any 2nd opinion , bone biopsy or any malignancy work up (I am 76 i don't want to deal with any chemo or surgery patient answer) #elevated troponin, * likely troponin leak in setting of acute anemia. * no signs of chest pain. trend trop * unlikely cardiac event. * repeat cbc # lower back pain , neck Pain , Sholder pain Acute on chronic likely 2/2 degenerative arthritis * Physical exam WNL * Pain killer Tylenol 650 mg PO Q6hr , muscle relaxant Robaxan * monitor clinically * Improved in ER after robaxan # DM2, * Hold home meds * ISS * BGM * * # COPD, stable * no acute exacerbation * Duoneb * 2L O2 NC at home #CHF, diastolic, * Stable, no sign of volum overloaded * Strict I/O , daily weight * evaluate fluid volum after transfusion * consider lasix if more transfusion is needed * Hold ASA * # HTN, * continue toprol 25 PO per her PCP (half of original dose 50 PO daily ) * hold other BP med valsartan, furosemide per PCP * # FEN * F: IV fluids 500 CC bolus in ED ,hold fluids due to DCHF * E monitor * N: on soft diet, high fiber * # Proph: * DVT : High risk , SCDs , hold pharmalogical anticoagulation due to possible GI bleed * GI: Protonix drip * # Dispo * Admit to med-surg * Visit type - Emergency Visit Emergency Visit: Yes ED Registration Date: 08/06/17 Care time: The patient presented to the Emergency Department on the above date and was hospitalized for further evaluation of their emergent condition. - New Patient This patient is new to me today: No - Critical Care Critical Care patient: No - Discharge Referral Referred to [facility] Med P.C.: No
--- NOTE | 2017-08-11 18:12 | PN ---
Teaching Attending Note Name of Resident: Seven Durbin ATTENDING PHYSICIAN STATEMENT I saw and evaluated the patient. I reviewed the resident's note and discussed the case with the resident. I agree with the resident's findings and plan as documented. SUBJECTIVE: Patient says she had dark brown stool this morning. Wants to go home. OBJECTIVE: Vital Signs Period Temp Pulse Resp BP Sys/Rider Pulse Ox Last 24 Hr 97.8 F-98.8 F 74-95 18-18 95-137/48-60 94-95 HEART: S1S2, RRR LUNGS: Clear ABDOMEN: Soft, non-tender, non-distended, normal BS EXTREMITIES: No edema Current Medications Generic Name Dose Route Start Last Admin Trade Name Freq PRN Reason Stop Dose Admin Acetaminophen 650 mg 08/06/17 04:44 08/10/17 22:06 Tylenol - PO 650 mg Q6H PRN Administration PAIN Aclidinium [place] 1 puff 08/06/17 10:00 08/11/17 09:17 Tudorza - IH 1 puff BID KRIS Administration Ascorbic Acid 500 mg 08/06/17 10:00 08/11/17 09:16 Vitamin C - PO 500 mg DAILY KRIS Administration Atorvastatin Calcium 10 mg 08/06/17 22:00 08/10/17 22:09 Lipitor - PO 10 mg HS KRIS Administration Budesonide/Formoterol Fumarate 2 puff 08/06/17 10:00 08/11/17 09:17 Symbicort 160/4.5mcg - IH 2 puff BID KRIS Administration Cholecalciferol 1,000 unit 08/06/17 10:00 08/11/17 09:15 Vitamin D3 - PO 1,000 unit DAILY KRIS Administration Cyanocobalamin 1,000 mcg 08/06/17 10:00 08/11/17 09:16 Vitamin B12 - PO 1,000 mcg DAILY KRIS Administration Docusate Sodium 300 mg 08/10/17 22:00 08/10/17 21:51 Colace - PO Not Given HS KRIS Ezetimibe 10 mg 08/06/17 22:00 08/10/17 22:09 Zetia - PO 10 mg HS KRIS Administration Ferrous Gluconate 324 mg 08/06/17 10:00 08/11/17 09:16 Fergon - PO 324 mg DAILY KRIS Administration Folic Acid 1 mg 08/06/17 10:00 08/11/17 09:16 Folic Acid - PO 1 mg DAILY KRIS Administration Insulin Aspart 1 vial 08/06/17 07:00 08/11/17 16:42 Novolog Vial Sliding Scale - SQ Not Given ACHS [facility] Protocol Lidocaine 1 patch 08/08/17 22:15 08/10/17 22:07 Lidoderm Patch - TP 1 patch HS KRIS Administration Metoprolol Succinate 25 mg 08/06/17 22:00 08/10/17 22:09 Toprol Xl - PO 25 mg HS KRIS Administration Miscellaneous 1 each 08/09/17 10:00 08/11/17 09:16 Lidoderm Patch Removal MC 1 each DAILY KRIS Administration Ondansetron HCl 8 mg 08/06/17 01:37 Zofran - PO Q8H PRN NAUSEA AND/OR VOMITING Pantoprazole Sodium 40 mg 08/10/17 22:00 08/11/17 09:15 Protonix - PO 40 mg BID KRIS Administration Pregabalin 100 mg 08/06/17 22:30 08/10/17 22:09 Lyrica - PO 100 mg HS KRIS Administration ASSESSMENT AND PLAN: This is a 76 year old woman with a history of anemia, duodenal upper GI bleed, CAD, HTN, diastolic HF, aortic stenosis, type 2 DM, chronic neck and shoulder pain, oxygen dependent COPD, cirrhosis who presented to the ED with shoulder pain and was found to be anemic. 1. Symptomatic anemia - Transfused 2 units PRBCs - EGD 08/08 showed distal esophagitis, antral gastritis, Dieulafoy lesion which was injected with epinephrine and clipped - No aspirin, NSAIDs - Continue iron, folate, B12 supplementation - Hemoglobin 7.3 today - transfuse 1 unit PRBCs 2. Chronic thrombocytopenia - Transfused 1 unit platelets - Refusing bone marrow biopsy as she does not want any treatment 3. Chronic hypoxic respiratory failure secondary to COPD - Stable - Continue oxygen, Symbicort, Tudorza 4. Chronic diastolic heart failure - Stable 5. CAD - Continue Toprol XL, Lipitor, Zetia - No aspirin secondary to GI bleeding 6. Esophagitis/gastritis - Continue Protonix - No aspirin, NSAIDs 7. HTN - Continue Toprol XL 8. Type 2 DM - Continue Novolog sliding scale 9. Hyperlipidemia - Continue Lipitor, Zetia
--- NOTE | 2017-08-11 19:04 | PN ---
GI Progress Note Subjective: GASTROENTEROLOGY SEEN BY DR HURTADO TODAY STILL WITH PANCYTOPENIA HAD DARK BROWN STOOL TODAY GETTING UNIT PRBC TODAY AND PLATELETS - Objective Vital Signs: Vital Signs Temperature 98.4 F 08/11/17 17:50 Pulse Rate 89 08/11/17 17:50 Respiratory Rate 18 08/11/17 17:50 Blood Pressure 137/56 08/11/17 17:50 O2 Sat by Pulse Oximetry (%) 95 08/11/17 09:00 Constitutional: No Distress, Calm Eyes: Yes: Conjunctiva Clear HENT: Yes: Normocephalic Neck: Yes: Supple Cardiovascular: Yes: Regular Rate and Rhythm Respiratory: Yes: Regular Gastrointestinal Inspection: Yes: WNL ...Auscultate: Yes: Normoactive Bowel Sounds ...Palpate: Yes: Soft Extremities: Yes: WNL Labs: CBC, BMP 08/11/17 06:00 08/09/17 07:30 INR, PTT INR 1.29 (0.82-1.09) H 08/07/17 06:20 Problem List - Problems (1) GI (gastrointestinal hemorrhage) Assessment/Plan: STILL WITH SOME BLEEDING , HGB 7.8 PLT LESS THAN 50 HEMATOLOGY CONSULT? CONSIDER TRANSFUSON OF PLT IF CONTINUED BLEEDING ABSOLUTLEY NO ASA, NO NSAIDS PROTONIX 40 MG PO BID FOR 2 WEEKS THEN ONCE A DAY SOFT DIET HIGH FIBER BLEEDING MAY NOT BE FROM LESION IN DUODENUM CAN BE DIVERTICULAR OR AVM IN OTHER AREA OF GI TRACT BUT BLEEDING SEEMS TO HAVE SLOWED OR STOPPED WITH PLTS TRANSFUSIONS (NEXT LARGE BLEEDING EPISODE SUGGEST CTA) NO OFFICAL DOCUMENTATION OF CIRRHOSIS BUT CT SCAN SUGGEST IRREGULARITY OF HEPATIC SURFACE AND SOME SPLENOMEGALY. NO ESOPHAGEAL VARICES WERE SEEN DURING EGD. AWAIT HEMATOLOGY WORKUP REPAET EGD AND/OR COLON IF REBLEEDS Code(s): K92.2 - GASTROINTESTINAL HEMORRHAGE, UNSPECIFIED (2) Anemia due to blood loss, acute Code(s): D62 - ACUTE POSTHEMORRHAGIC ANEMIA (3) Dieulafoy lesion of duodenum Code(s): K31.82 - DIEULAFOY LESION (HEMORRHAGIC) OF STOMACH AND DUODENUM (4) Diverticulosis of colon Code(s): K57.30 - DVRTCLOS OF LG INT W/O PERFORATION OR ABSCESS W/O BLEEDING (5) Thrombocytopenia Code(s): D69.6 - THROMBOCYTOPENIA, UNSPECIFIED
[2017-08-11] MEDS: DOCUSATE SODIUM 100 MG CAPSULE (FP) PO SCH (22:54)
[2017-08-11] MEDS: LIDOCAINE 5% TOPICAL PATCH TP SCH (22:54)
[2017-08-11] MEDS: EZETIMIBE 10 MG TABLET (FP) PO SCH (22:55)
[2017-08-11] MEDS: PREGABALIN 50 MG CAPSULE PO SCH (22:56)
[2017-08-11] MEDS: METOPROLOL SUCCINATE 25 MG TAB.SR.24H (FP) PO SCH (22:56)
[2017-08-11] MEDS: ATORVASTATIN CA 10 MG TABLET (FP) PO SCH (22:56)
[2017-08-11] MEDS: ACETAMINOPHEN 325 MG TABLET (FP) PO PRN (23:00)
[2017-08-11 23:29] LABS: MCH 31.9 pg (25.7-33.7); MCHC 32.9 g/dl (32.0-36.0); MEAN CELL VOLUME 96.9 fl (80-96); MEAN PLT VOLUME 7.8 fl (7.5-11.1); PLATELET COUNT 61 K/MM3 (134-434); RDW 18.1 % (11.6-15.6); WHITE BLOOD COUNT 3.6 K/mm3 (4.0-10.0)
[2017-08-12] MEDS: INSULIN SLIDING SCALE (NOVOLOG) 1 VIAL SQ SCH ×4 (06:00→21:45)
[2017-08-12 07:06] LABS: EOSINOPHIL 4.8 % (0-4.5); MCH 31.6 pg (25.7-33.7); MCHC 32.6 g/dl (32.0-36.0); MEAN PLT VOLUME 7.5 fl (7.5-11.1); PLATELET COUNT 53 K/MM3 (134-434); RDW 18.7 % (11.6-15.6)
[2017-08-12 07:24] LABS: INR 1.31 (0.82-1.09); PROTHROMBIN TIME (PATIENT) 14.5 SEC (9.98-11.88)
[2017-08-12 07:27] LABS: ACTIVATED PTT 36.8 SECONDS (26.9-34.4)
[2017-08-12] MEDS: BUDESONIDE/FORMETEROL FUMARATE 160/4.5 mcg INHALER IH SCH ×2 (10:41→21:35)
[2017-08-12] MEDS: CYANOCOBALAMIN 1,000 MCG TABLET (FP) PO SCH (10:42)
[2017-08-12] MEDS: PANTOPRAZOLE 40 MG TABLET (FP) PO SCH ×2 (10:42→21:38)
[2017-08-12] MEDS: FERROUS GLUCONATE 324 MG TAB (FP) PO SCH (10:42)
[2017-08-12] MEDS: FOLIC ACID 1 MG TABLET (FP) PO SCH (10:42)
[2017-08-12] MEDS: ASCORBIC ACID 500 MG TABLET (FP) PO SCH (10:42)
[2017-08-12] MEDS: CHOLECALCIFEROL (VITAMIN D3) 1,000 UNIT TABLET (FP) PO SCH (10:42)
[2017-08-12] MEDS: ACLIDINIUM BROMIDE 400 MCG/INH AERO.POWD IH SCH ×2 (10:42→21:35)
[2017-08-12] MEDS: LIDOCAINE PATCH REMOVAL MC SCH (10:49)
--- NOTE | 2017-08-12 15:09 | PN ---
Progress Note (short form) - Note Progress Note: PULMONARY PATIENT KNOWN TO OUR SERVICE NO FURTHER BLEEDING HGB/PLTS STILL DROPPING VSS ANICTERIC DISTANT BUT CLEAR BREATH SOUNDS S1S2 BS+ SOFT NO EDEMA LABS/MEDS/NOTES/PROCEDURES REVIEWED S/P UGI BLEEDING WITH H/O THROMBOCYTOPENIA/HYPERSPLENISM MULTIPLE CO-MORBID CONDITIONS LISTED IN H/P HGB /PLTS ARE DROPPING WOULD CONTINUE TO MONITOR PARAMETERS 2 UNITS PRBC'S/1 UNIT PLTS Sami LEE MD
--- NOTE | 2017-08-12 16:06 | PN ---
GI Progress Note Subjective: GASTROENTEROLOGY NO BLEEDING TODAY - Objective Vital Signs: Vital Signs Temperature 98.0 F 08/12/17 14:28 Pulse Rate 95 H 08/12/17 14:28 Respiratory Rate 20 08/12/17 14:28 Blood Pressure 139/67 08/12/17 14:28 O2 Sat by Pulse Oximetry (%) 95 08/11/17 21:00 Constitutional: Calm Eyes: Yes: Conjunctiva Clear HENT: Yes: Normocephalic Cardiovascular: Yes: Regular Rate and Rhythm Respiratory: Yes: Regular Gastrointestinal Inspection: Yes: WNL ...Auscultate: Yes: Normoactive Bowel Sounds ...Palpate: Yes: Soft Extremities: Yes: WNL Labs: CBC, BMP 08/12/17 06:58 08/09/17 07:30 INR, PTT INR 1.31 (0.82-1.09) H 08/12/17 06:58 Fibrinogen 213.0 mg/dL (238-498) L 08/12/17 06:58 Problem List - Problems (1) GI (gastrointestinal hemorrhage) Assessment/Plan: STILL WITH SOME BLEEDING , HGB 7.8 PLT LESS THAN 50 HEMATOLOGY CONSULT: TRANSFUSON OF PLT AND 2 MORE UNITS PRBC TODA AND FOLLOW LEVELS ABSOLUTLEY NO ASA, NO NSAIDS PROTONIX 40 MG PO BID FOR 2 WEEKS THEN ONCE A DAY SOFT DIET HIGH FIBER BLEEDING MAY NOT BE FROM LESION IN DUODENUM CAN BE DIVERTICULAR OR AVM IN OTHER AREA OF GI TRACT BUT BLEEDING SEEMS TO HAVE STOPPED WITH PLTS TRANSFUSIONS ( NEXT LARGE BLEEDING EPISODE SUGGEST CTA) NO OFFICAL DOCUMENTATION OF CIRRHOSIS BUT CT SCAN SUGGEST IRREGULARITY OF HEPATIC SURFACE AND SOME SPLENOMEGALY. NO ESOPHAGEAL VARICES WERE SEEN DURING EGD. Code(s): K92.2 - GASTROINTESTINAL HEMORRHAGE, UNSPECIFIED (2) Anemia due to blood loss, acute Code(s): D62 - ACUTE POSTHEMORRHAGIC ANEMIA (3) Dieulafoy lesion of duodenum Code(s): K31.82 - DIEULAFOY LESION (HEMORRHAGIC) OF STOMACH AND DUODENUM (4) Diverticulosis of colon Code(s): K57.30 - DVRTCLOS OF LG INT W/O PERFORATION OR ABSCESS W/O BLEEDING (5) Thrombocytopenia Code(s): D69.6 - THROMBOCYTOPENIA, UNSPECIFIED
--- NOTE | 2017-08-12 17:27 | PN ---
Teaching Attending Note Name of Resident: Seven Durbin ATTENDING PHYSICIAN STATEMENT I saw and evaluated the patient. I reviewed the resident's note and discussed the case with the resident. I agree with the resident's findings and plan as documented. SUBJECTIVE: No complaints. She reports having brown stool this morning. OBJECTIVE: Vital Signs Period Temp Pulse Resp BP Sys/Rider Pulse Ox Last 24 Hr 98 F-98.4 F 77-95 18-20 89-139/45-78 95 HEART: S1S2, RRR LUNGS: Clear ABDOMEN: Soft, non-tender, non-distended, normal BS EXTREMITIES: No edema Current Medications Generic Name Dose Route Start Last Admin Trade Name Freq PRN Reason Stop Dose Admin Acetaminophen 650 mg 08/06/17 04:44 08/11/17 23:00 Tylenol - PO 650 mg Q6H PRN Administration PAIN Aclidinium [place] 1 puff 08/06/17 10:00 08/12/17 10:42 Tudorza - IH 1 puff BID KRIS Administration Ascorbic Acid 500 mg 08/06/17 10:00 08/12/17 10:42 Vitamin C - PO 500 mg DAILY KRIS Administration Atorvastatin Calcium 10 mg 08/06/17 22:00 08/11/17 22:56 Lipitor - PO 10 mg HS KRIS Administration Budesonide/Formoterol Fumarate 2 puff 08/06/17 10:00 08/12/17 10:41 Symbicort 160/4.5mcg - IH 2 puff BID KRIS Administration Cholecalciferol 1,000 unit 08/06/17 10:00 08/12/17 10:42 Vitamin D3 - PO 1,000 unit DAILY KRIS Administration Cyanocobalamin 1,000 mcg 08/06/17 10:00 08/12/17 10:42 Vitamin B12 - PO 1,000 mcg DAILY KRIS Administration Docusate Sodium 300 mg 08/10/17 22:00 08/11/17 22:54 Colace - PO Not Given HS KRIS Ezetimibe 10 mg 08/06/17 22:00 08/11/17 22:55 Zetia - PO 10 mg HS KRIS Administration Ferrous Gluconate 324 mg 08/06/17 10:00 08/12/17 10:42 Fergon - PO 324 mg DAILY KRIS Administration Folic Acid 1 mg 08/06/17 10:00 08/12/17 10:42 Folic Acid - PO 1 mg DAILY KRIS Administration Insulin Aspart 1 vial 08/06/17 07:00 08/12/17 12:14 Novolog Vial Sliding Scale - SQ Not Given ACHS [facility] Protocol Lidocaine 1 patch 08/08/17 22:15 08/11/17 22:54 Lidoderm Patch - TP 1 patch HS KRIS Administration Metoprolol Succinate 25 mg 08/06/17 22:00 08/11/17 22:56 Toprol Xl - PO 25 mg HS KRIS Administration Miscellaneous 1 each 08/09/17 10:00 08/12/17 10:49 Lidoderm Patch Removal MC 1 each DAILY KRIS Administration Ondansetron HCl 8 mg 08/06/17 01:37 Zofran - PO Q8H PRN NAUSEA AND/OR VOMITING Pantoprazole Sodium 40 mg 08/10/17 22:00 08/12/17 10:42 Protonix - PO 40 mg BID KRIS Administration Pregabalin 100 mg 08/06/17 22:30 08/11/17 22:56 Lyrica - PO 100 mg HS KRIS Administration ASSESSMENT AND PLAN: This is a 76 year old woman with a history of anemia, duodenal upper GI bleed, CAD, HTN, diastolic HF, aortic stenosis, type 2 DM, chronic neck and shoulder pain, oxygen dependent COPD, cirrhosis who presented to the ED with shoulder pain and was found to be anemic. 1. Symptomatic anemia - Transfused 3 units PRBCs this admission - Hgb 7.3 -> 8.0 -> 7.3 - EGD 08/08 showed distal esophagitis, antral gastritis, Dieulafoy lesion which was injected with epinephrine and clipped - No aspirin, NSAIDs - Continue iron, folate, B12 supplementation 2. Chronic thrombocytopenia - Transfused 1 unit platelets this admission - Platelets decreasing - Refusing bone marrow biopsy as she does not want any treatment 3. Chronic hypoxic respiratory failure secondary to COPD - Stable - Continue oxygen, Symbicort, Tudorza 4. Chronic diastolic heart failure - Stable 5. CAD - Continue Toprol XL, Lipitor, Zetia - No aspirin secondary to GI bleeding 6. Esophagitis/gastritis - Continue Protonix - No aspirin, NSAIDs 7. HTN - Continue Toprol XL 8. Type 2 DM - Continue Novolog sliding scale 9. Hyperlipidemia - Continue Lipitor, Zetia
--- NOTE | 2017-08-12 18:22 | PN ---
Progress Note (short form) - Note Progress Note: Patient seen and examined No further bleeding as per her. She denies any complains. AFVSS Cor: RSR, +murmur, No gallops Lungs: Clear to P&A Abd: Soft, Normal bowel sounds Ext:No significant edema Skin: No rashes, Integument intact Generic Name Dose Route Start Last Admin Trade Name Freq PRN Reason Stop Dose Admin Acetaminophen 650 mg 08/06/17 04:44 08/11/17 23:00 Tylenol - PO 650 mg Q6H PRN Administration PAIN Aclidinium [place] 1 puff 08/06/17 10:00 08/12/17 10:42 Tudorza - IH 1 puff BID KRIS Administration Ascorbic Acid 500 mg 08/06/17 10:00 08/12/17 10:42 Vitamin C - PO 500 mg DAILY KRIS Administration Atorvastatin Calcium 10 mg 08/06/17 22:00 08/11/17 22:56 Lipitor - PO 10 mg HS KRIS Administration Budesonide/Formoterol Fumarate 2 puff 08/06/17 10:00 08/12/17 10:41 Symbicort 160/4.5mcg - IH 2 puff BID KRIS Administration Cholecalciferol 1,000 unit 08/06/17 10:00 08/12/17 10:42 Vitamin D3 - PO 1,000 unit DAILY KRIS Administration Cyanocobalamin 1,000 mcg 08/06/17 10:00 08/12/17 10:42 Vitamin B12 - PO 1,000 mcg DAILY KRIS Administration Docusate Sodium 300 mg 08/10/17 22:00 08/11/17 22:54 Colace - PO Not Given HS KRIS Ezetimibe 10 mg 08/06/17 22:00 08/11/17 22:55 Zetia - PO 10 mg HS KRIS Administration Ferrous Gluconate 324 mg 08/06/17 10:00 08/12/17 10:42 Fergon - PO 324 mg DAILY KRIS Administration Folic Acid 1 mg 08/06/17 10:00 08/12/17 10:42 Folic Acid - PO 1 mg DAILY KRIS Administration Insulin Aspart 1 vial 08/06/17 07:00 08/12/17 17:47 Novolog Vial Sliding Scale - SQ Not Given ACHS KRIS Protocol Lidocaine 1 patch 08/08/17 22:15 08/11/17 22:54 Lidoderm Patch - TP 1 patch HS KRIS Administration Metoprolol Succinate 25 mg 08/06/17 22:00 08/11/17 22:56 Toprol Xl - PO 25 mg HS KRIS Administration Miscellaneous 1 each 08/09/17 10:00 08/12/17 10:49 Lidoderm Patch Removal MC 1 each DAILY KRIS Administration Ondansetron HCl 8 mg 08/06/17 01:37 Zofran - PO Q8H PRN NAUSEA AND/OR VOMITING Pantoprazole Sodium 40 mg 08/10/17 22:00 08/12/17 10:42 Protonix - PO 40 mg BID KRIS Administration Pregabalin 100 mg 08/06/17 22:30 08/11/17 22:56 Lyrica - PO 100 mg HS KRIS Administration INR, PTT INR 1.31 (0.82-1.09) H 08/12/17 06:58 Fibrinogen 213.0 mg/dL (238-498) L 08/12/17 06:58 Last Vital Signs Temp Pulse Resp BP Pulse Ox 98.1 F 94 H 18 119/50 95 08/12/17 18:04 08/12/17 18:04 08/12/17 18:04 08/12/17 18:04 08/11/17 21:00 CBC, BMP 08/12/17 06:58 08/09/17 07:30 Assessment/Plan; 76 y/o patient with cirrhosis/splenomegaly on CT scan, h/o colonic AVMS, duodenal dileaufoy,HTN, CAD, ,CHF, COPD, pancytopenia comes in with upper GI bleed Pancytopenia: suspect cirrhosis/splenomegaly given coexisting coagulopathy ,previously flow showed no e/o B/T cell lymphoproliferative disorder. increase TLGLs/NK cells. Nl FISH for MDS. JAK2/bcr;abl were negative. -platelets and PRBC today -no further bleeding -monitor for stable counts will follow
--- NOTE | 2017-08-12 19:01 | PN ---
Physical Exam: SUBJECTIVE: Patient seen and examined at bedside. has one bloody BM over night. her hgb drop again after transfuse one units of PRBBs .She denies any fever, chills, N/V, palpitation, CP, SOB, lightheadedness, dizziness. we will transfuse 2 units of PRBB and unit of platelets OBJECTIVE: Vital Signs Period Temp Pulse Resp BP Sys/Rider Pulse Ox Last 24 Hr 98 F-98.2 F 77-95 18-20 89-139/45-78 95-95 GENERAL: The patient is awake, alert, and fully oriented, in no acute distress. HEAD: Normal with no signs of trauma. EYES: sclera anicteric, conjunctiva pallor.. ENT: dry mucous membranes. LUNGS: Breath sounds equal, clear to auscultation bilaterally, no wheezes, no crackles, no accessory muscle use. HEART: Regular rate and rhythm, S1, S2, 2/6 blowing murmur on RSB radiated to carotid ,no rub or gallop. ABDOMEN: Soft, nontender, nondistended, normoactive bowel sounds, no guarding, no rebound. EXTREMITIES: warm, well-perfused, no edema. NEUROLOGICAL: with good mentation SKIN: Warm, dry, no rashes or lesions noted Laboratory Results - last 24 hr 08/09/17 08/11/17 08/11/17 08:18 14:30 22:49 WBC RBC Hgb Hct MCV MCH MCHC RDW Plt Count MPV Neutrophils % Lymphocytes % Monocytes % Eosinophils % Basophils % PT with INR INR PTT (Actin FS) Fibrinogen POC Glucometer 132 Blood Type TNP A POSITIVE Antibody Screen TNP Negative Crossmatch See Detail See Detail 08/11/17 08/12/17 08/12/17 23:05 05:42 06:58 WBC 3.6 L RBC 2.50 L Hgb 8.0 L Hct 24.2 L MCV 96.9 H MCH 31.9 MCHC 32.9 RDW 18.1 H Plt Count 61 L MPV 7.8 Neutrophils % Lymphocytes % Monocytes % Eosinophils % Basophils % PT with INR 14.50 H INR 1.31 H PTT (Actin FS) 36.8 H Fibrinogen 213.0 L POC Glucometer 161 Blood Type Antibody Screen Crossmatch 08/12/17 08/12/17 08/12/17 06:58 12:11 17:42 WBC 3.0 L RBC 2.31 L Hgb 7.3 L Hct 22.4 L MCV 97.0 H MCH 31.6 MCHC 32.6 RDW 18.7 H Plt Count 53 L MPV 7.5 Neutrophils % 62.0 Lymphocytes % 22.2 Monocytes % 10.0 Eosinophils % 4.8 H Basophils % 1.0 PT with INR INR PTT (Actin FS) Fibrinogen POC Glucometer 134 149 Blood Type Antibody Screen Crossmatch Active Medications Generic Name Dose Route Start Last Admin Trade Name Freq PRN Reason Stop Dose Admin Acetaminophen 650 mg 08/06/17 04:44 08/11/17 23:00 Tylenol - PO 650 mg Q6H PRN Administration PAIN Aclidinium [place] 1 puff 08/06/17 10:00 08/12/17 10:42 Tudorza - IH 1 puff BID KRIS Administration Ascorbic Acid 500 mg 08/06/17 10:00 08/12/17 10:42 Vitamin C - PO 500 mg DAILY KRIS Administration Atorvastatin Calcium 10 mg 08/06/17 22:00 08/11/17 22:56 Lipitor - PO 10 mg HS KRIS Administration Budesonide/Formoterol Fumarate 2 puff 08/06/17 10:00 08/12/17 10:41 Symbicort 160/4.5mcg - IH 2 puff BID KRIS Administration Cholecalciferol 1,000 unit 08/06/17 10:00 08/12/17 10:42 Vitamin D3 - PO 1,000 unit DAILY KRIS Administration Cyanocobalamin 1,000 mcg 08/06/17 10:00 08/12/17 10:42 Vitamin B12 - PO 1,000 mcg DAILY KRIS Administration Docusate Sodium 300 mg 08/10/17 22:00 08/11/17 22:54 Colace - PO Not Given HS KRIS Ezetimibe 10 mg 08/06/17 22:00 08/11/17 22:55 Zetia - PO 10 mg HS KRIS Administration Ferrous Gluconate 324 mg 08/06/17 10:00 08/12/17 10:42 Fergon - PO 324 mg DAILY KRIS Administration Folic Acid 1 mg 08/06/17 10:00 08/12/17 10:42 Folic Acid - PO 1 mg DAILY KRIS Administration Insulin Aspart 1 vial 08/06/17 07:00 08/12/17 17:47 Novolog Vial Sliding Scale - SQ Not Given ACHS KRIS Protocol Lidocaine 1 patch 08/08/17 22:15 08/11/17 22:54 Lidoderm Patch - TP 1 patch HS KRIS Administration Metoprolol Succinate 25 mg 08/06/17 22:00 08/11/17 22:56 Toprol Xl - PO 25 mg HS KRIS Administration Miscellaneous 1 each 08/09/17 10:00 08/12/17 10:49 Lidoderm Patch Removal MC 1 each DAILY KRIS Administration Ondansetron HCl 8 mg 08/06/17 01:37 Zofran - PO Q8H PRN NAUSEA AND/OR VOMITING Pantoprazole Sodium 40 mg 08/10/17 22:00 08/12/17 10:42 Protonix - PO 40 mg BID KRIS Administration Pregabalin 100 mg 08/06/17 22:30 08/11/17 22:56 Lyrica - PO 100 mg HS KRIS Administration ASSESSMENT/PLAN: 76yo F with PMH of anemia, HTN, DCHF, ,COPD (on home O2 2L), thrombocytopenia , NIDDM,duodenal ulcer( s/p epi injection, cautery and endoclipping)chronic neck and shoulder pain, cirrhosis presents with c/o acute exacerbation of back and neck pain.She was found in Ed to have Hemoglobin of 6.3 and was admitted to med-surg for further evaluation. # sever symptomatic anemia, acute on chronic , * Likely secondary to acute blood loss from GI system ( duodenal ulcer vs AVM, VS diverticulosis vs recurrent Dieulafoy ) most likely vs anemia of chronic disease vs iron deficiency anemia * 2 large IV pore * S/P PRBCPs, ,total of 6 units, consider lasix for more transfusion. * GI consult, EGD showed esophagitis/gastritis/dieulafoy lesion which was treated with epi and clipping x2 * Protonix 40 mg BID for 2 weeks , then once a day * b12 , Folate, WNL from previous studies * Iron studies : ferritine 32.7, Iron sat 6 L, Iron 20, TIBC 357 * Follow post-transfusion CBC * Avoid ASA, NSAIDS * one unit PLT transfused last night total of 2 , consider to transfuse other if continue to bleed * consider CTA if continue to bleed * Advance to soft high fiber diet per GI * # Constipation ,resolved * no bloody BM last night * continue Miralax PRN * #Thrombocytopenia, * PLT 72 drop to 53 , will transfuse another unit of plt * Chronic,had h/O platelets transfusion last November in setting of GI bleeding * Likely 2/2 liver cirrhosis vs malignancy, * consider platelet transfusion as needed * Monitor CBC * had previous work up with but she refused any 2nd opinion , bone biopsy or any malignancy work up (I am 76 i don't want to deal with any chemo or surgery patient answer) #elevated troponin, resolved * likely troponin leak in setting of acute anemia. * no signs of chest pain. trend trop * unlikely cardiac event. # lower back pain , neck Pain , Sholder pain Acute on chronic likely 2/2 degenerative arthritis * Physical exam WNL * Pain killer Tylenol 650 mg PO Q6hr , muscle relaxant Robaxan, avoid NSAIDS * monitor clinically * Improved in ER after robaxan # DM2, * Hold home meds * ISS * BGM * * # COPD, stable * no acute exacerbation * Duoneb * 2L O2 NC at home #CHF, diastolic, * Stable, no sign of volum overloaded * Strict I/O , daily weight * evaluate fluid volum after transfusion * consider lasix if more transfusion is needed * Hold ASA * # HTN, * continue toprol 25 PO per her PCP (half of original dose 50 PO daily ) * hold other BP med valsartan, furosemide per PCP * # FEN * F: IV fluids 500 CC bolus in ED ,hold fluids due to DCHF * E monitor * N: on soft diet, high fiber * # Proph: * DVT : High risk , SCDs , hold pharmalogical anticoagulation due to possible GI bleed * GI: Protonix drip * # Dispo * Admit to med-surg * Visit type - Emergency Visit Emergency Visit: Yes ED Registration Date: 08/06/17 Care time: The patient presented to the Emergency Department on the above date and was hospitalized for further evaluation of their emergent condition. - New Patient This patient is new to me today: No - Critical Care Critical Care patient: No - Discharge Referral Referred to [facility] Med P.C.: No
[2017-08-12] MEDS: DOCUSATE SODIUM 100 MG CAPSULE (FP) PO SCH (21:35)
[2017-08-12] MEDS: LIDOCAINE 5% TOPICAL PATCH TP SCH (21:36)
[2017-08-12] MEDS: EZETIMIBE 10 MG TABLET (FP) PO SCH (21:37)
[2017-08-12] MEDS: ATORVASTATIN CA 10 MG TABLET (FP) PO SCH (21:39)
[2017-08-12] MEDS: METOPROLOL SUCCINATE 25 MG TAB.SR.24H (FP) PO SCH (21:39)
[2017-08-12] MEDS: PREGABALIN 50 MG CAPSULE PO SCH (21:40)
[2017-08-12] MEDS: ACETAMINOPHEN 325 MG TABLET (FP) PO PRN (21:46)
[2017-08-13] MEDS ORDERED: INSULIN (NOVOLOG) ASPART 100 UNITS/ML 10ML VIAL ONE (06:53)
[2017-08-13] MEDS: INSULIN SLIDING SCALE (NOVOLOG) 1 VIAL SQ SCH ×4 (06:54→21:30)
[2017-08-13 07:29] LABS: INR 1.24 (0.82-1.09); PROTHROMBIN TIME (PATIENT) 13.7 SEC (9.98-11.88)
[2017-08-13 07:32] LABS: ACTIVATED PTT 37.3 SECONDS (26.9-34.4)
[2017-08-13 07:39] LABS: ALBUMIN 2.8 g/dl (3.4-5.0); ANION GAP 9 (8-16); CALCIUM 7.6 mg/dL (8.5-10.1); CO2 26 mmol/L (21-32); GLUCOSE,RANDOM 157 mg/dL (74-106); SGOT/AST 15 U/L (15-37); SGPT/ALT 15 U/L (12-78)
[2017-08-13 07:40] LABS: ALK PHOS 59 U/L (45-117); BILIRUBIN,TOTAL 1.5 mg/dL (0.2-1.0); TOT PROT 5.5 g/dl (6.4-8.2)
[2017-08-13 08:12] LABS: BASOPHIL 0.8 % (0-2.0); EOSINOPHIL 4.8 % (0-4.5); MCH 31.4 pg (25.7-33.7); MCHC 33.2 g/dl (32.0-36.0); MEAN CELL VOLUME 94.6 fl (80-96); NEUTROPHILS 64.6 % (42.8-82.8); PLATELET COUNT 67 K/MM3 (134-434); WHITE BLOOD COUNT 3.7 K/mm3 (4.0-10.0)
[2017-08-13] MEDS: CYANOCOBALAMIN 1,000 MCG TABLET (FP) PO SCH (10:42)
[2017-08-13] MEDS: CHOLECALCIFEROL (VITAMIN D3) 1,000 UNIT TABLET (FP) PO SCH (10:42)
[2017-08-13] MEDS: FOLIC ACID 1 MG TABLET (FP) PO SCH (10:42)
[2017-08-13] MEDS: PANTOPRAZOLE 40 MG TABLET (FP) PO SCH ×2 (10:43→21:32)
[2017-08-13] MEDS: ACLIDINIUM BROMIDE 400 MCG/INH AERO.POWD IH SCH ×2 (10:43→21:38)
[2017-08-13] MEDS: ASCORBIC ACID 500 MG TABLET (FP) PO SCH (10:43)
[2017-08-13] MEDS: BUDESONIDE/FORMETEROL FUMARATE 160/4.5 mcg INHALER IH SCH ×2 (10:43→21:38)
[2017-08-13] MEDS: FERROUS GLUCONATE 324 MG TAB (FP) PO SCH (10:44)
[2017-08-13] MEDS: LIDOCAINE PATCH REMOVAL MC SCH (10:44)
--- NOTE | 2017-08-13 11:02 | PN ---
Teaching Attending Note Name of Resident: Seven Durbin ATTENDING PHYSICIAN STATEMENT I saw and evaluated the patient. I reviewed the resident's note and discussed the case with the resident. I agree with the resident's findings and plan as documented. SUBJECTIVE: No complaints. Wants to go home. OBJECTIVE: Vital Signs Period Temp Pulse Resp BP Sys/Rider Pulse Ox Last 24 Hr 98.0 F-98.1 F 86-95 18-20 116-139/50-67 HEART: S1S2, RRR LUNGS: Clear ABDOMEN: Soft, non-tender, non-distended, normal BS EXTREMITIES: No edema Current Medications Generic Name Dose Route Start Last Admin Trade Name Freq PRN Reason Stop Dose Admin Acetaminophen 650 mg 08/06/17 04:44 08/12/17 21:46 Tylenol - PO 650 mg Q6H PRN Administration PAIN Aclidinium [place] 1 puff 08/06/17 10:00 08/13/17 10:43 Tudorza - IH 1 puff BID KRIS Administration Ascorbic Acid 500 mg 08/06/17 10:00 08/13/17 10:43 Vitamin C - PO 500 mg DAILY KRIS Administration Atorvastatin Calcium 10 mg 08/06/17 22:00 08/12/17 21:39 Lipitor - PO 10 mg HS KRIS Administration Budesonide/Formoterol Fumarate 2 puff 08/06/17 10:00 08/13/17 10:43 Symbicort 160/4.5mcg - IH 2 puff BID KRIS Administration Cholecalciferol 1,000 unit 08/06/17 10:00 08/13/17 10:42 Vitamin D3 - PO 1,000 unit DAILY KRIS Administration Cyanocobalamin 1,000 mcg 08/06/17 10:00 08/13/17 10:42 Vitamin B12 - PO 1,000 mcg DAILY KRIS Administration Docusate Sodium 300 mg 08/10/17 22:00 08/12/17 21:35 Colace - PO Not Given HS KRIS Ezetimibe 10 mg 08/06/17 22:00 08/12/17 21:37 Zetia - PO 10 mg HS KRIS Administration Ferrous Gluconate 324 mg 08/06/17 10:00 08/13/17 10:44 Fergon - PO 324 mg DAILY KRIS Administration Folic Acid 1 mg 08/06/17 10:00 08/13/17 10:42 Folic Acid - PO 1 mg DAILY KRIS Administration Insulin Aspart 1 vial 08/06/17 07:00 08/13/17 06:54 Novolog Vial Sliding Scale - SQ 2 units ACHS KRIS Administration Protocol Lidocaine 1 patch 08/08/17 22:15 08/12/17 21:36 Lidoderm Patch - TP 1 patch HS KRIS Administration Metoprolol Succinate 25 mg 08/06/17 22:00 08/12/17 21:39 Toprol Xl - PO 25 mg HS KRIS Administration Miscellaneous 1 each 08/09/17 10:00 08/13/17 10:44 Lidoderm Patch Removal MC 1 each DAILY KRIS Administration Ondansetron HCl 8 mg 08/06/17 01:37 Zofran - PO Q8H PRN NAUSEA AND/OR VOMITING Pantoprazole Sodium 40 mg 08/10/17 22:00 08/13/17 10:43 Protonix - PO 40 mg BID KRIS Administration Pregabalin 100 mg 08/06/17 22:30 08/12/17 21:40 Lyrica - PO 100 mg HS KRIS Administration ASSESSMENT AND PLAN: This is a 76 year old woman with a history of anemia, duodenal upper GI bleed, CAD, HTN, diastolic HF, aortic stenosis, type 2 DM, chronic neck and shoulder pain, oxygen dependent COPD, cirrhosis who presented to the ED with shoulder pain and was found to be anemic. 1. Symptomatic anemia - Transfused additional 2 units PRBCs yesterday (5 units this admission) - Hgb 9.6 this morning - EGD 08/08 showed distal esophagitis, antral gastritis, Dieulafoy lesion which was injected with epinephrine and clipped - No aspirin, NSAIDs - Continue iron, folate, B12 supplementation - Continue to monitor hemoglobin 2. Chronic thrombocytopenia - Transfused 2 units platelets this admission - Refusing bone marrow biopsy as she does not want any treatment - Continue to monitor platelet count 3. Chronic hypoxic respiratory failure secondary to COPD - Stable - Continue oxygen, Symbicort, Tudorza 4. Chronic diastolic heart failure - Stable 5. CAD - Continue Toprol XL, Lipitor, Zetia - No aspirin secondary to GI bleeding 6. Esophagitis/gastritis - Continue Protonix - No aspirin, NSAIDs 7. HTN - Continue Toprol XL 8. Type 2 DM - Continue Novolog sliding scale 9. Hyperlipidemia - Continue Lipitor, Zetia 10. Disposition - Discharge in AM if stable
--- NOTE | 2017-08-13 11:21 | PN ---
Physical Exam: SUBJECTIVE: Patient seen and examined at bedside. No acute events over night. She denies any fever, chills, N/V/D/C, No bloody BM, she denies any fatigue, lightheadedness, dizziness, Sob. 2 units of blood and one plt was transferred yesterday evening. OBJECTIVE: Vital Signs Period Temp Pulse Resp BP Sys/Rider Pulse Ox Last 24 Hr 98.0 F-98.1 F 86-95 18-20 116-139/50-67 GENERAL: The patient is awake, alert, and fully oriented, in no acute distress. HEAD: Normal with no signs of trauma. EYES: sclera anicteric, conjunctiva pallor.. ENT: dry mucous membranes. LUNGS: Breath sounds equal, clear to auscultation bilaterally, no wheezes, no crackles, no accessory muscle use. HEART: Regular rate and rhythm, S1, S2, 2/6 blowing murmur on RSB radiated to carotid ,no rub or gallop. ABDOMEN: Soft, nontender, nondistended, normoactive bowel sounds, no guarding, no rebound. EXTREMITIES: warm, well-perfused, no edema. NEUROLOGICAL: with good mentation SKIN: Warm, dry, no rashes or lesions noted Laboratory Results - last 24 hr 08/09/17 08/11/17 08/12/17 08:18 14:30 12:11 WBC RBC Hgb Hct MCV MCH MCHC RDW Plt Count MPV Neutrophils % Lymphocytes % Monocytes % Eosinophils % Basophils % PT with INR INR PTT (Actin FS) Sodium Potassium Chloride Carbon Dioxide Anion Gap BUN Creatinine Creat Clearance w eGFR POC Glucometer 134 Random Glucose Calcium Total Bilirubin AST ALT Alkaline Phosphatase Total Protein Albumin Blood Type TNP A POSITIVE Antibody Screen TNP Negative Crossmatch See Detail See Detail 08/12/17 08/12/17 08/13/17 17:42 21:44 06:00 WBC RBC Hgb Hct MCV MCH MCHC RDW Plt Count MPV Neutrophils % Lymphocytes % Monocytes % Eosinophils % Basophils % PT with INR 13.70 H INR 1.24 H PTT (Actin FS) 37.3 H Sodium Potassium Chloride Carbon Dioxide Anion Gap BUN Creatinine Creat Clearance w eGFR POC Glucometer 149 163 Random Glucose Calcium Total Bilirubin AST ALT Alkaline Phosphatase Total Protein Albumin Blood Type Antibody Screen Crossmatch 08/13/17 08/13/17 08/13/17 06:00 06:00 06:52 WBC 3.7 L RBC 3.04 L D Hgb 9.6 L D Hct 28.8 L D MCV 94.6 MCH 31.4 MCHC 33.2 RDW 19.0 H Plt Count 67 L D MPV 8.0 Neutrophils % 64.6 Lymphocytes % 20.1 Monocytes % 9.7 Eosinophils % 4.8 H Basophils % 0.8 PT with INR INR PTT (Actin FS) Sodium 143 Potassium 3.8 Chloride 108 H Carbon Dioxide 26 Anion Gap 9 BUN 9 D Creatinine 1.0 D Creat Clearance w eGFR 53.76 POC Glucometer 162 Random Glucose 157 H D Calcium 7.6 L Total Bilirubin 1.5 H D AST 15 D ALT 15 Alkaline Phosphatase 59 Total Protein 5.5 L Albumin 2.8 L Blood Type Antibody Screen Crossmatch Active Medications Generic Name Dose Route Start Last Admin Trade Name Freq PRN Reason Stop Dose Admin Acetaminophen 650 mg 08/06/17 04:44 08/12/17 21:46 Tylenol - PO 650 mg Q6H PRN Administration PAIN Aclidinium [place] 1 puff 08/06/17 10:00 08/13/17 10:43 Tudorza - IH 1 puff BID KRIS Administration Ascorbic Acid 500 mg 08/06/17 10:00 08/13/17 10:43 Vitamin C - PO 500 mg DAILY KRIS Administration Atorvastatin Calcium 10 mg 08/06/17 22:00 08/12/17 21:39 Lipitor - PO 10 mg HS KRIS Administration Budesonide/Formoterol Fumarate 2 puff 08/06/17 10:00 08/13/17 10:43 Symbicort 160/4.5mcg - IH 2 puff BID KRIS Administration Cholecalciferol 1,000 unit 08/06/17 10:00 08/13/17 10:42 Vitamin D3 - PO 1,000 unit DAILY KRIS Administration Cyanocobalamin 1,000 mcg 08/06/17 10:00 08/13/17 10:42 Vitamin B12 - PO 1,000 mcg DAILY KRIS Administration Docusate Sodium 300 mg 08/10/17 22:00 08/12/17 21:35 Colace - PO Not Given HS KRIS Ezetimibe 10 mg 08/06/17 22:00 08/12/17 21:37 Zetia - PO 10 mg HS KRIS Administration Ferrous Gluconate 324 mg 08/06/17 10:00 08/13/17 10:44 Fergon - PO 324 mg DAILY KRIS Administration Folic Acid 1 mg 08/06/17 10:00 08/13/17 10:42 Folic Acid - PO 1 mg DAILY KRIS Administration Insulin Aspart 1 vial 08/06/17 07:00 08/13/17 06:54 Novolog Vial Sliding Scale - SQ 2 units ACHS KRIS Administration Protocol Lidocaine 1 patch 08/08/17 22:15 08/12/17 21:36 Lidoderm Patch - TP 1 patch HS KRIS Administration Metoprolol Succinate 25 mg 08/06/17 22:00 08/12/17 21:39 Toprol Xl - PO 25 mg HS KRIS Administration Miscellaneous 1 each 08/09/17 10:00 08/13/17 10:44 Lidoderm Patch Removal MC 1 each DAILY KRIS Administration Ondansetron HCl 8 mg 08/06/17 01:37 Zofran - PO Q8H PRN NAUSEA AND/OR VOMITING Pantoprazole Sodium 40 mg 08/10/17 22:00 08/13/17 10:43 Protonix - PO 40 mg BID KRIS Administration Pregabalin 100 mg 08/06/17 22:30 08/12/17 21:40 Lyrica - PO 100 mg HS KRIS Administration CBC, BMP 08/13/17 06:00 08/13/17 06:00 ASSESSMENT/PLAN: 76yo F with PMH of anemia, HTN, DCHF, ,COPD (on home O2 2L), thrombocytopenia , NIDDM,duodenal ulcer( s/p epi injection, cautery and endoclipping)chronic neck and shoulder pain, cirrhosis presents with c/o acute exacerbation of back and neck pain.She was found in Ed to have Hemoglobin of 6.3 and was admitted to med-surg for further evaluation. # sever symptomatic anemia, acute on chronic , * Likely secondary to acute blood loss from GI system ( duodenal ulcer vs AVM, VS diverticulosis vs recurrent Dieulafoy ) most likely vs anemia of chronic disease vs iron deficiency anemia * 2 large IV pore * S/P PRBCPs, ,total of 6 units, consider lasix for more transfusion. * GI consult, EGD showed esophagitis/gastritis/dieulafoy lesion which was treated with epi and clipping x2 * Protonix 40 mg BID for 2 weeks , then once a day * b12 , Folate, WNL from previous studies * Iron studies : ferritine 32.7, Iron sat 6 L, Iron 20, TIBC 357 * Follow post-transfusion CBC * Avoid ASA, NSAIDS * one unit PLT transfused last night total of 2 , consider to transfuse other if continue to bleed * consider CTA if continue to bleed * Advance to soft high fiber diet per GI * # Constipation ,resolved * no bloody BM over night * continue Miralax PRN * #Thrombocytopenia, * PLT 72 drop to 67 , S/P unit of plt transfusion * suspected cirrhosis /splenomegaly per CT abdomen ,[facility] Myeloproliferative disordered malignancy work negative (no e/o B/T cell lymphoproliferative disorder. increase TLGLs/NK cells. Nl FISH for MDS. JAK2/bcr;abl were negative) * Chronic,had h/O platelets transfusion last November in setting of GI bleeding * consider platelet transfusion as needed * Monitor CBC * had previous work up with but she refused any 2nd opinion , bone biopsy or any malignancy work up (I am 76 i don't want to deal with any chemo or surgery patient answer) #elevated troponin, resolved * likely troponin leak in setting of acute anemia. * no signs of chest pain. trend trop * unlikely cardiac event. # lower back pain , neck Pain , Sholder pain Acute on chronic likely 2/2 degenerative arthritis , improved * Physical exam WNL * Pain killer Tylenol 650 mg PO Q6hr , muscle relaxant Robaxan, avoid NSAIDS * monitor clinically * Improved in ER after robaxan # DM2, * Hold home meds * ISS * BGM * * # COPD, stable * no acute exacerbation * Duoneb * 2L O2 NC at home #CHF, diastolic, * Stable, no sign of volum overloaded * Strict I/O , daily weight * evaluate fluid volume after transfusion * consider lasix if more transfusion is needed * Hold ASA * # HTN, * continue toprol 25 PO per her PCP (half of original dose 50 PO daily ) * hold other BP med valsartan, furosemide per PCP * # FEN * F: IV fluids 500 CC bolus in ED ,hold fluids due to DCHF * E monitor * N: on soft diet, high fiber * # Proph: * DVT : High risk , SCDs , hold pharmalogical anticoagulation due to possible GI bleed * GI: Protonix drip * # Dispo * Admit to med-surg * possible discharge tomorrow if CBC are stable Visit type - Emergency Visit Emergency Visit: Yes ED Registration Date: 08/06/17 Care time: The patient presented to the Emergency Department on the above date and was hospitalized for further evaluation of their emergent condition. - New Patient This patient is new to me today: No - Critical Care Critical Care patient: No - Discharge Referral Referred to [facility] Med P.C.: No
--- NOTE | 2017-08-13 12:53 | PN ---
Progress Note (short form) - Note Progress Note: PULMONARY NO FURTHER BLEEDING HGB/PLTS IMPROVED POST TRANSFUSIONS VSS ANICTERIC DISTANT BUT CLEAR BREATH SOUNDS S1S2 BS+ SOFT NO EDEMA LABS/MEDS/NOTES/PROCEDURES REVIEWED S/P UGI BLEEDING WITH H/O THROMBOCYTOPENIA/HYPERSPLENISM MULTIPLE CO-MORBID CONDITIONS LISTED IN H/P HGB /PLTS IMPROVED WOULD CONTINUE TO MONITOR PARAMETERS IF REMAINS STABLE HOPEFULLY DISCHARGE IN AM Sami LEE MD
--- NOTE | 2017-08-13 17:37 | PN ---
Progress Note (short form) - Note Progress Note: Patient seen and examined Feels better Last Vital Signs Temp Pulse Resp BP Pulse Ox 98.4 F 82 18 122/79 95 08/13/17 14:57 08/13/17 14:57 08/13/17 14:57 08/13/17 14:57 08/12/17 09:00 Cor: RSR, No murmurs, No gallops Lungs: Clear to P&A Abd: Soft, Normal bowel sounds, No organomegaly Ext:No significant edema Skin: No rashes, Integument intact A/P 76 y/o patient with cirrhosis/splenomegaly on CT scan, h/o colonic AVMS, duodenal dileaufoy,HTN, CAD, ,CHF, COPD, pancytopenia comes in with upper GI bleed s/p PRBCs/platelets counts improved Pancytopenia: suspect cirrhosis/splenomegaly given coexisting coagulopathy/ imaging findings previously flow showed no e/o B/T cell lymphoproliferative disorder. increase TLGLs/NK cells. Nl FISH for MDS. JAK2/bcr;abl were negative possible d/c in am if counts stable
[2017-08-13] MEDS: LIDOCAINE 5% TOPICAL PATCH TP SCH (21:31)
[2017-08-13] MEDS: DOCUSATE SODIUM 100 MG CAPSULE (FP) PO SCH (21:31)
[2017-08-13] MEDS: EZETIMIBE 10 MG TABLET (FP) PO SCH (21:32)
[2017-08-13] MEDS: METOPROLOL SUCCINATE 25 MG TAB.SR.24H (FP) PO SCH (21:32)
[2017-08-13] MEDS: ATORVASTATIN CA 10 MG TABLET (FP) PO SCH (21:32)
[2017-08-13] MEDS: ACETAMINOPHEN 325 MG TABLET (FP) PO PRN (21:33)
[2017-08-13] MEDS: PREGABALIN 50 MG CAPSULE PO SCH (21:33)
[2017-08-14] MEDS: INSULIN SLIDING SCALE (NOVOLOG) 1 VIAL SQ SCH ×2 (06:06→14:25)
[2017-08-14 07:18] LABS: BASOPHIL 1.1 % (0-2.0); EOSINOPHIL 5.1 % (0-4.5); MCH 31.5 pg (25.7-33.7); MCHC 33.2 g/dl (32.0-36.0); MEAN CELL VOLUME 94.9 fl (80-96); MEAN PLT VOLUME 8.4 fl (7.5-11.1); NEUTROPHILS 54.4 % (42.8-82.8); PLATELET COUNT 62 K/MM3 (134-434); RDW 18.2 % (11.6-15.6); WHITE BLOOD COUNT 3.2 K/mm3 (4.0-10.0)
[2017-08-14] MEDS: CYANOCOBALAMIN 1,000 MCG TABLET (FP) PO SCH (10:03)
[2017-08-14] MEDS: CHOLECALCIFEROL (VITAMIN D3) 1,000 UNIT TABLET (FP) PO SCH (10:03)
[2017-08-14] MEDS: PANTOPRAZOLE 40 MG TABLET (FP) PO SCH (10:03)
[2017-08-14] MEDS: FOLIC ACID 1 MG TABLET (FP) PO SCH (10:03)
[2017-08-14] MEDS: ASCORBIC ACID 500 MG TABLET (FP) PO SCH (10:03)
[2017-08-14] MEDS: FERROUS GLUCONATE 324 MG TAB (FP) PO SCH (10:04)
[2017-08-14] MEDS: ACLIDINIUM BROMIDE 400 MCG/INH AERO.POWD IH SCH (10:09)
[2017-08-14] MEDS: BUDESONIDE/FORMETEROL FUMARATE 160/4.5 mcg INHALER IH SCH (10:09)
[2017-08-14] MEDS: LIDOCAINE PATCH REMOVAL MC SCH (10:09)
--- NOTE | 2017-08-14 12:00 | PN ---
Progress Note (short form) - Note Progress Note: PULMONARY NO FURTHER BLEEDING HGB/PLTS IMPROVED POST TRANSFUSIONS AND ARE HOLDING STEADY VSS ANICTERIC DISTANT BUT CLEAR BREATH SOUNDS S1S2 BS+ SOFT NO EDEMA LABS/MEDS/NOTES/PROCEDURES REVIEWED S/P UGI BLEEDING WITH H/O THROMBOCYTOPENIA/HYPERSPLENISM MULTIPLE CO-MORBID CONDITIONS LISTED IN H/P HGB /PLTS IMPROVED WOULD CONTINUE TO MONITOR PARAMETERS AN OUTPATIENT Sami LEE MD
--- NOTE | 2017-08-14 12:36 | DS ---
Physical Exam: SUBJECTIVE: Patient seen and examined OBJECTIVE: Vital Signs Period Temp Pulse Resp BP Sys/Rider Pulse Ox Last 24 Hr 97.6 F-98.4 F 73-91 18-20 113-145/65-79 94 PHYSICAL EXAM GENERAL: The patient is awake, alert, and fully oriented, in no acute distress. HEAD: Normal with no signs of trauma. EYES: PERRL, extraocular movements intact, sclerae anicteric, conjunctivae clear. ENT: Ears normal, nares patent, oropharynx clear without exudates, moist mucous membranes. NECK: Trachea midline, full range of motion, supple. LUNGS: Breath sounds equal, clear to auscultation bilaterally, no wheezes, no crackles, no accessory muscle use. HEART: Regular rate and rhythm, S1, S2 without murmur, rub or gallop. ABDOMEN: Obese, soft, nontender, nondistended, normoactive bowel sounds, no guarding, no rebound. EXTREMITIES: 2+ pulses, warm, well-perfused, no edema. NEUROLOGICAL: Cranial nerves II through XII grossly intact. Normal speech, gait not observed. PSYCH: Normal mood, normal affect. SKIN: Warm, dry, normal turgor, no rashes or lesions noted. LABS Laboratory Results - last 24 hr 08/13/17 08/13/17 08/14/17 17:21 20:32 06:00 WBC 3.2 L RBC 3.04 L Hgb 9.6 L Hct 28.8 L MCV 94.9 MCH 31.5 MCHC 33.2 RDW 18.2 H Plt Count 62 L MPV 8.4 Neutrophils % 54.4 Lymphocytes % 29.7 D Monocytes % 9.7 Eosinophils % 5.1 H Basophils % 1.1 POC Glucometer 173 110 08/14/17 12:07 WBC RBC Hgb Hct MCV MCH MCHC RDW Plt Count MPV Neutrophils % Lymphocytes % Monocytes % Eosinophils % Basophils % POC Glucometer 121 HOSPITAL COURSE: Date of Admission:08/06/17 Date of Discharge: 08/14/17 Minutes to complete discharge: 45 Discharge Summary Reason For Visit: ANEMIA THROMBOCYTOPENIA Current Active Problems Anemia due to blood loss, acute (Acute) Dieulafoy lesion of duodenum (Acute) Esophagitis (Acute) Gastritis (Acute) Anemia (Chronic) Angiodysplasia of colon (Chronic) Back pain (Chronic) CAD (coronary artery disease) (Chronic) COPD (chronic obstructive pulmonary disease) (Chronic) Chronic diastolic heart failure (Chronic) Chronic respiratory failure with hypoxia (Chronic) Cirrhosis of liver (Chronic) Diabetes (Chronic) Diverticulosis of colon (Chronic) HTN (hypertension) (Chronic) Hepatosplenomegaly (Chronic) Hypercholesterolemia (Chronic) Neck pain (Chronic) Thrombocytopenia (Chronic) Hospital Course: This is a 76 year old woman with a history of anemia, thrombocytopenia, HTN, COPD, type 2 DM, duodenal ulcer who presented to the ER on 08/05 complaining of back and neck pain. She had been seen on 08/01 in the ER for same complaints. Pain had been worsening since 07/29. She took Tylenol w/codeine without eating much and developed nausea and vomiting. She also reported dyspnea and dizziness with exertion. She was found to have hemoglobin 6.3, platelets 72. She was transfused 2 units PRBCs. Aspirin was discontinued. She was seen by Dr. Robin for Dr. Reinoso. EGD was done on 08/08 revealing distal esophagitis, antral gastritis, and a Dieulafoy lesion which was treated with epinephrine and clipping. She had several bloody bowel movements. She was transfused platelets as needed. She previously had a hematologic work-up and refused bone marrow biopsy. She was seen by Dr. Cloud who recommended transfusions as needed. Rectal bleeding stopped. She was transfused a total of 5 units PRBCs and 2 units platelets during the hospitalization. on 08/13, hemoglobin was 9.6 and platelets 67. She remained stable and is being discharged on 08/14. She is advised to avoid aspirin and NSAIDs. She will follow-up with Dr. Adorno within 1 week, and with Dr. Reinoso and Dr. Cloud within 2 weeks. She is advised to return to the ER if she notes any further bleeding, dizziness, weakness, shortness of breath. Condition: Improved - Instructions Diet, Activity, Other Instructions: Please follow a high fiber, soft, diabetic diet. Aspirin has been discontinued and Protonix has been increased to twice a day because of bleeding. Please schedule follow-up appointments with Dr. Adorno, Dr. Cloud, and Dr. Reinoso. Return to the ER if you develop bloody bowel movements, abdominal pain, weakness , shortness of breath, chest pain. Referrals: Cody Adorno MD [Primary Care Provider] - 1 Week Guerline Cloud MD [Staff Physician] - 2 Weeks Miko Reinoso MD [Staff Physician] - 2 Weeks Disposition: HOME - Home Medications Comprehensive Discharge Medication List: Ambulatory Orders Ezetimibe/Simvastatin [Vytorin 10-20 mg Tablet] 1 each PO HS 05/03/12 Ferrous Gluconate 325 mg PO DAILY 05/03/12 Glyburide 2.5 mg PO BID 05/03/12 Metoprolol Succinate [Toprol XL -] 50 mg PO HS 05/03/12 Pregabalin [Lyrica] 100 mg PO HS 05/03/12 Budesonide/Formeterol Fumarate [SYMBICORT 160/4.5mcg -] 2 inh PO DAILY 12/31/13 Metformin HCl [Glucophage -] 500 mg PO DAILY 12/31/13 Tiotropium [place] [Spiriva] 1 inh PO DAILY #1 01/02/14 Cholecalciferol (Vitamin D3) [Vitamin D3] 1,000 unit PO DAILY 06/18/14 Cyanocobalamin [Vitamin B12 -] 1,000 mcg PO DAILY 06/18/14 Ascorbate Calcium [Vitamin C] 500 mg PO DAILY 01/13/17 Losartan Potassium [Cozaar -] 50 mg PO DAILY tablet 01/18/17 Acetaminophen [Tylenol] 650 mg PO PRN PRN 08/01/17 Folic Acid 1 mg PO DAILY 08/01/17 Furosemide [Lasix] 20 mg PO DAILY 08/01/17 Lidocaine 5% Patch [Lidoderm -] 1 patch TP HS #10 patch 08/14/17 Pantoprazole Sodium [Protonix -] 40 mg PO BID #60 tab 08/14/17 This patient is new to me today: No Emergency Visit: Yes ED Registration Date: 08/06/17 Care time: The patient presented to the Emergency Department on the above date and was hospitalized for further evaluation of their emergent condition. Critical Care patient: No - Discharge Referral Referred to [facility] Med P.C.: No
[2017-08-14 14:25] VITALS: BP 119/57; PULSE 78; TEMP 98.5
--- NOTE | 2017-08-15 14:58 | PATH ---
Surgical Pathology Report Patient Name: REINIER MOORE Med. Rec. #: [id number] /Age/Gender: 1940 (Age: 76) / F Account: [id number] Location: [facility] MED/SURG Taken: 08/12/2017 Received: 08/12/2017 Reported: 08/15/2017 Physicians: Guerline Cloud M.D. Specimen(s) Received PERIPHERAL BLOOD 2 GREEN TOPS Clinical History Pancytopenia, r/o LPD, r/o MDS Final Diagnosis FLOW CYTOMETRY PERFORMED AND INTERPRETED AT [place], [place] ([id number]) SHOWED THE FOLLOWING: INTERPRETATION: NO ATYPICAL FLOW CYTOMETRIC FINDINGS SEEN. Phenotype: Lymphocytes include polyclonal B cells, NK cells and immunophenotypically normal CD4+ and CD8+ T-cells in normal proportions. No evidence of a clonal lymphoid expansion. Granulocytes are immunophenotypically mature. Cytomorphology: Smears from flow sample show no increase in myeloblasts or atypical lymphocytes. Electronically Signed Tuan Vieyra M.D. Gross Description Received are two green top tubes. Forwarded for further studies.
== END 2017-08-14 17:00 | disposition home or self-care (01) | DRG 378 ==
LOC: JER 18:29 → JERBED 08-06 00:26 → J7W 08-06 04:03
PROVIDERS: ADMIT Internal Medicine; ATTEND Internal Medicine
PROC: 30233N1 Transfusion of Nonautologous Red Blood Cells into Peripheral Vein, Percutaneous Approach (ICD-10-PCS; 2017-08-06)
PROC: 3E0G8GC Introduction of Other Therapeutic Substance into Upper GI, Via Natural or Artificial Opening Endoscopic (ICD-10-PCS; 2017-08-08)
PROC: 0W3P8ZZ Control Bleeding in Gastrointestinal Tract, Via Natural or Artificial Opening Endoscopic (ICD-10-PCS; principal; 2017-08-08 09:30)
PROC: 30233R1 Transfusion of Nonautologous Platelets into Peripheral Vein, Percutaneous Approach (ICD-10-PCS; 2017-08-09)
DX: K92.2 Gastrointestinal hemorrhage, unspecified (principal); D62 Acute posthemorrhagic anemia; I50.32 Chronic diastolic (congestive) heart failure; J96.11 Chronic respiratory failure with hypoxia; D61.818 Other pancytopenia; K31.82 Dieulafoy lesion (hemorrhagic) of stomach and duodenum; K57.30 Diverticulosis of large intestine without perforation or abscess without bleeding; D69.6 Thrombocytopenia, unspecified; K20.9 Esophagitis, unspecified; I25.10 Atherosclerotic heart disease of native coronary artery without angina pectoris; E11.9 Type 2 diabetes mellitus without complications; K29.60 Other gastritis without bleeding; K44.9 Diaphragmatic hernia without obstruction or gangrene; K59.00 Constipation, unspecified; I11.0 Hypertensive heart disease with heart failure; E78.5 Hyperlipidemia, unspecified; I35.0 Nonrheumatic aortic (valve) stenosis
CPT/HCPCS: 36415; 36430; 36511; 80048; 80053; 82105; 82172; 82247; 82465; 82728; 82947; 82977; 83010; 83540; 83550; 83735; 83883; 84100; 84450; 84460; 84478; 84484; 85025; 85027; 85044; 85384; 85610; 85730; 86850; 86900; 86901; 86922; 88300-TC; 90688; 93005; 93010; 99285-25; G0008; P9034; P9038; P9058

== ENCOUNTER 2019-03-10 11:25 | Observation (INO) | payer OTHER, MEDICARE ==
[2019-03-10 11:36] VITALS: BMI 30.5
--- NOTE | 2019-03-10 12:23 | PDOC ---
History of Present Illness - General Stated Complaint: DIFFICULTY BREATHING Time Seen by Provider: 03/10/19 11:40 History Source: Patient Exam Limitations: No Limitations - History of Present Illness Initial Comments: 03/10/19 12:11 78 yo f w hx of thrombocytopenia, anemia pud (dueilafoy lesion) s/p clipping and epinephrine last admision. htn copd dm cirrhosis, here w c/o back pain and weakness. pt states she has been taking pain medication percocet and lyrica in the past . states she is feeling generalized weakness. also feels sob. no wheezing. no f/c no dark black stools, no mod factors. has had massive transfusions in the past for severe anemia requiring 5 units PrBC in 2017. see gi vinay humphrey pcp dr mclean is pcp 03/10/19 12:48 Past History - Past Medical History Allergies/Adverse Reactions: Allergies Allergy/AdvReac Type Severity Reaction Status Date / Time No Known Drug Allergies Allergy Verified 08/05/17 18:39 Home Medications: Ambulatory Orders Ezetimibe/Simvastatin [Vytorin 10-20 mg Tablet] 1 each PO HS 05/03/12 Ferrous Gluconate 325 mg PO DAILY 05/03/12 Glyburide 2.5 mg PO BID 05/03/12 Metoprolol Succinate [Toprol XL -] 50 mg PO HS 05/03/12 Pregabalin [Lyrica] 100 mg PO HS 05/03/12 Budesonide/Formeterol Fumarate [SYMBICORT 160/4.5mcg -] 2 inh PO DAILY 12/31/13 metFORMIN HCL [Glucophage -] 500 mg PO DAILY 12/31/13 Tiotropium [place] [Spiriva] 1 inh PO DAILY #1 01/02/14 Cholecalciferol (Vitamin D3) [Vitamin D3] 1,000 unit PO DAILY 06/18/14 Cyanocobalamin [Vitamin B12 -] 1,000 mcg PO DAILY 06/18/14 Ascorbate Calcium [Vitamin C] 500 mg PO DAILY 01/13/17 Losartan Potassium [Cozaar -] 50 mg PO DAILY tablet 01/18/17 Acetaminophen [Tylenol] 650 mg PO PRN PRN 08/01/17 Folic Acid 1 mg PO DAILY 08/01/17 Furosemide [Lasix] 20 mg PO DAILY 08/01/17 Lidocaine 5% Patch [Lidoderm -] 1 patch TP HS #10 patch 08/14/17 Pantoprazole Sodium [Protonix -] 40 mg PO BID #60 tab 08/14/17 Anemia: Yes Asthma: No Cancer: No Cardiac Disorders: No CVA: No COPD: Yes CHF: No Dementia: No Diabetes: Yes (NIDDM) GI Disorders: Yes (diverticulosis,constipation) Disorders: No HTN: Yes Hypercholesterolemia: Yes Liver Disease: No Seizures: No - Surgical History Abdominal Surgery: Yes (repair umbilical hernia) Appendectomy: Yes Cardiac Surgery: No Cholecystectomy: Yes Lung Surgery: No Neurologic Surgery: No Orthopedic Surgery: Yes (ORIF, RIGHT ANKLE) - Immunization History Immunization Up to Date: Yes - Suicide/Smoking/Psychosocial Hx Smoking History: Never smoked Have you smoked in the past 12 months: No If you are a former smoker, when did you quit?: 14 yrs- 2002 'Breaking Loose' booklet given: 05/04/12 Hx Alcohol Use: No Drug/Substance Use Hx: No Substance Use Type: None Hx Substance Use Treatment: No Review of Systems - Review of Systems Able to Perform ROS?: Yes Constitutional: No: Chills, Diaphoresis, Fever HEENTM: No: Blurred Vision Respiratory: Yes: Shortness of Breath. No: Cough, Wheezing Cardiac (ROS): No: Chest Pain, Edema All Other Systems: Reviewed and Negative *Physical Exam - Vital Signs Last Vital Signs Temp Pulse Resp BP Pulse Ox 97.9 F 85 17 116/44 L 96 03/10/19 11:26 03/10/19 11:26 03/10/19 11:26 03/10/19 11:26 03/10/19 11:26 - Physical Exam Comments: 03/10/19 12:23 awake alert lungs clear bilaterally mild tachypnea. heart systolic murmur 2/6. regular rate and rythym. abd soft nt nd. ext wwp no edema. no calf tenderness. skin warm and dry. Heart Score/ECG Review #1 General ECG Interpretation: Sinus Rhythm, Normal Rate, Normal Intervals, No acute ischemic changes Compared to previous ECG there are: No significant change (RBBB TWI V1 - V3. left axis no change comparison 08/05/17) ED Treatment Course - LABORATORY CBC & Chemistry Diagram: 03/10/19 12:26 03/10/19 12:26 - RADIOLOGY Radiology Studies Ordered: Category Date Time Status CHEST PA & LAT [RAD] Stat Radiology 03/10/19 11:47 Ordered Medical Decision Making - Medical Decision Making 03/10/19 12:24 78 yo F h/o copd dm anemia, thrombocytopenia here with c/o back pain sob and generlized weaknesss. concernss for differential of anemia, infection such as uti, secondary gi bleed, or mi. sob could be from copd, chf pna. plan ekg cbc cmp coags. cxr ekg. trop. stool occult. *DC/Admit/Observation/Transfer Diagnosis at time of Disposition: Anemia, Thrombocytopenia - Discharge Dispostion Decision to Admit order: Yes - Referrals Referrals: Cody Adorno MD [Primary Care Provider] - - Patient Instructions - Post Discharge Activity
[2019-03-10 12:50] LABS: BASO % 0.9 % (0-2.0); EOS % 1.5 % (0-4.5); HEMATOCRIT 22.8 % (32.4-45.2); HEMOGLOBIN 7.1 GM/dL (10.7-15.3); LYMPH % 14.7 % (8-40); MCH 32.8 pg (25.7-33.7); MCHC 31.3 g/dl (32.0-36.0); MONO % 9.1 % (3.8-10.2); NEUT % 73.8 % (42.8-82.8); PLATELET COUNT 100 K/MM3 (134-434); RBC 2.17 M/mm3 (3.60-5.2); RDW 16.3 % (11.6-15.6); WHITE BLOOD COUNT 2.7 K/mm3 (4.0-10.0)
[2019-03-10 13:50] LABS: ALBUMIN 3.1 g/dl (3.4-5.0); ALK PHOS 44 U/L (45-117); ANION GAP 7 MMOL/L (8-16); BILIRUBIN,TOTAL 0.8 mg/dL (0.2-1); BLOOD UREA NITROGEN 20 mg/dL (7-18); CALCIUM 8.4 mg/dL (8.5-10.1); CHLORIDE 109 mmol/L (98-107); CO2 24 mmol/L (21-32); CREATININE 1.1 mg/dL (0.55-1.3); GLUCOSE,RANDOM 145 mg/dL (74-106); N-TERMINAL BNP 786.5 pg/ml (5-450); POTASSIUM 5.2 mmol/L (3.5-5.1); SGOT/AST 60 U/L (15-37); SGPT/ALT 18 U/L (13-61); SODIUM 140 mmol/L (136-145); TOT PROT 6.3 g/dl (6.4-8.2)
[2019-03-10 14:45] LABS: INR 1.15 (0.83-1.09); PROTHROMBIN TIME (PATIENT) 13.6 SEC (9.7-13.0)
[2019-03-10 14:49] LABS: ACTIVATED PTT 37.3 SECONDS (25.2-36.5)
--- NOTE | 2019-03-10 15:01 | EKG ---
Test Reason : Blood Pressure : / mmHG Vent. Rate : 087 BPM Atrial Rate : 087 BPM P-R Int : 124 ms QRS Dur : 138 ms QT Int : 406 ms P-R-T Axes : 057 -56 045 degrees QTc Int : 488 ms NORMAL SINUS RHYTHM POSSIBLE LEFT ATRIAL ENLARGEMENT RIGHT BUNDLE BRANCH BLOCK LEFT ANTERIOR FASCICULAR BLOCK BIFASCICULAR BLOCK ABNORMAL ECG WHEN COMPARED WITH ECG OF 05-AUG-2017 20:22, NO SIGNIFICANT CHANGE WAS FOUND Confirmed by BETSEY WARNER MD ([id number]) on 03/10/2019 3:01:29 PM Referred By: Confirmed By:BETSEY WARNER MD
[2019-03-10 17:29] LABS: ANISOCYTOSIS 2+; MACROCYTOSIS 1+; PLATELET ESTIMATE DECREASED; TEAR DROP CELLS 1+
[2019-03-10] MEDS ORDERED: ACETAMINOPHEN 325 MG TABLET (FP) PO PRN (20:52)
[2019-03-10] MEDS ORDERED: oxyCODONE HCL 5 MG TABLET PO PRN (20:57)
--- NOTE | 2019-03-10 21:05 | HP ---
Admitting History and Physical - Primary Care Physician PCP: Cody Adorno - Admission Chief Complaint: Anemia History of Present Illness: Patient is a 78 y/o female with past medical history of Thrombocytopenia, Anemia , PUD (dueilafoy lesion s/p clipping and epinephrine), HTN, DM, Cirrhosis. Patient presented to ER with complaints of lower back pain and weakness that started 1 week ago. She complains of feeling SOB. In ER patient noted with Hg 7.1. History Source: Patient Limitations to Obtaining History: No Limitations - Past Medical History CHICK[employer] CLE[employer]ER: Yes: Vertigo Cardiovascular: Yes: CAD (had cardiac cath with a single completely occluded artery ( per patient)), HTN, Hyperlipdemia, [place], Other (left carotid endarterectomy, AAA 4.4cm) 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), Cholecystitis (had GB surgery), Other (HSM) Heme/Onc: Yes: Anemia, Thrombocytopenia Musculoskeletal: Yes: Osteoarthritis Endocrine: Yes: Diabetes Mellitus - Past Surgical History Past Surgical History: Yes: Appendectomy (during cholecystectomy ?), Carotid Endarterectomy (left), Cataract Removal, Cholecystectomy, Colonoscopy, Hernia Repair (Umbilical hernia repair), Tonsillectomy, Upper Endoscopy - Smoking History Smoking history: Former smoker Have you smoked in the past 12 months: No If you are a former smoker, when did you quit?: 14 yrs- 2002 - Alcohol/Substance Use Hx Alcohol Use: No History of Substance Use: reports: None - Social History Usual Living Arrangement: Yes: Alone ADL: Independent 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 History of Recent Travel: No Home Medications - Allergies Allergies/Adverse Reactions: Allergies Allergy/AdvReac Type Severity Reaction Status Date / Time No Known Drug Allergies Allergy Verified 08/05/17 18:39 - Home Medications Home Medications: Ambulatory Orders Ezetimibe/Simvastatin [Vytorin 10-20 mg Tablet] 1 each PO HS 05/03/12 Ferrous Gluconate 325 mg PO DAILY 05/03/12 Glyburide 2.5 mg PO BID 05/03/12 Metoprolol Succinate [Toprol XL -] 25 mg PO HS 05/03/12 Pregabalin [Lyrica] 100 mg PO HS 05/03/12 Budesonide/Formeterol Fumarate [SYMBICORT 160/4.5mcg -] 2 inh PO BID 12/31/13 metFORMIN HCL [Glucophage -] 500 mg PO DAILY 12/31/13 Tiotropium [place] [Spiriva] 1 inh PO DAILY #1 01/02/14 Cholecalciferol (Vitamin D3) [Vitamin D3] 1,000 unit PO DAILY 06/18/14 Cyanocobalamin [Vitamin B12 -] 1,000 mcg PO DAILY 06/18/14 Ascorbate Calcium [Vitamin C] 500 mg PO DAILY 01/13/17 Losartan Potassium [Cozaar -] 50 mg PO DAILY tablet 01/18/17 Acetaminophen [Tylenol] 650 mg PO PRN PRN 08/01/17 Folic Acid 1 mg PO DAILY 08/01/17 Lidocaine 5% Patch [Lidoderm -] 1 patch TP HS #10 patch 08/14/17 Pantoprazole Sodium [Protonix -] 40 mg PO BID #60 tab 08/14/17 Family Disease History - Family Disease History Family Disease History: [place]: Father (asbestos related lung cancer), Other: Mother ( don her 80s on inanition) Review of Systems - Review of Systems Constitutional: reports: Weakness Eyes: reports: No Symptoms HENT: reports: No Symptoms Neck: reports: No Symptoms Cardiovascular: reports: No Symptoms Respiratory: reports: No Symptoms Gastrointestinal: reports: Nausea Genitourinary: reports: No Symptoms Breasts: reports: No Symptoms Reported Musculoskeletal: reports: Back Pain, Muscle Weakness Integumentary: reports: No Symptoms Neurological: reports: No Symptoms Endocrine: reports: No Symptoms Hematology/Lymphatic: reports: No Symptoms Psychiatric: reports: No Symptoms Physical Examination Vital Signs: Vital Signs Temperature 98 F 03/10/19 19:30 Pulse Rate 80 03/10/19 19:30 Respiratory Rate 18 03/10/19 19:30 Blood Pressure 98/46 L 03/10/19 19:30 O2 Sat by Pulse Oximetry (%) 95 03/10/19 14:31 Constitutional: Yes: Well Nourished, No Distress, Calm Eyes: Yes: Conjunctiva Clear HENT: Yes: Atraumatic Neck: Yes: Supple Cardiovascular: Yes: Regular Rate and Rhythm Respiratory: Yes: Regular, CTA Bilaterally Gastrointestinal: Yes: Normal Bowel Sounds, Soft Musculoskeletal: Yes: Muscle Weakness Extremities: Yes: WNL Edema: No Neurological: Yes: Alert, Oriented Psychiatric: Yes: Alert, Oriented Labs: CBC, BMP 03/10/19 12:26 03/10/19 12:26 Imaging - Results Chest X-ray: Report Reviewed EKG: Report Reviewed Problem List - Problems (1) Anemia Assessment/Plan: -Hg 7.1 -2U PRBC ordered for transfusion -monitor Hg daily -transfuse if Hg <7.0 to avoid fluid overload -Ferrous Sulfate -GI consult -anemia profile, B12 Code(s): D64.9 - ANEMIA, UNSPECIFIED Qualifiers: (2) Thrombocytopenia Assessment/Plan: -PLT 100 -Heme consult Code(s): D69.6 - THROMBOCYTOPENIA, UNSPECIFIED (3) Gastritis Assessment/Plan: -Protonix 40mg BID Code(s): K29.70 - GASTRITIS, UNSPECIFIED, WITHOUT BLEEDING (4) Back pain Assessment/Plan: -pain management -PT -xray ordered Code(s): M54.9 - DORSALGIA, UNSPECIFIED (5) CAD (coronary artery disease) Assessment/Plan: -continue Zetia Code(s): I25.10 - ATHSCL HEART DISEASE OF [place] CORONARY ARTERY W/O ANG PCTRS Qualifiers: Coronary Disease-Associated Artery/Lesion type: [place] artery [place] vs. transplanted heart: [place] heart Associated angina: without angina Qualified Code(s): I25.10 - Atherosclerotic heart disease of [place] coronary artery without angina pectoris (6) COPD (chronic obstructive pulmonary disease) Assessment/Plan: -Spiriva + SYmbicort -O2 via NC -keep SpO2 >90% -CXR reviewed Code(s): J44.9 - CHRONIC OBSTRUCTIVE PULMONARY DISEASE, UNSPECIFIED Qualifiers: Chronic bronchitis type: unspecified (7) Cirrhosis of liver Assessment/Plan: -AST 60, Alk Phos 40 -monitor LFTs -GI consult Code(s): K74.60 - UNSPECIFIED CIRRHOSIS OF LIVER (8) Diabetes Assessment/Plan: -BGM ACHS -Metformin + Glyburide -ISS -HgA1c Code(s): E11.9 - TYPE 2 DIABETES MELLITUS WITHOUT COMPLICATIONS Qualifiers: Diabetes mellitus type: type 2 (9) HTN (hypertension) Assessment/Plan: -Cozaar and Metoprolol -Low Nad diet Code(s): I10 - ESSENTIAL (PRIMARY) HYPERTENSION Qualifiers: Hypertension type: essential hypertension Qualified Code(s): I10 - Essential (primary) hypertension Assessment/Plan see problem list SCDs PT
[2019-03-10] MEDS: PANTOPRAZOLE 40 MG TABLET (FP) PO SCH (22:11)
[2019-03-10] MEDS: PREGABALIN 100 MG CAPSULE PO SCH (22:11)
[2019-03-10] MEDS: BUDESONIDE/FORMETEROL FUMARATE 160/4.5 mcg INHALER IH SCH (22:11)
[2019-03-10] MEDS: metoPROLOL SUCCINATE 25 MG TAB.SR.24H (FP) PO SCH ×2 (22:11→23:07)
[2019-03-11] MEDS ORDERED: PT OWN MED DRAWER 7, Y5N ONE (05:55)
[2019-03-11] MEDS: glyBURIDE 2.5 MG TABLET (FP) PO SCH (06:23)
[2019-03-11] MEDS: metFORMIN HCL 500 MG TABLET (FP) PO SCH (06:23)
[2019-03-11 08:04] LABS: BASO % 0.9 % (0-2.0); HEMOGLOBIN 8.3 GM/dL (10.7-15.3); LYMPH % 18.5 % (8-40); MCH 32.2 pg (25.7-33.7); MCHC 31.9 g/dl (32.0-36.0); MEAN PLT VOLUME 7.7 fl (7.5-11.1); MONO % 9.4 % (3.8-10.2); NEUT % 68.2 % (42.8-82.8); PLATELET COUNT 50 K/MM3 (134-434); RBC 2.58 M/mm3 (3.60-5.2); RDW 17.7 % (11.6-15.6); WHITE BLOOD COUNT 2.5 K/mm3 (4.0-10.0)
[2019-03-11] MEDS: FERROUS SO4 325 MG TABLET (FP) PO SCH (08:29)
[2019-03-11 08:51] LABS: ALK PHOS 47 U/L (45-117); ANION GAP 7 MMOL/L (8-16); BILIRUBIN,TOTAL 1.3 mg/dL (0.2-1); BLOOD UREA NITROGEN 17 mg/dL (7-18); CALCIUM 8.3 mg/dL (8.5-10.1); CHLORIDE 111 mmol/L (98-107); CO2 25 mmol/L (21-32); GLUCOSE,RANDOM 151 mg/dL (74-106); MAGNESIUM 2.1 mg/dL (1.8-2.4); PHOSPHOROUS 4.5 mg/dL (2.5-4.9); POTASSIUM 4.4 mmol/L (3.5-5.1); SGOT/AST 14 U/L (15-37); SGPT/ALT 13 U/L (13-61); SODIUM 143 mmol/L (136-145); TOT PROT 5.9 g/dl (6.4-8.2)
--- NOTE | 2019-03-11 09:45 | PN ---
Progress Note, Physician Chief Complaint: Anemia Lower Back Pain History of Present Illness: Previous notes and events reviewed awake and alert NAD Hg 8.3 after 2U PRBC transfusion, Plt drop to 50 c/o lower back pain - Current Medication List Current Medications: Active Medications Acetaminophen (Tylenol -) 650 mg PO Q6H PRN PRN Reason: PAIN LEVEL 1-5 Ascorbic Acid (Vitamin C -) 500 mg PO DAILY [facility] Budesonide/Formoterol Fumarate (Symbicort 160/4.5mcg -) 2 puff IH BID [facility] Last Admin: 03/10/19 22:11 Dose: 2 puff Cholecalciferol (Vitamin D3 -) 1,000 unit PO DAILY [facility] Cyanocobalamin (Vitamin B12 -) 100 mcg PO DAILY [facility] Ezetimibe (Zetia -) 10 mg PO DAILY [facility] Ferrous Sulfate (Feosol -) 325 mg PO DAILY@0800 [facility] Last Admin: 03/11/19 08:29 Dose: 325 mg Folic Acid (Folic Acid -) 1 mg PO DAILY [facility] Glyburide (Diabeta -) 2.5 mg PO DAILY@0700 [facility] Last Admin: 03/11/19 06:23 Dose: 2.5 mg Lidocaine (Lidoderm Patch -) 1 patch TP DAILY [facility] Losartan Potassium (Cozaar -) 50 mg PO DAILY [facility] Metformin HCl (Glucophage -) 500 mg PO DAILY@0700 [facility] Last Admin: 03/11/19 06:23 Dose: 500 mg Metoprolol Succinate (Toprol Xl -) 25 mg PO [facility] Last Admin: 03/10/19 23:07 Dose: Not Given Miscellaneous (Lidoderm Patch Removal) 1 each MC DAILY@2200 [facility] Oxycodone/Acetaminophen (Percocet 5/325 -) 1 combo PO Q8H PRN PRN Reason: PAIN LEVEL 6-10 Last Admin: 03/10/19 23:47 Dose: 1 combo Pantoprazole Sodium (Protonix -) 40 mg PO BID [facility] Last Admin: 03/10/19 22:11 Dose: 40 mg Pregabalin (Lyrica -) 100 mg PO HS [facility] Last Admin: 03/10/19 22:11 Dose: 100 mg Tiotropium [place] (Spiriva Respimat) 2 puff IH DAILY [facility] - Objective Vital Signs: Vital Signs Temperature 98.0 F 03/11/19 06:33 Pulse Rate 85 03/11/19 06:33 Respiratory Rate 18 03/11/19 06:33 Blood Pressure 106/56 L 03/11/19 06:33 O2 Sat by Pulse Oximetry (%) 95 03/10/19 14:31 Constitutional: Yes: No Distress, Calm Eyes: Yes: Conjunctiva Clear HENT: Yes: Atraumatic Cardiovascular: Yes: Regular Rate and Rhythm Respiratory: Yes: Regular, CTA Bilaterally Gastrointestinal: Yes: Normal Bowel Sounds, Soft Musculoskeletal: Yes: Back Pain Extremities: Yes: WNL Edema: No Neurological: Yes: Alert, Oriented Psychiatric: Yes: Alert, Oriented Labs: CBC, BMP 03/11/19 06:30 03/11/19 06:30 INR, PTT INR 1.15 (0.83-1.09) H 03/10/19 12:26 Problem List - Problems (1) Anemia Assessment/Plan: -Hg 8.3 s/p PRBC transfusion -monitor Hg daily -transfuse if Hg <7.0 to avoid fluid overload -Ferrous Sulfate -GI consult -anemia profile, B12 Code(s): D64.9 - ANEMIA, UNSPECIFIED Qualifiers: (2) Thrombocytopenia Assessment/Plan: -PLT 50 -Heme consult Code(s): D69.6 - THROMBOCYTOPENIA, UNSPECIFIED (3) Gastritis Assessment/Plan: -Protonix 40mg BID Code(s): K29.70 - GASTRITIS, UNSPECIFIED, WITHOUT BLEEDING (4) Back pain Assessment/Plan: -pain management -PT -xray ordered Code(s): M54.9 - DORSALGIA, UNSPECIFIED (5) CAD (coronary artery disease) Assessment/Plan: -continue Zetia Code(s): I25.10 - ATHSCL HEART DISEASE OF [place] CORONARY ARTERY W/O ANG PCTRS Qualifiers: Coronary Disease-Associated Artery/Lesion type: [place] artery [place] vs. transplanted heart: [place] heart Associated angina: without angina Qualified Code(s): I25.10 - Atherosclerotic heart disease of [place] coronary artery without angina pectoris (6) COPD (chronic obstructive pulmonary disease) Assessment/Plan: -Spiriva + SYmbicort -O2 via NC -keep SpO2 >90% -CXR reviewed Code(s): J44.9 - CHRONIC OBSTRUCTIVE PULMONARY DISEASE, UNSPECIFIED Qualifiers: Chronic bronchitis type: unspecified (7) Cirrhosis of liver Assessment/Plan: -AST 14 -monitor LFTs -GI consult Code(s): K74.60 - UNSPECIFIED CIRRHOSIS OF LIVER (8) Diabetes Assessment/Plan: -BGM ACHS -Metformin + Glyburide -ISS -HgA1c 4.7 Code(s): E11.9 - TYPE 2 DIABETES MELLITUS WITHOUT COMPLICATIONS Qualifiers: Diabetes mellitus type: type 2 (9) HTN (hypertension) Assessment/Plan: -Cozaar and Metoprolol -Low Nad diet Code(s): I10 - ESSENTIAL (PRIMARY) HYPERTENSION Qualifiers: Hypertension type: essential hypertension Qualified Code(s): I10 - Essential (primary) hypertension Assessment/Plan see problem list SCDs PT
[2019-03-11] MEDS: LIDOCAINE 5% TOPICAL PATCH TP SCH (11:13)
[2019-03-11] MEDS: PANTOPRAZOLE 40 MG TABLET (FP) PO SCH ×2 (11:13→22:18)
[2019-03-11] MEDS: BUDESONIDE/FORMETEROL FUMARATE 160/4.5 mcg INHALER IH SCH ×2 (11:13→22:18)
[2019-03-11] MEDS: TIOTROPIUM BROMIDE 2.5 MCG (SPIRIVA) RESPIMAT INHALER IH SCH (11:13)
[2019-03-11] MEDS: FOLIC ACID 1 MG TABLET (FP) PO SCH (11:13)
[2019-03-11] MEDS: LOSARTAN POTASSIUM 50 MG TABLET (FP) PO SCH (11:13)
[2019-03-11] MEDS: CYANOCOBALAMIN (VITAMIN B-12) 100 MCG TABLET PO SCH (11:14)
[2019-03-11] MEDS: CHOLECALCIFEROL (VITAMIN D3) 1,000 UNIT TABLET (FP) PO SCH (11:14)
[2019-03-11] MEDS: ASCORBIC ACID 500 MG TABLET (FP) PO SCH (11:14)
[2019-03-11] MEDS: EZETIMIBE 10 MG TABLET (FP) PO SCH (11:14)
--- NOTE | 2019-03-11 12:19 | CONSULT ---
Consult Consult Specialty:: Hematology Referred by:: Medicine Reason for Consultation:: Anemia and thrombocytopenia - History of Present Illness Chief Complaint: Patient with known history of prior thrombocytopenia (3-4 years ago), presented with several days non-remitting lower back pain, found to have Hb circa 7, milf thrombocytopenia. Transfused 2 units, with lower in platelet count. History of Present Illness: Has been seen by hematology previously, when noted to have macrocytic anemia and thrombocytopenia. Likely MDS, but refused bone marrow biopsy. Conservative management then recommended. No subsequent interventions, and has generally been doing well, without bleeding manifestations, and without symptoms attributable to anemia - is active for her age. Denies change in color of stools. 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), Cholecystitis (had GB surgery), Other (HSM) Musculoskeletal: Yes: Osteoarthritis Endocrine: Yes: Diabetes Mellitus - Past Surgical History Past Surgical History: Yes: Appendectomy (during cholecystectomy ?), Carotid Endarterectomy (left), Cataract Removal, Cholecystectomy, Colonoscopy, Hernia Repair (Umbilical hernia repair), Tonsillectomy, Upper Endoscopy - Alcohol/Substance Use Hx Alcohol Use: No History of Substance Use: reports: None - Smoking History Smoking history: Former smoker Have you smoked in the past 12 months: No If you are a former smoker, when did you quit?: 14 yrs- 2002 - Social History Usual Living Arrangement: With Spouse (lives with who is disabled (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), in apartment with 20 steps total to enter (3 into building, 4 to lobby, then 7x2 to apartment), previously Independent in ADLs, ambulated with SC) ADL: Independent 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 History of Recent Travel: No Home Medications - Allergies Allergies/Adverse Reactions: Allergies Allergy/AdvReac Type Severity Reaction Status Date / Time No Known Drug Allergies Allergy Verified 08/05/17 18:39 - Home Medications Home Medications: Ambulatory Orders Ezetimibe/Simvastatin [Vytorin 10-20 mg Tablet] 1 each PO HS 05/03/12 Ferrous Gluconate 325 mg PO DAILY 05/03/12 Glyburide 2.5 mg PO BID 05/03/12 Metoprolol Succinate [Toprol XL -] 25 mg PO HS 05/03/12 Pregabalin [Lyrica] 100 mg PO HS 05/03/12 Budesonide/Formeterol Fumarate [SYMBICORT 160/4.5mcg -] 2 inh PO BID 12/31/13 metFORMIN HCL [Glucophage -] 500 mg PO DAILY 12/31/13 Tiotropium [place] [Spiriva] 1 inh PO DAILY #1 01/02/14 Cholecalciferol (Vitamin D3) [Vitamin D3] 1,000 unit PO DAILY 06/18/14 Cyanocobalamin [Vitamin B12 -] 1,000 mcg PO DAILY 06/18/14 Ascorbate Calcium [Vitamin C] 500 mg PO DAILY 01/13/17 Losartan Potassium [Cozaar -] 50 mg PO DAILY tablet 01/18/17 Acetaminophen [Tylenol] 650 mg PO PRN PRN 08/01/17 Folic Acid 1 mg PO DAILY 08/01/17 Lidocaine 5% Patch [Lidoderm -] 1 patch TP HS #10 patch 08/14/17 Pantoprazole Sodium [Protonix -] 40 mg PO BID #60 tab 08/14/17 Family Disease History - Family Disease History Family Disease History: [place]: Father (asbestos related lung cancer), Other: Mother ( don her 80s on inanition) Review of Systems - Review of Systems Constitutional: reports: No Symptoms. denies: Loss of Appetite, Unintentional Wgt. Loss Eyes: reports: No Symptoms HENT: reports: No Symptoms Neck: denies: Decreased ROM, Swollen Glands Respiratory: denies: Cough, Hemoptysis, SOB Gastrointestinal: denies: Abdominal Pain, Constipation, Diarrhea, Rectal Bleeding Genitourinary: denies: Vaginal Bleeding Breasts: reports: No Symptoms Reported Musculoskeletal: reports: Back Pain Integumentary: reports: No Symptoms. denies: Bruising Neurological: reports: No Symptoms Endocrine: reports: No Symptoms Hematology/Lymphatic: denies: Easily Bruised, Excessive Bleeding Psychiatric: reports: No Symptoms Physical Exam Vital Signs: Vital Signs Temperature 98.0 F 03/11/19 06:33 Pulse Rate 85 03/11/19 06:33 Respiratory Rate 18 03/11/19 06:33 Blood Pressure 106/56 L 03/11/19 06:33 O2 Sat by Pulse Oximetry (%) 95 03/10/19 14:31 Constitutional: Yes: Well Nourished, No Distress, Calm Eyes: Yes: Conjunctiva Clear. No: Sclera Icterus HENT: Yes: Normocephalic Neck: Yes: Supple, Trachea Midline. No: Decreased ROM, Lymphadenopathy Cardiovascular: Yes: Regular Rate and Rhythm, Murmur, S1, S2 (Guardado-systolic) Respiratory: Yes: Regular, CTA Bilaterally Gastrointestinal: Yes: Normal Bowel Sounds, Soft, Abdomen, Obese. No: Palpable Mass Musculoskeletal: No: Joint Stiffness, Joint Swelling Edema: No Neurological: Yes: Alert, Oriented ...Motor Strength: WNL Psychiatric: Yes: Alert, Oriented Labs: CBC, BMP 03/11/19 06:30 03/11/19 06:30 Assessment/Plan Elderly female with chronic mild thrombocytopenia and macrocytic anemia (since 2017), likely attributable to MDS, well compensated, and stable. Refusing bone marrow biopsy. Established splenomegaly - ?secondary chronic cirrhosis - contributing to thrombocytopenia. No platelet intervention warranted while platelet count >10 and not bleeding. Reticulocyte count higher than expected raising concern of additional etiology to her anemia - history of bleeding PUD noted - would screen stool for occult blood. Iron panel pending. Not a candidate for chemotherapy for MDS, but may benefit from Revlimid (if 5q-) , or from an GUILLE, if endogenous epo level low. Should follow up with hematology after discharge
--- NOTE | 2019-03-11 20:12 | PN ---
Progress Note (short form) - Note Progress Note: GI CONSULT DICTATED NPO MIDNIGHT FOR EGD TUESDAY KEEP PLATELET COUNT = OR GREATER THAN 50 K ; TRANSFUSE TO HG BETWEEN 9-10 PPI SERIAL CBC
--- NOTE | 2019-03-11 20:51 | CONS ---
DATE OF CONSULTATION: DATE OF DICTATION: 03/11/2019 Patient is a 78-year-old female with past medical history of thrombocytopenia, anemia, history of angiodysplasia of the right colon as well as peptic ulcer disease with a Dieulafoy lesion in the past that was clipped with epinephrine. This was in [address] Reinoso, also with a history of hypertension, diabetes, and liver disease. She states she was taking Advil and Aleve for back pain that started a couple of weeks ago and started to complain of shortness of breath and fatigue. She presented to the ER with these complaints and was noted to have a hemoglobin of 7.1. She denies any abdominal pain, nausea, vomiting, hematemesis, melena or hematochezia, or syncope. PAST MEDICAL AND SURGICAL HISTORY: As listed in the HPI with the addition of a hyperlipidemia, [place], and a carotid endarterectomy, also with COPD and a history of diverticulosis, cirrhosis, cholecystectomy in the past, and also an umbilical hernia repair. ALLERGIES: No known drug allergies. SOCIAL HISTORY: Smoked in the past, quit about 15 years ago. Does not drink or use drugs. Lives alone. FAMILY HISTORY: No history of GI or gynecological malignancy. REVIEW OF SYSTEMS: As per the HPI. HOME MEDICATIONS: Include Vytorin, ferrous gluconate, glyburide, metoprolol, Lyrica, budesonide, metformin, Spiriva, vitamin D, vitamin B12, vitamin C, Cozaar, Tylenol, folic acid, lidocaine, pantoprazole. REVIEW OF SYSTEMS: As per the HPI. PHYSICAL EXAMINATION: Vital Signs: Temperature 98, pulse 85, blood pressure 104/52, respiratory rate 12, 96% is her oxygen saturation on room air. General: No acute distress. Pleasant female. HEENT: Anicteric sclerae. Cardiovascular: S1, S2. Regular rate and rhythm. Lungs: Bilaterally clear to auscultation. Abdomen: Soft, nontender. Extremities: No edema. LABORATORY: White blood cell count 2.5, hemoglobin 8.3, hematocrit 26, MCV 101, platelet count 50. INR 1.15, sodium 143, potassium 4.4, BUN 17, creatinine 1. Glucose of 151, calcium 8.3, total bilirubin 1.3, AST 14, ALT 13, alkaline phosphatase 47. She had a lumbar spine x-ray, which revealed degenerative changes and persistent dilation of the lower abdominal aorta, which has been stable. Chest x-ray: Some atelectasis at the base. IMPRESSION: Symptomatic anemia in the setting of nonsteroidal anti-inflammatory drug use and a history of previous peptic ulcer disease and angiodysplasia. Upper gastrointestinal source of her anemia cannot be excluded at this time. She is hemodynamically stable. No sign of an upper gastrointestinal bleed. RECOMMENDATIONS: Clear liquid diet. Transfuse to a hemoglobin between 9 and 10. Serial CBCs q.12 hours. Start her on Protonix 40 mg IV daily. N.P.O. at midnight for diagnostic upper endoscopy on Tuesday. Goal hemoglobin is 9. Goal platelet count of 50 thousand or better. Risks and benefits of the endoscopy explained in detail including but not limited to perforation, bleeding, infection, anesthesia, risk of a tear in the bowel. DO LAMIN ELMORE/[id number]
[2019-03-11] MEDS: LIDOCAINE PATCH REMOVAL MC SCH (22:18)
[2019-03-11] MEDS: metoPROLOL SUCCINATE 25 MG TAB.SR.24H (FP) PO SCH (22:18)
[2019-03-11] MEDS: PREGABALIN 100 MG CAPSULE PO SCH (22:18)
[2019-03-12] MEDS ORDERED: PT OWN MED DRAWER 7, Y5N ONE (05:50)
[2019-03-12 06:09] LABS: SERUM IRON SATURATION 15 % (15-55); TOTAL IRON BINDING CAPACITY 401 ug/dL (250-450); UIBC 342 ug/dL (118-369)
[2019-03-12] MEDS: glyBURIDE 2.5 MG TABLET (FP) PO SCH (06:16)
[2019-03-12] MEDS: metFORMIN HCL 500 MG TABLET (FP) PO SCH (06:16)
[2019-03-12 07:28] LABS: HEMATOCRIT 25.7 % (32.4-45.2); HEMOGLOBIN 8.2 GM/dL (10.7-15.3); MCH 32.3 pg (25.7-33.7); MEAN CELL VOLUME 100.9 fl (80-96); MEAN PLT VOLUME 8.2 fl (7.5-11.1); PLATELET COUNT 53 K/MM3 (134-434); RBC 2.55 M/mm3 (3.60-5.2); RDW 17.4 % (11.6-15.6); WHITE BLOOD COUNT 2.8 K/mm3 (4.0-10.0)
[2019-03-12 07:32] LABS: ALK PHOS 49 U/L (45-117); ANION GAP 6 MMOL/L (8-16); BILIRUBIN,TOTAL 0.6 mg/dL (0.2-1); BLOOD UREA NITROGEN 17 mg/dL (7-18); CALCIUM 8.1 mg/dL (8.5-10.1); CHLORIDE 110 mmol/L (98-107); CO2 27 mmol/L (21-32); CREATININE 1.1 mg/dL (0.55-1.3); GLUCOSE,RANDOM 150 mg/dL (74-106); POTASSIUM 4.3 mmol/L (3.5-5.1); SGOT/AST 13 U/L (15-37); SGPT/ALT 11 U/L (13-61); SODIUM 143 mmol/L (136-145); TOT PROT 5.8 g/dl (6.4-8.2)
[2019-03-12] MEDS: LOSARTAN POTASSIUM 50 MG TABLET (FP) PO SCH (10:20)
[2019-03-12] MEDS: FERROUS SO4 325 MG TABLET (FP) PO SCH (10:20)
[2019-03-12] MEDS: FOLIC ACID 1 MG TABLET (FP) PO SCH (10:20)
[2019-03-12] MEDS: LIDOCAINE 5% TOPICAL PATCH TP SCH (10:20)
[2019-03-12] MEDS: PANTOPRAZOLE 40 MG TABLET (FP) PO SCH ×2 (10:21→21:18)
[2019-03-12] MEDS: CHOLECALCIFEROL (VITAMIN D3) 1,000 UNIT TABLET (FP) PO SCH (10:21)
[2019-03-12] MEDS: ASCORBIC ACID 500 MG TABLET (FP) PO SCH (10:21)
[2019-03-12] MEDS: CYANOCOBALAMIN (VITAMIN B-12) 100 MCG TABLET PO SCH (10:21)
[2019-03-12] MEDS: EZETIMIBE 10 MG TABLET (FP) PO SCH (10:21)
[2019-03-12] MEDS: BUDESONIDE/FORMETEROL FUMARATE 160/4.5 mcg INHALER IH SCH ×2 (10:57→21:18)
[2019-03-12] MEDS: TIOTROPIUM BROMIDE 2.5 MCG (SPIRIVA) RESPIMAT INHALER IH SCH (10:57)
--- NOTE | 2019-03-12 14:43 | PN ---
Progress Note, Physician Chief Complaint: patient seen nad examiend just got back form EGD - Current Medication List Current Medications: Active Medications Acetaminophen (Tylenol -) 650 mg PO Q6H PRN PRN Reason: PAIN LEVEL 1-5 Ascorbic Acid (Vitamin C -) 500 mg PO DAILY [facility] Last Admin: 03/12/19 10:21 Dose: Not Given Budesonide/Formoterol Fumarate (Symbicort 160/4.5mcg -) 2 puff IH BID [facility] Last Admin: 03/12/19 10:57 Dose: 2 puff Cholecalciferol (Vitamin D3 -) 1,000 unit PO DAILY [facility] Last Admin: 03/12/19 10:21 Dose: Not Given Cyanocobalamin (Vitamin B12 -) 100 mcg PO DAILY [facility] Last Admin: 03/12/19 10:21 Dose: Not Given Ezetimibe (Zetia -) 10 mg PO DAILY [facility] Last Admin: 03/12/19 10:21 Dose: Not Given Ferrous Sulfate (Feosol -) 325 mg PO DAILY@0800 [facility] Last Admin: 03/12/19 10:20 Dose: Not Given Folic Acid (Folic Acid -) 1 mg PO DAILY [facility] Last Admin: 03/12/19 10:20 Dose: Not Given Glyburide (Diabeta -) 2.5 mg PO DAILY@0700 [facility] Last Admin: 03/12/19 06:16 Dose: Not Given Lidocaine (Lidoderm Patch -) 1 patch TP DAILY [facility] Last Admin: 03/12/19 10:20 Dose: Not Given Losartan Potassium (Cozaar -) 50 mg PO DAILY [facility] Last Admin: 03/12/19 10:20 Dose: Not Given Metformin HCl (Glucophage -) 500 mg PO DAILY@0700 [facility] Last Admin: 03/12/19 06:16 Dose: Not Given Metoprolol Succinate (Toprol Xl -) 25 mg PO HS [facility] Last Admin: 03/11/19 22:18 Dose: 25 mg Miscellaneous (Lidoderm Patch Removal) 1 each MC DAILY@2200 [facility] Last Admin: 03/11/19 22:18 Dose: Not Given Oxycodone/Acetaminophen (Percocet 5/325 -) 1 combo PO Q8H PRN PRN Reason: PAIN LEVEL 6-10 Last Admin: 03/11/19 18:10 Dose: 1 combo Pantoprazole Sodium (Protonix -) 40 mg PO BID [facility] Last Admin: 03/12/19 10:21 Dose: Not Given Pregabalin (Lyrica -) 100 mg PO HS [facility] Last Admin: 03/11/19 22:18 Dose: 100 mg Tiotropium [place] (Spiriva Respimat) 2 puff IH DAILY [facility] Last Admin: 03/12/19 10:57 Dose: 2 puff - Objective Vital Signs: Vital Signs Temperature 98.6 F 03/12/19 14:28 Pulse Rate 80 03/12/19 14:28 Respiratory Rate 22 H 03/12/19 14:28 Blood Pressure 124/67 03/12/19 14:28 O2 Sat by Pulse Oximetry (%) 90 L 03/12/19 14:28 Constitutional: Yes: Calm Cardiovascular: Yes: Regular Rate and Rhythm, S1, S2 Respiratory: Yes: CTA Bilaterally Gastrointestinal: Yes: Normal Bowel Sounds, Soft Edema: No Neurological: Yes: Alert, Oriented Labs: CBC, BMP 03/12/19 06:40 03/12/19 06:40 INR, PTT INR 1.15 (0.83-1.09) H 03/10/19 12:26 Problem List - Problems (1) Anemia Assessment/Plan: s/p egd refusing bone marrow biopsy monitor h/h Code(s): D64.9 - ANEMIA, UNSPECIFIED Qualifiers: (2) Back pain Assessment/Plan: neurology PT eval lidocaine,oxycodone lyrica Code(s): M54.9 - DORSALGIA, UNSPECIFIED
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
--- NOTE | 2019-03-12 18:45 | PN ---
Progress Note (short form) - Note Progress Note: EGD performed today revealing multiple gastric antral polyps, largest 15mm was removed. Also with duodenal polyps, largest in bulb removed. Suspect source of chronic blood loss as oozing noted from one of the gastric polyps initially. Recommendations: -Monitor Hb and for evidence of bleeding -Aim plts >50 -Avoid NSAIDs for 5 days post procedure -Follow up pathology
[2019-03-12] MEDS: LIDOCAINE PATCH REMOVAL MC SCH (21:17)
[2019-03-12] MEDS: metoPROLOL SUCCINATE 25 MG TAB.SR.24H (FP) PO SCH (21:18)
[2019-03-12] MEDS: PREGABALIN 100 MG CAPSULE PO SCH (21:18)
[2019-03-13] MEDS: metFORMIN HCL 500 MG TABLET (FP) PO SCH (06:17)
[2019-03-13 07:33] LABS: ALBUMIN 2.7 g/dl (3.4-5.0); ALK PHOS 48 U/L (45-117); ANION GAP 5 MMOL/L (8-16); BASO % 0.8 % (0-2.0); BILIRUBIN,TOTAL 0.5 mg/dL (0.2-1); BLOOD UREA NITROGEN 17 mg/dL (7-18); CHLORIDE 110 mmol/L (98-107); CO2 26 mmol/L (21-32); EOS % 3.6 % (0-4.5); GLUCOSE,RANDOM 144 mg/dL (74-106); HEMATOCRIT 25.6 % (32.4-45.2); HEMOGLOBIN 8.1 GM/dL (10.7-15.3); LYMPH % 17.4 % (8-40); MCH 31.3 pg (25.7-33.7); MCHC 31.4 g/dl (32.0-36.0); MEAN CELL VOLUME 99.8 fl (80-96); MONO % 9.7 % (3.8-10.2); NEUT % 68.5 % (42.8-82.8); PLATELET COUNT 54 K/MM3 (134-434); POTASSIUM 4.6 mmol/L (3.5-5.1); RBC 2.57 M/mm3 (3.60-5.2); RDW 16.7 % (11.6-15.6); SGOT/AST 10 U/L (15-37); SGPT/ALT 16 U/L (13-61); SODIUM 141 mmol/L (136-145); TOT PROT 5.6 g/dl (6.4-8.2); WHITE BLOOD COUNT 3.6 K/mm3 (4.0-10.0)
[2019-03-13] MEDS: BUDESONIDE/FORMETEROL FUMARATE 160/4.5 mcg INHALER IH SCH ×2 (10:05→21:34)
[2019-03-13] MEDS: CHOLECALCIFEROL (VITAMIN D3) 1,000 UNIT TABLET (FP) PO SCH (11:01)
[2019-03-13] MEDS: FERROUS SO4 325 MG TABLET (FP) PO SCH (11:01)
[2019-03-13] MEDS: PANTOPRAZOLE 40 MG TABLET (FP) PO SCH (11:02)
[2019-03-13] MEDS: FOLIC ACID 1 MG TABLET (FP) PO SCH (11:02)
[2019-03-13] MEDS: ASCORBIC ACID 500 MG TABLET (FP) PO SCH (11:02)
[2019-03-13] MEDS: CYANOCOBALAMIN (VITAMIN B-12) 100 MCG TABLET PO SCH (11:02)
[2019-03-13] MEDS: LIDOCAINE 5% TOPICAL PATCH TP SCH (11:02)
[2019-03-13] MEDS: LOSARTAN POTASSIUM 50 MG TABLET (FP) PO SCH (11:03)
[2019-03-13] MEDS: EZETIMIBE 10 MG TABLET (FP) PO SCH (11:04)
[2019-03-13] MEDS: TIOTROPIUM BROMIDE 2.5 MCG (SPIRIVA) RESPIMAT INHALER IH SCH (11:04)
--- NOTE | 2019-03-13 11:52 | PN ---
Progress Note, Physician Chief Complaint: Anemia Lower Back Pain History of Present Illness: S/P EGD yesterday EGD revealing multiple gastric antral polyps, largest 15mm was removed. Also with duodenal polyps, largest in bulb removed. Suspect source of chronic blood loss as oozing noted from one of the gastric polyps initially. maintaining plt >50 - Current Medication List Current Medications: Active Medications Acetaminophen (Tylenol -) 650 mg PO Q6H PRN PRN Reason: PAIN LEVEL 1-5 Ascorbic Acid (Vitamin C -) 500 mg PO DAILY [facility] Last Admin: 03/13/19 11:02 Dose: 500 mg Budesonide/Formoterol Fumarate (Symbicort 160/4.5mcg -) 2 puff IH BID [facility] Last Admin: 03/12/19 21:18 Dose: 2 puff Cholecalciferol (Vitamin D3 -) 1,000 unit PO DAILY [facility] Last Admin: 03/13/19 11:01 Dose: 1,000 unit Cyanocobalamin (Vitamin B12 -) 100 mcg PO DAILY [facility] Last Admin: 03/13/19 11:02 Dose: 100 mcg Ezetimibe (Zetia -) 10 mg PO DAILY [facility] Last Admin: 03/13/19 11:04 Dose: 10 mg Ferrous Sulfate (Feosol -) 325 mg PO DAILY@0800 [facility] Last Admin: 03/13/19 11:01 Dose: 325 mg Folic Acid (Folic Acid -) 1 mg PO DAILY [facility] Last Admin: 03/13/19 11:02 Dose: 1 mg Lidocaine (Lidoderm Patch -) 1 patch TP DAILY [facility] Last Admin: 03/13/19 11:02 Dose: 1 patch Losartan Potassium (Cozaar -) 50 mg PO DAILY [facility] Last Admin: 03/13/19 11:03 Dose: 50 mg Metformin HCl (Glucophage -) 500 mg PO DAILY@0700 [facility] Last Admin: 03/13/19 06:17 Dose: Not Given Metoprolol Succinate (Toprol Xl -) 25 mg PO HS [facility] Last Admin: 03/12/19 21:18 Dose: 25 mg Miscellaneous (Lidoderm Patch Removal) 1 each MC DAILY@2200 [facility] Last Admin: 03/12/19 21:17 Dose: Not Given Oxycodone/Acetaminophen (Percocet 5/325 -) 1 combo PO Q8H PRN PRN Reason: PAIN LEVEL 6-10 Last Admin: 03/12/19 23:57 Dose: 1 combo Pantoprazole Sodium (Protonix -) 40 mg PO BID [facility] Last Admin: 03/13/19 11:02 Dose: 40 mg Pregabalin (Lyrica -) 100 mg PO HS [facility] Last Admin: 03/12/19 21:18 Dose: 100 mg Tiotropium [place] (Spiriva Respimat) 2 puff IH DAILY [facility] Last Admin: 03/13/19 11:04 Dose: 2 puff - Objective Vital Signs: Vital Signs Temperature 98.2 F 03/13/19 06:19 Pulse Rate 86 03/13/19 06:19 Respiratory Rate 18 03/13/19 06:19 Blood Pressure 101/51 L 03/13/19 06:19 O2 Sat by Pulse Oximetry (%) 94 L 03/12/19 21:00 Constitutional: Yes: Well Nourished, No Distress, Calm Cardiovascular: Yes: Regular Rate and Rhythm Respiratory: Yes: Regular Gastrointestinal: Yes: WNL Genitourinary: Yes: WNL Musculoskeletal: Yes: Back Pain Extremities: Yes: WNL Edema: No Peripheral Pulses WNL: Yes Neurological: Yes: Alert, Oriented Psychiatric: Yes: Alert, Oriented Labs: CBC, BMP 03/13/19 06:00 03/13/19 06:00 INR, PTT INR 1.15 (0.83-1.09) H 03/10/19 12:26 Assessment/Plan -(1) Anemia Assessment/Plan: -H/H stable -transfuse if Hg <7.0 to avoid fluid overload -Ferrous Sulfate -GI consult -anemia profile, B12 -EGD revealing multiple gastric antral polyps, largest 15mm was removed. Also with duodenal polyps, largest in bulb removed. Suspect source of chronic blood loss as oozing noted from one of the gastric polyps initially. Code(s): D64.9 - ANEMIA, UNSPECIFIED Qualifiers: (2) Thrombocytopenia Assessment/Plan: -PLT 50 -Heme consult Code(s): D69.6 - THROMBOCYTOPENIA, UNSPECIFIED (3) Gastritis Assessment/Plan: -Protonix 40mg BID Code(s): K29.70 - GASTRITIS, UNSPECIFIED, WITHOUT BLEEDING (4) Back pain Assessment/Plan: -pain management -Seen by Neurology -O/P imaging and EMG -PT -xray ordered Code(s): M54.9 - DORSALGIA, UNSPECIFIED (5) CAD (coronary artery disease) Assessment/Plan: -continue Zetia Code(s): I25.10 - ATHSCL HEART DISEASE OF [place] CORONARY ARTERY W/O ANG PCTRS Qualifiers: Coronary Disease-Associated Artery/Lesion type: [place] artery [place] vs. transplanted heart: [place] heart Associated angina: without angina Qualified Code(s): I25.10 - Atherosclerotic heart disease of [place] coronary artery without angina pectoris (6) COPD (chronic obstructive pulmonary disease) Assessment/Plan: -Spiriva + Symbicort -O2 via NC -keep SpO2 >90% -CXR reviewed Code(s): J44.9 - CHRONIC OBSTRUCTIVE PULMONARY DISEASE, UNSPECIFIED Qualifiers: Chronic bronchitis type: unspecified (7) Cirrhosis of liver Assessment/Plan: -monitor LFTs -GI consult Code(s): K74.60 - UNSPECIFIED CIRRHOSIS OF LIVER (8) Diabetes Assessment/Plan: -D/C BGM ACHS -Continue Metformin 500 mg po daily -D/C Glyburide -HgA1c 4.7 Code(s): E11.9 - TYPE 2 DIABETES MELLITUS WITHOUT COMPLICATIONS Qualifiers: Diabetes mellitus type: type 2 (9) HTN (hypertension) Assessment/Plan: -Cozaar and Metoprolol -Low Na diet Code(s): I10 - ESSENTIAL (PRIMARY) HYPERTENSION Qualifiers: Hypertension type: essential hypertension Qualified Code(s): I10 - Essential (primary) hypertension Code(s): D64.9 - ANEMIA, UNSPECIFIED Qualifiers: D/C home in AM
--- NOTE | 2019-03-13 13:15 | PATH ---
Surgical Pathology Report Patient Name: REINIER MOORE [facility]. Rec. #: [id number] /Age/Gender: 1940 (Age: 78) / F Account: [id number] Location: [address] [place] [address] Taken: 03/12/2019 Received: 03/12/2019 Reported: 03/13/2019 Physicians: Storm Nelson M.D. Specimen(s) Received A: DUODENUM B: DUODENUM C: GASTRIC ANTRUM D: 2ND PORTION DUODENAL POLYP E: GASTRIC POLYP Clinical History Anemia Postoperative diagnosis: Gastric and duodenal polyps Final Diagnosis A. DUODENAL POLYP, POLYPECTOMY: DUODENUM MUCOSA WITH CRISTOPHER GLAND HYPERPLASIA, FOCAL EPITHELIAL FOVEOLAR METAPLASIA, EDEMATOUS CHANGE, ACUTE AND CHRONIC INFALMMATION, CONSISTENT WITH PEPTIC DUODENITIS. B. DUODENUM POLYP, PARTIALLY REMOVED, POLYPECTOMY: DUODENUM MUCOSA WITH CRISTOPHER GLAND HYPERPLASIA. C. GASTRIC ANTRUM, BIOPSY: GASTRIC MUCOSA WITH REACTIVE GASTROPATHY. IMMUNOSTAIN FOR H. PYLORI IS NEGATIVE. NEGATIVE FOR INTESTINAL METAPLASIA. D. SECOND PORTION DUODENUM POLYP, BIOPSY: DUODENUM MUCOSA WITH CRISTOPHER'S GLAND OVERGROWTH IN THE LAMINA PROPRIA, FOCAL EPITHELIAL FOVEOLAR METAPLASIA, CONSISTENT WITH PEPTIC DUODENITIS. E. GASTRIC POLYP, POLYPECTOMY: HYPERPLASTIC POLYP WITH SURFACE EROSION, ACUTE AND CHRONIC INFLAMMATION. IMMUNOSTAIN FOR H. PYLORI IS NEGATIVE. NEGATIVE FOR INTESTINAL METAPLASIA. Electronically Signed Son Lobo M.D. Gross Description A. Received in formalin labeled "hot snare duodenal polypectomy," is a 1.0 x 0.7 x 0.6 cm gonzalez, polypoid portion of soft tissue. The specimen is bisected and entirely submitted in one cassette. B. Received in formalin, labeled "hot snare polypectomy partial biopsy polyp duodenum" are 2 gonzalez, irregular portions of soft tissue averaging 0.4 cm. in greatest dimension. The specimens are submitted in toto in one cassette. C. Received in formalin, labeled "biopsy gastric antrum" are 2 gonzalez, irregular portions of soft tissue measuring 0.4 and 0.6 cm. in greatest dimension. The specimens are submitted in toto in one cassette. D. Received in formalin, labeled "biopsy second portion of duodenal polyp" are 2 gonzalez, irregular portions of soft tissue measuring 0.2 and 0.3 cm. in greatest dimension. The specimens are submitted in toto in one cassette. E. Received in formalin labeled "hot snare gastric polypectomy," is a 1.0 x 0.8 x 0.6 cm gonzalez, polypoid portion of soft tissue. The specimen is bisected and entirely submitted in one cassette. 03/12/[address] [facility]03/12/2019
--- NOTE | 2019-03-13 17:53 | PN.GI ---
GI Progress Note Subjective: No acute events No overt bleeding EGD report reviewed and pathology: Hyperplastic gastric polyp and deshaun's gland hyperplasia. No adenomatous polyps Previous EGD 11/30 and 07/31 revealed duodenal dieulafoys and were treated (? if that was the cause of resultant deshaun's gland hyperplasia) Previous colonoscopy 2017 revealed AVM of the ascending colon. Was taking ibuprofen at home lately secondary to back pain. - Objective Vital Signs: Vital Signs Temperature 98.2 F 03/13/19 14:41 Pulse Rate 83 03/13/19 14:41 Respiratory Rate 18 03/13/19 06:19 Blood Pressure 129/55 L 03/13/19 14:41 O2 Sat by Pulse Oximetry (%) 94 L 03/12/19 21:00 Constitutional: Calm Eyes: Yes: Sclera Icterus Cardiovascular: Yes: Regular Rate and Rhythm, Murmur (systolic murmur) Respiratory: Yes: CTA Bilaterally Gastrointestinal Inspection: Yes: Scars (long oblique RUQ scar). No: Distention ...Auscultate: Yes: Normoactive Bowel Sounds ...Palpate: Yes: Soft. No: Hepatomegaly, Tenderness ...Percussion: No: Tympanitic Edema: No Neurological: Yes: Alert Labs: CBC, BMP 03/13/19 06:00 03/13/19 06:00 INR, PTT INR 1.15 (0.83-1.09) H 03/10/19 12:26 Problem List - Problems (1) Anemia Assessment/Plan: Benign polypoid findings on upper endoscopy with previous colonic ectasia noted on prior colonoscopy No significant iron deficiency Suspect multifactorial cause of pancytopenia. With platelets of 50k simply fro portal HTN, would think there would be more obvious upper gastrointestinal manifestations such as portal gastropathy / variceal disease Advised protonix 40mg daily Given recent polypectomies, keep platelet count >50K Heme evaluation Iron supplementation Monitor for overt bleeding Code(s): D64.9 - ANEMIA, UNSPECIFIED Qualifiers: Anemia type: unspecified type
--- NOTE | 2019-03-13 18:52 | PN ---
Progress Note (short form) - Note Progress Note: Patient seen and examined Complains of back pains Results of endoscopy noted Had taken NSAI at home because of back pain Last Vital Signs Temp Pulse Resp BP Pulse Ox 98.2 F 83 18 129/55 L 95 03/13/19 14:41 03/13/19 14:41 03/13/19 09:00 03/13/19 14:41 03/13/19 09:00 HEENT: ALLEN, EOM Intact Cor: RSR, No murmurs, No gallops Lungs: rhonchi Abd: Soft, Normal bowel sounds, No organomegaly Ext:No significant edema Skin: No rashes, Integument intact CBC, BMP 03/13/19 06:00 03/13/19 06:00 Current Medications Generic Name Dose Route Start Last Admin Trade Name Freq PRN Reason Stop Dose Admin Acetaminophen 650 mg 03/10/19 20:52 Tylenol - PO Q6H PRN PAIN LEVEL 1-5 Ascorbic Acid 500 mg 03/11/19 10:00 03/13/19 11:02 Vitamin C - PO 500 mg DAILY KRIS Administration Budesonide/Formoterol Fumarate 2 puff 03/10/19 22:00 03/13/19 10:05 Symbicort 160/4.5mcg - IH 2 puff BID KRIS Administration Cholecalciferol 1,000 unit 03/11/19 10:00 03/13/19 11:01 Vitamin D3 - PO 1,000 unit DAILY KRIS Administration Cyanocobalamin 100 mcg 03/11/19 10:00 03/13/19 11:02 Vitamin B12 - PO 100 mcg DAILY KRIS Administration Ezetimibe 10 mg 03/11/19 10:00 03/13/19 11:04 Zetia - PO 10 mg DAILY KRIS Administration Ferrous Sulfate 325 mg 03/11/19 08:00 03/13/19 11:01 Feosol - PO 325 mg DAILY@0800 KRIS Administration Folic Acid 1 mg 03/11/19 10:00 03/13/19 11:02 Folic Acid - PO 1 mg DAILY KRIS Administration Lidocaine 1 patch 03/11/19 10:00 03/13/19 11:02 Lidoderm Patch - TP 1 patch DAILY KRIS Administration Losartan Potassium 50 mg 03/11/19 10:00 03/13/19 11:03 Cozaar - PO 50 mg DAILY KRIS Administration Metformin HCl 500 mg 03/11/19 07:00 03/13/19 06:17 Glucophage - PO Not Given DAILY@0700 KRIS Metoprolol Succinate 25 mg 03/10/19 22:00 03/12/19 21:18 Toprol Xl - PO 25 mg HS KIRS Administration Miscellaneous 1 each 03/10/19 22:00 03/12/19 21:17 Lidoderm Patch Removal MC Not Given DAILY@2200 KRIS Oxycodone/Acetaminophen 1 combo 03/10/19 21:05 03/13/19 14:55 Percocet 5/325 - PO 1 combo Q8H PRN Administration PAIN LEVEL 6-10 Pantoprazole Sodium 40 mg 03/14/19 10:00 Protonix - PO DAILY [facility] Pregabalin 100 mg 03/10/19 22:00 03/12/19 21:18 Lyrica - PO 100 mg HS KRIS Administration Tiotropium [place] 2 puff 03/11/19 10:00 03/13/19 11:04 Spiriva Respimat IH 2 puff DAILY KRIS Administration Impression: Anemia- ? component of blood loss Elevated corrected reticulocyte count raises concern for component of increased rbc destruction Hypersplenism with leukopenia and thrombocytopenia likely secondary resultants.
[2019-03-13] MEDS: metoPROLOL SUCCINATE 25 MG TAB.SR.24H (FP) PO SCH (21:34)
[2019-03-13] MEDS: PREGABALIN 100 MG CAPSULE PO SCH (21:34)
[2019-03-13] MEDS: LIDOCAINE PATCH REMOVAL MC SCH (21:35)
[2019-03-14] MEDS: metFORMIN HCL 500 MG TABLET (FP) PO SCH (06:14)
[2019-03-14 09:19] VITALS: BP 104/50; TEMP 98.7
[2019-03-14] MEDS: FERROUS SO4 325 MG TABLET (FP) PO SCH (09:30)
[2019-03-14] MEDS: LOSARTAN POTASSIUM 50 MG TABLET (FP) PO SCH (09:31)
[2019-03-14] MEDS: CYANOCOBALAMIN (VITAMIN B-12) 100 MCG TABLET PO SCH (09:32)
[2019-03-14] MEDS: ASCORBIC ACID 500 MG TABLET (FP) PO SCH (09:32)
[2019-03-14] MEDS: LIDOCAINE 5% TOPICAL PATCH TP SCH (09:32)
[2019-03-14] MEDS: FOLIC ACID 1 MG TABLET (FP) PO SCH (09:32)
[2019-03-14] MEDS: CHOLECALCIFEROL (VITAMIN D3) 1,000 UNIT TABLET (FP) PO SCH (09:33)
[2019-03-14] MEDS: EZETIMIBE 10 MG TABLET (FP) PO SCH (09:33)
[2019-03-14] MEDS: BUDESONIDE/FORMETEROL FUMARATE 160/4.5 mcg INHALER IH SCH (09:35)
[2019-03-14] MEDS: TIOTROPIUM BROMIDE 2.5 MCG (SPIRIVA) RESPIMAT INHALER IH SCH (09:35)
[2019-03-14] MEDS ORDERED: PANTOPRAZOLE 40 MG TABLET (FP) PO SCH (10:00)
--- NOTE | 2019-03-14 10:55 | DS ---
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 Patient presented to ER with complaints of lower back pain and weakness that started 1 week ago. She complains of feeling SOB. In ER patient noted with Hg 7.1. Constitutional: Yes: Well Nourished, No Distress, Calm Cardiovascular: Yes: Regular Rate and Rhythm Respiratory: Yes: Regular Gastrointestinal: Yes: Normal Bowel Sounds Musculoskeletal: Yes: Back Pain (Spinal stenosis) Extremities: Yes: WNL Edema: No Peripheral Pulses WNL: Yes Neurological: Yes: Alert, Oriented Psychiatric: Yes: Alert, Oriented Labs: CBC, BMP 03/13/19 06:00 03/13/19 06:00 Discharge Summary Reason For Visit: ANEMIA Current Active Problems Anemia (Chronic) Thrombocytopenia (Chronic) Hospital Course: Laboratory Last Values WBC 3.6 K/mm3 (4.0-10.0) L 03/13/19 06:00 RBC 2.57 M/mm3 (3.60-5.2) L 03/13/19 06:00 Hgb 8.1 GM/dL (10.7-15.3) L 03/13/19 06:00 Hct 25.6 % (32.4-45.2) L 03/13/19 06:00 MCV 99.8 fl (80-96) H 03/13/19 06:00 MCH 31.3 pg (25.7-33.7) 03/13/19 06:00 MCHC 31.4 g/dl (32.0-36.0) L 03/13/19 06:00 RDW 16.7 % (11.6-15.6) H 03/13/19 06:00 Plt Count 54 K/MM3 (134-434) L 03/13/19 06:00 MPV 8.0 fl (7.5-11.1) 03/13/19 06:00 Absolute Neuts (auto) 2.4 K/mm3 (1.5-8.0) 03/13/19 06:00 Neutrophils % 68.5 % (42.8-82.8) 03/13/19 06:00 Lymphocytes % 17.4 % (8-40) 03/13/19 06:00 Monocytes % 9.7 % (3.8-10.2) 03/13/19 06:00 Eosinophils % 3.6 % (0-4.5) 03/13/19 06:00 Basophils % 0.8 % (0-2.0) 03/13/19 06:00 Nucleated RBC % 0 % (0-0) 03/13/19 06:00 Hypochromia 0 03/10/19 12:26 Platelet Estimate Decreased 03/10/19 12:26 Polychromasia 1+ 03/10/19 12:26 Basophilic Stippling 1+ 03/10/19 12:26 Anisocytosis 2+ 03/10/19 12:26 Microcytosis 1+ 03/10/19 12:26 Macrocytosis 1+ 03/10/19 12:26 Tear Drop Cells 1+ 03/10/19 12:26 Fragmented RBCs 1+ 03/10/19 12:26 Retic Count 5.52 % (0.5-1.5) H D 03/11/19 06:30 PT with INR 13.60 SEC (9.7-13.0) H 03/10/19 12:26 INR 1.15 (0.83-1.09) H 03/10/19 12:26 PTT ([place]in FS) 37.3 SECONDS (25.2-36.5) H 03/10/19 12:26 Sodium 141 mmol/L (136-145) 03/13/19 06:00 Potassium 4.6 mmol/L (3.5-5.1) 03/13/19 06:00 Chloride 110 mmol/L (98-107) H 03/13/19 06:00 Carbon Dioxide 26 mmol/L (21-32) 03/13/19 06:00 Anion Gap 5 MMOL/L (8-16) L 03/13/19 06:00 BUN 17 mg/dL (7-18) 03/13/19 06:00 Creatinine 1.0 mg/dL (0.55-1.3) 03/13/19 06:00 Creat Clearance w eGFR 53.48 (>60) 03/13/19 06:00 POC Glucometer 139 UNITS (80-120) 03/14/19 06:12 Random Glucose 144 mg/dL (74-106) H 03/13/19 06:00 Hemoglobin A1c % 4.7 % (4.2-6.3) 03/11/19 06:30 Calcium 8.0 mg/dL (8.5-10.1) L 03/13/19 06:00 Phosphorus 4.5 mg/dL (2.5-4.9) 03/11/19 06:30 Magnesium 2.1 mg/dL (1.8-2.4) 03/11/19 06:30 Iron 59 ug/dL (27-139) 03/11/19 06:30 TIBC 401 ug/dL (250-450) 03/11/19 06:30 Iron Saturation 15 % (15-55) 03/11/19 06:30 Ferritin 17.4 ng/ml (8-388) 03/11/19 06:30 Total Bilirubin 0.5 mg/dL (0.2-1) 03/13/19 06:00 AST 10 U/L (15-37) L 03/13/19 06:00 ALT 16 U/L (13-61) 03/13/19 06:00 Alkaline Phosphatase 48 U/L (45-117) 03/13/19 06:00 LD Total 177 U/L (84-246) 03/14/19 06:20 Creatine Kinase 76 U/L (26-192) 03/10/19 12:26 Troponin I < 0.02 ng/ml (0.00-0.05) 03/10/19 12:26 B-Natriuretic Peptide 786.5 pg/ml (5-450) H 03/10/19 12:26 Total Protein 5.6 g/dl (6.4-8.2) L 03/13/19 06:00 Albumin 2.7 g/dl (3.4-5.0) L 03/13/19 06:00 Vitamin B12 1106 pg/ml (193-986) H 03/13/19 06:00 TSH 1.44 uIU/ml (0.358-3.74) 03/11/19 06:30 Blood Type A POSITIVE 03/10/19 14:27 Antibody Screen Negative 03/10/19 14:27 Direct Antiglob Test Negative (NEGATIVE) 03/14/19 06:20 Crossmatch See Detail 03/10/19 14:27 Vital Signs Temp 98.7 F 03/14/19 08:00 Pulse 76 03/14/19 08:00 Resp 20 03/14/19 08:00 BP 104/50 L 03/14/19 08:00 Pulse Ox 93 L 03/14/19 09:00 Intake & Output 03/13/19 03/13/19 03/14/19 11:59 23:59 11:59 Intake Total 200 425 120 Balance 200 425 120 Weight 86.296 kg 85.389 kg Intake: Oral 200 425 120 Other: Voiding Method Toilet Toilet Toilet # Unmeasured Voids Void 1 2 Bowel Movement No Weight Measurement Method Built in Bedscale Built in Bedscale Condition: Stable - Instructions Diet, Activity, Other Instructions: Follwo up with Neurology- Pete Stover MD F/U with PCP Cody Adorno MD F/U with Gastroenterology Brittney Pozo MD all within 2 weeks Referrals: Cody Adorno MD [Primary Care Provider] - Pete Stover MD [Staff Physician] - Brittney Pozo DO [Staff Physician] - Disposition: HOME - Home Medications Comprehensive Discharge Medication List: Ambulatory Orders Ezetimibe/Simvastatin [Vytorin 10-20 mg Tablet] 1 each PO HS 05/03/12 Ferrous Gluconate 325 mg PO DAILY 05/03/12 Metoprolol Succinate [Toprol XL -] 25 mg PO HS 05/03/12 Pregabalin [Lyrica] 100 mg PO HS 05/03/12 Budesonide/Formeterol Fumarate [SYMBICORT 160/4.5mcg -] 2 inh PO BID 12/31/13 metFORMIN HCL [Glucophage -] 500 mg PO DAILY 12/31/13 Tiotropium [place] [Spiriva] 1 inh PO DAILY #1 01/02/14 Cholecalciferol (Vitamin D3) [Vitamin D3] 1,000 unit PO DAILY 06/18/14 Cyanocobalamin [Vitamin B12 -] 1,000 mcg PO DAILY 06/18/14 Ascorbate Calcium [Vitamin C] 500 mg PO DAILY 01/13/17 Losartan Potassium [Cozaar -] 50 mg PO DAILY tablet 01/18/17 Acetaminophen [Tylenol] 650 mg PO PRN PRN 08/01/17 Folic Acid 1 mg PO DAILY 08/01/17 Lidocaine 5% Patch [Lidoderm -] 1 patch TP HS #10 patch 08/14/17 Pantoprazole Sodium [Protonix -] 40 mg PO BID #60 tab 08/14/17 Oxycodone HCl/Acetaminophen [Percocet 5-325 mg Tablet] 1 combo PO Q8H PRN #15 tablet MDD 3 03/13/19
[2019-03-14 11:54] VITALS: PULSE 74
--- NOTE | 2019-03-14 15:33 | PN.GI ---
GI Progress Note Subjective: Pt seen/examined at bedside, feeling well, wants to go home. Denies abdominal pain, n/v, melena or hematochezia. Tolerating po. - Objective Vital Signs: Vital Signs Temperature 98.7 F 03/14/19 08:00 Pulse Rate 74 03/14/19 11:53 Respiratory Rate 20 03/14/19 08:00 Blood Pressure 104/50 L 03/14/19 08:00 O2 Sat by Pulse Oximetry (%) 93 L 03/14/19 11:53 Constitutional: Well Nourished, No Distress, Calm Cardiovascular: Yes: WNL, Regular Rate and Rhythm Respiratory: Yes: WNL, Regular, CTA Bilaterally Gastrointestinal Inspection: Yes: WNL ...Palpate: Yes: Other (abd soft, nt, nd) Labs: CBC, BMP 03/13/19 06:00 03/13/19 06:00 INR, PTT INR 1.15 (0.83-1.09) H 03/10/19 12:26 Problem List - Problems (1) Anemia Assessment/Plan: s/p EGD on 03/12 revealing multiple gastric and duodenum polyps. Pathology revealing hyperplastic gastric polyps and brunners gland hyperplasia. No adenoma or evidence of malignancy, HP negative.. No varices or portal htn changes seen on EGD. Source of anemia likely multifactorial in setting of pancytopenia though suspect component of chronic blood loss in setting of gastric polyps (one oozing intermittently) and h/o angioectasias. Hb stable, no overt bleeding. DC planning today per primary team. -Continue to monitor Hb and for evidence of bleeding -Iron supplementation -PPI daily -NSAID avoidance -Maintain plts >50 -Hematology follow up -If dc planning, recommend outpatient GI follow up Code(s): D64.9 - ANEMIA, UNSPECIFIED Qualifiers: Anemia type: unspecified type Qualified Code(s): D64.9 - Anemia, unspecified
== END 2019-03-14 15:25 | disposition home or self-care (01) ==
LOC: JER 11:25 → JERBED 13:42 → J6S 14:58
PROVIDERS: ADMIT Family Medicine; ATTEND Family Medicine
PROC: 0DB98ZX Excision of Duodenum, Via Natural or Artificial Opening Endoscopic, Diagnostic (ICD-10-PCS; principal; 2019-03-10)
PROC: 0DB68ZX Excision of Stomach, Via Natural or Artificial Opening Endoscopic, Diagnostic (ICD-10-PCS; 2019-03-10)
PROC: 0DB98ZX Excision of Duodenum, Via Natural or Artificial Opening Endoscopic, Diagnostic (ICD-10-PCS; 2019-03-10)
PROC: 0DB68ZX Excision of Stomach, Via Natural or Artificial Opening Endoscopic, Diagnostic (ICD-10-PCS; 2019-03-10)
PROC: 30233N1 Transfusion of Nonautologous Red Blood Cells into Peripheral Vein, Percutaneous Approach (ICD-10-PCS; 2019-03-10)
PROC: 3E0F7GC Introduction of Other Therapeutic Substance into Respiratory Tract, Via Natural or Artificial Opening (ICD-10-PCS; 2019-03-10)
DX: D53.9 Nutritional anemia, unspecified (principal); D69.6 Thrombocytopenia, unspecified; K29.70 Gastritis, unspecified, without bleeding; M54.9 Dorsalgia, unspecified; I25.10 Atherosclerotic heart disease of native coronary artery without angina pectoris; J44.9 Chronic obstructive pulmonary disease, unspecified; K74.60 Unspecified cirrhosis of liver; E11.9 Type 2 diabetes mellitus without complications; I10 Essential (primary) hypertension; E78.5 Hyperlipidemia, unspecified; K29.80 Duodenitis without bleeding; K31.89 Other diseases of stomach and duodenum; K31.9 Disease of stomach and duodenum, unspecified; K31.7 Polyp of stomach and duodenum; Z79.84 Long term (current) use of oral hypoglycemic drugs; I25.2 Old myocardial infarction; R26.2 Difficulty in walking, not elsewhere classified; Z99.89 Dependence on other enabling machines and devices; M47.896 Other spondylosis, lumbar region; M47.892 Other spondylosis, cervical region
CPT/HCPCS: 36415; 36430; 36511; 71046-TC-FY; 72100-TC-FY; 72131-TC; 73523-TC-FY; 76700-TC; 80053; 82550; 82607; 82728; 82962; 83010; 83036; 83540; 83550; 83615; 83735; 83880; 84100; 84436; 84443; 84484; 85025; 85027; 85044; 85610; 85730; 86850; 86880; 86900; 86901; 86922; 88305-TC; 88342-TC; 93005; 93010; 93880-TC; 94640; 94761; 97116-GP; 97161-GP; 99282-25; G0378; P9038; P9058

== ENCOUNTER 2019-06-27 14:06 | Inpatient (IN) | payer OTHER, MEDICARE | END 2019-06-30 13:47 | disposition home health service (06) | LOC: JER 14:06 → J8W 06-28 18:00 → JERBED 17:57 ==

== ENCOUNTER 2019-07-10 16:21 | Inpatient (IN) | payer OTHER, MEDICARE ==
[2019-07-10 16:39] VITALS: BMI 31.0
--- NOTE | 2019-07-10 16:41 | PDOC ---
Rapid Medical Evaluation Time Seen by Provider: 07/10/19 16:36 Medical Evaluation: Allergies Allergy/AdvReac Type Severity Reaction Status Date / Time No Known Drug Allergies Allergy Verified 06/27/19 14:22 07/10/19 16:36 Pt presents to the ER for hypoxia. Was seen in Dr. Reed's office and had an O2 Sat of 79%. The patient states she has been short of breath since March. Exam: Lungs CTAB, O2 Sat 91 Orders: Labs, CXR, EKG Pt to proceed to the ER for further evaluation Discharge Disposition - Diagnosis SOB (shortness of breath) - Referrals - Patient Instructions - Post Discharge Activity
[2019-07-10] MEDS ORDERED: ALBUTEROL SO4 2.5/IPRATROPIUM 0.5 INH SOL 3 ML VIAL.NEB. NEB ONE ×2 (17:06→17:51)
[2019-07-10 17:26] LABS: BASO % 0.9 % (0-2.0); EOS % 0.9 % (0-4.5); HEMATOCRIT 33.6 % (32.4-45.2); HEMOGLOBIN 10.3 GM/dL (10.7-15.3); LYMPH % 10.3 % (8-40); MCH 31.1 pg (25.7-33.7); MCHC 30.8 g/dl (32.0-36.0); MEAN CELL VOLUME 101.1 fl (80-96); MEAN PLT VOLUME 8.1 fl (7.5-11.1); MONO % 7.7 % (3.8-10.2); NEUT % 80.2 % (42.8-82.8); PLATELET COUNT 61 K/MM3 (134-434); RBC 3.32 M/mm3 (3.60-5.2); RDW 20.2 % (11.6-15.6); WHITE BLOOD COUNT 3.6 K/mm3 (4.0-10.0)
[2019-07-10 17:37] LABS: INR 1.29 (0.83-1.09); PROTHROMBIN TIME (PATIENT) 15.3 SEC (9.7-13.0)
[2019-07-10 17:54] LABS: ALBUMIN 3.3 g/dl (3.4-5.0); BILIRUBIN,TOTAL 0.8 mg/dL (0.2-1); BLOOD UREA NITROGEN 9.8 mg/dL (7-18); CALCIUM 7.9 mg/dL (8.5-10.1); CREATININE 0.9 mg/dL (0.55-1.3); N-TERMINAL BNP 3018.3 pg/ml (5-450); POTASSIUM 3.9 mmol/L (3.5-5.1); TOT PROT 6.3 g/dl (6.4-8.2)
--- NOTE | 2019-07-10 18:38 | PDOC ---
History of Present Illness - General Chief Complaint: Shortness of Breath Stated Complaint: SOB/WEAKNESS Time Seen by Provider: 07/10/19 16:36 - History of Present Illness Initial Comments: Ms. Becker is a 78 y/o female with extensive PMH including anemia, COPD, multiple neck and lower extremity surgeries, pericardial effusion, HTN, HLD, DM presenting today with generalized weakness and shortness of breath that started yesterday. Reports that she has had similar episodes in the past before. On home O2 2L PRN. Today, her O2 was 75% and was sent in by Dr. Adorno for admission. Denies chest pain, denies abdominal pain, fever, cough, dysuria, lower extremity swelling. Past History - Past Medical History Allergies/Adverse Reactions: Allergies Allergy/AdvReac Type Severity Reaction Status Date / Time No Known Drug Allergies Allergy Verified 07/10/19 16:39 Home Medications: Ambulatory Orders Ezetimibe/Simvastatin [Vytorin 10-20 mg Tablet] 1 each PO HS 05/03/12 Metoprolol Succinate [Toprol XL -] 25 mg PO HS 05/03/12 Pregabalin [Lyrica] 100 mg PO HS 05/03/12 Cyanocobalamin [Vitamin B12 -] 1,000 mcg PO DAILY 06/18/14 Pantoprazole Sodium [Protonix -] 40 mg PO BID #60 tab 08/14/17 Glyburide 2.5 mg PO BID 06/27/19 Metformin HCl [Glucophage] 500 mg PO DAILY 06/27/19 Tiotropium [place] [Spiriva Respimat] 1 inh IH DAILY 06/29/19 Anemia: Yes Asthma: No Cancer: No Cardiac Disorders: No CVA: No COPD: Yes CHF: No Dementia: No Diabetes: Yes (NIDDM) GI Disorders: Yes (diverticulosis,constipation) Disorders: No HTN: Yes Hypercholesterolemia: Yes Liver Disease: No Seizures: No - Surgical History Abdominal Surgery: Yes (repair umbilical hernia) Appendectomy: Yes Cardiac Surgery: No Cholecystectomy: Yes Lung Surgery: No Neurologic Surgery: No Orthopedic Surgery: Yes (ORIF, RIGHT ANKLE) - Immunization History Immunization Up to Date: Yes - Suicide/Smoking/Psychosocial Hx Smoking History: Never smoked Have you smoked in the past 12 months: No If you are a former smoker, when did you quit?: 14 yrs- 2002 'Breaking Loose' booklet given: 05/04/12 Hx Alcohol Use: Yes (socially in past) Drug/Substance Use Hx: No Substance Use Type: None Hx Substance Use Treatment: No Review of Systems - Review of Systems Comments:: GENERAL/CONSTITUTIONAL: No fever or chills. Reports generalized weakness. HEAD, EYES, EARS, NOSE AND THROAT: No change in vision. No change in hearing. No sore throat._ CARDIOVASCULAR: No chest pain. Reports shortness of breath. RESPIRATORY: Denies cough, hemoptysis. GASTROINTESTINAL: No nausea, vomiting, diarrhea or constipation. GENITOURINARY: No dysuria, frequency, or change in urination. MUSCULOSKELETAL: No joint or muscle swelling or pain. No neck or back pain. SKIN: No rash. NEUROLOGIC: No headache, vertigo, loss of consciousness, or change in strength/ sensation._ ENDOCRINE: No increased thirst. No abnormal weight change. HEMATOLOGIC/LYMPHATIC: No anemia, easy bleeding, or history of blood clots._ ALLERGIC/IMMUNOLOGIC: No hives or skin allergy. *Physical Exam - Vital Signs Last Vital Signs Temp Pulse Resp BP Pulse Ox 97.9 F 96 H 16 115/54 L 93 L 07/10/19 16:37 07/10/19 16:40 07/10/19 16:39 07/10/19 16:39 07/10/19 16:40 - Physical Exam Comments: GENERAL: Awake, alert, and oriented to person/place/time, in no acute distress_ HEAD: No signs of trauma, normocephalic, atraumatic _ EYES: PERRLA, EOMI, sclera anicteric, conjunctiva clear_ ENT: Hearing grossly normal, nares patent, oropharynx clear without exudates. No uvular deviation. Moist mucosa_ NECK: Normal ROM, supple, no lymphadenopathy, JVD, or masses_ LUNGS: No distress, speaks in full sentences, clear to auscultation bilaterally. No crackles or wheezes appreciated bilaterally. HEART: Regular rate and rhythm, normal S1 and S2, no murmurs appreciated, peripheral pulses normal and equal bilaterally._ ABDOMEN: Soft, nontender, normoactive bowel sounds. No guarding, no rebound. No masses_ EXTREMITIES: Normal inspection, Normal range of motion, no edema. No clubbing or cyanosis_ NEUROLOGICAL: Cranial nerves II through XII grossly intact. Normal speech, normal gait, no focal sensorimotor deficits _ SKIN: Warm, Dry, normal turgor, no rashes or lesions noted. ED Treatment Course - LABORATORY CBC & Chemistry Diagram: 07/10/19 17:15 07/10/19 17:15 - ADDITIONAL ORDERS Additional order review: Laboratory Results 07/10/19 07/10/19 17:15 17:15 PT with INR 15.30 H INR 1.29 H Sodium 142 Potassium 3.9 Chloride 109 H Carbon Dioxide 27 Anion Gap 6 L BUN 9.8 Creatinine 0.9 Est GFR (CKD-EPI)AfAm 70.48 Est GFR (CKD-EPI)NonAf 60.81 Random Glucose 124 H Calcium 7.9 L Total Bilirubin 0.8 AST 20 ALT 13 Alkaline Phosphatase 64 Creatine Kinase 27 Troponin I 0.02 B-Natriuretic Peptide 3018.3 H Total Protein 6.3 L Albumin 3.3 L 07/10/19 17:15 RBC 3.32 L MCV 101.1 H MCHC 30.8 L RDW 20.2 H MPV 8.1 Neutrophils % 80.2 D Lymphocytes % 10.3 D Monocytes % 7.7 Eosinophils % 0.9 Basophils % 0.9 - RADIOLOGY Radiology Studies Ordered: Category Date Time Status CHEST X-RAY PORTABLE* [RAD] Stat Radiology 07/10/19 18:14 Ordered - Medications Given in the ED: ED Medications Discontinued Medications Generic Name Dose Route Start Last Admin Trade Name Freq PRN Reason Stop Dose Admin Albuterol/Ipratropium 1 amp 07/10/19 17:51 07/10/19 17:56 Duoneb - NEB 07/10/19 17:52 1 amp ONCE ONE Administration Medical Decision Making - Medical Decision Making 78F with extensive PMH including COPD presenting today for 1 day of weakness and shortness of breath. Sent in by Dr. Adorno for admission. DDx includes CHF exacerbation vs COPD exacerbation Obtain CBC, CMP, trop, EKG, CXR, BNP, coags. Patient placed on supplemental NC, saturating well at 95% on 4L. Patient given duoneb treatment and improving. 07/10/19 1830 BNP elevated above baseline. 07/10/19 1845 Spoke with the hospitalist team who agrees to admit the patient. *DC/Admit/Observation/Transfer Diagnosis at time of Disposition: SOB (shortness of breath) - Discharge Dispostion Condition at time of disposition: Stable Decision to Admit order: Yes - Referrals - Patient Instructions - Post Discharge Activity
--- NOTE | 2019-07-10 20:13 | PN ---
Progress Note (short form) - Note Progress Note: Brief cardiology note: sent for admission by Dr. Adorno today for SOB and hypoxia Patient known from office, recently found to have mild to moderate pericardial effusion without clinical tamponade. Recent CT chest showed no thoracic mass or other pathology. Bloodwork to evaluate etiology of the effusion including ESR/ TSH and SAADIA were WNL. Echo /case had been reviewed with CT surgery and interventional cardiology and drainage (Window vs US guided pericardiocentesis) was discussed for purpose of diagnosis. As patient has chronic thrombocytopenia, was asx and clinically stable decision made to follow effusion with periodic echo and avoid any procedure. Patient was recently hospitalized here for GI bleeding and was now readmitted for relative hypoxia and SOB. 1. Repeat echo in AM 2. Continue tele. 3. Pulmonary to evaluate. 4. We will follow. Full consult to follow in AM Thank you.
[2019-07-10] MEDS ORDERED: ALBUTEROL SO4 2.5/IPRATROPIUM 0.5 INH SOL 3 ML VIAL.NEB. NEB PRN (20:57)
--- NOTE | 2019-07-10 21:02 | HP ---
CHIEF COMPLAINT: SOB/WEAKNESS PCP:Storm Nelson HISTORY OF PRESENT ILLNESS: 78 y/o female with PMH including anemia, COPD, pericardial effusion, HTN, HLD, DM arrived to ED with generalized weakness and shortness of breath that started yesterday.The patient reports taking home breathing treatments this morning provided little relief. Patient states she has nebulizer but ran out of her albuterol. Patient is on home O2 2L PRN. Today, her O2 was 75% and was sent in by Dr. Adorno for admission. Denies chest pain, denies abdominal pain, fever, cough, dysuria, lower extremity swelling. 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,OA,NIDDM,chronic thrombocytopenia PAST SURGICAL HISTORY: ORIF right ankle, Umbilical hernia, Appendectomy, Cholecystectomy, carotid endarterectomy,cataract removal Social History: Smoking:former smoker, quite 14 yrs ago Alcohol:no Drugs: no Family History:Son (HTN) Allergies: No Known Drug Allergies Allergy (Verified 07/10/19 16:39) HOME MEDICATIONS: Home Medications Medication Instructions Recorded Ezetimibe/Simvastatin [Vytorin 1 each PO HS 05/03/12 10-20 mg Tablet] Metoprolol Succinate [Toprol XL -] 25 mg PO HS 05/03/12 Pregabalin [Lyrica] 100 mg PO HS 05/03/12 Cyanocobalamin [Vitamin B12 -] 1,000 mcg PO DAILY 06/18/14 Pantoprazole Sodium [Protonix -] 40 mg PO BID #60 tab 08/14/17 Glyburide 2.5 mg PO BID 06/27/19 Metformin HCl [Glucophage] 500 mg PO DAILY 06/27/19 Tiotropium [place] [Spiriva 1 inh IH DAILY 06/29/19 Respimat] REVIEW OF SYSTEMS CONSTITUTIONAL: Absent: fever, chills, weight change, + weakness HEENT: Absent: rhinorrhea, nasal congestion, throat pain, throat swelling, difficulty swallowing, mouth swelling, ear pain, eye pain, visual changes CARDIOVASCULAR: Absent: chest pain, syncope, palpitations, irregular heart rate , lightheadedness, peripheral edema RESPIRATORY: + shortness of breath, dyspnea with exertion GASTROINTESTINAL:Absent: abdominal pain, abdominal distension, nausea, vomiting , diarrhea, constipation, melena, hematochezia GENITOURINARY: Absent: dysuria, frequency, urgency, hesitancy, hematuria, flank pain, genital pain MUSCULOSKELETAL: Absent: myalgia, arthralgia, joint swelling, back pain, neck pain SKIN: Absent: rash, itching, pallor NEUROLOGIC: Absent: headache, focal weakness or paresthesias, dizziness, unsteady gait, seizure, mental status changes, bladder or bowel incontinence PSYCHIATRIC: Absent: anxiety, depression, suicidal or homicidal ideation, hallucinations. PHYSICAL EXAMINATION Vital Signs - 24 hr 07/10/19 07/10/19 07/10/19 16:37 16:39 16:40 Temperature 97.9 F Pulse Rate 96 H 96 H Pulse Rate [ 96 H Left Apical] Respiratory 18 16 Rate Blood Pressure 108/52 L Blood Pressure 115/54 L [Left Arm] O2 Sat by Pulse 91 L 93 L 93 L Oximetry (%) 07/10/19 18:56 Temperature Pulse Rate Pulse Rate [ 90 Left Apical] Respiratory 16 Rate Blood Pressure Blood Pressure 91/44 L [Left Arm] O2 Sat by Pulse 94 L Oximetry (%) GENERAL: Awake, alert, and fully oriented, in no acute distress. HEENT: NC/AT, EOMI, PERRLA, No JVD LUNGS: Breath sounds equal, clear to auscultation bilaterally. No wheezes, and no crackles. HEART: Regular rate and rhythm, normal S1 and S2 without murmur, rub or gallop. ABDOMEN: Soft, nontender, not distended, normoactive bowel sounds, no guarding, no rebound, no masses. MUSCULOSKELETAL: Normal range of motion at all joints. No bony deformities or tenderness. No CVA tenderness. NEUROLOGICAL: Cranial nerves II-XII intact. Normal speech. Normal gait. PSYCHIATRIC: Cooperative. Good eye contact. Appropriate mood and affect. SKIN: Warm, dry Laboratory Results - last 24 hr 0807/10/19 07/10/19 17:15 17:15 17:15 WBC 3.6 L RBC 3.32 L Hgb 10.3 L Hct 33.6 D MCV 101.1 H MCH 31.1 MCHC 30.8 L RDW 20.2 H Plt Count 61 L MPV 8.1 Absolute Neuts (auto) 2.9 Neutrophils % 80.2 D Lymphocytes % 10.3 D Monocytes % 7.7 Eosinophils % 0.9 Basophils % 0.9 Nucleated RBC % 0 PT with INR 15.30 H INR 1.29 H Sodium 142 Potassium 3.9 Chloride 109 H Carbon Dioxide 27 Anion Gap 6 L BUN 9.8 Creatinine 0.9 Est GFR (CKD-EPI)AfAm 70.48 Est GFR (CKD-EPI)NonAf 60.81 Random Glucose 124 H Calcium 7.9 L Total Bilirubin 0.8 AST 20 ALT 13 Alkaline Phosphatase 64 Creatine Kinase 27 Troponin I 0.02 B-Natriuretic Peptide 3018.3 H Total Protein 6.3 L Albumin 3.3 L ASSESSMENT/PLAN: 78 y/o female with PMH including anemia, COPD, pericardial effusion, HTN, HLD, DM arrived to ED with generalized weakness and shortness of breath that started yesterday. Patient seen at Dr. Adorno office and sent for further evaluation. CHF vs COPD exacerbation BNP: 3018.3 last echo 05/18/2019 showed large pericaridal effusion, EF 50-55%, moderate , nl LV function - follow up ECHO in AM - follow up cardiology consult - follow up curbing stonecutter consult - continue with o2 via NC 3L - continue with nebulizer PRN - continue with spiriva DM -monitor FSBS - coverage with novolog sliding scale # HTN/HLD - Continue with Vytorin 10-20 mg Tablet 1 each PO HS - Continue with Metoprolol Succinate 25 mg PO HS #GRED - continue with Pantoprazole Sodium 40 mg PO BID DVT prophylaxis: SCD, early ambulation no Ac h/o GI bleed Diet: NPO after midnight, pendin ECHO in AM Problem List - Problem (1) SOB (shortness of breath) Code(s): R06.02 - SHORTNESS OF BREATH (2) COPD (chronic obstructive pulmonary disease) Code(s): J44.9 - CHRONIC OBSTRUCTIVE PULMONARY DISEASE, UNSPECIFIED Qualifiers: Chronic bronchitis type: unspecified (3) CHF (congestive heart failure) Code(s): I50.9 - HEART FAILURE, UNSPECIFIED (4) HLD (hyperlipidemia) Code(s): E78.5 - HYPERLIPIDEMIA, UNSPECIFIED (5) Diabetes Code(s): E11.9 - TYPE 2 DIABETES MELLITUS WITHOUT COMPLICATIONS Qualifiers: Diabetes mellitus type: type 2 (6) HTN (hypertension) Code(s): I10 - ESSENTIAL (PRIMARY) HYPERTENSION Qualifiers: Hypertension type: essential hypertension Qualified Code(s): I10 - Essential (primary) hypertension Visit type - Emergency Visit Emergency Visit: Yes ED Registration Date: 07/10/19 Care time: The patient presented to the Emergency Department on the above date and was hospitalized for further evaluation of their emergent condition. - New Patient This patient is new to me today: Yes Date on this admission: 07/10/19 - Critical Care Critical Care patient: No
[2019-07-10] MEDS: PANTOPRAZOLE 40 MG TABLET (FP) PO SCH (21:47)
[2019-07-10] MEDS: metoPROLOL SUCCINATE 25 MG TAB.SR.24H (FP) PO SCH (21:47)
[2019-07-10] MEDS: PREGABALIN 50 MG CAPSULE PO SCH (21:47)
[2019-07-10] MEDS: EZETIMIBE 10 MG TABLET (FP) PO SCH (21:47)
[2019-07-10] MEDS: ATORVASTATIN CA 10 MG TABLET (FP) PO SCH (21:47)
[2019-07-11] MEDS: INSULIN SLIDING SCALE (NOVOLOG) 1 VIAL SQ SCH ×3 (06:26→19:09)
[2019-07-11 06:47] LABS: HEMATOCRIT 35.8 % (32.4-45.2); HEMOGLOBIN 10.8 GM/dL (10.7-15.3); MCH 31.2 pg (25.7-33.7); MCHC 30.3 g/dl (32.0-36.0); MEAN PLT VOLUME 7.5 fl (7.5-11.1); PLATELET COUNT 60 K/MM3 (134-434); RBC 3.47 M/mm3 (3.60-5.2); RDW 20.9 % (11.6-15.6); WHITE BLOOD COUNT 4.2 K/mm3 (4.0-10.0)
[2019-07-11 06:59] LABS: BLOOD UREA NITROGEN 9.3 mg/dL (7-18); CALCIUM 8.2 mg/dL (8.5-10.1); CREATININE 0.9 mg/dL (0.55-1.3); POTASSIUM 4.4 mmol/L (3.5-5.1)
--- NOTE | 2019-07-11 08:02 | PN ---
Progress Note, Physician History of Present Illness: 78 y/o female with PMH including anemia, COPD, pericardial effusion, HTN, HLD, DM arrived to ED with generalized weakness and shortness of breath that started yesterday.The patient reports taking home breathing treatments this morning provided little relief. Patient states she has nebulizer but ran out of her albuterol. Patient is on home O2 2L PRN. Yesterday, her O2 was 75% and was sent in by Dr. Adorno for admission. Denies chest pain, denies abdominal pain, fever, cough, dysuria, lower extremity swelling. Patient last hospitalization this month 06/27-06/30 for GI bleed,anemia,copd Last echo 05/18/2019 showed large pericaridal effusion, EF 50-55%, moderate , nl LV function c/o fatigue - Current Medication List Current Medications: Active Medications Albuterol/Ipratropium (Duoneb -) 1 amp NEB Q6H PRN PRN Reason: SHORTNESS OF BREATH Atorvastatin Calcium (Lipitor -) 10 mg PO [facility] Last Admin: 07/10/19 21:47 Dose: 10 mg Cyanocobalamin (Vitamin B12 -) 1,000 mcg PO DAILY COUNT INCLUDES THE [facility] Ezetimibe (Zetia -) 10 mg PO [facility] Last Admin: 07/10/19 21:47 Dose: 10 mg Insulin Aspart (Novolog Vial Sliding Scale -) 1 vial SQ TIDAC COUNT INCLUDES THE [facility]; Protocol Last Admin: 07/11/19 06:26 Dose: Not Given Metoprolol Succinate (Toprol Xl -) 25 mg PO [facility] Last Admin: 07/10/19 21:47 Dose: 25 mg Pantoprazole Sodium (Protonix -) 40 mg PO BID COUNT INCLUDES THE [facility] Last Admin: 07/10/19 21:47 Dose: 40 mg Pregabalin (Lyrica -) 100 mg PO [facility] Last Admin: 07/10/19 21:47 Dose: 100 mg Tiotropium [place] (Spiriva Respimat) 2 puff IH DAILY COUNT INCLUDES THE [facility] - Objective Vital Signs: Vital Signs Temperature 98 F 07/11/19 06:00 Pulse Rate 87 07/11/19 06:00 Respiratory Rate 20 07/11/19 06:00 Blood Pressure 116/61 07/11/19 06:00 O2 Sat by Pulse Oximetry (%) 94 L 07/10/19 20:49 Cardiovascular: Yes: S1, S2 Respiratory: Yes: Diminished, On Nasal O2, Rales Gastrointestinal: Yes: Normal Bowel Sounds, Soft. No: Tenderness Labs: CBC, BMP 07/11/19 05:20 INR, PTT INR 1.29 (0.83-1.09) H 07/10/19 17:15 Problem List - Problems (1) Pericardial effusion Assessment/Plan: Repeat echo to asses if still large consider--window? cardio consult Code(s): I31.3 - PERICARDIAL EFFUSION (NONINFLAMMATORY) (2) CHF (congestive heart failure) Assessment/Plan: - follow up cardiology consult - continue with o2 via NC 3L - Low dose lasix -ct of chest to asses effusions Code(s): I50.9 - HEART FAILURE, UNSPECIFIED (3) Weakness Assessment/Plan: -as above -follow labs Code(s): R53.1 - WEAKNESS (4) COPD (chronic obstructive pulmonary disease) Assessment/Plan: nebs pulm Code(s): J44.9 - CHRONIC OBSTRUCTIVE PULMONARY DISEASE, UNSPECIFIED Qualifiers: Chronic bronchitis type: unspecified (5) Thrombocytopenia Assessment/Plan: maybe due to hepato-splenomegaly/cirrhosis monitor hem Code(s): D69.6 - THROMBOCYTOPENIA, UNSPECIFIED
--- NOTE | 2019-07-11 10:43 | EKG ---
Test Reason : Blood Pressure : / mmHG Vent. Rate : 102 BPM Atrial Rate : 102 BPM P-R Int : 140 ms QRS Dur : 132 ms QT Int : 358 ms P-R-T Axes : 058 -66 086 degrees QTc Int : 466 ms SINUS TACHYCARDIA POSSIBLE LEFT ATRIAL ENLARGEMENT RIGHT BUNDLE BRANCH BLOCK LEFT ANTERIOR FASCICULAR BLOCK BIFASCICULAR BLOCK POSSIBLE LATERAL INFARCT (CITED ON OR BEFORE 27-JUN-2019) INFERIOR INFARCT , AGE UNDETERMINED ABNORMAL ECG WHEN COMPARED WITH ECG OF 27-JUN-2019 14:10, NO SIGNIFICANT CHANGE WAS FOUND Confirmed by JEAN CLAUDE SUTTON, PATRICA ([id number]) on 07/11/2019 10:42:53 AM Referred By: Confirmed By:PATRICA SILVERIO MD
--- NOTE | 2019-07-11 11:29 | CON.CARD ---
Consult Consult Specialty:: Cardiology Referred by:: Medicine Reason for Consultation:: pericardial effusion, CHF - History of Present Illness Chief Complaint: shortness of breath, weakness History of Present Illness: 78F h/o anemia, thrombocytopenia, pericardial effusion, HTN, HLD p/w weakness, dyspnea for the last two days. Didn't improve with breathing treatments, saw Dr. Adorno in the office and was sent to ER, O2 sat was 75%. Sees Dr. Diaz for cardio. No chest pain, palps, edema. Has had abdominal swelling not sure how long and short of breath with walking. - Past Medical History CRUISE DIRECTOR: Yes: Vertigo Cardio/Vascular: Yes: CAD (had cardiac cath with a single completely occluded artery ( per patient)), HTN, Hyperlipdemia, [place], Other (AAA 4.4cm) 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 ?) Musculoskeletal: Yes: Osteoarthritis Endocrine: Yes: Diabetes Mellitus - Past Surgical History Past Surgical History: Yes: Appendectomy (during cholecystectomy ?), Carotid Endarterectomy (left), Cataract Removal, Cholecystectomy, Colonoscopy, Hernia Repair (Umbilical), Tonsillectomy, Upper Endoscopy - Alcohol/Substance Use Hx Alcohol Use: Yes (socially in past) History of Substance Use: reports: None - Smoking History Smoking history: Never smoked Have you smoked in the past 12 months: No If you are a former smoker, when did you quit?: 14 yrs- 2002 - Social History Usual Living Arrangement: With Spouse () ADL: Independent 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 History of Recent Travel: No Home Medications - Allergies Allergies/Adverse Reactions: Allergies Allergy/AdvReac Type Severity Reaction Status Date / Time No Known Drug Allergies Allergy Verified 07/10/19 16:39 - Home Medications Home Medications: Ambulatory Orders Ezetimibe/Simvastatin [Vytorin 10-20 mg Tablet] 1 each PO HS 05/03/12 Metoprolol Succinate [Toprol XL -] 25 mg PO HS 05/03/12 Pregabalin [Lyrica] 100 mg PO HS 05/03/12 Cyanocobalamin [Vitamin B12 -] 1,000 mcg PO DAILY 06/18/14 Pantoprazole Sodium [Protonix -] 40 mg PO BID #60 tab 08/14/17 Glyburide 2.5 mg PO BID 06/27/19 Metformin HCl [Glucophage] 500 mg PO DAILY 06/27/19 Tiotropium [place] [Spiriva Respimat] 1 inh IH DAILY 06/29/19 Family Disease History - Family Disease History Family Disease History: [place]: Father (: 80's: asbestos related lung cancer), Other: Mother ( in her 80s "old age". h/o anemia), Brother (1, secondary to obseity complications), Sister (1, : COPD complications), Son ( 1, healthy) Review of Systems - Review of Systems Constitutional: reports: No Symptoms Eyes: reports: No Symptoms HENT: reports: No Symptoms Neck: reports: No Symptoms Cardiovascular: reports: No Symptoms Respiratory: reports: No Symptoms Gastrointestinal: reports: No Symptoms Genitourinary: reports: No Symptoms Musculoskeletal: reports: No Symptoms Integumentary: reports: No Symptoms Neurological: reports: No Symptoms Endocrine: reports: No Symptoms Hematology/Lymphatic: reports: No Symptoms Vital Signs: Vital Signs Temperature 98 F 07/11/19 06:00 Pulse Rate 87 07/11/19 06:00 Respiratory Rate 20 07/11/19 06:00 Blood Pressure 116/61 07/11/19 06:00 O2 Sat by Pulse Oximetry (%) 94 L 07/10/19 20:49 Constitutional: Yes: Well Nourished, No Distress Eyes: Yes: Conjunctiva Clear, EOM Intact HENT: Yes: Atraumatic, Normocephalic Neck: Yes: Supple, Trachea Midline Respiratory: Yes: Regular, Diminished (bases arielle) Gastrointestinal: Yes: Normal Bowel Sounds, Soft Cardiovascular: Yes: Regular Rate and Rhythm JVD: No Heart Sounds: Yes: S1, S2 Extremities: No: Cold Edema: No Integumentary: No: Jaundice Neurological: Yes: Alert, Oriented Psychiatric: No: Agitated - Other Data Labs, Other Data: CBC, BMP 07/11/19 05:20 07/11/19 05:20 INR, PTT INR 1.29 (0.83-1.09) H 07/10/19 17:15 Troponin, BNP 07/10/19 17:15 Troponin I 0.02 B-Natriuretic Peptide 3018.3 H Troponin, BNP 07/10/19 17:15 Troponin I 0.02 B-Natriuretic Peptide 3018.3 H Assessment/Plan EKG: sinus tachy, RBBB, LAFB echo 05/2019 large pericardial effusion > 2 cm, nl EF, La mod dilated, severe MAC , mild MR, mild TR, mod CXR: congestive changes tele: sinus shortness of breath, acute diastolic CHF exacerbation, COPD - echo pending - h/o pericardial effusion, nl EF, mod - pulm consulted - CT chest pending - BNP elevated, congestion on CXR - cont IV lasix, monitor lytes, Cr, daily weights - monitoring on tele pericardial effusion - history of moderate pericardial effusion without clinical tamponade - normal ESR, TSH, SAADIA and no thoracic mass or other pathology per Dr. Diaz - case was reviewed with CTS and interventional cardiology in the past - window/ pericardiocentesis were deferred given thrombocytopenia - no signs of clinical tamponade here - repeat echo pending DM - manage per primary HLD - cont home meds HTN - cont metoprolol
[2019-07-11] MEDS: PANTOPRAZOLE 40 MG TABLET (FP) PO SCH ×2 (11:43→22:25)
[2019-07-11] MEDS: CYANOCOBALAMIN 1,000 MCG TABLET (FP) PO SCH (11:43)
[2019-07-11] MEDS: TIOTROPIUM BROMIDE 2.5 MCG (SPIRIVA) RESPIMAT INHALER IH SCH (11:44)
--- NOTE | 2019-07-11 12:29 | PN ---
Progress Note (short form) - Note Progress Note: PULMONARY CONSULTATION DICTATED 07/11/18 IMP ACUTE ON CHRONIC HYPOXEMEIC RESPIRATORY FAILURE ACUTE ON CHRONIC CHF COPD O2 DEPENDENT PERICARDIAL EFFUSION DM HTN THROMBOCYTOPENIA PLAN IV LASIX O2 TO MAINTAIN O2 SAT 90% OR GREATER INHALED BRONCHODILATORS DAILY WTS CHEST CT ECHO MONITOR PT CT HEMATOLOGY EVALUATION DR SMITH Problem List - Problems (1) Acute on chronic respiratory failure with hypoxemia Code(s): J96.21 - ACUTE AND CHRONIC RESPIRATORY FAILURE WITH HYPOXIA (2) CHF (congestive heart failure) Code(s): I50.9 - HEART FAILURE, UNSPECIFIED (3) Pericardial effusion Code(s): I31.3 - PERICARDIAL EFFUSION (NONINFLAMMATORY) (4) SOB (shortness of breath) Code(s): R06.02 - SHORTNESS OF BREATH (5) Weakness Code(s): R53.1 - WEAKNESS (6) Diabetes Code(s): E11.9 - TYPE 2 DIABETES MELLITUS WITHOUT COMPLICATIONS Qualifiers: Diabetes mellitus type: type 2 (7) HTN (hypertension) Code(s): I10 - ESSENTIAL (PRIMARY) HYPERTENSION Qualifiers: Hypertension type: essential hypertension Qualified Code(s): I10 - Essential (primary) hypertension (8) Thrombocytopenia Code(s): D69.6 - THROMBOCYTOPENIA, UNSPECIFIED (9) CHF (congestive heart failure) Code(s): I50.9 - HEART FAILURE, UNSPECIFIED (10) Acute on chronic respiratory failure with hypoxemia Code(s): J96.21 - ACUTE AND CHRONIC RESPIRATORY FAILURE WITH HYPOXIA
[2019-07-11] MEDS ORDERED: ALBUTEROL SO4 0.083% IH SOL 2.5 MG/3 ML VIAL.NEB. NEB PRN (12:30)
--- NOTE | 2019-07-11 13:18 | ECHO ---
Name: OSCAR REINIER Exam:Adult Echocardiogram Study Date: 07/11/2019 10:14 AM Age: 78 yrs Reason For Study: Pericardial Effusion C./W PRIOR STUDY Height: 67 in Weight: 198 lb BSA: 2.0 m2 MMode/2D Measurements & Calculations IVSd: 1.2 cm Ao root diam: 2.6 cm LVIDd: 6.0 cm LA dimension: 4.2 cm LVIDs: 4.7 cm LVPWd: 1.2 cm EDV(Teich): 183.4 ml LVOT diam: 2.0 cm ESV(Teich): 101.2 ml LAV (MOD-bp): 93.0 ml Doppler Measurements & Calculations MV E max nigel: 105.1 cm/sec Ao V2 max: 309.1 cm/sec MV A max nigel: 125.4 cm/sec Ao max P.5 mmHg MV E/A: 0.84 Ao V2 mean: 221.1 cm/sec MV dec time: 0.17 sec Ao mean P.1 mmHg Ao V2 VTI: 68.5 cm LUIS(I,D): 0.75 cm2 LUIS(V,D): 0.83 cm2 LV V1 max P.7 mmHg MR max nigel: 548.4 cm/sec LV V1 mean P.3 mmHg MR max P.5 mmHg LV V1 max: 82.6 cm/sec LV V1 mean: 52.2 cm/sec LV V1 VTI: 16.5 cm SV(LVOT): 51.3 ml TR max nigel: 291.7 cm/sec TR max P.1 mmHg Med Peak E' Nigel: 9.1 cm/sec Med E/e': 11.6 Lat Peak E' Nigel: 7.7 cm/sec Lat E/e': 13.7 Procedure A two-dimensional transthoracic echocardiogram with color flow and Doppler was performed. Left Ventricle The left ventricular size, thickness and function are normal. The left ventricular ejection fraction is normal. E/A reversal consistent with but not diagnostic of poor LV compliance. The left ventricular w all motion is normal. Right Ventricle The right ventricle is normal in size and function. Atria The left atrium is mildly dilated. The right atrium is mildly dilated. Mitral Valve There is mild mitral valve thickening. There is no mitral valve stenosis. There is mild mitral regurg itation. Tricuspid Valve There is mild tricuspid valve thickening. There is no tricuspid stenosis. There is severe tricuspid regurgitation. Right ventricular systolic pressure is elevated at 40-50mmHg. Aortic Valve The aortic valve is not well visualized. There is moderate aortic valve thickening. There is moderate aortic sclerosis.;. No hemodynamically significant valvular aortic stenosis. Moderate aortic regurgitation. Pericardium/Pleura Large pericardial effusion (>2 cm). The echo/Doppler findings are inconclusive for cardiac tamponade. Interpretation Summary Clinical correlation is recommended. The left ventricular size, thickness and function are normal The left ventricular ejection fraction is normal. The left ventricular wall motion is normal. Large pericardial effusion (>2 cm) The left atrium is mildly dilated. The right atrium is mildly dilated. There is severe tricuspid regurgitation. Right ventricular systolic pressure is elevated at 40-50mmHg. E/A reversal consistent with but not diagnostic of poor LV compliance There is moderate aortic valve thickening. There is moderate aortic sclerosis.; Moderate aortic regurgitation. The echo/Doppler findings are inconclusive for cardiac tamponade. Clinical correlation is recommended. MD Rodolfo Salvador 07/11/2019 01:17 PM
--- NOTE | 2019-07-11 15:40 | CONS ---
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 Admitted to [facility] with increasing shortness of breath and generalized weakness. Patient states the past couple of days has started developing generalized weakness. She started noticing increasing shortness of breath and dyspnea on exertion. Denied any chest pain, nausea, vomiting, or diaphoresis. Apparently , she ran out of her albuterol at home. She went to see Dr. Reed yesterday and was noted to be hypoxic with an O2 saturation of 75% and transferred to [facility] ER. In the ER, she had a chest x-ray performed showed pulmonary vascular congestion. She was evaluated by Cardiology earlier today and started on Lasix also, and she was started on inhaled bronchodilators. 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 REVIEW OF SYSTEMS: Positive orthopnea, positive dyspnea, positive weakness. No chest pain, no palpitations, no nausea, no vomiting, no lower extremity edema. CURRENT MEDICATIONS: Include Lasix 20 mg b.i.d., Lyrica, Spiriva 1 inhalation daily, DuoNeb, metoprolol, Zetia, Lipitor, NovoLog, Protonix, and vitamin B12. PHYSICAL EXAMINATION: General: Patient is a well-developed, well-nourished female awake, alert currently in no acute distress. Vital Signs: She is currently afebrile. Blood pressure is 116/61, respiratory rate is 20, O2 saturation is 94% on 3 L. HEENT: Normocephalic, atraumatic. Neck: Supple. Heart: Regular S1, S2. Chest: Diminished breath sounds bilaterally. A few bibasilar crackles. Abdomen: Soft. Bowel sounds are positive. Extremities: No cyanosis or edema. LABORATORIES: BUN is 9, creatinine is 0.9. BNP is 3018. WBCs 4.2, hemoglobin 10.8, hematocrit 35.8 with a platelet count of 60,000. Chest x-ray: Congestion bilaterally. Bibasilar atelectasis, and cardiomegaly. IMPRESSION: Acute on chronic hypoxemic respiratory failure secondary to: 1. Acute on chronic congestive heart failure. 2. Chronic obstructive pulmonary disease O2 dependent with exacerbation. 3. Pericardial effusion. 4. Aortic stenosis. 5. Diabetes. 6. Hypertension. 7. Thrombocytopenia. PLAN: IV Lasix. Supplemental O2. Inhaled bronchodilators. Daily weights. CT scan of the chest. Echocardiogram. CECILIA SMITH M.D. [id number] MTDD
[2019-07-11] MEDS: ALBUTEROL SO4 0.083% IH SOL 2.5 MG/3 ML VIAL.NEB. NEB SCH ×2 (15:55→20:28)
[2019-07-11] MEDS: FUROSEMIDE 40 MG/4 ML INJECTABLE VIAL IVPUSH SCH (19:09)
[2019-07-11] MEDS ORDERED: LIDOCAINE 5% TOPICAL PATCH TP ONE (20:38)
[2019-07-11] MEDS: LIDOCAINE 5% TOPICAL PATCH TP SCH (20:53)
[2019-07-11] MEDS ORDERED: LIDOCAINE PATCH REMOVAL MC SCH (22:00)
[2019-07-11] MEDS: metoPROLOL SUCCINATE 25 MG TAB.SR.24H (FP) PO SCH (22:25)
[2019-07-11] MEDS: PREGABALIN 50 MG CAPSULE PO SCH (22:25)
[2019-07-11] MEDS: EZETIMIBE 10 MG TABLET (FP) PO SCH (22:26)
[2019-07-11] MEDS: ATORVASTATIN CA 10 MG TABLET (FP) PO SCH (22:26)
[2019-07-12] MEDS: INSULIN SLIDING SCALE (NOVOLOG) 1 VIAL SQ SCH ×3 (06:25→16:24)
[2019-07-12] MEDS: FUROSEMIDE 40 MG/4 ML INJECTABLE VIAL IVPUSH SCH ×2 (06:27→15:00)
[2019-07-12 06:42] LABS: BASO % 0.8 % (0-2.0); EOS % 2.8 % (0-4.5); HEMATOCRIT 33.8 % (32.4-45.2); HEMOGLOBIN 10.3 GM/dL (10.7-15.3); MCH 31.4 pg (25.7-33.7); MCHC 30.6 g/dl (32.0-36.0); MEAN CELL VOLUME 102.5 fl (80-96); MEAN PLT VOLUME 7.5 fl (7.5-11.1); MONO % 11.1 % (3.8-10.2); NEUT % 67.3 % (42.8-82.8); PLATELET COUNT 50 K/MM3 (134-434); RDW 19.8 % (11.6-15.6); WHITE BLOOD COUNT 2.6 K/mm3 (4.0-10.0)
[2019-07-12 07:10] LABS: ALBUMIN 3.2 g/dl (3.4-5.0); BILIRUBIN,TOTAL 0.6 mg/dL (0.2-1); BLOOD UREA NITROGEN 11.8 mg/dL (7-18); CALCIUM 7.9 mg/dL (8.5-10.1); POTASSIUM 4.1 mmol/L (3.5-5.1); TOT PROT 6.1 g/dl (6.4-8.2)
[2019-07-12] MEDS: ALBUTEROL SO4 0.083% IH SOL 2.5 MG/3 ML VIAL.NEB. NEB SCH ×4 (08:24→21:00)
--- NOTE | 2019-07-12 10:16 | PN ---
Progress Note (short form) - Note Progress Note: s: no cp palps dizzy; sob better o: Vital Signs Period Temp Pulse Resp BP Sys/Rider Pulse Ox Last 24 Hr 97.9 F-98.3 F 75-90 20-20 98-115/46-62 90 Constitutional: Yes: Well Nourished, No Distress Eyes: Yes: Conjunctiva Clear, EOM Intact HENT: Yes: Atraumatic, Normocephalic Neck: Yes: Supple, Trachea Midline Respiratory: Yes: Regular, Diminished (bases arielle) Gastrointestinal: Yes: Normal Bowel Sounds, Soft Cardiovascular: Yes: Regular Rate and Rhythm JVD: No Heart Sounds: Yes: S1, S2 Extremities: No: Cold Edema: No Integumentary: No: Jaundice Neurological: Yes: Alert, Oriented Psychiatric: No: Agitated Current Medications Generic Name Dose Route Start Last Admin Trade Name Freq PRN Reason Stop Dose Admin Albuterol Sulfate 1 amp 07/11/19 16:00 07/12/19 08:24 Ventolin 0.083% Nebulizer Soln - NEB 1 amp RQID KRIS Administration Albuterol Sulfate 1 amp 07/11/19 12:30 Ventolin 0.083% Nebulizer Soln - NEB Q4H PRN SHORT OF BREATH/WHEEZING Atorvastatin Calcium 10 mg 07/10/19 22:00 07/11/19 22:26 Lipitor - PO 10 mg HS KRIS Administration Cyanocobalamin 1,000 mcg 07/11/19 10:00 07/11/19 11:43 Vitamin B12 - PO 1,000 mcg DAILY KRIS Administration Ezetimibe 10 mg 07/10/19 22:00 07/11/19 22:26 Zetia - PO 10 mg HS KRIS Administration Furosemide 20 mg 07/11/19 14:00 07/12/19 06:27 Lasix Injection - IVPUSH 20 mg BID@0600,1400 KRIS Administration Insulin Aspart 1 vial 07/11/19 07:00 07/12/19 06:25 Novolog Vial Sliding Scale - SQ Not Given TIDAC [facility] Protocol Lidocaine 1 patch 07/11/19 21:00 07/11/19 20:53 Lidoderm Patch - TP 1 patch DAILY@2100 KRIS Administration Metoprolol Succinate 25 mg 07/10/19 22:00 07/11/19 22:25 Toprol Xl - PO 25 mg HS KRIS Administration Miscellaneous 1 each 07/12/19 09:00 Lidoderm Patch Removal MC DAILY@0900 KRIS Pantoprazole Sodium 40 mg 07/10/19 22:00 07/11/19 22:25 Protonix - PO 40 mg BID KRIS Administration Pregabalin 100 mg 07/10/19 22:00 07/11/19 22:25 Lyrica - PO 100 mg HS KRIS Administration Tiotropium [place] 2 puff 07/11/19 10:00 07/11/19 11:44 Spiriva Respimat IH 2 puff DAILY KRIS Administration CBC, BMP 07/12/19 05:20 07/12/19 05:20 Assessment/Plan EKG: sinus tachy, RBBB, LAFB echo 05/2019 large pericardial effusion > 2 cm, nl EF, La mod dilated, severe MAC , mild MR, mild TR, mod echo 06/2019: nl lv/rv, carito, mod ar, sev tr, rvsp 40-50, large peric eff CXR: congestive changes tele: sinus shortness of breath, acute diastolic CHF exacerbation, COPD - repeat echo reviewed, pericardial effusion is moderate, no signs tamponade. - pulm consulted - CT chest pending - BNP elevated, congestion on CXR - cont IV lasix, monitor lytes, Cr, daily weights - monitoring on tele pericardial effusion - history of moderate pericardial effusion without clinical tamponade - normal ESR, TSH, SAADIA and no thoracic mass or other pathology per Dr. Diaz - case was reviewed with CTS and interventional cardiology in the past - window/ pericardiocentesis were deferred given thrombocytopenia - no signs of clinical tamponade here - repeat echo reviewed, pericardial effusion is moderate, no signs tamponade. DM - manage per primary HLD - cont home meds HTN - cont metoprolol
[2019-07-12] MEDS: PANTOPRAZOLE 40 MG TABLET (FP) PO SCH ×2 (10:47→21:58)
[2019-07-12] MEDS: CYANOCOBALAMIN 1,000 MCG TABLET (FP) PO SCH (10:47)
[2019-07-12] MEDS: TIOTROPIUM BROMIDE 2.5 MCG (SPIRIVA) RESPIMAT INHALER IH SCH (10:48)
[2019-07-12] MEDS: LIDOCAINE PATCH REMOVAL MC SCH (10:48)
--- NOTE | 2019-07-12 11:09 | PN ---
Progress Note, Physician History of Present Illness: pulmonary alert,feeling better,less dyspneic - Current Medication List Current Medications: Active Medications Albuterol Sulfate (Ventolin 0.083% Nebulizer Soln -) 1 amp NEB RQID [facility] Last Admin: 07/12/19 08:24 Dose: 1 amp Albuterol Sulfate (Ventolin 0.083% Nebulizer Soln -) 1 amp NEB Q4H PRN PRN Reason: SHORT OF BREATH/WHEEZING Atorvastatin Calcium (Lipitor -) 10 mg PO [facility] Last Admin: 07/11/19 22:26 Dose: 10 mg Cyanocobalamin (Vitamin B12 -) 1,000 mcg PO DAILY [facility] Last Admin: 07/12/19 10:47 Dose: 1,000 mcg Ezetimibe (Zetia -) 10 mg PO [facility] Last Admin: 07/11/19 22:26 Dose: 10 mg Furosemide (Lasix Injection -) 20 mg IVPUSH BID@0600,1400 [facility] Last Admin: 07/12/19 06:27 Dose: 20 mg Insulin Aspart (Novolog Vial Sliding Scale -) 1 vial SQ TIDAC [facility]; Protocol Last Admin: 07/12/19 06:25 Dose: Not Given Lidocaine (Lidoderm Patch -) 1 patch TP DAILY@2100 [facility] Last Admin: 07/11/19 20:53 Dose: 1 patch Metoprolol Succinate (Toprol Xl -) 25 mg PO [facility] Last Admin: 07/11/19 22:25 Dose: 25 mg Miscellaneous (Lidoderm Patch Removal) 1 each MC DAILY@0900 [facility] Last Admin: 07/12/19 10:48 Dose: 1 each Pantoprazole Sodium (Protonix -) 40 mg PO BID [facility] Last Admin: 07/12/19 10:47 Dose: 40 mg Pregabalin (Lyrica -) 100 mg PO [facility] Last Admin: 07/11/19 22:25 Dose: 100 mg Tiotropium [place] (Spiriva Respimat) 2 puff IH DAILY [facility] Last Admin: 07/12/19 10:48 Dose: 2 puff - Objective Vital Signs: Vital Signs Temperature 97.9 F 07/12/19 05:00 Pulse Rate 75 07/12/19 05:00 Respiratory Rate 20 07/12/19 05:00 Blood Pressure 104/62 07/12/19 05:00 O2 Sat by Pulse Oximetry (%) 90 L 07/11/19 21:00 Constitutional: Yes: Well Nourished, Calm Eyes: Yes: WNL HENT: Yes: WNL Neck: Yes: WNL Cardiovascular: Yes: Regular Rate and Rhythm, S1, S2 Respiratory: Yes: Diminished Gastrointestinal: Yes: Normal Bowel Sounds, Soft Extremities: Yes: WNL Edema: No Labs: CBC, BMP 07/12/19 05:20 07/12/19 05:20 INR, PTT INR 1.29 (0.83-1.09) H 07/10/19 17:15 - ....Imaging Other: Report Reviewed (echo large pericardial effusion,pulmonary htn) Problem List - Problems (1) Acute on chronic respiratory failure with hypoxemia Code(s): J96.21 - ACUTE AND CHRONIC RESPIRATORY FAILURE WITH HYPOXIA (2) CHF (congestive heart failure) Code(s): I50.9 - HEART FAILURE, UNSPECIFIED (3) Pericardial effusion Code(s): I31.3 - PERICARDIAL EFFUSION (NONINFLAMMATORY) (4) SOB (shortness of breath) Code(s): R06.02 - SHORTNESS OF BREATH (5) Weakness Code(s): R53.1 - WEAKNESS (6) Diabetes Code(s): E11.9 - TYPE 2 DIABETES MELLITUS WITHOUT COMPLICATIONS Qualifiers: Diabetes mellitus type: type 2 (7) HTN (hypertension) Code(s): I10 - ESSENTIAL (PRIMARY) HYPERTENSION Qualifiers: Hypertension type: essential hypertension Qualified Code(s): I10 - Essential (primary) hypertension (8) Thrombocytopenia Code(s): D69.6 - THROMBOCYTOPENIA, UNSPECIFIED (9) CHF (congestive heart failure) Code(s): I50.9 - HEART FAILURE, UNSPECIFIED (10) Acute on chronic respiratory failure with hypoxemia Code(s): J96.21 - ACUTE AND CHRONIC RESPIRATORY FAILURE WITH HYPOXIA Assessment/Plan IMP ACUTE ON CHRONIC HYPOXEMEIC RESPIRATORY FAILURE ACUTE ON CHRONIC CHF COPD O2 DEPENDENT PERICARDIAL EFFUSION DM HTN THROMBOCYTOPENIA PLAN IV LASIX O2 TO MAINTAIN O2 SAT 90% OR GREATER INHALED BRONCHODILATORS DAILY WTS MONITOR PT CT HEMATOLOGY EVALUATION THORACIC SURGERY EVALUATION DR SMITH Problem List - Problems (1) Acute on chronic respiratory failure with hypoxemia Code(s): J96.21 - ACUTE AND CHRONIC RESPIRATORY FAILURE WITH HYPOXIA (2) CHF (congestive heart failure) Code(s): I50.9 - HEART FAILURE, UNSPECIFIED (3) Pericardial effusion Code(s): I31.3 - PERICARDIAL EFFUSION (NONINFLAMMATORY) (4) SOB (shortness of breath) Code(s): R06.02 - SHORTNESS OF BREATH (5) Weakness Code(s): R53.1 - WEAKNESS (6) Diabetes Code(s): E11.9 - TYPE 2 DIABETES MELLITUS WITHOUT COMPLICATIONS Qualifiers: Diabetes mellitus type: type 2 (7) HTN (hypertension) Code(s): I10 - ESSENTIAL (PRIMARY) HYPERTENSION Qualifiers: Hypertension type: essential hypertension Qualified Code(s): I10 - Essential (primary) hypertension (8) Thrombocytopenia Code(s): D69.6 - THROMBOCYTOPENIA, UNSPECIFIED (9) CHF (congestive heart failure) Code(s): I50.9 - HEART FAILURE, UNSPECIFIED (10) Acute on chronic respiratory failure with hypoxemia Code(s): J96.21 - ACUTE AND CHRONIC RESPIRATORY FAILURE WITH HYPOXIA
--- NOTE | 2019-07-12 11:46 | CONSULT ---
Consultation: REQUESTING PROVIDER: Dr. Nelson CONSULT REQUEST: We have been asked to medically evaluate this patient for thrombocytopenia HISTORY OF PRESENT ILLNESS: This is a 78 year old female with a history of liver cirrhosis, COPD on 2L home O2, pericardial effusion, hypertension, hyperlipidemia, DM, CHF came to the hospital for 1 day of shortness of breath and weakness. She was admitted for exacerbation of COPD. Patient currently is on 4L nasal cannula and reports complete resolution of her symptoms. She has a chronic pancytopenia with platelet counts between 50-100 attributed to chronic liver disease. Previous flow cytometry and FISH analysis did not reveal myelodysplastia. REVIEW OF SYSTEMS: CONSTITUTIONAL: Absent: fever, chills, diaphoresis, generalized weakness, malaise, loss of appetite, weight change HEENT: Absent: rhinorrhea, nasal congestion, throat pain, throat swelling, difficulty swallowing, mouth swelling, ear pain, eye pain, visual changes CARDIOVASCULAR: Absent: chest pain, syncope, palpitations, irregular heart rate, lightheadedness , peripheral edema RESPIRATORY: Absent: cough, shortness of breath, dyspnea with exertion, orthopnea, wheezing, stridor, hemoptysis GASTROINTESTINAL: Absent: abdominal pain, abdominal distension, nausea, vomiting, diarrhea, constipation, melena, hematochezia GENITOURINARY: Absent: dysuria, frequency, urgency, hesitancy, hematuria, flank pain, genital pain MUSCULOSKELETAL: Absent: myalgia, arthralgia, joint swelling, back pain, neck pain SKIN: Absent: rash, itching, pallor HEMATOLOGIC/IMMUNOLOGIC: Absent: easy bleeding, easy bruising, lymphadenopathy, frequent infections ENDOCRINE: Absent: unexplained weight gain, unexplained weight loss, heat intolerance, cold intolerance NEUROLOGIC: Absent: headache, focal weakness or paresthesias, dizziness, unsteady gait, seizure, mental status changes, bladder or bowel incontinence PSYCHIATRIC: Absent: anxiety, depression, suicidal or homicidal ideation, hallucinations. PHYSICAL EXAMINATION Vital Signs - 24 hr 07/11/19 07/11/19 07/11/19 14:56 17:00 21:00 Temperature 97.9 F 98.1 F 98.3 F Pulse Rate 75 82 90 Respiratory 20 20 20 Rate Blood Pressure 115/46 L 106/56 L 110/53 L O2 Sat by Pulse 90 L Oximetry (%) 07/12/19 07/12/19 01:00 05:00 Temperature 98.2 F 97.9 F Pulse Rate 82 75 Respiratory 20 20 Rate Blood Pressure 98/50 L 104/62 O2 Sat by Pulse Oximetry (%) GENERAL: A&Ox3, no acute distress EYES: PERRLA, EOMI ENT: Moist mucus membranes NECK: No JVD LUNGS: CTA, no wheezes HEART: RRR, systolic murmur appreciated on exam ABDOMEN: Soft, nontender, BS present MUSCULOSKELETAL: No CVA Tenderness EXTREMITIES: 2+ pulses, no edema. NEUROLOGICAL: Cranial nerves II-XII intact. Laboratory Results - last 24 hr 07/11/19 07/11/19 07/12/19 12:54 18:45 05:20 WBC 2.6 L RBC 3.30 L Hgb 10.3 L Hct 33.8 MCV 102.5 H MCH 31.4 MCHC 30.6 L RDW 19.8 H Plt Count 50 L MPV 7.5 Absolute Neuts (auto) 1.8 Neutrophils % 67.3 Lymphocytes % 18.0 D Monocytes % 11.1 H Eosinophils % 2.8 D Basophils % 0.8 Nucleated RBC % 0 Sodium Potassium Chloride Carbon Dioxide Anion Gap BUN Creatinine Est GFR (CKD-EPI)AfAm Est GFR (CKD-EPI)NonAf POC Glucometer 122 134 Random Glucose Calcium Total Bilirubin AST ALT Alkaline Phosphatase Total Protein Albumin 07/12/19 07/12/19 05:20 06:24 WBC RBC Hgb Hct MCV MCH MCHC RDW Plt Count MPV Absolute Neuts (auto) Neutrophils % Lymphocytes % Monocytes % Eosinophils % Basophils % Nucleated RBC % Sodium 143 Potassium 4.1 Chloride 109 H Carbon Dioxide 31 Anion Gap 3 L BUN 11.8 Creatinine 1.0 Est GFR (CKD-EPI)AfAm 62.05 Est GFR (CKD-EPI)NonAf 53.54 POC Glucometer 139 Random Glucose 147 H Calcium 7.9 L Total Bilirubin 0.6 AST 17 ALT 12 L Alkaline Phosphatase 61 Total Protein 6.1 L Albumin 3.2 L Active Medications Generic Name Dose Route Start Last Admin Trade Name Freq PRN Reason Stop Dose Admin Albuterol Sulfate 1 amp 07/11/19 16:00 07/12/19 08:24 Ventolin 0.083% Nebulizer Soln - NEB 1 amp RQID KRIS Administration Albuterol Sulfate 1 amp 07/11/19 12:30 Ventolin 0.083% Nebulizer Soln - NEB Q4H PRN SHORT OF BREATH/WHEEZING Atorvastatin Calcium 10 mg 07/10/19 22:00 07/11/19 22:26 Lipitor - PO 10 mg HS KRIS Administration Cyanocobalamin 1,000 mcg 07/11/19 10:00 07/12/19 10:47 Vitamin B12 - PO 1,000 mcg DAILY KRIS Administration Ezetimibe 10 mg 07/10/19 22:00 07/11/19 22:26 Zetia - PO 10 mg HS KRIS Administration Furosemide 20 mg 07/11/19 14:00 07/12/19 06:27 Lasix Injection - IVPUSH 20 mg BID@0600,1400 KRIS Administration Insulin Aspart 1 vial 07/11/19 07:00 07/12/19 06:25 Novolog Vial Sliding Scale - SQ Not Given TIDAC [facility] Protocol Lidocaine 1 patch 07/11/19 21:00 07/11/19 20:53 Lidoderm Patch - TP 1 patch DAILY@2100 KRIS Administration Metoprolol Succinate 25 mg 07/10/19 22:00 07/11/19 22:25 Toprol Xl - PO 25 mg HS KRIS Administration Miscellaneous 1 each 07/12/19 09:00 07/12/19 10:48 Lidoderm Patch Removal MC 1 each DAILY@0900 KRIS Administration Pantoprazole Sodium 40 mg 07/10/19 22:00 07/12/19 10:47 Protonix - PO 40 mg BID KRIS Administration Pregabalin 100 mg 07/10/19 22:00 07/11/19 22:25 Lyrica - PO 100 mg HS KRIS Administration Tiotropium [place] 2 puff 07/11/19 10:00 07/12/19 10:48 Spiriva Respimat IH 2 puff DAILY KRIS Administration ASSESSMENT/PLAN: 78 year old female with a history of liver cirrhosis, COPD on 2L home O2, pericardial effusion, hypertension, hyperlipidemia, DM, CHF came to the hospital for 1 day of shortness of breath and weakness and admitted for COPD exacerbation #Anemia #Leukopenia #Thrombocytopenia #Leukopenia/Thrombocytopenia: this is chronic and has been evaluated before with flow/fish and cytogenetics. Patient is negative for myelodysplasia and JAK2 /BCR;ABL negative, no B or T cell lymphoproliferative disorders were found -likely still related to cardiac/hepatic cirrhosis and congestion/sequestration -monitor CBC -normal transfusion thresholds Timo Hutton D.O., PGY-[address] Cunha Visit type - Emergency Visit Emergency Visit: No - New Patient This patient is new to me today: Yes Date on this admission: 07/12/19 - Critical Care Critical Care patient: No ATTENDING PHYSICIAN STATEMENT I saw and evaluated the patient. I reviewed the resident's note and discussed the case with the resident. I agree with the resident's findings and plan as documented. SUBJECTIVE: OBJECTIVE: ASSESSMENT AND PLAN:
--- NOTE | 2019-07-12 13:55 | PN ---
Progress Note, Physician Chief Complaint: patient seen and examined and says she is feeling better - Current Medication List Current Medications: Active Medications Albuterol Sulfate (Ventolin 0.083% Nebulizer Soln -) 1 amp NEB RQID [facility] Last Admin: 07/12/19 08:24 Dose: 1 amp Albuterol Sulfate (Ventolin 0.083% Nebulizer Soln -) 1 amp NEB Q4H PRN PRN Reason: SHORT OF BREATH/WHEEZING Atorvastatin Calcium (Lipitor -) 10 mg PO [facility] Last Admin: 07/11/19 22:26 Dose: 10 mg Cyanocobalamin (Vitamin B12 -) 1,000 mcg PO DAILY [facility] Last Admin: 07/12/19 10:47 Dose: 1,000 mcg Ezetimibe (Zetia -) 10 mg PO [facility] Last Admin: 07/11/19 22:26 Dose: 10 mg Furosemide (Lasix Injection -) 20 mg IVPUSH BID@0600,1400 [facility] Last Admin: 07/12/19 06:27 Dose: 20 mg Insulin Aspart (Novolog Vial Sliding Scale -) 1 vial SQ TIDAC [facility]; Protocol Last Admin: 07/12/19 13:35 Dose: Not Given Lidocaine (Lidoderm Patch -) 1 patch TP DAILY@2100 [facility] Last Admin: 07/11/19 20:53 Dose: 1 patch Metoprolol Succinate (Toprol Xl -) 25 mg PO [facility] Last Admin: 07/11/19 22:25 Dose: 25 mg Miscellaneous (Lidoderm Patch Removal) 1 each MC DAILY@0900 [facility] Last Admin: 07/12/19 10:48 Dose: 1 each Pantoprazole Sodium (Protonix -) 40 mg PO BID [facility] Last Admin: 07/12/19 10:47 Dose: 40 mg Pregabalin (Lyrica -) 100 mg PO [facility] Last Admin: 07/11/19 22:25 Dose: 100 mg Tiotropium [place] (Spiriva Respimat) 2 puff IH DAILY [facility] Last Admin: 07/12/19 10:48 Dose: 2 puff - Objective Vital Signs: Vital Signs Temperature 97.9 F 07/12/19 05:00 Pulse Rate 92 H 07/12/19 09:00 Respiratory Rate 22 H 07/12/19 09:00 Blood Pressure 118/85 07/12/19 09:00 O2 Sat by Pulse Oximetry (%) 90 L 07/11/19 21:00 Constitutional: Yes: Calm Cardiovascular: Yes: Regular Rate and Rhythm, S1, S2 Respiratory: Yes: Diminished Gastrointestinal: Yes: Normal Bowel Sounds, Soft Neurological: Yes: Alert Labs: CBC, BMP 07/12/19 05:20 07/12/19 05:20 INR, PTT INR 1.29 (0.83-1.09) H 07/10/19 17:15 Problem List - Problems (1) CHF (congestive heart failure) Assessment/Plan: pericardial effusion CTS consult iv lasix Code(s): I50.9 - HEART FAILURE, UNSPECIFIED (2) Pericardial effusion Assessment/Plan: CTS consult Code(s): I31.3 - PERICARDIAL EFFUSION (NONINFLAMMATORY)
[2019-07-12] MEDS ORDERED: oxyCODONE HCL 5 MG TABLET PO PRN (14:11)
[2019-07-12] MEDS ORDERED: ACETAMINOPHEN 325 MG TABLET (FP) PO PRN (14:12)
[2019-07-12] MEDS: PREGABALIN 50 MG CAPSULE PO SCH (21:57)
[2019-07-12] MEDS: ATORVASTATIN CA 10 MG TABLET (FP) PO SCH (21:57)
[2019-07-12] MEDS: metoPROLOL SUCCINATE 25 MG TAB.SR.24H (FP) PO SCH (21:57)
[2019-07-12] MEDS: EZETIMIBE 10 MG TABLET (FP) PO SCH (21:58)
[2019-07-12] MEDS: LIDOCAINE 5% TOPICAL PATCH TP SCH (22:03)
--- NOTE | 2019-07-12 23:44 | PN ---
Teaching Attending Note Name of Resident: Timo Hutton ATTENDING PHYSICIAN STATEMENT I saw and evaluated the patient. I reviewed the resident's note and discussed the case with the resident. I agree with the resident's findings and plan as documented. ASSESSMENT AND PLAN: 78 year old female with a history of liver cirrhosis, COPD on 2L home O2, pericardial effusion, hypertension, hyperlipidemia, DM, CHF came to the hospital for 1 day of shortness of breath and weakness and admitted for COPD exacerbation #Anemia #Leukopenia #Thrombocytopenia #Leukopenia/Thrombocytopenia: this is chronic and has been evaluated before with flow/fish and cytogenetics. Patient is negative for myelodysplasia and JAK2 /BCR;ABL negative, no B or T cell lymphoproliferative disorders were found -likely still related to cardiac/hepatic cirrhosis and congestion/sequestration -monitor CBC small , stable pericardial effusin being moniored
[2019-07-13] MEDS: FUROSEMIDE 40 MG/4 ML INJECTABLE VIAL IVPUSH SCH ×2 (06:29→14:24)
[2019-07-13] MEDS: INSULIN SLIDING SCALE (NOVOLOG) 1 VIAL SQ SCH ×3 (06:29→17:05)
[2019-07-13] MEDS: ALBUTEROL SO4 0.083% IH SOL 2.5 MG/3 ML VIAL.NEB. NEB SCH ×4 (07:40→20:25)
[2019-07-13 08:33] LABS: ALBUMIN 3.2 g/dl (3.4-5.0); BILIRUBIN,TOTAL 0.6 mg/dL (0.2-1); BLOOD UREA NITROGEN 9.7 mg/dL (7-18); CALCIUM 8.1 mg/dL (8.5-10.1); CREATININE 0.8 mg/dL (0.55-1.3); POTASSIUM 4.1 mmol/L (3.5-5.1)
--- NOTE | 2019-07-13 09:35 | PN ---
Progress Note, Physician Chief Complaint: Personally reviewed echo. Look stable- moderate. No tamponade. TELE: NSR History of Present Illness: she is feeling "better" - Current Medication List Current Medications: Active Medications Acetaminophen (Tylenol -) 325 mg PO Q8H PRN PRN Reason: PAIN LEVEL 7 - 10 Albuterol Sulfate (Ventolin 0.083% Nebulizer Soln -) 1 amp NEB RQID [facility] Last Admin: 07/13/19 07:40 Dose: 1 amp Albuterol Sulfate (Ventolin 0.083% Nebulizer Soln -) 1 amp NEB Q4H PRN PRN Reason: SHORT OF BREATH/WHEEZING Atorvastatin Calcium (Lipitor -) 10 mg PO [facility] Last Admin: 07/12/19 21:57 Dose: 10 mg Cyanocobalamin (Vitamin B12 -) 1,000 mcg PO DAILY [facility] Last Admin: 07/12/19 10:47 Dose: 1,000 mcg Ezetimibe (Zetia -) 10 mg PO [facility] Last Admin: 07/12/19 21:58 Dose: 10 mg Furosemide (Lasix Injection -) 20 mg IVPUSH BID@0600,1400 [facility] Last Admin: 07/13/19 06:29 Dose: 20 mg Insulin Aspart (Novolog Vial Sliding Scale -) 1 vial SQ TIDAC [facility]; Protocol Last Admin: 07/13/19 06:29 Dose: Not Given Lidocaine (Lidoderm Patch -) 1 patch TP DAILY@2100 [facility] Last Admin: 07/12/19 22:03 Dose: 1 patch Metoprolol Succinate (Toprol Xl -) 25 mg PO [facility] Last Admin: 07/12/19 21:57 Dose: 25 mg Miscellaneous (Lidoderm Patch Removal) 1 each MC DAILY@0900 [facility] Last Admin: 07/12/19 10:48 Dose: 1 each Oxycodone HCl (Roxicodone -) 5 mg PO Q8H PRN PRN Reason: PAIN LEVEL 7 - 10 Pantoprazole Sodium (Protonix -) 40 mg PO BID [facility] Last Admin: 07/12/19 21:58 Dose: 40 mg Pregabalin (Lyrica -) 100 mg PO [facility] Last Admin: 07/12/19 21:57 Dose: 100 mg Tiotropium [place] (Spiriva Respimat) 2 puff IH DAILY [facility] Last Admin: 07/12/19 10:48 Dose: 2 puff - Objective Vital Signs: Vital Signs Temperature 97.9 F 07/13/19 06:00 Pulse Rate 80 07/13/19 06:00 Respiratory Rate 20 07/13/19 06:00 Blood Pressure 112/56 L 07/13/19 06:00 O2 Sat by Pulse Oximetry (%) 94 L 07/12/19 22:00 Constitutional: Yes: No Distress Cardiovascular: Yes: Regular Rate and Rhythm Respiratory: Yes: Other (decreased breath sounds, b/l; no active wheezing) Gastrointestinal: Yes: Soft Edema: No Neurological: Yes: Alert Labs: CBC, BMP 07/12/19 05:20 07/13/19 06:05 INR, PTT INR 1.29 (0.83-1.09) H 07/10/19 17:15 Assessment/Plan Shortness of breath, acute diastolic CHF exacerbation, COPD: - repeat echo reviewed, pericardial effusion is moderate, no signs tamponade, stable - pulm consulted - BNP elevated, congestion on CXR - cont IV lasix, monitor lytes, Cr, daily weights. Would switch to PO Lasix tomorrow. - monitoring on tele Pericardial effusion: chronic, unchanged. - history of moderate pericardial effusion without clinical tamponade - normal ESR, TSH, SAADIA and no thoracic mass - case was reviewed with CTS and interventional cardiology in the past - window/ pericardiocentesis were deferred given thrombocytopenia and clinical stability. - no signs of clinical tamponade here - repeat echo reviewed, pericardial effusion is moderate, no signs tamponade. DM: - manage per primary HLD: - cont home meds HTN: - cont metoprolol AAA: -4 to 4.4 cm on various imaging modalities previously. -Repeat Abd US
[2019-07-13] MEDS ORDERED: PT OWN MED DRAWER 7, Y5N ONE (09:54)
[2019-07-13] MEDS: LIDOCAINE PATCH REMOVAL MC SCH (10:19)
[2019-07-13] MEDS: TIOTROPIUM BROMIDE 2.5 MCG (SPIRIVA) RESPIMAT INHALER IH SCH (10:19)
[2019-07-13] MEDS: CYANOCOBALAMIN 1,000 MCG TABLET (FP) PO SCH (10:19)
[2019-07-13] MEDS: PANTOPRAZOLE 40 MG TABLET (FP) PO SCH ×2 (10:19→21:11)
--- NOTE | 2019-07-13 11:41 | PN ---
Progress Note, Physician History of Present Illness: pulmonary alert,no distress,-cp,less sob,hypoxic on ra - Current Medication List Current Medications: Active Medications Acetaminophen (Tylenol -) 325 mg PO Q8H PRN PRN Reason: PAIN LEVEL 7 - 10 Albuterol Sulfate (Ventolin 0.083% Nebulizer Soln -) 1 amp NEB RQID [facility] Last Admin: 07/13/19 07:40 Dose: 1 amp Albuterol Sulfate (Ventolin 0.083% Nebulizer Soln -) 1 amp NEB Q4H PRN PRN Reason: SHORT OF BREATH/WHEEZING Atorvastatin Calcium (Lipitor -) 10 mg PO [facility] Last Admin: 07/12/19 21:57 Dose: 10 mg Cyanocobalamin (Vitamin B12 -) 1,000 mcg PO DAILY [facility] Last Admin: 07/13/19 10:19 Dose: 1,000 mcg Ezetimibe (Zetia -) 10 mg PO [facility] Last Admin: 07/12/19 21:58 Dose: 10 mg Furosemide (Lasix Injection -) 20 mg IVPUSH BID@0600,1400 [facility] Last Admin: 07/13/19 06:29 Dose: 20 mg Insulin Aspart (Novolog Vial Sliding Scale -) 1 vial SQ TIDAC [facility]; Protocol Last Admin: 07/13/19 06:29 Dose: Not Given Lidocaine (Lidoderm Patch -) 1 patch TP DAILY@2100 [facility] Last Admin: 07/12/19 22:03 Dose: 1 patch Metoprolol Succinate (Toprol Xl -) 25 mg PO [facility] Last Admin: 07/12/19 21:57 Dose: 25 mg Miscellaneous (Lidoderm Patch Removal) 1 each MC DAILY@0900 [facility] Last Admin: 07/13/19 10:19 Dose: 1 each Oxycodone HCl (Roxicodone -) 5 mg PO Q8H PRN PRN Reason: PAIN LEVEL 7 - 10 Pantoprazole Sodium (Protonix -) 40 mg PO BID [facility] Last Admin: 07/13/19 10:19 Dose: 40 mg Pregabalin (Lyrica -) 100 mg PO [facility] Last Admin: 07/12/19 21:57 Dose: 100 mg Tiotropium [place] (Spiriva Respimat) 2 puff IH DAILY [facility] Last Admin: 07/13/19 10:19 Dose: 2 puff - Objective Vital Signs: Vital Signs Temperature 98.1 F 07/13/19 10:00 Pulse Rate 79 07/13/19 10:00 Respiratory Rate 20 07/13/19 10:00 Blood Pressure 130/64 07/13/19 10:00 O2 Sat by Pulse Oximetry (%) 94 L 07/13/19 09:00 Constitutional: Yes: Well Nourished, Calm Eyes: Yes: WNL HENT: Yes: WNL Neck: Yes: WNL Cardiovascular: Yes: Regular Rate and Rhythm, S1, S2 Respiratory: Yes: Diminished Gastrointestinal: Yes: Normal Bowel Sounds, Soft Extremities: Yes: WNL Edema: No Labs: Problem List - Problems (1) Acute on chronic respiratory failure with hypoxemia Code(s): J96.21 - ACUTE AND CHRONIC RESPIRATORY FAILURE WITH HYPOXIA (2) CHF (congestive heart failure) Code(s): I50.9 - HEART FAILURE, UNSPECIFIED (3) Pericardial effusion Code(s): I31.3 - PERICARDIAL EFFUSION (NONINFLAMMATORY) (4) SOB (shortness of breath) Code(s): R06.02 - SHORTNESS OF BREATH (5) Weakness Code(s): R53.1 - WEAKNESS (6) Diabetes Code(s): E11.9 - TYPE 2 DIABETES MELLITUS WITHOUT COMPLICATIONS Qualifiers: Diabetes mellitus type: type 2 (7) HTN (hypertension) Code(s): I10 - ESSENTIAL (PRIMARY) HYPERTENSION Qualifiers: Hypertension type: essential hypertension Qualified Code(s): I10 - Essential (primary) hypertension (8) Thrombocytopenia Code(s): D69.6 - THROMBOCYTOPENIA, UNSPECIFIED (9) CHF (congestive heart failure) Code(s): I50.9 - HEART FAILURE, UNSPECIFIED (10) Acute on chronic respiratory failure with hypoxemia Code(s): J96.21 - ACUTE AND CHRONIC RESPIRATORY FAILURE WITH HYPOXIA Assessment/Plan IMP ACUTE ON CHRONIC HYPOXEMIC RESPIRATORY FAILURE ACUTE ON CHRONIC CHF COPD O2 DEPENDENT PERICARDIAL EFFUSION STABLE DM HTN THROMBOCYTOPENIA PLAN IV LASIX O2 TO MAINTAIN O2 SAT 90% OR GREATER INHALED BRONCHODILATORS DAILY WTS MONITOR PT CT DR SMITH Problem List - Problems (1) Acute on chronic respiratory failure with hypoxemia Code(s): J96.21 - ACUTE AND CHRONIC RESPIRATORY FAILURE WITH HYPOXIA (2) CHF (congestive heart failure) Code(s): I50.9 - HEART FAILURE, UNSPECIFIED (3) Pericardial effusion Code(s): I31.3 - PERICARDIAL EFFUSION (NONINFLAMMATORY) (4) SOB (shortness of breath) Code(s): R06.02 - SHORTNESS OF BREATH (5) Weakness Code(s): R53.1 - WEAKNESS (6) Diabetes Code(s): E11.9 - TYPE 2 DIABETES MELLITUS WITHOUT COMPLICATIONS Qualifiers: Diabetes mellitus type: type 2 (7) HTN (hypertension) Code(s): I10 - ESSENTIAL (PRIMARY) HYPERTENSION Qualifiers: Hypertension type: essential hypertension Qualified Code(s): I10 - Essential (primary) hypertension (8) Thrombocytopenia Code(s): D69.6 - THROMBOCYTOPENIA, UNSPECIFIED (9) CHF (congestive heart failure) Code(s): I50.9 - HEART FAILURE, UNSPECIFIED (10) Acute on chronic respiratory failure with hypoxemia Code(s): J96.21 - ACUTE AND CHRONIC RESPIRATORY FAILURE WITH HYPOXIA
--- NOTE | 2019-07-13 12:30 | PN ---
Progress Note, Physician Chief Complaint: patient seen and examined feeling better says breathing is better - Current Medication List Current Medications: Active Medications Acetaminophen (Tylenol -) 325 mg PO Q8H PRN PRN Reason: PAIN LEVEL 7 - 10 Albuterol Sulfate (Ventolin 0.083% Nebulizer Soln -) 1 amp NEB RQID [facility] Last Admin: 07/13/19 11:58 Dose: 1 amp Albuterol Sulfate (Ventolin 0.083% Nebulizer Soln -) 1 amp NEB Q4H PRN PRN Reason: SHORT OF BREATH/WHEEZING Atorvastatin Calcium (Lipitor -) 10 mg PO [facility] Last Admin: 07/12/19 21:57 Dose: 10 mg Cyanocobalamin (Vitamin B12 -) 1,000 mcg PO DAILY [facility] Last Admin: 07/13/19 10:19 Dose: 1,000 mcg Ezetimibe (Zetia -) 10 mg PO [facility] Last Admin: 07/12/19 21:58 Dose: 10 mg Furosemide (Lasix Injection -) 20 mg IVPUSH BID@0600,1400 [facility] Last Admin: 07/13/19 06:29 Dose: 20 mg Insulin Aspart (Novolog Vial Sliding Scale -) 1 vial SQ TIDAC [facility]; Protocol Last Admin: 07/13/19 06:29 Dose: Not Given Lidocaine (Lidoderm Patch -) 1 patch TP DAILY@2100 [facility] Last Admin: 07/12/19 22:03 Dose: 1 patch Metoprolol Succinate (Toprol Xl -) 25 mg PO [facility] Last Admin: 07/12/19 21:57 Dose: 25 mg Miscellaneous (Lidoderm Patch Removal) 1 each MC DAILY@0900 [facility] Last Admin: 07/13/19 10:19 Dose: 1 each Oxycodone HCl (Roxicodone -) 5 mg PO Q8H PRN PRN Reason: PAIN LEVEL 7 - 10 Pantoprazole Sodium (Protonix -) 40 mg PO BID [facility] Last Admin: 07/13/19 10:19 Dose: 40 mg Pregabalin (Lyrica -) 100 mg PO [facility] Last Admin: 07/12/19 21:57 Dose: 100 mg Tiotropium [place] (Spiriva Respimat) 2 puff IH DAILY [facility] Last Admin: 07/13/19 10:19 Dose: 2 puff - Objective Vital Signs: Vital Signs Temperature 98.1 F 07/13/19 10:00 Pulse Rate 79 07/13/19 10:00 Respiratory Rate 20 07/13/19 10:00 Blood Pressure 130/64 07/13/19 10:00 O2 Sat by Pulse Oximetry (%) 94 L 07/13/19 09:00 Constitutional: Yes: Calm Cardiovascular: Yes: Regular Rate and Rhythm, S1, S2 Respiratory: Yes: Diminished Gastrointestinal: Yes: Normal Bowel Sounds, Soft Neurological: Yes: Alert, Oriented Labs: CBC, BMP 07/12/19 05:20 07/13/19 06:05 INR, PTT INR 1.29 (0.83-1.09) H 07/10/19 17:15 Problem List - Problems (1) CHF (congestive heart failure) Assessment/Plan: iv lasix Code(s): I50.9 - HEART FAILURE, UNSPECIFIED (2) Pericardial effusion Assessment/Plan: echo noted Code(s): I31.3 - PERICARDIAL EFFUSION (NONINFLAMMATORY) (3) Acute on chronic respiratory failure with hypoxemia Assessment/Plan: oxygen to keep sat > 90% bronchodilators Code(s): J96.21 - ACUTE AND CHRONIC RESPIRATORY FAILURE WITH HYPOXIA
--- NOTE | 2019-07-13 16:02 | CONSULT ---
Consult Consult Specialty:: Thoracic Surgery Referred by:: Medicine Reason for Consultation:: Pleural and pericardial effusion - History of Present Illness Chief Complaint: dyspnea History of Present Illness: 78F with MMP (COPD-oxygen dependent, cirrhosis, carotid stenosis s/p endarterectomy, HTN, hyperlipidemia, DM, p/w worsening SOB and hypoxia, sent from office to ED. 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) 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 ?) Musculoskeletal: Yes: Osteoarthritis Endocrine: Yes: Diabetes Mellitus - Past Surgical History Past Surgical History: Yes: Appendectomy (during cholecystectomy ?), Carotid Endarterectomy (left), Cataract Removal, Cholecystectomy, Colonoscopy, Hernia Repair (Umbilical), Tonsillectomy, Upper Endoscopy - Alcohol/Substance Use Hx Alcohol Use: Yes (socially in past) History of Substance Use: reports: None - Smoking History Smoking history: Never smoked Have you smoked in the past 12 months: No If you are a former smoker, when did you quit?: 14 yrs- 2002 - Social History Usual Living Arrangement: With Spouse () ADL: Independent 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 History of Recent Travel: No Home Medications - Allergies Allergies/Adverse Reactions: Allergies Allergy/AdvReac Type Severity Reaction Status Date / Time No Known Drug Allergies Allergy Verified 07/10/19 16:39 - Home Medications Home Medications: Ambulatory Orders Ezetimibe/Simvastatin [Vytorin 10-20 mg Tablet] 1 each PO HS 05/03/12 Metoprolol Succinate [Toprol XL -] 25 mg PO HS 05/03/12 Pregabalin [Lyrica] 100 mg PO HS 05/03/12 Cyanocobalamin [Vitamin B12 -] 1,000 mcg PO DAILY 06/18/14 Pantoprazole Sodium [Protonix -] 40 mg PO BID #60 tab 08/14/17 Glyburide 2.5 mg PO BID 06/27/19 Metformin HCl [Glucophage] 500 mg PO DAILY 06/27/19 Tiotropium [place] [Spiriva Respimat] 1 inh IH DAILY 06/29/19 Family Disease History - Family Disease History Family Disease History: [place]: Father (: 80's: asbestos related lung cancer), Other: Mother ( in her 80s "old age". h/o anemia), Brother (1, secondary to obseity complications), Sister (1, : COPD complications), Son ( 1, healthy) Review of Systems - Review of Systems Constitutional: reports: Weakness Eyes: denies: No Symptoms, Blind Spots, Blurred Vision, Double Vision, Eye Pain , Floaters, Photophobia, Recent Change in Vision, Other HENT: denies: No Symptoms, Difficult Swallowing, Ear Discharge, Ear Pain, Epistaxis, Gingival Bleeding, Hearing Loss, Mouth Swelling, Nasal Congestion, Ocular Prosthesis, Throat Pain, Toothache, Ringing in Ears, Other Neck: denies: No Symptoms, Decreased ROM, Lumps, Pain on Movement, Stiffness, Swollen Glands, Tenderness, Other Cardiovascular: denies: No Symptoms, Chest Pain, Edema, Palpitations, Shortness of Breath, Other Respiratory: reports: SOB Gastrointestinal: denies: No Symptoms, Abdominal Pain, Bloating, Constipation, Diarrhea, Dysphagia, Indigestion, Melena, Nausea, Rectal Bleeding, Vomiting, Vomiting Blood, Other Genitourinary: denies: No Symptoms, Burning, Discharge, Dysuria, Flank Pain, Frequency, Hematuria, Incontinence, Lesions, Menses, Pain, Testicular Mass, Testicular Pain, Testicular Swelling, Urgency, Vaginal Bleeding, Other Breasts: denies: No Symptoms Reported, See HPI, Breast Implants, Discharge from Nipple, Lumps, Pain, Skin Changes, Other Musculoskeletal: denies: No Symptoms, Back Pain, Crepitus, Decreased ROM, Extremity Pain, Joint Pain, Joint Swelling, Muscle Pain, Muscle Cramps, Muscle Weakness, Other Integumentary: denies: No Symptoms, Blister, Bruising, Change in Color, Eczema, Erythema, Incision, Lesions, Lump, Pallor, Pruritis, Rash, Wound, Other Neurological: denies: No Symptoms, Change in LOC, Change in Speech, Confusion, Dizziness, Headache, Incoordination, Numbness, Parasthesia, Pre-Existing Deficit , Seizure, Syncope, Tremors, Unsteady Gait, Weakness, Other Endocrine: denies: No Symptoms, Excessive Sweating, Flushing, Increased Hunger, Increased Thirst, Intolerance to Cold, Intolerance to Heat, Unexplained Weight Gain, Unexplained Weight Loss, Other Hematology/Lymphatic: denies: No Symptoms, Easily Bruised, Excessive Bleeding, Swollen Glands, Other Psychiatric: denies: No Symptoms, Altered Sleep Pattern, Anxiety, Depression, Hallucinations, Panic, Paranoia, Suicidal, Other Physical Exam Vital Signs: Vital Signs Temperature 98.1 F 07/13/19 14:00 Pulse Rate 89 07/13/19 14:00 Respiratory Rate 16 07/13/19 14:00 Blood Pressure 100/54 L 07/13/19 14:00 O2 Sat by Pulse Oximetry (%) 94 L 07/13/19 09:00 Constitutional: Yes: No Distress Eyes: Yes: WNL HENT: Yes: WNL Neck: Yes: WNL Cardiovascular: Yes: Regular Rate and Rhythm Respiratory: Yes: Other (decreased breath sounds right) Gastrointestinal: Yes: WNL Labs: CBC, BMP 07/12/19 05:20 07/13/19 06:05 Imaging - Results Cat Scan: Report Reviewed, Image Reviewed Problem List - Problems (1) Acute on chronic respiratory failure with hypoxemia Code(s): J96.21 - ACUTE AND CHRONIC RESPIRATORY FAILURE WITH HYPOXIA (2) CHF (congestive heart failure) Code(s): I50.9 - HEART FAILURE, UNSPECIFIED (3) Pericardial effusion Code(s): I31.3 - PERICARDIAL EFFUSION (NONINFLAMMATORY) (4) HLD (hyperlipidemia) Code(s): E78.5 - HYPERLIPIDEMIA, UNSPECIFIED (5) Anemia Code(s): D64.9 - ANEMIA, UNSPECIFIED Qualifiers: Anemia type: unspecified type Qualified Code(s): D64.9 - Anemia, unspecified (6) CAD (coronary artery disease) Code(s): I25.10 - ATHSCL HEART DISEASE OF [place] CORONARY ARTERY W/O ANG PCTRS Qualifiers: Coronary Disease-Associated Artery/Lesion type: [place] artery [place] vs. transplanted heart: [place] heart Associated angina: without angina Qualified Code(s): I25.10 - Atherosclerotic heart disease of [place] coronary artery without angina pectoris (7) Chronic diastolic heart failure Code(s): I50.32 - CHRONIC DIASTOLIC (CONGESTIVE) HEART FAILURE (8) Cirrhosis of liver Code(s): K74.60 - UNSPECIFIED CIRRHOSIS OF LIVER (9) Diabetes Code(s): E11.9 - TYPE 2 DIABETES MELLITUS WITHOUT COMPLICATIONS Qualifiers: Diabetes mellitus type: type 2 Assessment/Plan 78F with cirrhosis, heart disease, COPD that is oxygen dependent p/w worsening of dypsnea but is improving now with medical therapy. She has some atelectasis of her RLL secondary to a pleural effusion. I do not see cytology results in this system. Her pericardial effusion appears stable and possibly smaller. I recommend a thoracentesis of the right pleural effusion with cytology and a repeat CT scan (PE protocol). Since improving this is not urgent.
[2019-07-13] MEDS: PREGABALIN 50 MG CAPSULE PO SCH (21:10)
[2019-07-13] MEDS: LIDOCAINE 5% TOPICAL PATCH TP SCH (21:10)
[2019-07-13] MEDS: metoPROLOL SUCCINATE 25 MG TAB.SR.24H (FP) PO SCH (21:11)
[2019-07-13] MEDS: EZETIMIBE 10 MG TABLET (FP) PO SCH (21:12)
[2019-07-13] MEDS: ATORVASTATIN CA 10 MG TABLET (FP) PO SCH (21:12)
[2019-07-14] MEDS: INSULIN SLIDING SCALE (NOVOLOG) 1 VIAL SQ SCH ×3 (06:13→17:19)
[2019-07-14] MEDS: FUROSEMIDE 40 MG/4 ML INJECTABLE VIAL IVPUSH SCH ×2 (06:17→14:34)
[2019-07-14] MEDS: ALBUTEROL SO4 0.083% IH SOL 2.5 MG/3 ML VIAL.NEB. NEB SCH ×4 (07:45→20:15)
[2019-07-14 08:43] LABS: ALBUMIN 3.3 g/dl (3.4-5.0); BILIRUBIN,TOTAL 0.7 mg/dL (0.2-1); BLOOD UREA NITROGEN 7.8 mg/dL (7-18); CALCIUM 7.8 mg/dL (8.5-10.1); CREATININE 0.8 mg/dL (0.55-1.3); POTASSIUM 3.7 mmol/L (3.5-5.1); TOT PROT 6.2 g/dl (6.4-8.2)
[2019-07-14] MEDS: TIOTROPIUM BROMIDE 2.5 MCG (SPIRIVA) RESPIMAT INHALER IH SCH (10:10)
[2019-07-14] MEDS: LIDOCAINE PATCH REMOVAL MC SCH (10:10)
[2019-07-14] MEDS: CYANOCOBALAMIN 1,000 MCG TABLET (FP) PO SCH (10:10)
[2019-07-14] MEDS: PANTOPRAZOLE 40 MG TABLET (FP) PO SCH ×2 (10:10→23:04)
--- NOTE | 2019-07-14 11:08 | PN ---
Progress Note (short form) - Note Progress Note: s: no cp palps dizzy; sob better o: Vital Signs Period Temp Pulse Resp BP Sys/Rider Pulse Ox Last 24 Hr 97.3 F-98.1 F 77-89 16-20 100-115/52-67 92-92 Constitutional: Yes: Well Nourished, No Distress Eyes: Yes: Conjunctiva Clear, EOM Intact HENT: Yes: Atraumatic, Normocephalic Neck: Yes: Supple, Trachea Midline Respiratory: Yes: Regular, Diminished (bases arielle) Gastrointestinal: Yes: Normal Bowel Sounds, Soft Cardiovascular: Yes: Regular Rate and Rhythm JVD: No Heart Sounds: Yes: S1, S2 Extremities: No: Cold Edema: No Integumentary: No: Jaundice Neurological: Yes: Alert, Oriented Psychiatric: No: Agitated Current Medications Generic Name Dose Route Start Last Admin Trade Name Freq PRN Reason Stop Dose Admin Acetaminophen 325 mg 07/12/19 14:12 Tylenol - PO Q8H PRN PAIN LEVEL 7 - 10 Albuterol Sulfate 1 amp 07/11/19 16:00 07/14/19 07:45 Ventolin 0.083% Nebulizer Soln - NEB 1 amp RQID [facility] Administration Albuterol Sulfate 1 amp 07/11/19 12:30 Ventolin 0.083% Nebulizer Soln - NEB Q4H PRN SHORT OF BREATH/WHEEZING Atorvastatin Calcium 10 mg 07/10/19 22:00 07/13/19 21:12 Lipitor - PO 10 mg HS [facility] Administration Cyanocobalamin 1,000 mcg 07/11/19 10:00 07/14/19 10:10 Vitamin B12 - PO 1,000 mcg DAILY [facility] Administration Ezetimibe 10 mg 07/10/19 22:00 07/13/19 21:12 Zetia - PO 10 mg HS [facility] Administration Furosemide 20 mg 07/11/19 14:00 07/14/19 06:17 Lasix Injection - IVPUSH 20 mg BID@0600,1400 [facility] Administration Insulin Aspart 1 vial 07/11/19 07:00 07/14/19 06:13 Novolog Vial Sliding Scale - SQ Not Given TIDAC [facility] Protocol Lidocaine 1 patch 07/11/19 21:00 07/13/19 21:10 Lidoderm Patch - TP 1 patch DAILY@2100 [facility] Administration Metoprolol Succinate 25 mg 07/10/19 22:00 07/13/19 21:11 Toprol Xl - PO 25 mg HS [facility] Administration Miscellaneous 1 each 07/12/19 09:00 07/14/19 10:10 Lidoderm Patch Removal [facility] 1 each DAILY@0900 [facility] Administration Oxycodone HCl 5 mg 07/12/19 14:11 Roxicodone - PO Q8H PRN PAIN LEVEL 7 - 10 Pantoprazole Sodium 40 mg 07/10/19 22:00 07/14/19 10:10 Protonix - PO 40 mg BID [facility] Administration Pregabalin 100 mg 07/10/19 22:00 07/13/19 21:10 Lyrica - PO 100 mg HS [facility] Administration Tiotropium [place] 2 puff 07/11/19 10:00 07/14/19 10:10 Spiriva Respimat IH 2 puff DAILY [facility] Administration CBC, BMP 07/12/19 05:20 07/14/19 07:14 Assessment/Plan EKG: sinus tachy, RBBB, LAFB echo 05/2019 large pericardial effusion > 2 cm, nl EF, La mod dilated, severe MAC , mild MR, mild TR, mod echo 06/2019: nl lv/rv, carito, mod ar, sev tr, rvsp 40-50, large peric eff CXR: congestive changes tele: sinus shortness of breath, acute diastolic CHF exacerbation, COPD - repeat echo reviewed, pericardial effusion is moderate, no signs tamponade. - pulm and cts following-->rec'd possible pleural eff tap - will change to po lasix now pericardial effusion - history of moderate pericardial effusion without clinical tamponade - normal ESR, TSH, SAADIA and no thoracic mass or other pathology per Dr. Diaz - case was reviewed with CTS and interventional cardiology in the past - window/ pericardiocentesis were deferred given thrombocytopenia - no signs of clinical tamponade here - repeat echo reviewed, pericardial effusion is moderate, no signs tamponade. DM - manage per primary HLD - cont home meds HTN - cont metoprolol
--- NOTE | 2019-07-14 13:26 | PN ---
Progress Note, Physician - Current Medication List Current Medications: Active Medications Acetaminophen (Tylenol -) 325 mg PO Q8H PRN PRN Reason: PAIN LEVEL 7 - 10 Albuterol Sulfate (Ventolin 0.083% Nebulizer Soln -) 1 amp NEB RQID [facility] Last Admin: 07/14/19 11:57 Dose: 1 amp Albuterol Sulfate (Ventolin 0.083% Nebulizer Soln -) 1 amp NEB Q4H PRN PRN Reason: SHORT OF BREATH/WHEEZING Atorvastatin Calcium (Lipitor -) 10 mg PO [facility] Last Admin: 07/13/19 21:12 Dose: 10 mg Cyanocobalamin (Vitamin B12 -) 1,000 mcg PO DAILY [facility] Last Admin: 07/14/19 10:10 Dose: 1,000 mcg Ezetimibe (Zetia -) 10 mg PO [facility] Last Admin: 07/13/19 21:12 Dose: 10 mg Furosemide (Lasix Injection -) 20 mg IVPUSH BID@0600,1400 [facility] Stop: 07/14/19 23:00 Last Admin: 07/14/19 06:17 Dose: 20 mg Furosemide (Lasix -) 40 mg PO BID@0600,1400 [facility] Insulin Aspart (Novolog Vial Sliding Scale -) [facility] Protocol Last Admin: 07/14/19 12:40 Dose: 2 units Lidocaine (Lidoderm Patch -) 1 patch TP DAILY@2100 [facility] Last Admin: 07/13/19 21:10 Dose: 1 patch Metoprolol Succinate (Toprol Xl -) 25 mg PO [facility] Last Admin: 07/13/19 21:11 Dose: 25 mg Miscellaneous (Lidoderm Patch Removal) 1 each MC DAILY@0900 [facility] Last Admin: 07/14/19 10:10 Dose: 1 each Oxycodone HCl (Roxicodone -) 5 mg PO Q8H PRN PRN Reason: PAIN LEVEL 7 - 10 Pantoprazole Sodium (Protonix -) 40 mg PO BID [facility] Last Admin: 07/14/19 10:10 Dose: 40 mg Pregabalin (Lyrica -) 100 mg PO [facility] Last Admin: 07/13/19 21:10 Dose: 100 mg Tiotropium [place] (Spiriva Respimat) 2 puff IH DAILY [facility] Last Admin: 07/14/19 10:10 Dose: 2 puff - Objective Vital Signs: Vital Signs Temperature 98.1 F 07/14/19 09:00 Pulse Rate 77 07/14/19 09:00 Respiratory Rate 20 07/14/19 09:00 Blood Pressure 111/59 L 07/14/19 09:00 O2 Sat by Pulse Oximetry (%) 92 L 07/14/19 09:00 Cardiovascular: Yes: S1, S2 Respiratory: Yes: Regular, CTA Bilaterally, Diminished Gastrointestinal: Yes: Normal Bowel Sounds, Soft Labs: CBC, BMP 07/12/19 05:20 07/14/19 07:14 INR, PTT INR 1.29 (0.83-1.09) H 07/10/19 17:15 Problem List - Problems (1) Pericardial effusion Assessment/Plan: Repeat echo to asses if still large consider--window--TS consult noted cardio consult noted Code(s): I31.3 - PERICARDIAL EFFUSION (NONINFLAMMATORY) (2) CHF (congestive heart failure) Assessment/Plan: - follow up cardiology consult - continue with o2 via NC 3L - Low dose lasix -ct of chest to asses effusions Code(s): I50.9 - HEART FAILURE, UNSPECIFIED (3) Weakness Assessment/Plan: -as above -follow labs Code(s): R53.1 - WEAKNESS (4) COPD (chronic obstructive pulmonary disease) Assessment/Plan: nebs pulm Code(s): J44.9 - CHRONIC OBSTRUCTIVE PULMONARY DISEASE, UNSPECIFIED Qualifiers: Chronic bronchitis type: unspecified (5) Thrombocytopenia Assessment/Plan: maybe due to hepato-splenomegaly/cirrhosis monitor Code(s): D69.6 - THROMBOCYTOPENIA, UNSPECIFIED
--- NOTE | 2019-07-14 14:20 | PN ---
Progress Note (short form) - Note Progress Note: PULMONARY States breathing slightly better today. No chest pain. +nonproductive cough. Vital Signs Period Temp Pulse Resp BP Sys/Rider Pulse Ox Last 24 Hr 97.3 F-98.1 F 77-86 18-20 109-115/52-67 92-92 Gen: NAD at rest Heart: RRR Lung:decreased breath sounds at the bases Abd: soft, nontender Ext: no edema CBC, BMP 07/12/19 05:20 07/14/19 07:14 Active Medications Acetaminophen (Tylenol -) 325 mg PO Q8H PRN PRN Reason: PAIN LEVEL 7 - 10 Albuterol Sulfate (Ventolin 0.083% Nebulizer Soln -) 1 amp NEB RQID [facility] Last Admin: 07/14/19 11:57 Dose: 1 amp Albuterol Sulfate (Ventolin 0.083% Nebulizer Soln -) 1 amp NEB Q4H PRN PRN Reason: SHORT OF BREATH/WHEEZING Atorvastatin Calcium (Lipitor -) 10 mg PO [facility] Last Admin: 07/13/19 21:12 Dose: 10 mg Cyanocobalamin (Vitamin B12 -) 1,000 mcg PO DAILY [facility] Last Admin: 07/14/19 10:10 Dose: 1,000 mcg Ezetimibe (Zetia -) 10 mg PO [facility] Last Admin: 07/13/19 21:12 Dose: 10 mg Furosemide (Lasix Injection -) 20 mg IVPUSH BID@0600,1400 [facility] Stop: 07/14/19 23:00 Last Admin: 07/14/19 06:17 Dose: 20 mg Furosemide (Lasix -) 40 mg PO BID@0600,1400 [facility] Insulin Aspart (Novolog Vial Sliding Scale -) 1 vial SQ TIDAC [facility]; Protocol Last Admin: 07/14/19 12:40 Dose: 2 units Lidocaine (Lidoderm Patch -) 1 patch TP DAILY@2100 [facility] Last Admin: 07/13/19 21:10 Dose: 1 patch Metoprolol Succinate (Toprol Xl -) 25 mg PO [facility] Last Admin: 07/13/19 21:11 Dose: 25 mg Miscellaneous (Lidoderm Patch Removal) 1 each MC DAILY@0900 [facility] Last Admin: 07/14/19 10:10 Dose: 1 each Oxycodone HCl (Roxicodone -) 5 mg PO Q8H PRN PRN Reason: PAIN LEVEL 7 - 10 Pantoprazole Sodium (Protonix -) 40 mg PO BID [facility] Last Admin: 07/14/19 10:10 Dose: 40 mg Pregabalin (Lyrica -) 100 mg PO HS [facility] Last Admin: 07/13/19 21:10 Dose: 100 mg Tiotropium [place] (Spiriva Respimat) 2 puff IH DAILY [facility] Last Admin: 07/14/19 10:10 Dose: 2 puff A/P Acute on Chronic Hypoxic Respiratory Failure Acute on Chronic Diastolic Heart Failure COPD Pericardial Effusion Pleural Effusion Aortic Stenosis Pancytopenia HTN DM - continue lasix - monitor urine output, creatinine - daily weights - O2 to keep SpO2 >90% - inhaled bronchodilators - monitor CBC - DVT prophylaxis
[2019-07-14] MEDS ORDERED: ACETAMINOPHEN 325 MG TABLET (FP) ONE (21:36)
[2019-07-14] MEDS: PREGABALIN 50 MG CAPSULE PO SCH (23:03)
[2019-07-14] MEDS: metoPROLOL SUCCINATE 25 MG TAB.SR.24H (FP) PO SCH (23:03)
[2019-07-14] MEDS: EZETIMIBE 10 MG TABLET (FP) PO SCH (23:03)
[2019-07-14] MEDS: LIDOCAINE 5% TOPICAL PATCH TP SCH (23:04)
[2019-07-14] MEDS: ATORVASTATIN CA 10 MG TABLET (FP) PO SCH (23:04)
[2019-07-15] MEDS: FUROSEMIDE 40 MG TABLET (FP) PO SCH ×2 (06:36→15:00)
[2019-07-15] MEDS: INSULIN SLIDING SCALE (NOVOLOG) 1 VIAL SQ SCH ×2 (06:37→18:51)
[2019-07-15] MEDS: ALBUTEROL SO4 0.083% IH SOL 2.5 MG/3 ML VIAL.NEB. NEB SCH ×4 (07:35→20:39)
[2019-07-15 09:33] LABS: BASO % 0.9 % (0-2.0); EOS % 1.4 % (0-4.5); HEMATOCRIT 34.5 % (32.4-45.2); HEMOGLOBIN 10.6 GM/dL (10.7-15.3); LYMPH % 13.3 % (8-40); MCHC 30.8 g/dl (32.0-36.0); MEAN CELL VOLUME 100.5 fl (80-96); MEAN PLT VOLUME 7.4 fl (7.5-11.1); MONO % 8.5 % (3.8-10.2); NEUT % 75.9 % (42.8-82.8); PLATELET COUNT 42 K/MM3 (134-434); RBC 3.43 M/mm3 (3.60-5.2); RDW 19.4 % (11.6-15.6); WHITE BLOOD COUNT 2.2 K/mm3 (4.0-10.0)
[2019-07-15] MEDS: CYANOCOBALAMIN 1,000 MCG TABLET (FP) PO SCH (10:36)
[2019-07-15] MEDS: PANTOPRAZOLE 40 MG TABLET (FP) PO SCH ×2 (10:36→21:37)
[2019-07-15] MEDS: LIDOCAINE PATCH REMOVAL MC SCH (10:37)
[2019-07-15] MEDS: TIOTROPIUM BROMIDE 2.5 MCG (SPIRIVA) RESPIMAT INHALER IH SCH (10:38)
--- NOTE | 2019-07-15 10:56 | PN ---
Progress Note, Physician - Current Medication List Current Medications: Active Medications Acetaminophen (Tylenol -) 325 mg PO Q8H PRN PRN Reason: PAIN LEVEL 7 - 10 Albuterol Sulfate (Ventolin 0.083% Nebulizer Soln -) 1 amp NEB RQID [facility] Last Admin: 07/15/19 07:35 Dose: 1 amp Albuterol Sulfate (Ventolin 0.083% Nebulizer Soln -) 1 amp NEB Q4H PRN PRN Reason: SHORT OF BREATH/WHEEZING Atorvastatin Calcium (Lipitor -) 10 mg PO [facility] Last Admin: 07/14/19 23:04 Dose: 10 mg Cyanocobalamin (Vitamin B12 -) 1,000 mcg PO DAILY [facility] Last Admin: 07/15/19 10:36 Dose: 1,000 mcg Ezetimibe (Zetia -) 10 mg PO [facility] Last Admin: 07/14/19 23:03 Dose: 10 mg Furosemide (Lasix -) 40 mg PO BID@0600,1400 [facility] Last Admin: 07/15/19 06:36 Dose: 40 mg Insulin Aspart (Novolog Vial Sliding Scale -) [facility]; Protocol Last Admin: 07/15/19 06:37 Dose: Not Given Lidocaine (Lidoderm Patch -) 1 patch TP DAILY@2100 [facility] Last Admin: 07/14/19 23:04 Dose: 1 patch Metoprolol Succinate (Toprol Xl -) 25 mg PO [facility] Last Admin: 07/14/19 23:03 Dose: 25 mg Miscellaneous (Lidoderm Patch Removal) 1 each MC DAILY@0900 [facility] Last Admin: 07/15/19 10:37 Dose: 1 each Oxycodone HCl (Roxicodone -) 5 mg PO Q8H PRN PRN Reason: PAIN LEVEL 7 - 10 Last Admin: 07/15/19 10:36 Dose: 5 mg Pantoprazole Sodium (Protonix -) 40 mg PO BID [facility] Last Admin: 07/15/19 10:36 Dose: 40 mg Pregabalin (Lyrica -) 100 mg PO [facility] Last Admin: 07/14/19 23:03 Dose: 100 mg Tiotropium [place] (Spiriva Respimat) 2 puff IH DAILY [facility] Last Admin: 07/15/19 10:38 Dose: 2 puff - Objective Vital Signs: Vital Signs Temperature 98.2 F 07/15/19 09:17 Pulse Rate 92 H 07/15/19 09:17 Respiratory Rate 21 H 07/15/19 09:17 Blood Pressure 104/61 07/15/19 09:17 O2 Sat by Pulse Oximetry (%) 93 L 07/15/19 08:22 Cardiovascular: Yes: Regular Rate and Rhythm Respiratory: Yes: Regular, CTA Bilaterally Gastrointestinal: Yes: Normal Bowel Sounds, Soft Labs: CBC, BMP 07/15/19 09:10 07/14/19 07:14 INR, PTT INR 1.29 (0.83-1.09) H 07/10/19 17:15 Problem List - Problems (1) Pericardial effusion Assessment/Plan: Repeat echo to asses if still large consider--window--TS consult noted cardio consult noted Code(s): I31.3 - PERICARDIAL EFFUSION (NONINFLAMMATORY) (2) CHF (congestive heart failure) Assessment/Plan: - follow up cardiology consult - continue with o2 via NC 3L - Low dose lasix -ct of chest to asses effusions Code(s): I50.9 - HEART FAILURE, UNSPECIFIED (3) Weakness Assessment/Plan: -as above -follow labs Code(s): R53.1 - WEAKNESS (4) COPD (chronic obstructive pulmonary disease) Assessment/Plan: nebs pulm Code(s): J44.9 - CHRONIC OBSTRUCTIVE PULMONARY DISEASE, UNSPECIFIED Qualifiers: Chronic bronchitis type: unspecified (5) Thrombocytopenia Assessment/Plan: maybe due to hepato-splenomegaly/cirrhosis monitor Code(s): D69.6 - THROMBOCYTOPENIA, UNSPECIFIED
--- NOTE | 2019-07-15 11:00 | PN ---
Progress Note (short form) - Note Progress Note: s: no cp palps dizzy; sob better o: Vital Signs Period Temp Pulse Resp BP Sys/Rider Pulse Ox Last 24 Hr 97.7 F-98.6 F 83-92 20-22 104-130/52-64 90-93 Constitutional: Yes: Well Nourished, No Distress Eyes: Yes: Conjunctiva Clear, EOM Intact HENT: Yes: Atraumatic, Normocephalic Neck: Yes: Supple, Trachea Midline Respiratory: Yes: Regular, Diminished (bases arielle) Gastrointestinal: Yes: Normal Bowel Sounds, Soft Cardiovascular: Yes: Regular Rate and Rhythm JVD: No Heart Sounds: Yes: S1, S2 Extremities: No: Cold Edema: No Integumentary: No: Jaundice Neurological: Yes: Alert, Oriented Psychiatric: No: Agitated Current Medications Generic Name Dose Route Start Last Admin Trade Name Freq PRN Reason Stop Dose Admin Acetaminophen 325 mg 07/12/19 14:12 Tylenol - PO Q8H PRN PAIN LEVEL 7 - 10 Albuterol Sulfate 1 amp 07/11/19 16:00 07/15/19 07:35 Ventolin 0.083% Nebulizer Soln - NEB 1 amp RQID [facility] Administration Albuterol Sulfate 1 amp 07/11/19 12:30 Ventolin 0.083% Nebulizer Soln - NEB Q4H PRN SHORT OF BREATH/WHEEZING Atorvastatin Calcium 10 mg 07/10/19 22:00 07/14/19 23:04 Lipitor - PO 10 mg HS [facility] Administration Cyanocobalamin 1,000 mcg 07/11/19 10:00 07/15/19 10:36 Vitamin B12 - PO 1,000 mcg DAILY [facility] Administration Ezetimibe 10 mg 07/10/19 22:00 07/14/19 23:03 Zetia - PO 10 mg HS [facility] Administration Furosemide 40 mg 07/15/19 06:00 07/15/19 06:36 Lasix - PO 40 mg BID@0600,1400 [facility] Administration Insulin Aspart 1 vial 07/11/19 07:00 07/15/19 06:37 Novolog Vial Sliding Scale - SQ Not Given TIDAC [facility] Protocol Lidocaine 1 patch 07/11/19 21:00 07/14/19 23:04 Lidoderm Patch - TP 1 patch DAILY@2100 [facility] Administration Metoprolol Succinate 25 mg 07/10/19 22:00 07/14/19 23:03 Toprol Xl - PO 25 mg HS [facility] Administration Miscellaneous 1 each 07/12/19 09:00 07/15/19 10:37 Lidoderm Patch Removal MC 1 each DAILY@0900 [facility] Administration Oxycodone HCl 5 mg 07/12/19 14:11 07/15/19 10:36 Roxicodone - PO 5 mg Q8H PRN Administration PAIN LEVEL 7 - 10 Pantoprazole Sodium 40 mg 07/10/19 22:00 07/15/19 10:36 Protonix - PO 40 mg BID [facility] Administration Pregabalin 100 mg 07/10/19 22:00 07/14/19 23:03 Lyrica - PO 100 mg HS [facility] Administration Tiotropium [place] 2 puff 07/11/19 10:00 07/15/19 10:38 Spiriva Respimat IH 2 puff DAILY [facility] Administration Laboratory Last Values WBC 2.2 K/mm3 (4.0-10.0) L 07/15/19 09:10 RBC 3.43 M/mm3 (3.60-5.2) L 07/15/19 09:10 Hgb 10.6 GM/dL (10.7-15.3) L 07/15/19 09:10 Hct 34.5 % (32.4-45.2) 07/15/19 09:10 MCV 100.5 fl (80-96) H 07/15/19 09:10 MCH 31.0 pg (25.7-33.7) 07/15/19 09:10 MCHC 30.8 g/dl (32.0-36.0) L 07/15/19 09:10 RDW 19.4 % (11.6-15.6) H 07/15/19 09:10 Plt Count 42 K/MM3 (134-434) L 07/15/19 09:10 MPV 7.4 fl (7.5-11.1) L 07/15/19 09:10 Absolute Neuts (auto) 1.7 K/mm3 (1.5-8.0) 07/15/19 09:10 Neutrophils % 75.9 % (42.8-82.8) 07/15/19 09:10 Lymphocytes % 13.3 % (8-40) D 07/15/19 09:10 Monocytes % 8.5 % (3.8-10.2) 07/15/19 09:10 Eosinophils % 1.4 % (0-4.5) 07/15/19 09:10 Basophils % 0.9 % (0-2.0) 07/15/19 09:10 Nucleated RBC % 0 % (0-0) 07/15/19 09:10 PT with INR 15.30 SEC (9.7-13.0) H 07/10/19 17:15 INR 1.29 (0.83-1.09) H 07/10/19 17:15 Sodium 142 mmol/L (136-145) 07/14/19 07:14 Potassium 3.7 mmol/L (3.5-5.1) 07/14/19 07:14 Chloride 104 mmol/L (98-107) 07/14/19 07:14 Carbon Dioxide 35 mmol/L (21-32) H 07/14/19 07:14 Anion Gap 4 MMOL/L (8-16) L 07/14/19 07:14 BUN 7.8 mg/dL (7-18) 07/14/19 07:14 Creatinine 0.8 mg/dL (0.55-1.3) 07/14/19 07:14 Est GFR (CKD-EPI)AfAm 81.27 07/14/19 07:14 Est GFR (CKD-EPI)NonAf 70.12 07/14/19 07:14 POC Glucometer 134 UNITS (80-120) 07/15/19 05:58 Random Glucose 138 mg/dL (74-106) H 07/14/19 07:14 Hemoglobin A1c % 4.3 % (4.2-6.3) 07/13/19 06:05 Calcium 7.8 mg/dL (8.5-10.1) L 07/14/19 07:14 Iron 120 ug/dL (50-175) 07/11/19 05:20 TIBC 329 ug/dL (250-450) 07/11/19 05:20 Iron Saturation 36 % (17.5-39) 07/11/19 05:20 Unsaturated IBC 209 ug/dL (200-275) 07/11/19 05:20 Ferritin 528.7 ng/ml (8-388) H 07/11/19 05:20 Total Bilirubin 0.7 mg/dL (0.2-1) 07/14/19 07:14 AST 18 U/L (15-37) 07/14/19 07:14 ALT 11 U/L (13-61) L 07/14/19 07:14 Alkaline Phosphatase 66 U/L (45-117) 07/14/19 07:14 Creatine Kinase 27 U/L (26-192) 07/10/19 17:15 Troponin I 0.02 ng/ml (0.00-0.05) 07/10/19 17:15 B-Natriuretic Peptide 3018.3 pg/ml (5-450) H 07/10/19 17:15 Total Protein 6.2 g/dl (6.4-8.2) L 07/14/19 07:14 Albumin 3.3 g/dl (3.4-5.0) L 07/14/19 07:14 Vitamin B12 1396 pg/ml (193-986) H 07/11/19 05:20 TSH 1.18 uIU/ml (0.358-3.74) 07/11/19 05:20 Assessment/Plan EKG: sinus tachy, RBBB, LAFB echo 05/2019 large pericardial effusion > 2 cm, nl EF, La mod dilated, severe MAC , mild MR, mild TR, mod echo 06/2019: nl lv/rv, carito, mod ar, sev tr, rvsp 40-50, large peric eff CXR: congestive changes tele: sinus shortness of breath, acute diastolic CHF exacerbation, COPD - repeat echo reviewed, pericardial effusion is moderate, no signs tamponade. - pulm and cts following-->rec'd possible pleural eff tap - continue po lasix pericardial effusion - history of moderate pericardial effusion without clinical tamponade - normal ESR, TSH, SAADIA and no thoracic mass or other pathology per Dr. Diaz - case was reviewed with CTS and interventional cardiology in the past - window/ pericardiocentesis were deferred given thrombocytopenia - no signs of clinical tamponade here - repeat echo reviewed, pericardial effusion is moderate, no signs tamponade. DM - manage per primary HLD - cont home meds HTN - cont metoprolol dc tele
--- NOTE | 2019-07-15 13:00 | PN ---
Progress Note (short form) - Note Progress Note: PULMONARY Breathing continues to improve. No chest pain. +nonproductive cough. Vital Signs Period Temp Pulse Resp BP Sys/Rider Pulse Ox Last 24 Hr 97.7 F-98.6 F 83-92 20-22 104-130/52-64 90-93 Intake & Output 07/12/19 07/13/19 07/14/19 07/15/19 23:59 23:59 23:59 23:59 Intake Total 460 1185 390 Balance 460 1185 390 Gen: NAD at rest Heart: RRR Lung:decreased breath sounds at the bases Abd: soft, nontender Ext: no edema CBC, BMP 07/15/19 09:10 07/14/19 07:14 Active Medications Acetaminophen (Tylenol -) 325 mg PO Q8H PRN PRN Reason: PAIN LEVEL 7 - 10 Albuterol Sulfate (Ventolin 0.083% Nebulizer Soln -) 1 amp NEB RQID [facility] Last Admin: 07/15/19 12:17 Dose: 1 amp Albuterol Sulfate (Ventolin 0.083% Nebulizer Soln -) 1 amp NEB Q4H PRN PRN Reason: SHORT OF BREATH/WHEEZING Atorvastatin Calcium (Lipitor -) 10 mg PO [facility] Last Admin: 07/14/19 23:04 Dose: 10 mg Cyanocobalamin (Vitamin B12 -) 1,000 mcg PO DAILY [facility] Last Admin: 07/15/19 10:36 Dose: 1,000 mcg Ezetimibe (Zetia -) 10 mg PO [facility] Last Admin: 07/14/19 23:03 Dose: 10 mg Furosemide (Lasix -) 40 mg PO BID@0600,1400 [facility] Last Admin: 07/15/19 06:36 Dose: 40 mg Insulin Aspart (Novolog Vial Sliding Scale -) 1 vial SQ TIDAC [facility]; Protocol Last Admin: 07/15/19 06:37 Dose: Not Given Lidocaine (Lidoderm Patch -) 1 patch TP DAILY@2100 [facility] Last Admin: 07/14/19 23:04 Dose: 1 patch Metoprolol Succinate (Toprol Xl -) 25 mg PO [facility] Last Admin: 07/14/19 23:03 Dose: 25 mg Miscellaneous (Lidoderm Patch Removal) 1 each MC DAILY@0900 [facility] Last Admin: 07/15/19 10:37 Dose: 1 each Oxycodone HCl (Roxicodone -) 5 mg PO Q8H PRN PRN Reason: PAIN LEVEL 7 - 10 Last Admin: 07/15/19 10:36 Dose: 5 mg Pantoprazole Sodium (Protonix -) 40 mg PO BID [facility] Last Admin: 07/15/19 10:36 Dose: 40 mg Pregabalin (Lyrica -) 100 mg PO HS [facility] Last Admin: 07/14/19 23:03 Dose: 100 mg Tiotropium [place] (Spiriva Respimat) 2 puff IH DAILY [facility] Last Admin: 07/15/19 10:38 Dose: 2 puff A/P Acute on Chronic Hypoxic Respiratory Failure Acute on Chronic Diastolic Heart Failure COPD Pericardial Effusion Pleural Effusion Aortic Stenosis Pancytopenia HTN DM - continue lasix - monitor urine output, creatinine - daily weights - O2 to keep SpO2 >90% - inhaled bronchodilators - monitor CBC - PT eval - DVT prophylaxis
[2019-07-15] MEDS: LIDOCAINE 5% TOPICAL PATCH TP SCH (20:57)
[2019-07-15] MEDS: PREGABALIN 50 MG CAPSULE PO SCH (21:37)
[2019-07-15] MEDS: EZETIMIBE 10 MG TABLET (FP) PO SCH (21:37)
[2019-07-15] MEDS: metoPROLOL SUCCINATE 25 MG TAB.SR.24H (FP) PO SCH (21:37)
[2019-07-15] MEDS: ATORVASTATIN CA 10 MG TABLET (FP) PO SCH (21:37)
[2019-07-16] MEDS: INSULIN SLIDING SCALE (NOVOLOG) 1 VIAL SQ SCH ×3 (06:21→17:42)
[2019-07-16] MEDS: FUROSEMIDE 40 MG TABLET (FP) PO SCH ×2 (06:21→13:01)
[2019-07-16 06:49] LABS: EOS % 2.7 % (0-4.5); HEMATOCRIT 33.7 % (32.4-45.2); HEMOGLOBIN 10.3 GM/dL (10.7-15.3); LYMPH % 19.2 % (8-40); MCH 30.7 pg (25.7-33.7); MCHC 30.7 g/dl (32.0-36.0); MEAN PLT VOLUME 7.7 fl (7.5-11.1); MONO % 10.8 % (3.8-10.2); NEUT % 66.3 % (42.8-82.8); PLATELET COUNT 44 K/MM3 (134-434); RBC 3.37 M/mm3 (3.60-5.2); WHITE BLOOD COUNT 2.2 K/mm3 (4.0-10.0)
[2019-07-16] MEDS: ALBUTEROL SO4 0.083% IH SOL 2.5 MG/3 ML VIAL.NEB. NEB SCH ×2 (07:51→11:15)
--- NOTE | 2019-07-16 09:00 | PN ---
Progress Note, Physician History of Present Illness: pulmonary alert sitting up in bed dyspnea improving,o2 sat 82% on ra - Current Medication List Current Medications: Active Medications Acetaminophen (Tylenol -) 325 mg PO Q8H PRN PRN Reason: PAIN LEVEL 7 - 10 Albuterol Sulfate (Ventolin 0.083% Nebulizer Soln -) 1 amp NEB RQID [facility] Last Admin: 07/16/19 07:51 Dose: 1 amp Albuterol Sulfate (Ventolin 0.083% Nebulizer Soln -) 1 amp NEB Q4H PRN PRN Reason: SHORT OF BREATH/WHEEZING Atorvastatin Calcium (Lipitor -) 10 mg PO [facility] Last Admin: 07/15/19 21:37 Dose: 10 mg Cyanocobalamin (Vitamin B12 -) 1,000 mcg PO DAILY [facility] Last Admin: 07/15/19 10:36 Dose: 1,000 mcg Ezetimibe (Zetia -) 10 mg PO [facility] Last Admin: 07/15/19 21:37 Dose: 10 mg Furosemide (Lasix -) 40 mg PO BID@0600,1400 [facility] Last Admin: 07/16/19 06:21 Dose: 40 mg Insulin Aspart (Novolog Vial Sliding Scale -) 1 vial SQ TIDAC [facility]; Protocol Last Admin: 07/16/19 06:21 Dose: Not Given Lidocaine (Lidoderm Patch -) 1 patch TP DAILY@2100 [facility] Last Admin: 07/15/19 20:57 Dose: 1 patch Metoprolol Succinate (Toprol Xl -) 25 mg PO [facility] Last Admin: 07/15/19 21:37 Dose: 25 mg Miscellaneous (Lidoderm Patch Removal) 1 each MC DAILY@0900 [facility] Last Admin: 07/15/19 10:37 Dose: 1 each Oxycodone HCl (Roxicodone -) 5 mg PO Q8H PRN PRN Reason: PAIN LEVEL 7 - 10 Last Admin: 07/15/19 10:36 Dose: 5 mg Pantoprazole Sodium (Protonix -) 40 mg PO BID [facility] Last Admin: 07/15/19 21:37 Dose: 40 mg Pregabalin (Lyrica -) 100 mg PO [facility] Last Admin: 07/15/19 21:37 Dose: 100 mg Tiotropium [place] (Spiriva Respimat) 2 puff IH DAILY [facility] Last Admin: 07/15/19 10:38 Dose: 2 puff - Objective Vital Signs: Vital Signs Temperature 98 F 07/16/19 06:00 Pulse Rate 89 07/16/19 06:00 Respiratory Rate 18 07/16/19 08:00 Blood Pressure 135/69 07/16/19 06:00 O2 Sat by Pulse Oximetry (%) 94 L 07/16/19 08:00 Constitutional: Yes: Well Nourished, Calm Eyes: Yes: WNL HENT: Yes: WNL Neck: Yes: WNL Cardiovascular: Yes: Regular Rate and Rhythm, S1, S2 Respiratory: Yes: Rales (few crackles left base) Gastrointestinal: Yes: Normal Bowel Sounds, Soft Extremities: Yes: WNL Edema: No Labs: CBC, BMP 07/16/19 05:15 07/14/19 07:14 INR, PTT INR 1.29 (0.83-1.09) H 07/10/19 17:15 Problem List - Problems (1) Acute on chronic respiratory failure with hypoxemia Code(s): J96.21 - ACUTE AND CHRONIC RESPIRATORY FAILURE WITH HYPOXIA (2) CHF (congestive heart failure) Code(s): I50.9 - HEART FAILURE, UNSPECIFIED (3) Pericardial effusion Code(s): I31.3 - PERICARDIAL EFFUSION (NONINFLAMMATORY) (4) SOB (shortness of breath) Code(s): R06.02 - SHORTNESS OF BREATH (5) Weakness Code(s): R53.1 - WEAKNESS (6) Diabetes Code(s): E11.9 - TYPE 2 DIABETES MELLITUS WITHOUT COMPLICATIONS Qualifiers: Diabetes mellitus type: type 2 (7) HTN (hypertension) Code(s): I10 - ESSENTIAL (PRIMARY) HYPERTENSION Qualifiers: Hypertension type: essential hypertension Qualified Code(s): I10 - Essential (primary) hypertension (8) Thrombocytopenia Code(s): D69.6 - THROMBOCYTOPENIA, UNSPECIFIED (9) CHF (congestive heart failure) Code(s): I50.9 - HEART FAILURE, UNSPECIFIED (10) Acute on chronic respiratory failure with hypoxemia Code(s): J96.21 - ACUTE AND CHRONIC RESPIRATORY FAILURE WITH HYPOXIA Assessment/Plan IMP ACUTE ON CHRONIC HYPOXEMIC RESPIRATORY FAILURE ACUTE ON CHRONIC CHF COPD O2 DEPENDENT PERICARDIAL EFFUSION STABLE DM HTN THROMBOCYTOPENIA PLAN IV LASIX O2 TO MAINTAIN O2 SAT 90% OR GREATER INHALED BRONCHODILATORS DAILY WTS MONITOR PT CT DR SMITH Problem List - Problems (1) Acute on chronic respiratory failure with hypoxemia Code(s): J96.21 - ACUTE AND CHRONIC RESPIRATORY FAILURE WITH HYPOXIA (2) CHF (congestive heart failure) Code(s): I50.9 - HEART FAILURE, UNSPECIFIED (3) Pericardial effusion Code(s): I31.3 - PERICARDIAL EFFUSION (NONINFLAMMATORY) (4) SOB (shortness of breath) Code(s): R06.02 - SHORTNESS OF BREATH (5) Weakness Code(s): R53.1 - WEAKNESS (6) Diabetes Code(s): E11.9 - TYPE 2 DIABETES MELLITUS WITHOUT COMPLICATIONS Qualifiers: Diabetes mellitus type: type 2 (7) HTN (hypertension) Code(s): I10 - ESSENTIAL (PRIMARY) HYPERTENSION Qualifiers: Hypertension type: essential hypertension Qualified Code(s): I10 - Essential (primary) hypertension (8) Thrombocytopenia Code(s): D69.6 - THROMBOCYTOPENIA, UNSPECIFIED (9) CHF (congestive heart failure) Code(s): I50.9 - HEART FAILURE, UNSPECIFIED (10) Acute on chronic respiratory failure with hypoxemia Code(s): J96.21 - ACUTE AND CHRONIC RESPIRATORY FAILURE WITH HYPOXIA
[2019-07-16] MEDS: PANTOPRAZOLE 40 MG TABLET (FP) PO SCH ×2 (10:14→22:51)
[2019-07-16] MEDS: CYANOCOBALAMIN 1,000 MCG TABLET (FP) PO SCH (10:14)
[2019-07-16] MEDS: LIDOCAINE PATCH REMOVAL MC SCH (10:14)
[2019-07-16] MEDS: TIOTROPIUM BROMIDE 2.5 MCG (SPIRIVA) RESPIMAT INHALER IH SCH (10:15)
--- NOTE | 2019-07-16 11:03 | PN ---
Progress Note (short form) - Note Progress Note: s: no cp palps dizzy; sob better o: Vital Signs Period Temp Pulse Resp BP Sys/Rider Pulse Ox Last 24 Hr 97.7 F-98.7 F 84-96 18-22 93-135/47-69 91-94 Constitutional: Yes: Well Nourished, No Distress Eyes: Yes: Conjunctiva Clear, EOM Intact HENT: Yes: Atraumatic, Normocephalic Neck: Yes: Supple, Trachea Midline Respiratory: Yes: Regular, Diminished (bases arielle) Gastrointestinal: Yes: Normal Bowel Sounds, Soft Cardiovascular: Yes: Regular Rate and Rhythm JVD: No Heart Sounds: Yes: S1, S2 Extremities: No: Cold Edema: No Integumentary: No: Jaundice Neurological: Yes: Alert, Oriented Psychiatric: No: Agitated Current Medications Generic Name Dose Route Start Last Admin Trade Name Freq PRN Reason Stop Dose Admin Acetaminophen 325 mg 07/12/19 14:12 Tylenol - PO Q8H PRN PAIN LEVEL 7 - 10 Albuterol Sulfate 1 amp 07/11/19 16:00 07/16/19 07:51 Ventolin 0.083% Nebulizer Soln - NEB 1 amp RQID [facility] Administration Albuterol Sulfate 1 amp 07/11/19 12:30 Ventolin 0.083% Nebulizer Soln - NEB Q4H PRN SHORT OF BREATH/WHEEZING Atorvastatin Calcium 10 mg 07/10/19 22:00 07/15/19 21:37 Lipitor - PO 10 mg HS [facility]IS Administration Cyanocobalamin 1,000 mcg 07/11/19 10:00 07/16/19 10:14 Vitamin B12 - PO 1,000 mcg DAILY [facility] Administration Ezetimibe 10 mg 07/10/19 22:00 07/15/19 21:37 Zetia - PO 10 mg HS [facility]IS Administration Furosemide 40 mg 07/15/19 06:00 07/16/19 06:21 Lasix - PO 40 mg BID@0600,1400 [facility] Administration Insulin Aspart 1 vial 07/11/19 07:00 07/16/19 06:21 Novolog Vial Sliding Scale - SQ Not Given TIDAC [facility] Protocol Lidocaine 1 patch 07/11/19 21:00 07/15/19 20:57 Lidoderm Patch - TP 1 patch DAILY@2100 [facility] Administration Metoprolol Succinate 25 mg 07/10/19 22:00 07/15/19 21:37 Toprol Xl - PO 25 mg HS [facility]IS Administration Miscellaneous 1 each 07/12/19 09:00 07/16/19 10:14 Lidoderm Patch Removal MC 1 each DAILY@0900 [facility] Administration Oxycodone HCl 5 mg 07/12/19 14:11 07/15/19 10:36 Roxicodone - PO 5 mg Q8H PRN Administration PAIN LEVEL 7 - 10 Pantoprazole Sodium 40 mg 07/10/19 22:00 07/16/19 10:14 Protonix - PO 40 mg BID KRIS Administration Pregabalin 100 mg 07/10/19 22:00 07/15/19 21:37 Lyrica - PO 100 mg HS KRIS Administration Tiotropium [place] 2 puff 07/11/19 10:00 07/16/19 10:15 Spiriva Respimat IH 2 puff DAILY [facility]IS Administration CBC, BMP 07/16/19 05:15 07/14/19 07:14 Assessment/Plan EKG: sinus tachy, RBBB, 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 - pulm and cts following-->rec'd possible pleural eff tap - continue po lasix pericardial effusion - history of moderate pericardial effusion without clinical tamponade - normal ESR, TSH, SAADIA and no thoracic mass or other pathology per Dr. Diaz - case was reviewed with CTS and interventional cardiology in the past - window/ pericardiocentesis were deferred given thrombocytopenia - no signs of clinical tamponade here - repeat echo reviewed, pericardial effusion is moderate, no signs tamponade. DM - manage per primary HLD - cont home meds HTN - cont metoprolol
--- NOTE | 2019-07-16 11:32 | PN ---
Progress Note, Physician - Current Medication List Current Medications: Active Medications Acetaminophen (Tylenol -) 325 mg PO Q8H PRN PRN Reason: PAIN LEVEL 7 - 10 Albuterol Sulfate (Ventolin 0.083% Nebulizer Soln -) 1 amp NEB RQID [facility] Last Admin: 07/16/19 11:15 Dose: 1 amp Albuterol Sulfate (Ventolin 0.083% Nebulizer Soln -) 1 amp NEB Q4H PRN PRN Reason: SHORT OF BREATH/WHEEZING Atorvastatin Calcium (Lipitor -) 10 mg PO [facility] Last Admin: 07/15/19 21:37 Dose: 10 mg Cyanocobalamin (Vitamin B12 -) 1,000 mcg PO DAILY [facility] Last Admin: 07/16/19 10:14 Dose: 1,000 mcg Ezetimibe (Zetia -) 10 mg PO [facility] Last Admin: 07/15/19 21:37 Dose: 10 mg Furosemide (Lasix -) 40 mg PO BID@0600,1400 [facility] Last Admin: 07/16/19 06:21 Dose: 40 mg Insulin Aspart (Novolog Vial Sliding Scale -) [facility]; Protocol Last Admin: 07/16/19 06:21 Dose: Not Given Lidocaine (Lidoderm Patch -) 1 patch TP DAILY@2100 [facility] Last Admin: 07/15/19 20:57 Dose: 1 patch Metoprolol Succinate (Toprol Xl -) 25 mg PO [facility] Last Admin: 07/15/19 21:37 Dose: 25 mg Miscellaneous (Lidoderm Patch Removal) 1 each MC DAILY@0900 [facility] Last Admin: 07/16/19 10:14 Dose: 1 each Oxycodone HCl (Roxicodone -) 5 mg PO Q8H PRN PRN Reason: PAIN LEVEL 7 - 10 Last Admin: 07/15/19 10:36 Dose: 5 mg Pantoprazole Sodium (Protonix -) 40 mg PO BID [facility] Last Admin: 07/16/19 10:14 Dose: 40 mg Pregabalin (Lyrica -) 100 mg PO [facility] Last Admin: 07/15/19 21:37 Dose: 100 mg Tiotropium [place] (Spiriva Respimat) 2 puff IH DAILY [facility] Last Admin: 07/16/19 10:15 Dose: 2 puff - Objective Vital Signs: Vital Signs Temperature 98 F 07/16/19 06:00 Pulse Rate 89 07/16/19 06:00 Respiratory Rate 18 07/16/19 08:00 Blood Pressure 135/69 07/16/19 06:00 O2 Sat by Pulse Oximetry (%) 94 L 07/16/19 08:00 Cardiovascular: Yes: S1, S2 Respiratory: Yes: Regular, CTA Bilaterally Gastrointestinal: Yes: Normal Bowel Sounds, Soft Labs: CBC, BMP 07/16/19 05:15 07/14/19 07:14 INR, PTT INR 1.29 (0.83-1.09) H 07/10/19 17:15 Problem List - Problems (1) Pericardial effusion Assessment/Plan: Repeat echo to asses if still large consider--window--TS consult noted cardio consult noted Code(s): I31.3 - PERICARDIAL EFFUSION (NONINFLAMMATORY) (2) CHF (congestive heart failure) Assessment/Plan: - follow up cardiology consult - continue with o2 via NC 3L - Low dose lasix -ct of chest to asses effusions Code(s): I50.9 - HEART FAILURE, UNSPECIFIED (3) Weakness Assessment/Plan: -as above -follow labs Code(s): R53.1 - WEAKNESS (4) COPD (chronic obstructive pulmonary disease) Assessment/Plan: nebs pulm Code(s): J44.9 - CHRONIC OBSTRUCTIVE PULMONARY DISEASE, UNSPECIFIED Qualifiers: Chronic bronchitis type: unspecified (5) Thrombocytopenia Assessment/Plan: maybe due to hepato-splenomegaly/cirrhosis monitor Code(s): D69.6 - THROMBOCYTOPENIA, UNSPECIFIED
[2019-07-16] MEDS ORDERED: LIDOCAINE 5% TOPICAL PATCH TP SCH (21:30)
[2019-07-16] MEDS ORDERED: oxyCODONE HCL 5 MG TABLET PO PRN (21:31)
[2019-07-16] MEDS ORDERED: ACETAMINOPHEN 325 MG TABLET (FP) PO PRN (21:31)
[2019-07-16] MEDS ORDERED: LIDOCAINE PATCH REMOVAL MC SCH (22:00)
[2019-07-16] MEDS: PREGABALIN 50 MG CAPSULE PO SCH (22:50)
[2019-07-16] MEDS: LIDOCAINE 5% TOPICAL PATCH TP SCH ×2 (22:50→22:59)
[2019-07-16] MEDS: EZETIMIBE 10 MG TABLET (FP) PO SCH (22:50)
[2019-07-16] MEDS: metoPROLOL SUCCINATE 25 MG TAB.SR.24H (FP) PO SCH (22:51)
[2019-07-16] MEDS: ATORVASTATIN CA 10 MG TABLET (FP) PO SCH (22:51)
[2019-07-17] MEDS: INSULIN SLIDING SCALE (NOVOLOG) 1 VIAL SQ SCH ×3 (06:26→16:28)
[2019-07-17] MEDS: FUROSEMIDE 40 MG TABLET (FP) PO SCH ×2 (06:27→14:30)
[2019-07-17] MEDS ORDERED: PT OWN MED DRAWER 7, Y5N ONE ×2 (09:47→12:21)
[2019-07-17] MEDS: LIDOCAINE PATCH REMOVAL MC SCH (09:50)
[2019-07-17] MEDS: PANTOPRAZOLE 40 MG TABLET (FP) PO SCH ×2 (09:50→21:10)
[2019-07-17] MEDS: CYANOCOBALAMIN 1,000 MCG TABLET (FP) PO SCH (09:50)
--- NOTE | 2019-07-17 12:09 | PN ---
Progress Note (short form) - Note Progress Note: PULMONARY Breathing slowly improving. No chest pain. +nonproductive cough. Vital Signs Period Temp Pulse Resp BP Sys/Rider Pulse Ox Last 24 Hr 98 F-98.4 F 72-89 18-20 86-114/47-60 93-96 Gen: NAD at rest Heart: RRR Lung:decreased breath sounds at the bases Abd: soft, nontender Ext: no edema CBC, BMP 07/16/19 05:15 07/14/19 07:14 Active Medications Acetaminophen (Tylenol -) 325 mg PO Q8H PRN PRN Reason: PAIN LEVEL 7 - 10 Atorvastatin Calcium (Lipitor -) 10 mg PO [facility] Last Admin: 07/16/19 22:51 Dose: 10 mg Cyanocobalamin (Vitamin B12 -) 1,000 mcg PO DAILY [facility] Last Admin: 07/17/19 09:50 Dose: 1,000 mcg Ezetimibe (Zetia -) 10 mg PO [facility] Last Admin: 07/16/19 22:50 Dose: 10 mg Furosemide (Lasix -) 40 mg PO BID@0600,1400 [facility] Last Admin: 07/17/19 06:27 Dose: 40 mg Insulin Aspart (Novolog Vial Sliding Scale -) 1 vial SQ TIDAC [facility]; Protocol Last Admin: 07/17/19 11:34 Dose: Not Given Lidocaine (Lidoderm Patch -) 1 patch TP DAILY@2100 [facility] Last Admin: 07/16/19 22:50 Dose: 1 patch Metoprolol Succinate (Toprol Xl -) 25 mg PO [facility] Last Admin: 07/16/19 22:51 Dose: 25 mg Miscellaneous (Lidoderm Patch Removal) 1 each MC DAILY@0900 [facility] Last Admin: 07/17/19 09:50 Dose: 1 each Oxycodone HCl (Roxicodone -) 5 mg PO Q8H PRN PRN Reason: PAIN LEVEL 7 - 10 Pantoprazole Sodium (Protonix -) 40 mg PO BID [facility] Last Admin: 07/17/19 09:50 Dose: 40 mg Pregabalin (Lyrica -) 100 mg PO [facility] Last Admin: 07/16/19 22:50 Dose: 100 mg Tiotropium [place] (Spiriva Respimat) 2 puff IH DAILY [facility] A/P Acute on Chronic Hypoxic Respiratory Failure Acute on Chronic Diastolic Heart Failure COPD Pericardial Effusion Pleural Effusion Aortic Stenosis Pancytopenia HTN DM - continue lasix - monitor urine output, creatinine - daily weights - O2 to keep SpO2 >90% - inhaled bronchodilators - monitor CBC - DVT prophylaxis
[2019-07-17] MEDS: TIOTROPIUM BROMIDE 2.5 MCG (SPIRIVA) RESPIMAT INHALER IH SCH (12:25)
--- NOTE | 2019-07-17 12:49 | PN ---
Progress Note (short form) - Note Progress Note: s: no cp palps dizzy sob o: Vital Signs Period Temp Pulse Resp BP Sys/Rider Pulse Ox Last 24 Hr 98 F-98.4 F 72-89 18-20 86-114/47-60 93-96 Constitutional: Yes: Well Nourished, No Distress Eyes: Yes: Conjunctiva Clear, EOM Intact HENT: Yes: Atraumatic, Normocephalic Neck: Yes: Supple, Trachea Midline Respiratory: Yes: Regular, Diminished (bases arielle) Gastrointestinal: Yes: Normal Bowel Sounds, Soft Cardiovascular: Yes: Regular Rate and Rhythm JVD: No Heart Sounds: Yes: S1, S2 Extremities: No: Cold Edema: No Integumentary: No: Jaundice Neurological: Yes: Alert, Oriented Psychiatric: No: Agitated Current Medications Acetaminophen (Tylenol -) 325 mg PO Q8H PRN PRN Reason: PAIN LEVEL 7 - 10 Last Admin: 07/17/19 12:24 Dose: 325 mg Atorvastatin Calcium (Lipitor -) [address] [facility] Last Admin: 07/16/19 22:51 Dose: 10 mg Cyanocobalamin (Vitamin B12 -) 1,000 mcg PO DAILY [facility] Last Admin: 07/17/19 09:50 Dose: 1,000 mcg Ezetimibe (Zetia -) [address] [facility] Last Admin: 07/16/19 22:50 Dose: 10 mg Furosemide (Lasix -) 40 mg PO BID@0600,1400 [facility] Last Admin: 07/17/19 06:27 Dose: 40 mg Insulin Aspart (Novolog Vial Sliding Scale -) 1 vial SQ TIDAC [facility]; Protocol Last Admin: 07/17/19 11:34 Dose: Not Given Lidocaine (Lidoderm Patch -) 1 patch TP DAILY@2100 [facility] Last Admin: 07/16/19 22:50 Dose: 1 patch Metoprolol Succinate (Toprol Xl -) [address] [facility] Last Admin: 07/16/19 22:51 Dose: 25 mg Miscellaneous (Lidoderm Patch Removal) 1 each MC DAILY@0900 [facility] Last Admin: 07/17/19 09:50 Dose: 1 each Oxycodone HCl (Roxicodone -) 5 mg PO Q8H PRN PRN Reason: PAIN LEVEL 7 - 10 Last Admin: 07/17/19 12:26 Dose: 5 mg Pantoprazole Sodium (Protonix -) 40 mg PO BID [facility] Last Admin: 07/17/19 09:50 Dose: 40 mg Pregabalin (Lyrica -) 100 mg PO HS [facility] Last Admin: 07/16/19 22:50 Dose: 100 mg Tiotropium [place] (Spiriva Respimat) 2 puff IH DAILY [facility] Last Admin: 07/17/19 12:25 Dose: 2 puff Assessment/Plan EKG: sinus tachy, RBBB, 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 - pulm and cts following-->rec'd possible pleural eff tap - continue po lasix pericardial effusion - history of moderate pericardial effusion without clinical tamponade - normal ESR, TSH, SAADIA and no thoracic mass or other pathology per Dr. Diaz - case was reviewed with CTS and interventional cardiology in the past - window/ pericardiocentesis were deferred given thrombocytopenia - no signs of clinical tamponade here - repeat echo reviewed, pericardial effusion is moderate, no signs tamponade. DM - manage per primary HLD - cont home meds HTN - cont metoprolol
--- NOTE | 2019-07-17 14:01 | PN ---
Progress Note, Physician Chief Complaint: AWAKE ALERT EVENTS ANDNOTES REVIEED PATIENT IS FEELING BETTER DENIES SOB OR CP - Current Medication List Current Medications: Active Medications Acetaminophen (Tylenol -) 325 mg PO Q8H PRN PRN Reason: PAIN LEVEL 7 - 10 Last Admin: 07/17/19 12:24 Dose: 325 mg Atorvastatin Calcium (Lipitor -) 10 mg PO [facility] Last Admin: 07/16/19 22:51 Dose: 10 mg Cyanocobalamin (Vitamin B12 -) 1,000 mcg PO DAILY [facility] Last Admin: 07/17/19 09:50 Dose: 1,000 mcg Ezetimibe (Zetia -) 10 mg PO [facility] Last Admin: 07/16/19 22:50 Dose: 10 mg Furosemide (Lasix -) 40 mg PO BID@0600,1400 [facility] Last Admin: 07/17/19 06:27 Dose: 40 mg Insulin Aspart (Novolog Vial Sliding Scale -) 1 vial SQ TIDAC [facility]; Protocol Last Admin: 07/17/19 11:34 Dose: Not Given Lidocaine (Lidoderm Patch -) 1 patch TP DAILY@2100 [facility] Last Admin: 07/16/19 22:50 Dose: 1 patch Metoprolol Succinate (Toprol Xl -) 25 mg PO [facility] Last Admin: 07/16/19 22:51 Dose: 25 mg Miscellaneous (Lidoderm Patch Removal) 1 each MC DAILY@0900 [facility] Last Admin: 07/17/19 09:50 Dose: 1 each Oxycodone HCl (Roxicodone -) 5 mg PO Q8H PRN PRN Reason: PAIN LEVEL 7 - 10 Last Admin: 07/17/19 12:26 Dose: 5 mg Pantoprazole Sodium (Protonix -) 40 mg PO BID [facility] Last Admin: 07/17/19 09:50 Dose: 40 mg Pregabalin (Lyrica -) 100 mg PO [facility] Last Admin: 07/16/19 22:50 Dose: 100 mg Tiotropium [place] (Spiriva Respimat) 2 puff IH DAILY [facility] Last Admin: 07/17/19 12:25 Dose: 2 puff - Objective Vital Signs: Vital Signs Temperature 98.4 F 07/17/19 08:15 Pulse Rate 86 07/17/19 08:15 Respiratory Rate 20 07/17/19 08:15 Blood Pressure 103/55 L 07/17/19 08:15 O2 Sat by Pulse Oximetry (%) 93 L 07/17/19 09:00 Constitutional: Yes: No Distress Cardiovascular: Yes: Regular Rate and Rhythm Respiratory: Yes: Regular Gastrointestinal: Yes: WNL, Soft Genitourinary: Yes: WNL Musculoskeletal: Yes: WNL Edema: No Integumentary: Yes: WNL Wound/Incision: Yes: Clean/Dry Neurological: Yes: WNL ...Motor Strength: WNL Psychiatric: Yes: WNL Labs: CBC, BMP 07/16/19 05:15 07/14/19 07:14 INR, PTT INR 1.29 (0.83-1.09) H 07/10/19 17:15 Problem List - Problems (1) Acute on chronic respiratory failure with hypoxemia Code(s): J96.21 - ACUTE AND CHRONIC RESPIRATORY FAILURE WITH HYPOXIA (2) Pericardial effusion Code(s): I31.3 - PERICARDIAL EFFUSION (NONINFLAMMATORY) (3) Symptomatic anemia Code(s): D64.9 - ANEMIA, UNSPECIFIED Assessment/Plan PLEURAL EFFUSION ON DIURETICS CONTINUE DIURETICS PULM/CARDIO F/U APPRECIATED ECHO NO ACUTE CHANGES COMPARED TO PREVIOUS ECHO DC PLANNING POSSIBLY TOMORROW
--- NOTE | 2019-07-17 14:03 | CONSULT ---
Consult Consult Specialty:: Vascular Surgery Referred by:: Dr. Storm Nelson Reason for Consultation:: Infrarenal AAA 4.7CM - History of Present Illness Chief Complaint: None offered by patient History of Present Illness: Called to eval 78 yo female w/ PMHx of Anemia, Cirrhosis, COPD (on 2L home O2), Pericardial Effusion(chronic), HTN, HLD, DM and infrarenal AAA, Thrombocytopenia , GI Bleed, Left adrenal adenoma and Right colonic angiodysplasia. Patient currently admitted secondary to SOB due to COPD associated right pleural effusion being managed conservatively medically. She is resting comfortably in bed without complaint. 3L NC. Patient had an ABD U/S which identified a 4.7 CM infrarenal AAA. When to CT scan of 06/21/17 --> infrarenal AAA 4.5 CM. (slow growing 0.2 CM over 2 years). 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 Cardio/Vascular: Yes: CAD (had cardiac cath with a single completely occluded artery ( per patient)), HTN, Hyperlipdemia, [place], Other (AAA 4.4cm) 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 ?) Heme/Onc: Yes: Anemia, Thrombocytopenia Musculoskeletal: Yes: Osteoarthritis Endocrine: Yes: Diabetes Mellitus - Past Surgical History Past Surgical History: Yes: Appendectomy (during cholecystectomy ?), Carotid Endarterectomy (Left 2014), Cataract Removal, Cholecystectomy, Colonoscopy, Hernia Repair (Umbilical), Tonsillectomy, Upper Endoscopy - Alcohol/Substance Use Hx Alcohol Use: Yes (socially in past) History of Substance Use: reports: None - Smoking History Smoking history: Never smoked Have you smoked in the past 12 months: No If you are a former smoker, when did you quit?: 14 yrs- 2002 - Social History Usual Living Arrangement: Alone ( 7 months ago) ADL: Independent 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 History of Recent Travel: No <Gustavo Gaines P - Last Filed: 07/17/19 14:29> Home Medications <Gustavo Gaines P - Last Filed: 07/17/19 14:29> <Aman Flores - Last Filed: 07/18/19 14:05> - Allergies Allergies/Adverse Reactions: Allergies Allergy/AdvReac Type Severity Reaction Status Date / Time No Known Drug Allergies Allergy Verified 07/10/19 16:39 - Home Medications Home Medications: Ambulatory Orders Ezetimibe/Simvastatin [Vytorin 10-20 mg Tablet] 1 each PO HS 05/03/12 Metoprolol Succinate [Toprol XL -] 25 mg PO HS 05/03/12 Pregabalin [Lyrica] 100 mg PO HS 05/03/12 Cyanocobalamin [Vitamin B12 -] 1,000 mcg PO DAILY 06/18/14 Pantoprazole Sodium [Protonix -] 40 mg PO BID #60 tab 08/14/17 Glyburide 2.5 mg PO BID 06/27/19 Metformin HCl [Glucophage] 500 mg PO DAILY 06/27/19 Tiotropium [place] [Spiriva Respimat] 1 inh IH DAILY 06/29/19 Family Disease History - Family Disease History Family Disease History: [place]: Father (: 80's: asbestos related lung cancer), Other: Mother ( in her 80s "old age". h/o anemia), Brother (1, secondary to obseity complications), Sister (1, : COPD complications), Son ( 1, healthy) <Gustavo Gaines P - Last Filed: 07/17/19 14:29> Review of Systems - Review of Systems Constitutional: reports: No Symptoms Eyes: reports: No Symptoms HENT: reports: No Symptoms Neck: reports: No Symptoms Cardiovascular: reports: No Symptoms Respiratory: reports: No Symptoms Gastrointestinal: reports: No Symptoms Genitourinary: reports: No Symptoms Musculoskeletal: reports: No Symptoms Integumentary: reports: No Symptoms Neurological: reports: No Symptoms Endocrine: reports: No Symptoms Hematology/Lymphatic: reports: No Symptoms Psychiatric: reports: No Symptoms <Gustavo Gaines P - Last Filed: 07/17/19 14:29> Physical Exam Vital Signs: Vital Signs Temperature 98.4 F 07/17/19 08:15 Pulse Rate 86 07/17/19 08:15 Respiratory Rate 20 07/17/19 08:15 Blood Pressure 103/55 L 07/17/19 08:15 O2 Sat by Pulse Oximetry (%) 93 L 07/17/19 09:00 Constitutional: Yes: Well Nourished, No Distress, Calm Eyes: Yes: WNL HENT: Yes: WNL, Atraumatic, Normocephalic Neck: Yes: WNL, Supple, Trachea Midline Cardiovascular: Yes: WNL, Regular Rate and Rhythm Respiratory: Yes: WNL Gastrointestinal: Yes: WNL, Normal Bowel Sounds, Soft. No: Distention, Hernia, Pulsatile Mass, Tenderness Renal/: Yes: WNL Musculoskeletal: Yes: WNL Extremities: Yes: WNL Edema: No Peripheral Pulses WNL: Yes (Bilateral palpable Fem/Pop/DP/PT) Neurological: Yes: WNL, Alert, Oriented ...Motor Strength: WNL Psychiatric: Yes: WNL, Alert, Oriented Labs: CBC, [facility] 07/16/19 05:15 07/14/19 07:14 <Gustavo Gaines P - Last Filed: 07/17/19 14:29> Vital Signs: Vital Signs Temperature 98.8 F 07/18/19 10:00 Pulse Rate 76 07/18/19 10:00 Respiratory Rate 20 07/18/19 10:00 Blood Pressure 98/50 L 07/18/19 10:00 O2 Sat by Pulse Oximetry (%) 93 L 07/17/19 09:00 Labs: CBC, [facility] 07/18/19 05:40 07/18/19 05:40 <Aman Flores - Last Filed: 07/18/19 14:05> Imaging - Results Chest X-ray: Report Reviewed Cat Scan: Report Reviewed Ultrasound: Report Reviewed <Gustavo Gaines P - Last Filed: 07/17/19 14:29> Problem List - Problems (1) Aneurysm of infrarenal abdominal aorta Code(s): I71.4 - ABDOMINAL AORTIC ANEURYSM, WITHOUT RUPTURE (2) Acute on chronic respiratory failure with hypoxemia Code(s): J96.21 - ACUTE AND CHRONIC RESPIRATORY FAILURE WITH HYPOXIA (3) Pericardial effusion Code(s): I31.3 - PERICARDIAL EFFUSION (NONINFLAMMATORY) (4) SOB (shortness of breath) Code(s): R06.02 - SHORTNESS OF BREATH (5) HLD (hyperlipidemia) Code(s): E78.5 - HYPERLIPIDEMIA, UNSPECIFIED (6) Anemia Code(s): D64.9 - ANEMIA, UNSPECIFIED Qualifiers: Anemia type: unspecified type Qualified Code(s): D64.9 - Anemia, unspecified (7) COPD (chronic obstructive pulmonary disease) Code(s): J44.9 - CHRONIC OBSTRUCTIVE PULMONARY DISEASE, UNSPECIFIED Qualifiers: Chronic bronchitis type: unspecified (8) Diabetes Code(s): E11.9 - TYPE 2 DIABETES MELLITUS WITHOUT COMPLICATIONS Qualifiers: Diabetes mellitus type: type 2 (9) HTN (hypertension) Code(s): I10 - ESSENTIAL (PRIMARY) HYPERTENSION Qualifiers: Hypertension type: essential hypertension Qualified Code(s): I10 - Essential (primary) hypertension (10) Thrombocytopenia Code(s): D69.6 - THROMBOCYTOPENIA, UNSPECIFIED <Gustavo Gaines - Last Filed: 07/17/19 14:29> Assessment/Plan 78 yo female with multiple medical problems. Currently being managed for her COPD/SOB/pleural effusion. During an U/S study on this admission, her infrarenal AAA was measured at 4.7 AM. Compared to prior imaging from 06/21/[address] scan was measured at 4.5. Due to it's slow growth at 0.2 CM over 2 years and she remains asymptomatic, no planned surgical intervention until it is 5 CM or sooner if she becomes symptomatic. 1. Recommend routine surveillance q6 months 2. Cont medical management 3. No vascular surgery intervention. Above plan discussed with my attending and agrees. On behalf of Dr. Flores, thank you for the opportunity to participate in your patient's care. <Gustavo Gaines - Last Filed: 07/17/19 14:29> History reviewed and patient examined. Asymptomatic AAA 4.7 cm on current exam. rate of growth is slow and risk of complication from this aneurysm is low. No indication for surgical intervention at this time. repair usually recommended at 5 cm in women or if rate of growth more than 5 mm/year. She should have a repeat sonogram of aorta in 6 months to recheck size. <Aman Flores - Last Filed: 07/18/19 14:05> Visit type - Emergency Visit Emergency Visit: Yes ED Registration Date: 07/10/19 Care time: The patient presented to the Emergency Department on the above date and was hospitalized for further evaluation of their emergent condition. - New Patient This patient is new to me today: Yes Date on this admission: 07/17/19 - Critical Care Critical Care patient: No <Gustavo Gaines - Last Filed: 07/17/19 14:29>
[2019-07-17] MEDS ORDERED: ACETAMINOPHEN 325 MG TABLET (FP) PO PRN ×2 (18:10→18:38)
[2019-07-17] MEDS: LIDOCAINE 5% TOPICAL PATCH TP SCH (21:10)
[2019-07-17] MEDS: EZETIMIBE 10 MG TABLET (FP) PO SCH (21:11)
[2019-07-17] MEDS: metoPROLOL SUCCINATE 25 MG TAB.SR.24H (FP) PO SCH (21:11)
[2019-07-17] MEDS: ATORVASTATIN CA 10 MG TABLET (FP) PO SCH (21:11)
[2019-07-17] MEDS: PREGABALIN 50 MG CAPSULE PO SCH (21:12)
[2019-07-18] MEDS: INSULIN SLIDING SCALE (NOVOLOG) 1 VIAL SQ SCH (06:24)
[2019-07-18] MEDS: FUROSEMIDE 40 MG TABLET (FP) PO SCH (06:25)
[2019-07-18 06:35] LABS: HEMATOCRIT 34.9 % (32.4-45.2); HEMOGLOBIN 10.8 GM/dL (10.7-15.3); MCH 31.1 pg (25.7-33.7); MCHC 30.9 g/dl (32.0-36.0); MEAN CELL VOLUME 100.5 fl (80-96); MEAN PLT VOLUME 7.5 fl (7.5-11.1); PLATELET COUNT 42 K/MM3 (134-434); RBC 3.47 M/mm3 (3.60-5.2); RDW 18.4 % (11.6-15.6); WHITE BLOOD COUNT 2.2 K/mm3 (4.0-10.0)
[2019-07-18 06:47] LABS: BILIRUBIN,TOTAL 0.8 mg/dL (0.2-1); BLOOD UREA NITROGEN 9.8 mg/dL (7-18); CALCIUM 7.6 mg/dL (8.5-10.1); CREATININE 0.8 mg/dL (0.55-1.3); MAGNESIUM 1.9 mg/dL (1.8-2.4); POTASSIUM 3.8 mmol/L (3.5-5.1); TOT PROT 5.9 g/dl (6.4-8.2)
[2019-07-18] MEDS: PANTOPRAZOLE 40 MG TABLET (FP) PO SCH (09:25)
[2019-07-18] MEDS: CYANOCOBALAMIN 1,000 MCG TABLET (FP) PO SCH (09:26)
[2019-07-18] MEDS: LIDOCAINE PATCH REMOVAL MC SCH (09:27)
[2019-07-18] MEDS: TIOTROPIUM BROMIDE 2.5 MCG (SPIRIVA) RESPIMAT INHALER IH SCH (09:28)
[2019-07-18 10:29] VITALS: BP 98/50; PULSE 76; TEMP 98.8
--- NOTE | 2019-07-18 11:49 | PN ---
Progress Note (short form) - Note Progress Note: s: no cp palps dizzy sob o: Vital Signs Period Temp Pulse Resp BP Sys/Rider Pulse Ox Last 24 Hr 97.5 F-98.8 F 69-86 18-20 95-117/50-61 Constitutional: Yes: Well Nourished, No Distress Eyes: Yes: Conjunctiva Clear, EOM Intact HENT: Yes: Atraumatic, Normocephalic Neck: Yes: Supple, Trachea Midline Respiratory: Yes: Regular, Diminished (bases arielle) Gastrointestinal: Yes: Normal Bowel Sounds, Soft Cardiovascular: Yes: Regular Rate and Rhythm JVD: No Heart Sounds: Yes: S1, S2 Extremities: No: Cold Edema: No Integumentary: No: Jaundice Neurological: Yes: Alert, Oriented Psychiatric: No: Agitated Current Medications Acetaminophen (Tylenol -) 650 mg PO Q6H PRN PRN Reason: PAIN LEVEL 4 - 6 Atorvastatin Calcium (Lipitor -) 10 mg PO [facility] Last Admin: 07/17/19 21:11 Dose: 10 mg Cyanocobalamin (Vitamin B12 -) 1,000 mcg PO DAILY [facility] Last Admin: 07/18/19 09:26 Dose: 1,000 mcg Ezetimibe (Zetia -) 10 mg PO [facility] Last Admin: 07/17/19 21:11 Dose: 10 mg Furosemide (Lasix -) 40 mg PO BID@0600,1400 [facility] Last Admin: 07/18/19 06:25 Dose: 40 mg Insulin Aspart (Novolog Vial Sliding Scale -) 1 vial SQ TIDAC [facility]; Protocol Last Admin: 07/18/19 06:24 Dose: Not Given Lidocaine (Lidoderm Patch -) 1 patch TP DAILY@2100 [facility] Last Admin: 07/17/19 21:10 Dose: 1 patch Metoprolol Succinate (Toprol Xl -) 25 mg PO [facility] Last Admin: 07/17/19 21:11 Dose: Not Given Miscellaneous (Lidoderm Patch Removal) 1 each MC DAILY@0900 [facility] Last Admin: 07/18/19 09:27 Dose: 1 each Oxycodone HCl (Roxicodone -) 5 mg PO Q8H PRN PRN Reason: PAIN LEVEL 7 - 10 Last Admin: 07/17/19 12:26 Dose: 5 mg Pantoprazole Sodium (Protonix -) 40 mg PO BID [facility] Last Admin: 07/18/19 09:25 Dose: 40 mg Pregabalin (Lyrica -) 100 mg PO HS [facility] Last Admin: 07/17/19 21:12 Dose: 100 mg Tiotropium [place] (Spiriva Respimat) 2 puff IH DAILY [facility] Last Admin: 07/18/19 09:28 Dose: 2 puff Assessment/Plan EKG: sinus tachy, RBBB, 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 - pulm and cts following-->rec'd to consider pleural eff tap - continue po lasix pericardial effusion - history of moderate pericardial effusion without clinical tamponade - normal ESR, TSH, SAADIA and no thoracic mass or other pathology per Dr. Diaz - case was reviewed with CTS and interventional cardiology in the past - window/ pericardiocentesis were deferred given thrombocytopenia - no signs of clinical tamponade here - repeat echo reviewed, pericardial effusion is moderate, no signs tamponade. DM - manage per primary HLD - cont home meds HTN - cont metoprolol stable for dc from cardiac perspective
--- NOTE | 2019-07-18 13:27 | PN ---
Progress Note (short form) - Note Progress Note: PULMONARY Breathing slowly improving. No chest pain. Vital Signs Period Temp Pulse Resp BP Sys/Rider Pulse Ox Last 24 Hr 97.5 F-98.8 F 69-86 18-20 95-117/50-61 Gen: NAD at rest Heart: RRR Lung:decreased breath sounds at the bases Abd: soft, nontender Ext: no edema CBC, BMP 07/18/19 05:40 07/18/19 05:40 Active Medications Acetaminophen (Tylenol -) 650 mg PO Q6H PRN PRN Reason: PAIN LEVEL 4 - 6 Atorvastatin Calcium (Lipitor -) 10 mg PO [facility] Last Admin: 07/17/19 21:11 Dose: 10 mg Cyanocobalamin (Vitamin B12 -) 1,000 mcg PO DAILY [facility] Last Admin: 07/18/19 09:26 Dose: 1,000 mcg Ezetimibe (Zetia -) 10 mg PO [facility] Last Admin: 07/17/19 21:11 Dose: 10 mg Furosemide (Lasix -) 40 mg PO BID@0600,1400 [facility] Last Admin: 07/18/19 06:25 Dose: 40 mg Insulin Aspart (Novolog Vial Sliding Scale -) 1 vial SQ TIDAC [facility]; Protocol Last Admin: 07/18/19 06:24 Dose: Not Given Lidocaine (Lidoderm Patch -) 1 patch TP DAILY@2100 [facility] Last Admin: 07/17/19 21:10 Dose: 1 patch Metoprolol Succinate (Toprol Xl -) 25 mg PO [facility] Last Admin: 07/17/19 21:11 Dose: Not Given Miscellaneous (Lidoderm Patch Removal) 1 each MC DAILY@0900 [facility] Last Admin: 07/18/19 09:27 Dose: 1 each Oxycodone HCl (Roxicodone -) 5 mg PO Q8H PRN PRN Reason: PAIN LEVEL 7 - 10 Last Admin: 07/17/19 12:26 Dose: 5 mg Pantoprazole Sodium (Protonix -) 40 mg PO BID [facility] Last Admin: 07/18/19 09:25 Dose: 40 mg Pregabalin (Lyrica -) 100 mg PO [facility] Last Admin: 07/17/19 21:12 Dose: 100 mg Tiotropium [place] (Spiriva Respimat) 2 puff IH DAILY [facility] Last Admin: 07/18/19 09:28 Dose: 2 puff A/P Acute on Chronic Hypoxic Respiratory Failure Acute on Chronic Diastolic Heart Failure COPD Pericardial Effusion Pleural Effusion Aortic Stenosis Pancytopenia HTN DM - continue lasix - monitor urine output, creatinine - daily weights - O2 to keep SpO2 >90% - inhaled bronchodilators - monitor CBC - encouraged usage of home and portable O2 - DVT prophylaxis
--- NOTE | 2019-07-18 14:06 | DS ---
Physical Examination Vital Signs: Vital Signs Temperature 98.8 F 07/18/19 10:00 Pulse Rate 76 07/18/19 10:00 Respiratory Rate 20 07/18/19 10:00 Blood Pressure 98/50 L 07/18/19 10:00 O2 Sat by Pulse Oximetry (%) 93 L 07/17/19 09:00 Labs: CBC, BMP 07/18/19 05:40 07/18/19 05:40 Discharge Summary Reason For Visit: SHORTNESS OF BREATH,ANEMIA,COPD Current Active Problems Acute on chronic respiratory failure with hypoxemia (Acute) Acute on chronic respiratory failure with hypoxemia (Acute) Aneurysm of infrarenal abdominal aorta (Acute) CHF (congestive heart failure) (Acute) CHF (congestive heart failure) (Acute) Pericardial effusion (Acute) SOB (shortness of breath) (Acute) Hospital Course: Patient is a 78 y/o female with past medical history of Anemia, COPD, Pericardial effusion, HTN, HLD, DM. Patient presented to ER with complaints of generalized weakness and SOB. She was receiving breathing treatments at home but was not feeling relief. When patient was seen by PCP she was noted with SpO2 75% and was sent to ER for further evaluation. Patient was followed by Pulmonary and Cardiology while inpatient. Condition: Stable - Instructions Referrals: Joana Damon [Primary Care Provider] - Disposition: VNS/HOME HEALTH CARE - Home Medications Comprehensive Discharge Medication List: Ambulatory Orders Ezetimibe/Simvastatin [Vytorin 10-20 mg Tablet] 1 each PO HS 05/03/12 Metoprolol Succinate [Toprol XL -] 25 mg PO HS 05/03/12 Pregabalin [Lyrica] 100 mg PO HS 05/03/12 Cyanocobalamin [Vitamin B12 -] 1,000 mcg PO DAILY 06/18/14 Pantoprazole Sodium [Protonix -] 40 mg PO BID #60 tab 08/14/17 Glyburide 2.5 mg PO BID 06/27/19 Metformin HCl [Glucophage] 500 mg PO DAILY 06/27/19 Tiotropium [place] [Spiriva Respimat] 1 inh IH DAILY 06/29/19
== END 2019-07-18 15:01 | disposition home health service (06) | DRG 291 ==
LOC: JER 16:21 → JERBED 18:34 → J4W 19:41 → J8W 07-16 21:29
PROVIDERS: ADMIT Family Medicine; ATTEND Family Medicine
DX: I11.0 Hypertensive heart disease with heart failure (principal); J96.21 Acute and chronic respiratory failure with hypoxia; I31.3 Pericardial effusion (noninflammatory); I45.2 Bifascicular block; D61.818 Other pancytopenia; I50.33 Acute on chronic diastolic (congestive) heart failure; Z87.891 Personal history of nicotine dependence; K74.60 Unspecified cirrhosis of liver; E11.9 Type 2 diabetes mellitus without complications; K21.9 Gastro-esophageal reflux disease without esophagitis; R53.1 Weakness; J44.9 Chronic obstructive pulmonary disease, unspecified; D69.6 Thrombocytopenia, unspecified; D64.9 Anemia, unspecified; E78.5 Hyperlipidemia, unspecified; I35.0 Nonrheumatic aortic (valve) stenosis; D72.819 Decreased white blood cell count, unspecified
CPT/HCPCS: 36415; 71045-TC-FY; 71250-TC; 76775-TC; 80048; 80053; 82550; 82607; 82728; 82962; 83036; 83540; 83550; 83735; 83880; 84443; 84484; 85025; 85027; 85610; 93005; 93010; 93306-TC; 94640; 97116-GP; 97162-GP; 99285-25

== ENCOUNTER 2019-08-18 17:39 | Inpatient (IN) | payer OTHER, MEDICARE ==
--- NOTE | 2019-08-18 18:23 | PDOC ---
History of Present Illness - General Chief Complaint: Shortness of Breath Stated Complaint: SOB - History of Present Illness Initial Comments: The pt is a 78F w/ a history of HFpEF, pericardial effusion, COPD (2L NC), OA who presents for evaluation of 1 week of worsening SOB/MULLIGAN w/ associated generalized weakness. She reports chronic cough productive cough, denies fevers , chest pain, BLE swelling, N/V/C/D, dysuria, hematuria, or blood in her stool. She tried taking one of her late 's Lasix with no relief. She has been using her nebulizer at home with no relief (none today). 08/18/19 18:20 Past History - Past Medical History Allergies/Adverse Reactions: Allergies Allergy/AdvReac Type Severity Reaction Status Date / Time No Known Drug Allergies Allergy Verified 08/18/19 17:41 Home Medications: Ambulatory Orders Ezetimibe/Simvastatin [Vytorin 10-20 mg Tablet] 1 each PO HS 05/03/12 Metoprolol Succinate [Toprol XL -] 25 mg PO HS 05/03/12 Pregabalin [Lyrica] 100 mg PO HS 05/03/12 Cyanocobalamin [Vitamin B12 -] 1,000 mcg PO DAILY 06/18/14 Pantoprazole Sodium [Protonix -] 40 mg PO BID #60 tab 08/14/17 Glyburide 2.5 mg PO BID 06/27/19 Metformin HCl [Glucophage] 500 mg PO DAILY 06/27/19 Tiotropium [place] [Spiriva Respimat] 1 inh IH DAILY 06/29/19 Ferrous Sulfate [Iron] 325 mg PO DAILY 08/18/19 Anemia: Yes Asthma: No Cancer: No Cardiac Disorders: No CVA: No COPD: Yes CHF: No Dementia: No Diabetes: Yes (NIDDM) GI Disorders: Yes (diverticulosis,constipation) Disorders: No HTN: Yes Hypercholesterolemia: Yes Liver Disease: No Seizures: No - Surgical History Abdominal Surgery: Yes (repair umbilical hernia) Appendectomy: Yes Cardiac Surgery: No Cholecystectomy: Yes Lung Surgery: No Neurologic Surgery: No Orthopedic Surgery: Yes (ORIF, RIGHT ANKLE) - Immunization History Immunization Up to Date: Yes - Psycho Social/Smoking Cessation Hx Smoking History: Former smoker Have you smoked in the past 12 months: No If you are a former smoker, when did you quit?: 2001 Information on smoking cessation initiated: No 'Breaking Loose' booklet given: 05/04/12 Hx Alcohol Use: No Drug/Substance Use Hx: No Substance Use Type: None Hx Substance Use Treatment: No Review of Systems - Review of Systems Able to Perform ROS?: Yes Comments:: GENERAL/CONSTITUTIONAL: No fever or chills. +generalized weakness HEAD, EYES, EARS, NOSE AND THROAT: No change in vision. No change in hearing. No sore throat CARDIOVASCULAR: Denies CP; +SOB RESPIRATORY: +SOB, chronic cough; denies hemoptysis GASTROINTESTINAL: No nausea, vomiting, diarrhea or constipation GENITOURINARY: No dysuria, frequency, or change in urination MUSCULOSKELETAL: No joint or muscle swelling or pain. No neck or back pain SKIN: No rash NEUROLOGIC: No headache, vertigo, loss of consciousness, or change in strength/ sensation ENDOCRINE: No increased thirst. No abnormal weight change HEMATOLOGIC/LYMPHATIC: No anemia, easy bleeding, or history of blood clots ALLERGIC/IMMUNOLOGIC: No hives or skin allergy 08/18/19 18:18 Is the patient limited Algerian proficient: No *Physical Exam - Vital Signs Last Vital Signs Temp Pulse Resp BP Pulse Ox 97.9 F 105 H 20 147/73 89 L 08/18/19 17:41 08/18/19 17:41 08/18/19 17:41 08/18/19 17:41 08/18/19 17:41 - Physical Exam Comments: GENERAL: Awake, alert, and oriented to person/place/time, in no acute distress HEAD: No signs of trauma, normocephalic, atraumatic EYES: PERRLA, EOMI, sclera anicteric, conjunctiva clear ENT: Hearing grossly normal, nares patent, oropharynx clear without exudates. No uvular deviation LUNGS: on 2L NC (hypoxia w/ prolonged speech and w/o NC); No distress, speaks in full sentences, diminished breath sounds at b/l bases HEART: Regular rate and rhythm, normal S1 and S2, no murmurs appreciated, peripheral pulses normal and equal bilaterally ABDOMEN: Soft, nontender, normoactive bowel sounds. No guarding, no rebound EXTREMITIES: Normal inspection, Normal range of motion, no edema. No clubbing or cyanosis NEUROLOGICAL: Cranial nerves II through XII grossly intact. Normal speech, no focal sensorimotor deficits SKIN: Warm, Dry 08/18/19 18:19 ED Treatment Course - LABORATORY CBC & Chemistry Diagram: 08/18/19 18:41 08/18/19 18:41 - RADIOLOGY Radiology Studies Ordered: Category Date Time Status CHEST X-RAY PORTABLE* [RAD] Stat Radiology 08/18/19 18:17 Ordered Medical Decision Making - Medical Decision Making The pt is a 78F w/ a history of HFpEF, COPD (2L NC), HTN, HLD who presents for evaluation of 1 week of worsening shortness of breath and generalized weakness ED Course Labs sent ECG CXR 2L NC 08/18/19 18:23 CXR w/ b/l pulmonary vascular congestion -Will give Lasix 40mg IV once -BiPAP Trop I 0.08, likely demand -Pt w/o chest pain -Plt 48, will hold ASA BNP elevated at 2841 Mild leukopenia No anemia Mg 1.6, will replete ECG w/ RBBB; L ant fascicular block, left axis deviation; HR 99; QTc 500; TWI V1 -2, No acute change from previous ECG 08/18/19 19:57 Plan for admission CHF exacerbation Pt signed out to [facility] Admitting -Will admit to Med/Surg 08/18/19 22:00 Discharge - Discharge Information Problems reviewed: Yes Clinical Impression/Diagnosis: Thrombocytopenia CHF exacerbation Qualifiers: Heart failure type: diastolic Qualified Code(s): I50.33 - Acute on chronic diastolic (congestive) heart failure COPD (chronic obstructive pulmonary disease) Qualifiers: COPD type: unspecified COPD Qualified Code(s): J44.9 - Chronic obstructive pulmonary disease, unspecified Condition: Fair - Admission Yes - Follow up/Referral - Patient Discharge Instructions - Post Discharge Activity
[2019-08-18 18:59] LABS: BASO % 0.9 % (0-2.0); EOS % 0.8 % (0-4.5); HEMATOCRIT 39.7 % (32.4-45.2); HEMOGLOBIN 12.5 GM/dL (10.7-15.3); LYMPH % 10.7 % (8-40); MCHC 31.4 g/dl (32.0-36.0); MEAN CELL VOLUME 101.9 fl (80-96); MEAN PLT VOLUME 6.5 fl (7.5-11.1); NEUT % 79.6 % (42.8-82.8); PLATELET COUNT 48 K/MM3 (134-434); RBC 3.89 M/mm3 (3.60-5.2); RDW 17.1 % (11.6-15.6); WHITE BLOOD COUNT 3.4 K/mm3 (4.0-10.0)
[2019-08-18 19:13] LABS: INR 1.25 (0.83-1.09); PROTHROMBIN TIME (PATIENT) 14.8 SEC (9.7-13.0)
[2019-08-18 19:16] LABS: ACTIVATED PTT 46.5 SECONDS (25.2-36.5)
[2019-08-18 19:33] LABS: ALBUMIN 3.5 g/dl (3.4-5.0); BILIRUBIN,TOTAL 0.8 mg/dL (0.2-1); BLOOD UREA NITROGEN 15.8 mg/dL (7-18); CALCIUM 8.5 mg/dL (8.5-10.1); CREATININE 0.8 mg/dL (0.55-1.3); MAGNESIUM 1.6 mg/dL (1.8-2.4); N-TERMINAL BNP 2841.9 pg/ml (5-450); POTASSIUM 3.8 mmol/L (3.5-5.1); TOT PROT 6.8 g/dl (6.4-8.2)
[2019-08-18] MEDS ORDERED: FUROSEMIDE 40 MG/4 ML INJECTABLE VIAL IVPUSH ONE (19:33)
[2019-08-18] MEDS ORDERED: MAGNESIUM SULF 50% (8.12 MEQ/2 ML-1 GM VIAL) IVPB ONE (19:47)
--- NOTE | 2019-08-18 19:57 | PDOC ---
Attending Attestation - Resident Resident Name: Ayala Salinasan - ED Attending Attestation I have performed the following: I have examined & evaluated the patient, The case was reviewed & discussed with the resident, I agree w/resident's findings & plan - HPI HPI: 08/18/19 21:40 Pt comes with SOB and peripheral edema. CHF history - Physicial Exam PE: 08/18/19 21:40 Agree with resident exam - Medical Decision Making 08/18/19 21:40 CXR:Cardiomegaly; patchy effusions in the lung farrell. Pt improved on BiPAP. EKG: bifascicular block; sinus rhythm. Same as old EKG pattern 08/18/19 23:44 BNP slight elevation; trop elevation is chronic; pt has low MG+; she was repleted. 08/19/19 00:06 Pt is stable and she is awaiting a bed upstairs. Hospitalist team is aware of her
[2019-08-18] MEDS ORDERED: MAGNESIUM 1GM/D5W - 1 GM/100 ML IVPB IVPB ONE (20:01)
--- NOTE | 2019-08-18 21:32 | PN ---
Teaching Attending Note Name of Resident: Lauren Delgado ATTENDING PHYSICIAN STATEMENT I saw and evaluated the patient. I reviewed the resident's note and discussed the case with the resident. I agree with the resident's findings and plan as documented. SUBJECTIVE: 78 year old female with a history of liver cirrhosis, COPD on 2L home O2, pericardial effusion, hypertension, hyperlipidemia, DM, CHF reports feeling short of breath at home when she was not using her stationary oxygen tank. Reports dry cough, no sputum production. OBJECTIVE: Last Vital Signs Temp Pulse Resp BP Pulse Ox 97.9 F 90 24 H 156/78 98 08/18/19 17:46 08/18/19 20:10 08/18/19 20:10 08/18/19 20:10 08/18/19 22:18 general- comfortable, nad heent -moist oral mucosa neck -no jvd cv-s1+s2+rrr chest - distant breath sounds b/l ext - no clubbing or cyanosis, trace pedal edema Abnormal Lab Results 08/18/19 08/18/19 08/18/19 18:41 18:41 18:41 WBC 3.4 L MCV 101.9 H MCHC 31.4 L RDW 17.1 H Plt Count 48 L MPV 6.5 L D PT with INR 14.80 H INR 1.25 H PTT (Actin FS) 46.5 H Chloride Random Glucose Magnesium Troponin I 0.08 H B-Natriuretic Peptide 08/18/19 18:41 WBC MCV MCHC RDW Plt Count MPV PT with INR INR PTT (Actin FS) Chloride 108 H Random Glucose 111 H Magnesium 1.6 L Troponin I B-Natriuretic Peptide 2841.9 H ekg reviewed cxr reviewed ASSESSMENT AND PLAN: #Shortness of breath due to end stage COPD - was off oxygen while at home. Now feels fine and at her baseline after being placed on nasal cannula. Chest is clear. -med surg -social media senior associate intervention for portable oxygen -resume spiriva and duonebs prn if wheezing -supplemental oxygen via nasal canula -2L #CHF mild pulm vascular congestion, bnp decreased from previous-asymptomatic, does not appear to have exacerbation, denied orthopnea -resume metoprolol -furosemide 40mg daily -salt, free water restriction #History of pericardial effusion - asymptomatic -will repeat echo #Thrombocytopenia/anemia- Chronic likely still related to cardiac/hepatic cirrhosis and congestion/sequestration, evaluated by heme/onc before #tropinemia- no suspicion of acs, can be from demand ischemia, no chest pain, prior shortness of breath secondary to be off home o2 -repeat trop #DVT ppx scds
[2019-08-18] MEDS ORDERED: MAGNESIUM 1GM/D5W - 2 GM/200 ML IVPB IVPB ONE (21:47)
[2019-08-18] MEDS ORDERED: ALBUTEROL SO4 2.5/IPRATROPIUM 0.5 INH SOL 3 ML VIAL.NEB. NEB PRN (22:32)
[2019-08-18 22:58] LABS: ARTERIAL BLD GAS O2 SATURATION 93.3 % (95-98); ARTERIAL BLOOD GAS BASE EXCESS 3.6 meq/l (-2-2); ARTERIAL BLOOD GAS PCO2 50.1 mmHg (35-45); ARTERIAL BLOOD GAS pH 7.38 (7.35-7.45)
[2019-08-18 23:00] LABS: ALLENS TEST POSITIVE
--- NOTE | 2019-08-18 23:15 | HP ---
CHIEF COMPLAINT: SOB and general weakness PCP: HISTORY OF PRESENT ILLNESS: The pt is a 78F w/ a history of HFpEF, pericardial effusion, COPD (2L NC), OA who presents for evaluation of 1 week of worsening SOB/MULLIGAN w/ associated generalized weakness. She reports chronic cough productive cough, denies fevers , chest pain, BLE swelling, N/V/C/D, dysuria, hematuria, or blood in her stool. She tried taking one of her late 's Lasix with no relief. She has been using her nebulizer at home with no relief (none today). ER course was notable for: (1)CXR: Cardiomegaly; patchy effusions in the lung farrell. EKG: bifascicular block; sinus rhythm. 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,OA,NIDDM,chronic thrombocytopenia PAST SURGICAL HISTORY: ORIF right ankle, Umbilical hernia, Appendectomy, Cholecystectomy, carotid endarterectomy,cataract removal Social History: Smoking:former smoker, quite 14 yrs ago Alcohol:no Drugs: no Allergies No Known Drug Allergies Allergy (Verified 08/18/19 17:41) HOME MEDICATIONS: Home Medications Medication Instructions Recorded Ezetimibe/Simvastatin [Vytorin 1 each PO HS 05/03/12 10-20 mg Tablet] Metoprolol Succinate [Toprol XL -] 25 mg PO HS 05/03/12 Pregabalin [Lyrica] 100 mg PO HS 05/03/12 Cyanocobalamin [Vitamin B12 -] 1,000 mcg PO DAILY 06/18/14 Pantoprazole Sodium [Protonix -] 40 mg PO BID #60 tab 08/14/17 Glyburide 2.5 mg PO BID 06/27/19 Metformin HCl [Glucophage] 500 mg PO DAILY 06/27/19 Tiotropium [place] [Spiriva 1 inh IH DAILY 06/29/19 Respimat] Ferrous Sulfate [Iron] 325 mg PO DAILY 08/18/19 REVIEW OF SYSTEMS CONSTITUTIONAL: generalized weakness Absent: fever, chills, diaphoresis, malaise, loss of appetite, weight change HEENT: Absent: rhinorrhea, nasal congestion, throat pain, throat swelling, difficulty swallowing, mouth swelling, ear pain, eye pain, visual changes CARDIOVASCULAR: Absent: chest pain, syncope, palpitations, irregular heart rate, lightheadedness , peripheral edema RESPIRATORY: cough, shortness of breath, dyspnea with exertion Absent: orthopnea, wheezing, stridor, hemoptysis GASTROINTESTINAL: Absent: abdominal pain, abdominal distension, nausea, vomiting, diarrhea, constipation, melena, hematochezia GENITOURINARY: Absent: dysuria, frequency, urgency, hesitancy, hematuria, flank pain, genital pain MUSCULOSKELETAL: Absent: myalgia, arthralgia, joint swelling, back pain, neck pain SKIN: Absent: rash, itching, pallor HEMATOLOGIC/IMMUNOLOGIC: Absent: easy bleeding, easy bruising, lymphadenopathy, frequent infections ENDOCRINE: Absent: unexplained weight gain, unexplained weight loss, heat intolerance, cold intolerance NEUROLOGIC: Absent: headache, focal weakness or paresthesias, dizziness, unsteady gait, seizure, mental status changes, bladder or bowel incontinence PSYCHIATRIC: depression, Absent: anxiety, suicidal or homicidal ideation, hallucinations. PHYSICAL EXAMINATION Vital Signs - 24 hr 08/18/19 08/18/19 08/18/19 17:39 17:41 17:46 Temperature 97.9 F 97.9 F Pulse Rate 105 H Pulse Rate [ 97 H Right Brachial] Respiratory 20 18 Rate Blood Pressure 147/73 Blood Pressure 151/78 [Right Arm] O2 Sat by Pulse 91 L 89 L 91 L Oximetry (%) 08/18/19 08/18/19 08/18/19 18:21 20:10 22:18 Temperature Pulse Rate Pulse Rate [ 90 Right Brachial] Respiratory 24 H Rate Blood Pressure Blood Pressure 156/78 [Right Arm] O2 Sat by Pulse 91 L 93 L 98 Oximetry (%) GENERAL: Awake, alert, and fully oriented, in no acute distress. HEAD: Normal with no signs of trauma. EYES: Pupils equal, round and reactive to light, extraocular movements intact, sclera anicteric, conjunctiva clear. R eye ptosis EARS, NOSE, THROAT: Ears normal, nares patent, oropharynx clear without exudates. Dry mucous membranes. NECK: Normal range of motion, supple without lymphadenopathy, JVD, or masses. LUNGS: Breath sounds equal and distant, clear to auscultation bilaterally. No wheezes, and no crackles. No accessory muscle use. HEART: Regular rate and rhythm, normal S1 and S2 without murmur, rub or gallop. ABDOMEN: Soft, nontender, not distended, normoactive bowel sounds, no guarding, no rebound, no masses. No hepatomegaly or splenomegaly. MUSCULOSKELETAL: Normal range of motion at all joints. No bony deformities or tenderness. UPPER EXTREMITIES: 2+ pulses, warm, well-perfused. No cyanosis. No clubbing. No peripheral edema. LOWER EXTREMITIES: 2+ pulses, warm, well-perfused. No calf tenderness. 1+ peripheral edema to the mid gutierrez NEUROLOGICAL: Cranial nerves II-XII intact. Normal speech. Normal gait. PSYCHIATRIC: Cooperative. Good eye contact. Appropriate mood and affect. SKIN: Warm, dry, normal turgor, no rashes or lesions noted, normal capillary refill. Laboratory Results - last 24 hr 08/18/19 08/18/19 08/18/19 16:35 18:41 18:41 WBC RBC Hgb Hct MCV MCH MCHC RDW Plt Count MPV Absolute Neuts (auto) Neutrophils % Lymphocytes % Monocytes % Eosinophils % Basophils % Nucleated RBC % PT with INR 14.80 H INR 1.25 H PTT (Actin FS) 46.5 H Anticoagulation Therapy Puncture Site ABG pH ABG pCO2 at Pt Temp ABG pO2 at Pt Temp ABG HCO3 ABG O2 Sat (Measured) ABG O2 Content ABG Base Excess Nam Test O2 Delivery Device Oxygen Flow Rate Vent Mode Vent Rate Mechanical Rate Pressure Support Vent Sodium Potassium Chloride Carbon Dioxide Anion Gap BUN Creatinine Est GFR (CKD-EPI)AfAm Est GFR (CKD-EPI)NonAf Random Glucose Calcium Magnesium Total Bilirubin AST ALT Alkaline Phosphatase Creatine Kinase 29 Troponin I 0.08 H B-Natriuretic Peptide Cancelled Total Protein Albumin 08/18/19 08/18/19 08/18/19 18:41 18:41 18:41 WBC 3.4 L RBC 3.89 Hgb 12.5 Hct 39.7 MCV 101.9 H MCH 32.0 MCHC 31.4 L RDW 17.1 H Plt Count 48 L MPV 6.5 L D Absolute Neuts (auto) 2.7 Neutrophils % 79.6 D Lymphocytes % 10.7 D Monocytes % 8.0 Eosinophils % 0.8 Basophils % 0.9 Nucleated RBC % 0 PT with INR INR PTT (Actin FS) Anticoagulation Therapy Puncture Site ABG pH ABG pCO2 at Pt Temp ABG pO2 at Pt Temp ABG HCO3 ABG O2 Sat (Measured) ABG O2 Content ABG Base Excess Nam Test O2 Delivery Device Oxygen Flow Rate Vent Mode Vent Rate Mechanical Rate Pressure Support Vent Sodium 143 Potassium 3.8 Chloride 108 H Carbon Dioxide 27 Anion Gap 8 BUN 15.8 Creatinine 0.8 Est GFR (CKD-EPI)AfAm 81.27 Est GFR (CKD-EPI)NonAf 70.12 Random Glucose 111 H Calcium 8.5 Magnesium 1.6 L Cancelled Total Bilirubin 0.8 AST 20 ALT 13 Alkaline Phosphatase 68 Creatine Kinase Troponin I B-Natriuretic Peptide 2841.9 H Total Protein 6.8 Albumin 3.5 08/18/19 08/18/19 18:41 22:51 WBC RBC Hgb Hct MCV MCH MCHC RDW Plt Count MPV Absolute Neuts (auto) Neutrophils % Lymphocytes % Monocytes % Eosinophils % Basophils % Nucleated RBC % PT with INR Cancelled INR Cancelled PTT (Actin FS) Anticoagulation Therapy No Result Required. Puncture Site Right radial ABG pH 7.38 ABG pCO2 at Pt Temp 50.1 H ABG pO2 at Pt Temp 71.0 L ABG HCO3 29.0 H ABG O2 Sat (Measured) 93.3 L ABG O2 Content 14.7 ABG Base Excess 3.6 H Nam Test Positive O2 Delivery Device Bipap Oxygen Flow Rate [address] Vent Rate 14 Mechanical Rate No Result Required. Pressure Support Vent 12/4 Sodium Potassium Chloride Carbon Dioxide Anion Gap BUN Creatinine Est GFR (CKD-EPI)AfAm Est GFR (CKD-EPI)NonAf Random Glucose Calcium Magnesium Total Bilirubin AST ALT Alkaline Phosphatase Creatine Kinase Troponin I B-Natriuretic Peptide Total Protein Albumin ASSESSMENT/PLAN: The pt is a 78F w/ a history of HFpEF, pericardial effusion, COPD (2L NC), OA who presents for evaluation of 1 week of worsening SOB/MULLIGAN w/ associated generalized weakness. # Shortness of breath likely 2/2 COPD - off oxygen while at home because she states her tanks are too heavy to lift so she doesn't wear them around the house. - Now feels fine and at her baseline after being placed on nasal cannula. Chest is clear. - Conult social work instructor for portable oxygen - patient is otherwise active and mobile and feels depressed and like she can't do out and do activities without portable o2 as her tanks are too heavy to lift. -resume spiriva and duonebs prn if wheezing -supplemental oxygen via nasal canula -2L - BiPAP prn #CHF -asymptomatic, does not appear to have exacerbation, is not overtly volume overloaded on physical exam and breathing symptoms improved with supplemental O2 , patient reporting she feels back at her baseline. -resume metoprolol -furosemide 40mg po daily #History of pericardial effusion - asymptomatic -will repeat echo #Troponemia - slightly elevated troponin 0.08, likely 2/2 demand, will trend # Thrombocytopenia - chronic, was previously evaluated by Dr. Cunha - likely cause is 2/2 cirrhosis and splenomegaly related to her heart condition. #DVT ppx -heparin sc Visit type - Emergency Visit Emergency Visit: Yes ED Registration Date: 08/18/19 Care time: The patient presented to the Emergency Department on the above date and was hospitalized for further evaluation of their emergent condition. - New Patient This patient is new to me today: No - Critical Care Critical Care patient: No ATTENDING PHYSICIAN STATEMENT I saw and evaluated the patient. I reviewed the resident's note and discussed the case with the resident. I agree with the resident's findings and plan as documented. SUBJECTIVE: OBJECTIVE: ASSESSMENT AND PLAN:
[2019-08-19 01:36] VITALS: BMI 29.7
[2019-08-19] MEDS: INSULIN SLIDING SCALE (NOVOLOG) 1 VIAL SQ SCH ×4 (06:42→22:26)
[2019-08-19 06:50] LABS: HEMATOCRIT 35.9 % (32.4-45.2); HEMOGLOBIN 11.6 GM/dL (10.7-15.3); MCH 32.4 pg (25.7-33.7); MCHC 32.2 g/dl (32.0-36.0); MEAN CELL VOLUME 100.7 fl (80-96); MEAN PLT VOLUME 6.9 fl (7.5-11.1); PLATELET COUNT 47 K/MM3 (134-434); RBC 3.56 M/mm3 (3.60-5.2); RDW 16.7 % (11.6-15.6); WHITE BLOOD COUNT 2.2 K/mm3 (4.0-10.0)
[2019-08-19] MEDS ORDERED: FLU VACCINE QUAD 60 MCG/0.5 ML (MDV 19-20) IM ONE (07:00)
[2019-08-19 07:18] LABS: ALBUMIN 3.4 g/dl (3.4-5.0); BILIRUBIN,TOTAL 0.7 mg/dL (0.2-1); BLOOD UREA NITROGEN 12.5 mg/dL (7-18); CALCIUM 8.2 mg/dL (8.5-10.1); CREATININE 0.7 mg/dL (0.55-1.3); MAGNESIUM 1.7 mg/dL (1.8-2.4); PHOSPHOROUS 4.4 mg/dL (2.5-4.9); POTASSIUM 3.3 mmol/L (3.5-5.1); TOT PROT 6.1 g/dl (6.4-8.2)
[2019-08-19] MEDS ORDERED: PT OWN MED DRAWER 7, Y5N ONE ×2 (09:04→12:53)
[2019-08-19] MEDS: PANTOPRAZOLE 40 MG TABLET (FP) PO SCH (09:15)
[2019-08-19] MEDS: FUROSEMIDE 40 MG TABLET (FP) PO SCH (09:15)
[2019-08-19] MEDS: FERROUS SO4 325 MG TABLET (FP) PO SCH (09:15)
[2019-08-19] MEDS: CYANOCOBALAMIN 1,000 MCG TABLET (FP) PO SCH (09:15)
--- NOTE | 2019-08-19 09:46 | EKG ---
Test Reason : Blood Pressure : / mmHG Vent. Rate : 097 BPM Atrial Rate : 097 BPM P-R Int : 164 ms QRS Dur : 108 ms QT Int : 348 ms P-R-T Axes : 080 263 114 degrees QTc Int : 441 ms NORMAL SINUS RHYTHM WITH SINUS ARRHYTHMIA LEFT ANTERIOR FASCICULAR BLOCK INCOMPLETE RIGHT BUNDLE BRANCH BLOCK POOR R WAVE PROGRESSION CANNOT RULE OUT OLD ANTEROLATERAL INFARCT, AGE UNDETERMINED Confirmed by LENNY SUTTON, JIMMY ([id number]) on 08/19/2019 9:45:57 AM Referred By: Confirmed By:JIMMY GALVEZ MD
--- NOTE | 2019-08-19 09:48 | CON.CARD ---
Consult Consult Specialty:: Cardiology Referred by:: Dr. Nelson Reason for Consultation:: SOB - History of Present Illness Chief Complaint: SOB x 1 week History of Present Illness: 78F h/o anemia, thrombocytopenia, pericardial effusion, HTN, HLD, COPD, admitted with one week of increased MULLIGAN, exertional fatigue. Denies chest pain, orthopnea, edema, no fever, chills or change in cough. Afebrile and normotensive here. Has not been using her O2 consistently at home. From a cardiac standpoint, several recent echoes in May and June have shown Moderate , mild AR, normal EF with evidence of diastolic dysfx and a moderate , stable pericardial effusion (unchanged from May to June) with no evidence of tamponade. Echo was reviewed with both CT Surgery (Dr. Hatfield) and Interventional Cardiology (Dr. Quarles). Given the stability, absence of tamponade and low platelets conservative measures were recommended and we have been performing serial echo f/u. Rheum work up, TSH and chest CT have been unremarkable. A mammogram had been planned as well. 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 Flores, medical management and US surveillance. Left carotid stenosis s/p CEA. 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 Cardio/Vascular: Yes: CAD (had cardiac cath with a single completely occluded artery ( per patient)), HTN, Hyperlipdemia, ND, Other (AAA 4.4cm) 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 ?) ...: No Musculoskeletal: Yes: Osteoarthritis Endocrine: Yes: Diabetes Mellitus - Past Surgical History Past Surgical History: Yes: Appendectomy (during cholecystectomy ?), Carotid Endarterectomy (Left 2014), Cataract Removal, Cholecystectomy, Colonoscopy, Hernia Repair (Umbilical), Tonsillectomy, Upper Endoscopy - Alcohol/Substance Use Hx Alcohol Use: No History of Substance Use: reports: None - Smoking History Smoking history: Former smoker Have you smoked in the past 12 months: No If you are a former smoker, when did you quit?: 2001 - Social History Usual Living Arrangement: Alone ( 7 months ago) ADL: Independent 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 History of Recent Travel: No Home Medications - Allergies Allergies/Adverse Reactions: Allergies Allergy/AdvReac Type Severity Reaction Status Date / Time No Known Drug Allergies Allergy Verified 08/18/19 17:41 - Home Medications Home Medications: Ambulatory Orders Ezetimibe/Simvastatin [Vytorin 10-20 mg Tablet] 1 each PO HS 05/03/12 Metoprolol Succinate [Toprol XL -] 25 mg PO HS 05/03/12 Pregabalin [Lyrica] 100 mg PO HS 05/03/12 Cyanocobalamin [Vitamin B12 -] 1,000 mcg PO DAILY 06/18/14 Pantoprazole Sodium [Protonix -] 40 mg PO BID #60 tab 08/14/17 Glyburide 2.5 mg PO BID 06/27/19 Metformin HCl [Glucophage] 500 mg PO DAILY 06/27/19 Tiotropium [place] [Spiriva Respimat] 1 inh IH DAILY 06/29/19 Ferrous Sulfate [Iron] 325 mg PO DAILY 08/18/19 Family Medical History Family History: Unremarkable Review of Systems Findings/Remarks: see HPI - Review of Systems Constitutional: reports: Weakness Eyes: reports: No Symptoms HENT: reports: No Symptoms Neck: reports: No Symptoms Cardiovascular: reports: Shortness of Breath Respiratory: reports: Exercise Intolerance, SOB on Exertion Gastrointestinal: denies: No Symptoms, Abdominal Pain, Bloating, Constipation, Diarrhea, Dysphagia, Indigestion, Melena, Nausea, Rectal Bleeding, Vomiting, Vomiting Blood, Other Genitourinary: denies: No Symptoms, Burning, Discharge, Dysuria, Flank Pain, Frequency, Hematuria, Incontinence, Lesions, Menses, Pain, Testicular Mass, Testicular Pain, Testicular Swelling, Urgency, Vaginal Bleeding, Other Breasts: denies: No Symptoms Reported, See HPI, Breast Implants, Discharge from Nipple, Lumps, Pain, Skin Changes, Other Musculoskeletal: denies: No Symptoms, Back Pain, Crepitus, Decreased ROM, Extremity Pain, Joint Pain, Joint Swelling, Muscle Pain, Muscle Cramps, Muscle Weakness, Other Integumentary: denies: No Symptoms, Blister, Bruising, Change in Color, Eczema, Erythema, Incision, Lesions, Lump, Pallor, Pruritis, Rash, Wound, Other Neurological: denies: No Symptoms, Change in LOC, Change in Speech, Confusion, Dizziness, Headache, Incoordination, Numbness, Parasthesia, Pre-Existing Deficit , Seizure, Syncope, Tremors, Unsteady Gait, Weakness, Other Endocrine: denies: No Symptoms, Excessive Sweating, Flushing, Increased Hunger, Increased Thirst, Intolerance to Cold, Intolerance to Heat, Unexplained Weight Gain, Unexplained Weight Loss, Other Hematology/Lymphatic: denies: No Symptoms, Easily Bruised, Excessive Bleeding, Swollen Glands, Other Psychiatric: denies: No Symptoms, Altered Sleep Pattern, Anxiety, Depression, Hallucinations, Panic, Paranoia, Suicidal, Other - Risk Factors Known Risk Factors: Yes: Diabetes Mellitus, Hypertension, Smoking, Other (known CAD) Vital Signs: Vital Signs Temperature 98.0 F 08/19/19 05:50 Pulse Rate 80 08/19/19 08:27 Respiratory Rate 20 08/19/19 05:50 Blood Pressure 115/63 08/19/19 05:50 O2 Sat by Pulse Oximetry (%) 93 L 08/19/19 08:27 Constitutional: Yes: No Distress Eyes: Yes: Conjunctiva Clear, EOM Intact Respiratory: Yes: Other (decreased breath sounds b/l c/w COPD. No active wheezing. No rales) Gastrointestinal: Yes: Soft JVD: No Carotid Bruit: No Heart Sounds: Yes: S1, S2 (RRR, 2/6 JOSE RSB) Edema: No Peripheral Pulses WNL: Yes Neurological: Yes: Alert, Oriented ...Motor Strength: WNL Psychiatric: Yes: WNL - Other Data Labs, Other Data: CBC, BMP 08/19/19 06:10 08/19/19 06:10 INR, PTT INR 1.25 (0.83-1.09) H 10/05/19 18:41 Troponin, BNP 08/18/19 08/18/19 08/18/19 16:35 18:41 18:41 Troponin I 0.08 H B-Natriuretic Peptide Cancelled 2841.9 H 08/19/19 06:10 Troponin I 0.08 H B-Natriuretic Peptide Troponin, BNP 08/18/19 08/18/19 08/18/19 16:35 18:41 18:41 Troponin I 0.08 H B-Natriuretic Peptide Cancelled 2841.9 H 08/19/19 06:10 Troponin I 0.08 H B-Natriuretic Peptide Laboratory Tests 08/18/19 08/18/19 08/18/19 18:41 18:41 18:41 WBC Hgb Plt Count PT with INR 14.80 H INR 1.25 H PTT (Actin FS) 46.5 H ABG pH ABG pCO2 at Pt Temp ABG pO2 at Pt Temp Nam Test O2 Delivery Device Oxygen Flow Rate Sodium Potassium Creatinine Random Glucose Calcium Magnesium Creatine Kinase 29 Troponin I 0.08 H B-Natriuretic Peptide 2841.9 H 08/18/19 08/19/19 08/19/19 22:51 06:10 06:10 WBC 2.2 L Hgb 11.6 Plt Count 47 L PT with INR INR PTT (Actin FS) ABG pH 7.38 ABG pCO2 at Pt Temp 50.1 H ABG pO2 at Pt Temp 71.0 L Nam Test Positive O2 Delivery Device Bipap Oxygen Flow Rate 35 Sodium 145 Potassium 3.3 L Creatinine 0.7 Random Glucose 106 Calcium 8.2 L Magnesium 1.7 L Creatine Kinase Troponin I B-Natriuretic Peptide 08/19/19 06:10 WBC Hgb Plt Count PT with INR INR PTT (Actin FS) ABG pH ABG pCO2 at Pt Temp ABG pO2 at Pt Temp Nam Test O2 Delivery Device Oxygen Flow Rate Sodium Potassium Creatinine Random Glucose Calcium Magnesium Creatine Kinase Troponin I 0.08 H B-Natriuretic Peptide Laboratory Tests 06/27/19 07/10/19 08/18/19 15:06 17:15 18:41 B-Natriuretic Peptide 499.1 H 3018.3 H 2841.9 H Echo: Report Reviewed Prior Cardiac Procedures: Cardiac Catheterization Ejection Fraction %: LVEF > or = 40 % Imaging - Results Chest X-ray: Image Reviewed (Increased PVC, cardiomegaly, prob small b/l effusions) Cat Scan: Report Reviewed Assessment/Plan IMP: Probable acute on chronic exacerbation diastolic CHF Known chronic moderate pericardial effusion, no tamponade (-SAADIA/ESR/TSH, recent chest CT no mass) CAD s/p ND and prior cath (remote)- anatomy not amenable to revasc per her report Chronic COPD AAA of 4.5cm followed by Vascular DM Cirrhosis Chronic thrombocytopenia REC: 1. BNP is sig elevated June (previously 500 now close to 3K) w/ CXR showing congestion. Continue Lasix, received 40mg IV x1 now on PO. Clinically does not appear grossly volume overloaded, should improve further with continued standing oral dosing. 2. Repeat echo in AM to assess pericardial effusion; clinically does not appear to be in tamponade. Office records to be reviewed to review when last ischemic work up was. The mildly elevated/borderline flat TnI elevation is likely due to CHF and subendocardial ischemia due to elevated EDP; do not suspect ACS. 3. Continue Toprol for HTN/AAA which has been recently imaged here and is under Vascular surveillance (Sandra). 4. Not on ASA for CAD due to h/o GI, including recent admission for anemia and GIB. 5. Pulmonary evaluation pending for her COPD. Will follow. Thank you.
[2019-08-19] MEDS ORDERED: ENOXAPARIN NA (PORCINE) 40 MG/0.4 ML DISP.SYRIN SQ SCH (10:00)
--- NOTE | 2019-08-19 12:19 | CON.PULM ---
Consult - History of Present Illness History of Present Illness: The pt is a 78F w/ a history of HFpEF, pericardial effusion, COPD (2L NC), OA, chronic thrombocytopenia,splenomegaly, who presents for evaluation of 1 week of worsening SOB/MULLIGAN w/ associated generalized weakness. She reports chronic cough productive cough, denies fevers, chest pain, BLE swelling, N/V/C/D, dysuria, hematuria, or blood in her stool. She tried taking one of her late 's Lasix with no relief. She has been using her nebulizer at home with no relief ( none today). 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 No: Alzheimer's Cardio/Vascular: Yes: CAD (had cardiac cath with a single completely occluded artery ( per patient)), HTN, Hyperlipdemia, [place], Other (AAA 4.4cm). 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 ?) ...: No Musculoskeletal: Yes: Osteoarthritis Endocrine: Yes: Diabetes Mellitus - Past Surgical History Past Surgical History: Yes: Appendectomy (during cholecystectomy ?), Carotid Endarterectomy (Left 2014), Cataract Removal, Cholecystectomy, Colonoscopy, Hernia Repair (Umbilical), Tonsillectomy, Upper Endoscopy - Alcohol/Substance Use Hx Alcohol Use: No History of Substance Use: reports: None - Smoking History Smoking history: Former smoker Have you smoked in the past 12 months: No If you are a former smoker, when did you quit?: 2001 - Social History Usual Living Arrangement: Alone ( 7 months ago) ADL: Independent 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 History of Recent Travel: No Home Medications - Allergies Allergies/Adverse Reactions: Allergies Allergy/AdvReac Type Severity Reaction Status Date / Time No Known Drug Allergies Allergy Verified 08/18/19 17:41 - Home Medications Home Medications: Ambulatory Orders Ezetimibe/Simvastatin [Vytorin 10-20 mg Tablet] 1 each PO HS 05/03/12 Metoprolol Succinate [Toprol XL -] 25 mg PO HS 05/03/12 Pregabalin [Lyrica] 100 mg PO HS 05/03/12 Cyanocobalamin [Vitamin B12 -] 1,000 mcg PO DAILY 06/18/14 Pantoprazole Sodium [Protonix -] 40 mg PO BID #60 tab 08/14/17 Glyburide 2.5 mg PO BID 06/27/19 Metformin HCl [Glucophage] 500 mg PO DAILY 06/27/19 Tiotropium [place] [Spiriva Respimat] 1 inh IH DAILY 06/29/19 Ferrous Sulfate [Iron] 325 mg PO DAILY 08/18/19 Review of Systems - Review of Systems Constitutional: denies: Fever Eyes: denies: Blurred Vision HENT: denies: Difficult Swallowing Neck: denies: Decreased ROM Cardiovascular: reports: Shortness of Breath. denies: Chest Pain Respiratory: reports: Cough, Exercise Intolerance, SOB on Exertion. denies: Hemoptysis, Wheezing Physical Exam Vital Sings: Vital Signs Temperature 98.0 F 08/19/19 05:50 Pulse Rate 80 08/19/19 08:27 Respiratory Rate 20 08/19/19 05:50 Blood Pressure 115/63 08/19/19 05:50 O2 Sat by Pulse Oximetry (%) 93 L 08/19/19 08:27 Constitutional: Yes: Calm Eyes: Yes: EOM Intact HENT: Yes: Normocephalic Neck: Yes: Trachea Midline Cardiovascular: Yes: Regular Rate and Rhythm, S1, S2 Respiratory: Yes: Diminished (at bases) Gastrointestinal: Yes: Normal Bowel Sounds Edema: No Neurological: Yes: Alert Psychiatric: Yes: Alert Labs: CBC, BMP 08/19/19 06:10 08/19/19 06:10 ABG Results ABG pH 7.38 (7.35-7.45) 08/18/19 22:51 ABG pCO2 at Pt Temp 50.1 mmHg (35-45) H 08/18/19 22:51 ABG pO2 at Pt Temp 71.0 mmHg (80-100) L 08/18/19 22:51 ABG HCO3 29.0 mmol/L (22-27) H 08/18/19 22:51 ABG O2 Sat (Measured) 93.3 % (95-98) L 08/18/19 22:51 ABG O2 Content 14.7 % vol 08/18/19 22:51 ABG Base Excess 3.6 meq/l (-2-2) H 08/18/19 22:51 Imaging - Results Chest X-ray: Report Reviewed, Image Reviewed EKG: Report Reviewed, Image Reviewed Problem List - Problems (1) CHF exacerbation Code(s): I50.9 - HEART FAILURE, UNSPECIFIED Qualifiers: Heart failure type: diastolic Qualified Code(s): I50.33 - Acute on chronic diastolic (congestive) heart failure (2) COPD (chronic obstructive pulmonary disease) Code(s): J44.9 - CHRONIC OBSTRUCTIVE PULMONARY DISEASE, UNSPECIFIED Qualifiers: COPD type: unspecified COPD Qualified Code(s): J44.9 - Chronic obstructive pulmonary disease, unspecified (3) Thrombocytopenia Code(s): D69.6 - THROMBOCYTOPENIA, UNSPECIFIED (4) Acute on chronic respiratory failure with hypoxemia Code(s): J96.21 - ACUTE AND CHRONIC RESPIRATORY FAILURE WITH HYPOXIA (5) Dieulafoy lesion of duodenum Code(s): K31.82 - DIEULAFOY LESION (HEMORRHAGIC) OF STOMACH AND DUODENUM (6) HLD (hyperlipidemia) Code(s): E78.5 - HYPERLIPIDEMIA, UNSPECIFIED (7) Anemia Code(s): D64.9 - ANEMIA, UNSPECIFIED Qualifiers: Anemia type: unspecified type Qualified Code(s): D64.9 - Anemia, unspecified (8) Cirrhosis of liver Code(s): K74.60 - UNSPECIFIED CIRRHOSIS OF LIVER Assessment/Plan A/E CHF COPD STABLE POSSIBLE MILD BRONCHITIS RESOLVING PERICARDIAL EFFUSION APPEARS STABLE PLTS UPPER 40K HOLDING STEADY DM NO SIGNS OF GI BLEEDING AT THIS TIME AGREE WITH CURRENT PLAN FOR ECHO O2/BRONCHODILATORS NEEDED ? STRESS DURING THIS ADMISSION Sami LEE MD
[2019-08-19] MEDS ORDERED: INSULIN (NOVOLOG) ASPART 100 UNITS/ML 10ML VIAL ONE (12:50)
[2019-08-19] MEDS: TIOTROPIUM BROMIDE 2.5 MCG (SPIRIVA) RESPIMAT INHALER IH SCH (12:54)
[2019-08-19] MEDS: POTASSIUM CHLORIDE TABS 20 MEQ TABLET.ER (FP) PO SCH (12:54)
--- NOTE | 2019-08-19 13:34 | PN ---
Progress Note, Physician Chief Complaint: SOB CHF - Current Medication List Current Medications: Active Medications Acetaminophen (Tylenol -) 650 mg PO Q4H PRN PRN Reason: PAIN OR FEVER Albuterol/Ipratropium (Duoneb -) 1 amp NEB Q6H PRN PRN Reason: SHORTNESS OF BREATH Cyanocobalamin (Vitamin B12 -) 1,000 mcg PO DAILY [facility] Last Admin: 08/19/19 09:15 Dose: 1,000 mcg Ferrous Sulfate (Feosol -) 325 mg PO DAILY [facility] Last Admin: 08/19/19 09:15 Dose: 325 mg Furosemide (Lasix -) 40 mg PO DAILY [facility] Last Admin: 08/19/19 09:15 Dose: 40 mg Insulin Aspart (Novolog Vial Sliding Scale -) 1 vial SQ ACHS [facility]; Protocol Last Admin: 08/19/19 12:52 Dose: Not Given Metoprolol Succinate (Toprol Xl -) 25 mg PO HS [facility] Pantoprazole Sodium (Protonix -) 40 mg PO DAILY [facility] Last Admin: 08/19/19 09:15 Dose: 40 mg Potassium Chloride (K-Dur -) 20 meq PO DAILY [facility] Last Admin: 08/19/19 12:54 Dose: 20 meq Pregabalin (Lyrica -) 100 mg PO HS [facility] Tiotropium [place] (Spiriva Respimat) 2 puff IH DAILY [facility] Last Admin: 08/19/19 12:54 Dose: 2 puff - Objective Vital Signs: Vital Signs Temperature 98.0 F 08/19/19 05:50 Pulse Rate 80 08/19/19 08:27 Respiratory Rate 20 08/19/19 05:50 Blood Pressure 115/63 08/19/19 05:50 O2 Sat by Pulse Oximetry (%) 93 L 08/19/19 08:27 Labs: CBC, BMP 08/19/19 06:10 08/19/19 06:10 INR, PTT INR 1.25 (0.83-1.09) H 08/18/19 18:41
[2019-08-19] MEDS: ACETAMINOPHEN 325 MG TABLET (FP) PO PRN (20:10)
[2019-08-19] MEDS ORDERED: NYSTATIN POWDER 100,000 UNITS/GM - 15 GM TOPICAL POWDER TP ONE (22:10)
[2019-08-19] MEDS: metoPROLOL SUCCINATE 25 MG TAB.SR.24H (FP) PO SCH (22:18)
[2019-08-19] MEDS: PREGABALIN 100 MG CAPSULE PO SCH (22:18)
[2019-08-20] MEDS: INSULIN SLIDING SCALE (NOVOLOG) 1 VIAL SQ SCH ×4 (07:30→22:11)
[2019-08-20] MEDS: CYANOCOBALAMIN 1,000 MCG TABLET (FP) PO SCH (09:23)
[2019-08-20] MEDS: PANTOPRAZOLE 40 MG TABLET (FP) PO SCH (09:23)
[2019-08-20] MEDS: FERROUS SO4 325 MG TABLET (FP) PO SCH (09:23)
[2019-08-20] MEDS: POTASSIUM CHLORIDE TABS 20 MEQ TABLET.ER (FP) PO SCH (09:23)
[2019-08-20] MEDS: TIOTROPIUM BROMIDE 2.5 MCG (SPIRIVA) RESPIMAT INHALER IH SCH (09:24)
--- NOTE | 2019-08-20 10:38 | PN ---
Progress Note, Physician Chief Complaint: Acute on Chronic CHF Exacerbation SOB History of Present Illness: Previous notes and events reviewed awake and alert NAD sts her breathing is improving with O2 via NC productive cough with clear sputum c/o feeling weak - Current Medication List Current Medications: Active Medications Acetaminophen (Tylenol -) 650 mg PO Q4H PRN PRN Reason: PAIN OR FEVER Last Admin: 08/19/19 20:10 Dose: 650 mg Albuterol/Ipratropium (Duoneb -) 1 amp NEB Q6H PRN PRN Reason: SHORTNESS OF BREATH Cyanocobalamin (Vitamin B12 -) 1,000 mcg PO DAILY [facility] Last Admin: 08/20/19 09:23 Dose: 1,000 mcg Ferrous Sulfate (Feosol -) 325 mg PO DAILY [facility] Last Admin: 08/20/19 09:23 Dose: 325 mg Furosemide (Lasix -) 40 mg PO DAILY [facility] Last Admin: 08/19/19 09:15 Dose: 40 mg Insulin Aspart (Novolog Vial Sliding Scale -) 1 vial SQ [facility]; Protocol Last Admin: 08/20/19 07:30 Dose: Not Given Metoprolol Succinate (Toprol Xl -) 25 mg PO [facility] Last Admin: 08/19/19 22:18 Dose: 25 mg Pantoprazole Sodium (Protonix -) 40 mg PO DAILY [facility] Last Admin: 08/20/19 09:23 Dose: 40 mg Potassium Chloride (K-Dur -) 20 meq PO DAILY [facility] Last Admin: 08/20/19 09:23 Dose: 20 meq Pregabalin (Lyrica -) 100 mg PO [facility] Last Admin: 08/19/19 22:18 Dose: 100 mg Tiotropium [place] (Spiriva Respimat) 2 puff IH DAILY [facility] Last Admin: 08/20/19 09:24 Dose: 2 puff - Objective Vital Signs: Vital Signs Temperature 97.9 F 08/20/19 07:00 Pulse Rate 81 08/20/19 07:00 Respiratory Rate 20 08/20/19 07:00 Blood Pressure 95/57 L 08/20/19 07:00 O2 Sat by Pulse Oximetry (%) 94 L 08/19/19 21:00 Constitutional: Yes: No Distress, Calm Eyes: Yes: Conjunctiva Clear HENT: Yes: Atraumatic Cardiovascular: Yes: Regular Rate and Rhythm Respiratory: Yes: Regular, Diminished, On Nasal O2 Gastrointestinal: Yes: Normal Bowel Sounds, Soft Musculoskeletal: Yes: Muscle Weakness Extremities: Yes: WNL Edema: No Neurological: Yes: Alert, Oriented Psychiatric: Yes: Alert, Oriented Labs: CBC, BMP 08/19/19 06:10 08/19/19 06:10 INR, PTT INR 1.25 (0.83-1.09) H 08/18/19 18:41 Problem List - Problems (1) CHF exacerbation Assessment/Plan: -Cardiology on board -Bronchodilators -O2 via NC -Furosemide -BNP 2841.9 -1L fluid restriction -daily weights -Echocardiogram Code(s): I50.9 - HEART FAILURE, UNSPECIFIED Qualifiers: Heart failure type: diastolic Qualified Code(s): I50.33 - Acute on chronic diastolic (congestive) heart failure (2) COPD (chronic obstructive pulmonary disease) Assessment/Plan: -Pulm on board -CXR shows congestive changes with some bibasilar atelectasis/infiltrates with fluid, left more affected then right -Bronchodilators -O2 via NC -Spiriva -keep SpO2 >90% Code(s): J44.9 - CHRONIC OBSTRUCTIVE PULMONARY DISEASE, UNSPECIFIED Qualifiers: COPD type: unspecified COPD Qualified Code(s): J44.9 - Chronic obstructive pulmonary disease, unspecified (3) SOB (shortness of breath) Assessment/Plan: -Pulm on board -CXR shows congestive changes with some bibasilar atelectasis/infiltrates with fluid, left more affected then right -Bronchodilators -O2 via NC -Spiriva -keep SpO2 >90% Code(s): R06.02 - SHORTNESS OF BREATH (4) CAD (coronary artery disease) Assessment/Plan: -no Aspirin because hx of GI bleed Code(s): I25.10 - ATHSCL HEART DISEASE OF [place] CORONARY ARTERY W/O ANG PCTRS Qualifiers: Coronary Disease-Associated Artery/Lesion type: [place] artery [place] vs. transplanted heart: [place] heart Associated angina: without angina Qualified Code(s): I25.10 - Atherosclerotic heart disease of [place] coronary artery without angina pectoris (5) Diabetes Assessment/Plan: -BGM ACHS -ISS -Diabetic diet Code(s): E11.9 - TYPE 2 DIABETES MELLITUS WITHOUT COMPLICATIONS Qualifiers: Diabetes mellitus type: type 2 (6) HTN (hypertension) Assessment/Plan: -Metoprolol Code(s): I10 - ESSENTIAL (PRIMARY) HYPERTENSION Qualifiers: Hypertension type: essential hypertension Qualified Code(s): I10 - Essential (primary) hypertension (7) Aneurysm of infrarenal abdominal aorta Assessment/Plan: -vascular consult Code(s): I71.4 - ABDOMINAL AORTIC ANEURYSM, WITHOUT RUPTURE
--- NOTE | 2019-08-20 11:08 | PN ---
Progress Note (short form) - Note Progress Note: PULMONARY States breathing better. +cough with clear sputum. No fevers or chills. Vital Signs Period Temp Pulse Resp BP Sys/Rider Pulse Ox Last 24 Hr 97.9 F-98.5 F 81-88 18-20 95-125/52-83 94-95 Gen: NAD at rest Heart: RRR Lung: decreased breath sounds at the bases, no wheezes Abd: soft, nontender Ext: no edema CBC, BMP 08/19/19 06:10 08/19/19 06:10 Active Medications Acetaminophen (Tylenol -) 650 mg PO Q4H PRN PRN Reason: PAIN OR FEVER Last Admin: 08/19/19 20:10 Dose: 650 mg Albuterol Sulfate (Ventolin 0.083% Nebulizer Soln -) 1 amp NEB RTID [facility] Cyanocobalamin (Vitamin B12 -) 1,000 mcg PO DAILY [facility] Last Admin: 08/20/19 09:23 Dose: 1,000 mcg Ferrous Sulfate (Feosol -) 325 mg PO DAILY [facility] Last Admin: 08/20/19 09:23 Dose: 325 mg Furosemide (Lasix -) 40 mg PO DAILY [facility] Last Admin: 08/19/19 09:15 Dose: 40 mg Insulin Aspart (Novolog Vial Sliding Scale -) 1 vial SQ ACHS [facility]; Protocol Last Admin: 08/20/19 07:30 Dose: Not Given Metoprolol Succinate (Toprol Xl -) 25 mg PO HS [facility] Last Admin: 08/19/19 22:18 Dose: 25 mg Nystatin (Nystop Powder -) 1 applic TP DAILY [facility] Pantoprazole Sodium (Protonix -) 40 mg PO DAILY [facility] Last Admin: 08/20/19 09:23 Dose: 40 mg Potassium Chloride (K-Dur -) 20 meq PO DAILY [facility] Last Admin: 08/20/19 09:23 Dose: 20 meq Pregabalin (Lyrica -) 100 mg PO HS [facility] Last Admin: 08/19/19 22:18 Dose: 100 mg Tiotropium [place] (Spiriva Respimat) 2 puff IH DAILY [facility] Last Admin: 08/20/19 09:24 Dose: 2 puff A/P Acute Bronchitis LV Diastolic Dysfunction COPD Chronic Hypoxic Respiratory Failure Pericardial Effusion Thrombocytopenia Leukopenia DM - f/u echocardiogram - continue lasix - monitor urine output, creatinine - O2 to keep SpO2 >90% - inhaled bronchodilators - d/c BiPAP - DVT prophylaxis
[2019-08-20] MEDS: FUROSEMIDE 40 MG TABLET (FP) PO SCH (11:16)
[2019-08-20] MEDS: NYSTATIN POWDER 100,000 UNITS/GM - 15 GM TOPICAL POWDER TP SCH (11:16)
[2019-08-20] MEDS: ALBUTEROL SO4 0.083% IH SOL 2.5 MG/3 ML VIAL.NEB. NEB SCH ×3 (11:40→20:10)
--- NOTE | 2019-08-20 12:04 | ECHO ---
Name: REINIER MOORE Exam:Adult Echocardiogram Study Date: 08/20/2019 07:41 AM Age: 78 yrs Reason For Study: Pericardial Effusion Height: 67 in Weight: 190 lb BSA: 2.0 m2 MMode/2D Measurements & Calculations IVSd: 1.3 cm Ao root diam: 2.6 cm LVIDd: 5.4 cm LA dimension: 4.9 cm LVIDs: 4.2 cm LVPWd: 1.2 cm EDV(Teich): 143.2 ml LVOT diam: 2.0 cm ESV(Teich): 79.0 ml LAV (MOD-bp): 82.3 ml RV S Nigel: 16.0 cm/sec Doppler Measurements & Calculations MV E max nigel: 137.0 cm/sec MVA(VTI): 1.6 cm2 MV A max nigel: 124.7 cm/sec MV V2 max: 156.4 cm/sec MV E/A: 1.1 MV max P.8 mmHg MV dec time: 0.19 sec MV V2 mean: 99.8 cm/sec MV mean P.5 mmHg MV V2 VTI: 40.4 cm Ao V2 max: 261.0 cm/sec LV V1 max P.5 mmHg Ao max P.3 mmHg LV V1 mean P.2 mmHg Ao V2 mean: 185.5 cm/sec LV V1 max: 93.8 cm/sec Ao mean P.7 mmHg LV V1 mean: 70.7 cm/sec Ao V2 VTI: 55.0 cm LV V1 VTI: 20.8 cm LUIS(I,D): 1.2 cm2 LUIS(V,D): 1.1 cm2 MR max nigel: 422.2 cm/sec SV(LVOT): 64.9 ml MR max P.0 mmHg TR max nigel: 299.4 cm/sec PA V2 max: 148.0 cm/sec TR max P.0 mmHg PA max P.8 mmHg Med Peak E' Nigel: 3.4 cm/sec PI Vmax: 84.2 cm/sec Med E/e': 40.6 Lat Peak E' Nigel: 3.6 cm/sec Lat E/e': 38.2 Procedure A complete two-dimensional transthoracic echocardiogram was performed (2D, M-mode, Doppler and color flow Doppler). Left Ventricle The left ventricle is normal in size. There is mild concentric left ventricular hypertrophy. Left giovanna tricular systolic function is low normal. Ejection Fraction = 50-55%. No regional wall motion abnormalities no tatiana. Right Ventricle The right ventricle is normal size. The right ventricular systolic function is normal. RV systolic TD I is 16 cm/s. Atria The left atrium is moderately dilated. LA volume index is 42 ml/m2. The right atrium is mildly dilate d. Mitral Valve There is severe mitral annular calcification. There is mild mitral valve thickening. There is mild to moderate mitral regurgitation. Tricuspid Valve The tricuspid valve is normal in structure and function. There is moderate tricuspid regurgitation. P ulmonary artery systolic pressure is at least 45 mmHg assuming RA pressure of 3 mmHg. Aortic Valve There is moderate aortic valve thickening. Moderate valvular aortic stenosis. The calculated aortic v alve area using the continuity equation is 1.1 cm2. Aortic mean pressure gradient= 17 mmHg. DI (dimensionless i ndex) is estimated 0.35. Mild aortic regurgitation. Pulmonic Valve The pulmonic valve is not well visualized. Great Vessels The aortic root is normal size. Pericardium/Pleura Large pericardial effusion (>2 cm). The echo/Doppler findings are inconclusive for cardiac tamponade. Interpretation Summary The left ventricle is normal in size. There is mild concentric left ventricular hypertrophy. Left ventricular systolic function is low normal. No regional wall motion abnormalities noted. Ejection Fraction = 50-55%. The right ventricular systolic function is normal. The left atrium is moderately dilated. The right atrium is mildly dilated. There is severe mitral annular calcification. There is mild mitral valve thickening. There is mild to moderate mitral regurgitation. There is moderate tricuspid regurgitation. Pulmonary artery systolic pressure is at least 45 mmHg assuming RA pressure of 3 mmHg There is moderate aortic valve thickening. Moderate valvular aortic stenosis. The calculated aortic valve area using the continuity equation is 1.1 cm2. Aortic mean pressure gradient= 17 mmHg DI (dimensionless index) is estimated 0.35 Mild aortic regurgitation. Large pericardial effusion (>2 cm) The echo/Doppler findings are inconclusive for cardiac tamponade. When compared to study dated 07/11/19, no significant changes Noam Pereira MD 08/20/2019 12:03 PM
--- NOTE | 2019-08-20 16:16 | EKG ---
Test Reason : Blood Pressure : / mmHG Vent. Rate : 099 BPM Atrial Rate : 099 BPM P-R Int : 148 ms QRS Dur : 134 ms QT Int : 390 ms P-R-T Axes : 059 -66 050 degrees QTc Int : 500 ms NORMAL SINUS RHYTHM WITH SINUS ARRHYTHMIA POSSIBLE LEFT ATRIAL ENLARGEMENT RIGHT BUNDLE BRANCH BLOCK LEFT ANTERIOR FASCICULAR BLOCK BIFASCICULAR BLOCK POSSIBLE INFERIOR INFARCT , AGE UNDETERMINED ABNORMAL ECG WHEN COMPARED WITH ECG OF 18-AUG-2019 18:17, NO SIGNIFICANT CHANGE WAS FOUND Confirmed by YUE SCRUGGS MD ([id number]) on 08/20/2019 4:16:20 PM Referred By: Confirmed By:YUE SCRUGGS MD
--- NOTE | 2019-08-20 16:39 | PN ---
Progress Note (short form) - Note Progress Note: s: feels better today, sob near baseline, no chest pain, palps, dizziness. former smoker Current Medications Acetaminophen (Tylenol -) 650 mg PO Q4H PRN PRN Reason: PAIN OR FEVER Last Admin: 08/19/19 20:10 Dose: 650 mg Albuterol Sulfate (Ventolin 0.083% Nebulizer Soln -) 1 amp NEB RTID [facility] Last Admin: 08/20/19 15:40 Dose: 1 amp Cyanocobalamin (Vitamin B12 -) 1,000 mcg PO DAILY [facility] Last Admin: 08/20/19 09:23 Dose: 1,000 mcg Ferrous Sulfate (Feosol -) 325 mg PO DAILY [facility] Last Admin: 08/20/19 09:23 Dose: 325 mg Furosemide (Lasix -) 40 mg PO DAILY [facility] Last Admin: 08/20/19 11:16 Dose: 40 mg Insulin Aspart (Novolog Vial Sliding Scale -) 1 vial SQ [facility]; Protocol Last Admin: 08/20/19 11:21 Dose: Not Given Metoprolol Succinate (Toprol Xl -) 25 mg PO [facility] Last Admin: 08/19/19 22:18 Dose: 25 mg Nystatin (Nystop Powder -) 1 applic TP DAILY [facility] Last Admin: 08/20/19 11:16 Dose: 1 applic Pantoprazole Sodium (Protonix -) 40 mg PO DAILY [facility] Last Admin: 08/20/19 09:23 Dose: 40 mg Potassium Chloride (K-Dur -) 20 meq PO DAILY [facility] Last Admin: 08/20/19 09:23 Dose: 20 meq Pregabalin (Lyrica -) 100 mg PO [facility] Last Admin: 08/19/19 22:18 Dose: 100 mg Tiotropium [place] (Spiriva Respimat) 2 puff IH DAILY [facility] Last Admin: 08/20/19 09:24 Dose: 2 puff Vital Signs Period Temp Pulse Resp BP Sys/Rider Pulse Ox Last 24 Hr 97.9 F-98.5 F 70-88 18-20 95-125/50-83 93-95 Constitutional: Yes: No Distress Eyes: Yes: Conjunctiva Clear, EOM Intact Respiratory: Yes: Other (decreased breath sounds b/l c/w COPD. No active wheezing. No rales) Gastrointestinal: Yes: Soft JVD: No Carotid Bruit: No Heart Sounds: Yes: S1, S2 (RRR, 2/6 JOSE RSB) Edema: No Peripheral Pulses WNL: Yes Neurological: Yes: Alert, Oriented no jaundice, diaphoresis not agitated Echo: Report Reviewed Prior Cardiac Procedures: Cardiac Catheterization Ejection Fraction %: LVEF > or = 40 % Imaging - Results Chest X-ray: Image Reviewed (Increased PVC, cardiomegaly, prob small b/l effusions) Cat Scan: Report Reviewed Assessment/Plan IMP: Probable acute on chronic exacerbation diastolic CHF Known chronic moderate pericardial effusion, no tamponade (-SAADIA/ESR/TSH, recent chest CT no mass) CAD s/p [place] and prior cath (remote)- anatomy not amenable to revasc per her report Chronic COPD AAA of 4.5cm followed by Vascular DM Cirrhosis Chronic thrombocytopenia REC: 1. BNP is sig elevated June (previously 500 now close to 3K) w/ CXR showing congestion. - received IV lasix with improvement, now appears euvolemic - cont PO lasix - nuclear pharmacologic stress test - with dobutamine, history of COPD 2. History of pericardial effusion. clinically does not appear to be in tamponade. Repeat echo shows large effusion >2 cm, imaging inconclusive for cardiac tamponade - echo images reviewed, discussed with interventional at [facility] and with patient. She declines transfer for further evaluation of pericardial effusion and possible diagnostic tap as she is high risk given cirrhosis, thrombocytopenia. She would not want any procedures unless emergent. 3. Continue Toprol for HTN/AAA which has been recently imaged here and is under Vascular surveillance (Sandra). 4. Not on ASA for CAD due to h/o GI, including recent admission for anemia and GIB. 5. Manage COPD per pulm
[2019-08-20] MEDS ORDERED: INSULIN (NOVOLOG) ASPART 100 UNITS/ML 10ML VIAL ONE (16:48)
[2019-08-20] MEDS: ACETAMINOPHEN 325 MG TABLET (FP) PO PRN (16:49)
[2019-08-20] MEDS: PREGABALIN 100 MG CAPSULE PO SCH (22:11)
[2019-08-21] MEDS: ACETAMINOPHEN 325 MG TABLET (FP) PO PRN ×2 (00:40→21:34)
[2019-08-21] MEDS: INSULIN SLIDING SCALE (NOVOLOG) 1 VIAL SQ SCH ×4 (06:00→22:32)
--- NOTE | 2019-08-21 06:51 | PN ---
Progress Note (short form) - Note Progress Note: Reconsidered stress test: She has known CAD. Has platelets of < 50K and is not a candidate for cath and will not be able to take dual antiplatelet therapy if stented (very high risk of bleeding). Currently she is not on ASA due to her platelets and prior GIB. Her / AAA/COPD and pericardial effusion also increase the risk associated with stress test. Not sure we would gain much from the test and management would not change. Thus, will hold off and continue to optimize medical regimen.
[2019-08-21] MEDS: ALBUTEROL SO4 0.083% IH SOL 2.5 MG/3 ML VIAL.NEB. NEB SCH ×3 (07:25→19:58)
[2019-08-21 08:08] LABS: HEMATOCRIT 35.9 % (32.4-45.2); HEMOGLOBIN 11.4 GM/dL (10.7-15.3); MCH 32.1 pg (25.7-33.7); MCHC 31.7 g/dl (32.0-36.0); MEAN CELL VOLUME 101.3 fl (80-96); MEAN PLT VOLUME 7.4 fl (7.5-11.1); PLATELET COUNT 44 K/MM3 (134-434); RBC 3.54 M/mm3 (3.60-5.2); RDW 16.7 % (11.6-15.6)
[2019-08-21 08:34] LABS: ALBUMIN 3.2 g/dl (3.4-5.0); BLOOD UREA NITROGEN 10.4 mg/dL (7-18); CALCIUM 7.9 mg/dL (8.5-10.1); CREATININE 0.8 mg/dL (0.55-1.3); TOT PROT 6.1 g/dl (6.4-8.2)
[2019-08-21 08:42] LABS: WHITE BLOOD COUNT 1.9 K/mm3 (4.0-10.0)
[2019-08-21] MEDS: POTASSIUM CHLORIDE TABS 20 MEQ TABLET.ER (FP) PO SCH (09:19)
[2019-08-21] MEDS: PANTOPRAZOLE 40 MG TABLET (FP) PO SCH (09:19)
[2019-08-21] MEDS: FUROSEMIDE 40 MG TABLET (FP) PO SCH (09:19)
[2019-08-21] MEDS: CYANOCOBALAMIN 1,000 MCG TABLET (FP) PO SCH (09:19)
[2019-08-21] MEDS: FERROUS SO4 325 MG TABLET (FP) PO SCH (09:19)
[2019-08-21] MEDS: TIOTROPIUM BROMIDE 2.5 MCG (SPIRIVA) RESPIMAT INHALER IH SCH (09:20)
[2019-08-21] MEDS: NYSTATIN POWDER 100,000 UNITS/GM - 15 GM TOPICAL POWDER TP SCH (09:20)
[2019-08-21] MEDS ORDERED: POTASSIUM CHLORIDE TABS 20 MEQ TABLET.ER (FP) PO ONE (10:05)
--- NOTE | 2019-08-21 10:07 | PN ---
Progress Note, Physician - Current Medication List Current Medications: Active Medications Acetaminophen (Tylenol -) 650 mg PO Q4H PRN PRN Reason: PAIN OR FEVER Last Admin: 08/21/19 00:40 Dose: 650 mg Albuterol Sulfate (Ventolin 0.083% Nebulizer Soln -) 1 amp NEB RTID [facility] Last Admin: 08/21/19 07:25 Dose: 1 amp Cyanocobalamin (Vitamin B12 -) 1,000 mcg PO DAILY [facility] Last Admin: 08/21/19 09:19 Dose: 1,000 mcg Ferrous Sulfate (Feosol -) 325 mg PO DAILY [facility] Last Admin: 08/21/19 09:19 Dose: 325 mg Furosemide (Lasix -) 40 mg PO DAILY [facility] Last Admin: 08/21/19 09:19 Dose: 40 mg Insulin Aspart (Novolog Vial Sliding Scale -) 1 vial SQ [facility]; Protocol Last Admin: 08/21/19 06:00 Dose: Not Given Metoprolol Succinate (Toprol Xl -) 25 mg PO [facility] Last Admin: 08/19/19 22:18 Dose: 25 mg Nystatin (Nystop Powder -) 1 applic TP DAILY [facility] Last Admin: 08/21/19 09:20 Dose: 1 applic Pantoprazole Sodium (Protonix -) 40 mg PO DAILY [facility] Last Admin: 08/21/19 09:19 Dose: 40 mg Potassium Chloride (K-Dur -) 40 meq PO DAILY [facility] Potassium Chloride (K-Dur -) 40 meq PO ONCE ONE Stop: 08/21/19 10:06 Pregabalin (Lyrica -) 100 mg PO [facility] Last Admin: 08/20/19 22:11 Dose: 100 mg Tiotropium [place] (Spiriva Respimat) 2 puff IH DAILY [facility] Last Admin: 08/21/19 09:20 Dose: 2 puff - Objective Vital Signs: Vital Signs Temperature 97.7 F 08/21/19 06:58 Pulse Rate 78 08/21/19 06:58 Respiratory Rate 20 08/21/19 06:58 Blood Pressure 106/57 L 08/21/19 06:58 O2 Sat by Pulse Oximetry (%) 90 L 08/20/19 21:00 Cardiovascular: Yes: S1, S2 Respiratory: Yes: Regular, CTA Bilaterally Gastrointestinal: Yes: Normal Bowel Sounds, Soft Labs: CBC, BMP 08/21/19 07:15 08/21/19 07:15 INR, PTT INR 1.25 (0.83-1.09) H 08/18/19 18:41 Assessment/Plan - Problems (1) CHF exacerbation Assessment/Plan: -Cardiology on board -Bronchodilators -O2 via [place] -Furosemide -BNP 2841.9 -1L fluid restriction -daily weights -Echocardiogram Code(s): I50.9 - HEART FAILURE, UNSPECIFIED Qualifiers: Heart failure type: diastolic Qualified Code(s): I50.33 - Acute on chronic diastolic (congestive) heart failure (2) COPD (chronic obstructive pulmonary disease) Assessment/Plan: -Pulm on board -CXR shows congestive changes with some bibasilar atelectasis/infiltrates with fluid, left more affected then right -Bronchodilators -O2 via [place] -Spiriva -keep SpO2 >90% Code(s): J44.9 - CHRONIC OBSTRUCTIVE PULMONARY DISEASE, UNSPECIFIED Qualifiers: COPD type: unspecified COPD Qualified Code(s): J44.9 - Chronic obstructive pulmonary disease, unspecified (3) SOB (shortness of breath) Assessment/Plan: -Pulm on board -CXR shows congestive changes with some bibasilar atelectasis/infiltrates with fluid, left more affected then right -Bronchodilators -O2 via [place] -Spiriva -keep SpO2 >90% Code(s): R06.02 - SHORTNESS OF BREATH (4) CAD (coronary artery disease) Assessment/Plan: -no Aspirin because hx of GI bleed Code(s): I25.10 - ATHSCL HEART DISEASE OF [place] CORONARY ARTERY W/O ANG PCTRS Qualifiers: Coronary Disease-Associated Artery/Lesion type: [place] artery [place] vs. transplanted heart: [place] heart Associated angina: without angina Qualified Code(s): I25.10 - Atherosclerotic heart disease of [place] coronary artery without angina pectoris (5) Diabetes Assessment/Plan: -BGM ACHS -ISS -Diabetic diet Code(s): E11.9 - TYPE 2 DIABETES MELLITUS WITHOUT COMPLICATIONS Qualifiers: Diabetes mellitus type: type 2 (6) HTN (hypertension) Assessment/Plan: -Metoprolol Code(s): I10 - ESSENTIAL (PRIMARY) HYPERTENSION Qualifiers: Hypertension type: essential hypertension Qualified Code(s): I10 - Essential (primary) hypertension (7) Aneurysm of infrarenal abdominal aorta Assessment/Plan: -vascular consult Code(s): I71.4 - ABDOMINAL AORTIC ANEURYSM, WITHOUT RUPTURE
--- NOTE | 2019-08-21 10:54 | PN ---
Progress Note (short form) - Note Progress Note: PULMONARY Feels weaker today. +cough with clear sputum. No fevers or chills. Vital Signs Period Temp Pulse Resp BP Sys/Rider Pulse Ox Last 24 Hr 97.7 F-98.5 F 78-91 20-20 100-126/53-66 90 Gen: NAD at rest Heart: RRR Lung: decreased breath sounds at the bases, no wheezes Abd: soft, nontender Ext: no edema CBC, BMP 08/21/19 07:15 08/21/19 07:15 Active Medications Acetaminophen (Tylenol -) 650 mg PO Q4H PRN PRN Reason: PAIN OR FEVER Last Admin: 08/21/19 00:40 Dose: 650 mg Albuterol Sulfate (Ventolin 0.083% Nebulizer Soln -) 1 amp NEB RTID [facility] Last Admin: 08/21/19 07:25 Dose: 1 amp Cyanocobalamin (Vitamin B12 -) 1,000 mcg PO DAILY [facility] Last Admin: 08/21/19 09:19 Dose: 1,000 mcg Ferrous Sulfate (Feosol -) 325 mg PO DAILY [facility] Last Admin: 08/21/19 09:19 Dose: 325 mg Furosemide (Lasix -) 40 mg PO DAILY [facility] Last Admin: 08/21/19 09:19 Dose: 40 mg Insulin Aspart (Novolog Vial Sliding Scale -) 1 vial SQ ACHS [facility]; Protocol Last Admin: 08/21/19 06:00 Dose: Not Given Metoprolol Succinate (Toprol Xl -) 25 mg PO [facility] Last Admin: 08/19/19 22:18 Dose: 25 mg Nystatin (Nystop Powder -) 1 applic TP DAILY [facility] Last Admin: 08/21/19 09:20 Dose: 1 applic Pantoprazole Sodium (Protonix -) 40 mg PO DAILY [facility] Last Admin: 08/21/19 09:19 Dose: 40 mg Potassium Chloride (K-Dur -) 40 meq PO DAILY [facility] Pregabalin (Lyrica -) 100 mg PO [facility] Last Admin: 08/20/19 22:11 Dose: 100 mg Tiotropium [place] (Spiriva Respimat) 2 puff IH DAILY [facility] Last Admin: 08/21/19 09:20 Dose: 2 puff A/P Acute Bronchitis LV Diastolic Dysfunction COPD Chronic Hypoxic Respiratory Failure Pericardial Effusion Thrombocytopenia Leukopenia DM - continue lasix - monitor urine output, creatinine - replete lytes - O2 to keep SpO2 >90% - inhaled bronchodilators - DVT prophylaxis
[2019-08-21] MEDS ORDERED: INSULIN (NOVOLOG) ASPART 100 UNITS/ML 10ML VIAL ONE (11:26)
--- NOTE | 2019-08-21 13:35 | CONSULT ---
Consult - text type - Consultation Consultation Note: Renal consult for hypokalemia This is a 78 year old woman with history of diastolic HF, pericardial effusion, COPD, OA who presented with 1 week history of SOB/MULLIGAN and admitted for acute on chronic HF and with persistent hypokalemia in setting of diuretics. She reports feeling better now compared to her admission date but does have some fatigue. SOB is improved. Denies any fever, chills. No N/V/D. No leg swelling. PMhx: as above Allergies: NKDA Family Hx: [place] Social Hx: No T/A/D ROS: as per HPI, all other pertinent ros negative Home Medications Medication Instructions Recorded Ezetimibe/Simvastatin [Vytorin 1 each PO HS 05/03/12 10-20 mg Tablet] Metoprolol Succinate [Toprol XL -] 25 mg PO HS 05/03/12 Pregabalin [Lyrica] 100 mg PO HS 05/03/12 Cyanocobalamin [Vitamin B12 -] 1,000 mcg PO DAILY 06/18/14 Pantoprazole Sodium [Protonix -] 40 mg PO BID #60 tab 08/14/17 Glyburide 2.5 mg PO BID 06/27/19 Metformin HCl [Glucophage] 500 mg PO DAILY 06/27/19 Tiotropium [place] [Spiriva 1 inh IH DAILY 06/29/19 Respimat] Ferrous Sulfate [Iron] 325 mg PO DAILY 08/18/19 Intake & Output 08/18/19 08/19/19 08/20/19 08/21/19 23:59 23:59 23:59 23:59 Intake Total 120 0 0 Balance 120 0 0 Weight 86.183 kg 86.409 kg 83.869 kg 83.518 kg NAD awake and alert neck supple RRR CTA soft NT/ND no LE edema CBC, BMP 08/21/19 07:15 08/21/19 07:15 Current Medications Acetaminophen (Tylenol -) 650 mg PO Q4H PRN PRN Reason: PAIN OR FEVER Last Admin: 08/21/19 00:40 Dose: 650 mg Albuterol Sulfate (Ventolin 0.083% Nebulizer Soln -) 1 amp NEB RTID [facility] Last Admin: 08/21/19 07:25 Dose: 1 amp Cyanocobalamin (Vitamin B12 -) 1,000 mcg PO DAILY [facility] Last Admin: 08/21/19 09:19 Dose: 1,000 mcg Ferrous Sulfate (Feosol -) 325 mg PO DAILY [facility] Last Admin: 08/21/19 09:19 Dose: 325 mg Furosemide (Lasix -) 40 mg PO DAILY [facility] Last Admin: 08/21/19 09:19 Dose: 40 mg Insulin Aspart (Novolog Vial Sliding Scale -) 1 vial SQ ACHS [facility]; Protocol Last Admin: 08/21/19 11:27 Dose: 2 units Metoprolol Succinate (Toprol Xl -) 25 mg PO HS [facility] Last Admin: 08/19/19 22:18 Dose: 25 mg Nystatin (Nystop Powder -) 1 applic TP DAILY [facility] Last Admin: 08/21/19 09:20 Dose: 1 applic Pantoprazole Sodium (Protonix -) 40 mg PO DAILY [facility] Last Admin: 08/21/19 09:19 Dose: 40 mg Potassium Chloride (K-Dur -) 40 meq PO DAILY [facility] Pregabalin (Lyrica -) 100 mg PO HS [facility] Last Admin: 08/20/19 22:11 Dose: 100 mg Tiotropium [place] (Spiriva Respimat) 2 puff IH DAILY [facility] Last Admin: 08/21/19 09:20 Dose: 2 puff 78 year old woman with history of diastolic HF, pericardial effusion, COPD, OA who presented with 1 week history of SOB/MULLIGAN and admitted for acute on chronic HF and with persistent hypokalemia in setting of diuretics. 1. Hypokalemia in setting of Loop diuretics 2. Diastolic HF 3. Pericardial effusion 4. Leukopenia/Thrombocytopenia Would continue Potassium chloride 40meq daily. Encourged oral intake of higher potassium foods. Check Mg levels to ensure there is not concurrent hypomagnesemia as well (PPI is a risk factor of hypomagnesemia). Continue lasix PO daily. Lung field appear to be clear. Trend WBC and plt counts Thank you will follow Ian Morales DO
--- NOTE | 2019-08-21 14:03 | PN ---
Progress Note, Physician Chief Complaint: feeling better No CP or palps. - Current Medication List Current Medications: Active Medications Acetaminophen (Tylenol -) 650 mg PO Q4H PRN PRN Reason: PAIN OR FEVER Last Admin: 08/21/19 00:40 Dose: 650 mg Albuterol Sulfate (Ventolin 0.083% Nebulizer Soln -) 1 amp NEB RTID [facility] Last Admin: 08/21/19 07:25 Dose: 1 amp Cyanocobalamin (Vitamin B12 -) 1,000 mcg PO DAILY [facility] Last Admin: 08/21/19 09:19 Dose: 1,000 mcg Ferrous Sulfate (Feosol -) 325 mg PO DAILY [facility] Last Admin: 08/21/19 09:19 Dose: 325 mg Furosemide (Lasix -) 40 mg PO DAILY [facility] Last Admin: 08/21/19 09:19 Dose: 40 mg Insulin Aspart (Novolog Vial Sliding Scale -) 1 vial SQ [facility]; Protocol Last Admin: 08/21/19 11:27 Dose: 2 units Metoprolol Succinate (Toprol Xl -) 25 mg PO [facility] Last Admin: 08/19/19 22:18 Dose: 25 mg Nystatin (Nystop Powder -) 1 applic TP DAILY [facility] Last Admin: 08/21/19 09:20 Dose: 1 applic Pantoprazole Sodium (Protonix -) 40 mg PO DAILY [facility] Last Admin: 08/21/19 09:19 Dose: 40 mg Potassium Chloride (K-Dur -) 40 meq PO DAILY [facility] Pregabalin (Lyrica -) 100 mg PO [facility] Last Admin: 08/20/19 22:11 Dose: 100 mg Tiotropium [place] (Spiriva Respimat) 2 puff IH DAILY [facility] Last Admin: 08/21/19 09:20 Dose: 2 puff - Objective Vital Signs: Vital Signs Temperature 98.2 F 08/21/19 11:15 Pulse Rate 82 08/21/19 11:15 Respiratory Rate 18 08/21/19 11:15 Blood Pressure 119/61 08/21/19 11:15 O2 Sat by Pulse Oximetry (%) 90 L 08/21/19 11:16 Constitutional: Yes: No Distress Cardiovascular: Yes: Regular Rate and Rhythm Respiratory: Yes: Other (decreased breath sounds, no active wheezing.) Gastrointestinal: Yes: Soft Edema: No Neurological: Yes: Alert, Oriented ...Motor Strength: WNL Labs: CBC, BMP 08/21/19 07:15 08/21/19 07:15 INR, PTT INR 1.25 (0.83-1.09) H 08/18/19 18:41 Assessment/Plan IMP: Probable acute on chronic exacerbation diastolic CHF Known chronic moderate pericardial effusion, no tamponade (-SAADIA/ESR/TSH, recent chest CT no mass) CAD s/p [place] and prior cath (remote)- anatomy not amenable to revasc per her report Chronic COPD 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 BNP is sig elevated since June (previously 500 now close to 3K) w/ CXR showing congestion. - received IV lasix with improvement, now appears euvolemic - cont PO lasix - nuclear pharmacologic stress test deferred as she is not a candidate for intervention due to inability to give DAPT (prior GIB and thrombocytopenia); CAD is already known thus stress not helpful for dx. Added info from stress test would not change our management. 2. History of pericardial effusion. clinically does not appear to be in tamponade. Repeat echo shows large effusion >2 cm, imaging inconclusive for cardiac tamponade - echo images reviewed, discussed with interventional at [facility] and with patient. She declines transfer for further evaluation of pericardial effusion and possible diagnostic tap as she is high risk given cirrhosis, thrombocytopenia. She would not want any procedures unless emergent. 3. Continue Toprol for HTN/AAA which has been recently imaged here and is under Vascular surveillance (Sandra). 4. Not on ASA for CAD due to h/o GI, including recent admission for anemia and GIB. 5. Manage COPD per pulm 6. Repleting K+; repeat BMP later this afternoon
--- NOTE | 2019-08-21 19:25 | CONSULT ---
Consult - text type - Consultation Consultation Note: Hematology and oncology consult Subjective: The patient is a 78-year-old female with a past medical history of heart failure with preserved ejection fraction, chronic pericardial effusion, COPD ( on 2 L home O2), nonalcoholic hepatic cirrhosis and osteoarthritis who comes into the emergency department complaining of a one-week history of progressively worsening shortness of breath and dyspnea on exertion with associated generalized weakness. The patient was admitted for treatment of acute COPD exacerbation. During the course of her admission, her white blood cell count has trended down and was noted to be 1.9 today. In addition to this, she was also noted to be thrombocytopenic to 44 today. Hematology was consulted for assistance in the evaluation treatment of these lab abnormalities. On evaluation, the patient had no complaints and states that these lab abnormalities has been a chronic issue which has been worked up by Dr. Cunha and Dr. Ramsey in the past. Per the patient, hematology had wanted to conduct a bone marrow aspiration to further evaluate her cytopenias. She had refused this procedure in the past and still does not wish to have it done. Objective: Vital Signs Temperature 98.3 F 08/21/19 15:31 Pulse Rate 90 08/21/19 15:31 Respiratory Rate 20 08/21/19 15:31 Blood Pressure 121/75 08/21/19 15:31 O2 Sat by Pulse Oximetry (%) 90 L 08/21/19 11:16 Physical exam: Gen.: patient found lying in bed. Well appearing. Awake, alert. Lungs: clear to auscultation bilaterally down to the bases. Heart: regular rate and rhythm. S1, S2 heard. No murmurs gallops or rubs heard. Abdomen: soft, nontender, nondistended. Bowel sounds heard. Extremities: no peripheral edema noted. No bruising, swelling, erythema or warmth of extremities noted. neuro: patient A&O x3. Moving all four limbs spontaneously. CBC, BMP 08/21/19 07:15 08/21/19 07:15 Assessment and plan: The patient is a 78-year-old female with a past medical history of heart failure with preserved ejection fraction, chronic pericardial effusion, COPD ( on 2 L home O2), nonalcoholic hepatic cirrhosis and osteoarthritis who comes into the emergency department complaining of a one-week history of progressively worsening shortness of breath and dyspnea on exertion with associated generalized weakness. The patient is admitted for treatment of acute COPD exacerbation. #Thrombocytopenia and leukopenia possibly secondary to MDS versus other hematologic abnormality r/o occult loss -leukopenia and thrombocytopenia both chronic upon chart review -per patient, she has been worked up by hematology for these abnormalities in the past -cannot find record of hematologic testing in [place] -patient refusing bone marrow aspiration at this time -patient agrees to flow cytometry testing. -Will order flow cytometry in a.m. -consider serial stool guiac -consider G.I. evaluation -would suggest PT evaluation to avoid deconditioning
[2019-08-21 19:36] LABS: MAGNESIUM 1.6 mg/dL (1.8-2.4)
[2019-08-21 19:41] LABS: BASO % 0.9 % (0-2.0); EOS % 2.5 % (0-4.5); HEMATOCRIT 37.7 % (32.4-45.2); HEMOGLOBIN 11.8 GM/dL (10.7-15.3); LYMPH % 18.9 % (8-40); MCHC 31.2 g/dl (32.0-36.0); MEAN CELL VOLUME 102.4 fl (80-96); MEAN PLT VOLUME 7.6 fl (7.5-11.1); NEUT % 68.7 % (42.8-82.8); PLATELET COUNT 42 K/MM3 (134-434); RBC 3.68 M/mm3 (3.60-5.2); WHITE BLOOD COUNT 2.1 K/mm3 (4.0-10.0)
[2019-08-21 19:49] LABS: MAGNESIUM 1.7 mg/dL (1.8-2.4); POTASSIUM 3.6 mmol/L (3.5-5.1)
[2019-08-21 20:08] LABS: BLOOD UREA NITROGEN 9.2 mg/dL (7-18); CALCIUM 8.1 mg/dL (8.5-10.1); CREATININE 0.8 mg/dL (0.55-1.3); POTASSIUM 3.5 mmol/L (3.5-5.1)
--- NOTE | 2019-08-21 21:01 | PN ---
Teaching Attending Note Name of Resident: Jak Mendez ATTENDING PHYSICIAN STATEMENT I saw and evaluated the patient. I reviewed the resident's note and discussed the case with the resident. I agree with the resident's findings and plan as documented. SUBJECTIVE: Doing well. Only complain is leg weakness OBJECTIVE: Last Vital Signs Temp Pulse Resp BP Pulse Ox 98.1 F 83 20 126/62 93 L 08/21/19 16:20 08/21/19 20:41 08/21/19 20:41 08/21/19 20:41 08/21/19 20:47 General: NAD HEENT: MMM CVS: S1, S2 Lungs: CTAB Abdomen NTND Ext: No edema Neuro Moves all extremities Current Medications Acetaminophen (Tylenol -) 650 mg PO Q4H PRN PRN Reason: PAIN OR FEVER Last Admin: 08/21/19 00:40 Dose: 650 mg Albuterol Sulfate (Ventolin 0.083% Nebulizer Soln -) 1 amp NEB RTID [facility] Last Admin: 08/21/19 19:58 Dose: 1 amp Cyanocobalamin (Vitamin B12 -) 1,000 mcg PO DAILY [facility] Last Admin: 08/21/19 09:19 Dose: 1,000 mcg Ferrous Sulfate (Feosol -) 325 mg PO DAILY [facility] Last Admin: 08/21/19 09:19 Dose: 325 mg Furosemide (Lasix -) 40 mg PO DAILY [facility] Last Admin: 08/21/19 09:19 Dose: 40 mg Insulin Aspart (Novolog Vial Sliding Scale -) 1 vial SQ ACHS [facility]; Protocol Last Admin: 08/21/19 17:02 Dose: 2 units Metoprolol Succinate (Toprol Xl -) 25 mg PO HS [facility] Last Admin: 08/19/19 22:18 Dose: 25 mg Nystatin (Nystop Powder -) 1 applic TP DAILY [facility] Last Admin: 08/21/19 09:20 Dose: 1 applic Pantoprazole Sodium (Protonix -) 40 mg PO DAILY [facility] Last Admin: 08/21/19 09:19 Dose: 40 mg Potassium Chloride (K-Dur -) 40 meq PO DAILY [facility] Pregabalin (Lyrica -) 100 mg PO HS [facility] Last Admin: 08/20/19 22:11 Dose: 100 mg Tiotropium [place] (Spiriva Respimat) 2 puff IH DAILY [facility] Last Admin: 08/21/19 09:20 Dose: 2 puff 08/21/19 19:00 08/21/19 19:00 ASSESSMENT AND PLAN: 78-year-old lady with a past medical history of heart failure with preserved ejection fraction, chronic pericardial effusion, COPD (on 2 L home O2), nonalcoholic hepatic cirrhosis and osteoarthritis who comes into the emergency department complaining of a one-week history of progressively worsening shortness of breath and dyspnea on exertion with associated generalized weakness. The patient is admitted for treatment of acute COPD exacerbation. Recommend 1) Bicytopenia: Thrombocytopenia and Leukopenia Pt previously evaluated as an outpatient. She refuses a bone marrow biopsy at this time. Will order flow cytometry instead 2) Consider nutritional deficit as well. May order Iron profile, B12, Folate, Copper. 3) Serial stool guaiac 4) Thank you for this consultation
[2019-08-21] MEDS: metoPROLOL SUCCINATE 25 MG TAB.SR.24H (FP) PO SCH (21:33)
[2019-08-21] MEDS: PREGABALIN 100 MG CAPSULE PO SCH (21:35)
[2019-08-22] MEDS ORDERED: PT OWN MED DRAWER 7, Y5N ONE (06:03)
[2019-08-22] MEDS: INSULIN SLIDING SCALE (NOVOLOG) 1 VIAL SQ SCH ×4 (06:50→22:29)
[2019-08-22] MEDS: ALBUTEROL SO4 0.083% IH SOL 2.5 MG/3 ML VIAL.NEB. NEB SCH ×3 (07:50→20:22)
[2019-08-22 08:16] LABS: BASO % 1.2 % (0-2.0); EOS % 3.5 % (0-4.5); HEMATOCRIT 37.5 % (32.4-45.2); HEMOGLOBIN 11.9 GM/dL (10.7-15.3); MCH 32.2 pg (25.7-33.7); MCHC 31.8 g/dl (32.0-36.0); MEAN CELL VOLUME 101.2 fl (80-96); MEAN PLT VOLUME 7.6 fl (7.5-11.1); NEUT % 63.3 % (42.8-82.8); PLATELET COUNT 42 K/MM3 (134-434); RDW 17.1 % (11.6-15.6)
[2019-08-22 08:38] LABS: ALBUMIN 3.3 g/dl (3.4-5.0); BILIRUBIN,TOTAL 0.6 mg/dL (0.2-1); BLOOD UREA NITROGEN 8.1 mg/dL (7-18); CALCIUM 8.1 mg/dL (8.5-10.1); CREATININE 0.8 mg/dL (0.55-1.3); POTASSIUM 3.8 mmol/L (3.5-5.1); TOT PROT 6.2 g/dl (6.4-8.2)
[2019-08-22 08:56] LABS: WHITE BLOOD COUNT 1.9 K/mm3 (4.0-10.0)
--- NOTE | 2019-08-22 09:28 | PN ---
Progress Note, Physician Chief Complaint: AWAKE ALERT FEELS WEEK NO FEVERS +APPETITE - Current Medication List Current Medications: Active Medications Acetaminophen (Tylenol -) 650 mg PO Q4H PRN PRN Reason: PAIN OR FEVER Last Admin: 08/21/19 21:34 Dose: 650 mg Albuterol Sulfate (Ventolin 0.083% Nebulizer Soln -) 1 amp NEB RTID [facility] Last Admin: 08/21/19 19:58 Dose: 1 amp Cyanocobalamin (Vitamin B12 -) 1,000 mcg PO DAILY [facility] Last Admin: 08/21/19 09:19 Dose: 1,000 mcg Ferrous Sulfate (Feosol -) 325 mg PO DAILY [facility] Last Admin: 08/21/19 09:19 Dose: 325 mg Furosemide (Lasix -) 40 mg PO DAILY [facility] Last Admin: 08/21/19 09:19 Dose: 40 mg Insulin Aspart (Novolog Vial Sliding Scale -) 1 vial SQ [facility]; Protocol Last Admin: 08/22/19 06:50 Dose: Not Given Metoprolol Succinate (Toprol Xl -) 25 mg PO [facility] Last Admin: 08/21/19 21:33 Dose: 25 mg Nystatin (Nystop Powder -) 1 applic TP DAILY [facility] Last Admin: 08/21/19 09:20 Dose: 1 applic Pantoprazole Sodium (Protonix -) 40 mg PO DAILY [facility] Last Admin: 08/21/19 09:19 Dose: 40 mg Potassium Chloride (K-Dur -) 40 meq PO DAILY [facility] Pregabalin (Lyrica -) 100 mg PO [facility] Last Admin: 08/21/19 21:35 Dose: 100 mg Tiotropium [place] (Spiriva Respimat) 2 puff IH DAILY [facility] Last Admin: 08/21/19 09:20 Dose: 2 puff - Objective Vital Signs: Vital Signs Temperature 97.8 F 08/22/19 07:29 Pulse Rate 77 08/22/19 07:29 Respiratory Rate 20 08/22/19 07:29 Blood Pressure 132/69 08/22/19 07:29 O2 Sat by Pulse Oximetry (%) 91 L 08/21/19 22:23 Constitutional: Yes: Mild Distress Cardiovascular: Yes: Pulse Irregular Respiratory: Yes: On Nasal O2 Gastrointestinal: Yes: Soft Genitourinary: Yes: Incontinence Musculoskeletal: Yes: Muscle Weakness Edema: No Peripheral Pulses WNL: Yes Integumentary: Yes: Venous Stasis Changes Neurological: Yes: Pre-Existing Deficit ...Motor Strength: LLE, RLE Psychiatric: Yes: WNL Labs: CBC, BMP 08/22/19 07:00 08/22/19 07:00 INR, PTT INR 1.25 (0.83-1.09) H 08/18/19 18:41 Problem List - Problems (1) CHF exacerbation Code(s): I50.9 - HEART FAILURE, UNSPECIFIED Qualifiers: Heart failure type: diastolic Qualified Code(s): I50.33 - Acute on chronic diastolic (congestive) heart failure (2) COPD (chronic obstructive pulmonary disease) Code(s): J44.9 - CHRONIC OBSTRUCTIVE PULMONARY DISEASE, UNSPECIFIED Qualifiers: COPD type: unspecified COPD Qualified Code(s): J44.9 - Chronic obstructive pulmonary disease, unspecified (3) Thrombocytopenia Code(s): D69.6 - THROMBOCYTOPENIA, UNSPECIFIED (4) Acute on chronic respiratory failure with hypoxemia Code(s): J96.21 - ACUTE AND CHRONIC RESPIRATORY FAILURE WITH HYPOXIA (5) Aneurysm of infrarenal abdominal aorta Code(s): I71.4 - ABDOMINAL AORTIC ANEURYSM, WITHOUT RUPTURE (6) Anemia Code(s): D64.9 - ANEMIA, UNSPECIFIED Qualifiers: Anemia type: unspecified type Qualified Code(s): D64.9 - Anemia, unspecified (7) Chronic diastolic heart failure Code(s): I50.32 - CHRONIC DIASTOLIC (CONGESTIVE) HEART FAILURE Assessment/Plan IV DIUERETCS/O2 SUPPORT ANEMIA/THROMBOCYTOPENIA H/O MDS REPEAT CBC IN AM HEME/ONC FOLLOW UP OOB TO CHAIR-PT EVAL SNF PLACEMENT PULMONARY AND CARDIO FOLLOW UP APPRECIATED
[2019-08-22] MEDS: POTASSIUM CHLORIDE TABS 20 MEQ TABLET.ER (FP) PO SCH (10:16)
[2019-08-22] MEDS: NYSTATIN POWDER 100,000 UNITS/GM - 15 GM TOPICAL POWDER TP SCH (10:17)
[2019-08-22] MEDS: CYANOCOBALAMIN 1,000 MCG TABLET (FP) PO SCH (10:17)
[2019-08-22] MEDS: FERROUS SO4 325 MG TABLET (FP) PO SCH (10:17)
[2019-08-22] MEDS: PANTOPRAZOLE 40 MG TABLET (FP) PO SCH (10:17)
[2019-08-22] MEDS: TIOTROPIUM BROMIDE 2.5 MCG (SPIRIVA) RESPIMAT INHALER IH SCH (10:17)
[2019-08-22] MEDS: FUROSEMIDE 40 MG TABLET (FP) PO SCH (10:22)
[2019-08-22 11:26] LABS: ANISOCYTOSIS 1+; MACROCYTOSIS 1+; OVALOCYTE 1+; PLATELET ESTIMATE DECREASED
[2019-08-22] MEDS ORDERED: MAGNESIUM SULF 50% (8.12 MEQ/2 ML-1 GM VIAL) IVPB ONE (11:45)
--- NOTE | 2019-08-22 11:49 | PN ---
Progress Note (short form) - Note Progress Note: no chest pain, palps, dizziness, dyspnea Current Medications Acetaminophen (Tylenol -) 650 mg PO Q4H PRN PRN Reason: PAIN OR FEVER Last Admin: 08/21/19 21:34 Dose: 650 mg Albuterol Sulfate (Ventolin 0.083% Nebulizer Soln -) 1 amp NEB RTID [facility] Last Admin: 08/21/19 19:58 Dose: 1 amp Cyanocobalamin (Vitamin B12 -) 1,000 mcg PO DAILY [facility] Last Admin: 08/22/19 10:17 Dose: 1,000 mcg Ferrous Sulfate (Feosol -) 325 mg PO DAILY [facility] Last Admin: 08/22/19 10:17 Dose: 325 mg Furosemide (Lasix -) 40 mg PO DAILY [facility] Last Admin: 08/22/19 10:22 Dose: 40 mg Insulin Aspart (Novolog Vial Sliding Scale -) 1 vial SQ ACHS [facility]; Protocol Last Admin: 08/22/19 11:30 Dose: Not Given Magnesium Chloride (Slow-Mag -) 64 mg PO DAILY [facility] Metoprolol Succinate (Toprol Xl -) 25 mg PO HS [facility] Last Admin: 08/21/19 21:33 Dose: 25 mg Nystatin (Nystop Powder -) 1 applic TP DAILY [facility] Last Admin: 08/22/19 10:17 Dose: 1 applic Potassium Chloride (K-Dur -) 40 meq PO DAILY [facility] Last Admin: 08/22/19 10:16 Dose: 40 meq Pregabalin (Lyrica -) 100 mg PO [facility] Last Admin: 08/21/19 21:35 Dose: 100 mg Ranitidine HCl (Zantac -) 150 mg PO DAILY [facility] Tiotropium [place] (Spiriva Respimat) 2 puff IH DAILY [facility] Last Admin: 08/22/19 10:17 Dose: 2 puff Vital Signs Period Temp Pulse Resp BP Sys/Rider Pulse Ox Last 24 Hr 97.8 F-98.3 F 77-90 20-20 113-132/56-75 91-93 Constitutional: Yes: No Distress Cardiovascular: Yes: Regular Rate and Rhythm Respiratory: Yes: Other (decreased breath sounds, no active wheezing.) Gastrointestinal: Yes: Soft Edema: No Neurological: Yes: Alert, Oriented no jaundice, diaphoresis not agitated Assessment/Plan IMP: Probable acute on chronic exacerbation diastolic CHF Known chronic moderate pericardial effusion, no tamponade (-SAADIA/ESR/TSH, recent chest CT no mass) CAD s/p FL and prior cath (remote)- anatomy not amenable to revasc per her report Chronic COPD 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 BNP is sig elevated since June (previously 500 now close to 3K) w/ CXR showing congestion. - received IV lasix with improvement, now appears euvolemic - cont PO lasix - nuclear pharmacologic stress test deferred as she is not a candidate for intervention due to inability to give DAPT (prior GIB and thrombocytopenia); CAD is already known thus stress not helpful for dx. Added info from stress test would not change our management. 2. History of pericardial effusion. clinically does not appear to be in tamponade. Repeat echo shows large effusion >2 cm, imaging inconclusive for cardiac tamponade - echo images reviewed, discussed with interventional at [facility] and with patient. She declines transfer for further evaluation of pericardial effusion and possible diagnostic tap as she is high risk given cirrhosis, thrombocytopenia. She would not want any procedures unless emergent. 3. Continue Toprol for HTN/AAA which has been recently imaged here and is under Vascular surveillance ([facility]andra). 4. Not on ASA for CAD due to h/o GI, including recent admission for anemia and GIB. 5. Manage COPD per pulm 6. Replete lytes for K>4, Mg >2
--- NOTE | 2019-08-22 14:11 | PN ---
Progress Note (short form) - Note Progress Note: PULMONARY States breathing is better. +cough with clear sputum. No fevers or chills. Vital Signs Period Temp Pulse Resp BP Sys/Rider Pulse Ox Last 24 Hr 97.8 F-98.3 F 77-90 20-20 113-132/56-75 91-93 Gen: NAD at rest Heart: RRR Lung: decreased breath sounds at the bases, no wheezes Abd: soft, nontender Ext: no edema CBC, BMP 08/22/19 07:00 08/22/19 07:00 Active Medications Acetaminophen (Tylenol -) 650 mg PO Q4H PRN PRN Reason: PAIN OR FEVER Last Admin: 08/21/19 21:34 Dose: 650 mg Albuterol Sulfate (Ventolin 0.083% Nebulizer Soln -) 1 amp NEB RTID [facility] Last Admin: 08/22/19 07:50 Dose: 1 amp Cyanocobalamin (Vitamin B12 -) 1,000 mcg PO DAILY [facility] Last Admin: 08/22/19 10:17 Dose: 1,000 mcg Ferrous Sulfate (Feosol -) 325 mg PO DAILY [facility] Last Admin: 08/22/19 10:17 Dose: 325 mg Furosemide (Lasix -) 40 mg PO DAILY [facility] Last Admin: 08/22/19 10:22 Dose: 40 mg Insulin Aspart (Novolog Vial Sliding Scale -) 1 vial SQ ACHS [facility]; Protocol Last Admin: 08/22/19 11:30 Dose: Not Given Magnesium Chloride (Slow-Mag -) 64 mg PO DAILY [facility] Metoprolol Succinate (Toprol Xl -) 25 mg PO HS [facility] Last Admin: 08/21/19 21:33 Dose: 25 mg Nystatin (Nystop Powder -) 1 applic TP DAILY [facility] Last Admin: 08/22/19 10:17 Dose: 1 applic Potassium Chloride (K-Dur -) 40 meq PO DAILY [facility] Last Admin: 08/22/19 10:16 Dose: 40 meq Pregabalin (Lyrica -) 100 mg PO HS [facility] Last Admin: 08/21/19 21:35 Dose: 100 mg Ranitidine HCl (Zantac -) 150 mg PO DAILY [facility] Tiotropium [place] (Spiriva Respimat) 2 puff IH DAILY [facility] Last Admin: 08/22/19 10:17 Dose: 2 puff A/P Acute Bronchitis LV Diastolic Dysfunction COPD Chronic Hypoxic Respiratory Failure Pericardial Effusion Thrombocytopenia Leukopenia DM - continue lasix - monitor urine output, creatinine - replete lytes - O2 to keep SpO2 >90% - inhaled bronchodilators - DVT prophylaxis
--- NOTE | 2019-08-22 15:45 | PN ---
Progress Note (short form) - Note Progress Note: Renal follow up for hypokalemia Seen and examined at the bedside offers no acute complaints denies any sob, cp, abd pain, fever or chills Vital Signs Temperature 97.8 F 08/22/19 07:29 Pulse Rate 77 08/22/19 07:29 Respiratory Rate 20 08/22/19 07:29 Blood Pressure 132/69 08/22/19 07:29 O2 Sat by Pulse Oximetry (%) 91 L 08/21/19 22:23 Intake & Output 08/19/19 08/20/19 08/21/19 08/22/19 23:59 23:59 23:59 23:59 Intake Total 120 0 0 Output Total 300 Balance 120 0 -300 Weight 86.409 kg 83.869 kg 83.518 kg 82.611 kg NAD RRR CTA soft NT/Nd no LE edema CBC, BMP 08/22/19 07:00 08/22/19 07:00 Current Medications Acetaminophen (Tylenol -) 650 mg PO Q4H PRN PRN Reason: PAIN OR FEVER Last Admin: 08/21/19 21:34 Dose: 650 mg Albuterol Sulfate (Ventolin 0.083% Nebulizer Soln -) 1 amp NEB RTID [facility]S [facility] Last Admin: 08/22/19 14:20 Dose: 1 amp Cyanocobalamin (Vitamin B12 -) 1,000 mcg PO DAILY [facility] Last Admin: 08/22/19 10:17 Dose: 1,000 mcg Ferrous Sulfate (Feosol -) 325 mg PO DAILY [facility] Last Admin: 08/22/19 10:17 Dose: 325 mg Furosemide (Lasix -) 40 mg PO DAILY [facility] Last Admin: 08/22/19 10:22 Dose: 40 mg Insulin Aspart (Novolog Vial Sliding Scale -) 1 vial SQ ACHS [facility]; Protocol Last Admin: 08/22/19 11:30 Dose: Not Given Magnesium Chloride (Slow-Mag -) 64 mg PO DAILY [facility] Metoprolol Succinate (Toprol Xl -) 25 mg PO HS [facility] Last Admin: 08/21/19 21:33 Dose: 25 mg Nystatin (Nystop Powder -) 1 applic TP DAILY [facility] Last Admin: 08/22/19 10:17 Dose: 1 applic Potassium Chloride (K-Dur -) 40 meq PO DAILY [facility] Last Admin: 08/22/19 10:16 Dose: 40 meq Pregabalin (Lyrica -) 100 mg PO HS [facility] Last Admin: 08/21/19 21:35 Dose: 100 mg Ranitidine HCl (Zantac -) 150 mg PO DAILY [facility] Tiotropium [place] (Spiriva Respimat) 2 puff IH DAILY [facility] Last Admin: 08/22/19 10:17 Dose: 2 puff 78 year old woman with history of diastolic HF, pericardial effusion, COPD, OA who presented with 1 week history of SOB/MULLIG[place] and admitted for acute on chronic HF and with persistent hypokalemia in setting of diuretics. 1. Hypokalemia in setting of Loop diuretics and hypomagnesemia 2. Diastolic HF 3. Pericardial effusion 4. Leukopenia/Thrombocytopenia Continue KCl daily. Will give Mg sulfate 2g IV today and then should maintain on slo-mg 64mg daily Change PPI to H2 [place] as PPI can cause hypomagnesemia Trend electrolytes daily while in the hospital Ian Morales DO
[2019-08-22] MEDS: metoPROLOL SUCCINATE 25 MG TAB.SR.24H (FP) PO SCH (21:46)
[2019-08-22] MEDS: ACETAMINOPHEN 325 MG TABLET (FP) PO PRN (21:46)
[2019-08-22] MEDS: PREGABALIN 100 MG CAPSULE PO SCH (21:46)
[2019-08-23] MEDS: INSULIN SLIDING SCALE (NOVOLOG) 1 VIAL SQ SCH ×2 (06:49→12:25)
[2019-08-23] MEDS: ALBUTEROL SO4 0.083% IH SOL 2.5 MG/3 ML VIAL.NEB. NEB SCH (07:20)
[2019-08-23] MEDS ORDERED: RANITIDINE HCL 150 MG TABLET (FP) PO SCH (10:00)
[2019-08-23] MEDS ORDERED: MAGNESIUM CL 64 MG TABLET.SA PO SCH (10:00)
[2019-08-23 10:03] VITALS: BP 100/56; PULSE 88; TEMP 97.9
--- NOTE | 2019-08-23 10:03 | DS ---
Physical Examination Vital Signs: Vital Signs Temperature 98 F 08/23/19 06:00 Pulse Rate 80 08/23/19 06:00 Respiratory Rate 20 08/23/19 06:00 Blood Pressure 110/62 08/23/19 06:00 O2 Sat by Pulse Oximetry (%) 94 L 08/22/19 22:06 Findings/Remarks: Laboratory Tests 08/18/19 08/18/19 08/18/19 16:35 18:41 18:41 WBC RBC Hgb Hct MCV MCH MCHC RDW Plt Count MPV Absolute Neuts (auto) Neutrophils % Neutrophils % (Manual) Band Neutrophils % Lymphocytes % Lymphocytes % (Manual) Monocytes % Monocytes % (Manual) Eosinophils % Eosinophils % (Manual) Basophils % Basophils % (Manual) Myelocytes % (Man) Promyelocytes % (Man) Blast Cells % (Manual) Nucleated RBC % Metamyelocytes Hypochromia Platelet Estimate Polychromasia Poikilocytosis Anisocytosis Microcytosis Macrocytosis Ovalocytes PT with INR 14.80 H INR 1.25 H PTT (Actin FS) 46.5 H Anticoagulation Therapy Puncture Site ABG pH ABG pCO2 at Pt Temp ABG pO2 at Pt Temp ABG HCO3 ABG O2 Sat (Measured) ABG O2 Content ABG Base Excess Nam Test O2 Delivery Device Oxygen Flow Rate Vent Mode Vent Rate Mechanical Rate Pressure Support Vent Sodium Potassium Chloride Carbon Dioxide Anion Gap BUN Creatinine Est GFR (CKD-EPI)AfAm Est GFR (CKD-EPI)NonAf POC Glucometer Random Glucose Calcium Phosphorus Magnesium Total Bilirubin AST ALT Alkaline Phosphatase Creatine Kinase 29 Troponin I 0.08 H B-Natriuretic Peptide Cancelled Total Protein Albumin 08/18/19 08/18/19 08/18/19 18:41 18:41 18:41 WBC 3.4 L RBC 3.89 Hgb 12.5 Hct 39.7 MCV 101.9 H MCH 32.0 MCHC 31.4 L RDW 17.1 H Plt Count 48 L MPV 6.5 L D Absolute Neuts (auto) 2.7 Neutrophils % 79.6 D Neutrophils % (Manual) Band Neutrophils % Lymphocytes % 10.7 D Lymphocytes % (Manual) Monocytes % 8.0 Monocytes % (Manual) Eosinophils % 0.8 Eosinophils % (Manual) Basophils % 0.9 Basophils % (Manual) Myelocytes % (Man) Promyelocytes % (Man) Blast Cells % (Manual) Nucleated RBC % 0 Metamyelocytes Hypochromia Platelet Estimate Polychromasia Poikilocytosis Anisocytosis Microcytosis Macrocytosis Ovalocytes PT with INR INR PTT (Actin FS) Anticoagulation Therapy Puncture Site ABG pH ABG pCO2 at Pt Temp ABG pO2 at Pt Temp ABG HCO3 ABG O2 Sat (Measured) ABG O2 Content ABG Base Excess Nam Test O2 Delivery Device Oxygen Flow Rate Vent Mode Vent Rate Mechanical Rate Pressure Support Vent Sodium 143 Potassium 3.8 Chloride 108 H Carbon Dioxide 27 Anion Gap 8 BUN 15.8 Creatinine 0.8 Est GFR (CKD-EPI)AfAm 81.27 Est GFR (CKD-EPI)NonAf 70.12 POC Glucometer Random Glucose 111 H Calcium 8.5 Phosphorus Magnesium 1.6 L Cancelled Total Bilirubin 0.8 AST 20 ALT 13 Alkaline Phosphatase 68 Creatine Kinase Troponin I B-Natriuretic Peptide 2841.9 H Total Protein 6.8 Albumin 3.5 08/18/19 08/18/19 08/19/19 18:41 22:51 05:48 WBC RBC Hgb Hct MCV MCH MCHC RDW Plt Count MPV Absolute Neuts (auto) Neutrophils % Neutrophils % (Manual) Band Neutrophils % Lymphocytes % Lymphocytes % (Manual) Monocytes % Monocytes % (Manual) Eosinophils % Eosinophils % (Manual) Basophils % Basophils % (Manual) Myelocytes % (Man) Promyelocytes % (Man) Blast Cells % (Manual) Nucleated RBC % Metamyelocytes Hypochromia Platelet Estimate Polychromasia Poikilocytosis Anisocytosis Microcytosis Macrocytosis Ovalocytes PT with INR Cancelled INR Cancelled PTT (Actin FS) Anticoagulation Therapy No Result Required. Puncture Site Right radial ABG pH 7.38 ABG pCO2 at Pt Temp 50.1 H ABG pO2 at Pt Temp 71.0 L ABG HCO3 29.0 H ABG O2 Sat (Measured) 93.3 L ABG O2 Content 14.7 ABG Base Excess 3.6 H Nam Test Positive O2 Delivery Device Bipap Oxygen Flow Rate [address] Vent Rate 14 Mechanical Rate No Result Required. Pressure Support Vent 12/4 Sodium Potassium Chloride Carbon Dioxide Anion Gap BUN Creatinine Est GFR (CKD-EPI)AfAm Est GFR (CKD-EPI)NonAf POC Glucometer 106 Random Glucose Calcium Phosphorus Magnesium Total Bilirubin AST ALT Alkaline Phosphatase Creatine Kinase Troponin I B-Natriuretic Peptide Total Protein Albumin 1008/19/19 08/19/19 06:10 06:10 06:10 WBC 2.2 L RBC 3.56 L Hgb 11.6 Hct 35.9 MCV 100.7 H MCH 32.4 MCHC 32.2 RDW 16.7 H Plt Count 47 L MPV 6.9 L Absolute Neuts (auto) Neutrophils % Neutrophils % (Manual) Band Neutrophils % Lymphocytes % Lymphocytes % (Manual) Monocytes % Monocytes % (Manual) Eosinophils % Eosinophils % (Manual) Basophils % Basophils % (Manual) Myelocytes % (Man) Promyelocytes % (Man) Blast Cells % (Manual) Nucleated RBC % Metamyelocytes Hypochromia Platelet Estimate Polychromasia Poikilocytosis Anisocytosis Microcytosis Macrocytosis Ovalocytes PT with INR INR PTT (Actin FS) Anticoagulation Therapy Puncture Site ABG pH ABG pCO2 at Pt Temp ABG pO2 at Pt Temp ABG HCO3 ABG O2 Sat (Measured) ABG O2 Content ABG Base Excess Nam Test O2 Delivery Device Oxygen Flow Rate Vent Mode Vent Rate Mechanical Rate Pressure Support Vent Sodium 145 Potassium 3.3 L Chloride 106 Carbon Dioxide 34 H Anion Gap 5 L BUN 12.5 Creatinine 0.7 Est GFR (CKD-EPI)AfAm 95.51 Est GFR (CKD-EPI)NonAf 82.41 POC Glucometer Random Glucose 106 Calcium 8.2 L Phosphorus 4.4 Magnesium 1.7 L Total Bilirubin 0.7 AST 22 ALT 12 L Alkaline Phosphatase 64 Creatine Kinase Troponin I 0.08 H B-Natriuretic Peptide Total Protein 6.1 L Albumin 3.4 08/19/19 08/19/19 08/19/19 12:11 17:01 22:22 WBC RBC Hgb Hct MCV MCH MCHC RDW Plt Count MPV Absolute Neuts (auto) Neutrophils % Neutrophils % (Manual) Band Neutrophils % Lymphocytes % Lymphocytes % (Manual) Monocytes % Monocytes % (Manual) Eosinophils % Eosinophils % (Manual) Basophils % Basophils % (Manual) Myelocytes % (Man) Promyelocytes % (Man) Blast Cells % (Manual) Nucleated RBC % Metamyelocytes Hypochromia Platelet Estimate Polychromasia Poikilocytosis Anisocytosis Microcytosis Macrocytosis Ovalocytes PT with INR INR PTT (Actin FS) Anticoagulation Therapy Puncture Site ABG pH ABG pCO2 at Pt Temp ABG pO2 at Pt Temp ABG HCO3 ABG O2 Sat (Measured) ABG O2 Content ABG Base Excess Nam Test O2 Delivery Device Oxygen Flow Rate Vent Mode Vent Rate Mechanical Rate Pressure Support Vent Sodium Potassium Chloride Carbon Dioxide Anion Gap BUN Creatinine Est GFR (CKD-EPI)AfAm Est GFR (CKD-EPI)NonAf POC Glucometer 119 93 91 Random Glucose Calcium Phosphorus Magnesium Total Bilirubin AST ALT Alkaline Phosphatase Creatine Kinase Troponin I B-Natriuretic Peptide Total Protein Albumin 08/20/19 08/20/19 08/20/19 06:16 11:20 16:42 WBC RBC Hgb Hct MCV MCH MCHC RDW Plt Count MPV Absolute Neuts (auto) Neutrophils % Neutrophils % (Manual) Band Neutrophils % Lymphocytes % Lymphocytes % (Manual) Monocytes % Monocytes % (Manual) Eosinophils % Eosinophils % (Manual) Basophils % Basophils % (Manual) Myelocytes % (Man) Promyelocytes % (Man) Blast Cells % (Manual) Nucleated RBC % Metamyelocytes Hypochromia Platelet Estimate Polychromasia Poikilocytosis Anisocytosis Microcytosis Macrocytosis Ovalocytes PT with INR INR PTT (Actin FS) Anticoagulation Therapy Puncture Site ABG pH ABG pCO2 at Pt Temp ABG pO2 at Pt Temp ABG HCO3 ABG O2 Sat (Measured) ABG O2 Content ABG Base Excess Nam Test O2 Delivery Device Oxygen Flow Rate Vent Mode Vent Rate Mechanical Rate Pressure Support Vent Sodium Potassium Chloride Carbon Dioxide Anion Gap BUN Creatinine Est GFR (CKD-EPI)AfAm Est GFR (CKD-EPI)NonAf POC Glucometer 137 125 171 Random Glucose Calcium Phosphorus Magnesium Total Bilirubin AST ALT Alkaline Phosphatase Creatine Kinase Troponin I B-Natriuretic Peptide Total Protein Albumin 08/20/19 08/21/19 08/21/19 22:06 05:38 07:15 WBC 1.9 L* RBC 3.54 L Hgb 11.4 Hct 35.9 MCV 101.3 H MCH 32.1 MCHC 31.7 L RDW 16.7 H Plt Count 44 L MPV 7.4 L Absolute Neuts (auto) Neutrophils % Neutrophils % (Manual) Band Neutrophils % Lymphocytes % Lymphocytes % (Manual) Monocytes % Monocytes % (Manual) Eosinophils % Eosinophils % (Manual) Basophils % Basophils % (Manual) Myelocytes % (Man) Promyelocytes % (Man) Blast Cells % (Manual) Nucleated RBC % Metamyelocytes Hypochromia Platelet Estimate Polychromasia Poikilocytosis Anisocytosis Microcytosis Macrocytosis Ovalocytes PT with INR INR PTT (Actin FS) Anticoagulation Therapy Puncture Site ABG pH ABG pCO2 at Pt Temp ABG pO2 at Pt Temp ABG HCO3 ABG O2 Sat (Measured) ABG O2 Content ABG Base Excess Nam Test O2 Delivery Device Oxygen Flow Rate Vent Mode Vent Rate Mechanical Rate Pressure Support Vent Sodium Potassium Chloride Carbon Dioxide Anion Gap BUN Creatinine Est GFR (CKD-EPI)AfAm Est GFR (CKD-EPI)NonAf POC Glucometer 152 114 Random Glucose Calcium Phosphorus Magnesium Total Bilirubin AST ALT Alkaline Phosphatase Creatine Kinase Troponin I B-Natriuretic Peptide Total Protein Albumin 08/21/19 08/21/19 08/21/19 07:15 11:10 17:01 WBC RBC Hgb Hct MCV MCH MCHC RDW Plt Count MPV Absolute Neuts (auto) Neutrophils % Neutrophils % (Manual) Band Neutrophils % Lymphocytes % Lymphocytes % (Manual) Monocytes % Monocytes % (Manual) Eosinophils % Eosinophils % (Manual) Basophils % Basophils % (Manual) Myelocytes % (Man) Promyelocytes % (Man) Blast Cells % (Manual) Nucleated RBC % Metamyelocytes Hypochromia Platelet Estimate Polychromasia Poikilocytosis Anisocytosis Microcytosis Macrocytosis Ovalocytes PT with INR INR PTT (Actin FS) Anticoagulation Therapy Puncture Site ABG pH ABG pCO2 at Pt Temp ABG pO2 at Pt Temp ABG HCO3 ABG O2 Sat (Measured) ABG O2 Content ABG Base Excess Nam Test O2 Delivery Device Oxygen Flow Rate Vent Mode Vent Rate Mechanical Rate Pressure Support Vent Sodium 144 Potassium 3.0 L Chloride 104 Carbon Dioxide 34 H Anion Gap 6 L BUN 10.4 Creatinine 0.8 Est GFR (CKD-EPI)AfAm 81.27 Est GFR (CKD-EPI)NonAf 70.12 POC Glucometer 151 155 Random Glucose 123 H Calcium 7.9 L Phosphorus Magnesium 1.6 L Total Bilirubin 1.0 AST 23 ALT 15 Alkaline Phosphatase 64 Creatine Kinase Troponin I B-Natriuretic Peptide Total Protein 6.1 L Albumin 3.2 L 08/21/19 08/21/19 08/21/19 19:00 19:00 19:00 WBC 2.1 L RBC 3.68 Hgb 11.8 Hct 37.7 MCV 102.4 H MCH 32.0 MCHC 31.2 L RDW 17.0 H Plt Count 42 L MPV 7.6 Absolute Neuts (auto) 1.5 Neutrophils % 68.7 Neutrophils % (Manual) Band Neutrophils % Lymphocytes % 18.9 D Lymphocytes % (Manual) Monocytes % 9.0 Monocytes % (Manual) Eosinophils % 2.5 D Eosinophils % (Manual) Basophils % 0.9 Basophils % (Manual) Myelocytes % (Man) Promyelocytes % (Man) Blast Cells % (Manual) Nucleated RBC % 0 Metamyelocytes Hypochromia Platelet Estimate Polychromasia Poikilocytosis Anisocytosis Microcytosis Macrocytosis Ovalocytes PT with INR INR PTT (Actin FS) Anticoagulation Therapy Puncture Site ABG pH ABG pCO2 at Pt Temp ABG pO2 at Pt Temp ABG HCO3 ABG O2 Sat (Measured) ABG O2 Content ABG Base Excess Nam Test O2 Delivery Device Oxygen Flow Rate Vent Mode Vent Rate Mechanical Rate Pressure Support Vent Sodium 142 Potassium 3.6 3.5 Chloride 103 Carbon Dioxide 33 H Anion Gap 5 L BUN 9.2 Creatinine 0.8 Est GFR (CKD-EPI)AfAm 81.27 Est GFR (CKD-EPI)NonAf 70.12 POC Glucometer Random Glucose 146 H Calcium 8.1 L Phosphorus Magnesium 1.7 L Total Bilirubin AST ALT Alkaline Phosphatase Creatine Kinase Troponin I B-Natriuretic Peptide Total Protein Albumin 08/21/19 08/22/19 08/22/19 21:39 06:23 07:00 WBC 1.9 L* RBC 3.70 Hgb 11.9 Hct 37.5 MCV 101.2 H MCH 32.2 MCHC 31.8 L RDW 17.1 H Plt Count 42 L MPV 7.6 Absolute Neuts (auto) 1.2 L Neutrophils % 63.3 Neutrophils % (Manual) 72.3 Band Neutrophils % 0.0 Lymphocytes % 22.0 Lymphocytes % (Manual) 12.9 Monocytes % 10.0 Monocytes % (Manual) 8 Eosinophils % 3.5 Eosinophils % (Manual) 2.0 Basophils % 1.2 Basophils % (Manual) 2.0 Myelocytes % (Man) 0 Promyelocytes % (Man) 0 Blast Cells % (Manual) 0 Nucleated RBC % 0 Metamyelocytes 0 Hypochromia 1+ Platelet Estimate Decreased Polychromasia 0 Poikilocytosis 0 Anisocytosis 1+ Microcytosis 0 Macrocytosis 1+ Ovalocytes 1+ PT with INR INR PTT (Actin FS) Anticoagulation Therapy Puncture Site ABG pH ABG pCO2 at Pt Temp ABG pO2 at Pt Temp ABG HCO3 ABG O2 Sat (Measured) ABG O2 Content ABG Base Excess Nam Test O2 Delivery Device Oxygen Flow Rate Vent Mode Vent Rate Mechanical Rate Pressure Support Vent Sodium Potassium Chloride Carbon Dioxide Anion Gap BUN Creatinine Est GFR (CKD-EPI)AfAm Est GFR (CKD-EPI)NonAf POC Glucometer 158 117 Random Glucose Calcium Phosphorus Magnesium Total Bilirubin AST ALT Alkaline Phosphatase Creatine Kinase Troponin I B-Natriuretic Peptide Total Protein Albumin 08/22/19 08/22/19 08/22/19 07:00 11:08 17:51 WBC RBC Hgb Hct MCV MCH MCHC RDW Plt Count MPV Absolute Neuts (auto) Neutrophils % Neutrophils % (Manual) Band Neutrophils % Lymphocytes % Lymphocytes % (Manual) Monocytes % Monocytes % (Manual) Eosinophils % Eosinophils % (Manual) Basophils % Basophils % (Manual) Myelocytes % (Man) Promyelocytes % (Man) Blast Cells % (Manual) Nucleated RBC % Metamyelocytes Hypochromia Platelet Estimate Polychromasia Poikilocytosis Anisocytosis Microcytosis Macrocytosis Ovalocytes PT with INR INR PTT (Actin FS) Anticoagulation Therapy Puncture Site ABG pH ABG pCO2 at Pt Temp ABG pO2 at Pt Temp ABG HCO3 ABG O2 Sat (Measured) ABG O2 Content ABG Base Excess Nam Test O2 Delivery Device Oxygen Flow Rate Vent Mode Vent Rate Mechanical Rate Pressure Support Vent Sodium 144 Potassium 3.8 Chloride 105 Carbon Dioxide 35 H Anion Gap 4 L BUN 8.1 Creatinine 0.8 Est GFR (CKD-EPI)AfAm 81.27 Est GFR (CKD-EPI)NonAf 70.12 POC Glucometer 137 113 Random Glucose 116 H Calcium 8.1 L Phosphorus Magnesium Total Bilirubin 0.6 AST 23 ALT 16 Alkaline Phosphatase 67 Creatine Kinase Troponin I B-Natriuretic Peptide Total Protein 6.2 L Albumin 3.3 L 08/22/19 08/23/19 21:47 06:48 WBC RBC Hgb Hct MCV MCH MCHC RDW Plt Count MPV Absolute Neuts (auto) Neutrophils % Neutrophils % (Manual) Band Neutrophils % Lymphocytes % Lymphocytes % (Manual) Monocytes % Monocytes % (Manual) Eosinophils % Eosinophils % (Manual) Basophils % Basophils % (Manual) Myelocytes % (Man) Promyelocytes % (Man) Blast Cells % (Manual) Nucleated RBC % Metamyelocytes Hypochromia Platelet Estimate Polychromasia Poikilocytosis Anisocytosis Microcytosis Macrocytosis Ovalocytes PT with INR INR PTT (Actin FS) Anticoagulation Therapy Puncture Site ABG pH ABG pCO2 at Pt Temp ABG pO2 at Pt Temp ABG HCO3 ABG O2 Sat (Measured) ABG O2 Content ABG Base Excess Nam Test O2 Delivery Device Oxygen Flow Rate Vent Mode Vent Rate Mechanical Rate Pressure Support Vent Sodium Potassium Chloride Carbon Dioxide Anion Gap BUN Creatinine Est GFR (CKD-EPI)AfAm Est GFR (CKD-EPI)NonAf POC Glucometer 153 108 Random Glucose Calcium Phosphorus Magnesium Total Bilirubin AST ALT Alkaline Phosphatase Creatine Kinase Troponin I B-Natriuretic Peptide Total Protein Albumin Active Medications Generic Name Dose Route Start Last Admin Trade Name Freq PRN Reason Stop Dose Admin Acetaminophen 650 mg 08/19/19 09:54 08/22/19 21:46 Tylenol - PO 650 mg Q4H PRN Administration PAIN OR FEVER Albuterol Sulfate 1 amp 08/20/19 14:00 08/23/19 07:20 Ventolin 0.083% Nebulizer Soln - NEB 1 amp RTID KRIS Administration Cyanocobalamin 1,000 mcg 08/19/19 10:00 08/22/19 10:17 Vitamin B12 - PO 1,000 mcg DAILY KRIS Administration Ferrous Sulfate 325 mg 08/19/19 10:00 08/22/19 10:17 Feosol - PO 325 mg DAILY KRIS Administration Furosemide 40 mg 08/19/19 10:00 08/22/19 10:22 Lasix - PO 40 mg DAILY KRIS Administration Insulin Aspart 1 vial 08/19/19 07:00 08/23/19 06:49 Novolog Vial Sliding Scale - SQ Not Given ACHS KRIS Protocol Magnesium Chloride 64 mg 08/23/19 10:00 Slow-Mag - PO DAILY KRIS Metoprolol Succinate 25 mg 08/19/19 22:00 08/22/19 21:46 Toprol Xl - PO 25 mg HS KRIS Administration Nystatin 1 applic 08/20/19 10:45 08/22/19 10:17 Nystop Powder - TP 1 applic DAILY KRIS Administration Potassium Chloride 40 meq 08/22/19 10:00 08/22/19 10:16 K-Dur - PO 40 meq DAILY KRIS Administration Pregabalin 100 mg 08/19/19 22:00 08/22/19 21:46 Lyrica - PO 100 mg HS KRIS Administration Ranitidine HCl 150 mg 08/23/19 10:00 Zantac - PO DAILY KRIS Tiotropium [place] 2 puff 08/19/19 10:00 08/22/19 10:17 Spiriva Respimat IH 2 puff DAILY KRIS Administration Constitutional: Yes: No Distress, Calm Eyes: Yes: Conjunctiva Clear HENT: Yes: Atraumatic Cardiovascular: Yes: Regular Rate and Rhythm Respiratory: Yes: Regular, CTA Bilaterally, On Nasal O2 Gastrointestinal: Yes: Normal Bowel Sounds, Soft Musculoskeletal: Yes: Muscle Weakness Extremities: Yes: WNL Edema: No Neurological: Yes: Alert, Oriented Psychiatric: Yes: Alert, Oriented Labs: CBC, BMP 08/22/19 07:00 08/22/19 07:00 Discharge Summary Problems reviewed: Yes Reason For Visit: ACUTE ON CHRONIC CONGESTIVE HEART FAILURE Current Active Problems CHF exacerbation (Acute) COPD (chronic obstructive pulmonary disease) (Chronic) Thrombocytopenia (Chronic) Hospital Course: The pt is a 78F w/ a history of HFpEF, pericardial effusion, COPD (2L NC), OA who presents for evaluation of 1 week of worsening SOB/MULLIGAN w/ associated generalized weakness. She reports chronic cough productive cough, denies fevers , chest pain, BLE swelling, N/V/C/D, dysuria, hematuria, or blood in her stool. She tried taking one of her late 's Lasix with no relief. She has been using her nebulizer at home with no relief (none today). While in patient followed by [facility]Ardiology and Pulmonary. Placed on diuretics, bronchodilators, and oxygenation therapy and responded well to treatment. Condition: Fair - Instructions Diet, Activity, Other Instructions: follow up with PMD Patient discharge to SNF for Pulmonary Rehab and PT in SNF patient will need: WEEKLY CBC AND CMP, DAILY WEIGHTS, CONSULT WITH PULMONARY DR SMITH continue with medication as prescribed return to ER if develop severe pain, respiratory distress, chest pain Referrals: Cody Adorno MD [Primary Care Provider] - Disposition: [facility] - Home Medications Comprehensive Discharge Medication List: Ambulatory Orders Ezetimibe/Simvastatin [Vytorin 10-20 mg Tablet] 1 each PO HS 05/03/12 Metoprolol Succinate [Toprol XL -] 25 mg PO HS 05/03/12 Pregabalin [Lyrica] 100 mg PO HS 05/03/12 Cyanocobalamin [Vitamin B12 -] 1,000 mcg PO DAILY 06/18/14 Pantoprazole Sodium [Protonix -] 40 mg PO BID #60 tab 08/14/17 Glyburide 2.5 mg PO BID 06/27/19 Metformin HCl [Glucophage] 500 mg PO DAILY 06/27/19 Tiotropium [place] [Spiriva Respimat] 1 inh IH DAILY 06/29/19 Ferrous Sulfate [Iron] 325 mg PO DAILY 08/18/19 Acetaminophen [Tylenol .Regular Strength -] 650 mg PO Q4H PRN tablet 08/23/19 Albuterol 0.083% Nebulizer [place] [Ventolin 0.083% Nebulizer Soln -] 1 amp NEB RTID amp 08/23/19 Cyanocobalamin [Vitamin B12 -] 1,000 mcg PO DAILY tablet 08/23/19 Ferrous Sulfate [Feosol] 325 mg PO DAILY ud 08/23/19 Furosemide [Lasix -] 40 mg PO DAILY tablet 08/23/19 Insulin Sliding Scale [Novolog Vial Sliding Scale -] 1 vial SQ ACHS units 08/23 Magnesium Chloride [Slow-Mag -] 64 mg PO DAILY tablet.sa 08/23/19 Metoprolol Succinate [Toprol XL -] 25 mg PO HS tab.sr.24h 08/23/19 Nystatin Powder [Nystop Powder -] 1 applic TP DAILY applic 08/23/19 Pantoprazole Sodium [Protonix -] 40 mg PO DAILY tablet.ec 08/23/19 Potassium Chloride [K-Dur -] 40 meq PO DAILY tablet.er 08/23/19 Pregabalin [Lyrica -] 100 mg PO HS capsule MDD 1 08/23/19 Ranitidine [Zantac -] 150 mg PO DAILY tablet 08/23/19 Tiotropium [place] [Spiriva Respimat] 2 puff IH DAILY inhaler 08/23/19
[2019-08-23] MEDS: FUROSEMIDE 40 MG TABLET (FP) PO SCH (10:08)
[2019-08-23] MEDS: FERROUS SO4 325 MG TABLET (FP) PO SCH (10:08)
[2019-08-23] MEDS: POTASSIUM CHLORIDE TABS 20 MEQ TABLET.ER (FP) PO SCH (10:08)
[2019-08-23] MEDS: CYANOCOBALAMIN 1,000 MCG TABLET (FP) PO SCH (10:08)
--- NOTE | 2019-08-23 10:09 | PN ---
Progress Note (short form) - Note Progress Note: PULMONARY Denies shortness of breath or chest pain. +cough with clear sputum. No fevers or chills. Vital Signs Period Temp Pulse Resp BP Sys/Rider Pulse Ox Last 24 Hr 97.9 F-98.3 F 80-88 18-20 99-136/51-66 94-94 Gen: NAD at rest Heart: RRR Lung: decreased breath sounds at the bases, no wheezes Abd: soft, nontender Ext: no edema CBC, BMP 08/22/19 07:00 08/22/19 07:00 Active Medications Acetaminophen (Tylenol -) 650 mg PO Q4H PRN PRN Reason: PAIN OR FEVER Last Admin: 08/22/19 21:46 Dose: 650 mg Albuterol Sulfate (Ventolin 0.083% Nebulizer Soln -) 1 amp NEB RTID [facility] Last Admin: 08/23/19 07:20 Dose: 1 amp Cyanocobalamin (Vitamin B12 -) 1,000 mcg PO DAILY [facility] Last Admin: 08/22/19 10:17 Dose: 1,000 mcg Ferrous Sulfate (Feosol -) 325 mg PO DAILY [facility] Last Admin: 08/22/19 10:17 Dose: 325 mg Furosemide (Lasix -) 40 mg PO DAILY [facility] Last Admin: 08/22/19 10:22 Dose: 40 mg Insulin Aspart (Novolog Vial Sliding Scale -) 1 vial SQ ACHS [facility]; Protocol Last Admin: 08/23/19 06:49 Dose: Not Given Magnesium Chloride (Slow-Mag -) 64 mg PO DAILY [facility] Metoprolol Succinate (Toprol Xl -) 25 mg PO HS [facility] Last Admin: 08/22/19 21:46 Dose: 25 mg Nystatin (Nystop Powder -) 1 applic TP DAILY [facility] Last Admin: 08/22/19 10:17 Dose: 1 applic Potassium Chloride (K-Dur -) 40 meq PO DAILY [facility] Last Admin: 08/22/19 10:16 Dose: 40 meq Pregabalin (Lyrica -) 100 mg PO HS [facility] Last Admin: 08/22/19 21:46 Dose: 100 mg Ranitidine HCl (Zantac -) 150 mg PO DAILY [facility] Tiotropium [place] (Spiriva Respimat) 2 puff IH DAILY [facility] Last Admin: 08/22/19 10:17 Dose: 2 puff A/P Acute Bronchitis LV Diastolic Dysfunction COPD Chronic Hypoxic Respiratory Failure Pericardial Effusion Thrombocytopenia Leukopenia DM - continue lasix - monitor urine output, creatinine - replete lytes - O2 to keep SpO2 >90% - inhaled bronchodilators - DVT prophylaxis - d/c planning in progress
[2019-08-23] MEDS ORDERED: PT OWN MED DRAWER 7, Y5N ONE (10:11)
[2019-08-23] MEDS: NYSTATIN POWDER 100,000 UNITS/GM - 15 GM TOPICAL POWDER TP SCH (10:13)
[2019-08-23] MEDS: TIOTROPIUM BROMIDE 2.5 MCG (SPIRIVA) RESPIMAT INHALER IH SCH (10:14)
--- NOTE | 2019-08-23 11:41 | PN ---
Progress Note (short form) - Note Progress Note: s: no chest pain, palps, dizziness, dyspnea Current Medications Generic Name Dose Route Start Last Admin Trade Name Freq PRN Reason Stop Dose Admin Acetaminophen 650 mg 08/19/19 09:54 08/22/19 21:46 Tylenol - PO 650 mg Q4H PRN Administration PAIN OR FEVER Albuterol Sulfate 1 amp 08/20/19 14:00 08/23/19 07:20 Ventolin 0.083% Nebulizer Soln - NEB 1 amp RTID KRIS Administration Cyanocobalamin 1,000 mcg 08/19/19 10:00 08/23/19 10:08 Vitamin B12 - PO 1,000 mcg DAILY KRIS Administration Ferrous Sulfate 325 mg 08/19/19 10:00 08/23/19 10:08 Feosol - PO 325 mg DAILY KRIS Administration Furosemide 40 mg 08/19/19 10:00 08/23/19 10:08 Lasix - PO 40 mg DAILY KRIS Administration Insulin Aspart 1 vial 08/19/19 07:00 08/23/19 06:49 Novolog Vial Sliding Scale - SQ Not Given ACHS KRIS Protocol Magnesium Chloride 64 mg 08/23/19 10:00 08/23/19 10:12 Slow-Mag - PO 64 mg DAILY KRIS Administration Metoprolol Succinate 25 mg 08/19/19 22:00 08/22/19 21:46 Toprol Xl - PO 25 mg HS KRIS Administration Nystatin 1 applic 08/20/19 10:45 08/23/19 10:13 Nystop Powder - TP 1 applic DAILY KRIS Administration Potassium Chloride 40 meq 08/22/19 10:00 08/23/19 10:08 K-Dur - PO 40 meq DAILY KRIS Administration Pregabalin 100 mg 08/19/19 22:00 08/22/19 21:46 Lyrica - PO 100 mg HS KRIS Administration Ranitidine HCl 150 mg 08/23/19 10:00 08/23/19 10:08 Zantac - PO 150 mg DAILY KRIS Administration Tiotropium [place] 2 puff 08/19/19 10:00 08/23/19 10:14 Spiriva Respimat IH 2 puff DAILY KRIS Administration Vital Signs Period Temp Pulse Resp BP Sys/Rider Pulse Ox Last 24 Hr 97.9 F-98.3 F 80-88 18-20 99-136/51-66 94-94 Constitutional: Yes: No Distress Cardiovascular: Yes: Regular Rate and Rhythm Respiratory: Yes: cta bl nl eff Gastrointestinal: Yes: Soft Edema: No Neurological: Yes: Alert, Oriented no jaundice, diaphoresis not agitated CBC, BMP 08/22/19 07:00 08/22/19 07:00 Assessment/Plan IMP: Probable acute on chronic exacerbation diastolic CHF Known chronic moderate pericardial effusion, no tamponade (-SAADIA/ESR/TSH, recent chest CT no mass) CAD s/p [place] and prior cath (remote)- anatomy not amenable to revasc per her report Chronic COPD 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 BNP is sig elevated since June (previously 500 now close to 3K) w/ CXR showing congestion. - received IV lasix with improvement, now appears euvolemic - cont PO lasix - nuclear pharmacologic stress test deferred as she is not a candidate for intervention due to inability to give DAPT (prior GIB and thrombocytopenia); CAD is already known thus stress not helpful for dx. Added info from stress test would not change our management. 2. History of pericardial effusion. clinically does not appear to be in tamponade. Repeat echo shows large effusion >2 cm, imaging inconclusive for cardiac tamponade - echo images reviewed, discussed with interventional at [facility] and with patient. She declines transfer for further evaluation of pericardial effusion and possible diagnostic tap as she is high risk given cirrhosis, thrombocytopenia. She would not want any procedures unless emergent. 3. Continue Toprol for HTN/AAA which has been recently imaged here and is under Vascular surveillance (Sandra). 4. Not on ASA for CAD due to h/o GI, including recent admission for anemia and GIB. 5. Manage COPD per pulm cardiac bryant stable for dc
== END 2019-08-23 13:21 | DRG 202 ==
LOC: JER 17:39 → JERBED 20:04 → J8W 08-19 01:15
PROVIDERS: ADMIT Family Medicine; ATTEND Family Medicine
DX: J20.9 Acute bronchitis, unspecified (principal); I50.33 Acute on chronic diastolic (congestive) heart failure; J96.11 Chronic respiratory failure with hypoxia; I31.3 Pericardial effusion (noninflammatory); I45.2 Bifascicular block; I24.8 Other forms of acute ischemic heart disease; J98.11 Atelectasis; I11.0 Hypertensive heart disease with heart failure; J44.9 Chronic obstructive pulmonary disease, unspecified; D69.6 Thrombocytopenia, unspecified; E78.5 Hyperlipidemia, unspecified; D64.9 Anemia, unspecified; K74.60 Unspecified cirrhosis of liver; E11.9 Type 2 diabetes mellitus without complications; I71.4 Abdominal aortic aneurysm, without rupture; E87.6 Hypokalemia; D72.819 Decreased white blood cell count, unspecified; I25.10 Atherosclerotic heart disease of native coronary artery without angina pectoris
CPT/HCPCS: 36415; 36600; 71045-TC-FY; 80048; 80053; 82550; 82803; 82962; 83735; 83880; 84100; 84132; 84484; 85025; 85027; 85610; 85730; 93005; 93010; 93306-TC; 94640; 94660; 97116-GP; 97161-GP; 99285-25; G0008; Q2036

== ENCOUNTER 2020-01-11 13:18 | Inpatient (IN) | payer OTHER, MEDICARE ==
[2020-01-11 14:43] LABS: BASO % 0.7 % (0-2.0); EOS % 1.4 % (0-4.5); HEMATOCRIT 31.9 % (32.4-45.2); HEMOGLOBIN 10.9 GM/dl (10.7-15.3); LYMPH % 15.8 % (8-40); MCH 34.3 pg (25.7-33.7); MCHC 34.1 g/dl (32.0-36.0); MEAN CELL VOLUME 100.3 fl (80-96); MEAN PLT VOLUME 7.1 fl (7.5-11.1); MONO % 10.4 % (3.8-10.2); NEUT % 71.7 % (42.8-82.8); PLATELET COUNT 71 K/MM3 (134-434); RBC 3.18 M/mm3 (3.60-5.2); RDW 14.9 % (11.6-15.6); WHITE BLOOD COUNT 5.4 K/mm3 (4.0-10.8)
[2020-01-11 14:48] LABS: INR 1.31 (0.82-1.09); PROTHROMBIN TIME (PATIENT) 14.6 SEC (10.2-13.0)
[2020-01-11 14:52] LABS: ALBUMIN 3.7 g/dl (3.4-5.0); BILIRUBIN,TOTAL 1.2 mg/dl (0.2-1); CALCIUM 8.3 mg/dl (8.5-10); CREATININE 1.1 mg/dl (0.55-1.3); POTASSIUM 4.5 mmol/L (3.5-5.1); TOT PROT 6.4 g/dl (6.4-8.2)
--- NOTE | 2020-01-11 15:14 | PDOC ---
Documentation entered by Maame Allison SCRIBE, acting as scribe for Meka Zamarripa MD. Meka Zamarripa MD: This documentation has been prepared by the Estefany tompkins Brenda, SCRIBE, under my direction and personally reviewed by me in its entirety. I confirm that the documentation accurately reflects all work, treatment, procedures, and medical decision making performed by me. History of Present Illness - General Chief Complaint: Rectal Bleed Stated Complaint: rectal bleed Time Seen by Provider: 01/11/20 13:20 History Source: Patient Exam Limitations: No Limitations - History of Present Illness Initial Comments: 01/11/20 14:25 The patient is an 79 year old female with a significant medical history of HFpEF , pericardial effusion, COPD (2L NC), OA, NIDDM and HLD who presents to the ED for evaluation of rectal bleeding. Pt states she has had heavy rectal bleeding "filling the toilet" since yesterday. She states she was not straining. Her stool was loose/watery, noted to have blood in it. She did not initially have rectal pain, but states she is sore at present. Denies abd pain. Allergies: NKA Surgical Hx: Cholecystectomy, appendectomy, umbilical hernia repair Past History - Past Medical History Allergies/Adverse Reactions: Allergies Allergy/AdvReac Type Severity Reaction Status Date / Time No Known Drug Allergies Allergy Verified 08/18/19 17:41 Home Medications: Ambulatory Orders Ezetimibe 10 mg PO DAILY 01/11/20 Furosemide 40 mg PO DAILY 01/11/20 Metoprolol Succinate 25 mg PO DAILY 01/11/20 Potassium Chloride 20 meq PO DAILY 01/11/20 Pregabalin [Lyrica] 100 mg PO DAILY 01/11/20 Simvastatin [Zocor] 20 mg PO HS 01/11/20 Vitamin B12 1 tab PO DAILY 01/11/20 Lidocaine 1 each TP DAILY PRN 01/12/20 Anemia: Yes Asthma: No Cancer: No Cardiac Disorders: No CVA: No COPD: Yes CHF: No Dementia: No Diabetes: Yes (NIDDM) GI Disorders: Yes (diverticulosis,constipation) Disorders: No HTN: Yes Hypercholesterolemia: Yes Liver Disease: No Seizures: No - Surgical History Abdominal Surgery: Yes (repair umbilical hernia) Appendectomy: Yes Cardiac Surgery: No Cholecystectomy: Yes Lung Surgery: No Neurologic Surgery: No Orthopedic Surgery: Yes (ORIF, RIGHT ANKLE) - Immunization History Immunization Up to Date: Yes - Psycho Social/Smoking Cessation Hx Smoking History: Former smoker Have you smoked in the past 12 months: No If you are a former smoker, when did you quit?: 2001 'Breaking Loose' booklet given: 05/04/12 Hx Alcohol Use: No Drug/Substance Use Hx: No Substance Use Type: None Hx Substance Use Treatment: No Review of Systems - Review of Systems Able to Perform ROS?: Yes Comments:: GENERAL/CONSTITUTIONAL: No fever or chills. No weakness. HEAD, EYES, EARS, NOSE AND THROAT: No change in vision. No ear pain or discharge. No sore throat. CARDIOVASCULAR: No chest pain or shortness of breath. RESPIRATORY: No cough, wheezing, or hemoptysis. GASTROINTESTINAL: No nausea, vomiting. +Diarrhea. GENITOURINARY: No dysuria, frequency, or change in urination. MUSCULOSKELETAL: No joint or muscle swelling or pain. No neck or back pain. SKIN: No rash. NEUROLOGIC: No headache, vertigo, loss of consciousness, or change in strength/ sensation. ENDOCRINE: No increased thirst. No abnormal weight change. HEMATOLOGIC/LYMPHATIC: No anemia. +History of thrombocytopenia ALLERGIC/IMMUNOLOGIC: No hives or skin allergy. *Physical Exam - Vital Signs Last Vital Signs Temp Pulse Resp BP Pulse Ox 98.2 F 95 H 20 114/48 L 95 01/11/20 13:19 01/11/20 13:19 01/11/20 13:19 01/11/20 13:19 01/11/20 13:19 - Physical Exam GENERAL: Awake, alert, and fully oriented, in no acute distress HEAD: No signs of trauma EYES: PERRLA, EOMI, sclera anicteric, conjunctiva clear, no conjunctival pallor ENT: Auricles normal inspection, hearing grossly normal, nares patent, oropharynx clear without exudates. Moist mucosa NECK: Normal ROM, supple, no lymphadenopathy, JVD, or masses LUNGS: Breath sounds equal, clear to auscultation bilaterally. No wheezes, and no crackles HEART: Regular rate and rhythm, normal S1 and S2, no murmurs, rubs or gallops ABDOMEN: Soft, nontender, normoactive bowel sounds. No guarding, no rebound. No masses EXTREMITIES: Normal range of motion, no edema. No clubbing or cyanosis. No cords, erythema, or tenderness NEUROLOGICAL: Cranial nerves II through XII grossly intact. Normal speech, normal gait. Motor and sensation intact SKIN: Warm, dry, normal turgor, no rashes or lesions noted. RECTAL: Multiple hemorrhoids noted, no active bleeding, however, dried blood noted. Nontender. Scant stool, appears maroon Heart Score/ECG Review - ECG Impressions Comment:: EKG read 15:51- NSR 77 bpm, sinus arrhythmia, RBBB ED Treatment Course - LABORATORY CBC & Chemistry Diagram: 01/16/20 07:41 01/16/20 07:41 Medical Decision Making - Medical Decision Making 01/11/20 14:45 Unclear if blood is from hemorrhoidal bleeding (as she has multiple hemorrhoids) , or this is melena. Will send labs, will monitor in ED. 01/11/20 15:13 Pt noted to have very high BUN, which would suggest GIB in light of dark stool and history of thrombocytopenia. Will plan for admission. 01/11/20 15:[address] Nelson's service for admission, awaiting callback. 01/11/20 15:[address] Nelson directly, awaiting callback. 01/11/20 17:[address] Nelson's service by MARIELLA Lane. 01/11/20 17:56 Case d/w ICU resident Dr. Chapman. Accepted to ICU. Nursing pbx supervisor in ED to expedite bed placement. Discharge - Discharge Information Problems reviewed: Yes Clinical Impression/Diagnosis: GI bleed Qualifiers: GI bleed type/associated pathology: unspecified gastrointestinal hemorrhage type Qualified Code(s): K92.2 - Gastrointestinal hemorrhage, unspecified Condition: Guarded - Admission Yes - Follow up/Referral - Patient Discharge Instructions - Post Discharge Activity
[2020-01-11] MEDS ORDERED: PANTOPRAZOLE SODIUM 80 MG in SODIUM CHLORIDE 100 ML IVPB SCH (15:30)
[2020-01-11] MEDS ORDERED: PANTOPRAZOLE SODIUM 40 MG VIAL IVPUSH ONE (15:30)
[2020-01-11] MEDS ORDERED: PANTOPRAZOLE SODIUM 40 MG VIAL ONE (16:04)
[2020-01-11] MEDS ORDERED: SODIUM CHLORIDE 500 ML IV STA ×2 (16:43→17:46)
[2020-01-11 21:15] LABS: TOTAL IRON BINDING CAPACITY 352 ug/dL (250-450)
[2020-01-11 21:16] LABS: IRON SERUM 68 ug/dL (50-175)
--- NOTE | 2020-01-11 21:17 | CONSULT ---
Consultation: REQUESTING PROVIDER: CONSULT REQUEST: We have been asked to medically evaluate this patient for hypotensive GI bleed HISTORY OF PRESENT ILLNESS: 79 y/o F with hx of CHF, NIDDM, HTN, pericardial effusion, COPD (on 2LNC prn at home), thrombocytopenia presenting from [facility] ED for GI bleed with BP 87/ 58. Patient states she was in her normal state of health until yesterday when had several episodes of bloody diarrhea. Stool were initially melanotic appearing but became large volume willian blood with clots. Today she had additional episodes of bloody stool and called Dr Seals and was recommended to go the ER. On initial arrival to [facility], BP 114/48 with Hb 10.9 and patient mentating well. Subsequent BP readings were hypotensive with BP 80s/40s and HR 90s, Plt 71. FOBT was positive and 1 melena episode in [facility] ER; protonix and ivf was started s/p 1L. On arrival to [facility] ICU, patient mentating with BP 101/66. She is alert and oriented and currently has no complaints. Denies fever, chills, chest pain, palpitations, SOB, abd pain, nausea, vomiting, hematemesis, rectal pain, ARAMBULA, LH , dizziness, dysuria, weakness. Of note, patient states she is not supposed to be taking any anti-platelet therapy due to thrombocytopenia but took 2 baby aspirins in the past 2 weeks for shoulder pain REVIEW OF SYSTEMS: CONSTITUTIONAL: Absent: fever, chills, diaphoresis, generalized weakness, malaise, loss of appetite, weight change HEENT: Absent: rhinorrhea, nasal congestion, throat pain, throat swelling, difficulty swallowing, mouth swelling, ear pain, eye pain, visual changes CARDIOVASCULAR: Absent: chest pain, syncope, palpitations, irregular heart rate, lightheadedness , peripheral edema RESPIRATORY: Absent: cough, shortness of breath, dyspnea with exertion, orthopnea, wheezing, stridor, hemoptysis GASTROINTESTINAL: +melena/hematochezia Absent: abdominal pain, abdominal distension, nausea, vomiting, diarrhea, constipation GENITOURINARY: Absent: dysuria, frequency, urgency, hesitancy, hematuria, flank pain, genital pain MUSCULOSKELETAL: Absent: myalgia, arthralgia, joint swelling, back pain, neck pain SKIN: Absent: rash, itching, pallor HEMATOLOGIC/IMMUNOLOGIC: Absent: easy bleeding, easy bruising, lymphadenopathy, frequent infections ENDOCRINE: Absent: unexplained weight gain, unexplained weight loss, heat intolerance, cold intolerance NEUROLOGIC: Absent: headache, focal weakness or paresthesias, dizziness, unsteady gait, seizure, mental status changes, bladder or bowel incontinence PSYCHIATRIC: Absent: anxiety, depression, suicidal or homicidal ideation, hallucinations. PHYSICAL EXAMINATION Vital Signs - 24 hr 01/11/20 01/11/20 01/11/20 13:19 16:30 17:32 Temperature 98.2 F Pulse Rate 95 H Pulse Rate [ 83 84 Left] Respiratory 20 20 20 Rate Blood Pressure 114/48 L Blood Pressure 91/49 L 87/57 L [Right Arm] O2 Sat by Pulse 95 98 Oximetry (%) 01/11/20 01/11/20 18:58 19:13 Temperature Pulse Rate Pulse Rate [ 79 82 Left] Respiratory 20 21 H Rate Blood Pressure Blood Pressure 107/64 82/46 L [Right Arm] O2 Sat by Pulse 98 Oximetry (%) GENERAL: Awake, alert, and fully oriented, in no acute distress. HEAD: Normal with no signs of trauma. EYES: Pupils equal, round and reactive to light, extraocular movements intact, sclera anicteric, conjunctiva clear. No lid lag. EARS, NOSE, THROAT: Ears normal, nares patent, oropharynx clear without exudates. Moist mucous membranes. NECK: Normal range of motion, supple without lymphadenopathy, JVD, or masses. LUNGS: Breath sounds equal, clear to auscultation bilaterally. No wheezes, and no crackles. No accessory muscle use. HEART: Regular rate and rhythm, normal S1 and S2, +systolic murmur ABDOMEN: Soft, nontender, not distended, normoactive bowel sounds, no guarding, no rebound, no masses. No hepatomegaly or splenomegaly. MUSCULOSKELETAL: Normal range of motion at all joints. No bony deformities or tenderness. No CVA tenderness. LOWER EXTREMITIES: 2+ pulses, warm, well-perfused. No calf tenderness. No peripheral edema. NEUROLOGICAL: Cranial nerves II-XII intact. Normal speech. Normal gait. PSYCHIATRIC: Cooperative. Good eye contact. Appropriate mood and affect. SKIN: Warm, dry, normal turgor, no rashes or lesions noted. Laboratory Results - last 24 hr 01/11/20 01/11/20 01/11/20 14:18 14:18 14:18 WBC 5.4 RBC 3.18 L Hgb 10.9 Hct 31.9 L MCV 100.3 H MCH 34.3 H MCHC 34.1 RDW 14.9 Plt Count 71 L MPV 7.1 L Absolute Neuts (auto) 3.8 Neutrophils % 71.7 Lymphocytes % 15.8 Monocytes % 10.4 H Eosinophils % 1.4 Basophils % 0.7 Retic Count PT with INR 14.6 H INR 1.31 H Sodium 134 L Potassium 4.5 Chloride 106 Carbon Dioxide 22 Anion Gap 6 L BUN 46.0 H Creatinine 1.1 Est GFR (CKD-EPI)AfAm 54.91 Est GFR (CKD-EPI)NonAf 47.38 Random Glucose 133 H Calcium 8.3 L Total Bilirubin 1.2 H AST 23 ALT 12 L Alkaline Phosphatase 48 Total Protein 6.4 Albumin 3.7 Stool Occult Blood Blood Type Antibody Screen 01/11/20 01/11/20 01/11/20 14:18 14:18 14:53 WBC RBC Hgb Hct MCV MCH MCHC RDW Plt Count MPV Absolute Neuts (auto) Neutrophils % Lymphocytes % Monocytes % Eosinophils % Basophils % Retic Count 3.30 H D PT with INR INR Sodium Potassium Chloride Carbon Dioxide Anion Gap BUN Creatinine Est GFR (CKD-EPI)AfAm Est GFR (CKD-EPI)NonAf Random Glucose Calcium Total Bilirubin AST ALT Alkaline Phosphatase Total Protein Albumin Stool Occult Blood Positive Blood Type A POSITIVE Antibody Screen Negative Active Medications Generic Name Dose Route Start Last Admin Trade Name Freq PRN Reason Stop Dose Admin Potassium Chloride/Dextrose/Sod Cl 20 meq in 1,000 mls @ 100 mls/hr 01/11/20 17:30 D5-1/2ns+20 Meq Kcl - IV ASDIR [facility] Metoprolol Succinate 25 mg 01/12/20 10:00 Toprol Xl - PO DAILY [facility] Pantoprazole Sodium 40 mg 01/11/20 21:00 Protonix Iv IVPUSH Q12H [facility] ASSESSMENT/PLAN: 79 y/o F with hx of CHF, NIDDM, HTN, pericardial effusion, COPD (on 2LNC prn at home), thrombocytopenia presenting from [facility] ED for GI bleed with concern for hemodynamic instability BP 114/48 -> 80s/40s Neuro -alert and oriented -monitor mental status GI -bloody diarrhea+clots 2/2 upper vs lower GI bleed vs ?hx of hemorrhoids and thrombocytopenia -FOBT positive -protonix drip changed to protonix 40mg BID -GI consult Cardio -hx of HFpEF on metoprolol -BP 80s-110s/40s HR 90s -s/p 500cc bolus x2 -Echo (08/2019): EF 50-55% -maintain MAP>65 -hold off on home antiHTN Pulm -COPD on prn home O2 -currently satting 91-96% on RA; ambulatory to bathroom without SOB -will continue to monitor Heme -hx of thrombocytopenia; currently plt 71; Hb 10.9; BUN 46 -continue to monitor with daily CBC -hold all anti-platelet and AC therapy -will followup stat labs Renal -Cr stable -will followup stat labs Dispo: We will continue to follow the patient. Thank you for this consultative opportunity. Visit type - Emergency Visit Emergency Visit: Yes ED Registration Date: 01/11/20 Care time: The patient presented to the Emergency Department on the above date and was hospitalized for further evaluation of their emergent condition. - New Patient This patient is new to me today: Yes Date on this admission: 01/11/20 - Critical Care Critical Care patient: Yes Total Critical Care Time (in minutes): 40 Critical Care Statement: The care of this patient involved high complexity decision making to prevent further life threatening deterioration of the patient 's condition and/or to evaluate & treat vital organ system(s) failure or risk of failure. ATTENDING PHYSICIAN STATEMENT I saw and evaluated the patient. I reviewed the resident's note and discussed the case with the resident. I agree with the resident's findings and plan as documented. SUBJECTIVE: OBJECTIVE: ASSESSMENT AND PLAN:
[2020-01-11 21:40] LABS: HEMATOCRIT 31.4 % (32.4-45.2); HEMOGLOBIN 10.4 GM/dL (10.7-15.3); MCH 33.1 pg (25.7-33.7); MCHC 33.1 g/dl (32.0-36.0); MEAN CELL VOLUME 99.9 fl (80-96); MEAN PLT VOLUME 7.2 fl (7.5-11.1); PLATELET COUNT 75 K/MM3 (134-434); RBC 3.15 M/mm3 (3.60-5.2); RDW 15.1 % (11.6-15.6); WHITE BLOOD COUNT 5.5 K/mm3 (4.0-10.0)
[2020-01-11 21:53] LABS: INR 1.22 (0.83-1.09); PROTHROMBIN TIME (PATIENT) 14.4 SEC (9.7-13.0)
[2020-01-11 22:19] LABS: BLOOD UREA NITROGEN 44.9 mg/dL (7-18); CALCIUM 8.3 mg/dL (8.5-10.1); CREATININE 1.1 mg/dL (0.55-1.3); MAGNESIUM 2.2 mg/dL (1.8-2.4); PHOSPHOROUS 4.5 mg/dL (2.5-4.9); POTASSIUM 3.9 mmol/L (3.5-5.1)
[2020-01-11] MEDS: D5-1/2NS+20 MEQ KCL - 20 MEQ/1,000 ML INFUS.BAG IV SCH (23:00)
[2020-01-11] MEDS: PANTOPRAZOLE SODIUM 40 MG VIAL IVPUSH SCH (23:10)
[2020-01-12 06:42] LABS: HEMATOCRIT 25.6 % (32.4-45.2); HEMOGLOBIN 8.9 GM/dL (10.7-15.3); MCH 34.2 pg (25.7-33.7); MCHC 34.7 g/dl (32.0-36.0); MEAN CELL VOLUME 98.7 fl (80-96); MEAN PLT VOLUME 7.1 fl (7.5-11.1); PLATELET COUNT 49 K/MM3 (134-434); RDW 15.1 % (11.6-15.6); WHITE BLOOD COUNT 2.9 K/mm3 (4.0-10.0)
[2020-01-12] MEDS ORDERED: AMIODARONE IN DEXTROSE,ISO-OSM 360 MG/200 ML BAG ONE (06:53)
[2020-01-12] MEDS ORDERED: RAPID SEQUENCE INTUBATION KIT NR ONE (06:53)
[2020-01-12 07:23] LABS: ALK PHOS 52 U/L (45-117); ANION GAP 6 MMOL/L (8-16); BILIRUBIN,TOTAL 0.7 mg/dL (0.2-1); CALCIUM 7.7 mg/dL (8.5-10.1); CHLORIDE 114 mmol/L (98-107); CO2 24 mmol/L (21-32); CREATININE 0.9 mg/dL (0.55-1.3); GLUCOSE,RANDOM 140 mg/dL (74-106); MAGNESIUM 2.1 mg/dL (1.8-2.4); POTASSIUM 4.1 mmol/L (3.5-5.1); SGOT/AST 18 U/L (15-37); SGPT/ALT 14 U/L (13-61); SODIUM 144 mmol/L (136-145); TOT PROT 5.7 g/dl (6.4-8.2)
--- NOTE | 2020-01-12 08:51 | CON.CARD ---
Consult Consult Specialty:: Cardiology Referred by:: Dr. Anderson Reason for Consultation:: Hypotension - History of Present Illness Chief Complaint: BRBPR History of Present Illness: 79 F with: Known chronic moderate pericardial effusion, no tamponade (-SAADIA/ESR/TSH, recent chest CT no mass) CAD s/p MN and prior cath (remote)- anatomy not amenable to revasc per her report Chronic COPD AAA of 4.5cm followed by Vascular Moderate DM Cirrhosis Chronic thrombocytopenia Admitted to ICU after 1-2 days of BRBPR. Relatively hypotensive initially, now improved. Alert, oriented in ICU in NSR. Denies CP, palps, edema, PND, orthopnea. 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 No: Alzheimer's Cardio/Vascular: Yes: CAD (had cardiac cath with a single completely occluded artery ( per patient)), HTN, Hyperlipdemia, MN, Other (AAA 4.4cm). 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 ?) Musculoskeletal: Yes: Osteoarthritis Endocrine: Yes: Diabetes Mellitus - Past Surgical History Past Surgical History: Yes: Appendectomy (during cholecystectomy ?), Carotid Endarterectomy (Left 2014), Cataract Removal, Cholecystectomy, Colonoscopy, Hernia Repair (Umbilical), Tonsillectomy, Upper Endoscopy - Alcohol/Substance Use Hx Alcohol Use: No History of Substance Use: reports: None - Smoking History Smoking history: Former smoker Have you smoked in the past 12 months: No If you are a former smoker, when did you quit?: 2001 - Social History Usual Living Arrangement: Alone ( 7 months ago) ADL: Independent 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 History of Recent Travel: No Home Medications - Allergies Allergies/Adverse Reactions: Allergies Allergy/AdvReac Type Severity Reaction Status Date / Time No Known Drug Allergies Allergy Verified 08/18/19 17:41 - Home Medications Home Medications: Ambulatory Orders Ezetimibe 10 mg PO DAILY 01/11/20 Furosemide 40 mg PO DAILY 01/11/20 Metoprolol Succinate 25 mg PO DAILY 01/11/20 Potassium Chloride 20 meq PO DAILY 01/11/20 Pregabalin [Lyrica] 100 mg PO DAILY 01/11/20 Simvastatin [Zocor] 20 mg PO HS 01/11/20 Vitamin B12 1 tab PO DAILY 01/11/20 Family Medical History Family History: Unremarkable (not pertinent to this presentation. ) Review of Systems - Review of Systems Constitutional: reports: No Symptoms Eyes: reports: No Symptoms HENT: reports: No Symptoms Neck: reports: No Symptoms Cardiovascular: reports: Shortness of Breath (chronic.) Respiratory: reports: SOB on Exertion (chronic) Gastrointestinal: reports: Other (BRBPR) Genitourinary: denies: No Symptoms, Burning, Discharge, Dysuria, Flank Pain, Frequency, Hematuria, Incontinence, Lesions, Menses, Pain, Testicular Mass, Testicular Pain, Testicular Swelling, Urgency, Vaginal Bleeding, Other Breasts: denies: No Symptoms Reported, See HPI, Breast Implants, Discharge from Nipple, Lumps, Pain, Skin Changes, Other Musculoskeletal: denies: No Symptoms, Back Pain, Crepitus, Decreased ROM, Extremity Pain, Joint Pain, Joint Swelling, Muscle Pain, Muscle Cramps, Muscle Weakness, Other Integumentary: denies: No Symptoms, Blister, Bruising, Change in Color, Eczema, Erythema, Incision, Lesions, Lump, Pallor, Pruritis, Rash, Wound, Other Neurological: denies: No Symptoms, Change in LOC, Change in Speech, Confusion, Dizziness, Headache, Incoordination, Numbness, Parasthesia, Pre-Existing Deficit , Seizure, Syncope, Tremors, Unsteady Gait, Weakness, Other Endocrine: denies: No Symptoms, Excessive Sweating, Flushing, Increased Hunger, Increased Thirst, Intolerance to Cold, Intolerance to Heat, Unexplained Weight Gain, Unexplained Weight Loss, Other Hematology/Lymphatic: denies: No Symptoms, Easily Bruised, Excessive Bleeding, Swollen Glands, Other Psychiatric: denies: No Symptoms, Altered Sleep Pattern, Anxiety, Depression, Hallucinations, Panic, Paranoia, Suicidal, Other - Risk Factors Known Risk Factors: Yes: Diabetes Mellitus, Hypercholesterolemia, Smoking, Other (Known CAD) Vital Signs: Vital Signs Temperature 98.2 F 01/12/20 02:00 Pulse Rate 92 H 01/12/20 05:00 Respiratory Rate 30 H 01/12/20 05:00 Blood Pressure 109/57 L 01/12/20 05:00 O2 Sat by Pulse Oximetry (%) 96 01/11/20 22:32 Constitutional: Yes: No Distress, Calm Respiratory: Yes: CTA Bilaterally, Other (chronically decereased breath sounds , no active wheezing) Gastrointestinal: Yes: Soft (nontender, no reound or guarding) Cardiovascular: Yes: Regular Rate and Rhythm JVD: No Carotid Bruit: No Heart Sounds: Yes: S1, S2 Murmur: Yes: Systolic Murmur (2/6 JOSE RSB c/w ) Edema: No Neurological: Yes: Alert, Oriented - Other Data Labs, Other Data: CBC, BMP 01/12/20 06:08 01/12/20 06:08 INR, PTT INR 1.22 (0.83-1.09) H 01/11/20 21:30 Troponin, BNP 01/12/20 06:08 Troponin I < 0.02 Troponin, BNP 01/12/20 06:08 Troponin I < 0.02 Laboratory Tests 01/11/20 14:53 Stool Occult Blood Positive Echo: Report Reviewed Prior Cardiac Procedures: Cardiac Catheterization Ejection Fraction %: LVEF > or = 40 % Imaging - Results EKG: Image Reviewed (NSR, sinus arrhythmia , RBBB, Cannot r/o old inferior/ lateral MN) Assessment/Plan IMP: Acute GI bleed Relative hypotension in setting of above- not requiring pressors Known chronic moderate pericardial effusion, no tamponade (-SAADIA/ESR/TSH, recent chest CT no mass)-- followed closely and unchanged CAD s/p MN and prior cath (remote)- anatomy not amenable to revasc Chronic COPD AAA of 4.5cm followed by Vascular (Sandra) Moderate Moderate to severe chronic PHTN secondary to COPD DM Cirrhosis Chronic thrombocytopenia REC: 1. GIB: -Hold ASA -Follow H/H, transfuse to maintain Hb > 8 -Protonix -GI evaluation -ICU monitoring. -She would be considered high risk for endoscopy due to CAD/COPD/PHTN/Moderate . There are presently no absolute cardiac contraindications. 2. Hypotension: not requiring pressors or transfusion to this point. -IV access/ follow H/H -Hydration -Hold Lasix 3. Moderate pericardial effusion: chronic, stable, moderate. -We have reviewed all studies here and in office since approx June 2019 and the effusion is moderate and unchanged without tamponade. -It was reviewed with CT surgery (Liu) and Interventional Cards (Robina) at [facility] and it is not amenable to needle drainage. -She would need to have a window for diagnostic purposes (not for hemodynamic reasons) and she declined that- would be at higher risk due to her chronic low platelets. -Suspect the relative hypotension now due to GIB and not the effusion although prudent to repeat echo 4. CAD: chronic, stable -Hold ASA in this setting. -Can use Low dose Beta gunnar cautiously while in ICU 5. COPD: chronic, stable. Supp O2 as needed 6. AAA: followed by Dr. Flores. 4.5-5cm. Not yet of surgical size. 7. Moderate : asx, serial echo f/u 8. PHTN: moderate to severe secondary to COPD, no specific Rx indicated other than supp O2 and optimization of COPD regimen 9. DM: as per PMD 10. Cirrhosis: thought to be etiology of thrombocytopenia 11. Thrombocytopenia: as above, Heme evaluation. Transfuse as needed for GIB 45 minutes spent exam/review data and tele/ formulating plan of care
--- NOTE | 2020-01-12 09:25 | HP ---
Admitting History and Physical - Primary Care Physician PCP: Storm Nelson - Admission Chief Complaint: BRIGHT RED BLOOD PER RECTUME/AND DARK STOOLS History of Present Illness: 79 Y/O FEMALE, PMHX COPD, PERICARDIAL AND PLEURAL EFFUSIONS IN THE PAST, HTN, LIPIDEMIA, OA, PERIPHERAL NEUROPATHY, UNSTEADY GAIT HERE WITH RECTAL BLEED. PATIENT REPORTS SEEING BRIGHT RED BLOOD PER RECTUM AFTER A BOWEL MOVEMENT, THEN MULTIPLE DARK TARRY STOOLS. DENIES FALL, FEVER, RECENT TRAVEL, DRINK 3 CUPS OF TEA DAILY. 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 No: Alzheimer's Cardiovascular: Yes: CAD (had cardiac cath with a single completely occluded artery ( per patient)), HTN, Hyperlipdemia, AR, Other (AAA 4.4cm). 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, right colon angiodysplasia was also found), Hemorrhoids Hepatobiliary: Yes: Cirrhosis (likely due to ARM ?) Heme/Onc: Yes: Anemia, Thrombocytopenia Musculoskeletal: Yes: Osteoarthritis Endocrine: Yes: Diabetes Mellitus - Past Surgical History Past Surgical History: Yes: Appendectomy (during cholecystectomy ?), Carotid Endarterectomy (Left 2014), Cataract Removal, Cholecystectomy, Colonoscopy, Hernia Repair (Umbilical), Tonsillectomy, Upper Endoscopy - Smoking History Smoking history: Former smoker Have you smoked in the past 12 months: No If you are a former smoker, when did you quit?: 2001 - Alcohol/Substance Use Hx Alcohol Use: No History of Substance Use: reports: None - Social History ADL: Independent 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 History of Recent Travel: No Home Medications - Allergies Allergies/Adverse Reactions: Allergies Allergy/AdvReac Type Severity Reaction Status Date / Time No Known Drug Allergies Allergy Verified 08/18/19 17:41 - Home Medications Home Medications: Ambulatory Orders Ezetimibe 10 mg PO DAILY 01/11/20 Furosemide 40 mg PO DAILY 01/11/20 Metoprolol Succinate 25 mg PO DAILY 01/11/20 Potassium Chloride 20 meq PO DAILY 01/11/20 Pregabalin [Lyrica] 100 mg PO DAILY 01/11/20 Simvastatin [Zocor] 20 mg PO HS 01/11/20 Vitamin B12 1 tab PO DAILY 01/11/20 Review of Systems - Review of Systems Constitutional: reports: Weakness Eyes: reports: No Symptoms HENT: reports: No Symptoms Neck: reports: No Symptoms Cardiovascular: reports: No Symptoms Respiratory: reports: No Symptoms Gastrointestinal: reports: Rectal Bleeding Genitourinary: reports: No Symptoms Musculoskeletal: reports: No Symptoms, Muscle Weakness Integumentary: reports: No Symptoms Neurological: reports: Pre-Existing Deficit Endocrine: reports: No Symptoms Hematology/Lymphatic: reports: No Symptoms Psychiatric: reports: No Symptoms Physical Examination Vital Signs: Vital Signs Temperature 98.2 F 01/12/20 02:00 Pulse Rate 92 H 01/12/20 05:00 Respiratory Rate 30 H 01/12/20 05:00 Blood Pressure 109/57 L 01/12/20 05:00 O2 Sat by Pulse Oximetry (%) 96 01/11/20 22:32 Constitutional: Yes: No Distress HENT: Yes: WNL Neck: Yes: WNL Cardiovascular: Yes: Regular Rate and Rhythm Respiratory: Yes: CTA Bilaterally Gastrointestinal: Yes: Soft Renal/: Yes: WNL Musculoskeletal: Yes: Muscle Weakness Edema: No Peripheral Pulses WNL: Yes Integumentary: Yes: Other Neurological: Yes: Pre-Existing Deficit, Unsteady Gait ...Motor Strength: LLE, RLE Psychiatric: Yes: WNL Labs: CBC, BMP 01/12/20 06:08 01/12/20 06:08 Problem List - Problems (1) GI bleed Code(s): K92.2 - GASTROINTESTINAL HEMORRHAGE, UNSPECIFIED Qualifiers: GI bleed type/associated pathology: unspecified gastrointestinal hemorrhage type Qualified Code(s): K92.2 - Gastrointestinal hemorrhage, unspecified (2) Anemia due to blood loss, acute Code(s): D62 - ACUTE POSTHEMORRHAGIC ANEMIA (3) Aneurysm of infrarenal abdominal aorta Code(s): I71.4 - ABDOMINAL AORTIC ANEURYSM, WITHOUT RUPTURE (4) CHF (congestive heart failure) Code(s): I50.9 - HEART FAILURE, UNSPECIFIED (5) Guaiac + stool Code(s): R19.5 - OTHER FECAL ABNORMALITIES (6) HTN (hypertension) Code(s): I10 - ESSENTIAL (PRIMARY) HYPERTENSION Qualifiers: Hypertension type: essential hypertension Qualified Code(s): I10 - Essential (primary) hypertension Assessment/Plan REPEAT H/H IS LOER I ORDERED ANOTHER CBC FOR 12PM TODAY NPO EXCEPT MEDS IV FLUIDS PPI IV PROTONIX BID HOLD DVT PROPHYLAXIS WITH GI BLEED GI EVAL REQUESTED, I DOUBT SHE WILL NEED A COLONOSCOPY POSSIBLY EGD AND I HAVE NO OBJECTION FOR AN EGD. mEDICALLY CLEARED IF EGD IS NEEDED.
[2020-01-12] MEDS ORDERED: ACETAMINOPHEN 500 MG TABLET (FP) PO PRN (09:30)
[2020-01-12] MEDS: PANTOPRAZOLE SODIUM 40 MG VIAL IVPUSH SCH ×2 (09:32→21:01)
--- NOTE | 2020-01-12 09:56 | PN ---
Physical Exam: SUBJECTIVE: Patient seen and examined FABIOLA Denies overnight episodes of melena, hematochezia. Denies weakness, fatigue OBJECTIVE: Vital Signs Period Temp Pulse Resp BP Sys/Rider Pulse Ox Last 24 Hr 98.0 F-98.2 F 79-95 19-30 82-114/46-69 95-98 GENERAL: Awake, alert, and fully oriented, in no acute distress. HEAD: NC/AT EYES: conjunctiva clear, and w/o pallor. No lid lag. EARS, NOSE, THROAT: Ears normal, nares patent. Moist mucous membranes. NECK: Normal range of motion, supple without lymphadenopathy, JVD, or masses. LUNGS: Breath sounds equal, clear to auscultation bilaterally. No wheezes, and no crackles. No accessory muscle use. Breathing RA HEART: Regular rate and rhythm, normal S1 and S2, +systolic murmur ABDOMEN: Soft, nontender, not distended, normoactive bowel sounds, no guarding, no rebound. RECTAL: excessive external mucosal folds, no palpable internal hemorrhoids, dark red-black stool on GURJIT MUSCULOSKELETAL: Normal range of motion at all joints. No bony deformities or tenderness. No CVA tenderness. LOWER EXTREMITIES: 2+ pulses, warm, well-perfused. No calf tenderness. No peripheral edema. NEUROLOGICAL: Normal speech. SKIN: Warm, dry, normal turgor, no rashes or lesions noted. Laboratory Results - last 24 hr 01/11/20 01/11/20 01/11/20 14:18 14:18 14:18 WBC 5.4 RBC 3.18 L Hgb 10.9 Hct 31.9 L MCV 100.3 H MCH 34.3 H MCHC 34.1 RDW 14.9 Plt Count 71 L MPV 7.1 L Absolute Neuts (auto) 3.8 Neutrophils % 71.7 Lymphocytes % 15.8 Monocytes % 10.4 H Eosinophils % 1.4 Basophils % 0.7 Retic Count PT with INR 14.6 H INR 1.31 H Sodium 134 L Potassium 4.5 Chloride 106 Carbon Dioxide 22 Anion Gap 6 L BUN 46.0 H Creatinine 1.1 Est GFR (CKD-EPI)AfAm 54.91 Est GFR (CKD-EPI)NonAf 47.38 Random Glucose 133 H Calcium 8.3 L Phosphorus Magnesium Iron TIBC Iron Saturation Unsaturated IBC Ferritin Total Bilirubin 1.2 H AST 23 ALT 12 L Alkaline Phosphatase 48 Creatine Kinase Troponin I Total Protein 6.4 Albumin 3.7 Stool Occult Blood Blood Type Antibody Screen 01/11/20 01/11/20 01/11/20 14:18 14:18 14:18 WBC RBC Hgb Hct MCV MCH MCHC RDW Plt Count MPV Absolute Neuts (auto) Neutrophils % Lymphocytes % Monocytes % Eosinophils % Basophils % Retic Count 3.30 H D PT with INR INR Sodium Potassium Chloride Carbon Dioxide Anion Gap BUN Creatinine Est GFR (CKD-EPI)AfAm Est GFR (CKD-EPI)NonAf Random Glucose Calcium Phosphorus Magnesium Iron 68 TIBC 352 Iron Saturation 19 Unsaturated IBC 284 H Ferritin Total Bilirubin AST ALT Alkaline Phosphatase Creatine Kinase Troponin I Total Protein Albumin Stool Occult Blood Blood Type A POSITIVE Antibody Screen Negative 01/11/20 01/11/20 01/11/20 14:18 14:53 21:30 WBC 5.5 RBC 3.15 L Hgb 10.4 L Hct 31.4 L D MCV 99.9 H MCH 33.1 MCHC 33.1 RDW 15.1 D Plt Count 75 L D MPV 7.2 L Absolute Neuts (auto) Neutrophils % Lymphocytes % Monocytes % Eosinophils % Basophils % Retic Count PT with INR INR Sodium Potassium Chloride Carbon Dioxide Anion Gap BUN Creatinine Est GFR (CKD-EPI)AfAm Est GFR (CKD-EPI)NonAf Random Glucose Calcium Phosphorus Magnesium Iron TIBC Iron Saturation Unsaturated IBC Ferritin 83.5 Total Bilirubin AST ALT Alkaline Phosphatase Creatine Kinase Troponin I Total Protein Albumin Stool Occult Blood Positive Blood Type Antibody Screen 01/11/20 01/11/20 01/12/20 21:30 21:30 06:08 WBC 2.9 L RBC 2.60 L Hgb 8.9 L Hct 25.6 L D MCV 98.7 H MCH 34.2 H MCHC 34.7 RDW 15.1 Plt Count 49 L D MPV 7.1 L Absolute Neuts (auto) Neutrophils % Lymphocytes % Monocytes % Eosinophils % Basophils % Retic Count PT with INR 14.40 H INR 1.22 H Sodium 140 Potassium 3.9 Chloride 109 H Carbon Dioxide 27 Anion Gap 5 L BUN 44.9 H Creatinine 1.1 Est GFR (CKD-EPI)AfAm 54.91 Est GFR (CKD-EPI)NonAf 47.38 Random Glucose 125 H Calcium 8.3 L Phosphorus 4.5 Magnesium 2.2 Iron TIBC Iron Saturation Unsaturated IBC Ferritin Total Bilirubin AST ALT Alkaline Phosphatase Creatine Kinase Troponin I Total Protein Albumin Stool Occult Blood Blood Type Antibody Screen 01/12/20 06:08 WBC RBC Hgb Hct MCV MCH MCHC RDW Plt Count MPV Absolute Neuts (auto) Neutrophils % Lymphocytes % Monocytes % Eosinophils % Basophils % Retic Count PT with INR INR Sodium 144 Potassium 4.1 Chloride 114 H Carbon Dioxide 24 Anion Gap 6 L BUN 40.0 H Creatinine 0.9 Est GFR (CKD-EPI)AfAm 69.99 Est GFR (CKD-EPI)NonAf 60.39 Random Glucose 140 H Calcium 7.7 L Phosphorus Magnesium 2.1 Iron TIBC Iron Saturation Unsaturated IBC Ferritin Total Bilirubin 0.7 AST 18 ALT 14 Alkaline Phosphatase 52 Creatine Kinase 23 L Troponin I < 0.02 Total Protein 5.7 L Albumin 3.0 L Stool Occult Blood Blood Type Antibody Screen Active Medications Generic Name Dose Route Start Last Admin Trade Name Freq PRN Reason Stop Dose Admin Acetaminophen 500 mg 01/12/20 09:30 Tylenol - PO DAILY PRN HEADACHE Potassium Chloride/Dextrose/Sod Cl 20 meq in 1,000 mls @ 100 mls/hr 01/11/20 17:30 01/11/20 23:00 D5-1/2ns+20 Meq Kcl - IV 100 mls/hr ASDIR KRIS Administration Metoprolol Succinate 25 mg 01/12/20 10:00 Toprol Xl - PO DAILY KRIS Pantoprazole Sodium 40 mg 01/11/20 22:00 01/12/20 09:32 Protonix Iv IVPUSH 40 mg BID KRIS Administration ASSESSMENT/PLAN: 79 y/o F with hx of CHF, NIDDM, HTN, pericardial effusion, COPD (on 2LNC prn at home), thrombocytopenia presenting from [facility] for GI bleed with concern for hemodynamic instability BP 114/48 -> 80s/40s. Normotensive while at [facility] -alert and oriented -monitor mental status GI # bloody diarrhea+clots 2/2 upper vs lower GI bleed vs ?hx of hemorrhoids and thrombocytopenia # chronic gastric and duodenal polyps # h/o Duodenal Dieulafoy lesion # h/o sigmoid diverticulosis > [facility] duodenal Dieulafory lesion w/ active bleed; s/p epinephrine injection > [facility] duodenal Dieulafoy lesion w/ active bleed; s/p epinephrine injection > EGD([facility], 03/12/19): pedunculated and sessile polyps, sessile duodenal polyps > FOBT positive -protonix drip changed to protonix 40mg BID -GI(DiGiorno) consult: --platelet goal >50k, transfuse platelets PRN --Hgb goal >8 --CLD --possible EGD/Colonoscopy but patient is still deciding --Heme consult Cardio # hypotension --hypotensive at [facility], but has had MAPs >80 while at [facility] [place] # HFpEF --not in acute excerbation # Chronic Moderate Pericardial Effusion --not affect hemodynamics # infrarenal AAA -s/p 500cc bolus x2 > US Aorta(07/14/19): 4.7cm fusiform infrarenal aortic aneurysm > Echo (08/20/2019): mild LVH, EF 50-55%, mod , mod TR, mild-mo MR, PASP ~ 45mmHg; large pericardial effusion -maintain MAP>65 > US RUQ(03/13/18): hepatomegaly w/ mild fatty infiltration, 7mm echogenic lesion of Left Hepatic lobe > CT A/P(08/01/17): hepatic surface irreg indiciative of cirrhoisis -hold off on home antiHTN -okay for lasix 40mg tomorrow for Pericardial Effusion -Cardio consult: --pericardial effusion is stable and not affect hemodynamics --CT-Surg(Stalinastri) and Intervent-Card(Robina) deemed pt not amenable for pericardiacentesis --okay for BB -Vascular(Sandra) as outpt for monitoring AAA Pulm # COPD -supplemental home O2 -currently satting 91-96% on RA; ambulatory to bathroom without SOB -will continue to monitor Heme # chronic thrombocytopenia > Plt: 71, 75, 49, 66 > -s/p platelets x1 -continue to monitor with daily CBC -hold all anti-platelet and AC therapy -Heme(Vida) consult: thrombocytopneia likely 2/2 cirrhosis w/ splenomegaly --daily PTT, fibrinogen --keep platelets >50 Renal -Cr stable -will followup stat labs FEN -D5 1/2NS +K -CLD Dispo: We will continue to follow the patient. Thank you for this consultative opportunity. Visit type - Emergency Visit Emergency Visit: No - New Patient This patient is new to me today: Yes Date on this admission: 01/12/20 - Critical Care Critical Care patient: Yes Total Critical Care Time (in minutes): 36 Critical Care Statement: The care of this patient involved high complexity decision making to prevent further life threatening deterioration of the patient 's condition and/or to evaluate & treat vital organ system(s) failure or risk of failure. ATTENDING PHYSICIAN STATEMENT I saw and evaluated the patient. I reviewed the resident's note and discussed the case with the resident. I agree with the resident's findings and plan as documented. SUBJECTIVE: OBJECTIVE: ASSESSMENT AND PLAN:
--- NOTE | 2020-01-12 10:01 | CON.GI ---
Consult Consult Specialty:: GI Referred by:: Dr. Nelson Reason for Consultation:: GI bleed - History of Present Illness Chief Complaint: Rectal bleed History of Present Illness: 79F admitted for evaluation of rectal bleeding. She states that it started morning and she felt that it may have been from beats and tomatoes she had eaten the night before. She has taken ASA recently for joint pain. She has a history of chronic anemia as well as thrombocytopenia. She had upper endoscopy performed by Dr. 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 She was relatively hypotensive on admission. She had EGD in 05/30 and 07/[address] 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 She had a colonoscopy in [address] Reinoso that revealed an ascending colon AVM. She also has diverticulosis. 1 U PRBC has been ordered. She denies gross rectal bleeding or melena. She had an echocardiogram in 06/01 that revealed a large pericardial effusion. There is a diagnosis of cirrnosis in the chart, however the patient is unaware of this diagnosis. She was evaluated by cardiology and feels that she is high risk for procedures. She describes passing a scant amount of blood this morning. - History Source History Provided By: Patient, Medical Record - Past Medical History IMPLEMENTATION DIRECTOR: Yes: Vertigo. No: Alzheimer's Cardio/Vascular: Yes: CAD (had cardiac cath with a single completely occluded artery ( per patient)), HTN, Hyperlipdemia, [place], Other (AAA 4.4cm). 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 ?) Musculoskeletal: Yes: Osteoarthritis Endocrine: Yes: Diabetes Mellitus - Past Surgical History Past Surgical History: Yes: Appendectomy (during cholecystectomy ?), Carotid Endarterectomy (Left 2013), Cataract Removal, Cholecystectomy, Colonoscopy, Hernia Repair (Umbilical), Tonsillectomy, Upper Endoscopy - Alcohol/Substance Use Hx Alcohol Use: No History of Substance Use: reports: None - Smoking History Smoking history: Former smoker Have you smoked in the past 12 months: No If you are a former smoker, when did you quit?: 2001 - Social History Usual Living Arrangement: Alone ( 7 months ago) ADL: Independent 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 History of Recent Travel: No Home Medications - Allergies Allergies/Adverse Reactions: Allergies Allergy/AdvReac Type Severity Reaction Status Date / Time No Known Drug Allergies Allergy Verified 08/18/19 17:41 - Home Medications Home Medications: Ambulatory Orders Ezetimibe 10 mg PO DAILY 01/11/20 Furosemide 40 mg PO DAILY 01/11/20 Metoprolol Succinate 25 mg PO DAILY 01/11/20 Potassium Chloride 20 meq PO DAILY 01/11/20 Pregabalin [Lyrica] 100 mg PO DAILY 01/11/20 Simvastatin [Zocor] 20 mg PO HS 01/11/20 Vitamin B12 1 tab PO DAILY 01/11/20 Family Medical History Other Family History: Father (: 80's: asbestos related lung cancer),. Mother ( in her 80s "old age". h/o anemia),. Brother (1, secondary to obseity complications). Sister (1, : COPD complications), Son (1, healthy) . No family history of colorectal cancer Review of Systems - Review of Systems Cardiovascular: denies: Chest Pain Respiratory: denies: SOB Gastrointestinal: reports: Rectal Bleeding. denies: Abdominal Pain Physical Exam-GI Vital Signs: Vital Signs Temperature 98.2 F 01/12/20 02:00 Pulse Rate 90 01/12/20 08:00 Respiratory Rate 28 H 01/12/20 08:00 Blood Pressure 90/69 01/12/20 08:00 O2 Sat by Pulse Oximetry (%) 96 01/11/20 22:32 Constitutional: Yes: Calm Eyes: No: Sclera Icterus Cardiovascular: Yes: Tachycardia Respiratory: Yes: CTA Bilaterally ...Auscultate: Yes: Normoactive Bowel Sounds ...Palpate: No: Hepatomegaly, Splenomegaly, Tenderness Edema: No (No LE edema) Neurological: Yes: Alert Labs: CBC, BMP 01/12/20 06:08 01/12/20 06:08 INR, PTT INR 1.22 (0.83-1.09) H 01/11/20 21:30 Problem List - Problems (1) GI bleed Assessment/Plan: Rectal bleeding intermittently since +/- dark bowel movements. [place] pancytopenic with platelets <50K. To further evaluate her bleeding, we discussed EGD/Colonoscopy with Ms. Becker. Discussed potential risks of the procedures like but not limited to bleeding, perforation requiring surgery to repair, infection, sedation medication effects all of which could be potentially life threatening. I did explain that she was deemed high risk from a cardiac standpoint given her other comorbidities. She asked if there was risk of from procedures. I explained that there is a potantial risk of from complications. She stated that she has to think about these options and had not consented as of yet. Advise: Optimization from hematologic standpoint. Keep Platelets >50K (advised nurse to give the unit of single donor platelets that were ordered yesterday). Hematology evaluation Keep Hgb >8 in setting of cardiovascular disease Clear liquids Continued monitored care If significant over bleeding, obtain CTA to help localize bleeding source Code(s): K92.2 - GASTROINTESTINAL HEMORRHAGE, UNSPECIFIED Qualifiers: GI bleed type/associated pathology: unspecified gastrointestinal hemorrhage type Qualified Code(s): K92.2 - Gastrointestinal hemorrhage, unspecified
--- NOTE | 2020-01-12 10:14 | PN ---
Teaching Attending Note Name of Resident: Dhirajreza Urenaung ATTENDING PHYSICIAN STATEMENT I saw and evaluated the patient. I reviewed the resident's note and discussed the case with the resident. I agree with the resident's findings and plan as documented. SUBJECTIVE: Patient seen and examined in the ICU. Awake and alert. No CP or SOB. No active bleeding overnight. Hemodynamics stable. Intake & Output 01/09/20 01/10/20 01/11/20 01/12/20 23:59 23:59 23:59 23:59 Intake Total 350 Output Total 700 Balance -350 Weight 167 lb Last Vital Signs Temp Pulse Resp BP Pulse Ox 98.2 F 90 22 H 90/69 96 01/12/20 02:00 01/12/20 08:00 01/12/20 09:00 01/12/20 08:00 01/12/20 09:00 Active Medications Acetaminophen (Tylenol -) 500 mg PO DAILY PRN PRN Reason: HEADACHE Potassium Chloride/Dextrose/Sod Cl (D5-1/2ns+20 Meq Kcl -) 20 meq in 1,000 mls @ 100 mls/hr IV ASDIR [facility] Last Admin: 01/11/20 23:00 Dose: 100 mls/hr Metoprolol Succinate (Toprol Xl -) 25 mg PO DAILY [facility] Pantoprazole Sodium (Protonix Iv) 40 mg IVPUSH BID [facility] Last Admin: 01/12/20 09:32 Dose: 40 mg GENERAL: Awake, alert, and fully oriented, in no acute distress. HEAD: Normal with no signs of trauma. EYES: Pupils equal, round and reactive to light, extraocular movements intact, sclera anicteric, conjunctiva clear. No lid lag. EARS, NOSE, THROAT: Ears normal, nares patent, oropharynx clear without exudates. Moist mucous membranes. NECK: Normal range of motion, supple without lymphadenopathy, JVD, or masses. LUNGS: Breath sounds equal, clear to auscultation bilaterally. No wheezes, and no crackles. No accessory muscle use. HEART: Regular rate and rhythm, normal S1 and S2, ABDOMEN: Soft, nontender, not distended, normoactive bowel sounds, no guarding, no rebound, no masses. No hepatomegaly or splenomegaly. MUSCULOSKELETAL: Normal range of motion at all joints. No bony deformities or tenderness. No CVA tenderness. LOWER EXTREMITIES: 2+ pulses, warm, well-perfused. No calf tenderness. No peripheral edema. NEUROLOGICAL: Non-focal PSYCHIATRIC: Cooperative. Good eye contact. Appropriate mood and affect. SKIN: Warm, dry, normal turgor, no rashes or lesions noted. Laboratory Results - last 24 hr 01/11/20 01/11/20 01/11/20 14:18 14:18 14:18 WBC 5.4 RBC 3.18 L Hgb 10.9 Hct 31.9 L MCV 100.3 H MCH 34.3 H MCHC 34.1 RDW 14.9 Plt Count 71 L MPV 7.1 L Absolute Neuts (auto) 3.8 Neutrophils % 71.7 Lymphocytes % 15.8 Monocytes % 10.4 H Eosinophils % 1.4 Basophils % 0.7 Retic Count PT with INR 14.6 H INR 1.31 H Sodium 134 L Potassium 4.5 Chloride 106 Carbon Dioxide 22 Anion Gap 6 L BUN 46.0 H Creatinine 1.1 Est GFR (CKD-EPI)AfAm 54.91 Est GFR (CKD-EPI)NonAf 47.38 Random Glucose 133 H Calcium 8.3 L Total Bilirubin 1.2 H AST 23 ALT 12 L Alkaline Phosphatase 48 Total Protein 6.4 Albumin 3.7 Stool Occult Blood Blood Type Antibody Screen 01/11/20 01/11/20 01/11/20 14:18 14:18 14:53 WBC RBC Hgb Hct MCV MCH MCHC RDW Plt Count MPV Absolute Neuts (auto) Neutrophils % Lymphocytes % Monocytes % Eosinophils % Basophils % Retic Count 3.30 H D PT with INR INR Sodium Potassium Chloride Carbon Dioxide Anion Gap BUN Creatinine Est GFR (CKD-EPI)AfAm Est GFR (CKD-EPI)NonAf Random Glucose Calcium Total Bilirubin AST ALT Alkaline Phosphatase Total Protein Albumin Stool Occult Blood Positive Blood Type A POSITIVE Antibody Screen Negative ASSESSMENT/PLAN: GI bleed CHF NIDDM HTN History of pericardial effusion COPD on 2LNC PRN at home Thrombocytopenia IVF Normal transfusion thresholds O2 as needed BD TX PRN Monitor off systemic steroids Follow [facility] SCDs 4W / 4S monitoring Dr Marks
[2020-01-12] MEDS: metoPROLOL SUCCINATE 25 MG TAB.SR.24H (FP) PO SCH (12:35)
--- NOTE | 2020-01-12 13:16 | EKG ---
Test Reason : Blood Pressure : / mmHG Vent. Rate : 077 BPM Atrial Rate : 077 BPM P-R Int : 144 ms QRS Dur : 146 ms QT Int : 438 ms P-R-T Axes : 053 269 015 degrees QTc Int : 495 ms NORMAL SINUS RHYTHM WITH SINUS ARRHYTHMIA RIGHT BUNDLE BRANCH BLOCK POSSIBLE LATERAL INFARCT , AGE UNDETERMINED ABNORMAL ECG WHEN COMPARED WITH ECG OF 18-AUG-2019 18:26, NO SIGNIFICANT CHANGE WAS FOUND Confirmed by JIMMY GALVEZ MD ([id number]) on 01/12/2020 1:16:24 PM Referred By: MD FAIRCHILD Confirmed By:JIMMY GALVEZ MD
[2020-01-12 13:33] LABS: HEMATOCRIT 26.4 % (32.4-45.2); HEMOGLOBIN 8.9 GM/dL (10.7-15.3); MCH 33.7 pg (25.7-33.7); MCHC 33.7 g/dl (32.0-36.0); MEAN CELL VOLUME 99.9 fl (80-96); MEAN PLT VOLUME 7.3 fl (7.5-11.1); PLATELET COUNT 66 K/MM3 (134-434); RBC 2.65 M/mm3 (3.60-5.2); RDW 15.4 % (11.6-15.6); WHITE BLOOD COUNT 3.9 K/mm3 (4.0-10.0)
--- NOTE | 2020-01-12 14:19 | CONSULT ---
Consult Consult Specialty:: Hematology Referred by:: Dr. Anderson Reason for Consultation:: Thrombocytopenia - History of Present Illness Chief Complaint: rectal bleeding History of Present Illness: 79F with CHF, NIDDM, HTN, COPD (on 2LNC prn at home), hx PUD, chronic thrombocytopenia transferred yesterday from [place] ED for GI bleed with hypotension. Reports several episodes of melanotic stools yesterday, then turning into willian bloody diarrhea. Started on protonix ggt. GI consulted. Planned for c-scope and EGD. Reports taking two aspirin 81 mg 2 weeks ago. No other AC or anti-plt agents. Hgb 8.9 this morning from 10.4 yesterday afternoon (baseline ~11). WBC 2.9, plt 49 (baseline). Pt was previously evaluated by hematology on multiple occasions. Found to have cirrhosis with splenomegaly on imaging, ?etiology. Never drank etoh but was at some point >200 lb (?RAM). W/u was negative for nutritional deficiency and included normal FISH for MDS, negative SPEP, normal FLC ratio, HIV/HBV/HCV neg. Still having some rectal bleeding today. - Past Medical History INSPECTOR RECEIVING: Yes: Vertigo. No: Alzheimer's Cardio/Vascular: Yes: CAD (had cardiac cath with a single completely occluded artery ( per patient)), HTN, Hyperlipdemia, [place], Other (AAA 4.4cm). 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 ?) Musculoskeletal: Yes: Osteoarthritis Endocrine: Yes: Diabetes Mellitus - Past Surgical History Past Surgical History: Yes: Appendectomy (during cholecystectomy ?), Carotid Endarterectomy (Left 2014), Cataract Removal, Cholecystectomy, Colonoscopy, Hernia Repair (Umbilical), Tonsillectomy, Upper Endoscopy - Alcohol/Substance Use Hx Alcohol Use: No History of Substance Use: reports: None - Smoking History Smoking history: Former smoker Have you smoked in the past 12 months: No If you are a former smoker, when did you quit?: 2001 - Social History Usual Living Arrangement: Alone ( 7 months ago) ADL: Independent 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 History of Recent Travel: No Home Medications - Allergies Allergies/Adverse Reactions: Allergies Allergy/AdvReac Type Severity Reaction Status Date / Time No Known Drug Allergies Allergy Verified 08/18/19 17:41 - Home Medications Home Medications: Ambulatory Orders Ezetimibe 10 mg PO DAILY 01/11/20 Furosemide 40 mg PO DAILY 01/11/20 Metoprolol Succinate 25 mg PO DAILY 01/11/20 Potassium Chloride 20 meq PO DAILY 01/11/20 Pregabalin [Lyrica] 100 mg PO DAILY 01/11/20 Simvastatin [Zocor] 20 mg PO HS 01/11/20 Vitamin B12 1 tab PO DAILY 01/11/20 Review of Systems - Review of Systems Constitutional: reports: No Symptoms Cardiovascular: reports: No Symptoms Respiratory: reports: No Symptoms Gastrointestinal: reports: Abdominal Pain, Melena, Rectal Bleeding Integumentary: reports: No Symptoms Physical Exam Vital Signs: Vital Signs Temperature 98 F 01/12/20 10:00 Pulse Rate 90 01/12/20 12:00 Respiratory Rate 25 H 01/12/20 12:00 Blood Pressure 97/62 01/12/20 12:00 O2 Sat by Pulse Oximetry (%) 96 01/12/20 09:00 Constitutional: Yes: Well Nourished, No Distress, Calm Eyes: Yes: Conjunctiva Clear Cardiovascular: Yes: Regular Rate and Rhythm Respiratory: Yes: Regular, CTA Bilaterally Gastrointestinal: Yes: Soft. No: Distention, Palpable Mass, Tenderness Edema: No Labs: CBC, BMP 01/12/20 13:24 01/12/20 06:08 Assessment/Plan Chronic thrombocytopenia, leukopenia likely 2/2 cirrhosis with splenomegaly. Peripheral smear unremarkable. Please check PTT, fibrinogen. Transfuse MDP to >50 while actively bleeding.
[2020-01-12] MEDS ORDERED: ACETAMINOPHEN 325 MG TABLET (FP) PO PRN (19:47)
[2020-01-12] MEDS: D5-1/2NS+20 MEQ KCL - 20 MEQ/1,000 ML INFUS.BAG IV SCH (19:55)
[2020-01-12] MEDS ORDERED: LIDOCAINE 5% TOPICAL PATCH TP ONE (20:30)
[2020-01-12] MEDS: ACETAMINOPHEN 500 MG TABLET (FP) PO PRN (21:02)
[2020-01-13 06:51] LABS: HEMATOCRIT 23.2 % (32.4-45.2); HEMOGLOBIN 7.9 GM/dL (10.7-15.3); MCHC 34.2 g/dl (32.0-36.0); MEAN CELL VOLUME 99.5 fl (80-96); PLATELET COUNT 59 K/MM3 (134-434); RBC 2.33 M/mm3 (3.60-5.2); RDW 15.5 % (11.6-15.6); WHITE BLOOD COUNT 2.5 K/mm3 (4.0-10.0)
[2020-01-13 07:05] LABS: INR 1.18 (0.83-1.09); PROTHROMBIN TIME (PATIENT) 13.9 SEC (9.7-13.0)
--- NOTE | 2020-01-13 07:07 | PN ---
Progress Note, Physician Chief Complaint: AWAKE ALERT POSITIVE RBBPR OVERNIGHT X 2 EPISODES NO FEVER OR CHILLS DENIES CHEST PAIN OR SOB - Current Medication List Current Medications: Active Medications Acetaminophen (Tylenol -) 500 mg PO Q8H PRN PRN Reason: HEADACHE Last Admin: 01/12/20 21:02 Dose: 500 mg Furosemide (Lasix -) 40 mg PO DAILY [facility] Metoprolol Succinate (Toprol Xl -) 25 mg PO DAILY [facility] Last Admin: 01/12/20 12:35 Dose: Not Given Miscellaneous (Lidoderm Patch Removal) 1 each MC DAILY@0830 [facility] Stop: 01/13/20 08:31 Pantoprazole Sodium (Protonix Iv) 40 mg IVPUSH BID [facility] Last Admin: 01/12/20 21:01 Dose: 40 mg - Objective Vital Signs: Vital Signs Temperature 98 F 01/13/20 06:00 Pulse Rate 96 H 01/13/20 06:00 Respiratory Rate 23 H 01/13/20 06:00 Blood Pressure 107/58 L 01/13/20 06:00 O2 Sat by Pulse Oximetry (%) 96 01/12/20 21:00 Constitutional: Yes: Mild Distress Cardiovascular: Yes: Pulse Irregular Respiratory: Yes: CTA Bilaterally Gastrointestinal: Yes: Soft Musculoskeletal: Yes: Muscle Weakness Edema: Yes Edema: LLE: Trace, RLE: Trace Integumentary: Yes: WNL Wound/Incision: Yes: Clean/Dry Neurological: Yes: WNL ...Motor Strength: WNL Psychiatric: Yes: WNL Labs: INR, PTT INR 1.18 (0.83-1.09) H 01/13/20 06:15 Problem List - Problems (1) GI bleed Code(s): K92.2 - GASTROINTESTINAL HEMORRHAGE, UNSPECIFIED Qualifiers: GI bleed type/associated pathology: unspecified gastrointestinal hemorrhage type Qualified Code(s): K92.2 - Gastrointestinal hemorrhage, unspecified (2) Anemia due to blood loss, acute Code(s): D62 - ACUTE POSTHEMORRHAGIC ANEMIA (3) Aneurysm of infrarenal abdominal aorta Code(s): I71.4 - ABDOMINAL AORTIC ANEURYSM, WITHOUT RUPTURE (4) CHF (congestive heart failure) Code(s): I50.9 - HEART FAILURE, UNSPECIFIED (5) Guaiac + stool Code(s): R19.5 - OTHER FECAL ABNORMALITIES (6) HTN (hypertension) Code(s): I10 - ESSENTIAL (PRIMARY) HYPERTENSION Qualifiers: Hypertension type: essential hypertension Qualified Code(s): I10 - Essential (primary) hypertension Assessment/Plan DISCUSSED WITH GI/CARDIOLOGY ALTHOUGH THERE ARE OBVIOUS CARDIAC RISKS THE EGD/COLONOSCOPY HAVE BEEN DONE WITHOUT ANY COMPLICATIONS HERE AT [facility] IN THE PAST. PATIENT IS MEDICALLY CLEARED FOR COLONOSCOPY I WILL D/W CARDIOLOGY DR GALVEZ AND GI DR AARON PAREDES. PRBC TRANSFUSION 2 UNITS WITH LASIX IV 40MG IN BETWEEN UNITS. DVT PROPHYLAXIS STDS AVOID HEPARIN OR LOVENOX FOR PROPHYLAXIS WITH GI BLEED. PPI IV PROTONIX
[2020-01-13 07:08] LABS: ACTIVATED PTT 37.7 SECONDS (25.2-36.5)
[2020-01-13 07:38] LABS: BLOOD UREA NITROGEN 32.9 mg/dL (7-18); CALCIUM 8.1 mg/dL (8.5-10.1); CREATININE 0.9 mg/dL (0.55-1.3); MAGNESIUM 2.2 mg/dL (1.8-2.4); PHOSPHOROUS 3.6 mg/dL (2.5-4.9); POTASSIUM 3.9 mmol/L (3.5-5.1)
--- NOTE | 2020-01-13 07:39 | PN ---
Progress Note, Physician Chief Complaint: No CP, SOB, dizziness TELE: NSR Received 1 unit platelets. History of Present Illness: GI bleed - Current Medication List Current Medications: Active Medications Acetaminophen (Tylenol -) 500 mg PO Q8H PRN PRN Reason: HEADACHE Last Admin: 01/12/20 21:02 Dose: 500 mg Furosemide (Lasix -) 40 mg PO DAILY [facility] Metoprolol Succinate (Toprol Xl -) 25 mg PO DAILY [facility] Last Admin: 01/12/20 12:35 Dose: Not Given Miscellaneous (Lidoderm Patch Removal) 1 each MC DAILY@0830 [facility] Stop: 01/13/20 08:31 Pantoprazole Sodium (Protonix Iv) 40 mg IVPUSH BID [facility] Last Admin: 01/12/20 21:01 Dose: 40 mg - Objective Vital Signs: Vital Signs Temperature 98 F 01/13/20 06:00 Pulse Rate 96 H 01/13/20 06:00 Respiratory Rate 23 H 01/13/20 06:00 Blood Pressure 107/58 L 01/13/20 06:00 O2 Sat by Pulse Oximetry (%) 96 01/12/20 21:00 Constitutional: Yes: No Distress Cardiovascular: Yes: Regular Rate and Rhythm Respiratory: Yes: CTA Bilaterally (decreased breath sounds) Gastrointestinal: Yes: Soft (NT) Edema: No Neurological: Yes: Alert, Oriented Labs: CBC, BMP 01/13/20 06:15 01/13/20 06:15 INR, PTT INR 1.18 (0.83-1.09) H 01/13/20 06:15 Laboratory Tests 01/12/20 01/13/20 01/13/20 06:08 06:15 06:15 WBC 2.5 L Hgb 7.9 L Hct 23.2 L Plt Count 59 L INR Sodium 144 Potassium 3.9 Creatinine 0.9 Magnesium 2.2 Troponin I < 0.02 01/13/20 06:15 WBC Hgb Hct Plt Count INR 1.18 H Sodium Potassium Creatinine Magnesium Troponin I - ....Imaging EKG: Image Reviewed Assessment/Plan IMP: Acute GI bleed Relative hypotension in setting of above- not requiring pressors Known chronic moderate pericardial effusion, no tamponade (-SAADIA/ESR/TSH, recent chest CT no mass)-- followed closely and unchanged CAD s/p UT and prior cath (remote)- anatomy not amenable to revasc Chronic COPD AAA of 4.5cm followed by Vascular (Sandra) Moderate Moderate to severe chronic PHTN secondary to COPD DM Cirrhosis Chronic thrombocytopenia REC: 1. GIB: -Hold ASA -Follow H/H, transfuse to maintain Hb > 8 -Protonix -GI evaluation -ICU monitoring. -She would be considered high risk for endoscopy due to CAD/COPD/PHTN/Moderate . There are presently no absolute cardiac contraindications. 2. Hypotension: not requiring pressors or transfusion to this point. -IV access/ follow H/H -Hydration -Hold Lasix 3. Moderate pericardial effusion: chronic, stable, moderate. -We have reviewed all studies here and in office since approx June 2019 and the effusion is moderate and unchanged without tamponade. -It was reviewed with CT surgery (Liu) and Interventional Cards (Robina) at [facility] and it is not amenable to needle drainage. -She would need to have a window for diagnostic purposes (not for hemodynamic reasons) and she declined that- would be at higher risk due to her chronic low platelets. -Suspect the relative hypotension now due to GIB and not the effusion although prudent to repeat echo 4. CAD: chronic, stable -Hold ASA in this setting. -Can use Low dose Beta gunnar cautiously while in ICU 5. COPD: chronic, stable. Supp O2 as needed 6. AAA: followed by Dr. Flores. 4.5-5cm. Not yet of surgical size. 7. Moderate : asx, serial echo f/u 8. PHTN: moderate to severe secondary to COPD, no specific Rx indicated other than supp O2 and optimization of COPD regimen 9. DM: as per PMD 10. Cirrhosis: thought to be etiology of thrombocytopenia 11. Thrombocytopenia: as above, Heme evaluation. Transfuse as needed for GIB
[2020-01-13] MEDS ORDERED: LIDOCAINE PATCH REMOVAL MC SCH (08:30)
[2020-01-13] MEDS ORDERED: FUROSEMIDE 40 MG TABLET (FP) PO SCH (10:00)
--- NOTE | 2020-01-13 10:08 | PN ---
Teaching Attending Note Name of Resident: Lashay Rajan ATTENDING PHYSICIAN STATEMENT I saw and evaluated the patient. I reviewed the resident's note and discussed the case with the resident. I agree with the resident's findings and plan as documented. SUBJECTIVE: Patient seen and examined in the ICU. Awake and alert. No CP or SOB. 1 episode of bleeding overnight, BRBPR. Hemodynamics stable. Intake & Output 01/10/20 01/11/20 01/12/20 01/13/20 23:59 23:59 23:59 23:59 Intake Total 1323 50 Output Total 700 Balance 623 50 Weight 167 lb 166 lb Last Vital Signs Temp Pulse Resp BP Pulse Ox 98 F 96 H 23 H 107/58 L 96 01/13/20 06:00 01/13/20 06:00 01/13/20 06:00 01/13/20 06:00 01/12/20 21:00 Active Medications Acetaminophen (Tylenol -) 500 mg PO Q8H PRN PRN Reason: HEADACHE Last Admin: 01/12/20 21:02 Dose: 500 mg Bisacodyl (Dulcolax -) 20 mg PO ONCE ONE Stop: 01/13/20 16:01 Furosemide (Lasix Injection -) 40 mg IVPUSH ONCE ONE Stop: 01/13/20 09:10 Metoprolol Succinate (Toprol Xl -) 25 mg PO DAILY [facility] Last Admin: 01/12/20 12:35 Dose: Not Given Pantoprazole Sodium (Protonix Iv) 40 mg IVPUSH BID [facility] Last Admin: 01/12/20 21:01 Dose: 40 mg Polyethylene Glycol/Electrolytes (Golytely Solution -) 4,000 ml PO ONCE ONE Stop: 01/13/20 17:01 GENERAL: Awake, alert, and fully oriented, in no acute distress. HEAD: Normal with no signs of trauma. EYES: Pupils equal, round and reactive to light, extraocular movements intact, sclera anicteric, conjunctiva clear. No lid lag. EARS, NOSE, THROAT: Ears normal, nares patent, oropharynx clear without exudates. Moist mucous membranes. NECK: Normal range of motion, supple without lymphadenopathy, JVD, or masses. LUNGS: Breath sounds equal, clear to auscultation bilaterally. No wheezes, and no crackles. No accessory muscle use. HEART: Regular rate and rhythm, normal S1 and S2, ABDOMEN: Soft, nontender, not distended, normoactive bowel sounds, no guarding, no rebound, no masses. No hepatomegaly or splenomegaly. MUSCULOSKELETAL: Normal range of motion at all joints. No bony deformities or tenderness. No CVA tenderness. LOWER EXTREMITIES: 2+ pulses, warm, well-perfused. No calf tenderness. No peripheral edema. NEUROLOGICAL: Non-focal PSYCHIATRIC: Cooperative. Good eye contact. Appropriate mood and affect. SKIN: Warm, dry, normal turgor, no rashes or lesions noted. Laboratory Results - last 24 hr 01/11/20 01/12/20 01/13/20 14:18 13:24 06:15 WBC 3.9 L 2.5 L RBC 2.65 L 2.33 L Hgb 8.9 L 7.9 L Hct 26.4 L 23.2 L MCV 99.9 H 99.5 H MCH 33.7 34.0 H MCHC 33.7 34.2 RDW 15.4 15.5 Plt Count 66 L D 59 L MPV 7.3 L 7.0 L PT with INR INR PTT (Actin FS) Sodium Potassium Chloride Carbon Dioxide Anion Gap BUN Creatinine Est GFR (CKD-EPI)AfAm Est GFR (CKD-EPI)NonAf Random Glucose Calcium Phosphorus Magnesium Blood Type A POSITIVE Antibody Screen Negative Crossmatch See Detail 01/13/20 01/13/20 06:15 06:15 WBC RBC Hgb Hct MCV MCH MCHC RDW Plt Count MPV PT with INR 13.90 H INR 1.18 H PTT (Actin FS) 37.7 H Sodium 144 Potassium 3.9 Chloride 112 H Carbon Dioxide 27 Anion Gap 5 L BUN 32.9 H Creatinine 0.9 Est GFR (CKD-EPI)AfAm 69.99 Est GFR (CKD-EPI)NonAf 60.39 Random Glucose 146 H Calcium 8.1 L Phosphorus 3.6 Magnesium 2.2 Blood Type Antibody Screen Crossmatch ASSESSMENT/PLAN: GI bleed CHF NIDDM HTN History of pericardial effusion COPD on 2LNC PRN at home Thrombocytopenia Low clinical suspicion of OSAS IVF Normal transfusion thresholds O2 as needed BD TX PRN Monitor off systemic steroids Follow I & O Mechanical SCDs There is no Pulmonary contraindication for anesthesia or endoscopic evaluation. Dr Marks
[2020-01-13] MEDS: PANTOPRAZOLE SODIUM 40 MG VIAL IVPUSH SCH ×2 (10:12→21:48)
--- NOTE | 2020-01-13 10:42 | PN.GI ---
GI Progress Note Subjective: 2 episodes of BRBPR overnight, none since early in AM No abdominal pain - Objective Vital Signs: Vital Signs Temperature 98 F 01/13/20 06:00 Pulse Rate 96 H 01/13/20 06:00 Respiratory Rate 23 H 01/13/20 06:00 Blood Pressure 107/58 L 01/13/20 06:00 O2 Sat by Pulse Oximetry (%) 96 01/12/20 21:00 Constitutional: Calm Eyes: No: Sclera Icterus Cardiovascular: Yes: Regular Rate and Rhythm Respiratory: Yes: CTA Bilaterally Gastrointestinal Inspection: No: Distention ...Auscultate: Yes: Normoactive Bowel Sounds ...Percussion: No: Tympanitic Edema: No (No LE edema) Neurological: Yes: Alert Labs: CBC, BMP 01/13/20 06:15 01/13/20 06:15 INR, PTT INR 1.18 (0.83-1.09) H 01/13/20 06:15 Problem List - Problems (1) GI bleed Assessment/Plan: Two episodes overnight, no active bleeding today Monitor H/H Being transfused 2 U PRBC Seen by hematology. [place] that thrombocytopenia secondary to cirrhosis (No varices noted on most recent / previous endoscopies) Keep Hgb >50K Patient amenable for EGD/Colonoscopy If continued overt bleeding, worsening hemodynamics, CTA to help localize source Clear liquids Patient amenable to procedures. Bowel prep ordered PPI Code(s): K92.2 - GASTROINTESTINAL HEMORRHAGE, UNSPECIFIED Qualifiers: GI bleed type/associated pathology: unspecified gastrointestinal hemorrhage type Qualified Code(s): K92.2 - Gastrointestinal hemorrhage, unspecified
--- NOTE | 2020-01-13 11:02 | PN ---
Physical Exam: SUBJECTIVE: Patient seen and examined. 2 episode of BRBPR overnight. Feels less weak and fatigue. No abd pain. Tolerating clear liquids well. OBJECTIVE: Vital Signs Period Temp Pulse Resp BP Sys/Rider Pulse Ox Last 24 Hr 97.9 F-98.4 F 86-101 18-27 89-112/45-68 96 GENERAL: The patient is awake, alert, and fully oriented, in no acute distress. HEAD: Normal with no signs of trauma. EYES: PERRL, extraocular movements intact, sclera anicteric, conjunctiva clear. No ptosis. ENT: Ears normal, nares patent, oropharynx clear without exudates, moist mucous membranes. NECK: Trachea midline, full range of motion, supple. LUNGS: Breath sounds equal, clear to auscultation bilaterally, no wheezes, no crackles, no accessory muscle use. HEART: Regular rate and rhythm, S1, S2 without murmur, rub or gallop. ABDOMEN: Soft, nontender, nondistended, normoactive bowel sounds, no guarding, no rebound, no hepatosplenomegaly, no masses. RECTAL: excessive external mucosal folds, no palpable internal hemorrhoids, dark red-black stool on GURJIT EXTREMITIES: 2+ pulses, warm, well-perfused, no edema. NEUROLOGICAL: Cranial nerves II through XII grossly intact. Normal speech, gait not observed. PSYCH: Normal mood, normal affect. SKIN: Warm, dry, normal turgor, no rashes or lesions noted Laboratory Results - last 24 hr CBC, BMP 01/13/20 06:15 01/13/20 06:15 Active Medications Acetaminophen (Tylenol -) 500 mg PO Q8H PRN PRN Reason: HEADACHE Last Admin: 01/12/20 21:02 Dose: 500 mg Bisacodyl (Dulcolax -) 20 mg PO ONCE ONE Stop: 01/13/20 16:01 Furosemide (Lasix Injection -) 40 mg IVPUSH ONCE ONE Stop: 01/13/20 09:10 Metoprolol Succinate (Toprol Xl -) 25 mg PO DAILY [facility] Last Admin: 01/12/20 12:35 Dose: Not Given Pantoprazole Sodium (Protonix Iv) 40 mg IVPUSH BID [facility] Last Admin: 01/13/20 10:12 Dose: 40 mg Polyethylene Glycol/Electrolytes (Golytely Solution -) 4,000 ml PO ONCE ONE Stop: 01/13/20 17:01 ASSESSMENT/PLAN: Patient is an 79 year old F w/PMH of CHF, NIDDM, HTN, pericardial effusion, COPD (on 2LNC prn at home), thrombocytopenia presenting from [place] ED for GI bleed with concern for hemodynamic instability BP 114/48 -> 80s/40s. 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 > EGD (12/13/16): duodenal Dieulafory lesion w/ active bleed; s/p epinephrine injection > EGD (08/08/17): duodenal Dieulafoy lesion w/ active bleed; s/p epinephrine injection > EGD (03/12/19): pedunculated and sessile polyps, sessile duodenal polyps -FOBT positive -Protonix 40mg BID -GI following (DiGiorno): plan for colonoscopy tomorrow -Platelet goal >50k, transfuse platelets PRN -Hgb goal >8 -Clear liquid diet Cardio -Hx of HFpEF - not in acute excerbation -Chronic Moderate Pericardial Effusion -Infrarenal AAA -US Aorta (07/14/19): 4.7cm fusiform infrarenal aortic aneurysm -Echo (08/20/2019): mild LVH, EF 50-55%, mod , mod TR, mild-mo MR, PASP ~45mmHg ; large pericardial effusion -Maintain MAP>65 -Hold anti-hypertensive medications in setting of hypotension -Cardio consult: -Hold lasix -Pericardial effusion is stable and not affect hemodynamics -CT-Surg(Nicastri) and Intervent-Card([place]) deemed pt not amenable for pericardiacentesis Pulm -COPD -Supplemental home O2 -Will continue to monitor Heme -Chronic thrombocytopenia -Plt: 71, 75, 49, 66, 59 -S/p platelets x1 -Hgb: 7.9, will transfuse 1 unit PRBC -Continue to monitor with daily CBC -Holding all anti-platelet and AC therapy -Heme (Vida) consult: thrombocytopneia likely 2/2 cirrhosis w/ splenomegaly -Daily PTT, fibrinogen -Keep platelets >50 Renal -Cr stable -F/u daily labs FEN -No fluids -Clear liquid diet Dispo: We will continue to follow the patient. Thank you for this consultative opportunity. Visit type - Emergency Visit Emergency Visit: No - New Patient This patient is new to me today: Yes Date on this admission: 01/15/20 - Critical Care Critical Care patient: Yes Total Critical Care Time (in minutes): 45 Critical Care Statement: The care of this patient involved high complexity decision making to prevent further life threatening deterioration of the patient 's condition and/or to evaluate & treat vital organ system(s) failure or risk of failure. ATTENDING PHYSICIAN STATEMENT I saw and evaluated the patient. I reviewed the resident's note and discussed the case with the resident. I agree with the resident's findings and plan as documented. SUBJECTIVE: OBJECTIVE: ASSESSMENT AND PLAN:
[2020-01-13] MEDS ORDERED: BISACODYL 5 MG TABLET.DR (FP) PO ONE (16:00)
[2020-01-13] MEDS ORDERED: PEG 3350/NA SULF BICARB CL/KCL 4000 ML SOLN.RECON PO ONE (17:00)
[2020-01-13] MEDS: metoPROLOL SUCCINATE 25 MG TAB.SR.24H (FP) PO SCH (17:43)
[2020-01-13] MEDS: ACETAMINOPHEN 500 MG TABLET (FP) PO PRN (17:45)
[2020-01-13 19:35] LABS: HEMATOCRIT 26.5 % (32.4-45.2); HEMOGLOBIN 8.7 GM/dL (10.7-15.3); MCH 32.6 pg (25.7-33.7); MCHC 32.8 g/dl (32.0-36.0); MEAN CELL VOLUME 99.3 fl (80-96); MEAN PLT VOLUME 7.4 fl (7.5-11.1); PLATELET COUNT 58 K/MM3 (134-434); RBC 2.66 M/mm3 (3.60-5.2); RDW 17.5 % (11.6-15.6); WHITE BLOOD COUNT 3.6 K/mm3 (4.0-10.0)
[2020-01-13] MEDS ORDERED: FUROSEMIDE 40 MG/4 ML INJECTABLE VIAL IVPUSH ONE (20:45)
[2020-01-13] MEDS: LIDOCAINE 5% TOPICAL PATCH TP SCH (22:23)
[2020-01-14 05:56] LABS: BASO % 1.4 % (0-2.0); EOS % 3.4 % (0-4.5); HEMATOCRIT 29.2 % (32.4-45.2); HEMOGLOBIN 10.1 GM/dL (10.7-15.3); LYMPH % 18.8 % (8-40); MCH 33.1 pg (25.7-33.7); MCHC 34.6 g/dl (32.0-36.0); MEAN CELL VOLUME 95.5 fl (80-96); MONO % 9.7 % (3.8-10.2); NEUT % 66.7 % (42.8-82.8); PLATELET COUNT 58 K/MM3 (134-434); RBC 3.05 M/mm3 (3.60-5.2); RDW 17.5 % (11.6-15.6); WHITE BLOOD COUNT 3.5 K/mm3 (4.0-10.0)
[2020-01-14 06:10] LABS: INR 1.26 (0.83-1.09); PROTHROMBIN TIME (PATIENT) 14.9 SEC (9.7-13.0)
[2020-01-14 06:13] LABS: ACTIVATED PTT 38.5 SECONDS (25.2-36.5)
[2020-01-14 06:39] LABS: ALBUMIN 3.2 g/dl (3.4-5.0); BLOOD UREA NITROGEN 20.8 mg/dL (7-18); CALCIUM 7.9 mg/dL (8.5-10.1); CREATININE 0.9 mg/dL (0.55-1.3); MAGNESIUM 1.9 mg/dL (1.8-2.4); PHOSPHOROUS 3.3 mg/dL (2.5-4.9); POTASSIUM 3.7 mmol/L (3.5-5.1); TOT PROT 6.1 g/dl (6.4-8.2)
--- NOTE | 2020-01-14 07:55 | PN ---
Progress Note, Physician Chief Complaint: AWAKE ALERT MINIMAL BLOOD PER RECTUM DENIES FEVER OR CHILLS NO REPORTS OF SOB/CHEST PAIN - Current Medication List Current Medications: Active Medications Acetaminophen (Tylenol -) 500 mg PO Q8H PRN PRN Reason: HEADACHE Last Admin: 01/13/20 17:45 Dose: 500 mg Lidocaine (Lidoderm Patch -) 1 patch TP HS [facility] Last Admin: 01/13/20 22:23 Dose: 1 patch Metoprolol Succinate (Toprol Xl -) 25 mg PO DAILY [facility] Last Admin: 01/13/20 17:43 Dose: 25 mg Miscellaneous (Lidoderm Patch Removal) 1 each MC DAILY@1000 [facility] Pantoprazole Sodium (Protonix Iv) 40 mg IVPUSH BID [facility] Last Admin: 01/13/20 21:48 Dose: 40 mg - Objective Vital Signs: Vital Signs Temperature 98.2 F 01/14/20 06:00 Pulse Rate 96 H 01/14/20 06:00 Respiratory Rate 20 01/14/20 06:00 Blood Pressure 104/52 L 01/14/20 06:00 O2 Sat by Pulse Oximetry (%) 96 01/13/20 22:35 Constitutional: Yes: Mild Distress Cardiovascular: Yes: Pulse Irregular Respiratory: Yes: CTA Bilaterally Gastrointestinal: Yes: Soft Genitourinary: Yes: WNL Musculoskeletal: Yes: Muscle Weakness Edema: Yes Edema: LLE: Trace, RLE: Trace Peripheral Pulses WNL: Yes Integumentary: Yes: WNL Wound/Incision: Yes: Clean/Dry Neurological: Yes: Pre-Existing Deficit ...Motor Strength: WNL Psychiatric: Yes: WNL Labs: CBC, BMP 01/14/20 05:40 01/14/20 05:40 INR, PTT INR 1.26 (0.83-1.09) H 01/14/20 05:40 Fibrinogen 190.0 mg/dL (238-498) L 01/14/20 05:40 Problem List - Problems (1) GI bleed Code(s): K92.2 - GASTROINTESTINAL HEMORRHAGE, UNSPECIFIED Qualifiers: GI bleed type/associated pathology: unspecified gastrointestinal hemorrhage type Qualified Code(s): K92.2 - Gastrointestinal hemorrhage, unspecified (2) Anemia due to blood loss, acute Code(s): D62 - ACUTE POSTHEMORRHAGIC ANEMIA (3) Aneurysm of infrarenal abdominal aorta Code(s): I71.4 - ABDOMINAL AORTIC ANEURYSM, WITHOUT RUPTURE (4) CHF (congestive heart failure) Code(s): I50.9 - HEART FAILURE, UNSPECIFIED (5) Guaiac + stool Code(s): R19.5 - OTHER FECAL ABNORMALITIES (6) HTN (hypertension) Code(s): I10 - ESSENTIAL (PRIMARY) HYPERTENSION Qualifiers: Hypertension type: essential hypertension Qualified Code(s): I10 - Essential (primary) hypertension Assessment/Plan MEDICALLY CLEARED FOR COLONOSCOPY AND /OR EGD H/H STABLE AFTER TRANSFUSION AND MINIMAL BLOOD PER RECTUME OVERNIGHT. ALL AC/ASA ON HOLD , DVT PROPHYLAXIS STD BOOTS TRANSFUSE NEEDED, REPEAT CBC IN AM GI/CARDIOLOGY EVAL APPRECIATED PPI IV
[2020-01-14] MEDS: PANTOPRAZOLE SODIUM 40 MG VIAL IVPUSH SCH ×2 (09:20→21:20)
[2020-01-14] MEDS: LIDOCAINE PATCH REMOVAL MC SCH (09:20)
--- NOTE | 2020-01-14 13:02 | PN ---
Teaching Attending Note Name of Resident: Dhiraj Altamirano ATTENDING PHYSICIAN STATEMENT I saw and evaluated the patient. I reviewed the resident's note and discussed the case with the resident. I agree with the resident's findings and plan as documented. SUBJECTIVE: Pt seen and examined in the ICU. Still some bloody bowel movements. For colonoscopy today. No shortness of breath or chest pain. OBJECTIVE: Vital Signs Period Temp Pulse Resp BP Sys/Rider Pulse Ox Last 24 Hr 97.6 F-98.3 F 84-102 15-22 89-127/52-87 96-96 Intake & Output 01/11/20 01/12/20 01/13/20 01/14/20 23:59 23:59 23:59 23:59 Intake Total 1323 1989 122 Output Total 700 Balance 623 1989 122 Weight 75.75 kg 75.296 kg 73.482 kg Gen: NAD at rest Heart: RRR Lung: decreased breath sounds at the bases Abd: soft, nontender Ext: no edema CBC, BMP 01/14/20 05:40 01/14/20 05:40 Active Medications Acetaminophen (Tylenol -) 500 mg PO Q8H PRN PRN Reason: HEADACHE Last Admin: 01/13/20 17:45 Dose: 500 mg Lidocaine (Lidoderm Patch -) 1 patch TP HS [facility] Last Admin: 01/13/20 22:23 Dose: 1 patch Metoprolol Succinate (Toprol Xl -) 25 mg PO DAILY [facility] Last Admin: 01/13/20 17:43 Dose: 25 mg Miscellaneous (Lidoderm Patch Removal) 1 each MC DAILY@1000 [facility] Last Admin: 01/14/20 09:20 Dose: 1 each Pantoprazole Sodium (Protonix Iv) 40 mg IVPUSH BID [facility] Last Admin: 01/14/20 09:20 Dose: 40 mg ASSESSMENT AND PLAN: GI Bleed Acute Blood Loss Anemia Thrombocytopenia Leukopenia Chronic Hypoxic Respiratory Failure COPD LV Diastolic Dysfunction Chronic Pericardial Effusion - monitor CBC - transfuse as needed - for colonoscopy today - protonix - O2 to keep SpO2 >90% - DVT prophylaxis - can monitor on floor pending colonoscopy results
--- NOTE | 2020-01-14 14:05 | PN ---
Physical Exam: SUBJECTIVE: Patient seen and examined O/N: had slight melena, then maroon colored watery BM after colonoscopy prep Denies fatigue, lightheadedness, SOB, palpitations, abd pain OBJECTIVE: Vital Signs Period Temp Pulse Resp BP Sys/Rider Pulse Ox Last 24 Hr 97.6 F-98.3 F 84-102 18-22 89-127/52-87 96-96 GENERAL: Awake, alert, and fully oriented, in no acute distress. HEAD: NC/AT EYES: conjunctiva clear, and w/o pallor. No lid lag. EARS, NOSE, THROAT: Ears normal, nares patent. Moist mucous membranes. NECK: Normal range of motion, supple without lymphadenopathy, JVD, or masses. LUNGS: Breath sounds equal, clear to auscultation bilaterally. No wheezes, and no crackles. No accessory muscle use. Breathing RA HEART: Regular rate and rhythm, normal S1 and S2, +systolic murmur ABDOMEN: Soft, nontender, not distended, normoactive bowel sounds, no guarding, no rebound. MUSCULOSKELETAL: Normal range of motion at all joints. No bony deformities or tenderness. No CVA tenderness. LOWER EXTREMITIES: 2+ pulses, warm, well-perfused. No calf tenderness. No peripheral edema. NEUROLOGICAL: Normal speech. SKIN: Warm, dry, normal turgor, no rashes or lesions noted. Laboratory Results - last 24 hr 01/11/20 01/13/20 01/13/20 14:18 19:13 19:13 WBC 3.6 L RBC 2.66 L Hgb 8.7 L Hct 26.5 L MCV 99.3 H MCH 32.6 MCHC 32.8 RDW 17.5 H Plt Count 58 L MPV 7.4 L Absolute Neuts (auto) Neutrophils % Lymphocytes % Monocytes % Eosinophils % Basophils % Nucleated RBC % PT with INR INR PTT (Actin FS) Fibrinogen 193.0 L Sodium Potassium Chloride Carbon Dioxide Anion Gap BUN Creatinine Est GFR (CKD-EPI)AfAm Est GFR (CKD-EPI)NonAf Random Glucose Calcium Phosphorus Magnesium Total Bilirubin AST ALT Alkaline Phosphatase Total Protein Albumin Blood Type A POSITIVE Antibody Screen Negative Crossmatch See Detail 01/14/20 01/14/20 01/14/20 05:40 05:40 05:40 WBC 3.5 L RBC 3.05 L Hgb 10.1 L Hct 29.2 L MCV 95.5 MCH 33.1 MCHC 34.6 RDW 17.5 H Plt Count 58 L MPV 7.0 L Absolute Neuts (auto) 2.3 Neutrophils % 66.7 Lymphocytes % 18.8 Monocytes % 9.7 Eosinophils % 3.4 Basophils % 1.4 Nucleated RBC % 0 PT with INR 14.90 H INR 1.26 H PTT (Actin FS) 38.5 H Fibrinogen 190.0 L Sodium Potassium Chloride Carbon Dioxide Anion Gap BUN Creatinine Est GFR (CKD-EPI)AfAm Est GFR (CKD-EPI)NonAf Random Glucose Calcium Phosphorus Magnesium Total Bilirubin AST ALT Alkaline Phosphatase Total Protein Albumin Blood Type Antibody Screen Crossmatch 01/14/20 05:40 WBC RBC Hgb Hct MCV MCH MCHC RDW Plt Count MPV Absolute Neuts (auto) Neutrophils % Lymphocytes % Monocytes % Eosinophils % Basophils % Nucleated RBC % PT with INR INR PTT (Actin FS) Fibrinogen Sodium 144 Potassium 3.7 Chloride 113 H Carbon Dioxide 26 Anion Gap 5 L BUN 20.8 H Creatinine 0.9 Est GFR (CKD-EPI)AfAm 69.99 Est GFR (CKD-EPI)NonAf 60.39 Random Glucose 142 H Calcium 7.9 L Phosphorus 3.3 Magnesium 1.9 Total Bilirubin 3.0 H D AST 22 ALT 14 Alkaline Phosphatase 57 Total Protein 6.1 L Albumin 3.2 L Blood Type Antibody Screen Crossmatch Active Medications Generic Name Dose Route Start Last Admin Trade Name Freq PRN Reason Stop Dose Admin Acetaminophen 500 mg 01/12/20 19:55 01/13/20 17:45 Tylenol - PO 500 mg Q8H PRN Administration HEADACHE Lidocaine 1 patch 01/13/20 22:00 01/13/20 22:23 Lidoderm Patch - TP 1 patch HS KRIS Administration Metoprolol Succinate 25 mg 01/12/20 10:00 01/13/20 17:43 Toprol Xl - PO 25 mg DAILY [facility] Administration Miscellaneous 1 each 01/14/20 10:00 01/14/20 09:20 Lidoderm Patch Removal MC 1 each DAILY@1000 KRIS Administration Pantoprazole Sodium 40 mg 01/11/20 22:00 01/14/20 09:20 Protonix Iv IVPUSH 40 mg BID [facility] Administration ASSESSMENT/PLAN: 79 y/o F with hx of CHF, NIDDM, HTN, pericardial effusion, COPD (on 2LNC prn at home), thrombocytopenia presenting from [place] ED for GI bleed with concern for hemodynamic instability BP 114/48 -> 80s/40s. Normotensive while at [facility] Neuro -alert and oriented -monitor mental status GI # bloody diarrhea+clots 2/2 upper vs lower GI bleed vs ?hx of hemorrhoids and thrombocytopenia # chronic gastric and duodenal polyps # h/o Duodenal Dieulafoy lesion # h/o sigmoid diverticulosis > EGD([facility] [place], [place]/13/16): duodenal Dieulafory lesion w/ active bleed; s/p epinephrine injection > EGD([facility] [place], 08/08/17): duodenal Dieulafoy lesion w/ active bleed; s/p epinephrine injection > EGD([facility], 03/12/19): pedunculated and sessile polyps, sessile duodenal polyps > FOBT positive -sp EGD + colonoscopy(01/14/20) --normal EGD --blood and clot noted throughout colon and terminal ileum --moderate diverticulosis of sigmoid and descending colon --1cm sessile polyp vs inverted diverticulum --medium internal hemorrhoids -protonix 40mg BID -GI(DiGiorno) consult: --platelet goal >50k, transfuse platelets PRN --Hgb goal >8 Cardio # hypotension --hypotensive at [facility], but has had MAPs >80 while at [facility] # HFpEF --not in acute excerbation # Chronic Moderate Pericardial Effusion --not affect hemodynamics # infrarenal AAA -s/p 500cc bolus x2 > US Aorta(07/14/19): 4.7cm fusiform infrarenal aortic aneurysm > Echo (08/20/2019): mild LVH, EF 50-55%, mod , mod TR, mild-mo MR, PASP ~4 5mmHg; large pericardial effusion -maintain MAP>65 > US RUQ(03/13/18): hepatomegaly w/ mild fatty infiltration, 7mm echogenic lesion of Left Hepatic lobe > CT A/P(08/01/17): hepatic surface irreg indiciative of cirrhoisis -hold off on home antiHTN, even HOLD lasix(for pericardial effusion) -Cardio consult: --pericardial effusion is stable and not affect hemodynamics --CT-Surg(Nicastri) and Intervent-Card(Robina) deemed pt not amenable for pericardiacentesis --okay for BB -Vascular(Sandra) as outpt for monitoring AAA Pulm # COPD -supplemental home O2 -currently satting 91-96% on RA; ambulatory to bathroom without SOB -will continue to monitor Heme # chronic thrombocytopenia > Plt: 71, 75, 49, 66, 59, 58 -s/p platelets x1 -continue to monitor with daily CBC -hold all anti-platelet and AC therapy -Heme(Vida) consult: thrombocytopneia likely 2/2 cirrhosis w/ splenomegaly --daily PTT, fibrinogen --keep platelets >50 Renal -Cr stable -will follow FEN -CLD Code Status: DNR/DNI Dispo: We will continue to follow the patient. Thank you for this consultative opportunity. Visit type - Emergency Visit Emergency Visit: No - New Patient This patient is new to me today: No - Critical Care Critical Care patient: Yes Total Critical Care Time (in minutes): 35 Critical Care Statement: The care of this patient involved high complexity decision making to prevent further life threatening deterioration of the patient's condition and/or to evaluate & treat vital organ system(s) failure or risk of failure. ATTENDING PHYSICIAN STATEMENT I saw and evaluated the patient. I reviewed the resident's note and discussed the case with the resident. I agree with the resident's findings and plan as documented. SUBJECTIVE: OBJECTIVE: ASSESSMENT AND PLAN:
[2020-01-14] MEDS: metoPROLOL SUCCINATE 25 MG TAB.SR.24H (FP) PO SCH ×2 (14:58→16:42)
[2020-01-14] MEDS: ACETAMINOPHEN 500 MG TABLET (FP) PO PRN (14:58)
--- NOTE | 2020-01-14 16:04 | ECHO ---
Name: REINIER MOORE Exam:Adult Echocardiogram Study Date: 01/14/2020 01:31 PM Age: 79 yrs Reason For Study: f/u Pericardial Effusion Height: 67 in Weight: 167 lb BSA: 1.9 m2 MMode/2D Measurements & Calculations IVSd: 1.8 cm Ao root diam: 3.1 cm LVIDd: 5.9 cm LA dimension: 5.0 cm LVIDs: 3.9 cm ACS: 1.6 cm LVPWd: 1.5 cm EDV(Teich): 174.2 ml LVOT diam: 1.9 cm ESV(Teich): 65.8 ml LAV (MOD-bp): 169.0 ml TAPSE: 2.3 cm RV S Nigel: 17.7 cm/sec Doppler Measurements & Calculations MV E max nigle: 160.4 cm/sec MVA(VTI): 1.7 cm2 MV A max nigel: 143.3 cm/sec MV V2 max: 173.1 cm/sec MV E/A: 1.1 MV max P.0 mmHg MV dec time: 0.19 sec MV V2 mean: 109.9 cm/sec MV mean P.4 mmHg MV V2 VTI: 32.9 cm Ao V2 max: 231.5 cm/sec LV V1 max P.5 mmHg Ao max P.6 mmHg LV V1 mean P.8 mmHg Ao V2 mean: 169.1 cm/sec LV V1 max: 93.8 cm/sec Ao mean P.9 mmHg LV V1 mean: 61.7 cm/sec Ao V2 VTI: 46.4 cm LV V1 VTI: 18.9 cm LUIS(I,D): 1.2 cm2 LUIS(V,D): 1.2 cm2 SV(LVOT): 55.2 ml TR max nigel: 324.4 cm/sec TR max P.8 mmHg PA V2 max: 144.6 cm/sec Med Peak E' Nigel: 6.9 cm/sec PA max P.4 mmHg Med E/e': 23.2 PA V2 mean: 91.0 cm/sec Lat Peak E' Nigel: 7.9 cm/sec PA mean P.9 mmHg Lat E/e': 20.3 PA V2 VTI: 27.2 cm PA acc slope: 398.2 cm/sec2 PA acc time: 0.15 sec PA pr(Accel): 9.3 mmHg Left Ventricle The left ventricle is normal in size. There is mild concentric left ventricular hypertrophy. The left ventricular ejection fraction is normal. Ejection Fraction = 60-65%. Right Ventricle The right ventricle is mild to moderately dilated. The right ventricular systolic function is moderat gema reduced. Atria The left atrium is severely dilated. Borderline right atrial enlargement. Mitral Valve There is severe mitral annular calcification. There is moderate mitral valve thickening. There is mil d mitral stenosis. There is mild to moderate mitral regurgitation. Tricuspid Valve The tricuspid valve is normal. There is mild tricuspid regurgitation. Right ventricular systolic pres sure is elevated at 50-60mmHg. There is moderate pulmonary hypertension. Aortic Valve Calcified. Moderate valvular aortic stenosis. No aortic regurgitation is present. Pulmonic Valve The pulmonic valve is not well seen, but is grossly normal. Great Vessels The aortic root is normal size. Pericardium/Pleura There is a mild pericardial effusion. Interpretation Summary LV: Normal size,mild LVH,normal systolic function, EF 65% RV: Appears mildy-moderately dilated with reduced systolic function LA: Severely dialted RA: Borderline dilated AV: calcified, moderate aortic stenosis MV: Severel calcified annulus, thickened leaflets, mild stenosis,mild-moderate regurgitation TV: Mild TR, RVSP 50-60 mmHg Pericardium: Trivial to small effusion. María Bennett 01/14/2020 04:03 PM
--- NOTE | 2020-01-14 16:35 | PN ---
Progress Note (short form) - Note Progress Note: s: no chest pain, palps, dizziness, dyspnea Current Medications Acetaminophen (Tylenol -) 500 mg PO Q8H PRN PRN Reason: HEADACHE Last Admin: 01/14/20 14:58 Dose: 500 mg Lidocaine (Lidoderm Patch -) 1 patch TP HS [facility] Last Admin: 01/13/20 22:23 Dose: 1 patch Metoprolol Succinate (Toprol Xl -) 25 mg PO DAILY [facility] Last Admin: 01/14/20 14:58 Dose: 25 mg Miscellaneous (Lidoderm Patch Removal) 1 each MC DAILY@1000 [facility] Last Admin: 01/14/20 09:20 Dose: 1 each Pantoprazole Sodium (Protonix Iv) 40 mg IVPUSH BID [facility] Last Admin: 01/14/20 09:20 Dose: 40 mg Vital Signs Period Temp Pulse Resp BP Sys/Irder Pulse Ox Last 24 Hr 97.6 F-98.2 F 84-102 17-22 89-127/52-87 96-96 Constitutional: Yes: No Distress Cardiovascular: Yes: Regular Rate and Rhythm Respiratory: Yes: CTA Bilaterally (decreased breath sounds) Gastrointestinal: Yes: Soft (NT) Edema: No Neurological: Yes: Alert, Oriented no jaundice, diaphoresis not agitated - ....Imaging EKG: Image Reviewed echo 01/2020 mild conc LVH, nl LV function, RV mild-mod dilated with reduced function, LA severely dilated, mild to mod MR, mild MS, severe MAC, trivial to small pericardial effusion, RVSP 50-60 mmHg Assessment/Plan IMP: Acute GI bleed Relative hypotension in setting of above- not requiring pressors Known chronic moderate pericardial effusion, no tamponade (-SAADIA/ESR/TSH, recent chest CT no mass)-- followed closely and unchanged CAD s/p MN and prior cath (remote)- anatomy not amenable to revasc Chronic COPD AAA of 4.5cm followed by Vascular (Sandra) Moderate Moderate to severe chronic PHTN secondary to COPD DM Cirrhosis Chronic thrombocytopenia REC: 1. GIB: -Hold ASA -Follow H/H, transfuse to maintain Hb > 8 -Protonix - s/p EGD/colo, manage per GI 2. Hypotension: not requiring pressors or transfusion to this point. -IV access/ follow H/H -Hydration - cont holding lasix 3. Moderate pericardial effusion - trivial to small pericardial effusion on echo here - since approx June 2019 - the effusion is moderate and unchanged without tamponade -It was reviewed with CT surgery (Liu) and Interventional Cards (Robina) at [facility] and it is not amenable to needle drainage. -She would need to have a window for diagnostic purposes (not for hemodynamic reasons) and she declined that- would be at higher risk due to her chronic low platelets. -improved on echo here 4. CAD: chronic, stable -Hold ASA in this setting. -cont metoprolol 5. COPD: chronic, stable. Supp O2 as needed 6. AAA: followed by Dr. Flores. 4.5-5cm, outpatient follow up 7. Moderate : asx, serial echo f/u 8. PHTN: moderate to severe secondary to COPD, no specific Rx indicated other than supp O2 and optimization of COPD regimen 9. DM: as per PMD 10. Cirrhosis: thought to be etiology of thrombocytopenia 11. Thrombocytopenia: as above, Heme evaluation. Transfuse as needed for GIB
--- NOTE | 2020-01-14 18:15 | PN ---
Progress Note (short form) - Note Progress Note: PAtient seen and examined Feels better Bleeding resolved s/p EGD/ colonoscopy Last Vital Signs Temp Pulse Resp BP Pulse Ox 98.1 F 93 H 19 98/63 96 01/14/20 14:00 01/14/20 18:00 01/14/20 18:00 01/14/20 16:00 01/14/20 08:49 Cor: RSR, No murmurs, No gallops Lungs: Clear to P&A Abd: Soft, Normal bowel sounds, No organomegaly Ext:No significant edema Labs/Meds reviewed A/P Chronic thrombocytopenia, leukopenia likely 2/2 cirrhosis with splenomegaly. Peripheral smear unremarkable. Transfuse Monodonor platelets to >50 and FFP if actively bleeding. f/u EGD/colonoscopy reports
[2020-01-14] MEDS: LIDOCAINE 5% TOPICAL PATCH TP SCH (21:20)
[2020-01-15 06:39] LABS: HEMATOCRIT 26.6 % (32.4-45.2); MCH 32.8 pg (25.7-33.7); MCHC 33.9 g/dl (32.0-36.0); MEAN CELL VOLUME 96.9 fl (80-96); MEAN PLT VOLUME 6.9 fl (7.5-11.1); PLATELET COUNT 48 K/MM3 (134-434); RBC 2.75 M/mm3 (3.60-5.2); RDW 17.8 % (11.6-15.6)
[2020-01-15 07:03] LABS: BILIRUBIN,TOTAL 1.1 mg/dL (0.2-1); BLOOD UREA NITROGEN 12.8 mg/dL (7-18); CALCIUM 8.2 mg/dL (8.5-10.1); CREATININE 0.8 mg/dL (0.55-1.3); MAGNESIUM 2.1 mg/dL (1.8-2.4); PHOSPHOROUS 3.2 mg/dL (2.5-4.9); POTASSIUM 3.7 mmol/L (3.5-5.1); TOT PROT 5.6 g/dl (6.4-8.2)
--- NOTE | 2020-01-15 08:23 | PN ---
Progress Note, Physician - Current Medication List Current Medications: Active Medications Acetaminophen (Tylenol -) 500 mg PO Q8H PRN PRN Reason: HEADACHE Last Admin: 01/14/20 14:58 Dose: 500 mg Lidocaine (Lidoderm Patch -) 1 patch TP HS [facility] Last Admin: 01/14/20 21:20 Dose: 1 patch Metoprolol Succinate (Toprol Xl -) 25 mg PO DAILY [facility] Last Admin: 01/14/20 16:42 Dose: Not Given Miscellaneous (Lidoderm Patch Removal) 1 each MC DAILY@1000 [facility] Last Admin: 01/14/20 09:20 Dose: 1 each Pantoprazole Sodium (Protonix Iv) 40 mg IVPUSH BID [facility] Last Admin: 01/14/20 21:20 Dose: 40 mg - Objective Vital Signs: Vital Signs Temperature 98.4 F 01/15/20 04:00 Pulse Rate 84 01/15/20 06:04 Respiratory Rate 19 01/15/20 06:04 Blood Pressure 105/51 L 01/15/20 06:04 O2 Sat by Pulse Oximetry (%) 96 01/14/20 20:51 Cardiovascular: Yes: Murmur, S1, S2 Respiratory: Yes: Regular, CTA Bilaterally Gastrointestinal: Yes: Normal Bowel Sounds, Soft. No: Tenderness Labs: CBC, BMP 01/15/20 05:30 01/15/20 06:00 INR, PTT INR 1.26 (0.83-1.09) H 01/14/20 05:40 Fibrinogen 190.0 mg/dL (238-498) L 01/14/20 05:40 Problem List - Problems (1) GI bleed Assessment/Plan: hgb stable--monitor egd and colon noted and discussed with patient Code(s): K92.2 - GASTROINTESTINAL HEMORRHAGE, UNSPECIFIED Qualifiers: GI bleed type/associated pathology: unspecified gastrointestinal hemorrhage type Qualified Code(s): K92.2 - Gastrointestinal hemorrhage, unspecified (2) Aneurysm of infrarenal abdominal aorta Assessment/Plan: stable no intervention Code(s): I71.4 - ABDOMINAL AORTIC ANEURYSM, WITHOUT RUPTURE (3) Anemia Assessment/Plan: asa cheli follow counts Code(s): D64.9 - ANEMIA, UNSPECIFIED Qualifiers: Anemia type: unspecified type Qualified Code(s): D64.9 - Anemia, unspecified (4) COPD (chronic obstructive pulmonary disease) Assessment/Plan: stable Code(s): J44.9 - CHRONIC OBSTRUCTIVE PULMONARY DISEASE, UNSPECIFIED Qualifiers: COPD type: unspecified COPD Qualified Code(s): J44.9 - Chronic obstructive pulmonary disease, unspecified (5) Thrombocytopenia Assessment/Plan: transfuse per hem Code(s): D69.6 - THROMBOCYTOPENIA, UNSPECIFIED
--- NOTE | 2020-01-15 08:36 | PN ---
Physical Exam: SUBJECTIVE: Patient seen and examined. S/p EGD and colonoscopy yesterday without complications. Pt had 1 small episode of BRBPR. Tolerating clear diet well. OBJECTIVE: Vital Signs Period Temp Pulse Resp BP Sys/Rider Pulse Ox Last 24 Hr 98.1 F-98.6 F 84-100 15-23 89-107/50-71 96-96 GENERAL: The patient is awake, alert, and fully oriented, in no acute distress. HEAD: Normal with no signs of trauma. EYES: PERRL, extraocular movements intact, sclera anicteric, conjunctiva clear. No ptosis. ENT: Ears normal, nares patent, oropharynx clear without exudates, moist mucous membranes. NECK: Trachea midline, full range of motion, supple. LUNGS: Breath sounds equal, clear to auscultation bilaterally, no wheezes, no crackles, no accessory muscle use. HEART: Regular rate and rhythm, S1, S2 without murmur, rub or gallop. ABDOMEN: Soft, nontender, nondistended, normoactive bowel sounds, no guarding, no rebound, no hepatosplenomegaly, no masses. EXTREMITIES: 2+ pulses, warm, well-perfused, no edema. NEUROLOGICAL: Cranial nerves II through XII grossly intact. Normal speech, gait not observed. PSYCH: Normal mood, normal affect. SKIN: Warm, dry, normal turgor, no rashes or lesions noted Laboratory Results - last 24 hr 01/15/20 01/15/20 05:30 06:00 WBC 3.0 L RBC 2.75 L Hgb 9.0 L Hct 26.6 L MCV 96.9 H MCH 32.8 MCHC 33.9 RDW 17.8 H Plt Count 48 L MPV 6.9 L Sodium 144 Potassium 3.7 Chloride 112 H Carbon Dioxide 27 Anion Gap 5 L BUN 12.8 Creatinine 0.8 Est GFR (CKD-EPI)AfAm 80.70 Est GFR (CKD-EPI)NonAf 69.63 Random Glucose 140 H Calcium 8.2 L Phosphorus 3.2 Magnesium 2.1 Total Bilirubin 1.1 H AST 19 ALT 14 Alkaline Phosphatase 54 Total Protein 5.6 L Albumin 3.0 L Active Medications Acetaminophen (Tylenol -) 500 mg PO Q8H PRN PRN Reason: HEADACHE Last Admin: 01/14/20 14:58 Dose: 500 mg Lidocaine (Lidoderm Patch -) 1 patch TP HS [facility] Last Admin: 01/14/20 21:20 Dose: 1 patch Metoprolol Succinate (Toprol Xl -) 25 mg PO DAILY [facility] Last Admin: 01/14/20 16:42 Dose: Not Given Miscellaneous (Lidoderm Patch Removal) 1 each MC DAILY@1000 [facility] Last Admin: 01/14/20 09:20 Dose: 1 each Pantoprazole Sodium (Protonix Iv) 40 mg IVPUSH BID [facility] Last Admin: 01/14/20 21:20 Dose: 40 mg ASSESSMENT/PLAN: Patient is an 79 year old F w/PMH of CHF, NIDDM, HTN, pericardial effusion, COPD (on 2LNC prn at home), thrombocytopenia presenting from [place] ED for GI bleed with concern for hemodynamic instability BP 114/48 -> 80s/40s. Normotensive while at [facility] Neuro -Alert and oriented -Monitor mental status GI -Bloody diarrhea+clots 2/2 upper vs lower GI bleed vs hx of hemorrhoids and thrombocytopenia -S/p EGD and colonoscopy yesterday > EGD (01/14/20): normal mucosa > Colonoscopy (01/14/20): moderate diverticoluosis in sigmoid and descending colon, sessile polyp 1cm, blood & clot throughout colon & terminal ileum -Protonix 40mg BID -GI following (DiGiorno) -Platelet goal >50k, transfuse platelets PRN -Hgb goal >8 -Clear liquid diet -If continues to bleed, then recommend CTA Cardio -Hx of HFpEF - not in acute excerbation -Chronic Moderate Pericardial Effusion -Infrarenal AAA -US Aorta (07/14/19): 4.7cm fusiform infrarenal aortic aneurysm -Echo (08/20/2019): mild LVH, EF 50-55%, mod , mod TR, mild-mo MR, PASP ~45mmHg; large pericardial effusion -Maintain MAP>65 -Hold anti-hypertensive medications in setting of hypotension -Cardio consult: -Hold lasix -Pericardial effusion is stable and not affect hemodynamics -CT-Surg(Nicastri) and Intervent-Card([place]) deemed pt not amenable for pericardiacentesis Pulm -COPD -Supplemental home O2 -Will continue to monitor Heme -Chronic thrombocytopenia -Plt: 71, 75, 49, 66, 59 -S/p platelets x1 -Hgb: 7.9, will transfuse 1 unit PRBC -Continue to monitor with daily CBC -Holding all anti-platelet and AC therapy -Heme ([place]) consult: thrombocytopneia likely 2/2 cirrhosis w/ splenomegaly -Daily PTT, fibrinogen -Keep platelets >50 Renal -Cr stable -F/u daily labs FEN -No fluids -Clear liquid diet Dispo: We will continue to follow the patient. Thank you for this consultative opportunity. Visit type - Emergency Visit Emergency Visit: No - New Patient This patient is new to me today: No - Critical Care Critical Care patient: Yes Total Critical Care Time (in minutes): 45 Critical Care Statement: The care of this patient involved high complexity decision making to prevent further life threatening deterioration of the patient's condition and/or to evaluate & treat vital organ system(s) failure or risk of failure. ATTENDING PHYSICIAN STATEMENT I saw and evaluated the patient. I reviewed the resident's note and discussed the case with the resident. I agree with the resident's findings and plan as documented. SUBJECTIVE: OBJECTIVE: ASSESSMENT AND PLAN:
[2020-01-15] MEDS ORDERED: PT OWN MED DRAWER 7, Y5N ONE ×2 (10:24→11:13)
[2020-01-15] MEDS: PANTOPRAZOLE SODIUM 40 MG VIAL IVPUSH SCH ×2 (10:25→22:54)
[2020-01-15] MEDS: metoPROLOL SUCCINATE 25 MG TAB.SR.24H (FP) PO SCH (10:25)
[2020-01-15] MEDS: LIDOCAINE PATCH REMOVAL MC SCH ×2 (10:26→21:54)
--- NOTE | 2020-01-15 11:03 | PN ---
Progress Note (short form) - Note Progress Note: s: no chest pain, palps, dizziness, dyspnea Current Medications Acetaminophen (Tylenol -) 500 mg PO Q8H PRN PRN Reason: HEADACHE Last Admin: 01/14/20 14:58 Dose: 500 mg Lidocaine (Lidoderm Patch -) 1 patch TP HS [facility] Last Admin: 01/14/20 21:20 Dose: 1 patch Metoprolol Succinate (Toprol Xl -) 25 mg PO DAILY [facility] Last Admin: 01/15/20 10:25 Dose: 25 mg Miscellaneous (Lidoderm Patch Removal) 1 each MC DAILY@1000 [facility] Last Admin: 01/15/20 10:26 Dose: 1 each Pantoprazole Sodium (Protonix Iv) 40 mg IVPUSH BID [facility] Last Admin: 01/15/20 10:25 Dose: 40 mg Vital Signs Period Temp Pulse Resp BP Sys/Rider Pulse Ox Last 24 Hr 98.1 F-98.6 F 84-100 15-23 89-112/50-79 96 Constitutional: Yes: No Distress Cardiovascular: Yes: Regular Rate and Rhythm Respiratory: Yes: CTA Bilaterally (decreased breath sounds) Gastrointestinal: Yes: Soft (NT) Edema: No Neurological: Yes: Alert, Oriented no jaundice, diaphoresis not agitated - ....Imaging EKG: Image Reviewed echo 01/2020 mild conc LVH, nl LV function, RV mild-mod dilated with reduced function, LA severely dilated, mild to mod MR, mild MS, severe MAC, trivial to small pericardial effusion, RVSP 50-60 mmHg Assessment/Plan IMP: Acute GI bleed Relative hypotension in setting of above- not requiring pressors Known chronic moderate pericardial effusion, no tamponade (-SAADIA/ESR/TSH, recent chest CT no mass)-- followed closely and unchanged CAD s/p [place] and prior cath (remote)- anatomy not amenable to revasc Chronic COPD AAA of 4.5cm followed by Vascular (Sandra) Moderate Moderate to severe chronic PHTN secondary to COPD DM Cirrhosis Chronic thrombocytopenia REC: 1. GIB: -Hold ASA -Follow H/H, transfuse to maintain Hb > 8 -Protonix - s/p EGD/colo, manage per GI 2. Hypotension: not requiring pressors or transfusion to this point. -IV access/ follow H/H -Hydration - cont holding lasix 3. pericardial effusion - trivial to small pericardial effusion on echo here - since approx June 2019 - the effusion was moderate and unchanged without tamponade - reviewed by CT surgery and interventional, not amenable to needle drainage and declined window in the past - higher risk due to her chronic low platelets. -improved on echo here 4. CAD: chronic, stable -Holding ASA -cont metoprolol 5. COPD: chronic, stable. Supp O2 as needed 6. AAA: followed by Dr. Flores. 4.5-5cm, outpatient follow up 7. Moderate : asx, serial echo f/u 8. PHTN: moderate to severe secondary to COPD, no specific Rx indicated other than supp O2 and optimization of COPD regimen 9. DM: as per PMD 10. Cirrhosis: thought to be etiology of thrombocytopenia 11. Thrombocytopenia: as above, Heme evaluation. Transfuse as needed for GIB
--- NOTE | 2020-01-15 11:08 | PN ---
Teaching Attending Note Name of Resident: Lashay Rajan ATTENDING PHYSICIAN STATEMENT I saw and evaluated the patient. I reviewed the resident's note and discussed the case with the resident. I agree with the resident's findings and plan as documented. SUBJECTIVE: Pt seen and examined in the ICU. s/p EGD/colonoscopy showing diverticulosis, internal hemorrhoids, blood in colon but no active bleeding. Denies shortness of breath or chest pain. Some residual blood with last BM. OBJECTIVE: Vital Signs Period Temp Pulse Resp BP Sys/Rider Pulse Ox Last 24 Hr 98.1 F-98.6 F 84-100 15-23 89-112/50-79 96 Intake & Output 01/12/20 01/13/20 01/14/20 01/15/20 23:59 23:59 23:59 23:59 Intake Total 1323 1989 1410 130 Output Total 700 Balance 623 1989 1410 130 Weight 75.296 kg 73.482 kg 74.752 kg Gen: NAD at rest Heart: RRR Lung: decreased breath sounds at the bases Abd: soft, nontender Ext: no edema CBC, BMP 01/15/20 05:30 01/15/20 06:00 Active Medications Acetaminophen (Tylenol -) 500 mg PO Q8H PRN PRN Reason: HEADACHE Last Admin: 01/14/20 14:58 Dose: 500 mg Lidocaine (Lidoderm Patch -) 1 patch TP HS [facility] Last Admin: 01/14/20 21:20 Dose: 1 patch Metoprolol Succinate (Toprol Xl -) 25 mg PO DAILY [facility] Last Admin: 01/15/20 10:25 Dose: 25 mg Miscellaneous (Lidoderm Patch Removal) 1 each MC DAILY@1000 [facility] Last Admin: 01/15/20 10:26 Dose: 1 each Pantoprazole Sodium (Protonix Iv) 40 mg IVPUSH BID [facility] Last Admin: 01/15/20 10:25 Dose: 40 mg ASSESSMENT AND PLAN: GI Bleed Acute Blood Loss Anemia Thrombocytopenia Leukopenia Chronic Hypoxic Respiratory Failure COPD LV Diastolic Dysfunction Chronic Pericardial Effusion - monitor CBC - transfuse as needed - protonix - O2 to keep SpO2 >90% - DVT prophylaxis - can monitor on floor
[2020-01-15] MEDS: ACETAMINOPHEN 500 MG TABLET (FP) PO PRN ×2 (11:36→21:42)
[2020-01-15] MEDS ORDERED: SODIUM CHLORIDE 500 ML IV STA (13:37)
[2020-01-15 14:44] VITALS: BMI 25.7
[2020-01-15 15:10] LABS: HEMOGLOBIN 8.4 GM/dL (10.7-15.3); MCH 31.8 pg (25.7-33.7); MCHC 32.3 g/dl (32.0-36.0); MEAN CELL VOLUME 98.4 fl (80-96); PLATELET COUNT 66 K/MM3 (134-434); RBC 2.64 M/mm3 (3.60-5.2); RDW 17.9 % (11.6-15.6); WHITE BLOOD COUNT 3.2 K/mm3 (4.0-10.0)
--- NOTE | 2020-01-15 17:44 | PN.GI ---
GI Progress Note Subjective: No Bleeding No BM States feeling well - Objective Vital Signs: Vital Signs Temperature 98.6 F 01/15/20 14:00 Pulse Rate 88 01/15/20 16:00 Respiratory Rate 18 01/15/20 16:00 Blood Pressure 113/62 01/15/20 16:00 O2 Sat by Pulse Oximetry (%) 99 01/15/20 09:00 Constitutional: Calm Cardiovascular: Yes: Regular Rate and Rhythm, Murmur Respiratory: Yes: CTA Bilaterally Gastrointestinal Inspection: No: Distention ...Auscultate: Yes: Normoactive Bowel Sounds ...Palpate: Yes: Soft. No: Hepatomegaly, Splenomegaly, Tenderness Edema: No (No LE edema) Labs: CBC, BMP 01/15/20 15:00 01/15/20 06:00 INR, PTT INR 1.26 (0.83-1.09) H 01/14/20 05:40 Fibrinogen 190.0 mg/dL (238-498) L 01/14/20 05:40 Problem List - Problems (1) GI bleed Assessment/Plan: S/P EGD/Colon. Suspected diverticular bleed No overt bleeding today: Keep Platelets >50k Advanced diet If rebleeding, CTA to help localize bleed source Code(s): K92.2 - GASTROINTESTINAL HEMORRHAGE, UNSPECIFIED Qualifiers: GI bleed type/associated pathology: unspecified gastrointestinal hemorrhage type Qualified Code(s): K92.2 - Gastrointestinal hemorrhage, unspecified
--- NOTE | 2020-01-15 17:53 | PN ---
Progress Note (short form) - Note Progress Note: PAtient seen and examined Feels better Bleeding resolved s/p EGD/ colonoscopy Last Vital Signs Temp Pulse Resp BP Pulse Ox 98.6 F 88 18 113/62 99 01/15/20 14:00 01/15/20 16:00 01/15/20 16:00 01/15/20 16:00 01/15/20 09:00 Cor: RSR, No murmurs, No gallops Lungs: Clear to P&A Abd: Soft, Normal bowel sounds, No organomegaly Ext:No significant edema Labs/Meds reviewed A/P Chronic thrombocytopenia, leukopenia likely 2/2 cirrhosis with splenomegaly. Peripheral smear unremarkable. Transfuse Monodonor platelets to >50 and FFP if actively bleeding. f/u EGD/colonoscopy reports
[2020-01-15] MEDS: LIDOCAINE 5% TOPICAL PATCH TP SCH (21:43)
[2020-01-15] MEDS ORDERED: LIDOCAINE PATCH REMOVAL MC SCH (22:00)
[2020-01-16 08:36] LABS: EOS % 3.6 % (0-4.5); HEMATOCRIT 24.8 % (32.4-45.2); HEMOGLOBIN 8.3 GM/dL (10.7-15.3); LYMPH % 21.8 % (8-40); MCH 32.5 pg (25.7-33.7); MCHC 33.3 g/dl (32.0-36.0); MEAN CELL VOLUME 97.4 fl (80-96); MEAN PLT VOLUME 7.3 fl (7.5-11.1); MONO % 9.9 % (3.8-10.2); NEUT % 63.7 % (42.8-82.8); PLATELET COUNT 61 K/MM3 (134-434); RBC 2.55 M/mm3 (3.60-5.2); RDW 17.9 % (11.6-15.6); WHITE BLOOD COUNT 2.5 K/mm3 (4.0-10.0)
[2020-01-16 09:03] LABS: ALBUMIN 2.9 g/dl (3.4-5.0); BLOOD UREA NITROGEN 16.2 mg/dL (7-18); CALCIUM 8.2 mg/dL (8.5-10.1); CREATININE 0.9 mg/dL (0.55-1.3); PHOSPHOROUS 3.3 mg/dL (2.5-4.9); TOT PROT 5.6 g/dl (6.4-8.2)
[2020-01-16] MEDS: LIDOCAINE PATCH REMOVAL MC SCH (09:19)
[2020-01-16] MEDS: PANTOPRAZOLE SODIUM 40 MG VIAL IVPUSH SCH ×2 (09:19→21:31)
--- NOTE | 2020-01-16 12:00 | PN ---
Progress Note, Physician Chief Complaint: GI bleed Anemia History of Present Illness: NAD in bed H/H stable Denies any melena or hematochezia, Last BM yesterday, was straining to go. - Current Medication List Current Medications: Active Medications Acetaminophen (Tylenol -) 500 mg PO Q8H PRN PRN Reason: HEADACHE Last Admin: 01/15/20 21:42 Dose: 500 mg Lidocaine (Lidoderm Patch -) 1 patch TP HS [facility] Last Admin: 01/15/20 21:43 Dose: 1 patch Miscellaneous (Lidoderm Patch Removal) 1 each MC DAILY@1000 [facility] Last Admin: 01/16/20 09:19 Dose: 1 each Pantoprazole Sodium (Protonix Iv) 40 mg IVPUSH BID [facility] Last Admin: 01/16/20 09:19 Dose: 40 mg - Objective Vital Signs: Vital Signs Temperature 98.0 F 01/16/20 07:51 Pulse Rate 89 01/16/20 07:51 Respiratory Rate 20 01/16/20 07:51 Blood Pressure 103/60 01/16/20 07:51 O2 Sat by Pulse Oximetry (%) 95 01/16/20 10:00 Constitutional: Yes: Well Nourished, No Distress, Calm Cardiovascular: Yes: Regular Rate and Rhythm Respiratory: Yes: Regular, CTA Bilaterally Gastrointestinal: Yes: Normal Bowel Sounds, Soft Genitourinary: Yes: WNL Musculoskeletal: Yes: WNL Extremities: Yes: WNL Edema: No Peripheral Pulses WNL: Yes Neurological: Yes: Alert, Oriented Psychiatric: Yes: Alert, Oriented Labs: CBC, BMP 01/16/20 07:41 01/16/20 07:41 INR, PTT INR 1.26 (0.83-1.09) H 01/14/20 05:40 Fibrinogen 190.0 mg/dL (238-498) L 01/14/20 05:40 Problem List - Problems (1) GI bleed Assessment/Plan: -Bloody diarrhea+clots 2/2 upper vs lower GI bleed vs hx of hemorrhoids and thrombocytopenia -S/p EGD and colonoscopy > EGD (01/14/20): normal mucosa > Colonoscopy (01/14/20): moderate diverticoluosis in sigmoid and descending colon, sessile polyp 1cm, blood & clot throughout colon & terminal ileum -Protonix 40mg BID -GI consult appreciated -Platelet goal >50k, transfuse platelets PRN -Hgb goal >8 -tolerating PO intake -If continues to bleed, then recommend CTA -If H/H remains stable in AM, can be discharged home with outpatient follow up. Code(s): K92.2 - GASTROINTESTINAL HEMORRHAGE, UNSPECIFIED Qualifiers: GI bleed type/associated pathology: unspecified gastrointestinal hemorrhage type Qualified Code(s): K92.2 - Gastrointestinal hemorrhage, unspecified (2) Thrombocytopenia Assessment/Plan: -WBC lower today -Hg mildly low -continue to monitor -repeat labs in AM -No over bleeding -Hematology on board Problems reviewed: Yes Code(s): D69.6 - THROMBOCYTOPENIA, UNSPECIFIED Assessment/Plan See problem list
--- NOTE | 2020-01-16 12:18 | PN.GI ---
GI Progress Note Subjective: Pt seen/examined, transferred to floor, sitting in chair wants to go home. Feeling better, denies abdominal pain, thinks she might have seen trace of blood in stool yesterday when she was straining with bm, none today tolerating po. - Objective Vital Signs: Vital Signs Temperature 98.0 F 01/16/20 07:51 Pulse Rate 89 01/16/20 07:51 Respiratory Rate 20 01/16/20 07:51 Blood Pressure 103/60 01/16/20 07:51 O2 Sat by Pulse Oximetry (%) 95 01/16/20 10:00 Constitutional: Well Nourished, No Distress, Calm Cardiovascular: Yes: WNL, Regular Rate and Rhythm Respiratory: Yes: WNL, Regular, CTA Bilaterally ...Palpate: Yes: Other (Abd soft, nt, nd) Labs: CBC, BMP 01/16/20 07:41 01/16/20 07:41 INR, PTT INR 1.26 (0.83-1.09) H 01/14/20 05:40 Fibrinogen 190.0 mg/dL (238-498) L 01/14/20 05:40 Problem List - Problems (1) GI bleed Assessment/Plan: 79yo female with rectal bleeding s/p EGD and colonoscopy, suspected resolved diverticular bleed. Hb overall stable with pancytopenia noted. -Continue to monitor Hb and for further bleeding -Diet as tolerated -If further bleeding or hemodynamic instability recommend CTA and IR consult -Heme consult noted, appears to have had unrevealing prior pancytopenia workup thought likely secondary to underlying liver disease ?RAM (no varices on endoscopy) -Recommend baseline hepatitis serologies Code(s): K92.2 - GASTROINTESTINAL HEMORRHAGE, UNSPECIFIED Qualifiers: GI bleed type/associated pathology: unspecified gastrointestinal hemorrhage type Qualified Code(s): K92.2 - Gastrointestinal hemorrhage, unspecified
--- NOTE | 2020-01-16 12:23 | PN ---
Progress Note (short form) - Note Progress Note: s: no chest pain, palps, dizziness, dyspnea Current Medications Acetaminophen (Tylenol -) 500 mg PO Q8H PRN PRN Reason: HEADACHE Last Admin: 01/15/20 21:42 Dose: 500 mg Lidocaine (Lidoderm Patch -) 1 patch TP HS [facility] Last Admin: 01/15/20 21:43 Dose: 1 patch Miscellaneous (Lidoderm Patch Removal) 1 each MC DAILY@1000 [facility] Last Admin: 01/16/20 09:19 Dose: 1 each Pantoprazole Sodium (Protonix Iv) 40 mg IVPUSH BID [facility] Last Admin: 01/16/20 09:19 Dose: 40 mg Vital Signs Period Temp Pulse Resp BP Sys/Rider Pulse Ox Last 24 Hr 97.6 F-98.6 F 80-92 18-20 97-113/55-62 95-99 Constitutional: Yes: No Distress Cardiovascular: Yes: Regular Rate and Rhythm Respiratory: Yes: CTA Bilaterally (decreased breath sounds) Gastrointestinal: Yes: Soft (NT) Edema: No Neurological: Yes: Alert, Oriented no jaundice, diaphoresis not agitated - ....Imaging EKG: Image Reviewed echo 01/2020 mild conc LVH, nl LV function, RV mild-mod dilated with reduced function, LA severely dilated, mild to mod MR, mild MS, severe MAC, trivial to small pericardial effusion, RVSP 50-60 mmHg Assessment/Plan IMP: Acute GI bleed Relative hypotension in setting of above- not requiring pressors Known chronic moderate pericardial effusion, no tamponade (-SAADIA/ESR/TSH, recent chest CT no mass)-- followed closely and unchanged CAD s/p [place] and prior cath (remote)- anatomy not amenable to revasc Chronic COPD AAA of 4.5cm followed by Vascular ([facility]) Moderate Moderate to severe chronic PHTN secondary to COPD DM Cirrhosis Chronic thrombocytopenia REC: 1. GIB: -Holding ASA -Follow H/H, transfuse to maintain Hb > 8 -Protonix - s/p EGD/colo, likely diverticular bleed, manage per GI 2. Hypotension: not requiring pressors or transfusion to this point. -IV access/ follow H/H -Hydration - cont holding lasix 3. pericardial effusion - trivial to small pericardial effusion on echo here - since approx June 2019 - the effusion was moderate and unchanged without tamponade - reviewed by CT surgery and interventional, not amenable to needle drainage and declined window in the past - higher risk due to her chronic low platelets. -improved on echo here 4. CAD: chronic, stable -Holding ASA -cont metoprolol 5. COPD: chronic, stable. Supp O2 as needed 6. AAA: followed by Dr. Flores. 4.5-5cm, outpatient follow up 7. Moderate : asx, serial echo f/u 8. PHTN: moderate to severe secondary to COPD, no specific Rx indicated other than supp O2 and optimization of COPD regimen 9. DM: as per PMD 10. Cirrhosis: thought to be etiology of thrombocytopenia 11. Thrombocytopenia: as above, Heme evaluation. Transfuse as needed for GIB
[2020-01-16] MEDS: ACETAMINOPHEN 500 MG TABLET (FP) PO PRN ×2 (13:38→21:31)
--- NOTE | 2020-01-16 14:30 | PN ---
Progress Note (short form) - Note Progress Note: PULMONARY Trace blood in stool overnight. Denies shortness of breath, chest pain. Vital Signs Period Temp Pulse Resp BP Sys/Rider Pulse Ox Last 24 Hr 97.6 F-98.0 F 88-92 18-20 103-113/55-62 95-99 Gen: NAD at rest Heart: RRR Lung: decreased breath sounds at the bases Abd: soft, nontender Ext: no edema CBC, BMP 01/16/20 07:41 01/16/20 07:41 Active Medications Acetaminophen (Tylenol -) 500 mg PO Q8H PRN PRN Reason: HEADACHE Last Admin: 01/16/20 13:38 Dose: 500 mg Lidocaine (Lidoderm Patch -) 1 patch TP HS [facility] Last Admin: 01/15/20 21:43 Dose: 1 patch Miscellaneous (Lidoderm Patch Removal) 1 each [facility] DAILY@1000 [facility] Last Admin: 01/16/20 09:19 Dose: 1 each Pantoprazole Sodium (Protonix Iv) 40 mg IVPUSH BID [facility] Last Admin: 01/16/20 09:19 Dose: 40 mg A/P GI Bleed Acute Blood Loss Anemia Thrombocytopenia Leukopenia Chronic Hypoxic Respiratory Failure COPD LV Diastolic Dysfunction Chronic Pericardial Effusion - monitor CBC - transfuse as needed - protonix - O2 to keep SpO2 >90% - DVT prophylaxis
[2020-01-16] MEDS: POLYETHYLENE GLYCOL 3350 119 GM BTL PO SCH (17:32)
[2020-01-16] MEDS: LIDOCAINE 5% TOPICAL PATCH TP SCH (21:32)
[2020-01-17 08:04] LABS: BASO % 1.2 % (0-2.0); EOS % 2.7 % (0-4.5); HEMOGLOBIN 8.4 GM/dL (10.7-15.3); LYMPH % 21.2 % (8-40); MCH 32.9 pg (25.7-33.7); MCHC 33.7 g/dl (32.0-36.0); MEAN CELL VOLUME 97.9 fl (80-96); MEAN PLT VOLUME 7.4 fl (7.5-11.1); NEUT % 65.9 % (42.8-82.8); PLATELET COUNT 58 K/MM3 (134-434); RBC 2.55 M/mm3 (3.60-5.2); RDW 18.3 % (11.6-15.6); WHITE BLOOD COUNT 2.5 K/mm3 (4.0-10.0)
[2020-01-17 09:10] LABS: ALBUMIN 3.1 g/dl (3.4-5.0); BILIRUBIN,TOTAL 1.2 mg/dL (0.2-1); CALCIUM 8.3 mg/dL (8.5-10.1); CREATININE 0.8 mg/dL (0.55-1.3); POTASSIUM 3.8 mmol/L (3.5-5.1); TOT PROT 5.9 g/dl (6.4-8.2)
[2020-01-17] MEDS: ACETAMINOPHEN 500 MG TABLET (FP) PO PRN (09:20)
[2020-01-17] MEDS: PANTOPRAZOLE SODIUM 40 MG VIAL IVPUSH SCH ×2 (09:20→09:22)
[2020-01-17] MEDS: POLYETHYLENE GLYCOL 3350 119 GM BTL PO SCH (09:21)
[2020-01-17] MEDS: LIDOCAINE PATCH REMOVAL MC SCH (09:21)
--- NOTE | 2020-01-17 09:52 | PN ---
Progress Note (short form) - Note Progress Note: Feel overall better. No occult bleeding noted. No CP or SOB. Intake & Output 01/14/20 01/15/20 01/16/20 01/17/20 23:59 23:59 23:59 23:59 Intake Total 1410 1330 1180 Balance 1410 1330 1180 Weight 162 lb 164 lb 12.8 oz 165 lb 168 lb 5 oz Last Vital Signs Temp Pulse Resp BP Pulse Ox 98.0 F 88 20 102/43 L 96 01/17/20 08:05 01/17/20 08:05 01/17/20 08:05 01/17/20 08:05 01/16/20 21:00 Active Medications Acetaminophen (Tylenol -) 500 mg PO Q8H PRN PRN Reason: HEADACHE Last Admin: 01/17/20 09:20 Dose: 500 mg Documented by: Lidocaine (Lidoderm Patch -) 1 patch TP HS [facility] Last Admin: 01/16/20 21:32 Dose: 1 patch Documented by: Miscellaneous (Lidoderm Patch Removal) 1 each MC DAILY@1000 [facility] Last Admin: 01/17/20 09:21 Dose: 1 each Documented by: Pantoprazole Sodium (Protonix Iv) 40 mg IVPUSH BID [facility] Last Admin: 01/17/20 09:22 Dose: Not Given Documented by: Polyethylene Glycol (Miralax (For Daily Use) -) 17 gm PO DAILY [facility] Last Admin: 01/17/20 09:21 Dose: Not Given Documented by: Gen: NAD at rest Heart: RRR Lung: decreased breath sounds at the bases Abd: soft, nontender Ext: no edema Laboratory Results - last 24 hr 01/11/20 01/17/20 01/17/20 14:18 06:45 06:45 WBC 2.5 L RBC 2.55 L Hgb 8.4 L Hct 25.0 L MCV 97.9 H MCH 32.9 MCHC 33.7 RDW 18.3 H Plt Count 58 L MPV 7.4 L Absolute Neuts (auto) 1.6 Neutrophils % 65.9 Lymphocytes % 21.2 Monocytes % 9.0 Eosinophils % 2.7 Basophils % 1.2 Nucleated RBC % 0 Sodium 143 Potassium 3.8 Chloride 112 H Carbon Dioxide 25 Anion Gap 7 L BUN 17.0 Creatinine 0.8 Est GFR (CKD-EPI)AfAm 80.70 Est GFR (CKD-EPI)NonAf 69.63 Random Glucose 138 H Calcium 8.3 L Total Bilirubin 1.2 H AST 16 ALT 14 Alkaline Phosphatase 56 Total Protein 5.9 L Albumin 3.1 L Vitamin B12 1254 H TSH 1.55 Free T4 1.00 Blood Type A POSITIVE Antibody Screen Negative Crossmatch See Detail A/P GI Bleed Acute Blood Loss Anemia Thrombocytopenia Leukopenia Chronic Hypoxic Respiratory Failure COPD LV Diastolic Dysfunction Chronic Pericardial Effusion - Normal transfusion thresholds - DC planning Dr Marks
--- NOTE | 2020-01-17 11:04 | DS ---
Physical Examination Vital Signs: Vital Signs Temperature 98.0 F 01/17/20 08:05 Pulse Rate 88 01/17/20 08:05 Respiratory Rate 20 01/17/20 08:05 Blood Pressure 102/43 L 01/17/20 08:05 O2 Sat by Pulse Oximetry (%) 94 L 01/17/20 10:00 Findings/Remarks: Laboratory Last Values WBC 2.5 K/mm3 (4.0-10.0) L 01/17/20 06:45 RBC 2.55 M/mm3 (3.60-5.2) L 01/17/20 06:45 Hgb 8.4 GM/dL (10.7-15.3) L 01/17/20 06:45 Hct 25.0 % (32.4-45.2) L 01/17/20 06:45 MCV 97.9 fl (80-96) H 01/17/20 06:45 MCH 32.9 pg (25.7-33.7) 01/17/20 06:45 MCHC 33.7 g/dl (32.0-36.0) 01/17/20 06:45 RDW 18.3 % (11.6-15.6) H 01/17/20 06:45 Plt Count 58 K/MM3 (134-434) L 01/17/20 06:45 MPV 7.4 fl (7.5-11.1) L 01/17/20 06:45 Absolute Neuts (auto) 1.6 K/mm3 (1.5-8.0) 01/17/20 06:45 Neutrophils % 65.9 % (42.8-82.8) 01/17/20 06:45 Lymphocytes % 21.2 % (8-40) 01/17/20 06:45 Monocytes % 9.0 % (3.8-10.2) 01/17/20 06:45 Eosinophils % 2.7 % (0-4.5) 01/17/20 06:45 Basophils % 1.2 % (0-2.0) 01/17/20 06:45 Nucleated RBC % 0 % (0-0) 01/17/20 06:45 Retic Count 3.30 % (0.5-1.5) H D 01/11/20 14:18 PT with INR 14.90 SEC (9.7-13.0) H 01/14/20 05:40 INR 1.26 (0.83-1.09) H 01/14/20 05:40 PTT (Actin FS) 38.5 SECONDS (25.2-36.5) H 01/14/20 05:40 Fibrinogen 190.0 mg/dL (238-498) L 01/14/20 05:40 Sodium 143 mmol/L (136-145) 01/17/20 06:45 Potassium 3.8 mmol/L (3.5-5.1) 01/17/20 06:45 Chloride 112 mmol/L (98-107) H 01/17/20 06:45 Carbon Dioxide 25 mmol/L (21-32) 01/17/20 06:45 Anion Gap 7 MMOL/L (8-16) L 01/17/20 06:45 BUN 17.0 mg/dL (7-18) 01/17/20 06:45 Creatinine 0.8 mg/dL (0.55-1.3) 01/17/20 06:45 Est GFR (CKD-EPI)AfAm 80.70 01/17/20 06:45 Est GFR (CKD-EPI)NonAf 69.63 01/17/20 06:45 Random Glucose 138 mg/dL (74-106) H 01/17/20 06:45 Calcium 8.3 mg/dL (8.5-10.1) L 01/17/20 06:45 Phosphorus 3.3 mg/dL (2.5-4.9) 01/16/20 07:41 Magnesium 2.0 mg/dL (1.8-2.4) 01/16/20 07:41 Iron 68 ug/dL (50-175) 01/11/20 14:18 TIBC 352 ug/dL (250-450) 01/11/20 14:18 Iron Saturation 19 % (17.5-39) 01/11/20 14:18 Unsaturated IBC 284 ug/dL (200-275) H 01/11/20 14:18 Ferritin 83.5 ng/ml (8-388) 01/11/20 14:18 Total Bilirubin 1.2 mg/dL (0.2-1) H 01/17/20 06:45 AST 16 U/L (15-37) 01/17/20 06:45 ALT 14 U/L (13-61) 01/17/20 06:45 Alkaline Phosphatase 56 U/L (45-117) 01/17/20 06:45 Creatine Kinase 23 U/L (26-192) L 01/12/20 06:08 Troponin I < 0.02 ng/ml (0.00-0.05) 01/12/20 06:08 Total Protein 5.9 g/dl (6.4-8.2) L 01/17/20 06:45 Albumin 3.1 g/dl (3.4-5.0) L 01/17/20 06:45 Vitamin B12 1254 pg/ml (193-986) H 01/17/20 06:45 TSH 1.55 uIU/ml (0.358-3.74) 01/17/20 06:45 Free T4 1.00 ng/dl (0.76-1.46) 01/17/20 06:45 Stool Occult Blood Positive (NEGATIVE) 01/11/20 14:53 Blood Type A POSITIVE 01/11/20 14:18 Antibody Screen Negative 01/11/20 14:18 Crossmatch See Detail 01/11/20 14:18 Active Medications Generic Name Dose Route Start Last Admin Trade Name Freq PRN Reason Stop Dose Admin Acetaminophen 500 mg 01/15/20 20:59 01/17/20 09:20 Tylenol - PO 500 mg Q8H PRN Administration HEADACHE Lidocaine 1 patch 01/15/20 22:00 01/16/20 21:32 Lidoderm Patch - TP 1 patch HS [facility] Administration Miscellaneous 1 each 01/16/20 10:00 01/17/20 09:21 Lidoderm Patch Removal MC 1 each DAILY@1000 [facility] Administration Pantoprazole Sodium 40 mg 01/15/20 22:00 01/17/20 09:22 Protonix Iv IVPUSH Not Given BID [facility] Polyethylene Glycol 17 gm 01/16/20 17:15 01/17/20 09:21 Miralax (For Daily Use) - PO Not Given DAILY [facility] Constitutional: Yes: No Distress, Calm Eyes: Yes: Conjunctiva Clear HENT: Yes: Atraumatic Neck: Yes: Supple Cardiovascular: Yes: Regular Rate and Rhythm Respiratory: Yes: Regular, CTA Bilaterally Gastrointestinal: Yes: Normal Bowel Sounds, Soft Musculoskeletal: Yes: WNL Extremities: Yes: WNL Edema: No Neurological: Yes: Alert, Oriented Psychiatric: Yes: Alert, Oriented Labs: CBC, BMP 01/17/20 06:45 01/17/20 06:45 Discharge Summary Problems reviewed: Yes Reason For Visit: GI BLEED Current Active Problems GI bleed (Acute) Hospital Course: 79 Y/O FEMALE, PMHX COPD, PERICARDIAL AND PLEURAL EFFUSIONS IN THE PAST, HTN, LIPIDEMIA, OA, PERIPHERAL NEUROPATHY, UNSTEADY GAIT HERE WITH RECTAL BLEED. PATIENT REPORTS SEEING BRIGHT RED BLOOD PER RECTUM AFTER A BOWEL MOVEMENT, THEN MULTIPLE DARK TARRY STOOLS. DENIES FALL, FEVER, RECENT TRAVEL, DRINK 3 CUPS OF TEA DAILY. Patient was evaluated by GI while inpatient and had EGD and colonoscopy on 01/14/20. EGD showed normal mucosa and colonoscopy showed moderate diverticulosis in sigmoid and descending colon, sessle polyp 1cm, blood and clot throughout colon and terminal ileum. Her Hg has stayed stable >8.0. She reports no further episodes of rectal bleeding. SHe is medically stable to be discharged h ome. SHe was instructed to follow up with GI and PCP for management. Condition: Stable - Instructions Diet, Activity, Other Instructions: Follow up with PCP Dr Adorno as scheduled Follow up with GI Dr Frances Avoid Motrin, Ibuprofen, Advil follow up with PCP to monitor Hg level notify PCP if develop SOB, palpitations, dizziness return to ER if develop severe pain, respiratory distress, chest pain, rectal bleeding Referrals: Cody Adorno MD [Staff Physician] - Melvin Frances DO [Staff Physician] - Disposition: VNS/HOME HEALTH CARE - Home Medications Comprehensive Discharge Medication List: Ambulatory Orders Ezetimibe 10 mg PO DAILY 01/11/20 Furosemide 40 mg PO DAILY 01/11/20 Metoprolol Succinate 25 mg PO DAILY 01/11/20 Potassium Chloride 20 meq PO DAILY 01/11/20 Pregabalin [Lyrica] 100 mg PO DAILY 01/11/20 Simvastatin [Zocor] 20 mg PO HS 01/11/20 Vitamin B12 1 tab PO DAILY 01/11/20 Lidocaine 1 each TP DAILY PRN 01/12/20 Acetaminophen [Tylenol .Extra-Strength -] 500 mg PO Q8H PRN tablet 01/17/20 Lidocaine 5% Patch [Lidoderm -] 1 patch TP HS #30 patch 01/17/20 Pantoprazole Sodium [Protonix -] 40 mg PO DAILY #30 tablet.ec 01/17/20 Polyethylene Glycol 3350 [Miralax 119 gm Btl -] 17 gm PO DAILY #1 bottle 01/17/20
--- NOTE | 2020-01-17 11:28 | PN ---
Progress Note (short form) - Note Progress Note: s: no chest pain, palps, dizziness, dyspnea Current Medications Generic Name Dose Route Start Last Admin Trade Name Freq PRN Reason Stop Dose Admin Acetaminophen 500 mg 01/15/20 20:59 01/17/20 09:20 Tylenol - PO 500 mg Q8H PRN Administration HEADACHE Lidocaine 1 patch 01/15/20 22:00 01/16/20 21:32 Lidoderm Patch - TP 1 patch HS [facility] Administration Miscellaneous 1 each 01/16/20 10:00 01/17/20 09:21 Lidoderm Patch Removal MC 1 each DAILY@1000 [facility] Administration Pantoprazole Sodium 40 mg 01/15/20 22:00 01/17/20 09:22 Protonix Iv IVPUSH Not Given BID [facility] Polyethylene Glycol 17 gm 01/16/20 17:15 01/17/20 09:21 Miralax (For Daily Use) - PO Not Given DAILY [facility] Vital Signs Period Temp Pulse Resp BP Sys/Rider Pulse Ox Last 24 Hr 97.2 F-98.0 F 85-90 20-20 92-115/43-58 94-96 Constitutional: Yes: No Distress Cardiovascular: Yes: Regular Rate and Rhythm Respiratory: Yes: CTA Bilaterally nl eff Gastrointestinal: Yes: Soft (NT) Edema: No Neurological: Yes: Alert, Oriented no jaundice, diaphoresis not agitated CBC, BMP 01/17/20 06:45 01/17/20 06:45 - ....Imaging EKG: Image Reviewed echo 01/2020 mild conc LVH, nl LV function, RV mild-mod dilated with reduced f unction, LA severely dilated, mild to mod MR, mild MS, severe MAC, trivial to small pericardial effusion, RVSP 50-60 mmHg Assessment/Plan IMP: Acute GI bleed Relative hypotension in setting of above- not requiring pressors Known chronic moderate pericardial effusion, no tamponade (-SAADIA/ESR/TSH, recent chest CT no mass)-- followed closely and unchanged CAD s/p AZ and prior cath (remote)- anatomy not amenable to revasc Chronic COPD AAA of 4.5cm followed by Vascular (Sandra) Moderate Moderate to severe chronic PHTN secondary to COPD DM Cirrhosis Chronic thrombocytopenia REC: 1. GIB: -Holding ASA - s/p EGD/colo, likely diverticular bleed, manage per GI 2. Hypotension: not requiring pressors or transfusion to this point. -bp improved now 3. pericardial effusion - trivial to small pericardial effusion on echo here - since approx June 2019 - the effusion was moderate and unchanged without tamponade - reviewed by CT surgery and interventional, not amenable to needle drainage and declined window in the past - higher risk due to her chronic low platelets. -improved on echo here 4. CAD: chronic, stable -Holding ASA -cont metoprolol 5. COPD: chronic, stable. Supp O2 as needed 6. AAA: followed by Dr. Flores. 4.5-5cm, outpatient follow up 7. Moderate : asx, serial echo f/u 8. PHTN: moderate to severe secondary to COPD, no specific Rx indicated other than supp O2 and optimization of COPD regimen 9. DM: as per PMD 10. Cirrhosis: thought to be etiology of thrombocytopenia 11. Thrombocytopenia: as above, Heme evaluation. Transfuse as needed for GIB
[2020-01-17 12:22] VITALS: BP 94/58; PULSE 82; TEMP 98.7
== END 2020-01-17 13:39 | disposition home or self-care (01) | DRG 378 ==
LOC: FER 13:18 → JICU 19:24 → J6S 01-15 20:24
PROVIDERS: ADMIT Family Medicine; ATTEND Family Medicine
PROC: 30233R1 Transfusion of Nonautologous Platelets into Peripheral Vein, Percutaneous Approach (ICD-10-PCS; 2020-01-11)
PROC: 30233N1 Transfusion of Nonautologous Red Blood Cells into Peripheral Vein, Percutaneous Approach (ICD-10-PCS; 2020-01-13)
PROC: 0DJD8ZZ Inspection of Lower Intestinal Tract, Via Natural or Artificial Opening Endoscopic (ICD-10-PCS; 2020-01-14)
PROC: 0DJ08ZZ Inspection of Upper Intestinal Tract, Via Natural or Artificial Opening Endoscopic (ICD-10-PCS; principal; 2020-01-14 10:00)
DX: K57.31 Diverticulosis of large intestine without perforation or abscess with bleeding (principal); I31.3 Pericardial effusion (noninflammatory); I50.32 Chronic diastolic (congestive) heart failure; D62 Acute posthemorrhagic anemia; J96.11 Chronic respiratory failure with hypoxia; I11.0 Hypertensive heart disease with heart failure; I50.9 Heart failure, unspecified; J44.9 Chronic obstructive pulmonary disease, unspecified; D69.6 Thrombocytopenia, unspecified; Z99.81 Dependence on supplemental oxygen; I25.10 Atherosclerotic heart disease of native coronary artery without angina pectoris; I25.2 Old myocardial infarction; I35.0 Nonrheumatic aortic (valve) stenosis; K74.60 Unspecified cirrhosis of liver; I71.4 Abdominal aortic aneurysm, without rupture; I27.20 Pulmonary hypertension, unspecified; I95.9 Hypotension, unspecified; E11.42 Type 2 diabetes mellitus with diabetic polyneuropathy; K31.7 Polyp of stomach and duodenum; R16.1 Splenomegaly, not elsewhere classified; K63.5 Polyp of colon; K64.8 Other hemorrhoids
CPT/HCPCS: 36415; 36430; 36511; 71045-TC-FY; 80048; 80053; 82272; 82550; 82607; 82728; 83540; 83550; 83735; 84100; 84439; 84443; 84484; 85025; 85027; 85044; 85384; 85610; 85730; 86850; 86900; 86901; 86922; 93005; 93306-TC; 97116-GP; 97161-GP; 99285-25; P9034; P9038; P9058